=== PATIENT | male | born 1965 | race Caucasian/White ===

== ENCOUNTER 2025-03-02 17:37 | Emergency (ER) | payer OTHER, SELFPAY ==
--- OUTSIDE RECORDS SUMMARY | 2016-07-09 19:00 | XMS_ITS | Continuity of Care Document ---
Author Organization [facility] Address [address] [facility] [address] [place] [address] Phone Care Team Providers Care Sas Clinical Programmer Name Role Phone Bruce WILDER, Ross Unavailable Unavailab le Procedures Procedure Date TTE W/DOPPLER, COMPLETE Advance Directives Directive Yes / No Effective Date File Name No Information Encounters Encounter Description Practice Location Reason(s) For Visit Diagnoses Date Provider Providers Copied on Encounter [facility], [address] [facility] [address], [place], [place], [id number], tel:[phone] [facility] OUTPT [facility] No Information 7 Bruce Hawkins. [address] [facility], [facility] [address], [place], [place], [id number], . tel:[phone] Referring Provider: Ross Barrera, [address] [facility] [address], [place], [address]. tel:[phone] Family History Family Member Type Diagnosis Age At Onset No Information Payers Payer name Insurance type Covered alliance party ID Authoriza tieliseo(s) [employer] PPO CI [id number] Social History Type Description Quantity Date Captured Comments Sex Male Smoking Status No Information Chief Complaint And Reason For Visit No Information Reason For Referral Reason For Referral No Information History Of Present Illness Encounter Date Complaint History Of Prese nt Illness No Information Functional Status Date Functional Assessmen t No Information Instructions Date Instruction Additional Infor mation No Information Assessments Type Assessment Date No Information Patient Care Teams Name Effective Dates (start - stop) Status Members No Information
--- OUTSIDE RECORDS SUMMARY | 2016-07-09 19:00 | XMS_ITS | Continuity of Care Document ---
Author Organization [facility] Address [address] [facility] [address] [place] [address] Phone Care Team Providers Care Scorer Helper Name Role Phone Bruce WILDER, Ross Unavailable Unavailab le Procedures Procedure Date TTE W/DOPPLER, COMPLETE Advance Directives Directive Yes / No Effective Date File Name No Information Encounters Encounter Description Practice Location Reason(s) For Visit Diagnoses Date Provider Providers Copied on Encounter [facility], [address] [facility] [address], [place], [place], [id number], tel:[phone] [facility] OUTPT [facility] No Information [address] [facility], [facility] [address], [place], [place], [id number], . tel:[phone] Referring Provider: Ross Barrera, [address] [facility] [address], [place], [address]. tel:[phone] Family History Family Member Type Diagnosis Age At Onset No Information Payers Payer name Insurance type Covered green party ID Authoriza tieliseo(s) [employer] PPO CI [id number] Social History Type Description Quantity Date Captured [...]
--- OUTSIDE RECORDS SUMMARY | 2025-01-26 12:20 | XMS_ITS | Encounter Summary ---
Author Organization [facility] Address [address] [place] [address] Care Team Providers Care Software Tester Name Role Phone Unavailable Primary Care Provider Unavailabl e Encounter Details Date Type Department Care Team (Latest Contact Info) Description 01/26/2025 12:20 PM CDT Ancillary Procedure Department of Radiology in [place], [place] [address] [place] [address] Harshad Perez M.D. [address] [place] [address] Multiple Myeloma Not Having Achieved Remission (HCC) Social History Tobacco Use Types Packs/Day Years Used Date Smoking Tobacco: Never Assessed Hunger Vital Sign Answer Date Recorded Within the past 12 months, y ou worried that your food would run out before you got the money to buy more. Never true 01/28/20 25 Within the past 12 months, t he food you bought just didn't last and you didn't have money to get more. Never true 01/27/2025 PRAPARE - Transportation Answer Date Re corded In the past 12 months, has l ack of transportation kept you from medical appointments or from getting medications? No 01/05 In the past 12 months, has l ack of transportation kept you from meetings, work, or from getting things needed for daily living? No 01/27/2025 [facility] Utilities Answer Date Recorded In the past 12 months has th e electric, gas, oil, or water company threatened to shut off services in your home? No 01/27/2025 Housing Stability Answer Date Recorded What is your living situation today? I have a [facility] place to live 01/27/2025 Sex and Gender Information Value Date Recorded Sex Assigned at Male 01/27/2025 2:34 PM CDT Legal Sex Male 6:33 AM INFORMATION AND REFERRAL DIRECTOR Gender Identity Male 01/27/2025 2:34 PM CDT Sexual Orientation Straight 01/27/2025 2: 34 PM CDT documented as of this encounter Plan of Treatment Upcoming Encounters Date Type Department Care Team (Latest Contact Info) Description 03/08/2025 8:00 AM CDT Appointment Department of Laboratory Medicine and Pathology, [facility] in [place], [place] [address] [place] [phone] Constantin López M.D. [address] [place] [phone] 03/08/2025 8:45 AM CDT Infusion Department of Oncology in [place], [place] [address] [place] [phone] Constantin López M.D. [address] [place] [phone] 03/08/2025 10:30 AM CDT Comprehensive Visit Department of Vascular Medicine in [place], [place] [address] [place] [phone] Vic Flores M.D. [address] [place] [phone] 03/11/2025 12:30 PM CDT Diagnostic Division of Pulmonary Medicine in [place], [place] [address] [place] [phone] Constantin López M.D. [address] [place] [phone] 03/11/2025 2:00 PM CDT Appointment Department of Vascular Medicine in [place], [place] [address] [place] [phone] Constantin López M.D. [address] [place] [phone] Discharge Disposition: Home or Self Care 03/15/2025 9:00 AM CDT Comprehensive Visit Department of Spine in [place], [place] [address] [place] [phone] Hebert Francis APRN, C.N.P., M.S.N. [address] [place] [phone] 03/15/2025 12:30 PM CDT Appointment Department of Laboratory Medicine and Pathology, [facility] [place], [place] [address] [place] [phone] Harshad Perez M.D. [address] [place] [phone] 03/15/2025 2:30 PM CDT Office Visit Division of Hematology in [place], [place] [address] [place] [phone] Mely Hayden APRN, C.N.P., D.N.P., M.S. [address] [place] [phone] 03/15/2025 4:00 PM CDT Infusion Department of Oncology in [place], [place] [address] [place] [phone] Harshad Perez M.D. [address] [place] [phone] 03/16/2025 1:30 PM CDT Comprehensive Visit Division of Pulmonary Medicine in [place], [place] [address] [place] [phone] Morgan Peck M.D. [address] [place] [phone] 03/22/2025 11:10 AM CDT Appointment Department of Laboratory Medicine and Pathology, [facility] in [place], [place] [address] [place] [address] Harshad Perez M.D. [address] [place] [phone] 03/22/2025 1:00 PM CDT Infusion Department of Oncology in [place], [place] [address] [place] [address] Harshad Perez M.D. [address] [place] [phone] 03/29/2025 9:15 AM CDT Appointment Division of Pulmonary Medicine in [place], [place] [address] [place] [phone] Harshad Perez M.D. [address] [place] [phone] Discharge Disposition: Home or Self Care 03/29/2025 10:30 AM CDT Appointment Department of Laboratory Medicine and Pathology, [facility] in [place], [place] [address] [place] [address] Harshad Perez M.D. [address] [place] [phone] 03/29/2025 11:15 AM CDT Nurse Only Division of Hematology in [place], [place] [address] [place] [phone] Harshad Perez M.D. [address] [place] [phone] 03/29/2025 1:30 PM CDT Infusion Department of Oncology in [place], [place] [address] [place] [phone] Harshad Perez M.D. [address] [place] [phone] 04/05/2025 10:10 AM CDT Appointment Department of Laboratory Medicine and Pathology, [facility] [place], [place] [address] [place] [phone] Harshad Perez M.D. [address] [place] [phone] 04/05/2025 12:00 PM CDT Infusion Department of Oncology in [place], [place] [address] [place] [phone] Harshad Perez M.D. [address] [place] [phone] 04/12/2025 11:40 AM CDT Appointment Department of Laboratory Medicine and Pathology, [facility] [place], [place] [address] [place] [phone] Harshad Perez M.D. [address] [place] [phone] 04/12/2025 1:30 PM CDT Office Visit Division of Hematology in [address] [phone] Tr Hernandez M.D. [address] [place] [phone] 04/12/2025 3:30 PM CDT Infusion Department of Oncology in [place], [place] [address] [place] [phone] Harshad Perez M.D. [address] [place] [phone] 04/19/2025 10:15 AM CDT Infusion Department of Oncology in [place], [place] [address] [place] [phone] Harshad Perez M.D. [address] [place] [phone] 04/26/2025 10:10 AM CDT Appointment Department of Laboratory Medicine and Pathology, [facility] [place], [place] [address] [place] [phone] Harshad Perez M.D. [address] [place] [phone] 04/26/2025 11:00 AM CDT Nurse Only Division of Hematology in [place], [place] [address] [place] [phone] Harshad Perez M.D. [address] [place] [phone] 04/26/2025 12:00 PM CDT Infusion Department of Oncology in [place], [place] [address] [place] [phone] Harshad Perez M.D. [address] [place] [phone] 04/26/2025 1:30 PM CDT Appointment Division of Pulmonary Medicine in [place], [place] [address] [place] [phone] Harshad Perez M.D. [address] [place] [phone] Discharge Disposition: Home or Self Care 05/03/2025 10:15 AM CDT Infusion Department of Oncology in [place], [place] [address] [place] [phone] Harshad Perez M.D. [address] [place] [phone] 05/10/2025 9:40 AM INFORMATION AND REFERRAL DIRECTOR Appointment Department of Laboratory Medicine and Pathology, [facility] in [place], [place] [address] [place] [phone] Constantin López M.D. [address] [place] [phone] 05/10/2025 11:30 AM INFORMATION AND REFERRAL DIRECTOR Office Visit Division of Hematology in [place], [place] [address] [place] [phone] Mely Hayden, ANY, C.N.P., D.N.P., M.S. [address] [place] [phone] 05/10/2025 1:00 PM INFORMATION AND REFERRAL DIRECTOR Infusion Department of Oncology in [place], [place] [address] [place] [address] Constantin López M.D. [address] [place] [phone] 05/17/2025 10:15 AM INFORMATION AND REFERRAL DIRECTOR Infusion Department of Oncology in [place], [place] [address] [place] [address] Constantin López M.D. [address] [place] [phone] 05/24/2025 10:00 AM INFORMATION AND REFERRAL DIRECTOR Appointment Department of Laboratory Medicine and Pathology, [facility], in [place], [place] [address] [place] [phone] Constantin López M.D. [address] [place] [phone] 05/24/2025 10:45 AM INFORMATION AND REFERRAL DIRECTOR Appointment Division of Pulmonary Medicine in [place], [place] [address] [place] [phone] Harshad Perez M.D. [address] [place] [phone] Discharge Disposition: Home or Self Care 05/24/2025 12:00 PM INFORMATION AND REFERRAL DIRECTOR Infusion Department of Oncology in [place], [place] [address] [place] [address] Constantin López M.D. [address] [place] [address] 05/31/2025 10:00 AM INFORMATION AND REFERRAL DIRECTOR Infusion Department of Oncology in [place], [place] [address] [place] [address] Constantin López M.D. [address] [place] [address] documented as of this encounter Procedures Procedure Name Priority Date/Time Associated Diagnosis Comments INTERPRETATION OF OUTSIDE NM PET SCAN RAD - Routine (most inpatients and all outpatients) 01/26/2025 12:21 PM CDT Multiple Myeloma Not Having Achieved Remission (HCC) documented in this encounter Results * Interpretation of Outside NM PET Scan (01/26/2025 12:21 PM CDT) Anatomical Region Laterality Modality Nuclear Medicine PET RST LOS , Nuclear Medicine ARZ LOS, Nuclear Medicine FLA LOS, Nuclear Medicine, Other, Neuroradiology ARZ LOS, Neuroradiology FLA LOS, Neuroradiology RST LOS, Body N/A Nuclear Medicine Impressions 01/27/2025 8:37 PM CDT 1. Intense FDG bone marrow uptake throughout the skeleton with associated numerous lytic changes, consistent with active myelomatous disease. 2. Mildly increased FDG uptake within the nonenlarged spleen, nonspecific and could be seen in the setting of systemic immune reaction. Splenic involvement in multiple myeloma is rare, but cannot be entirely excluded. 3. Mildly FDG avid portocaval and aortocaval lymph nodes may be reactive. * Deauville score: 5 Narrative 01/27/2025 8:37 PM CDT REVISED REPORT: EXAM: INTERPRETATION OF OUTSIDE NM PET SCAN dated 01/20/2025. TECHNIQUE: FDG PET/CT. Please refer to the marginal Outside PET report for details regarding the study protocol in the image acquisition. No multiple reconstructions and fusion of the images from orbits through the mid thigh were available for interpretation. COMPARISON: Outside CT chest abdomen pelvis from 01/17/2025 INDICATION: Newly diagnosed multiple myeloma, staging. Initial treatment strategy. FINDINGS: Intense and diffuse FDG uptake, markedly higher than hepatic background, throughout the visualized skeleton bone marrow with associated numerous lytic changes, consistent with active myelomatous disease. Bilateral subcentimeter upper cervical lymph nodes demonstrating mild FDG uptake, equal to or slightly above blood pool activity (SULLY 10). A few mildly FDG-avid lymph nodes noted in the precaval (SULLY 140) and aortocaval (SULLY 134) regions, at the level of blood pool activity, indeterminate for myelomatous involvement. No other suspicious FDG avid lymph nodes above and below the diaphragm. Diffuse physiologic FDG uptake within the liver. Diffuse increased FDG uptake within the nonenlarged spleen (SUV max: 3.9), which is slightly higher than the hepatic background activity (SUV max: 3.2), nonspecific and could be seen in the setting of systemic immune reaction. Focus of FDG uptake within the gastroesophageal junction, likely inflammatory. Significant incidental findings on the low-dose noncontrast CT: Bilateral subsegmental atelectasis. Splenule. Hepatic cysts. Tiny fat-containing umbilical hernia. Procedure Note Jazmín Deal M.D., Ph.D. - 01/28/2025 REVISED REPORT: EXAM: INTERPRETATION OF OUTSIDE NM PET SCAN dated 01/20/2025. TECHNIQUE: FDG PET/CT. Please refer to the marginal Outside PET reportfor details regarding the study protocol in the image acquisition. Nomultiple reconstructions and fusion of the images from orbits through themid thigh were available for interpretation. COMPARISON: Outside CT chest abdomen pelvis from 01/17/2025 INDICATION: Newly diagnosed multiple myeloma, staging. Initial treatmentstrategy. FINDINGS: Intense and diffuse FDG uptake, markedly higher than hepatic background,throughout the visualized skeleton bone marrow with associated numerouslytic changes, consistent with active myelomatous disease. Bilateral subcentimeter upper cervical lymph nodes demonstrating mild FDGuptake, equal to or slightly above blood pool activity (SULLY 10). A fewmildly FDG-avid lymph nodes noted in the precaval (SULLY 140) and aortocaval(SULLY 134) regions, at the level of blood pool activity, indeterminate for myelomatous involvement. No othersuspicious FDG avid lymph nodes above and below the diaphragm. Diffuse physiologic FDG uptake within the liver. Diffuse increased FDG uptake within the nonenlarged spleen (SUV max: 3.9),which is slightly higher than the hepatic background activity (SUV max:3.2), nonspecific and could be seen in the setting of systemic immunereaction. Focus of FDG uptake within the gastroesophageal junction, likelyinflammatory. Significant incidental findings on the low-dose noncontrast CT: Bilateralsubsegmental atelectasis. Splenule. Hepatic cysts. Tiny fat-containingumbilical hernia. IMPRESSION: 1. Intense FDG bone marrow uptake throughout the skeleton with associatednumerous lytic changes, consistent with active myelomatous disease. 2. Mildly increased FDG uptake within the nonenlarged spleen, nonspecificand could be seen in the setting of systemic immune reaction. Splenicinvolvement in multiple myeloma is rare, but cannot be entirelyexcluded. 3. Mildly FDG avid portocaval and aortocaval lymph nodes may bereactive. * Deauville score: 5 us Harshad Perez M.D. [facility] PROCEDURES Edite d Result - Final documented in this encounter Visit Diagnoses Diagnosis Multiple Myeloma Not Having Achieved Remission (HCC) documented in this encounter
--- OUTSIDE RECORDS SUMMARY | 2025-01-27 10:44 | XMS_ITS | Encounter Summary ---
Author Organization [facility] Address [address] [place] [id number] Care Team Providers Care Third Hand Name Role Phone Unavailable Primary Care Provider Unavailabl e Encounter Details Date Type Department Care Team (Latest Contact Info) Description 01/27/2025 10:44 AM CDT - 01/27/2025 11:59 PM CDT Hospital Encounter Department of Laboratory Medicine and Pathology, [facility], in [place], [place] [address] [place] [address] Harshad Perez M.D. [address] [place] [address] Multiple Myeloma Not Having Achieved Remission (HCC) Discharge Disposition: Home or Self Care Social History Tobacco Use Types Packs/Day Years Used Date Smoking Tobacco: Former Cigarettes 0.8 36.2 0 12/10/1974 - 03/06/2011 Smokeless Tobacco: Never Comments:I started smoking b efore entering high school, but probably didn't start to inhale until my freshman year. Between the time I started and the time I finally stopped I had quit several times, once for as long as three years. Alcohol Use Standard Drinks/Week Comments Yes 0 (1 standard drink = 0.6 oz pure alcohol) I seldom drink alcohol now, just a beer or glass of wine at family holidays. In my late teens through my twenties I drank on weekends. Hunger Vital Sign Answer Date Recorded Within [...] things needed for daily living? No 01/27/2025 [facility] Utilities Answer Date Recorded In the past 12 months has [employer] gas, oil, or water [employer] threatened to shut off services in your home? No 01/27/2025 Housing Stability Answer Date Recorded What is your living situation today? 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 100 tablet 3 01/27/2025 ondansetron (Zofran) 8 mg tabletIndication s:Multiple Myeloma Not Having Achieved Remission (HCC) Take 1 tablet (8 mg total) by mouth every 8 (eight) hours as needed for nausea or vomiting (unrelieved by prochlorperazine). 30 tablet 3 01/28/2025 12:05 PM CDT 01/27/2025 6 prochlorperazine (Compazine) 10 mg tabletIndication s:Multiple Myeloma Not Having Achieved Remission (HCC) Take 1 tablet (10 mg total) by mouth every 6 (six) hours as needed for nausea or vomiting. 30 tablet 3 01/28/2025 12:05 PM CDT 01/27/2025 6 dexAMETHasone (Decadron) 4 mg tabletIndication s:Multiple Myeloma Not Having Achieved Remission (HCC) Take 10 tablets (40 mg total) by mouth once a week for 4 doses. Take on days 1, 8, 15, and 22. If it is a day you are receiving daratumumab, take dexAMETHasone prior to infusion appointment. 40 tablet 01/28/2025 12:05 PM CDT 01/28/2025 5 acyclovir (Zovirax) 400 mg tabletIndication s:Multiple Myeloma Not Having Achieved Remission (HCC) Take 1 tablet (400 mg total) by mouth 2 (two) times a day. 60 tablet 6 01/28/2025 12:05 PM CDT 01/27/2025 5 levoFLOXacin (Levaquin) 250 mg tabletIndication s:Multiple Myeloma Not Having Achieved Remission (HCC) Take 1 tablet (250 mg total) by mouth daily. 30 tablet 2 01/28/2025 12:05 PM CDT 01/27/2025 5 documented as of this encounter Plan of Treatment Upcoming Encounters Date Type Department Care Team (Latest Contact Info) Description 03/08/2025 8:00 AM CDT Appointment Department of Laboratory Medicine and Pathology, [facility] in [place], [place] [address] [place] [address] Constantin López M.D. [address] [place] [phone] 03/08/2025 8:45 AM CDT Infusion Department of Oncology in [place], [place] [address] [place] [phone] Constantin López M.D. [address] [place] [phone] 03/08/2025 10:30 AM CDT Comprehensive Visit Department of Vascular Medicine in [place], [place] [address] [place] [phone] Vic Flores M.D. [address] [place] [phone] 03/11/2025 12:30 PM CDT Diagnostic Division of Pulmonary Medicine in [place], [place] [address] [place] [phone] Constantin López M.D. [address] [place] [phone] 03/11/2025 2:00 PM CDT Appointment Department of Vascular Medicine in [place], [place] [address] [place] [address] Constantin López M.D. [address] [place] [phone] Discharge Disposition: Home or Self Care 03/15/2025 9:00 AM CDT Comprehensive Visit Department of Spine in [place], [place] [address] [place] [phone] Hebert Francis APRN, C.N.P., M.S.N. [address] [place] [phone] 03/15/2025 12:30 PM CDT Appointment Department of Laboratory Medicine and Pathology, [facility] in [place], [place] [address] [place] [phone] Harshad Perez M.D. [address] [place] [phone] 03/15/2025 2:30 PM CDT Office Visit Division of Hematology in [place], [place] [address] [place] [phone] Mely Hayden APRN, C.N.P., D.N.P., M.S. [address] [place] [phone] 03/15/2025 4:00 PM CDT Infusion Department of Oncology in [place], [place] [address] [place] [phone] Harshad Perez M.D. [address] [place] [phone] 03/16/2025 1:30 PM CDT Comprehensive Visit Division of Pulmonary Medicine in [place], [place] [address] [place] [phone] Morgan Peck M.D. [address] [place] [phone] 03/22/2025 11:10 AM CDT Appointment Department of Laboratory Medicine and Pathology, [facility] in [place], [place] [address] [place] [phone] Harshad Perez M.D. [address] [place] [phone] 03/22/2025 1:00 PM CDT Infusion Department of Oncology in [place], [place] [address] [place] [phone] Harshad Perez M.D. [address] [place] [phone] 03/29/2025 9:15 AM CDT Appointment Division of Pulmonary Medicine in [place], [place] [address] [place] [address] Harshad Perez M.D. [address] [place] [phone] Discharge Disposition: Home or Self Care 03/29/2025 10:30 AM CDT Appointment Department of Laboratory Medicine and Pathology, [facility], in [place], [place] [address] [place] [address] Harshad Perez M.D. [address] [place] [phone] 03/29/2025 11:15 AM CDT Nurse Only Division of Hematology in [place], [place] [address] [place] [address] Harshad Perez M.D. [address] [place] [phone] 03/29/2025 1:30 PM CDT Infusion Department of Oncology in [place], [place] [address] [place] [phone] Harshad Perez M.D. [address] [place] [phone] 04/05/2025 10:10 AM CDT Appointment Department of Laboratory Medicine and Pathology, [facility] in [place], [place] [address] [place] [phone] Harshad Perez M.D. [address] [place] [phone] 04/05/2025 12:00 PM CDT Infusion Department of Oncology in [place], [place] [address] [place] [phone] Harshad Perez M.D. [address] [place] [phone] 04/12/2025 11:40 AM CDT Appointment Department of Laboratory Medicine and Pathology, [facility] in [place], [place] [address] [place] [phone] Harshad Perez M.D. [address] [place] [phone] 04/12/2025 1:30 PM CDT Office Visit Division of Hematology in [place], [place] [address] [place] [phone] Tr Hernandez M.D. [address] [place] [phone] 04/12/2025 3:30 PM CDT Infusion Department of Oncology in [place], [place] [address] [place] [address] Harshad Perez M.D. [address] [place] [phone] 04/19/2025 10:15 AM CDT Infusion Department of Oncology in [place], [place] [address] [place] [address] Harshad Perez M.D. [address] [place] [phone] 04/26/2025 10:10 AM CDT Appointment Department of Laboratory Medicine and Pathology, [facility] in [place], [place] [address] [place] [address] Harshad Perez M.D. [address] [place] [phone] 04/26/2025 11:00 AM CDT Nurse Only Division of Hematology in [place], [place] [address] [place] [address] Harshad Perez M.D. [address] [place] [phone] 04/26/2025 12:00 PM CDT Infusion Department of Oncology in [place], [place] [address] [place] [address] Harshad Perez M.D. [address] [place] [phone] 04/26/2025 1:30 PM CDT Appointment Division of Pulmonary Medicine in [place], [place] [address] [place] [phone] Harshad Perez M.D. [address] [place] [phone] Discharge Disposition: Home or Self Care 05/03/2025 10:15 AM CDT Infusion Department of Oncology in [place], [place] [address] [place] [phone] Harshad Perez M.D. [address] [place] [phone] 05/10/2025 9:40 AM STOPPING BUILDER Appointment Department of Laboratory Medicine and Pathology, [place], [place] [address] [place] [phone] Constantin López M.D. [address] [place] [phone] 05/10/2025 11:30 AM STOPPING BUILDER Office Visit Division of Hematology in [place], [place] [address] [place] [phone] Mely Hayden APRN, C.N.P., D.N.P., M.S. [address] [place] [phone] 05/10/2025 1:00 PM STOPPING BUILDER Infusion Department of Oncology in [place], [place] [address] [place] [phone] Constantin López M.D. [address] [place] [phone] 05/17/2025 10:15 AM STOPPING BUILDER Infusion Department of Oncology in [place], [place] [address] [place] [phone] Constantin López M.D. [address] [place] [phone] 05/24/2025 10:00 AM STOPPING BUILDER Appointment Department of Laboratory Medicine and Pathology, [facility] in [place], [place] [address] [place] [phone] Constantin López M.D. [address] [place] [phone] 05/24/2025 10:45 AM STOPPING BUILDER Appointment Division of Pulmonary Medicine in [place], [place] [address] [place] [phone] Harshad Perez M.D. [address] [place] [phone] Discharge Disposition: Home or Self Care 05/24/2025 12:00 PM STOPPING BUILDER Infusion Department of Oncology in [place], [place] [address] [place] [phone] Constantin López M.D. [address] [place] [phone] 05/31/2025 10:00 AM STOPPING BUILDER Infusion Department of Oncology in [place], [place] [address] [place] [address] Constantin López M.D. [address] [place] [phone] documented as of this encounter Procedures Procedure Name Priority Date/Time Associated Diagnosis Comments QUANTITATIVE M-PROTEIN STUDY, S Routine 01/27/2025 11:20 AM CDT Multiple Myeloma Not Having Achieved Remission (HCC) HIV-1/-2 AG AND AB SCREEN, PLASMA Routine 01/27/2025 11:20 AM CDT Multiple Myeloma Not Having Achieved Remission (HCC) PLASMA CELL ASSESSMENT, B Routine 01/27/2025 11:20 AM CDT Multiple Myeloma Not Having Achieved Remission (HCC) NT-PRO B-TYPE NATRIURETIC PEPTIDE (BNP), S Routine 01/27/2025 11:20 AM CDT Multiple Myeloma Not Having Achieved Remission (HCC) IMMUNOGLOBULIN FREE LIGHT CHAINS, S Routine 01/27/2025 11:20 AM CDT Multiple Myeloma Not Having Achieved Remission (HCC) HBC TOTAL AB, SERUM Routine 01/27/2025 1 1:20 AM CDT Multiple Myeloma Not Having Achieved Remission (HCC) HBS ANTIBODY, SERUM Routine 01/27/2025 1 1:20 AM CDT Multiple Myeloma Not Having Achieved Remission (HCC) HEPATITIS B SURFACE ANTIGEN Routine 01/27/2025 11:20 AM CDT Multiple Myeloma Not Having Achieved Remission (HCC) CBC WITH DIFFERENTIAL, B Routine 025 11:20 AM CDT Multiple Myeloma Not Having Achieved Remission (HCC) URIC ACID, S/P Routine 01/27/2025 11:20 AM CDT Multiple Myeloma Not Having Achieved Remission (HCC) TROPONIN T, 5TH GEN, P Routine 11:20 AM CDT Multiple Myeloma Not Having Achieved Remission (HCC) ALANINE AMINOTRANSFERASE (ALT), S/P Routine 01/27/2025 11:20 AM CDT Multiple Myeloma Not Having Achieved Remission (HCC) ASPARTATE AMINOTRANSFERASE (AST), S/P Routine 01/27/2025 11:20 AM CDT Multiple Myeloma Not Having Achieved Remission (HCC) POTASSIUM, S/P Routine 01/27/2025 11:20 AM CDT Multiple Myeloma Not Having Achieved Remission (HCC) ALKALINE PHOSPHATASE, S/P Routine 01/27/2025 11:20 AM CDT Multiple Myeloma Not Having Achieved Remission (HCC) CREATININE WITH EGFR, S/P Routine 01/27/2025 11:20 AM CDT Multiple Myeloma Not Having Achieved Remission (HCC) CALCIUM, TOT, S/P Routine 01/27/2025 11: 20 AM CDT Multiple Myeloma Not Having Achieved Remission (HCC) BILIRUBIN, TOT, S/P Routine 01/27/2025 1 1:20 AM CDT Multiple Myeloma Not Having Achieved Remission (HCC) ALBUMIN, S/P Routine 01/27/2025 11:20 AM CDT Multiple Myeloma Not Having Achieved Remission (HCC) documented in this encounter Results * (ABNORMAL) Uric Acid (01/27/2025 11:20 AM CDT) [facility] Uric Acid, S 9.1(H) 3.7 - 8.0 mg/dL 01/27/2025 12:34 PM CDT DT Blood (Blood, Venous) 01/27/2025 11:20 AM CDT 01/27/2025 11:42 AM CDT us Harshad Perez M.D. LAB BLOOD ADD-ON Final Result [facility] [address] [place] [address], [facility] [address] [place] [address] * HBc Total Ab, Serum (01/27/2025 11:20 AM CDT) [facility] HBc Total Ab, S Negative Negative 01/27/2025 4:02 PM CDT [facility] Blood (Blood, Venous) 01/27/2025 11:20 AM CDT 01/27/2025 3:02 PM CDT Harshad Perez M.D. LAB MICROBIOLOGY - BLOO D ORDERABLES Final Result [facility] [address] [place] [address] [facility] [address] [place] [address] * HBs Antibody, Serum (01/27/2025 11:20 AM CDT) [facility] HBs Antibody, S Positive 4:02 PM CDT [facility] Comment: Patient is considered to have been exposed to HBV or immune from HBV vaccination. ----REFERENCE VALUE---- Unvaccinated: Negative Vaccinated: Positive HBs Antibody, Quantitative, S 201 mIU/mL 01/27/2025 4:02 PM CDT [facility] Comment: ----REFERENCE VALUE---- Unvaccinated: <8.5 mIU/mL Vaccinated: >=11.5 mIU/mL Blood (Blood, Venous) 01/27/2025 11:20 AM CDT 01/27/2025 3:02 PM CDT us Harshad Perez M.D. LAB MICROBIOLOGY - BLOO D ORDERABLES Final Result Performing Organization Address City/[facility]/ZIP Co de Phone Number [facility] [address] [place] [address] [facility] [address] [place] [place] [address] * Hepatitis B Surface Antigen (01/27/2025 11:20 AM CDT) [facility] HBs Antigen, S Negative Negative 01/27/2025 4:02 PM CDT [facility] Blood (Blood, Venous) 01/27/2025 11:20 AM CDT 01/27/2025 3:02 PM CDT us Harshad Peerz M.D. LAB MICROBIOLOGY - BLOO D ORDERABLES Final Result [facility] [address] [place] [address] [facility] [address] [place] [address] * HIV-1/-2 Ag and Ab Screen, Plasma (01/27/2025 11:20 AM CDT) [facility] HIV-1/-2 Ag and Ab Screen, P Negative Negative 01/27/2025 3:18 PM CDT [facility] Comment: Negative result does not rule out HIV infection. If exposure to HIV infection occurred <14 days ago, contact the laboratory to request addition of HIV-1/HIV-2 RNA detection, Plasma (HIP12). Blood (Blood, Venous) 01/27/2025 11:20 AM CDT 01/27/2025 2:05 PM CDT us Harshad Perez M.D. LAB MICROBIOLOGY - BLOO D ORDERABLES Final Result [facility] [address] [place] [address] [facility] [address] [place] [address] * Calcium, Total (01/27/2025 11:20 AM CDT) Pathologist [facility] Calcium, Total, S 8.8 8.8 - 10.2 mg/dL 01/27/2025 12:34 PM CDT DT Blood (Blood, Venous) 01/27/2025 11:20 AM CDT 01/27/2025 11:42 AM CDT us Harshad Perez M.D. LAB BLOOD ADD-ON Final Result Performing Organization Address City/[facility] Co de Phone Number [facility] [address] [place] [address], [facility] [address] [place] [address] * (ABNORMAL) Immunoglobulin Free Light Chains (01/27/2025 11:20 AM CDT) [place] Free Light Chain, S 452(H) 0.3300 - 1.94 mg/dL 01/27/2025 3:45 PM CDT [facility] Lambda Free Light Chain, S 0.2800(L) 0.5700 - 2.63 mg/dL 01/27/2025 3:29 PM CDT [facility] [place]/Lambda FLC Ratio >1000(H) 0.2600 - 1.65 01/27/2025 3:45 PM CDT [facility] Blood (Blood, Venous) 01/27/2025 11:20 AM CDT 01/27/2025 2:34 PM CDT Harshad Perez M.D. LAB BLOOD ADD-ON Final Result [facility] [address] [place] [address] [address] [place] [address] * Albumin (01/27/2025 11:20 AM CDT) Pathologist [facility] Albumin, S 3.5 3.5 - 5.0 g/dL 01/27/2025 12:34 PM CDT [facility] Blood (Blood, Venous) 01/27/2025 11:20 AM CDT 01/27/2025 11:42 AM CDT Harshad Perez M.D. LAB BLOOD ADD-ON Final Result [facility] [address] [place] [address], [facility] [address] [place] [address] * (ABNORMAL) Quantitative M-protein Study (01/27/2025 11:20 AM CDT) Immunoglobulin A (IgA), S 27(L) 61 - 356 mg/dL 01/27/2025 4:48 PM CDT [facility] Immunoglobulin M (IgM), S <5(L) 37 - 286 mg/dL 01/27/2025 5:41 PM CDT [facility] Immunoglobulin G (IgG), S 3810(H) 767 - 1590 mg/dL 01/27/2025 4:48 PM CDT [facility] Therapeutic Antibody Administered? Unspecified 01/27/2025 3:58 PM CDT [facility] M-protein GK 3.423(H) g/dL 01/28/2025 12:42 PM CDT [facility] Glycosylation Yes(A) 01/28/2025 12:42 PM CDT [facility] Flag, M-protein Isotype Positive(A) Negative 01/28/2025 12:42 PM CDT [facility] QMPTS Interpretation IgG kappa 3.423 g/dL Glycosylated. Patients with glycosylated light chains are at higher risk for AL amyloidosis. C/W myeloma, smoldering myeloma. Suggest Monoclonal Protein Studies, 24 Hour, Urine. 01/28/2025 12:42 PM CDT [facility] Comment: ----ADDITIONAL INFORMATION---- The submitted sample was assayed by five separate immunopurifications for IgG, IgA, IgM, kappa and lambda. The result reflects the findings of either no monoclonal protein detected or those monoclonal immunoglobulins that were detected. This test was developed and its performance characteristics determined by [facility] in a manner consistent with CLIA requirements. This test has not been cleared or approved by the U.S. Food and Drug Administration. Blood (Blood, Venous) 01/27/2025 11:20 AM CDT 01/27/2025 3:08 PM CDT Narrative [facility] - 01/28/2025 12:42 PM CDT Specimen Information: Specimen ID: [id number] Specimen Type: Blood Specimen Collection Start Date: 01/27/2025 11:20 AM Specimen Received Date: 01/27/2025 3:08 PM Specimen ID: [id number] Specimen Type: Blood Specimen Collection Start Date: 01/27/2025 11:20 AM Specimen Received Date: 01/27/2025 3:58 PM us Harshad Perez M.D. LAB BLOOD ADD-ON Final Result [facility] [address] [place] [address] [facility] [address] [place] [address] [facility] [address] [place] [address] [place] [address] * ALT (Alanine Aminotransferase) (01/27/2025 11:20 AM CDT) Alanine Aminotransferase (ALT), S 30 7 - 55 U/L 01/27/2025 12:34 PM CDT [facility] Blood (Blood, Venous) 01/27/2025 11:20 AM CDT 01/27/2025 11:42 AM CDT us Harshad Perez M.D. LAB BLOOD ADD-ON Final Result Performing Organization Address City/[facility]/ZIP Co de Phone Number [facility] [address] [place], [place] [id number] [place] [address] 200 [place] [address] * AST (Aspartate Aminotransferase) (01/27/2025 11:20 AM CDT) Aspartate Aminotransferase (AST), S 34 8 - 48 U/L 01/27/2025 12:34 PM CDT [facility] Blood (Blood, Venous) 01/27/2025 11:20 AM CDT 01/27/2025 11:42 AM CDT us Harshad Perez M.D. LAB BLOOD ADD-ON Final Result Performing Organization Address City/[facility]/ZIP Co de Phone Number [facility] [address] [place] [address], [facility] [address] [place] [address] * Alkaline Phosphatase (01/27/2025 11:20 AM CDT) Alkaline Phosphatase, S 73 40 - 129 U/L 01/27/2025 12:34 PM CDT [facility] Blood (Blood, Venous) 01/27/2025 11:20 AM CDT 01/27/2025 11:42 AM CDT us Harshad Perez M.D. LAB BLOOD ADD-ON Final Result Performing Organization Address City/[facility]/ZIP Co de Phone Number [facility] [address] [place] [address], [facility] [address] [place] [address] * Plasma Cell Assessment (01/27/2025 11:20 AM CDT) Blood Plasma Cell Light Chain Monotypic kappa plasma cells 01/28/2025 10:38 AM CDT [facility] # Monotypic PCs per 150,000 events 257 events 01/28/2025 10:38 AM CDT [facility] PC Event Interpretation High number of circulating monotypic plasma cells. Reviewed by: Craig Barrow D.O., M.S. 01/28/2025 10:38 AM CDT [facility] Comment: ----ADDITIONAL INFORMATION---- Plasma cell analysis was performed with antibodies to the following antigens: CD19, CD38, CD45, CD138 and kappa and lambda cytoplasmic immunoglobulin light chains. This test was developed using an analyte specific reagent. Its performance characteristics were determined by [facility] in a manner consistent with CLIA requirements. This test has not been cleared or approved by the U.S. Food and Drug Administration. Blood (Blood, Venous) 01/27/2025 11:20 AM CDT 01/27/2025 11:46 AM CDT Harshad Perez M.D. LAB BLOOD NON ADD-ON Fi nal Result Performing Organization Address City/[facility]/ZIP Co de Phone Number [facility] [address] [place] [address] * Bilirubin, Total (01/27/2025 11:20 AM CDT) Pathologist [facility] Bilirubin, Total, S 0.7 0.0 - 1.2 mg/dL 01/27/2025 12:34 PM CDT [facility] Blood (Blood, Venous) 01/27/2025 11:20 AM CDT 01/27/2025 11:42 AM CDT Harshad Perez M.D. LAB BLOOD ADD-ON Final Result [facility] [address] [place] [address], [place] [address] [place] [address] * Potassium (01/27/2025 11:20 AM CDT) Potassium, S 4.5 3.6 - 5.2 mmol/L 01/27/2025 12:34 PM CDT [facility] Blood (Blood, Venous) 01/27/2025 11:20 AM CDT 01/27/2025 11:42 AM CDT Harshad Perez M.D. LAB BLOOD ADD-ON Final Result [facility] [address] [place] [address], [facility] [address] [place] [address] * (ABNORMAL) Creatinine with Estimated GFR (01/27/2025 11:20 AM CDT) Creatinine 1.44(H) 0.74 - 1.35 mg/dL 01/27/2025 12:34 PM CDT [facility] Estimated GFR (eGFR) 55(L) >=60 mL/min/BSA 01/27/2025 12:34 PM CDT [facility] Comment: Estimated GFR calculated using the 2020 CKD_EPI creatinine equation. Blood (Blood, Venous) 01/27/2025 11:20 AM CDT 01/27/2025 11:42 AM CDT Harshad Perez M.D. LAB BLOOD ADD-ON Final Result [facility] [address] [place] [address], [facility] [address] [place], [place] [address] * (ABNORMAL) CBC with Differential, Blood (01/27/2025 11:20 AM CDT) Hemoglobin 10.4(L) 13.2 - 16.6 g/dL 01/27/2025 11:57 AM CDT DTL Hematocrit 33.1(L) 38.3 - 48.6 % 01/27/2025 11:57 AM CDT DTL Erythrocytes 3.48(L) 4.35 - 5.65 x10(12)/L 01/27/2025 11:57 AM CDT DTL MCV 95.1 78.2 - 97.9 fL 01/27/2025 11:57 AM CDT DTL RBC Distrib Width 15.9(H) 11.8 - 14.5 % 01/27/2025 11:57 AM CDT DTL Platelet Count 1496(CH) 135 - 317 x10(9)/L 01/27/2025 1:06 PM CDT DTL Comment:Results confirmed by smear, no clumping or interference seen. Leukocytes 4.6 3.4 - 9.6 x10(9)/L 01/27/2025 1:06 PM CDT DTL Neutrophils 2.57 1.56 - 6.45 x10(9)/L 01/27/2025 11:57 AM CDT DHPM Lymphocytes 1.68 0.95 - 3.07 x10(9)/L 01/27/2025 11:57 AM CDT DTL Monocytes 0.27 0.26 - 0.81 x10(9)/L 01/27/2025 11:57 AM CDT DTL Eosinophils 0.03 0.03 - 0.48 x10(9)/L 01/27/2025 11:57 AM CDT DTL Basophils <0.03 0.01 - 0.08 x10(9)/L 01/27/2025 11:57 AM CDT DTL Blood (Blood, Venous) 01/27/2025 11:20 AM CDT 01/27/2025 11:45 AM CDT us Harshad Perez M.D. LAB BLOOD ADD-ON Final Result [facility] [address] [place] [address], [facility] DTL [facility] [address] [place] [address] DHPM [facility] [address] [place] [address] * (ABNORMAL) NT-Pro B-Type Natriuretic Peptide (BNP) (01/27/2025 11:20 AM CDT) NT-Pro BNP 685(H) <=88 pg/mL 01/27/2025 12:34 PM CDT DTL Comment: NT-proBNP values less than 300 pg/mL have a 99% negative predictive value for excluding acute congestive heart failure. A cutoff of 1200 pg/mL for patients with an eGFR<60 yields a diagnostic sensitivity and specificity of 89% and 72% for acute congestive heart failure. A diagnostic NT-proBNP cutoff of 900 pg/mL has been suggested in adults 50-75 years of age in the absence of renal failure. Blood (Blood, Venous) 01/27/2025 11:20 AM CDT 01/27/2025 11:42 AM CDT Harshad Perez M.D. LAB BLOOD ADD-ON Final Result [facility] [address] [place] [address], [facility] [address] [place] [address] * (ABNORMAL) Troponin T, 5th Generation (01/27/2025 11:20 AM CDT) Troponin T, 5th gen 17(H) <=15 ng/L 01/27/2025 12:52 PM CDT DTL Blood (Blood, Venous) 01/27/2025 11:20 AM CDT 01/27/2025 11:42 AM CDT Harshad Perez M.D. LAB BLOOD ADD-ON Final Result [facility] [address] [place] [address], [facility] [address] [place] [address] documented in this encounter Visit Diagnoses Diagnosis Multiple Myeloma Not Having Achieved Remission (HCC) documented in this encounter Additional Health Concerns Infection Onset Date Last Indicated Resolved Time Protective Environment 01/27/2025 01/27/2025 documented as of this encounter
--- OUTSIDE RECORDS SUMMARY | 2025-01-27 10:44 | XMS_ITS | Encounter Summary ---
Author Organization [facility] Address [address] [place] [address] Care Team Providers Care Biometrician Name Role Phone Unavailable Primary Care Provider Unavailabl e Encounter Details Date Type Department Care Team (Latest Contact Info) Description 01/27/2025 10:44 AM CDT - 01/27/2025 11:59 PM CDT Hospital Encounter Department of Laboratory Medicine and Pathology, [facility], in [place], [place] [address] [place] [address] Harshad Perez M.D. [address] [place] [address] Multiple Myeloma Not Having Achieved Remission (HCC) [...] things needed for daily living? No 01/27/2025 [facility] Utilities Answer Date Recorded In the past 12 months has [employer], gas, oil, or water [employer] threatened to shut off services in your home? No 01/27/2025 Housing Stability Answer Date Recorded What is your living situation today? 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 [address] [place] [phone] 03/08/2025 8:45 AM CDT Infusion Department of Oncology in [place], [place] [address] [place] [phone] Constantin López M.D. [address] [place] [phone] 03/08/2025 10:30 AM CDT Comprehensive Visit Department of Vascular Medicine in [place], [place] [address] [place] [phone] Vic Flores M.D. [address] [place] [phone] 03/11/2025 12:30 PM CDT Diagnostic Division of Pulmonary Medicine in [place], [place] [address] [place] [phone] Constantin López M.D. [address] [place] [phone] 03/11/2025 2:00 PM CDT Appointment Department of Vascular Medicine in [place], [place] [address] [place] [address] Constantin López M.D. [address] [place] [phone] Discharge Disposition: Home or Self Care 03/15/2025 9:00 AM CDT Comprehensive Visit Department of Spine in [place], [place] [address] [place] [phone] Hebert Francis APRN, C.N.P., M.S.N. [address] [place] [phone] 03/15/2025 12:30 PM CDT Appointment Department of Laboratory Medicine and Pathology, [facility] in [place], [place] [address] [place] [phone] Harshad Perez M.D. [address] [place] [phone] 03/15/2025 2:30 PM CDT Office Visit Division of Hematology in [place], [place] [address] [place] [phone] Mely Hayden APRN, C.N.P., D.N.P., M.S. [address] [place] [phone] 03/15/2025 4:00 PM CDT Infusion Department of Oncology in [place], [place] [address] [place] [phone] Harshad Perez M.D. [address] [place] [phone] 03/16/2025 1:30 PM CDT Comprehensive Visit Division of Pulmonary Medicine in [place], [place] [address] [place] [phone] Morgan Peck M.D. [address] [place] [phone] 03/22/2025 11:10 AM CDT Appointment Department of Laboratory Medicine and Pathology, [facility] in [place], [place] [address] [place] [phone] Harshad Perez M.D. [address] [place] [phone] 03/22/2025 1:00 PM CDT Infusion Department of Oncology in [place], [place] [address] [place] [phone] Harshad Perez M.D. [address] [place] [phone] 03/29/2025 9:15 AM CDT Appointment Division of Pulmonary Medicine in [place], [place] [address] [place] [address] Harshad Perez M.D. [address] [place] [phone] Discharge Disposition: Home or Self Care 03/29/2025 10:30 AM CDT Appointment Department of Laboratory Medicine and Pathology, [facility], in [place], [place] [address] [place] [address] Harshad Perez M.D. [address] [place] [phone] 03/29/2025 11:15 AM CDT Nurse Only Division of Hematology in [place], [place] [address] [place] [address] Harshad Perez M.D. [address] [place] [phone] 03/29/2025 1:30 PM CDT Infusion Department of Oncology in [place], [place] [address] [place] [phone] Harshad Perez M.D. [address] [place] [phone] 04/05/2025 10:10 AM CDT Appointment Department of Laboratory Medicine and Pathology, [facility] in [place], [place] [address] [place] [phone] Harshad Perez M.D. [address] [place] [phone] 04/05/2025 12:00 PM CDT Infusion Department of Oncology in [place], [place] [address] [place] [phone] Harshad Perez M.D. [address] [place] [phone] 04/12/2025 11:40 AM CDT Appointment Department of Laboratory Medicine and Pathology, [facility] in [place], [place] [address] [place] [phone] Harshad Perez M.D. [address] [place] [phone] 04/12/2025 1:30 PM CDT Office Visit Division of Hematology in [place], [place] [address] [place] [phone] Tr Hernandez M.D. [address] [place] [phone] 04/12/2025 3:30 PM CDT Infusion Department of Oncology in [place], [place] [address] [place] [address] Harshad Perez M.D. [address] [place] [phone] 04/19/2025 10:15 AM CDT Infusion Department of Oncology in [place], [place] [address] [place] [address] Harshad Perez M.D. [address] [place] [phone] 04/26/2025 10:10 AM CDT Appointment Department of Laboratory Medicine and Pathology, [facility] in [place], [place] [address] [place] [address] Harshad Perez M.D. [address] [place] [phone] 04/26/2025 11:00 AM CDT Nurse Only Division of Hematology in [place], [place] [address] [place] [address] Harshad Perez M.D. [address] [place] [phone] 04/26/2025 12:00 PM CDT Infusion Department of Oncology in [place], [place] [address] [place] [address] Harsahd Perez M.D. [address] [place] [phone] 04/26/2025 1:30 PM CDT Appointment Division of Pulmonary Medicine in [place], [place] [address] [place] [address] Harshad Perez M.D. [address] [place] [phone] Discharge Disposition: Home or Self Care 05/03/2025 10:15 AM CDT Infusion Department of Oncology in [place], [place] [address] [place] [phone] Harshad Perez M.D. [address] [place] [phone] 05/10/2025 9:40 AM AUTOMOTIVE REPAIR TECHNICIAN Appointment Department of Laboratory Medicine and Pathology, [place], [place] [address] [place] [phone] Constantin López M.D. [address] [place] [phone] 05/10/2025 11:30 AM AUTOMOTIVE REPAIR TECHNICIAN Office Visit Division of Hematology in [place], [place] [address] [place] [phone] Mely Hayden APRN, C.N.P., D.N.P., M.S. [address] [place] [phone] 05/10/2025 1:00 PM AUTOMOTIVE REPAIR TECHNICIAN Infusion Department of Oncology in [place], [place] [address] [place] [phone] Constantin López M.D. [address] [place] [phone] 05/17/2025 10:15 AM AUTOMOTIVE REPAIR TECHNICIAN Infusion Department of Oncology in [place], [place] [address] [place] [phone] Constantin López M.D. [address] [place] [phone] 05/24/2025 10:00 AM AUTOMOTIVE REPAIR TECHNICIAN Appointment Department of Laboratory Medicine and Pathology, [facility] in [place], [place] [address] [place] [phone] Constantin López M.D. [address] [place] [phone] 05/24/2025 10:45 AM AUTOMOTIVE REPAIR TECHNICIAN Appointment Division of Pulmonary Medicine in [place], [place] [address] [place] [phone] Harshad Perez M.D. [address] [place] [phone] Discharge Disposition: Home or Self Care 05/24/2025 12:00 PM AUTOMOTIVE REPAIR TECHNICIAN Infusion Department of Oncology in [place], [place] [address] [place] [phone] Constantin López M.D. [address] [place] [phone] 05/31/2025 10:00 AM AUTOMOTIVE REPAIR TECHNICIAN Infusion Department of Oncology in [place], [place] [address] [place] [address] Constantin López M.D. [address] [place] [phone] documented as of this encounter Procedures Procedure Name Priority Date/Time Associated Diagnosis Comments MONOCLONAL PROTEIN STUDY, 24 HR, U Routine 01/28/2025 11:42 AM CDT Multiple Myeloma Not Having Achieved Remission (HCC) documented in this encounter Results * (ABNORMAL) Monoclonal Protein Study, 24 hour, Urine (01/28/2025 11:42 AM CDT) Total Protein, 24 HR, U 169 <229 mg/24 h 01/28/2025 1:13 PM CDT DTL Collection Duration 24 h 01/28 12:10 PM CDT DTL Urine Volume 2821 mL 01/28/2025 12:10 PM CDT DTL Flag M-protein Isotype MS, 24 HR, U Positive(A) Negative 01/31/2025 3:55 PM CDT [facility]SC M-protein Isotype MS, 24 HR, U Frisbee, monoclonal. ~The M-protein light chain is glycosylated. Patients with glycosylated light chains are at higher risk for AL amyloidosis. 01/31/2025 3:55 PM CDT [facility] Comment: ----ADDITIONAL INFORMATION---- The submitted sample was assayed by five separate immunopurifications for IgG, IgA, IgM, kappa and lambda. The result reflects the findings of either no monoclonal protein detected or those monoclonal immunoglobulins that were detected. This test was developed and its performance characteristics determined by [facility] in a manner consistent with CLIA requirements. This test has not been cleared or approved by the U.S. Food and Drug Administration. Albumin, mg/24 h 25.4 mg/24 h 02/02/20 11:40 AM CDT [facility] Alpha-1 globulin, mg/24 h 6.8 mg/24 h 02/01/2025 11:40 AM CDT [facility] Alpha-2 globulin, mg/24 h 32.1 mg/24 h 02/01/2025 11:40 AM CDT [facility] Beta globulin, mg/24 h 23.7 mg/24 h 02/01/2025 11:40 AM CDT [facility] Gamma globulin, mg/24 h 81.1 mg/24 h 02/01/2025 11:40 AM CDT [facility] A/G Ratio 0.18 02/01/2025 11:40 AM CDT [facility] Impression Small abnormality in gamma fraction. See Isotype. 02/01/2025 11:40 AM CDT [facility] Urine (Urine, 24 Hours) 01/28/2025 11:42 AM CDT 01/28/2025 2:53 PM CDT us Harshad Perez M.D. LAB URINE ORDERABLES Fi nal Result [facility] [address] [place] [address] [facility] [address] [place] [address] [facility] [address] [place] [address] [place] [address] documented in this encounter Visit Diagnoses Diagnosis Multiple Myeloma Not Having Achieved Remission (HCC) documented in this encounter Additional Health Concerns Infection Onset Date Last Indicated Resolved Time Protective Environment 01/27/2025 01/27/2025 documented as of this encounter
--- OUTSIDE RECORDS SUMMARY | 2025-01-27 11:20 | XMS_ITS | Encounter Summary ---
Author Organization [facility] Address [address] [place] [id number] Care Team Providers Care Color Card Maker Name Role Phone Unavailable Primary Care Provider Unavailabl e Reason for Visit * Outpatient (Routine) - Closed Specialty Diagnoses / Procedures Referred By Teresa carvalho Referred To Contact Diagnoses Multiple Myeloma Not Having Achieved Remission (HCC) Procedures ECG 12 Lead NV EKG 12 LEAD W I&R Harshad Perez M.D. 200 [place] [address] Phone: tel: fax: [email or web address] Referral ID Status Reason Start Date Expiration Date Visits Re quested Visits Authorized [id number] Closed 01/26/2025 04/28/2026 1 1 Encounter Details Date Type Department Care Team (Latest Contact Info) Description 01/27/2025 11:20 AM CDT Ancillary Procedure Department of Cardiovascular Medicine in [place], [place] [address] [place] [address] Harshad Perez M.D. [address] [place] [address] Multiple Myeloma Not Having Achieved Remission (HCC) [...] things needed for daily living? No 01/27/2025 [facility] Utilities Answer Date Recorded In the past 12 months has e electric, gas, oil, or water company threatened to shut off services in your home? No 01/27/2025 Housing Stability Answer Date Recorded What is your living situation today? 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 200 [place] [phone] 03/08/2025 8:45 AM CDT Infusion Department of Oncology in [place], [place] [address] [place] [phone] Constantin López M.D. [address] [place] [phone] 03/08/2025 10:30 AM CDT Comprehensive Visit Department of Vascular Medicine in [place], [place] [address] [place] [phone] Vic Flores M.D. [address] [place] [phone] 03/11/2025 12:30 PM CDT Diagnostic Division of Pulmonary Medicine in [place], [place] [address] [place] [phone] Constantin López M.D. [address] [place] [phone] 03/11/2025 2:00 PM CDT Appointment Department of Vascular Medicine in [place], [place] [address] [place] [phone] Constantin López M.D. [address] [place] [phone] Discharge Disposition: Home or Self Care 03/15/2025 9:00 AM CDT Comprehensive Visit Department of Spine in [place], [place] [address] [place] [phone] Hebert Francis APRN, C.N.P., M.S.N. [address] [place] [phone] 03/15/2025 12:30 PM CDT Appointment Department of Laboratory Medicine and Pathology, [facility], in [place], [place] [address] [place] [phone] Harshad Perez M.D. [address] [place] [phone] 03/15/2025 2:30 PM CDT Office Visit Division of Hematology in [place], [place] [address] [place] [phone] Mely Hayden APRN, C.N.P., D.N.P., M.S. [address] [place] [phone] 03/15/2025 4:00 PM CDT Infusion Department of Oncology in [place], [place] [address] [place] [phone] Harshad Perez M.D. [address] [place] [phone] 03/16/2025 1:30 PM CDT Comprehensive Visit Division of Pulmonary Medicine in [place], [place] [address] [place] [phone] Morgan Peck M.D. [address] [place] [phone] 03/22/2025 11:10 AM CDT Appointment Department of Laboratory Medicine and Pathology, [facility], in [place], [place] [address] [place] [phone] Harshad Perez M.D. [address] [place] [phone] 03/22/2025 1:00 PM CDT Infusion Department of Oncology in [place], [place] [address] [place] [phone] Harshad Perez M.D. [address] [place] [phone] 03/29/2025 9:15 AM CDT Appointment Division of Pulmonary Medicine in [place], [place] [address] [place] [phone] Harshad Perez M.D. [address] [place] [phone] Discharge Disposition: Home or Self Care 03/29/2025 10:30 AM CDT Appointment Department of Laboratory Medicine and Pathology, [facility] in [place], [place] [address] [place] [phone] Harshad Perez M.D. [address] [place] [phone] 03/29/2025 11:15 AM CDT Nurse Only Division of Hematology in [place], [place] [address] [place] [phone] Harshad Perez M.D. [address] [place] [phone] 03/29/2025 1:30 PM CDT Infusion Department of Oncology in [place], [place] [address] [place] [phone] Harshad Perez M.D. [address] [place] [phone] 04/05/2025 10:10 AM CDT Appointment Department of Laboratory Medicine and Pathology, [facility] in [place], [place] [address] [place] [address] Harshad Perez M.D. [address] [place] [phone] 04/05/2025 12:00 PM CDT Infusion Department of Oncology in [place], [place] [address] [place] [address] Harshad Perez M.D. [address] [place] [phone] 04/12/2025 11:40 AM CDT Appointment Department of Laboratory Medicine and Pathology, [facility], in [place], [place] [address] [place] [phone] Harshad Perez M.D. [address] [place] [phone] 04/12/2025 1:30 PM CDT Office Visit Division of Hematology in [place], [place] [address] [place] [address] Tr Hernandez M.D. [address] [place] [phone] 04/12/2025 3:30 PM CDT Infusion Department of Oncology in [place], [place] [address] [place] [address] Harshad Perez M.D. [address] [place] [phone] 04/19/2025 10:15 AM CDT Infusion Department of Oncology in [place], [place] [address] [place] [address] Harshad Perez M.D. [address] [place] [phone] 04/26/2025 10:10 AM CDT Appointment Department of Laboratory Medicine and Pathology, [facility], in [place], [place] [address] [place] [address] Harshad Perez M.D. [address] [place] [phone] 04/26/2025 11:00 AM CDT Nurse Only Division of Hematology in [place], [place] [address] [place] [address] Harshad Perez M.D. [address] [place] [phone] 04/26/2025 12:00 PM CDT Infusion Department of Oncology in [place], [place] [address] [place] [phone] Harshad Perez M.D. [address] [place] [phone] 04/26/2025 1:30 PM CDT Appointment Division of Pulmonary Medicine in [place], [place] [address] [place] [phone] Harshad Perez M.D. [address] [place] [phone] Discharge Disposition: Home or Self Care 05/03/2025 10:15 AM CDT Infusion Department of Oncology in [place], [place] [address] [place] [phone] Harshad Perez M.D. [address] [place] [phone] 05/10/2025 9:40 AM USER EXPERIENCE MANAGER Appointment Department of Laboratory Medicine and Pathology, [facility], in [place], [place] [address] [place] [phone] Constantin López M.D. [address] [place] [phone] 05/10/2025 11:30 AM USER EXPERIENCE MANAGER Office Visit Division of Hematology in [address] [phone] Mely Hayden APRN, C.N.P., D.N.P., M.S. [address] [place] [phone] 05/10/2025 1:00 PM USER EXPERIENCE MANAGER Infusion Department of Oncology in [place], [place] [address] [place] [phone] Constantin López M.D. [address] [place] [phone] 05/17/2025 10:15 AM USER EXPERIENCE MANAGER Infusion Department of Oncology in [place], [place] [address] [place] [phone] Constantin López M.D. [address] [place] [phone] 05/24/2025 10:00 AM USER EXPERIENCE MANAGER Appointment Department of Laboratory Medicine and Pathology, [facility] in [place], [place] [address] [place] [phone] Constantin López M.D. [address] [place] [phone] 05/24/2025 10:45 AM USER EXPERIENCE MANAGER Appointment Division of Pulmonary Medicine in [place], [place] [address] [place] [phone] Harshad Perez M.D. [address] [place] [phone] Discharge Disposition: Home or Self Care 05/24/2025 12:00 PM USER EXPERIENCE MANAGER Infusion Department of Oncology in [address] [phone] Constantin López M.D. [address] [place] [phone] 05/31/2025 10:00 AM USER EXPERIENCE MANAGER Infusion Department of Oncology in [place], [place] [address] [place] [phone] Constantin López M.D. [address] [place] [phone] documented as of this encounter Procedures Procedure Name Priority Date/Time Associated Diagnosis Comments ECG Routine 01/27/2025 12:01 PM CDT Multiple Myeloma Not Having Achieved Remission (HCC) documented in this encounter Results * ECG 12 Lead (01/27/2025 12:01 PM CDT) Ventricular Rate ECG/Min 84 BPM MUSE NV Interval 148 ms MUSE QRSD Interval 74 ms MUSE QT Interval 374 ms MUSE QTC Interval 441 ms MUSE P Hamel 28 degrees MUSE R Hamel -13 degrees MUSE T Wave Hamel 30 degrees MUSE 01/27/2025 12:0 1 PM CDT 01/27/2025 12:15 PM CDT Impressions MUSE - 01/27/2025 12:15 PM CDT Normal sinus rhythm Normal ECG No previous ECGs available Reviewed by ROBYN Esquivel Narrative Procedure Note Harpal London Jr., M.D. - 01/27/2025 IMPRESSION: Normal sinus rhythm Normal ECG No previous ECGs available Reviewed by ROBYN Esquivel us Harshad Perez M.D. ECG ORDERABLES Final R esult MUSE NA documented in this encounter Visit Diagnoses Diagnosis Multiple Myeloma Not Having Achieved Remission (HCC) documented in this encounter
--- OUTSIDE RECORDS SUMMARY | 2025-01-28 08:45 | XMS_ITS | Encounter Summary ---
Author Organization [facility] Address [address] [place] [address] Care Team Providers Care Environmental Services Assistant Name Role Phone Unavailable Primary Care Provider Unavailabl e Reason for Referral * Specialty Diagnoses / Procedures Referred By Contac t Referred To Contact Diagnoses Multiple Myeloma Not Having Achieved Remission (HCC) Harshad Conti M.D. [address] [place] [address] Phone: tel:[phone] fax: [facility] Referral ID Status Reason Start Date Expiration Date Visits Re quested Visits Authorized * Outpatient (Routine) - Closed Specialty Diagnoses / Procedures Referred By Teresa t Referred To Contact Hematology Oncology Harshad Conti M.D. [address] [place] [address] Phone: tel:[phone] fax: [facility] Referral ID Status Reason Start Date Expiration Date Visits Re quested Visits Authorized [id number] Closed 01/28/2025 07/30/2026 1 1 Scheduling Instructions 10:15am Reason for Visit * Appointment Request (Routine) - Authorized Specialty Diagnoses / Procedures Referred By Contmunir t Referred To Contact Hematology Diagnoses Multiple Myeloma NOS Pain Foot Chronic Cough Referral ID Status Reason Start Date Expiration Date V isits Requested Visits Authorized [id number] Authorized 01/24/2025 04/26/2026 2 2 Encounter Details Date Type Department Care Team (Late st Contact Info) Description 01/28/2025 8:45 AM CDT Virtual Visit Division of Hematology in [place], [place] [address] [place] [address] Harshad Conti M.D. [address] [place] [address] Multiple Myeloma Not Having Achieved Remission (HCC) (Primary Dx) Social History Tobacco Use Types Packs/Day Years [...] things needed for daily living? No 01/27/2025 [facility] Utilities Answer Date Recorded In the past 12 months has e electric, gas, oil, or water company threatened to shut off services in your home? No 01/27/2025 Housing Stability Answer Date Recorded What is your living situation today? 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 - 01/28/2025 8:45 AM CDT CC: JEREMY MM, Referral source: Self: PET CT Skull to mid thigh, innumerable tiny and some large lytic and osseous lesions. I have other symptoms of multiple myeloma. Most troublesome is a sensitive and very sore left foot. My right foot has been ok but is now showing signs similar to left foot. TUSCARORA: Date of Diagnosis: pending MD evaluation and additional testing Presenting symptoms: Symptoms started near July 2024 of epistaxis, weight loss, foamy urine, hip/leg pain, LE swelling with redness and hypersensitivity. Labs: Date: January 2025 Hgb: 11.8 g/dL Plts: 364K Creatinine: 1.46 mg/dL Calcium: 8.8 mg/dL Total Protein: 9.4 Albumin: 3.3 g/dL CRP 53.5 LDH: B2M: SPEP: M-spike: 1.95 g/dL Immunofixation: IgG [place] Immunoglobulins: Ig.86 mg/dL; IgA: 33.8 mg/dL; IgM: 10.21 mg/dL Free light chains (mg/dL): kappa: ; lambda: ; [place]:Lambda Ratio: UPEP: Urine Random: total protein: 12 mg/dL; urine M-spike: 1.11 mg, Immunofixation: Monoclonal protein detected in beta-gamma region, confirmed by immunofixation. IgG kappa with probable free kappa light chains. Pathology: Bone Marrow: FISH: Imagin01/20/2025 PET/CT, Impression: 1. Diffuse intense FDG uptake in the axial and appendicular skeleton, with innumerable tiny lytic osseous lesions and several larger lytic osseous lesions including a L3 vertebral body lesion with pathologic fracture, raises concern for a metabolically active intramedullary neoplasm, likely a lymphoproliferative process such as multiple myeloma. Correlate with bone marrow tissue sampling. 2. Diffusely increased splenic FDG uptake likely represents activation of the reticuloendothelial system, with nonspecific etiology that includes an additional site of lymphoproliferative neoplasm, versus a response to systemic inflammatory process INTERVAL HISTORY Unfortunately patient was confused about his appointment this morning and thought it was later so we ended up doing a phone visit given urgency to get things going and lack of other appts today. Plan #Myeloma newly diagnosed He needs therapy tate. Trying to get it today. If we can't I have asked him to remain well hydratedover the weekend, start supportive care meds and then come for therapy next week early. We discussed about the DVRD regimen which is considered standard of care in the [place]. D-VRD stands for (generic names in parentheses) Darzalex (daratumumab)-Velcade (bortezomib)-Revlimid(lenalidomide) and Dexamethasone. We discussed common side effects (I mentioned many other are listed in the label but these are the most common). -Darzalex is given as a shot weekly for 2 months, every other week for 4 months and then monthly thereafter. Common side effects include increased risk for upper respiratory infections and possibly injection reactions (fevers, chills etc). The latter, if it occurs, it occurs the first 1-3 times thedrug is given and then does not recur, so it is not an allergic reaction. For this reason patients are usually monitored for a few hours after the first two injections. -Velcade is given weekly. Risks include infections, neuropathy (numbness/tingling/pain of fingers and toes) and less commonly diarrhea. -Revlimid is given as a pill daily, 3 weeks on followed by 1 week of a break. It can thicken onesblood and cause blood clots so aspirin or blood thinners are needed. It can cause a skin rash and diarrhea. In elderly patients especially it can increase slightly the risk of unrelated cancers but that risk is minimal and far outweighed by the myeloma benefit, since patients taking Revlimid live lo er. -Dexamethasone are pills given weekly. They cause insomnia and mood swings. I tend to decrease the dose early to 20 mg and then stop them altogether after the first 6 months of therapy or so based onstudies suggesting no additional benefit beyond this point. Supportive care needed is -full dose aspirin or blood thinner due to Revlimid -acyclovir to prevent shingles due to Darzalex and Velcade -bactrim to prevent PJP pneumonia due to Darzalex/Velcade and steroids. I have advised starting bactrim after cycle 1 in case he gets a rash so we will know if it is Revlimid or bactrim related -bone strengtheners: Zometa or Xgeva. I prefer Zometa because after induction it can be spaced out to every three months and after stopping it has no rebound bone loss effect, whereas Xgeva has. - Prilosec for acid supression Alternative options would be the IDEAL study which is iberdromide instead of revlimid. treatment can be given locally as long as monthly follow ups here. I will also set up a face to face visit next to meet him formally and discuss. #Thrombocytosis These were normal a few days ago so I suspect this is spurious result due to paraprotein interference. Will confim today and if truly high it could be due to splenic involvement. documented in this encounter Miscellaneous Notes * Addendum Note - Harshad Conti M.D. - 01/28/2025 8:45 AM CDTAddended by: HARSHAD CONTI on: 01/27/2025 02:03 PM Modules accepted: Orders * Addendum Note - Harshad Conti M.D. - 01/28/2025 8:45 AM CDTAddended by: HARSHAD CONTI on: 01/28/2025 09:21 AM Modules accepted: Orders documented in this encounter Plan of Treatment Upcoming Encounters Date Type Department Care Team (Latest Contact Info) Description 03/08/2025 8:00 AM CDT Appointment Department of Laboratory Medicine and Pathology, [facility], in [place], [place] [address] [place] [phone] Constantin López M.D. [address] [place] [phone] 03/08/2025 8:45 AM CDT Infusion Department of Oncology in [place], [place] [address] [place] [phone] Constantin López M.D. [address] [place] [phone] 03/08/2025 10:30 AM CDT Comprehensive Visit Department of Vascular Medicine in [place], [place] [address] [place] [phone] Vic Flores M.D. [address] [place] [phone] 03/11/2025 12:30 PM CDT Diagnostic Division of Pulmonary Medicine in [place], [place] [address] [place] [phone] Constantin López M.D. [address] [place] [phone] 03/11/2025 2:00 PM CDT Appointment Department of Vascular Medicine in [place], [place] [address] [place] [phone] Constantin López M.D. [address] [place] [phone] Discharge Disposition: Home or Self Care 03/15/2025 9:00 AM CDT Comprehensive Visit Department of Spine in [place], [place] [address] [place] [phone] Hebert Francis APRN, C.N.P., M.S.N. [address] [place] [phone] 03/15/2025 12:30 PM CDT Appointment Department of Laboratory Medicine and Pathology, [facility], in [place], [place] [address] [place] [phone] Harshad Conti M.D. [address] [place] [phone] 03/15/2025 2:30 PM CDT Office Visit Division of Hematology in [place], [place] [address] [place] [phone] Mely Hayden, TERRAZZO WORKER, C.N.P., D.N.P., M.S. [address] [place] [phone] 03/15/2025 4:00 PM CDT Infusion Department of Oncology in [place], [place] [address] [place] [phone] Harshad Conti M.D. [address] [place] [phone] 03/16/2025 1:30 PM CDT Comprehensive Visit Division of Pulmonary Medicine in [place], [place] [address] [place] [phone] Morgan Peck M.D. [address] [place] [phone] 03/22/2025 11:10 AM CDT Appointment Department of Laboratory Medicine and Pathology, [facility], in [place], [place] [address] [place] [phone] Harshad Conti M.D. [address] [place] [phone] 03/22/2025 1:00 PM CDT Infusion Department of Oncology in [place], [place] [address] [place] [phone] Harshad Conti M.D. [address] [place] [phone] 03/29/2025 9:15 AM CDT Appointment Division of Pulmonary Medicine in [place], [place] [address] [place] [phone] Harshad Conti M.D. [address] [place] [phone] Discharge Disposition: Home or Self Care 03/29/2025 10:30 AM CDT Appointment Department of Laboratory Medicine and Pathology, [facility] in [place], [place] [address] [place] [address] Harshad Conti M.D. [address] [place] [phone] 03/29/2025 11:15 AM CDT Nurse Only Division of Hematology in [place], [place] [address] [place] [address] Harshad Conti M.D. [address] [place] [phone] 03/29/2025 1:30 PM CDT Infusion Department of Oncology in [place], [place] [address] [place] [address] Harshad Conti M.D. [address] [place] [phone] 04/05/2025 10:10 AM CDT Appointment Department of Laboratory Medicine and Pathology, [facility] in [place], [place] [address] [place] [address] Harshad Conti M.D. [address] [place] [phone] 04/05/2025 12:00 PM CDT Infusion Department of Oncology in [place], [place] [address] [place] [phone] Harshad Conti M.D. [address] [place] [phone] 04/12/2025 11:40 AM CDT Appointment Department of Laboratory Medicine and Pathology, [facility] in [place], [place] [address] [place] [phone] Harshad Conti M.D. [address] [place] [phone] 04/12/2025 1:30 PM CDT Office Visit Division of Hematology in [place], [place] [address] [place] [phone] Tr Hernandez M.D. [address] [place] [phone] 04/12/2025 3:30 PM CDT Infusion Department of Oncology in [place], [place] [address] [place] [phone] Harshad Conti M.D. [address] [place] [phone] 04/19/2025 10:15 AM CDT Infusion Department of Oncology in [place], [place] [address] [place] [address] Harshad Conti M.D. [address] [place] [phone] 04/26/2025 10:10 AM CDT Appointment Department of Laboratory Medicine and Pathology, [facility], in [place], [place] [address] [place] [address] Harshad Conti M.D. [address] [place] [phone] 04/26/2025 11:00 AM CDT Nurse Only Division of Hematology in [place], [place] [address] [place] [phone] Harshad Conti M.D. [address] [place] [phone] 04/26/2025 12:00 PM CDT Infusion Department of Oncology in [place], [place] [address] [place] [phone] Harshad Conti M.D. [address] [place] [phone] 04/26/2025 1:30 PM CDT Appointment Division of Pulmonary Medicine in [place], [place] [address] [place] [phone] Harshad Conti M.D. [address] [place] [phone] Discharge Disposition: Home or Self Care 05/03/2025 10:15 AM CDT Infusion Department of Oncology in [address] [phone] Harshad Conti M.D. 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 [address] [place] [phone] 05/10/2025 11:30 AM SIGN PAINTER APPRENTICE Office Visit Division of Hematology in [address] [phone] Mely Hayden APRN, C.N.P., D.N.P., M.S. [address] [place] [phone] 05/10/2025 1:00 PM SIGN PAINTER APPRENTICE Infusion Department of Oncology in [address] [address] Constantin López M.D. [address] [place] [phone] 05/17/2025 10:15 AM SIGN PAINTER APPRENTICE Infusion Department of Oncology in [place], [place] [address] [place] [phone] Constantin López M.D. [address] [place] [phone] 05/24/2025 10:00 AM SIGN PAINTER APPRENTICE Appointment Department of Laboratory Medicine and Pathology, [facility] in [place], [place] [address] [place] [phone] Constantin López M.D. [address] [place] [phone] 05/24/2025 10:45 AM SIGN PAINTER APPRENTICE Appointment Division of Pulmonary Medicine in [place], [place] [address] [place] [phone] Harshad Conti M.D. [address] [place] [phone] Discharge Disposition: Home or Self Care 05/24/2025 12:00 PM SIGN PAINTER APPRENTICE Infusion Department of Oncology in [address] [phone] Constantin López M.D. [address] [place] [phone] 05/31/2025 10:00 AM SIGN PAINTER APPRENTICE Infusion Department of Oncology in [place], [place] [address] [place] [phone] Constantin López M.D. [address] [place] [phone] Scheduled Referrals Name Type Priority Associated Diagnoses Order Schedule Hematology office visit (clinic) [place]; Myeloma; General Outpatient Referral Routine Expected: 02/03/2025, Expires: 04/30/2026 Hematology - Chemo education visit (clinic) Outpatient Referral Routine Multiple Myeloma Not Having Achieved Remission (HCC) Expected: 01/28/2025, Expires: 04/30/2026 documented as of this encounter Results * (ABNORMAL) Gtkc-6-Vscznipyaeihk (Beta-2-M) (01/28/2025 11:56 AM CDT) Pathologist [facility] Gjax-4-Ohwjssz obulin, S 8.55(H) 1.21 - 2.70 mcg/mL 01/28/2025 5:49 PM CDT [facility] Blood (Blood, Venous) 01/28/2025 11:56 AM CDT 01/28/2025 4:19 PM CDT Harshad Conti M.D. LAB BLOOD ADD-ON Final Result Performing Organization Address [facility]/ZIP Co de Phone Number [facility] [address] [place], [place] [address] [place] [address] [place] [address] * LD (Lactate Dehydrogenase) (01/28/2025 11:56 AM CDT) [facility] Lactate Dehydrogenase (LD), S 179 122 - 222 U/L 01/28/2025 1:02 PM CDT [facility] Blood (Blood, Venous) 01/28/2025 11:56 AM CDT 01/28/2025 12:17 PM CDT Harshad Conti M.D. LAB BLOOD NON ADD-ON Fi nal Result Performing Organization Address [facility]/ZIP Co de Phone Number [facility] [address] [place] [address], [facility] [address] [place] [address] * (ABNORMAL) CBC with Differential and Citrated Platelet Count, Blood (01/28/2025 11:55 AM CDT) [facility] Hemoglobin 10.5(L) 13.2 - 16.6 g/dL 01/28/2025 3:08 PM CDT [facility] Hematocrit 32.4(L) 38.3 - 48.6 % 01/28/2025 3:08 PM CDT [facility] Erythrocytes 3.44(L) 4.35 - 5.65 x10(12)/L 01/28/2025 3:08 PM CDT [facility] MCV 94.2 78.2 - 97.9 fL 01/28/2025 3:08 PM CDT [facility] RBC Distrib Width 15.8(H) 11.8 - 14.5 % 01/28/2025 3:08 PM CDT [facility] Platelet Count 332(H) 135 - 317 x10(9)/L 01/28/2025 3:08 PM CDT [facility] Comment: No change in platelet count seen with citrate, no clumping observed on EDTA or Citrate. Leukocytes 5.9 3.4 - 9.6 x10(9)/L 01/28/2025 3:08 PM CDT [facility] Neutrophils 2.48 1.56 - 6.45 x10(9)/L 01/28/2025 3:08 PM CDT [facility] Lymphocytes 2.92 0.95 - 3.07 x10(9)/L 01/28/2025 3:08 PM CDT [facility] Monocytes 0.43 0.26 - 0.81 x10(9)/L 01/28/2025 3:08 PM CDT [facility] Eosinophils 0.03 0.03 - 0.48 x10(9)/L 01/28/2025 3:08 PM CDT [facility] Basophils 0.03 0.01 - 0.08 x10(9)/L 01/28/2025 3:08 PM CDT [facility] Blood (Blood, Venous) 01/28/2025 11:55 AM CDT 01/28/2025 12:15 PM CDT [facility] - 01/28/2025 3:08 PM CDT Specimen Information: Specimen ID: [id number] Specimen Type: Blood Specimen Collection Start Date: 01/28/2025 11:55 AM Specimen Received Date: 01/28/2025 12:15 PM Specimen ID: [id number] Specimen Type: Blood Specimen Collection Start Date: 01/28/2025 11:55 AM Specimen Received Date: 01/28/2025 12:15 PM Harshad Conti M.D. LAB BLOOD NON ADD-ON Fi nal Result [facility] [address] [place] [address], [facility] [address] [place] [address] documented in this encounter Visit Diagnoses Diagnosis Multiple Myeloma Not Having Achieved Remission (HCC)- Primary Multiple Myeloma Not Having Achieved Remission (HCC)- Primary Clinical Research Exam documented in this encounter Additional Health Concerns Infection Onset Date Last Indicated Resolved Time Protective Environment 01/27/2025 01/27/2025 documented as of this encounter
--- OUTSIDE RECORDS SUMMARY | 2025-01-28 10:00 | XMS_ITS | Encounter Summary ---
Author Organization [facility] Address [address] [place] [id number] Care Team Providers Care Powder Worker Tnt Name Role Phone Unavailable Primary Care Provider Unavailabl e Reason for Referral * Outpatient (Routine) - Closed Specialty Diagnoses / Procedures Referred By Teresa carvalho Referred To Contact Diagnoses Clinical Research Exam Procedures Bone Marrow Research Aspirate Add On Collection Natalie Ann M.D. [address] [place] [address] Phone: tel: fax: Referral ID Status Reason Start Date Expiration Date Visits Re quested Visits Authorized [id number] Closed 01/28/2025 04/30/2026 1 1 Encounter Details Date Type Department Care Team (Latest Contact Info) Description 01/28/2025 10:00 AM CDT Clinical Support - [facility] Division of Hematology in [place], [place] [address] [place] [phone] Katie Laureano [address] [place] [address] Clinical Research Exam (Primary Dx) Social History Tobacco Use Types [...] things needed for daily living? No 01/27/2025 [facility] Utilities Answer Date Recorded In the past 12 months has [employer] electric, gas, oil, or water company threatened to shut off services in your home? No 01/27/2025 Housing Stability Answer Date Recorded What is your living situation today? I have a [facility] place to live 01/27/2025 Sex and Gender Information Value Date Recorded Sex Assigned at Male 01/27/2025 2:34 PM CDT Legal Sex Male 6:33 AM AUDIO VISUAL DIRECTOR Gender Identity Male 01/27/2025 2:34 PM CDT Sexual Orientation Straight 01/27/2025 2: 34 PM CDT documented as of this encounter Plan of Treatment Upcoming Encounters Date Type Department Care Team (Latest Contact Info) Description 03/08/2025 8:00 AM CDT Appointment Department of Laboratory Medicine and Pathology, [facility] in [place], [place] [address] [place] [address] Constantin López M.D. [address] [place] [phone] 03/08/2025 8:45 AM CDT Infusion Department of Oncology in [place], [place] [address] [place] [address] Constantin López M.D. [address] [place] [phone] 03/08/2025 10:30 AM CDT Comprehensive Visit Department of Vascular Medicine in [place], [place] [address] [place] [phone] Vic Flores M.D. [address] [place] [phone] 03/11/2025 12:30 PM CDT Diagnostic Division of Pulmonary Medicine in [place], [place] [address] [place] [phone] Constantin López M.D. [address] [place] [phone] 03/11/2025 2:00 PM CDT Appointment Department of Vascular Medicine in [place], [place] [address] [place] [phone] Constantin López M.D. [address] [place] [phone] Discharge Disposition: Home or Self Care 03/15/2025 9:00 AM CDT Comprehensive Visit Department of Spine in [place], [place] [address] [place] [phone] Hebert Francis APRN, C.N.P., M.S.N. [address] [place] [phone] 03/15/2025 12:30 PM CDT Appointment Department of Laboratory Medicine and Pathology, [facility], in [place], [place] [address] [place] [phone] Harshad Perez M.D. [address] [place] [phone] 03/15/2025 2:30 PM CDT Office Visit Division of Hematology in [place], [place] [address] [place] [phone] Mely Hayden APRN, C.N.P., D.N.P., M.S. [address] [place] [phone] 03/15/2025 4:00 PM CDT Infusion Department of Oncology in [place], [place] [address] [place] [phone] Harshad Perez M.D. [address] [place] [phone] 03/16/2025 1:30 PM CDT Comprehensive Visit Division of Pulmonary Medicine in [place], [place] [address] [place] [phone] Morgan Peck M.D. [address] [place] [phone] 03/22/2025 11:10 AM CDT Appointment Department of Laboratory Medicine and Pathology, [facility] in [place], [place] [address] [place] [phone] Harshad Perez M.D. [address] [place] [phone] 03/22/2025 1:00 PM CDT Infusion Department of Oncology in [place], [place] [address] [place] [phone] Harshad Perez M.D. [address] [place] [phone] 03/29/2025 9:15 AM CDT Appointment Division of Pulmonary Medicine in [place], [place] [address] [place] [phone] Harshad Perez M.D. [address] [place] [phone] Discharge Disposition: Home or Self Care 03/29/2025 10:30 AM CDT Appointment Department of Laboratory Medicine and Pathology, [facility] in [place], [place] [address] [place] [phone] Harshad Perez M.D. [address] [place] [phone] 03/29/2025 11:15 AM CDT Nurse Only Division of Hematology in [place], [place] [address] [place] [phone] Harshad Perez M.D. [address] [place] [phone] 03/29/2025 1:30 PM CDT Infusion Department of Oncology in [place], [place] [address] [place] [phone] Harshad Perez M.D. [address] [place] [phone] 04/05/2025 10:10 AM CDT Appointment Department of Laboratory Medicine and Pathology, [facility] in [place], [place] [address] [place] [phone] Harshad Perez M.D. [address] [place] [phone] 04/05/2025 12:00 PM CDT Infusion Department of Oncology in [place], [place] [address] [place] [phone] Harshad Perez M.D. [address] [place] [phone] 04/12/2025 11:40 AM CDT Appointment Department of Laboratory Medicine and Pathology, [facility], in [place], [place] [address] [place] [phone] Harsahd Perez M.D. [address] [place] [phone] 04/12/2025 1:30 PM CDT Office Visit Division of Hematology in [place], [place] [address] [place] [phone] Tr Hernandez M.D. [address] [place] [phone] 04/12/2025 3:30 PM CDT Infusion Department of Oncology in [place], [place] [address] [place] [phone] Harshad Perez M.D. [address] [place] [phone] 04/19/2025 10:15 AM CDT Infusion Department of Oncology in [place], [place] [address] [place] [phone] Harshad Perez M.D. [address] [place] [phone] 04/26/2025 10:10 AM CDT Appointment Department of Laboratory Medicine and Pathology, [facility], in [place], [place] [address] [place] [phone] Harshad Perez M.D. [address] [place] [phone] 04/26/2025 11:00 AM CDT Nurse Only Division of Hematology in [place], [place] [address] [place] [phone] Harshad Perez M.D. [address] [place] [phone] 04/26/2025 12:00 PM CDT Infusion Department of Oncology in [place], [place] [address] [place] [phone] Harshad Perez M.D. [address] [place] [phone] 04/26/2025 1:30 PM CDT Appointment Division of Pulmonary Medicine in [place], [place] [address] [place] [phone] Harshad Perez M.D. [address] [place] [phone] Discharge Disposition: Home or Self Care 05/03/2025 10:15 AM CDT Infusion Department of Oncology in [place], [place] [address] [place] [phone] Harshad Perez M.D. [address] [place] [phone] 05/10/2025 9:40 AM AUDIO VISUAL DIRECTOR Appointment Department of Laboratory Medicine and Pathology, [facility] in [place], [place] [address] [place] [phone] Constantin López M.D. [address] [place] [phone] 05/10/2025 11:30 AM AUDIO VISUAL DIRECTOR Office Visit Division of Hematology in [address] [phone] Mely Hayden APRN, C.N.P., D.N.P., M.S. [address] [place] [phone] 05/10/2025 1:00 PM AUDIO VISUAL DIRECTOR Infusion Department of Oncology in [place], [place] [address] [place] [phone] Constantin López M.D. [address] [place] [phone] 05/17/2025 10:15 AM AUDIO VISUAL DIRECTOR Infusion Department of Oncology in [place], [place] [address] [place] [phone] Constantin López M.D. [address] [place] [phone] 05/24/2025 10:00 AM AUDIO VISUAL DIRECTOR Appointment Department of Laboratory Medicine and Pathology, [facility] in [place], [place] [address] [place] [phone] Constantin López M.D. [address] [place] [phone] 05/24/2025 10:45 AM AUDIO VISUAL DIRECTOR Appointment Division of Pulmonary Medicine in [place], [place] [address] [place] [phone] Harshad Perez M.D. [address] [place] [phone] Discharge Disposition: Home or Self Care 05/24/2025 12:00 PM AUDIO VISUAL DIRECTOR Infusion Department of Oncology in [place], [place] [address] [place] [phone] Constantin López M.D. [address] [place] [phone] 05/31/2025 10:00 AM AUDIO VISUAL DIRECTOR Infusion Department of Oncology in [address] [phone] Constantin López M.D. [address] [place] [phone] documented as of this encounter Results * GA NO CHARGE VISIT (01/28/2025 1:00 PM CDT) Bone Marrow Narrative Jd Hester R.N. - 01/28/2025 1:00 PM CDT Jd Hester R.N. 01/28/2025 1:27 PM Bone Marrow Research Aspirate Add On Collection Performed by: Jd Hester R.N. Authorized by: Natalie Ann M.D. POST-PROCEDURE DETAILS Procedure completed successfully: yes Complications: no apparent complications Natalie Ann M.D. PROCEDURE/MINOR SURGICAL ORDERABLES Final Result * [facility] Research, Blood (01/28/2025 11:56 AM CDT) Pathologist [facility] Number of Specimens 1 01/28/2025 11:56 AM CDT HSS Blood (Blood, Venous) 01/28/2025 11:56 AM CDT 01/28/2025 11:56 AM CDT Natalie Ann M.D. LAB RESEARCH NO RESULT R OUTING Final Result [facility] [address] [place] [address], [facility] [address] [place] [address] * [facility] [phone] Myeloma (01/28/2025 11:56 AM CDT) Research 3x6 mL ACD Collected DEFAULT 01/28/2025 11:56 AM CDT HSS Research 1x10 mL Red Collected DEFAULT 01/28/2025 11:56 AM CDT HSS Blood (Blood, Venous) 01/28/2025 11:56 AM CDT 01/28/2025 11:56 AM CDT Narrative [facility] - 01/28/2025 11:56 AM CDT Specimen Information: Specimen ID: [id number] Specimen Type: Blood Specimen Collection Start Date: 01/28/2025 11:56 AM Specimen Received Date: 01/28/2025 11:56 AM Specimen ID: [id number] Specimen Type: Blood Specimen Collection Start Date: 01/28/2025 11:56 AM Specimen Received Date: 01/28/2025 11:56 AM Specimen ID: [id number] Specimen Type: Blood Specimen Collection Start Date: 01/28/2025 11:56 AM Specimen Received Date: 01/28/2025 11:56 AM Specimen ID: [id number] Specimen Type: Blood Specimen Collection Start Date: 01/28/2025 11:56 AM Specimen Received Date: 01/28/2025 11:56 AM Specimen ID: [id number] Specimen Collection Start Date: 01/28/2025 11:43 AM Specimen Received Date: 01/28/2025 11:43 AM Specimen ID: [id number] Specimen Collection Start Date: 01/28/2025 11:43 AM Specimen Received Date: 01/28/2025 11:43 AM us Natalie Ann M.D. LAB BLOOD ADD-ON Final R esult [facility] [address] [place] [address], [facility] [address] [place] [address] documented in this encounter Visit Diagnoses Diagnosis Clinical Research Exam- Primary Multiple Myeloma Not Having Achieved Remission (HCC) Clinical Research Exam Multiple Myeloma Not Having Achieved Remission (HCC)- Primary Clinical Research Exam documented in this encounter Additional Health Concerns Infection Onset Date Last Indicated Resolved Time Protective Environment 01/27/2025 01/27/2025 documented as of this encounter
--- OUTSIDE RECORDS SUMMARY | 2025-01-28 10:45 | XMS_ITS | Encounter Summary ---
Author Organization [facility] Address [address] [place] [id number] Care Team Providers Care Microfilmer Name Role Phone Unavailable Primary Care Provider Unavailabl e Encounter Details Date Type Department Care Team (Late Contact Info) Description 01/28/2025 10:45 AM CDT Education Division of Hematology in [place], [place] [address] [place] [phone] Harshad Perez M.D. [address] [place] [phone] Venita Thomas, RLevyNLevy [address] [place] [phone] Multiple Myeloma Not Having Achieved Remission (HCC) [...] things needed for daily living? No 01/27/2025 [facility] Utilities Answer Date Recorded In the past 12 months has th e [employer], gas, oil, or water [employer] threatened to shut off services in your home? No 01/27/2025 Housing Stability Answer Date Recorded What is your living situation today? I have a [facility] place to live 01/27/2025 Sex and Gender Information Value Date Recorded Sex Assigned at Male 01/27/2025 2:34 PM CDT Legal Sex Male 6:33 AM CHILDREN'S SERVICE SUPERVISOR Gender Identity Male 01/27/2025 2:34 PM CDT Sexual Orientation Straight 01/27/2025 2: 34 PM CDT documented as of this encounter Last Filed Vital Signs Vital Sign Reading Time Taken Comments Blood Pressure 100/64 01/28/2025 10:22 AM CDT Pulse 88 01/28/2025 10:22 AM CDT Temperature 36.9 C (98.4 F) 01/28/2025 10:22 AM CDT Respiratory Rate - - Oxygen Saturation - - Inhaled Oxygen Concentration - - Weight 74.7 kg (164 lb 10.9 oz) 025 10:22 AM CDT Height 173.2 cm (5' 8.19) 01/28/2025 1 0:22 AM CDT Body Mass Index 24.9 01/28/2025 10:22 AM CDT documented in this encounter Progress Notes * Venita Thomas, RLevyN. - 01/28/2025 10:45 AM CDT Provider Name Dr. Perez has ordered a nurse visit for a pre-treatment assessment and education as part of the treatment protocol. Joey Laird presents today for a pre-chemotherapy assessment and education. Diagnosis:Multiple Myeloma C90.00 Therapy plan: Treatment medications: Daratumumab, Velcade, Revlimid, Dex Start date: .d HISTORY: Joey Laird reports the following symptoms at baseline: Left foot pain with numbnessand tingling LEARNING NEEDS ASSESSMENT: Ready to learn, no apparent learning barriers were identified; learning preferences include listening. Explained diagnosis and treatment plan; patient/child/caregiver expressed understanding of the content. NURSING INTERVENTIONS: INSTRUCTED ON THE FOLLOWING EDUCATION TOPIC(s): Treatment schedule, potential side effects the patient may experience, but is not limited to the following: fatigue, weakness, anorexia, nausea, vomiting, diarrhea, constipation, neutropenia, increased risk for infection, increased risk for bleeding, d iscussed supportive medication, reviewed signs/symptoms to report urgently, review safe handling ofbody fluids post infusion, dietary precautions, and infection prevention. ASSESSMENT: The patient expressed understanding of the content. EDUCATION MATERIAL(s) PROVIDED: Micromedex and supplemental drug sheets specific to treatment plan,Chemotherapy and You Support for People With Cancer ([facility] [place]) [id number], Your Blood Counts During Cancer Treatment ([facility]) [id number], Temporary Change in Blood Counts [id number] and Neutropenic Precautions [id number], Hematology Contact I nformation ([facility]) LA4883-46, Multiple Myeloma ([facility]) [id number] verbalized understanding and had no futhur questions. PLAN: Proceed with chemotherapy as scheduled. Reinforce education at next visit. Encourage patient to call with any questions or side effects. TIME WITH PATIENT: 60 #1 Nurse education visit. #2 Pre-treatment Assessment Daratumumab and Hyaluronidase (Darzalex Faspro): Side Effects - Hypersensitivity reaction (preventative measures - pre- medications acetaminophen, dexamethasone, diphenhydramine; Lower risk than IV formulation), fatigue, increased risk for herpes zoster reactivation, injection site reactions and skin irritation Reviewed symptoms of an infusion reaction including shortness of breath, fever, chills, hypotension, flushing, and itching The patient will be taking acyclovir and for at least 3 months after you finish daratumumab to prevent herpes zoster reactivation Administration - Subcutaneous injection given over 3-5 minutes into the abdomen. Bortezomib (Velcade) Side Effects - diarrhea or constipation, peripheral neuropathy, thrombocytopenia, increased risk for herpes zoster reactivation, and cardiomyopathy (extremely rare). Immediately notify your healthcare team if you notice any changes in your hands or feet The patient will be taking acyclovir every day and for at least 3 months after you finish bortezomib to prevent herpes zoster reactivation. Administration - Administered as a subcutaneous injection under the skin Drug interactions - Vitamin C and green tea may decrease the efficacy of bortezomib; do not take vitamin C, multivitamins, or consume food containing vitamin C or green tea on day of treatment Lenalidomide (Revlimid) Side Effects Myelosuppression (fatigue, infection risk, bleeding risk), venous thromboembolism, diarrhea, and rash. Reviewed the sign/symptoms of a blood clot such as unilateral swelling/redness of extremity, suddenshortness of breath, problems with speech and weakness on one side of the body. The patient will be taking aspirin 325 as VTE prophylaxis. Administration/Handling Take at bedtime with or without food; do not open or chew capsules. Patient was provided with information regarding safe handling: okay to handle whole capsule and wash hands after handling; caregivers and women of childbearing potential should avoid handling. Access Can only be filled at specific specialty pharmacies that will be determined by the patients insurance. The specialty pharmacy will deliver the medication directly to their home. REMS Patient will be enrolled in the REVLIMID REMS program and will receive a survey phone calls required to receive the medication. Do not donate blood or other body fluids while on therapy and store capsules in a secure location. Patient is aware of the potential for defects and prevention of while required on therapy Dexamethasone (Decadron): Side Effects - hyperglycemia, hypertension, mood changes, insomnia, stomach upset Patients with diabetes should monitor their blood sugars more frequently the day of and day after taking steroids. Take with food to reduce risk of stomach upset . REMS Enrollment done during chemo education today Medication enrolled: Revlimid INSTRUCTION WAS PROVIDED ON THE FOLLOWING: RN provided education on [employer] REMS enrollment process. RN reviewed patient/provider agreement form with the patient Discussed risk category Adult Male (AM) Revlimid requires prior authorization, which [facility] will help obtain, and once approved, the prescription will be coordinated through an appropriate specialty pharmacy for home delivery. documented in this encounter Plan of Treatment Upcoming Encounters Date Type Department Care Team (Latest Contact Info) Description 03/08/2025 8:00 AM CDT Appointment Department of Laboratory Medicine and Pathology, [facility], in [place], [place] [address] [place] [phone] Constantin López M.D. [address] [place] [phone] 03/08/2025 8:45 AM CDT Infusion Department of Oncology in [place], [place] [address] [place] [phone] Constantin López M.D. [address] [place] [phone] 03/08/2025 10:30 AM CDT Comprehensive Visit Department of Vascular Medicine in [place], [place] [address] [place] [phone] Vic Flores M.D. [address] [place] [phone] 03/11/2025 12:30 PM CDT Diagnostic Division of Pulmonary Medicine in [place], [place] [address] [place] [phone] Constantin López M.D. [address] [place] [phone] 03/11/2025 2:00 PM CDT Appointment Department of Vascular Medicine in [place], [place] [address] [place] [phone] Constantin López M.D. [address] [place] [phone] Discharge Disposition: Home or Self Care 03/15/2025 9:00 AM CDT Comprehensive Visit Department of Spine in [place], [place] [address] [place] [phone] Hebert Francis, ANY, C.N.P., M.S.N. [address] [place] [phone] 03/15/2025 12:30 PM CDT Appointment Department of Laboratory Medicine and Pathology, [facility] in [place], [place] [address] [place] [phone] Harshad Perez M.D. [address] [place] [phone] 03/15/2025 2:30 PM CDT Office Visit Division of Hematology in [place], [place] [address] [place] [phone] Mely Hayden APRN, C.N.P., D.N.P., M.S. [address] [place] [phone] 03/15/2025 4:00 PM CDT Infusion Department of Oncology in [place], [place] [address] [place] [phone] Harshad Perez M.D. [address] [place] [phone] 03/16/2025 1:30 PM CDT Comprehensive Visit Division of Pulmonary Medicine in [place], [place] [address] [place] [phone] Morgan Peck M.D. [address] [place] [phone] 03/22/2025 11:10 AM CDT Appointment Department of Laboratory Medicine and Pathology, [facility], in [place], [place] [address] [place] [phone] Harshad Perez M.D. [address] [place] [phone] 03/22/2025 1:00 PM CDT Infusion Department of Oncology in [place], [place] [address] [place] [address] Harshad Perez M.D. [address] [place] [phone] 03/29/2025 9:15 AM CDT Appointment Division of Pulmonary Medicine in [place], [place] [address] [place] [phone] Harshad Perez M.D. [address] [place] [phone] Discharge Disposition: Home or Self Care 03/29/2025 10:30 AM CDT Appointment Department of Laboratory Medicine and Pathology, [facility] in [place], [place] [address] [place] [address] Harshad Perez M.D. [address] [place] [phone] 03/29/2025 11:15 AM CDT Nurse Only Division of Hematology in [place], [place] [address] [place] [phone] Harshad Perez M.D. [address] [place] [phone] 03/29/2025 1:30 PM CDT Infusion Department of Oncology in [place], [place] [address] [place] [phone] Harshad Perez M.D. [address] [place] [phone] 04/05/2025 10:10 AM CDT Appointment Department of Laboratory Medicine and Pathology, [facility] in [place], [place] [address] [place] [phone] Harshad Perez M.D. [address] [place] [phone] 04/05/2025 12:00 PM CDT Infusion Department of Oncology in [place], [place] [address] [place] [phone] Harshad Perez M.D. [address] [place] [phone] 04/12/2025 11:40 AM CDT Appointment Department of Laboratory Medicine and Pathology, [facility] in [place], [place] [address] [place] [phone] Harshad Perez M.D. [address] [place] [phone] 04/12/2025 1:30 PM CDT Office Visit Division of Hematology in [place], [place] [address] [place] [phone] Tr Hernandez M.D. [address] [place] [phone] 04/12/2025 3:30 PM CDT Infusion Department of Oncology in [place], [place] [address] [place] [phone] Harshad Perez M.D. [address] [place] [phone] 04/19/2025 10:15 AM CDT Infusion Department of Oncology in [place], [place] [address] [place] [phone] Harshad Perez M.D. [address] [place] [phone] 04/26/2025 10:10 AM CDT Appointment Department of Laboratory Medicine and Pathology, [facility] in [place], [place] [address] [place] [phone] Harshad Perez M.D. [address] [place] [phone] 04/26/2025 11:00 AM CDT Nurse Only Division of Hematology in [place], [place] [address] [place] [phone] Harshad Perez M.D. [address] [place] [phone] 04/26/2025 12:00 PM CDT Infusion Department of Oncology in [place], [place] [address] [place] [phone] Harshad Perez M.D. [address] [place] [phone] 04/26/2025 1:30 PM CDT Appointment Division of Pulmonary Medicine in [place], [place] [address] [place] [phone] Harshad Perez M.D. [address] [place] [phone] Discharge Disposition: Home or Self Care 05/03/2025 10:15 AM CDT Infusion Department of Oncology in [place], [place] [address] [place] [phone] Harshad Perez M.D. [address] [place] [phone] 05/10/2025 9:40 AM CHILDREN'S SERVICE SUPERVISOR Appointment Department of Laboratory Medicine and Pathology, [facility], in [place], [place] [address] [place] [phone] Constantin López M.D. [address] [place] [phone] 05/10/2025 11:30 AM CHILDREN'S SERVICE SUPERVISOR Office Visit Division of Hematology in [place], [place] [address] [place] [phone] Mely Hayden, ANY, C.N.P., D.N.P., M.S. [address] [place] [phone] 05/10/2025 1:00 PM CHILDREN'S SERVICE SUPERVISOR Infusion Department of Oncology in [place], [place] [address] [place] [phone] Constantin López M.D. [address] [place] [phone] 05/17/2025 10:15 AM CHILDREN'S SERVICE SUPERVISOR Infusion Department of Oncology in [place], [place] [address] [place] [phone] Constantin López M.D. [address] [place] [phone] 05/24/2025 10:00 AM CHILDREN'S SERVICE SUPERVISOR Appointment Department of Laboratory Medicine and Pathology, [facility] in [place], [place] [address] [place] [phone] Constantin López M.D. [address] [place] [phone] 05/24/2025 10:45 AM CHILDREN'S SERVICE SUPERVISOR Appointment Division of Pulmonary Medicine in [address] [phone] Harshad Perez M.D. [address] [place] [phone] Discharge Disposition: Home or Self Care 05/24/2025 12:00 PM CHILDREN'S SERVICE SUPERVISOR Infusion Department of Oncology in [place], [place] [address] [place] [phone] Constantin López M.D. [address] [place] [phone] 05/31/2025 10:00 AM CHILDREN'S SERVICE SUPERVISOR Infusion Department of Oncology in [place], [place] [address] [place] [phone] Constantin López M.D. [address] [place] [phone] documented as of this encounter Visit Diagnoses Diagnosis Multiple Myeloma Not Having Achieved Remission (HCC)- Primary documented in this encounter Additional Health Concerns Infection Onset Date Last Indicated Resolved Time Protective Environment 01/27/2025 01/27/2025 documented as of this encounter
--- OUTSIDE RECORDS SUMMARY | 2025-01-28 11:42 | XMS_ITS | Encounter Summary ---
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 [address] [place] [address] Phone: tel:[phone] fax: Division of Hematology in [place], [place] [address] [place] [address] Phone: tel: Referral ID Status Reason Start Date Expiration Date V isits Requested Visits Authorized [id number] Authorized 01/28/2025 04/30/2026 99 99 Encounter Details Date Type Department Care Team (Latest Contact Info) Description 01/28/2025 11:42 AM CDT - 01/28/2025 11:59 PM CDT Hospital Encounter Department of Laboratory Medicine and Pathology, [facility], in [place], [place] [address] [place] [phone] Harshad Perez M.D. [address] [place] [phone] Multiple Myeloma Not Having Achieved Remission (HCC) (Primary Dx); Clinical Research Exam Discharge Disposition: Home or Self Care Social [...] things needed for daily living? No 01/27/2025 [facility] Utilities Answer Date Recorded In the past 12 months has e electric, gas, oil, or water company threatened to shut off services in your home? No 01/27/2025 Housing Stability Answer Date Recorded What is your living situation today? [facility] 01/27/2025 Sex and Gender Information Value Date Recorded Sex Assigned at Male 01/27/2025 2:34 PM CDT Legal Sex Male 6:33 AM MEDIA COORDINATOR Gender Identity Male 01/27/2025 2:34 PM CDT Sexual Orientation Straight 01/27/2025 2: 34 PM CDT documented as of this encounter Medications at Time of Discharge aspirin [address] tabletIndication s:Multiple Myeloma Not Having Achieved Remission (HCC) Take 1 tablet (325 mg total) by mouth daily. 100 tablet 3 01/27/2025 lenalidomide (Revlimid) 10 mg capsuleIndicatio ns:Multiple Myeloma Not Having Achieved Remission (HCC) Take 1 capsule (10 mg total) by mouth daily. Take on days 1 through 21 of cycle 21 capsule 01/28/2025 ondansetron (Zofran) 8 mg tabletIndication s:Multiple Myeloma [...] 6 01/28/2025 12:05 PM CDT 01/27/2025 5 gabapentin (Neurontin) 300 mg capsule Take 1 capsule (300 mg total) by mouth at bedtime. 30 capsule 02/01/2025 8:57 AM CDT 01/28/2025 5 levoFLOXacin (Levaquin) 250 mg tabletIndication s:Multiple Myeloma Not Having Achieved Remission (HCC) Take 1 tablet (250 mg total) by mouth daily. 30 tablet 2 01/28/2025 12:05 PM CDT 01/27/2025 5 omeprazole (PriLOSEC) [address] capsule Take 1 capsule (20 mg total) by mouth daily. 90 capsule 3 01/28/2025 12:05 PM CDT 01/28/2025 5 documented as of this encounter Plan of Treatment Upcoming Encounters Date Type Department Care Team (Latest Contact Info) Description 03/08/2025 8:00 AM CDT Appointment Department of Laboratory Medicine and Pathology, [facility], in [place], [place] [address] [place] [phone] Constantin López M.D. [address] [place] [phone] 03/08/2025 8:45 AM CDT Infusion Department of Oncology in [place], [place] [address] [place] [phone] Constantin López M.D. [address] [place] [phone] 03/08/2025 10:30 AM CDT Comprehensive Visit Department of Vascular Medicine in [place], [place] [address] [place] [phone] Vic Flores M.D. [address] [place] [phone] 03/11/2025 12:30 PM CDT Diagnostic Division of Pulmonary Medicine in [place], [place] [address] [place] [phone] Constantin López M.D. [address] [place] [phone] 03/11/2025 2:00 PM CDT Appointment Department of Vascular Medicine in [place], [place] [address] [place] [phone] Constantin López M.D. [address] [place] [phone] Discharge Disposition: Home or Self Care 03/15/2025 9:00 AM CDT Comprehensive Visit Department of Spine in [place], [place] [address] [place] [address] Hebert Francis APRN, C.N.P., M.S.N. [address] [place] [phone] 03/15/2025 12:30 PM CDT Appointment Department of Laboratory Medicine and Pathology, [facility] in [place], [place] [address] [place] [address] Harshad Perez M.D. [address] [place] [phone] 03/15/2025 2:30 PM CDT Office Visit Division of Hematology in [place], [place] [address] [place] [phone] Mely Hayden APRN, Mavis.N.Killian., D.N.P., M.S. [address] [place] [phone] 03/15/2025 4:00 PM CDT Infusion Department of Oncology in [place], [place] [address] [place] [phone] Harshad Perez M.D. [address] [place] [phone] 03/16/2025 1:30 PM CDT Comprehensive Visit Division of Pulmonary Medicine in [place], [place] [address] [place] [phone] Morgan Peck M.D. [address] [place] [phone] 03/22/2025 11:10 AM CDT Appointment Department of Laboratory Medicine and Pathology, [facility], in [place], [place] [address] [place] [phone] Harshad Perez M.D. [address] [place] [phone] 03/22/2025 1:00 PM CDT Infusion Department of Oncology in [place], [place] [address] [place] [address] Harshad Perez M.D. [address] [place] [phone] 03/29/2025 9:15 AM CDT Appointment Division of Pulmonary Medicine in [place], [place] [address] [place] [address] Harshad Perez M.D. [address] [place] [phone] Discharge Disposition: Home or Self Care 03/29/2025 10:30 AM CDT Appointment Department of Laboratory Medicine and Pathology, [facility] in [place], [place] [address] [place] [address] Harshad Perez M.D. [address] [place] [phone] 03/29/2025 11:15 AM CDT Nurse Only Division of Hematology in [place], [place] [address] [place] [address] Harshad Perez M.D. [address] [place] [phone] 03/29/2025 1:30 PM CDT Infusion Department of Oncology in [place], [place] [address] [place] [address] Harshad Perez M.D. [address] [place] [phone] 04/05/2025 10:10 AM CDT Appointment Department of Laboratory Medicine and Pathology, [facility] in [place], [place] [address] [place] [address] Harshad Perez M.D. [address] [place] [phone] 04/05/2025 12:00 PM CDT Infusion Department of Oncology in [place], [place] [address] [place] [phone] Harshad Perez M.D. [address] [place] [phone] 04/12/2025 11:40 AM CDT Appointment Department of Laboratory Medicine and Pathology, [facility] in [place], [place] [address] [place] [phone] Harshad Perez M.D. [address] [place] [phone] 04/12/2025 1:30 PM CDT Office Visit Division of Hematology in [place], [place] [address] [place] [phone] Tr Hernandez M.D. [address] [place] [phone] 04/12/2025 3:30 PM CDT Infusion Department of Oncology in [place], [place] [address] [place] [address] Harshad Perez M.D. [address] [place] [phone] 04/19/2025 10:15 AM CDT Infusion Department of Oncology in [place], [place] [address] [place] [phone] Harshad Perez M.D. [address] [place] [phone] 04/26/2025 10:10 AM CDT Appointment Department of Laboratory Medicine and Pathology, [facility] in [place], [place] [address] [place] [phone] Harshad Perez M.D. [address] [place] [phone] 04/26/2025 11:00 AM CDT Nurse Only Division of Hematology in [place], [place] [address] [place] [phone] Harshad Perez M.D. [address] [place] [phone] 04/26/2025 12:00 PM CDT Infusion Department of Oncology in [place], [place] [address] [place] [address] Harshad Perez M.D. [address] [place] [phone] 04/26/2025 1:30 PM CDT Appointment Division of Pulmonary Medicine in [place], [place] [address] [place] [phone] Harshad Perez M.D. [address] [place] [phone] Discharge Disposition: Home or Self Care 05/03/2025 10:15 AM CDT Infusion Department of Oncology in [place], [place] [address] [place] [phone] Harshad Perez M.D. [address] [place] [phone] 05/10/2025 9:40 AM MEDIA COORDINATOR Appointment Department of Laboratory Medicine and Pathology, [facility], in [place], [place] [address] [place] [phone] Constantin López M.D. [address] [place] [phone] 05/10/2025 11:30 AM MEDIA COORDINATOR Office Visit Division of Hematology in [place], [place] [address] [place] [phone] Mely Hayden APRN, C.N.P., D.N.P., M.S. [address] [place] [phone] 05/10/2025 1:00 PM MEDIA COORDINATOR Infusion Department of Oncology in [place], [place] [address] [place] [phone] Constantin López M.D. [address] [place] [phone] 05/17/2025 10:15 AM MEDIA COORDINATOR Infusion Department of Oncology in [place], [place] [address] [place] [address] Constantin López M.D. [address] [place] [phone] 05/24/2025 10:00 AM MEDIA COORDINATOR Appointment Department of Laboratory Medicine and Pathology, [facility] in [place], [place] [address] [place] [phone] Constantin López M.D. [address] [place] [phone] 05/24/2025 10:45 AM MEDIA COORDINATOR Appointment Division of Pulmonary Medicine in [place], [place] [address] [place] [phone] Harshad Perez M.D. [address] [place] [phone] Discharge Disposition: Home or Self Care 05/24/2025 12:00 PM MEDIA COORDINATOR Infusion Department of Oncology in [place], [place] [address] [place] [address] Constantin López M.D. [address] [place] [address] 05/31/2025 10:00 AM MEDIA COORDINATOR Infusion Department of Oncology in [place], [place] [address] [place] [address] Constantin López M.D. [address] [place] [phone] documented as of this encounter Procedures Procedure Name Priority Date/Time Associated Diagnosis Comments KATIE GARCIA MYELOMA STUDY Routine 01/28/2025 11:56 AM CDT Clinical Research Exam MISC RESEARCH ORDER, B Routine 11:56 AM CDT Clinical Research Exam SPECIAL RED CELL AG TYPING, B Routine 01/28/2025 11:56 AM CDT TYPE AND SCREEN Routine 01/28/2025 11:56 AM CDT Multiple Myeloma Not Having Achieved Remission (HCC) LACTATE DEHYDROGENASE (LD), S Routine 01/28/2025 11:56 AM CDT Multiple Myeloma Not Having Achieved Remission (HCC) CREATININE WITH EGFR, S/P Routine 01/28/2025 11:56 AM CDT Multiple Myeloma Not Having Achieved Remission (HCC) CALCIUM, TOT, S/P Routine 01/28/2025 11: 56 AM CDT Multiple Myeloma Not Having Achieved Remission (HCC) [id number] (BETA-2-M), S Routine 01/28/2025 11:56 AM CDT Multiple Myeloma Not Having Achieved Remission (HCC) CBC W DIFF AND CITRATED PLTC, B Routine 01/28/2025 11:55 AM CDT Multiple Myeloma Not Having Achieved Remission (HCC) documented in this encounter Results * Special Red Cell Antigen Typing (01/28/2025 11:56 AM CDT) Special Red Cell Antigen * 01/28/2025 12:43 PM CDT DTL Comment:K- Blood 01/28/2025 11:5 6 AM CDT 01/28/2025 12:24 PM CDT Hasrhad Perez M.D. LAB BLOOD BANK TEST ORD ERABLES Final Result [facility] 200 [place] [address], [facility] 200 [place] [address] * [facility] [place], Blood (01/28/2025 11:56 AM CDT) Pathologist [facility] Number of Specimens 1 01/28/2025 11:56 AM CDT HSS Blood (Blood, Venous) 01/28/2025 11:56 AM CDT 01/28/2025 11:56 AM CDT us Natalie Ann M.D. LAB RESEARCH NO RESULT R OUTING Final Result Performing Organization Address City/[facility]/ZIP Co de Phone Number [facility] 200 [place] [address], [facility] HSS [facility] 200 [place] [address] * [facility] [phone] Ahmann Myeloma (01/28/2025 11:56 AM CDT) Research 3x6 mL ACD Collected DEFAULT 01/28/2025 11:56 AM CDT HSS Research 1x10 mL Red Collected DEFAULT 01/28/2025 11:56 AM CDT HSS Blood (Blood, Venous) 01/28/2025 11:56 AM CDT 01/28/2025 11:56 AM CDT Narrative [facility] - 01/28/2025 11:56 AM CDT Specimen Information: Specimen ID: [id number] Specimen Type: Blood Specimen Collection Start Date: 01/28/2025 11:56 AM Specimen Received Date: 01/28/2025 11:56 AM Specimen ID: [id number] Specimen Type: Blood Specimen Collection Start Date: 01/28/2025 11:56 AM Specimen Received Date: 01/28/2025 11:56 AM Specimen ID: [id number] Specimen Type: Blood Specimen Collection Start Date: 01/28/2025 11:56 AM Specimen Received Date: 01/28/2025 11:56 AM Specimen ID: [id number] Specimen Type: Blood Specimen Collection Start Date: 01/28/2025 11:56 AM Specimen Received Date: 01/28/2025 11:56 AM Specimen ID: [id number] Specimen Collection Start Date: 01/28/2025 11:43 AM Specimen Received Date: 01/28/2025 11:43 AM Specimen ID: [id number] Specimen Collection Start Date: 01/28/2025 11:43 AM Specimen Received Date: 01/28/2025 11:43 AM us Natalie Ann M.D. LAB BLOOD ADD-ON Final R esult Performing Organization Address City/[facility]/ZIP Co de Phone Number [facility] [address] [place] [address] * Calcium, Total (01/28/2025 11:56 AM CDT) Calcium, Total, S 9.0 8.8 - 10.2 mg/dL 01/28/2025 1:02 PM CDT DTL Blood (Blood, Venous) 01/28/2025 11:56 AM CDT 01/28/2025 12:17 PM CDT Harshad Perez M.D. LAB BLOOD ADD-ON Final Result Performing Organization Address City/[facility]/ZIP Co de Phone Number [facility] [address] D[place] [address] [place] [address] * (ABNORMAL) Creatinine with Estimated GFR (01/28/2025 11:56 AM CDT) Creatinine 1.39(H) 0.74 - 1.35 mg/dL 01/28/2025 1:02 PM CDT DTL Estimated GFR (eGFR) 57(L) >=60 mL/min/BSA 01/28/2025 1:02 PM CDT DTL Comment: Estimated GFR calculated using the 2020 CKD_EPI creatinine equation. Blood (Blood, Venous) 01/28/2025 11:56 AM CDT 01/28/2025 12:17 PM CDT us Harshad Perez M.D. LAB BLOOD ADD-ON Final Result Performing Organization Address City/[facility]/ZIP Co de Phone Number [facility] 200 [place], [place] [id number] [place] [address] DTL [facility] 200 [place] [address] * Type and Screen (with Reflex Antibody ID) (01/28/2025 11:56 AM CDT) ABORh O Pos Not applicable 01/28/2025 12:58 PM CDT ETRM Antibody Screen Negative Negative 01/28/2025 1:09 PM CDT ETRM Type & Screen Expiration 01/31/2025 23:59 01/28/2025 12:58 PM CDT ETRM Testing Location [place] DEFAULT 01/28/2025 12:28 PM CDT ETR[facility] Blood (Blood, Venous) 01/28/2025 11:56 AM CDT 01/28/2025 12:28 PM CDT us Harshad Perez M.D. LAB BLOOD BANK TEST ORD ERABLES Final Result Performing Organization Address City/[facility]/ZIP Co de Phone Number [facility] [address] [place] [address], [facility] [place] [address] * (ABNORMAL) Lhhs-5-Hvjqkpnnkzgsf (Beta-2-M) (01/28/2025 11:56 AM CDT) [facility] Lqyv-4-Rmfckiy obulin, S 8.55(H) 1.21 - 2.70 mcg/mL 01/28/2025 5:49 PM CDT [facility] Blood (Blood, Venous) 01/28/2025 11:56 AM CDT 01/28/2025 4:19 PM CDT Harshad Perez M.D. LAB BLOOD ADD-ON Final Result [facility] [address] [place] [address] [facility] [address] [place] [address] * LD (Lactate Dehydrogenase) (01/28/2025 11:56 AM CDT) [facility] Lactate Dehydrogenase (LD), S 179 122 - 222 U/L 01/28/2025 1:02 PM CDT DT Blood (Blood, Venous) 01/28/2025 11:56 AM CDT 01/28/2025 12:17 PM CDT us Harshad Perez M.D. LAB BLOOD NON ADD-ON Fi nal Result [facility] [address] [place] [address], [facility] [address] [place] [address] * (ABNORMAL) CBC with Differential and Citrated Platelet Count, Blood (01/28/2025 11:55 AM CDT) [facility] Hemoglobin 10.5(L) 13.2 - 16.6 g/dL 01/28/2025 [...] 11:55 AM CDT 01/28/2025 12:15 PM CDT Narrative [facility] - 01/28/2025 3:08 PM CDT Specimen Information: Specimen ID: [id number] Specimen Type: Blood Specimen Collection Start Date: 01/28/2025 11:55 AM Specimen Received Date: 01/28/2025 12:15 PM Specimen ID: [id number] Specimen Type: Blood Specimen Collection Start Date: 01/28/2025 11:55 AM Specimen Received Date: 01/28/2025 12:15 PM Harshad Perez M.D. LAB BLOOD NON ADD-ON Fi nal Result [facility] [address] [place] [address], [facility] [address] [place] [address] documented in this encounter Visit Diagnoses Diagnosis Multiple Myeloma Not Having Achieved Remission (HCC)- Primary Clinical Research Exam documented in this encounter Additional Health Concerns Infection Onset Date Last Indicated Resolved Time Protective Environment 01/27/2025 01/27/2025 documented as of this encounter
--- OUTSIDE RECORDS SUMMARY | 2025-01-28 13:00 | XMS_ITS | Encounter Summary ---
Author Organization [facility] Address [address] [place] [address] Care Team Providers Care Liquid Sugar Fortifier Name Role Phone Unavailable Primary Care Provider Unavailabl e Reason for Visit * Outpatient (Routine) - Closed Specialty Diagnoses / Procedures Referred By Teresa carvalho Referred To Contact Diagnoses Multiple Myeloma Not Having Achieved Remission (HCC) Procedures Biopsy Bone Marrow, Unsedated [place] DX BONE MARROW BX & ASPIR Harshad Perez M.D. 200 [place] [address] Phone: tel: fax: [facility] Referral ID Status Reason Start Date Expiration Date Visits Re quested Visits Authorized [id number] Closed 01/27/2025 04/29/2026 1 1 Encounter Details Date Type Department Care Team (Latest Contact Info) Description 01/28/2025 1:00 PM CDT Procedure visit Department of Infusion Therapy in [place], [place] 200 [place] [phone] Harshad Perez M.D. 200 [place] [address] Jd Hester R.N. [address] [place] [phone] Multiple Myeloma Not Having Achieved Remission (HCC); Clinical Research Exam Social History Tobacco Use Types Packs/Day Years [...] money to buy more. Never true 01/28/20 Within the past 12 months, t he [...] things needed for daily living? No 01/27/2025 [facility] Utilities Answer Date Recorded In the past 12 months has [employer] electric, gas, oil, or water [email or web address] threatened to shut off services in your home? No 01/27/2025 Housing Stability Answer Date Recorded What is your living situation today? [facility] 01/27/2025 Sex and Gender Information Value Date Recorded Sex Assigned at Male 01/27/2025 2:34 PM CDT Legal Sex Male 6:33 AM WIC SITE COORDINATOR Gender Identity Male 01/27/2025 2:34 PM CDT Sexual Orientation Straight 01/27/2025 2: 34 PM CDT documented as of this encounter Procedure Notes * Jd Hester R.N. - 01/28/2025 1:00 PM CDTAssociated Order(s): Biopsy Bone Marrow, Unsedated; Bone Marrow Research Aspirate Add On Collection Pre-Procedure Diagnose(s): Multiple Myeloma Not Having Achieved Remission (HCC); Clinical Research Exam Post-Procedure Diagnose(s): Multiple Myeloma Not Having Achieved Remission (HCC); Clinical ResearchExam Biopsy Bone Marrow, Unsedated Performed by: Jd Hester R.N. Authorized by: Harshad Perez M.D. Care team members present 1. Jd Hester R.N. 2. Jose Alberto Trupti L PROCEDURE DETAILS Procedure: Bone Marrow biopsy and Bone Marrow aspiration Bone marrow biopsy Laterality: Left Location of biopsy: Posterior iliac crest Patient position: Side lying Type of Needle: Manual bone marrow biopsy needle Findings: Slides obtained, aspirate obtained with spicules noted, redirect for research and redirected for core biopsy Bone marrow aspiration Aspirate volume (mL): 28 CONSENT Consent obtained: written (Risks, benefits and alternatives were discussed and a written Informed Consent was obtained. Please see Informed Consent form for further details.) [employer] All relevant documentation and testing were reviewed and available. All required blood products, implants, devices and or special equipment were made available as applicable. Pre-procedure verification was conducted and the correct site was marked if required. A fire risk and smoke assessment were done as applicable. The procedural time-out to verify correct patient, correct side/site, and procedure was conducted prior to performing the procedure and confirmed in a procedural pause. PRE-PROCEDURE DETAILS Appropriate hand hygiene, gown, cap, mask, protective eyewear, sterile gloves, skin preparation, sterile drape, and strict aseptic technique were utilized as applicable for the procedure.: yes Site preparation: chlorhexidine SEDATION / ANESTHESIA Anesthesia method: local infiltration Local infiltrate type: lidocaine POST-PROCEDURE DETAILS Procedure completed successfully: yes Complications: no apparent complications Post-procedure instructions: Post-procedure activity instructions provided COMMENTS Lidocaine 1% 200 mg. Two attempts/biopsy. Bone Marrow Research Aspirate Add On Collection Performed by: Jd Hester R.N. Authorized by: Natalie Ann M.D. POST-PROCEDURE DETAILS Procedure completed successfully: yes Complications: no apparent complications documented in this encounter Plan of Treatment Upcoming Encounters Date Type Department Care Team (Latest Contact Info) Description 03/08/2025 8:00 AM CDT Appointment Department of Laboratory Medicine and Pathology, [facility] in [place], [place] [address] [place] [phone] Constantin López M.D. [address] [place] [address] 03/08/2025 8:45 AM CDT Infusion Department of Oncology in [place], [place] [address] [place] [address] Constantin López M.D. [address] [place] [phone] 03/08/2025 10:30 AM CDT Comprehensive Visit Department of Vascular Medicine in [place], [place] [address] [place] [phone] Vic Flores M.D. [address] [place] [phone] 03/11/2025 12:30 PM CDT Diagnostic Division of Pulmonary Medicine in [place], [place] [address] [place] [phone] Constantin López M.D. [address] [place] [phone] 03/11/2025 2:00 PM CDT Appointment Department of Vascular Medicine in [place], [place] [address] [place] [phone] Constantin López M.D. [address] [place] [phone] Discharge Disposition: Home or Self Care 03/15/2025 9:00 AM CDT Comprehensive Visit Department of Spine in [place], [place] [address] [place] [phone] Hebert Francis APRN, C.N.P., M.S.N. [address] [place] [phone] 03/15/2025 12:30 PM CDT Appointment Department of Laboratory Medicine and Pathology, [facility] in [place], [place] [address] [place] [phone] Harshad Perez M.D. [address] [place] [phone] 03/15/2025 2:30 PM CDT Office Visit Division of Hematology in [place], [place] [address] [place] [phone] Mely Hayden, ANY, C.N.P., D.N.P., M.S. [address] [place] [phone] 03/15/2025 4:00 PM CDT Infusion Department of Oncology in [place], [place] [address] [place] [phone] Harshad Perez M.D. [address] [place] [phone] 03/16/2025 1:30 PM CDT Comprehensive Visit Division of Pulmonary Medicine in [place], [place] [address] [place] [phone] Morgan Peck M.D. [address] [place] [phone] 03/22/2025 11:10 AM CDT Appointment Department of Laboratory Medicine and Pathology, [facility] in [place], [place] [address] [place] [phone] Harshad Perez M.D. [address] [place] [phone] 03/22/2025 1:00 PM CDT Infusion Department of Oncology in [place], [place] [address] [place] [phone] Harshad Perez M.D. [address] [place] [phone] 03/29/2025 9:15 AM CDT Appointment Division of Pulmonary Medicine in [place], [place] [address] [place] [address] Harshad Perez M.D. [address] [place] [phone] Discharge Disposition: Home or Self Care 03/29/2025 10:30 AM CDT Appointment Department of Laboratory Medicine and Pathology, [facility] in [place], [place] [address] [place] [address] Harshad Perez M.D. [address] [place] [phone] 03/29/2025 11:15 AM CDT Nurse Only Division of Hematology in [place], [place] [address] [place] [address] Harshad Perez M.D. [address] [place] [phone] 03/29/2025 1:30 PM CDT Infusion Department of Oncology in [place], [place] [address] [place] [address] Harshad Perez M.D. [address] [place] [phone] 04/05/2025 10:10 AM CDT Appointment Department of Laboratory Medicine and Pathology, [facility], in [place], [place] [address] [place] [address] Harshad Perez M.D. [address] [place] [phone] 04/05/2025 12:00 PM CDT Infusion Department of Oncology in [place], [place] [address] [place] [address] Harshad Perez M.D. [address] [place] [address] 04/12/2025 11:40 AM CDT Appointment Department of Laboratory Medicine and Pathology, [facility] in [place], [place] [address] [place] [address] Harshad Perez M.D. [address] [place] [phone] 04/12/2025 1:30 PM CDT Office Visit Division of Hematology in [place], [place] [address] [place] [address] Tr Hernandez M.D. [address] [place] [phone] 04/12/2025 3:30 PM CDT Infusion Department of Oncology in [place], [place] [address] [place] [address] Harshad Perez M.D. [address] [place] [phone] 04/19/2025 10:15 AM CDT Infusion Department of Oncology in [place], [place] [address] [place] [address] Harshad Perez M.D. [address] [place] [phone] 04/26/2025 10:10 AM CDT Appointment Department of Laboratory Medicine and Pathology, [facility], in [place], [place] [address] [place] [address] Harshad Perez M.D. [address] [place] [phone] 04/26/2025 11:00 AM CDT Nurse Only Division of Hematology in [place], [place] [address] [place] [phone] Harshad Perez M.D. [address] [place] [phone] 04/26/2025 12:00 PM CDT Infusion Department of Oncology in [place], [place] [address] [place] [phone] Harshad Perez M.D. [address] [place] [phone] 04/26/2025 1:30 PM CDT Appointment Division of Pulmonary Medicine in [place], [place] [address] [place] [phone] Harshad Perez M.D. [address] [place] [phone] Discharge Disposition: Home or Self Care 05/03/2025 10:15 AM CDT Infusion Department of Oncology in [place], [place] [address] [place] [phone] Harshad Perez M.D. [address] [place] [phone] 05/10/2025 9:40 AM WIC SITE COORDINATOR Appointment Department of Laboratory Medicine and Pathology, [facility] in [place], [place] [address] [place] [phone] Constantin López M.D. [address] [place] [phone] 05/10/2025 11:30 AM WIC SITE COORDINATOR Office Visit Division of Hematology in [address] [phone] Mely Hayden, ANY, C.N.P., D.N.P., M.S. [address] [place] [phone] 05/10/2025 1:00 PM WIC SITE COORDINATOR Infusion Department of Oncology in [place], [place] [address] [place] [phone] Constantin López M.D. [address] [place] [phone] 05/17/2025 10:15 AM WIC SITE COORDINATOR Infusion Department of Oncology in [place], [place] [address] [place] [phone] Constantin López M.D. [address] [place] [phone] 05/24/2025 10:00 AM WIC SITE COORDINATOR Appointment Department of Laboratory Medicine and Pathology, [facility] in [place], [place] [address] [place] [phone] Constantin López M.D. [address] [place] [phone] 05/24/2025 10:45 AM WIC SITE COORDINATOR Appointment Division of Pulmonary Medicine in [address] [phone] Harshad Perez M.D. [address] [place] [phone] Discharge Disposition: Home or Self Care 05/24/2025 12:00 PM WIC SITE COORDINATOR Infusion Department of Oncology in [place], [place] [address] [place] [phone] Constantin López M.D. [address] [place] [phone] 05/31/2025 10:00 AM WIC SITE COORDINATOR Infusion Department of Oncology in [address] [phone] Constantin López M.D. [address] [place] [phone] documented as of this encounter Procedures Procedure Name Priority Date/Time Associated Diagnosis Comments MYELOMA STRATIFICATION AND RISK-ADAPTED THERAPY WITH REFLEX TO MINIMAL RESIDUAL DISEASE, BONE MARROW Routine 01/28/2025 1:25 PM CDT MPCDS PRE-ANALYSIS CELL SORTING, BM Routine 01/28/2025 1:25 PM CDT MSMART EVAL, PCPD, FISH Routine 01/29/20 1:25 PM CDT DNA/RNA EXTRACT AND HOLD, B Routine 01/28/2025 1:04 PM CDT BONE MARROW RESEARCH ASPIRATE ADD ON COLLECTION Routine 01/28/2025 1:00 PM CDT Clinical Research Exam [place] DX BONE MARROW BX & ASPIR Routine 01/28/2025 1:00 PM CDT Multiple Myeloma Not Having Achieved Remission (HCC) HEMATOPATHOLOGY Routine 01/28/2025 12:00 AM CDT documented in this encounter Results * mSMART, Plasma Cell Proliferative Disorder, FISH (01/28/2025 1:25 PM CDT) mSMART Result Summary Standard-Risk 02/07/2025 3:18 PM CDT DTL mSMART Evaluation Based on the mSMART algorithm, this patient is in the STANDARD RISK category. 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 The [facility] Stratification for Myeloma and Risk Adapted Therapy (mSMART 3.0) algorithm classifies patients into standard or high risk categories based on the results of 2 assays. The high risk group includes patients with any of the following defined by FISH: t(14;20), t(14;16), t(4;14),1q duplication/amplif ication or 17p deletion (TP53 deletion) or patients with a Monotypic Plasma Cells S-phase (MSMRT) result of > or = 2.0%. The standard risk group includes patients with all remaining results, including: Monotypic Plasma Cells S-phase (MSMRT) <2.0%, Monotypic Plasma Cells DNA Ploidy (MSMRT) result was Hyperdiploid and FISH abnormalities including hyperdiploidy (multiple trisomies), t(11;14), or t(6;14). This classification is best used for newly diagnosed multiple myeloma. The interpretation may not be appropriate in monoclonal gammopathy of undetermined significance (MGUS), amyloidosis, or smoldering myeloma (mSMART 3.0, https://www.msmart .org/mm-treatment- guidelines.html). Note: Due to the application of a new classification criteria (mSMART 3.0, www.msmart.org/mm- treatment-guidelin es.html), any follow up testing on samples previously positive for either a t(4;14), 1q duplication/amplif ication or monotypic plasma cell S-phase > or = 2% evaluated using the mSMART 2.0 algorithm will now be classified as HIGH RISK using the updated mSMART 3.0 algorithm. This adjustment in risk is due to a new classification criteria and does not imply disease progression. 02/07/2025 3:18 PM CDT DTL Disclaimer Applicable to Analyte Specific Reagent (ASR) and Laboratory Developed Tests (LDT). This test was developed and its performance characteristics determined by [facility] in a manner consistent with CLIA requirements. It has not been cleared or approved by the U.S. Food and Drug Administration. This FISH test does not rule out other chromosome abnormalities. 02/07/2025 3:18 PM CDT DTL Released By Katina Bullock D.O. 02/07/2025 3:18 PM CDT DTL Result Table ----- Abnormality Name Result # Abn Total Cells 8q24.1(MYC sep) Abnormal 45 50 -17p13.1(TP53x1,D 17Z1x2) Normal 1 50 -17(TP53,D17Z1)x1 Normal 0 50 +1q22(TP73x2,1q22 x3) Normal 0 50 14q32(IGH sep) Normal 0 50 ----- 02/07/2025 3:18 PM CDT DTL Result nuc jonathan(MYCx2)(5'MYC sep 3'MYCx1) 02/07/2025 3:18 PM CDT DTL Reason for Referral Plasma cell proliferative disorder (PCPD) 02/07/2025 3:18 PM CDT DTL Specimen Bone Marrow 02/07/2025 3:18 PM CDT DTL Method Locus and probes [Strategy;#Nuclei; Vendor] ----- 1p36.3(TP73),1q22( 1q22) [COPY#;50;LDT] 8q24(5'MYC,3'MYC) [BAP;50;AM] 14q32(3'IGH,5'IGH) [BAP;50;LDT] 17p13(TP53),17CEN( D17Z1) [COPY#;50;AM] Probe strategies include: BAP=break-apart probe; COPY#=region gain and loss. Scoring Method: Manual Probe vendors include: LDT = [facility] Developed AM = [employer] ([place], [place]) 02/07/2025 3:18 PM CDT DTL Interpretation The result is abnormal and indicates a hyperdiploid plasma cell clone based on DNA ploidy results (reported separately). 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 In plasma cell myeloma, hyperdiploidy represents a standard risk cytogenetic abnormality (Chandrakant S., et al., Nature Reviews Clinical Oncology 15:409-421, 2018). In smoldering myeloma and monoclonal gammopathy of undetermined significance (MGUS), hyperdiploidy represents an intermediate risk cytogenetic abnormality (Lennox, et al., Blood 125:1238-0322, 2015; Joe, et al., Leukemia 32:7108-1971, 2018). In amyloidosis, the prognostic significance is less well defined. In plasma cell myeloma and smoldering myeloma, a MYC rearrangement has been associated with a significant risk of disease progression (Misund, et al. ,Leukemia 34:322-326, 2019 and Neha, et al., Clin Cancer Res 15:2201-8099, 2020). The overall risk assessment should be done in the context of other risk factors. This test was ordered in the context of a [facility] pathology consultation/case (#[id number]), and this result should be interpreted within the context of the pathology consultation/repor t. 02/07/2025 3:18 PM CDT DTL Bone Marrow 01/28/2025 1:25 PM CDT 01/28/2025 9:36 PM CDT Harshad Perez M.D. LAB GENETIC TESTING Fin al Result [facility] [address] [place] [address], [facility] DTL 200 [facility] [address] [place] [address] * mSMART Plasma Cell Proliferative Disorder Pre-Analysis Cell Sorting (01/28/2025 1:25 PM CDT) Pathologist [facility] Pre-Analysis Cell Sort Performed 01/29/2025 6:24 PM CDT DTL Comment: ----ADDITIONAL INFORMATION---- Flow cytometric cell selection was performed with antibodies to the following antigens: CD19, CD38, CD45, CD56, CD138, and CD319. Specimen enrichment for certain cell types is necessary, in order to enhance the sensitivity of genetic/molecular abnormalities detection in the cell population of interest, and to avoid unwanted contamination from other cell types. Flow cytometric cell sorting is the most direct and robust method of obtaining a pure population for subsequent genetic/molecular analysis, through assessment of a characteristic combination of cell surface antigens. This test was developed and its performance characteristics determined by [facility] in a manner consistent with CLIA requirements. This test has not been cleared or approved by the U.S. Food and Drug Administration. Bone Marrow 01/28/2025 1:25 PM CDT 01/28/2025 9:36 PM CDT us Harshad Perez M.D. LAB GENETIC TESTING Fin al Result [facility] [address] [place] [address], [facility] DTL [address] [place] [address] * Myeloma Stratification and Risk-Adapted Therapy with Reflex to Minimal Residual Disease, Bone Marrow (01/28/2025 1:25 PM CDT) Monotypic Plasma Cells: Monotypic kappa plasma cells present. None detected. 01/31/2025 6:00 PM CDT DTL Monotypic PC per Total Events 61.81 % 01/31/2025 6:00 PM CDT DTL Monotypic Plasma Cells S-phase 0.8 % 01/31/2025 6:00 PM CDT DTL Monotypic Plasma Cells DNA Index 1.26 0.95 - 1.05 01/31/2025 6:00 PM CDT DTL Monotypic Plasma Cells DNA Ploidy Hyperdiploid Diploid 01/31/2025 6:00 PM CDT DTL Polytypic PC per Total Events <0.1 % 01/31/2025 6:00 PM CDT DTL Polytypic PC per All Plasma Cells <5.0 % 01/31/2025 6:00 PM CDT DTL Final Diagnosis Bone marrow, flow cytometric immunophenotypin . Plasma cells express: monotypic kappa cytoplasmic immunoglobulin light chains, CD19 (partial), CD38 and CD138. They do not express: CD45. Comment: If the S-phase is >=2%, it implies a less favorable prognosis in patients with multiple myeloma. It implies high-risk by mSMART stratification, in the absence of cytogenetic abnormalities. Correlation with plasma cell FISH results is recommended. For further details please see msmart.org. Plasma cells, (monoclonal/mono typic and polyclonal/polyt ypic) are detected by immunoglobulin light chain restriction, surface immunophenotype, and DNA content. If present, the light chain expressed by the monotypic plasma cells is indicated. The percentage of clonal plasma cells estimated by flow cytometry is affected by specimen processing and antigen loss with specimen aging. Manual differential counting remains the accepted standard for determining the bone marrow plasma cell percentage. The percentage of monotypic plasma cells in S-phase of the cell cycle is determined by quantitative DNA analysis. The DNA index is a calculated value. The presence of more than one value indicates the presence of cell populations with differing DNA contents within the monotypic plasma cells. Method: Plasma cell analysis was performed with antibodies to the following antigens: CD19, CD38, CD45, CD138, kappa and lambda cytoplasmic immunoglobulin light chains and DAPI. FISH ANALYSIS FOR PCPDS, BONE MARROW: Based on flow cytometric analysis (>=0.1% monotypic plasma cells), additional plasma cell FISH testing is being performed. See separate report for results. Reviewed by: Tammy Funk M.D., Ph.D. 01/31/2025 6:00 PM CDT DTL Comment: ----ADDITIONAL INFORMATION---- This test was developed and its performance characteristics determined by [facility] in a manner consistent with CLIA requirements. This test has not been cleared or approved by the U.S. Food and Drug Administration. Bone Marrow 01/28/2025 1:25 PM CDT 01/28/2025 2:49 PM CDT us Harshad Perez M.D. LAB PATHOLOGY/CYTOLOGY ORDERABLES Final Result [facility] [address] [place] [address], [facility] DTL [address] [place] [address] * Hematologic Disorders, DNA and RNA Extract and Hold (01/28/2025 1:04 PM CDT) Specimen Type Bone marrow 02/02/2025 6:24 PM CDT DTL DNA/RNA Extract and Hold Result see method 02/02/2025 6:24 PM CDT DTL DNA/RNA Extraction Performed 2024 6:24 PM CDT DTL Comment: ----ADDITIONAL INFORMATION---- DNA and total RNA were extracted from the sample and will be stored cryopreserved for 1 year from the extraction date. To request specific molecular test(s) from the [facility]'s test catalog, please contact [facility] at [phone]. Method summary: DNA and RNA were extracted from the received specimen and stored at -80 C. This test was developed and its performance characteristics determined by [facility] in a manner consistent with CLIA requirements. This test has not been cleared or approved by the U.S. Food and Drug Administration. 01/28/2025 1:04 PM CDT 01/31/2025 7:46 AM CDT Harshad Perez M.D. LAB GENETIC TESTING Fin al Result [facility] [address] [place] [address], [facility] DT [address] [place] [address] * [place] NO CHARGE VISIT (01/28/2025 1:00 PM CDT) Bone Marrow Narrative Jd Hester R.N. - 01/28/2025 1:00 PM CDT Jd Hester R.N. 01/28/2025 1:27 PM Bone Marrow Research Aspirate Add On Collection Performed by: Jd Hester R.N. Authorized by: Natalie Ann M.D. POST-PROCEDURE DETAILS Procedure completed successfully: yes Complications: no apparent complications us Natalie Ann M.D. PROCEDURE/MINOR SURGICAL ORDERABLES Final Result * [place] DX BONE MARROW BX & ASPIR (01/28/2025 1:00 PM CDT) Bone Marrow Narrative MMODAL - 01/28/2025 1:00 PM CDT Jd Hester R.N. 01/28/2025 1:27 PM Biopsy Bone Marrow, Unsedated Performed by: Jd Hester R.N. Authorized by: Harshad Perez M.D. Care team members present 1. Jd Hester R.N. 2. Jose Alberto Trupti Nate PROCEDURE DETAILS Procedure: Bone Marrow biopsy and Bone Marrow aspiration Bone marrow biopsy Laterality: Left Location of biopsy: Posterior iliac crest Patient position: Side lying Type of Needle: Manual bone marrow biopsy needle Findings: Slides obtained, aspirate obtained with spicules noted, redirect for research and redirected for core biopsy Bone marrow aspiration Aspirate volume (mL): 28 CONSENT Consent obtained: written (Risks, benefits and alternatives were discussed and a written Informed Consent was obtained. Please see Informed Consent form for further details.) UNIVERSAL [employer]OTOCOL All relevant documentation and testing were reviewed and available. All required blood products, implants, devices and or special equipment were made available as applicable. Pre-procedure verification was conducted and the correct site was marked if required. A fire risk and smoke assessment were done as applicable. The procedural time-out to verify correct patient, correct side/site, and procedure was conducted prior to performing the procedure and confirmed in a procedural pause. PRE-PROCEDURE DETAILS Appropriate hand hygiene, gown, cap, mask, protective eyewear, sterile gloves, skin preparation, sterile drape, and strict aseptic technique were utilized as applicable for the procedure.: yes Site preparation: chlorhexidine SEDATION / ANESTHESIA Anesthesia method: local infiltration Local infiltrate type: lidocaine POST-PROCEDURE DETAILS Procedure completed successfully: yes Complications: no apparent complications Post-procedure instructions: Post-procedure activity instructions provided COMMENTS Lidocaine 1% 200 mg. Two attempts/biopsy. Harshad Perez M.D. PROCEDURE/MINOR SURGICA L ORDERABLES Final Result MMODAL NA * Hematopathology (01/28/2025 12:00 AM CDT) 01/31/2025 6:06 PM CDT [facility] Report electronically signed by Tammy Funk M.D., Ph.D. I verify that I have examined all relevant slides/materials for the specimen(s) and rendered or confirmed the diagnosis. 01/31/2025 6:06 PM [facility] Gross Description B: Core biopsy specimens were received in B5 and were subsequently placed in formalin. Received in formalin labeled with the patient's name, medical record number, and bone marrow biopsy are two neddi-umeg-hvj bone marrow cores and two fragments, 0.3 cm in average diameter and 3.5 cm in aggregate length. The longest core is bisected and submitted entirely in cassette B1 with the remaining material. The specimen was decalcified prior to processing. Grossed by QUINN. C: Received in formalin labeled with the patient's name, medical record number, and bone marrow clot is a 2.5 x 1.0 x 0.5 cm aggregateof dark red bone marrow clot material. The specimen is submitted en toto in cassette C1. Grossed by QUINN. 01/31/2025 6:06 PM [facility] Interpretation FINAL DIAGNOSIS Peripheral blood, bone marrow aspirate and biopsy, iliac crest: 1. Plasma cell myeloma, with >90% kappa light chain-restricted plasma cells. 2. Negative for amyloid. 3. Hypercellular bone marrow with panhypoplasia. Anemia. 4. No diagnostic morphologic features of a myelodysplastic syndrome, a myeloproliferative neoplasm, or other primary malignant myeloid neoplasm. MICROSCOPIC DESCRIPTION Peripheral Blood:By report CBC (dated 01/28/2025): Hgb 10.5 g/dl; RBC 3.44 x10(12)/L; MCV 94.5 fL; RDW 15.8%; WBC 5.9 x10(9)/L; PLT 332 x 10(9)/L. Cell % of Total Cells NEUTROPHILS 46 LYMPHOCYTES 51 MONOCYTES 2 EOSINOPHILS 1 BASOPHILS 0 METAMYELOCYTES 0 MYELOCYTES 0 PROMYELOCYTES 0 BLASTS 0 OTHER CELLS 0 NRBC 0 Total Cells: 100 Peripheral Smear: Mild normocytic anemia with rouleaux formation. Bone Marrow Aspirate/Touch Imprint/Biopsy: Cell % of Total Cells NEUTROPHILS 6 METAMYELOCYTES 0 MYELOCYTES 2 PROMYELOCYTES 0 EOSINOPHILS 0 BASOPHILS 0 BLASTS 0 NORMOBLASTS 2 MONOCYTES 0 PROMONOCYTES 0 LYMPHOCYTES 1 PLASMA CELLS 89 Technical Comment : Count done on unit prep Total Cells: 500 Aspirate quality: Cellular. Biopsy quality: Adequate. M:E ratio: Normal. Cellularity: Hypercellular, 80%. Erythroid precursors: Decreased quantity. Normal morphology. Myeloid precursors: Decreased quantity. Normal morphology. Blasts not increased. Megakaryocytes: Decreased quantity. Normal morphology and distribution. Lymphocytes: No abnormal lymphoid aggregates. Plasma cells: Increased (>90% of marrow cellularity). Cytology: Atypical. Distribution: Interstitial and large sheets. ANCILLARY STUDIES Iron stain, bone marrow aspirate: Decreased storage iron; sideroblasts absent; ring sideroblasts absent. Reticulin stain, bone marrow biopsy: No increase in reticulin fibrosis. Congo red stain, bone marrow biopsy: Amyloid is absent. MSMRD flow cytometric immunophenotyping, bone marrow: 1. Plasma cells express: monotypic kappa cytoplasmic immunoglobulin light chains, CD19 (partial), CD38 and CD138. They do not express: CD45. Method: Plasma cell analysis was performed with antibodies to the following antigens: CD19, CD38, CD45, CD138, kappa and lambda cytoplasmic immunoglobulin light chains and DAPI. FISH ANALYSIS FOR PCPDS, BONE MARROW: Based on flow cytometric analysis (>=0.1% monotypic plasma cells), additional plasma cell FISH testing is being performed. See separate report for results. Flow cytometric immunophenotyping, bone marrow: Test not indicated per Hematopathology review. Cytogenetic analysis, bone marrow aspirate: Test not indicated per Hematopathology review. Sample saved. FISH analysis for MDS, bone marrow aspirate: Test not indicated per Hematopathology review. Sample will be saved for 1 week. Molecular analysis for MPNR reflex (JAK2 V617F, CALR, MPL), bone marrow aspirate: Test not indicated per Hematopathology review. Sample will be saved for 1 week. DNA/RNA extraction, bone marrow aspirate: Requested. Extracted sample(s) will be stored for 1 year from date of extraction. 01/31/2025 6:06 PM CDT PM 01/28/2025 01/28/2025 2:0 9 PM CDT Harshad Perez M.D. LAB SURG PATH ORDERABLE S Final Result [facility] [address] [place] [address], [facility] [address] [place] [address] documented in this encounter Visit Diagnoses Diagnosis Multiple Myeloma Not Having Achieved Remission (HCC) Clinical Research Exam documented in this encounter Additional Health Concerns Infection Onset Date Last Indicated Resolved Time Protective Environment 01/27/2025 01/27/2025 documented as of this encounter
--- OUTSIDE RECORDS SUMMARY | 2025-01-28 13:30 | XMS_ITS | Encounter Summary ---
Author Organization [facility] Address [address] [place] [id number] Care Team Providers Care Guest Relations Officer Name Role Phone Unavailable Primary Care Provider Unavailabl e Reason for Visit * Episode Based Medications (Priority-Phone Follow-up) - Closed Specialty Diagnoses / Procedures Referred By Teresa t Referred To Contact Diagnoses Multiple Myeloma Not Having Achieved Remission (HCC) Procedures IA DARATUMUMAB, HYALURONIDASE IA BORTEZOMIB INJECTION Harshad Perez M.D. [address] [place] [address] Phone: tel: fax: Division of Hematology in [place], [place] [address] [place] [address] Phone: tel: Referral ID Status Reason Start Date Expiration Date Visits Re quested Visits Authorized [id number] Closed 01/27/2025 04/29/2026 99 99 Encounter Details Date Type Department Care Team (Late st Contact Info) Description 01/28/2025 1:30 PM CDT Infusion Department of Oncology in [place], [place] [address] [place] [phone] Harshad Perez M.D. [address] [place] [phone] Multiple Myeloma Not Having Achieved Remission (HCC) [...] things needed for daily living? No 01/27/2025 [facility] Utilities Answer Date Recorded In the past 12 months has [employer] electric, gas, oil, or water company threatened to shut off services in your home? No 01/27/2025 Housing Stability Answer Date Recorded What is your living situation today? I have a [facility] place to live 01/27/2025 Sex and Gender Information Value Date Recorded Sex Assigned at Male 01/27/2025 2:34 PM CDT Legal Sex Male 6:33 AM SOFTWARE ENGINEERING SPECIALIST Gender Identity Male 01/27/2025 2:34 PM CDT Sexual Orientation Straight 01/27/2025 2: 34 PM CDT documented as of this encounter Last Filed Vital Signs Vital Sign Reading Time Taken Comments Blood Pressure 126/75 01/28/2025 1:57 PM CDT Pulse 92 01/28/2025 1:57 PM CDT Temperature 36.2 C (97.2 F) 01/28/2025 1:57 PM CDT Respiratory Rate - - Oxygen Saturation - - Inhaled Oxygen Concentration - - Weight - - Height - - Body Mass Index - - documented in this encounter Plan of Treatment Upcoming Encounters Date Type Department Care Team (Latest Contact Info) Description 03/08/2025 8:00 AM CDT Appointment Department of Laboratory Medicine and Pathology, [facility], in [place], [place] [address] [place] [phone] Constantin López M.D. [address] [place] [phone] 03/08/2025 8:45 AM CDT Infusion Department of Oncology in [place], [place] [address] [place] [phone] Constantin López M.D. [address] [place] [phone] 03/08/2025 10:30 AM CDT Comprehensive Visit Department of Vascular Medicine in [place], [place] [address] [place] [phone] Vic Flores M.D. [address] [place] [phone] 03/11/2025 12:30 PM CDT Diagnostic Division of Pulmonary Medicine in [place], [place] [address] [place] [phone] Constantin López M.D. [address] [place] [phone] 03/11/2025 2:00 PM CDT Appointment Department of Vascular Medicine in [place], [place] [address] [place] [phone] Constantin López M.D. [address] [place] [phone] Discharge Disposition: Home or Self Care 03/15/2025 9:00 AM CDT Comprehensive Visit Department of Spine in [place], [place] [address] [place] [phone] Hebert Francis APRN, C.N.P., M.S.N. [address] [place] [phone] 03/15/2025 12:30 PM CDT Appointment Department of Laboratory Medicine and Pathology, [facility], in [place], [place] [address] [place] [phone] Harshad Perez M.D. [address] [place] [phone] 03/15/2025 2:30 PM CDT Office Visit Division of Hematology in [place], [place] [address] [place] [phone] Mely Hayden, STITCH BONDING MACHINE TENDER, C.N.P., D.N.P., M.S. [address] [place] [phone] 03/15/2025 4:00 PM CDT Infusion Department of Oncology in [place], [place] [address] [place] [phone] Harshad Perez M.D. [address] [place] [phone] 03/16/2025 1:30 PM CDT Comprehensive Visit Division of Pulmonary Medicine in [place], [place] [address] [place] [phone] Morgan Peck M.D. [address] [place] [phone] 03/22/2025 11:10 AM CDT Appointment Department of Laboratory Medicine and Pathology, [facility], in [place], [place] [address] [place] [phone] Harshad Perez M.D. [address] [place] [phone] 03/22/2025 1:00 PM CDT Infusion Department of Oncology in [place], [place] [address] [place] [phone] Harshad Perez M.D. [address] [place] [phone] 03/29/2025 9:15 AM CDT Appointment Division of Pulmonary Medicine in [place], [place] [address] [place] [address] Harshad Perez M.D. [address] [place] [phone] Discharge Disposition: Home or Self Care 03/29/2025 10:30 AM CDT Appointment Department of Laboratory Medicine and Pathology, [facility] in [place], [place] [address] [place] [phone] Harshad Perez M.D. [address] [place] [phone] 03/29/2025 11:15 AM CDT Nurse Only Division of Hematology in [place], [place] [address] [place] [address] Harshad Perez M.D. [address] [place] [phone] 03/29/2025 1:30 PM CDT Infusion Department of Oncology in [place], [place] [address] [place] [address] Harshad Perez M.D. [address] [place] [phone] 04/05/2025 10:10 AM CDT Appointment Department of Laboratory Medicine and Pathology, [facility], in [place], [place] [address] [place] [address] Harshad Perez M.D. [address] [place] [phone] 04/05/2025 12:00 PM CDT Infusion Department of Oncology in [place], [place] [address] [place] [address] Harshad Perez M.D. [address] [place] [phone] 04/12/2025 11:40 AM CDT Appointment Department of Laboratory Medicine and Pathology, [facility] in [place], [place] [address] [place] [address] Harshad Perez M.D. [address] [place] [phone] 04/12/2025 1:30 PM CDT Office Visit Division of Hematology in [place], [place] [address] [place] [address] Tr Hernandez M.D. [address] [place] [phone] 04/12/2025 3:30 PM CDT Infusion Department of Oncology in [place], [place] [address] [place] [phone] Harshad Perez M.D. [address] [place] [phone] 04/19/2025 10:15 AM CDT Infusion Department of Oncology in [place], [place] [address] [place] [phone] Harshad Perez M.D. [address] [place] [phone] 04/26/2025 10:10 AM CDT Appointment Department of Laboratory Medicine and Pathology, [facility] in [place], [place] [address] [place] [address] Harshad Perez M.D. [address] [place] [phone] 04/26/2025 11:00 AM CDT Nurse Only Division of Hematology in [place], [place] [address] [place] [phone] Harshad Perez M.D. [address] [place] [phone] 04/26/2025 12:00 PM CDT Infusion Department of Oncology in [place], [place] [address] [place] [phone] Harshad Perez M.D. [address] [place] [phone] 04/26/2025 1:30 PM CDT Appointment Division of Pulmonary Medicine in [place], [place] [address] [place] [phone] Harshad Perez M.D. [address] [place] [phone] Discharge Disposition: Home or Self Care 05/03/2025 10:15 AM CDT Infusion Department of Oncology in [place], [place] [address] [place] [phone] Harshad Perez M.D. [address] [place] [phone] 05/10/2025 9:40 AM SOFTWARE ENGINEERING SPECIALIST Appointment Department of Laboratory Medicine and Pathology, [facility], in [place], [place] [address] [place] [phone] Constantin López M.D. [address] [place] [phone] 05/10/2025 11:30 AM SOFTWARE ENGINEERING SPECIALIST Office Visit Division of Hematology in [place], [place] [address] [place] [phone] Mely Hayden, ANY, C.N.P., D.N.P., M.S. [address] [place] [phone] 05/10/2025 1:00 PM SOFTWARE ENGINEERING SPECIALIST Infusion Department of Oncology in [place], [place] [address] [place] [phone] Constantin López M.D. [address] [place] [phone] 05/17/2025 10:15 AM SOFTWARE ENGINEERING SPECIALIST Infusion Department of Oncology in [place], [place] [address] [place] [phone] Constantin López M.D. [address] [place] [phone] 05/24/2025 10:00 AM SOFTWARE ENGINEERING SPECIALIST Appointment Department of Laboratory Medicine and Pathology, [facility] in [place], [place] [address] [place] [phone] Constantin López M.D. [address] [place] [phone] 05/24/2025 10:45 AM SOFTWARE ENGINEERING SPECIALIST Appointment Division of Pulmonary Medicine in [address] [phone] Harshad Perez M.D. [address] [place] [phone] Discharge Disposition: Home or Self Care 05/24/2025 12:00 PM SOFTWARE ENGINEERING SPECIALIST Infusion Department of Oncology in [place], [place] [address] [place] [phone] Constantin López M.D. [address] [place] [phone] 05/31/2025 10:00 AM SOFTWARE ENGINEERING SPECIALIST Infusion Department of Oncology in [place], [place] [address] [place] [phone] Constantin López M.D. [address] [place] [phone] documented as of this encounter Visit Diagnoses Diagnosis Multiple Myeloma Not Having Achieved Remission (HCC)- Primary documented in this encounter Administered Medications Inactive Administered Medications - up to 3 most recent administrations Medication Order MAR Action Action Date Dose Rate Site acetaminophen tablet 650 mg (TylenoL) 650 mg, oral, Once, On Fri01/28/25 at 1415, For 1 dose, Administer 30 minutes prior to monoclonal antibody.Indications:Mu ltiple Myeloma Not Having Achieved Remission (HCC) Given 01/28/2025 2:26 PM CDT 650 mg bortezomib injection 2.5 mg (Velcade) 2.5 mg (rounded from 2.626 mg = 1.3 mg/m2 2.02 m2 Order-specific BSA), subcutaneous, Once, On Fri01/28/25 at 1445, For 1 dose, Rotate injection site.Indications:Multip le Myeloma Not Having Achieved Remission (HCC) Given 01/28/2025 3:09 PM CDT 2.5 mg Right Lower Abdomen cetirizine tablet 10 mg (ZyrTEC) 10 mg, oral, Once, On Fri01/28/25 at 1500, For 1 dose, Drug Monitoring Program: Pharmacist to adjust medication dosing based on indication and drug clearance factors.Indications:Mul tiple Myeloma Not Having Achieved Remission (HCC) Given 01/28/2025 2:37 PM CDT 10 mg daratumumab-hyaluronida se-fij injection 1,800 mg (Darzalex Faspro) 1,800 mg, subcutaneous, Administer over 5 Minutes, Once, On Fri01/28/25 at 1445, For 1 doseIndications:Multipl e Myeloma Not Having Achieved Remission (HCC) Given 01/28/2025 3:10 PM CDT 1,800 mg Left Lower Abdomen diphenhydrAMINE capsule 25 mg (BenadryL) 25 mg, oral, Once, On Fri01/28/25 at 1430, For 1 dose, Administer 30 minutes prior to monoclonal antibodyIndications:Mul tiple Myeloma Not Having Achieved Remission (HCC) Given 01/28/2025 2:26 PM CDT 25 mg montelukast tablet 10 mg (Singulair) 10 mg, oral, Once, On Fri01/28/25 at 1415, For 1 dose, Administer 30 minutes prior to monoclonal antibody.Indications:Mu ltiple Myeloma Not Having Achieved Remission (HCC) Given 01/28/2025 2:37 PM CDT 10 mg documented in this encounter Additional Health Concerns Infection Onset Date Last Indicated Resolved Time Protective Environment 01/27/2025 01/27/2025 documented as of this encounter
--- OUTSIDE RECORDS SUMMARY | 2025-01-31 09:20 | XMS_ITS | Encounter Summary ---
Author Organization [facility] Address [address] [place] [address] Care Team Providers Care Bottle Packer Name Role Phone Unavailable Primary Care Provider Unavailabl e Encounter Details Date Type Department Care Team (Late Contact Info) Description 01/31/2025 9:20 AM CDT Admin Visit Department of Oncology in [place], [place] [address] [place] [address] Social History Tobacco Use Types Packs/Day Years [...] things needed for daily living? No 01/27/2025 [facility] Utilities Answer Date Recorded In the past 12 months has [employer], gas, oil, or water company threatened to shut off services in your home? No 01/27/2025 Housing Stability Answer Date Recorded What is your living situation today? I have a [facility] place to live 01/27/2025 Sex and Gender Information Value Date Recorded Sex Assigned at Male 01/27/2025 2:34 PM CDT Legal Sex Male 6:33 AM FINANCIAL ASSISTANCE SPECIALIST Gender Identity Male 01/27/2025 2:34 PM CDT Sexual Orientation Straight 01/27/2025 2: 34 PM CDT documented as of this encounter Plan of Treatment Upcoming Encounters Date Type Department Care Team (Latest Contact Info) Description 03/08/2025 8:00 AM CDT Appointment Department of Laboratory Medicine and Pathology, [facility] in [place], [place] [address] [place] [address] Constantin López M.D. [address] [place] [phone] 03/08/2025 8:45 AM CDT Infusion Department of Oncology in [place], [place] [address] [place] [phone] Constantin López M.D. [address] [place] [phone] 03/08/2025 10:30 AM CDT Comprehensive Visit Department of Vascular Medicine in [place], [place] [address] [place] [phone] Vic Flores M.D. [address] [place] [phone] 03/11/2025 12:30 PM CDT Diagnostic Division of Pulmonary Medicine in [place], [place] [address] [place] [phone] Constantin López M.D. [address] [place] [phone] 03/11/2025 2:00 PM CDT Appointment Department of Vascular Medicine in [place], [place] [address] [place] [phone] Constantin López M.D. [address] [place] [phone] Discharge Disposition: Home or Self Care 03/15/2025 9:00 AM CDT Comprehensive Visit Department of Spine in [place], [place] [address] [place] [phone] Hebert Francis APRN, C.N.P., M.S.N. [address] [place] [phone] 03/15/2025 12:30 PM CDT Appointment Department of Laboratory Medicine and Pathology, [facility] in [place], [place] [address] [place] [phone] Harshad Perez M.D. [address] [place] [phone] 03/15/2025 2:30 PM CDT Office Visit Division of Hematology in [address] [phone] Mely Hayden APRN, C.N.P., D.N.P., M.S. [address] [place] [phone] 03/15/2025 4:00 PM CDT Infusion Department of Oncology in [place], [place] [address] [place] [phone] Harshad Perez M.D. [address] [place] [phone] 03/16/2025 1:30 PM CDT Comprehensive Visit Division of Pulmonary Medicine in [place], [place] [address] [place] [address] Morgan Peck M.D. [address] [place] [phone] 03/22/2025 11:10 AM CDT Appointment Department of Laboratory Medicine and Pathology, [facility] in [place], [place] [address] [place] [address] Harshad Perez M.D. [address] [place] [phone] 03/22/2025 1:00 PM CDT Infusion Department of Oncology in [place], [place] [address] [place] [address] Harshad Perez M.D. [address] [place] [phone] 03/29/2025 9:15 AM CDT Appointment Division of Pulmonary Medicine in [place], [place] [address] [place] [phone] Harshad Perez M.D. [address] [place] [phone] Discharge Disposition: Home or Self Care 03/29/2025 10:30 AM CDT Appointment Department of Laboratory Medicine and Pathology, [facility], in [place], [place] [address] [place] [address] Harshad Perez M.D. [address] [place] [phone] 03/29/2025 11:15 AM CDT Nurse Only Division of Hematology in [place], [place] [address] [place] [phone] Harshad Perez M.D. [address] [place] [phone] 03/29/2025 1:30 PM CDT Infusion Department of Oncology in [place], [place] [address] [place] [phone] Harshad Perez M.D. [address] [place] [phone] 04/05/2025 10:10 AM CDT Appointment Department of Laboratory Medicine and Pathology, [facility] in [place], [place] [address] [place] [phone] Harshad Perez M.D. [address] [place] [phone] 04/05/2025 12:00 PM CDT Infusion Department of Oncology in [place], [place] [address] [place] [phone] Harshad Perez M.D. [address] [place] [phone] 04/12/2025 11:40 AM CDT Appointment Department of Laboratory Medicine and Pathology, [facility] in [place], [place] [address] [place] [address] Harshad Perez M.D. [address] [place] [phone] 04/12/2025 1:30 PM CDT Office Visit Division of Hematology in [place], [place] [address] [place] [phone] Tr Hernandez M.D. [address] [place] [phone] 04/12/2025 3:30 PM CDT Infusion Department of Oncology in [place], [place] [address] [place] [phone] Harshad Perez M.D. [address] [place] [phone] 04/19/2025 10:15 AM CDT Infusion Department of Oncology in [place], [place] [address] [place] [phone] Harshad Perez M.D. [address] [place] [phone] 04/26/2025 10:10 AM CDT Appointment Department of Laboratory Medicine and Pathology, [facility] in [place], [place] [address] [place] [address] Harshad Perez M.D. [address] [place] [phone] 04/26/2025 11:00 AM CDT Nurse Only Division of Hematology in [place], [place] [address] [place] [phone] Harshad Perez M.D. [address] [place] [phone] 04/26/2025 12:00 PM CDT Infusion Department of Oncology in [place], [place] [address] [place] [address] Harshad Perez M.D. [address] [place] [phone] 04/26/2025 1:30 PM CDT Appointment Division of Pulmonary Medicine in [place], [place] [address] [place] [phone] Harshad Perez M.D. [address] [place] [phone] Discharge Disposition: Home or Self Care 05/03/2025 10:15 AM CDT Infusion Department of Oncology in [place], [place] [address] [place] [address] Harshad Perez M.D. [address] [place] [phone] 05/10/2025 9:40 AM FINANCIAL ASSISTANCE SPECIALIST Appointment Department of Laboratory Medicine and Pathology, [facility] in [place], [place] [address] [place] [address] Constantin López M.D. [address] [place] [phone] 05/10/2025 11:30 AM FINANCIAL ASSISTANCE SPECIALIST Office Visit Division of Hematology in [place], [place] [address] [place] [phone] Mely Hayden, ANY, C.N.P., D.N.P., M.S. [address] [place] [phone] 05/10/2025 1:00 PM FINANCIAL ASSISTANCE SPECIALIST Infusion Department of Oncology in [place], [place] [address] [place] [phone] Constantin López M.D. [address] [place] [phone] 05/17/2025 10:15 AM FINANCIAL ASSISTANCE SPECIALIST Infusion Department of Oncology in [place], [place] [address] [place] [phone] Constantin López M.D. [address] [place] [phone] 05/24/2025 10:00 AM FINANCIAL ASSISTANCE SPECIALIST Appointment Department of Laboratory Medicine and Pathology, [facility], in [place], [place] [address] [place] [address] Constantin López M.D. [address] [place] [phone] 05/24/2025 10:45 AM FINANCIAL ASSISTANCE SPECIALIST Appointment Division of Pulmonary Medicine in [place], [place] [address] [place] [phone] Harshad Perez M.D. [address] [place] [phone] Discharge Disposition: Home or Self Care 05/24/2025 12:00 PM FINANCIAL ASSISTANCE SPECIALIST Infusion Department of Oncology in [place], [place] [address] [place] [address] Constantin López M.D. [address] [place] [phone] 05/31/2025 10:00 AM FINANCIAL ASSISTANCE SPECIALIST Infusion Department of Oncology in [place], [place] [address] [place] [phone] Constantin López M.D. [address] [place] [phone] documented as of this encounter Visit Diagnoses Not on filedocumented in this encounter Additional Health Concerns Infection Onset Date Last Indicated Resolved Time Protective Environment 01/27/2025 01/27/2025 documented as of this encounter
--- OUTSIDE RECORDS SUMMARY | 2025-02-03 08:56 | XMS_ITS | Encounter Summary ---
Author Organization [facility] Address [address] [place] [id number] Care Team Providers Care Insurance Risk Manager Name Role Phone Unavailable Primary Care Provider Unavailabl e Encounter Details Date Type Department Care Team (Latest Contact Info) Description 02/03/2025 8:56 AM CDT - 02/03/2025 10:32 AM CDT Hospital Encounter Department of Laboratory Medicine and Pathology, [facility] in [place], [place] [address] [place] [address] Harshad Perez M.D. [address] [place] [address] Multiple Myeloma Not Having Achieved Remission (HCC) [...] things needed for daily living? No 01/27/2025 [facility] Utilities Answer Date Recorded In the past 12 months has e [employer], gas, oil, or water [employer] threatened to shut off services in your home? No 01/27/2025 Housing Stability Answer Date Recorded What is your living situation today? I have a [facility] place to live 01/27/2025 Sex and Gender Information Value Date Recorded Sex Assigned at Male 01/27/2025 2:34 PM CDT Legal Sex Male 6:33 AM ADVANCED ANALYTICS ASSOCIATE Gender Identity Male 01/27/2025 2:34 PM CDT [...] through 21 of cycle 21 capsule 01/28/2025 lenalidomide (Revlimid) 10 mg capsuleIndicatio ns:Multiple Myeloma Not Having Achieved Remission (HCC) Take 1 capsule (10 mg total) by mouth daily. Take on days 1 through 21 of cycle 21 capsule 01/31/2025 ondansetron (Zofran) 8 mg tabletIndication s:Multiple Myeloma Not Having Achieved Remission (HCC) Take 1 tablet (8 mg total) by mouth every 8 (eight) hours as needed for nausea or vomiting (unrelieved by prochlorperazine). 30 tablet 3 01/28/2025 12:05 PM CDT 01/27/2025 prochlorperazine (Compazine) 10 mg tabletIndication s:Multiple Myeloma [...] 1 capsule (300 mg total) by mouth 2 (two) times a day. 30 capsule 02/08/2025 4:52 PM CDT 02/03/2025 5 levoFLOXacin (Levaquin) 250 mg tabletIndication s:Multiple [...] Appointment Department of Laboratory Medicine and Pathology, [facility] in [place], [place] [address] [place] [phone] Constantin López M.D. 200 [place] [phone] 03/08/2025 8:45 AM CDT Infusion Department of Oncology in [place], [place] [address] [place] [place] [phone] Constantin López M.D. [address] [place] [phone] 03/08/2025 10:30 AM CDT Comprehensive Visit Department of Vascular Medicine in [place], [place] [address] [place] [phone] Vic Flores M.D. [address] [place] [phone] 03/11/2025 12:30 PM CDT Diagnostic Division of Pulmonary Medicine in [place], [place] [address] [place] [place] [phone] Constantin López M.D. [address] [place] [phone] 03/11/2025 2:00 PM CDT Appointment Department of Vascular Medicine in [place], [place] [address] [place] [phone] Constantin López M.D. [address] [place] [phone] Discharge Disposition: Home or Self Care 03/15/2025 9:00 AM CDT Comprehensive Visit Department of Spine in [place], [place] [address] [place] [phone] Hebert Francis APRN, C.N.P., M.S.N. [address] [place] [phone] 03/15/2025 12:30 PM CDT Appointment Department of Laboratory Medicine and Pathology, [facility], in [place], [place] [address] [place] [address] Harshad Perez M.D. [address] [place] [phone] 03/15/2025 2:30 PM CDT Office Visit Division of Hematology in [place], [place] [address] [place] [phone] Mely Hayden APRN, C.N.P., D.N.P., M.S. [address] [place] [phone] 03/15/2025 4:00 PM CDT Infusion Department of Oncology in [place], [place] [address] [place] [phone] Harshad Perez M.D. [address] [place] [phone] 03/16/2025 1:30 PM CDT Comprehensive Visit Division of Pulmonary Medicine in [place], [place] [address] [place] [phone] Morgan Peck M.D. [address] [place] [phone] 03/22/2025 11:10 AM CDT Appointment Department of Laboratory Medicine and Pathology, [facility], in [place], [place] [address] [place] [phone] Harshad Perez M.D. [address] [place] [phone] 03/22/2025 1:00 PM CDT Infusion Department of Oncology in [place], [place] [address] [place] [phone] Harshad Perez M.D. [address] [place] [phone] 03/29/2025 9:15 AM CDT Appointment Division of Pulmonary Medicine in [address] [place] [address] Harshad Perez M.D. [address] [place] [phone] Discharge Disposition: Home or Self Care 03/29/2025 10:30 AM CDT Appointment Department of Laboratory Medicine and Pathology, [facility] in [place], [place] [address] [place] [phone] Harshad Perez M.D. [address] [place] [phone] 03/29/2025 11:15 AM CDT Nurse Only Division of Hematology in [place], [place] [address] [place] [phone] Harshad Perez M.D. [address] [place] [phone] 03/29/2025 1:30 PM CDT Infusion Department of Oncology in [place], [place] [address] [place] [address] Harshad Perez M.D. [address] [place] [phone] 04/05/2025 10:10 AM CDT Appointment Department of Laboratory Medicine and Pathology, [facility], in [place], [place] [address] [place] [phone] Harshad Perez M.D. [address] [place] [phone] 04/05/2025 12:00 PM CDT Infusion Department of Oncology in [place], [place] [address] [place] [address] Harshad Perez M.D. [address] [place] [phone] 04/12/2025 11:40 AM CDT Appointment Department of Laboratory Medicine and Pathology, [facility], in [place], [place] [address] [place] [address] Harshad Perez M.D. [address] [place] [phone] 04/12/2025 1:30 PM CDT Office Visit Division of Hematology in [place], [place] [address] [place] [address] Tr Hernandez M.D. [address] [place] [phone] 04/12/2025 3:30 PM CDT Infusion Department of Oncology in [place], [place] [address] [place] [address] Harshad Perez M.D. [address] [place] [phone] 04/19/2025 10:15 AM CDT Infusion Department of Oncology in [place], [place] [address] [place] [address] Harshad Perez M.D. [address] [place] [phone] 04/26/2025 10:10 AM CDT Appointment Department of Laboratory Medicine and Pathology, [facility], in [place], [place] [address] [place] [address] Harshad Perez M.D. [address] [place] [phone] 04/26/2025 11:00 AM CDT Nurse Only Division of Hematology in [place], [place] [address] [place] [address] Harshad Perez M.D. [address] [place] [phone] 04/26/2025 12:00 PM CDT Infusion Department of Oncology in [place], [place] [address] [place] [phone] Harshad Perez M.D. [address] [place] [phone] 04/26/2025 1:30 PM CDT Appointment Division of Pulmonary Medicine in [place], [place] [address] [place] [phone] Harshad Perez M.D. [address] [place] [phone] Discharge Disposition: Home or Self Care 05/03/2025 10:15 AM CDT Infusion Department of Oncology in [address] [phone] Harshad Perez M.D. [address] [place] [phone] 05/10/2025 9:40 AM ADVANCED ANALYTICS ASSOCIATE Appointment Department of Laboratory Medicine and Pathology, [facility], in [place], [place] [address] [place] [phone] Constantin López M.D. [address] [place] [phone] 05/10/2025 11:30 AM ADVANCED ANALYTICS ASSOCIATE Office Visit Division of Hematology in [address] [phone] Mely Hayden, ANY, C.N.P., D.N.P., M.S. [address] [place] [phone] 05/10/2025 1:00 PM ADVANCED ANALYTICS ASSOCIATE Infusion Department of Oncology in [place], [place] [address] [place] [phone] Constantin López M.D. [address] [place] [phone] 05/17/2025 10:15 AM ADVANCED ANALYTICS ASSOCIATE Infusion Department of Oncology in [place], [place] [address] [place] [phone] Constantin López M.D. [address] [place] [phone] 05/24/2025 10:00 AM ADVANCED ANALYTICS ASSOCIATE Appointment Department of Laboratory Medicine and Pathology, [facility] in [place], [place] [address] [place] [phone] Constantin López M.D. [address] [place] [phone] 05/24/2025 10:45 AM ADVANCED ANALYTICS ASSOCIATE Appointment Division of Pulmonary Medicine in [address] [phone] Harshad Perez M.D. [address] [place] [phone] Discharge Disposition: Home or Self Care 05/24/2025 12:00 PM ADVANCED ANALYTICS ASSOCIATE Infusion Department of Oncology in [place], [place] [address] [place] [phone] Constantin López M.D. [address] [place] [phone] 05/31/2025 10:00 AM ADVANCED ANALYTICS ASSOCIATE Infusion Department of Oncology in [place], [place] [address] [place] [phone] Constantin López M.D. [address] [place] [phone] documented as of this encounter Procedures Procedure Name Priority Date/Time Associated Diagnosis Comments IMMUNOGLOBULIN FREE LIGHT CHAINS, S Routine 02/03/2025 9:13 AM CDT Multiple Myeloma Not Having Achieved Remission (HCC) LACTATE DEHYDROGENASE (LD), S Routine 02/03/2025 9:13 AM CDT Multiple Myeloma Not Having Achieved Remission (HCC) BASIC METABOLIC PANEL, S/P Routine 02/03/2025 9:13 AM CDT Multiple Myeloma Not Having Achieved Remission (HCC) documented in this encounter Results * (ABNORMAL) Immunoglobulin Free Light Chains (02/03/2025 9:13 AM CDT) [place] Free Light Chain, S 282(H) 0.3300 - 1.94 mg/dL 02/03/2025 1:08 PM CDT [facility] Lambda Free Light Chain, S 0.1800(L) 0.5700 - 2.63 mg/dL 02/03/2025 12:54 PM CDT [facility] [place]/Lambda FLC Ratio >1000(H) 0.2600 - 1.65 02/03/2025 1:08 PM CDT [facility] Blood (Blood, Venous) 02/03/2025 9:13 AM CDT 02/03/2025 12:00 PM CDT us Harshad Perez M.D. LAB BLOOD ADD-ON Final Result [facility] [address] [place] [address] [facility] [address] [place] [address] * (ABNORMAL) Basic Metabolic Panel (02/03/2025 9:13 AM CDT) Pathologist [facility] Potassium, S 4.1 3.6 - 5.2 mmol/L 02/03/2025 10:17 AM CDT DTL Sodium, S 133(L) 135 - 145 mmol/L 02/03/2025 10:17 AM CDT DTL Chloride, S 102 98 - 107 mmol/L 02/03/2025 10:17 AM CDT DTL Bicarbonate, S 24 22 - 29 mmol/L 02/03/2025 10:17 AM CDT DTL Anion Gap 7 7 - 15 02/03/2025 10:17 AM CDT DTL BUN (Blood Urea Nitrogen), S 20 8 - 24 mg/dL 02/03/2025 10:17 AM CDT DTL Creatinine 1.31 0.74 - 1.35 mg/dL 02/03/2025 10:17 AM CDT DTL Estimated GFR (eGFR) 62 >=60 mL/min/BSA 02/03/2025 10:17 AM CDT DTL Comment: Estimated GFR calculated using the 2020 CKD_EPI creatinine equation. Calcium, Total, S 8.6(L) 8.8 - 10.2 mg/dL 02/03/2025 10:17 AM CDT DTL Glucose, S 105 70 - 140 mg/dL 02/03/2025 10:17 AM CDT DTL Blood (Blood, Venous) 02/03/2025 9:13 AM CDT 02/03/2025 9:34 AM CDT us Harshad Perez M.D. LAB BLOOD ADD-ON Final Result [facility] [address] [place] [address], [facility] [place] 2[facility] [address] [place] [address] * LD (Lactate Dehydrogenase) (02/03/2025 9:13 AM CDT) Lactate Dehydrogenase (LD), S 141 122 - 222 U/L 02/03/2025 10:17 AM CDT DTL Blood (Blood, Venous) 02/03/2025 9:13 AM CDT 02/03/2025 9:34 AM CDT us Harshad Perez M.D. LAB BLOOD NON ADD-ON Fi nal Result [facility] [address] [place] [address], [place] DTL [facility] [address] [place] [address] documented in this encounter Visit Diagnoses Diagnosis Multiple Myeloma Not Having Achieved Remission (HCC) documented in this encounter Additional Health Concerns Infection Onset Date Last Indicated Resolved Time Protective Environment 01/27/2025 01/27/2025 documented as of this encounter
--- OUTSIDE RECORDS SUMMARY | 2025-02-03 09:45 | XMS_ITS | Encounter Summary ---
Author Organization [facility] Address [address] [place] [address] Care Team Providers Care Steam Blocker Name Role Phone Unavailable Primary Care Provider Unavailabl e Reason for Referral * MRI/CAT/PET Scan (Routine) - Closed Specialty Diagnoses / Procedures Referred By Contac t Referred To Contact Radiology Diagnoses Pain Low Back Unspecified Procedures MR Lumbar Spine without IV Contrast Harshad Conti M.D. [address] [place] [address] Phone: tel:[phone] fax: [facility] Referral ID Status Reason Start Date Expiration Date Visits Re quested Visits Authorized [id number] Closed 02/03/2025 05/06/2026 1 1 * Outpatient (Routine) - Closed Specialty Diagnoses / Procedures Referred By Contac t Referred To Contact Diagnoses Multiple Myeloma Not Having Achieved Remission (HCC) Pain Low Back Unspecified Procedures DX Lumbar Spine 2-3 Views Harshad Conti M.D. [address] [place] [address] Phone: tel:[phone] fax: [facility] Referral ID Status Reason Start Date Expiration Date Visits Re quested Visits Authorized [id number] Closed 02/03/2025 05/06/2026 1 1 * Outpatient (Routine) - Authorized Specialty Diagnoses / Procedures Referred By Contac t Referred To Contact Spine Diagnoses Multiple Myeloma Not Having Achieved Remission (HCC) Pain Low Back Unspecified Harshad Conti M.D. [address] [place] [address] Phone: tel:[phone] fax: [facility] Referral ID Status Reason Start Date Expiration Date V isits Requested Visits Authorized [id number] Authorized 02/03/2025 08/05/2026 1 1 * Outpatient (Routine) - Closed Specialty Diagnoses / Procedures Referred By Contac t Referred To Contact Diagnoses Multiple Myeloma Not Having Achieved Remission (HCC) Pain Low Back Unspecified Procedures EMG VT EMG NDL NON-EXT W NRV CONDCT Harshad Conti M.D. [address] [place] [address] Phone: tel:[phone] fax: [facility] Referral ID Status Reason Start Date Expiration Date Visits Re quested Visits Authorized [id number] Closed 02/03/2025 05/06/2026 1 1 * Outpatient (Routine) - Authorized Specialty Diagnoses / Procedures Referred By Contmunir t Referred To Contact Palliative Medicine Diagnoses Multiple Myeloma Not Having Achieved Remission (HCC) Pain Low Back Unspecified Harshad Conti M.D. [address] [place] [address] Phone: tel:[phone] fax: [facility] Referral ID Status Reason Start Date Expiration Date V isits Requested Visits Authorized [id number] Authorized 02/03/2025 08/05/2026 1 1 Reason for Visit * Outpatient (Routine) - Closed Specialty Diagnoses / Procedures Referred By Contmunir t Referred To Contact Hematology Oncology Harshad Conti M.D. [address] [place] [address] Phone: tel: fax: [facility] Referral ID Status Reason Start Date Expiration Date Visits Re quested Visits Authorized [id number] Closed 01/28/2025 07/30/2026 1 1 Encounter Details Date Type Department Care Team ([facility] Contact Info) Description 02/03/2025 9:45 AM CDT Office Visit Division of Hematology in [place], [place] [address] [place] [address] Harshad Conti M.D. [address] [place] [address] Multiple Myeloma Not Having Achieved Remission (HCC) (Primary Dx); Pain Low Back Unspecified Social History Tobacco Use Types Packs/Day Years Used Date Smoking Tobacco: Former Cigarettes 0.8 36.2 0 12/10/1974 - 03/06/2011 Smokeless Tobacco: Never Tobacco Cessation:Counseling Given: Not Answered Comments:I started smoking before entering high school, but probably didn't start [...] things needed for daily living? No 01/27/2025 [facility] Utilities Answer Date Recorded In the past 12 months has [employer] electric, gas, oil, or water [employer] threatened to shut off services in your home? No 01/27/2025 Housing Stability Answer Date Recorded What is your living situation today? 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 Gender Identity Male 01/27/2025 2:34 PM CDT Sexual Orientation Straight 01/27/2025 2: 34 PM CDT documented as of this encounter Last Filed Vital Signs Vital Sign Reading Time Taken Comments Blood Pressure 119/72 02/03/2025 9:32 AM CDT Pulse 83 02/03/2025 9:32 AM CDT Temperature 36.4 C (97.6 F) 02/03/2025 9:32 AM CDT Respiratory Rate - - Oxygen Saturation - - Inhaled Oxygen Concentration - - Weight 75 kg (165 lb 7.3 oz) 02/03/2025 9:32 AM CDT Height 172.7 cm (5' 7.99) 02/03/2025 9:32 AM CD T Body Mass Index 25.16 02/03/2025 9:32 AM CDT documented in this encounter Progress Notes * Harshad Conti M.D. - 02/03/2025 9:45 AM CDT CC: JEREMY MM, Referral source: Self: PET CT Skull to mid thigh, innumerable tiny and some large lytic and osseous lesions. I have other symptoms of multiple myeloma. Most troublesome is a sensitive and very sore left foot. My right foot has been ok but is now showing signs similar to left foot. KAW: Date of Diagnosis: pending MD evaluation and additional testing Presenting symptoms: Symptoms started near July 2024 of epistaxis, weight loss, foamy urine, hip/leg pain, LE swelling with redness and hypersensitivity. Labs: Date: January 2025 Hgb: 11.8 g/dL Plts: 364K Creatinine: 1.46 mg/dL Calcium: 8.8 mg/dL Total Protein: 9.4 Albumin: 3.3 g/dL CRP 53.5 LDH: 179 B2M: 8.55 SPEP: M-spike: 1.95 g/dL Immunofixation: IgG [place] Immunoglobulins: Ig.86 mg/dL; IgA: 33.8 mg/dL; IgM: 10.21 mg/dL Free light chains (mg/dL): kappa: ; lambda: ; [place]:Lambda Ratio: UPEP: Urine Random: total protein: 12 mg/dL; urine M-spike: 1.11 mg, Immunofixation: Monoclonal protein detected in beta-gamma region, confirmed by immunofixation. IgG kappa with probable free kappa light chains. Pathology: Bone Marrow: 90% FISH: Pending Imagin01/20/2025 PET/CT, Impression: 1. Diffuse intense FDG [...] response to systemic inflammatory process INTERVAL HISTORY Started DVRD January 2025. Plan #Myeloma newly diagnosed Will continue DVRD for now. Discussed the IDEAL study in detail. Supportive care needed is -full dose aspirin or blood thinner due to Revlimid -acyclovir to prevent shingles due to Darzalex and Velcade -bactrim to prevent PJP pneumonia due to Darzalex/Velcade and steroids. I have advised starting bactrim after cycle 1 in case he gets a rash so we will know if it is Revlimid or bactrim related -bone strengtheners: Zometa monthly until July 2025 and then q 3 months. - Prilosec for acid supression #Foot pain Sounds like sciatica but would like to clarify. Will get EMG and imaging, refer to spine center for ?steroid injections or other suggestions as well as palliative in case supportive care does not work. For now I have asked him to increase the gabapentin to BID for the next week and TID after a that. It hurts him just to touch it so feels hesitant of trying capsaicin cream which would be a good idea given how localized this is to his left foot. documented in this encounter Plan of Treatment Upcoming Encounters Date Type Department Care Team (Latest Contact Info) Description 03/08/2025 8:00 AM CDT Appointment Department of Laboratory Medicine and Pathology, [facility], in [place], [place] [address] [place] [phone] Constantin López M.D. [address] [place] [phone] 03/08/2025 8:45 AM CDT Infusion Department of Oncology in [place], [place] [address] [place] [phone] Constantin López M.D. [address] [place] [phone] 03/08/2025 10:30 AM CDT Comprehensive Visit Department of Vascular Medicine in [place], [place] [address] [place] [phone] Vic Flores M.D. [address] [place] [phone] 03/11/2025 12:30 PM CDT Diagnostic Division of Pulmonary Medicine in [place], [place] [address] [place] [phone] Constantin López M.D. [address] [place] [phone] 03/11/2025 2:00 PM CDT Appointment Department of Vascular Medicine in [place], [place] [address] [place] [phone] Constantin López M.D. [address] [place] [phone] Discharge Disposition: Home or Self Care 03/15/2025 9:00 AM CDT Comprehensive Visit Department of Spine in [place], [place] [address] [place] [address] Hebert Francis APRN, C.N.P., M.S.N. [address] [place] [phone] 03/15/2025 12:30 PM CDT Appointment Department of Laboratory Medicine and Pathology, [facility] in [place], [place] [address] [place] [address] Harshad Conti M.D. [address] [place] [phone] 03/15/2025 2:30 PM CDT Office Visit Division of Hematology in [place], [place] [address] [place] [phone] Mely Hayden APRN, C.N.P., D.N.P., M.S. [address] [place] [phone] 03/15/2025 4:00 PM CDT Infusion Department of Oncology in [place], [place] [address] [place] [address] Harshad Conti M.D. [address] [place] [phone] 03/16/2025 1:30 PM CDT Comprehensive Visit Division of Pulmonary Medicine in [place], [place] [address] [place] [phone] Morgan Peck M.D. [address] [place] [phone] 03/22/2025 11:10 AM CDT Appointment Department of Laboratory Medicine and Pathology, [facility] in [place], [place] [address] [place] [address] Harshad Conti M.D. [address] [place] [phone] 03/22/2025 1:00 PM CDT Infusion Department of Oncology in [place], [place] [address] [place] [address] Harshad Conti M.D. [address] [place] [phone] 03/29/2025 9:15 AM CDT Appointment Division of Pulmonary Medicine in [place], [place] [address] [place] [phone] Harshad Conti M.D. [address] [place] [phone] Discharge Disposition: Home or Self Care 03/29/2025 10:30 AM CDT Appointment Department of Laboratory Medicine and Pathology, [facility], in [place], [place] [address] [place] [address] Harshad Conti M.D. [address] [place] [phone] 03/29/2025 11:15 AM CDT Nurse Only Division of Hematology in [place], [place] [address] [place] [phone] Harshad Conti M.D. [address] [place] [phone] 03/29/2025 1:30 PM CDT Infusion Department of Oncology in [place], [place] [address] [place] [phone] Harshad Conti M.D. [address] [place] [phone] 04/05/2025 10:10 AM CDT Appointment Department of Laboratory Medicine and Pathology, [facility] in [place], [place] [address] [place] [phone] Harshad Conti M.D. [address] [place] [phone] 04/05/2025 12:00 PM CDT Infusion Department of Oncology in [place], [place] [address] [place] [phone] Harshad Conti M.D. [address] [place] [phone] 04/12/2025 11:40 AM CDT Appointment Department of Laboratory Medicine and Pathology, [facility] in [place], [place] [address] [place] [phone] Harshad Conti M.D. [address] [place] [phone] 04/12/2025 1:30 PM CDT Office Visit Division of Hematology in [place], [place] [address] [place] [phone] Tr Hernandez M.D. [address] [place] [phone] 04/12/2025 3:30 PM CDT Infusion Department of Oncology in [place], [place] [address] [place] [phone] Harshad Conti M.D. [address] [place] [phone] 04/19/2025 10:15 AM CDT Infusion Department of Oncology in [place], [place] [address] [place] [phone] Harshad Conti M.D. [address] [place] [phone] 04/26/2025 10:10 AM CDT Appointment Department of Laboratory Medicine and Pathology, [facility] in [place], [place] [address] [place] [address] Harshad Conti M.D. [address] [place] [phone] 04/26/2025 11:00 AM CDT Nurse Only Division of Hematology in [place], [place] [address] [place] [address] Harshad Conti M.D. [address] [place] [phone] 04/26/2025 12:00 PM CDT Infusion Department of Oncology in [place], [place] [address] [place] [address] Harshad Conti M.D. [address] [place] [phone] 04/26/2025 1:30 PM CDT Appointment Division of Pulmonary Medicine in [place], [place] [address] [place] [address] Harshad Conti M.D. [address] [place] [phone] Discharge Disposition: Home or Self Care 05/03/2025 10:15 AM CDT Infusion Department of Oncology in [place], [place] [address] [place] [address] Harshad Conti M.D. [address] [place] [phone] 05/10/2025 9:40 AM ROUTER OPERATOR PIN Appointment Department of Laboratory Medicine and Pathology, [facility], in [place], [place] [address] [place] [address] Constantin López M.D. [address] [place] [phone] 05/10/2025 11:30 AM ROUTER OPERATOR PIN Office Visit Division of Hematology in [place], [place] [address] [place] [address] Mely Hayden APRN, C.N.P., D.N.P., M.S. [address] [place] [phone] 05/10/2025 1:00 PM ROUTER OPERATOR PIN Infusion Department of Oncology in [place], [place] [address] [place] [phone] Constantin López M.D. [address] [place] [phone] 05/17/2025 10:15 AM ROUTER OPERATOR PIN Infusion Department of Oncology in [place], [place] [address] [place] [address] Constantin López M.D. [address] [place] [phone] 05/24/2025 10:00 AM ROUTER OPERATOR PIN Appointment Department of Laboratory Medicine and Pathology, [facility], in [place], [place] [address] [place] [phone] Constantin López M.D. [address] [place] [phone] 05/24/2025 10:45 AM ROUTER OPERATOR PIN Appointment Division of Pulmonary Medicine in [place], [place] [address] [place] [phone] Harshad Conti M.D. [address] [place] [phone] Discharge Disposition: Home or Self Care 05/24/2025 12:00 PM ROUTER OPERATOR PIN Infusion Department of Oncology in [place], [place] [address] [place] [address] Constantin López M.D. [address] [place] [address] 05/31/2025 10:00 AM ROUTER OPERATOR PIN Infusion Department of Oncology in [place], [place] [address] [place] [address] Constantin López M.D. [address] [place] [address] Scheduled Referrals Name Type Priority Associated Diagnoses Orde r Schedule Palliative Medicine - General consult (clinic) Outpatient Referral Routine Multiple Myeloma Not Having Achieved Remission (HCC) Pain Low Back Unspecified Expected: 02/03/2025, Expires: 05/06/2026 Spine Center - General consult (clinic) Outpatient Referral Routine Multiple Myeloma Not Having Achieved Remission (HCC) Pain Low Back Unspecified Expected: 02/03/2025, Expires: 05/06/2026 documented as of this encounter Results * MR Lumbar Spine without IV Contrast (02/22/2025 2:33 PM CDT) Anatomical Region Laterality Modality Lumbar Spine, Neuroradiology RST [facility], Neuroradiology ARZ [facility], Neuroradiology FLA [facility] N/A Magnetic Resonance Impressions 02/23/2025 10:07 AM CDT 1. Myelomatous changes involving the visualized axial skeleton without epidural or paraspinal soft tissue extension. 2. 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 3. Lumbar spondylosis without focal disc protrusion or spinal stenosis. Narrative 02/23/2025 10:07 AM CDT EXAM: MR LUMBAR SPINE WITHOUT IV CONTRAST COMPARISON: Plain film lumbar spine 02/03/2025. PET/CT 01/20/2025. FINDINGS: Diffuse low T1 and increased T2 signal within the body of L3 with striated appearance on CT 01/17/2025. 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 Schmorl's node involving the superior endplate of L3. In addition, there are punctate foci of low T1 and elevated T2 signal within the visualized lower thoracic and lumbar vertebral body marrow and spinous process of S1 consistent with known multiple myeloma. Mild diffuse lumbar spondylosis without focal disc protrusion or spinal stenosis. Examination is otherwise negative from the mid body of T11-S3. The visualized lower thoracic spinal cord and conus are normal in morphology and signal intensity. Procedure Note Albert Myers M.D. - 02/23/2025 EXAM: MR LUMBAR SPINE WITHOUT IV CONTRAST COMPARISON: Plain film lumbar spine 02/03/2025. PET/CT 01/20/2025. FINDINGS: Diffuse low T1 and increased T2 signal within the body of L3with striated appearance on CT 01/17/2025. Findings are consistent withatypical cavernous malformation. Schmorl's node involving the superiorendplate of L3. In addition, there are punctate foci of low T1 and elevated T2 signalwithin the visualized lower thoracic and lumbar vertebral body marrow andspinous process of S1 consistent with known multiple myeloma. Mild diffuse lumbar spondylosis without focal disc protrusion or spinalstenosis. Examination is otherwise negative from the mid body of T11-S3.The visualized lower thoracic spinal cord and conus are normal inmorphology and signal intensity. IMPRESSION: 1. Myelomatous changes involving the visualized axial skeleton withoutepidural or paraspinal soft tissue extension. 2. 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 3. Lumbar spondylosis without focal disc protrusion or spinal stenosis. us Harshad JUAREZ MRI PROCEDURES Nadia yvonne Result * EMG (02/08/2025 11:42 AM CDT) 02/08/2025 12:3 0 PM CDT Narrative [facility] EMG - 02/08/2025 2:41 PM CDT Table formatting from the original result was not included. 08-Feb-2025 Electromyography Final Report Study Number: 1 EMG Sales Executive: Duran Allan 127 or [phone] Referred by: HARSHAD CONTI (127 or [phone]) Referred for: Back pain, Sciatica Referral Code: 200 RX: 001 SUMMARY: Prior to starting the procedure, the patient's identity was verified, pertinent available records were reviewed, the nature of the procedure was explained, the appropriate sites of the exam were confirmed directly with the patient, and a pre-procedure pause was performed for final verification of all of the above. Nerve conduction studies of the left lower limb revealed low-amplitude fibular motor response. Otherwise, tibial motor and sural sensory responses were within normal limits. Right fibular motor response was normal. Needle EMG of the left lower limb was also normal. CLINICAL INTERPRETATION: This is an essentially normal study. There is no convincing evidence of a left lumbosacral radiculopathy or lower limb mononeuropathy. The low amplitude fibular motor response could be explained by local trauma to the branch that supplies the EDB. I have reviewed the findings of the examining physician and agree with the interpretation. Hanane Lewis/Hanane Allan (127 or [phone])/SMB NERVE CONDUCTIONS Record Rep Normal Normal Distal Normal F-Wave F-Wave Temp Nerve Type Site Stim Side Amp Amp CV CV Lat Lat Lat Est ( C) Fibular Motor EDB L 1.1 (> 2.0) 44 (> 41) 4.0 (< 6.6) 32.5 Fibular Motor EDB R 2.1 (> 2.0) 42 (> 41) 4.2 (< 6.6) 32.0 Tibial Motor AH L 4.6 (> 4.0) 44 (> 40) 3.4 (< 6.1) 32.6 Sural Sensory Ankle L 3 (> 0.0) 43 (> 40) 3.8 (< 4.5) 33.4 NEEDLE EMG Ins Spont MUP Recruitment Duration Amplitude Phases Muscle Side Act Fib Fasc Normal Activ Reduced Rapid Long Short High Low % Turns Gluteus chaitanya L NL 0 0 NL Tensor fasciae latae L NL 0 0 NL Vastus medialis L NL 0 0 NL Gastrocnemius (medial head) L INC +/- 0 NL Tibialis anterior L NL 0 0 NL Peroneus tertius L NL 0 0 NL This interpretation has been electronically signed: Duran Allan M.D. at 02/08/2025 2:41:08 PM CDT Procedure Note Oscar Allan Jr., M.D. - 02/08/2025 08-Feb-2025 Electromyography Final Report Study Number: 1 EMG Sales Executive: Duran Allan 127 or [phone] Referred by: HARSHAD CONTI (127 or [phone]) Referred for: Back pain, Sciatica Referral Code: 200 RX: 001 SUMMARY: Prior to starting the procedure, the patient's identity wasverified, pertinent available records were reviewed, the nature of theprocedure was explained, the appropriate sites of the exam were confirmeddirectly with the patient, and a pre-procedure pause was performed forfinal verification of all of the above. Nerve conduction studies of the left lower limb revealed low-amplitudefibular motor response. Otherwise, tibial motor and sural sensoryresponses were within normal limits. Right fibular motor response wasnormal. Needle EMG of the left lower limb was also normal. CLINICAL INTERPRETATION: This is an essentially normal study. There is noconvincing evidence of a left lumbosacral radiculopathy or lower limbmononeuropathy. The low amplitude fibular motor response could beexplained by local trauma to the branch that supplies the EDB. I have reviewed the findings of the examining physician and agree with theinterpretation. Hanane Lewis/Hanane Allan (127 or [phone])/SMB NERVE CONDUCTIONS Record Rep Normal Normal Distal Normal F-Wave F-Wave Temp Nerve Type Site Stim Side Amp Amp CV CV Lat Lat Lat Est ( C) Fibular Motor EDB L 1.1 (> 2.0) 44 (> 41) 4.0 (< 6.6) 32.5 Fibular Motor EDB R 2.1 (> 2.0) 42 (> 41) 4.2 (< 6.6) 32.0 Tibial Motor AH L 4.6 (> 4.0) 44 (> 40) 3.4 (< 6.1) 32.6 Sural Sensory Ankle L 3 (> 0.0) 43 (> 40) 3.8 (< 4.5) 33.4 NEEDLE EMG Ins Spont MUP Recruitment Duration Amplitude Phases Muscle Side Act Fib Fasc Normal Activ Reduced Rapid Long Short High Low %Turns Gluteus chaitanya L NL 0 0 NL Tensor fasciae latae L NL 0 0 NL Vastus medialis L NL 0 0 NL Gastrocnemius (medial head) L INC +/- 0 NL Tibialis anterior L NL 0 0 NL Peroneus tertius L NL 0 0 NL This interpretation has been electronically signed: Duran Allan M.D. at 02/08/2025 2:41:08 PM CDT Harshad Conti M.D. NEUROLOGY ORDERABLES Ed ited Result - Final EMG * DX Lumbar Spine 2-3 Views (02/03/2025 10:45 AM CDT) Anatomical Region Laterality Modality Lumbar Spine, Musculoskeleta l RST LOS, Neuroradiology ARZ LOS, Muskuloskeletal FLA LOS N/A Digital Radiography Impressions 02/03/2025 10:59 AM CDT Scattered vague lytic lesions throughout the visualized bones in keeping with known multiple myeloma. No significant pathologic compression. Convex left thoracolumbar curve. Degenerative arthritis lower lumbar facet joints. Degenerative changes both sacroiliac and hip joints. Narrative 02/03/2025 10:59 AM CDT EXAM: DX LUMBAR SPINE 2-3 VIEWS Procedure Note Osmany Lake M.D. - 02/03/2025 EXAM: DX LUMBAR SPINE 2-3 VIEWS IMPRESSION: Scattered vague lytic lesions throughout the visualized bones in keepingwith known multiple myeloma. No significant pathologic compression. Convexleft thoracolumbar curve. Degenerative arthritis lower lumbar facetjoints. Degenerative changes both sacroiliac and hip joints. us Harshad Conti M.D. IMG DIAGNOSTIC IMAGING PROCEDURES Final Result * (ABNORMAL) Immunoglobulin Free Light Chains (02/03/2025 9:13 AM CDT) [place] Free Light Chain, S 282(H) 0.3300 - 1.94 mg/dL 02/03/2025 1:08 PM CDT SDS Lambda Free Light Chain, S 0.1800(L) 0.5700 - 2.63 mg/dL 02/03/2025 12:[address] [facility] [place]/Lambda FLC Ratio >1000(H) 0.2600 - 1.65 02/03/2025 1:[address] [facility] Blood (Blood, Venous) 02/03/2025 9:13 AM CDT 02/03/2025 12:00 PM CDT Harshad Conti M.D. LAB BLOOD ADD-ON Final Result [facility] [address] [place] [address] [facility] [address] [place] [address] * (ABNORMAL) Basic Metabolic Panel (02/03/2025 9:13 AM CDT) Pathologist [facility] Potassium, S 4.1 3.6 - 5.2 mmol/L [...] CDT 02/03/2025 9:34 AM CDT us Harshad Conti M.D. LAB BLOOD ADD-ON Final Result Performing Organization Address City/[facility]/ZIP Co de Phone Number [facility] [address] [place] [address], [facility] [address] [place] [address] * LD (Lactate Dehydrogenase) (02/03/2025 9:13 AM CDT) Lactate Dehydrogenase (LD), S 141 122 - 222 U/L 02/03/2025 10:17 AM CDT DTL Blood (Blood, Venous) 02/03/2025 9:13 AM CDT 02/03/2025 9:34 AM CDT us Harshad Conti M.D. LAB BLOOD NON ADD-ON Fi nal Result Performing Organization Address [facility]/ZIP Co de Phone Number [facility] [address] [place] [address], [facility] [address] [place] [address] documented in this encounter Visit Diagnoses Diagnosis Multiple Myeloma Not Having Achieved Remission (HCC)- Primary Pain Low Back Unspecified Multiple Myeloma Not Having Achieved Remission (HCC) Pain Low Back Unspecified Multiple Myeloma Not Having Achieved Remission (HCC) Pain Low Back Unspecified Pain Low Back Unspecified documented in this encounter Additional Health Concerns Infection Onset Date Last Indicated Resolved Time Protective Environment 01/27/2025 01/27/2025 documented as of this encounter
--- OUTSIDE RECORDS SUMMARY | 2025-02-03 10:33 | XMS_ITS | Encounter Summary ---
Author Organization [facility] Address [address] [place] [address] Care Team Providers Care Encoding Clerk Name Role Phone Unavailable Primary Care Provider Unavailabl e Reason for Referral * Outpatient (Routine) - Closed Specialty Diagnoses / Procedures Referred By Teresa carvalho Referred To Contact Diagnoses Multiple Myeloma Not Having Achieved Remission (HCC) Pain Low Back Unspecified Procedures DX Lumbar Spine 2-3 Views Harshad Perez M.D. [address] [place] [address] Phone: tel: fax: [facility] Referral ID Status Reason Start Date Expiration Date Visits Re quested Visits Authorized [id number] Closed 02/03/2025 05/06/2026 1 1 Reason for Visit * Outpatient (Routine) - Closed Specialty Diagnoses / Procedures Referred By Teresa carvalho Referred To Contact Diagnoses Multiple Myeloma Not Having Achieved Remission (HCC) Pain Low Back Unspecified Procedures DX Lumbar Spine 2-3 Views Harshad Perez M.D. [address] [place] [address] Phone: tel:[phone] fax: [facility] Referral ID Status Reason Start Date Expiration Date Visits Re quested Visits Authorized [id number] Closed 02/03/2025 05/06/2026 1 1 Encounter Details Date Type Department Care Team (Latest Contact Info) Description 02/03/2025 10:33 AM CDT - 02/03/2025 12:23 PM CDT Hospital Encounter Department of Radiology, [facility], in [place], [place] [address] [place] [address] Harshad Perez M.D. [address] [place] [address] Multiple Myeloma Not Having Achieved Remission (HCC); Pain Low Back Unspecified Discharge Disposition: Home or Self Care Social [...] things needed for daily living? No 01/27/2025 [facility] Utilities Answer Date Recorded In the past 12 months has e electric, gas, oil, or water company threatened to shut off services in your home? No 01/27/2025 Housing Stability Answer Date Recorded What is your living situation today? I have a [facility] place to live 01/27/2025 Sex and Gender Information Value Date Recorded Sex Assigned at Male 01/27/2025 2:34 PM CDT Legal Sex Male 6:33 AM CAN TECHNICIAN Gender Identity Male 01/27/2025 2:34 PM [...] Appointment Department of Laboratory Medicine and Pathology, [facility] in [place], [place] [address] [place] [phone] Constantin López M.D. [address] [place] [phone] 03/08/2025 8:45 AM CDT Infusion Department of Oncology in [place], [place] [address] [place] [address] Constantin López M.D. [address] [place] [phone] 03/08/2025 10:30 AM CDT Comprehensive Visit Department of Vascular Medicine in [place], [place] [address] [place] [phone] Vic Flores M.D. [address] [place] [phone] 03/11/2025 12:30 PM CDT Diagnostic Division of Pulmonary Medicine in [place], [place] [address] [place] [phone] Constantin López M.D. [address] [place] [phone] 03/11/2025 2:00 PM CDT Appointment Department of Vascular Medicine in [place], [place] [address] [place] [address] Constantin López M.D. [address] [place] [phone] Discharge Disposition: Home or Self Care 03/15/2025 9:00 AM CDT Comprehensive Visit Department of Spine in [place], [place] [address] [place] [address] Hebert Francis APRN, C.N.P., M.S.N. [address] [place] [phone] 03/15/2025 12:30 PM CDT Appointment Department of Laboratory Medicine and Pathology, [facility], in [place], [place] [address] [place] [address] Harshad Perez M.D. [address] [place] [phone] 03/15/2025 2:30 PM CDT Office Visit Division of Hematology in [place], [place] [address] [place] [phone] Mely Hayden APRN, C.N.P., D.N.P., M.S. [address] [place] [phone] 03/15/2025 4:00 PM CDT Infusion Department of Oncology in [place], [place] [address] [place] [phone] Harshad Perez M.D. [address] [place] [phone] 03/16/2025 1:30 PM CDT Comprehensive Visit Division of Pulmonary Medicine in [place], [place] [address] [place] [phone] Morgan Peck M.D. [address] [place] [phone] 03/22/2025 11:10 AM CDT Appointment Department of Laboratory Medicine and Pathology, [facility] in [place], [place] [address] [place] [address] Harshad Perez M.D. [address] [place] [phone] 03/22/2025 1:00 PM CDT Infusion Department of Oncology in [place], [place] [address] [place] [address] Harshad Perez M.D. [address] [place] [phone] 03/29/2025 9:15 AM CDT Appointment Division of Pulmonary Medicine in [place], [place] [address] [place] [phone] Harshad Perez M.D. [address] [place] [phone] Discharge Disposition: Home or Self Care 03/29/2025 10:30 AM CDT Appointment Department of Laboratory Medicine and Pathology, [facility], in [place], [place] [address] [place] [address] Harshad Perez M.D. [address] [place] [phone] 03/29/2025 11:15 AM CDT Nurse Only Division of Hematology in [place], [place] [address] [place] [address] Harshad Perez M.D. [address] [place] [phone] 03/29/2025 1:30 PM CDT Infusion Department of Oncology in [place], [place] [address] [place] [address] Harshad Perez M.D. [address] [place] [phone] 04/05/2025 10:10 AM CDT Appointment Department of Laboratory Medicine and Pathology, [facility] in [place], [place] [address] [place] [phone] Harshad Perez M.D. [address] [place] [phone] 04/05/2025 12:00 PM CDT Infusion Department of Oncology in [place], [place] [address] [place] [phone] Harshad Perez M.D. [address] [place] [phone] 04/12/2025 11:40 AM CDT Appointment Department of Laboratory Medicine and Pathology, [facility] in [place], [place] [address] [place] [address] Harshad Perez M.D. [address] [place] [phone] 04/12/2025 1:30 PM CDT Office Visit Division of Hematology in [place], [place] [address] [place] [phone] Tr Hernandez M.D. [address] [place] [phone] 04/12/2025 3:30 PM CDT Infusion Department of Oncology in [place], [place] [address] [place] [address] Harshad Perez M.D. [address] [place] [phone] 04/19/2025 10:15 AM CDT Infusion Department of Oncology in [place], [place] [address] [place] [address] Harshad Perez M.D. [address] [place] [phone] 04/26/2025 10:10 AM CDT Appointment Department of Laboratory Medicine and Pathology, [facility] in [place], [place] [address] [place] [address] Harshad Perez M.D. [address] [place] [phone] 04/26/2025 11:00 AM CDT Nurse Only Division of Hematology in [place], [place] [address] [place] [phone] Harshad Perez M.D. [address] [place] [phone] 04/26/2025 12:00 PM CDT Infusion Department of Oncology in [place], [place] [address] [place] [address] Harshad Perez M.D. [address] [place] [phone] 04/26/2025 1:30 PM CDT Appointment Division of Pulmonary Medicine in [place], [place] [address] [place] [address] Harshad Perez M.D. [address] [place] [phone] Discharge Disposition: Home or Self Care 05/03/2025 10:15 AM CDT Infusion Department of Oncology in [place], [place] [address] [place] [phone] Harshad Perez M.D. [address] [place] [phone] 05/10/2025 9:40 AM CAN TECHNICIAN Appointment Department of Laboratory Medicine and Pathology, [place], [place] [address] [place] [phone] Constantin López M.D. [address] [place] [phone] 05/10/2025 11:30 AM CAN TECHNICIAN Office Visit Division of Hematology in [place], [place] [address] [place] [phone] Mely Hayden, ANY, C.N.P., D.N.P., M.S. [address] [place] [phone] 05/10/2025 1:00 PM CAN TECHNICIAN Infusion Department of Oncology in [place], [place] [address] [place] [phone] Constantin López M.D. [address] [place] [phone] 05/17/2025 10:15 AM CAN TECHNICIAN Infusion Department of Oncology in [place], [place] [address] [place] [phone] Constantin López M.D. [address] [place] [phone] 05/24/2025 10:00 AM CAN TECHNICIAN Appointment Department of Laboratory Medicine and Pathology, [facility] in [place], [place] [address] [place] [phone] Constantin López M.D. [address] [place] [phone] 05/24/2025 10:45 AM CAN TECHNICIAN Appointment Division of Pulmonary Medicine in [place], [place] [address] [place] [phone] Harshad Perez M.D. [address] [place] [phone] Discharge Disposition: Home or Self Care 05/24/2025 12:00 PM CAN TECHNICIAN Infusion Department of Oncology in [place], [place] [address] [place] [phone] Constantin López M.D. [address] [place] [phone] 05/31/2025 10:00 AM CAN TECHNICIAN Infusion Department of Oncology in [place], [place] [address] [place] [phone] Constantin López M.D. [address] [place] [phone] documented as of this encounter Procedures Procedure Name Priority Date/Time Associated Diagnosis Comments DX LUMBAR SPINE 2-3 VIEWS RAD - Routine (most inpatients and all outpatients) 02/03/2025 10:45 AM CDT Multiple Myeloma Not Having Achieved Remission (HCC) Pain Low Back Unspecified documented in this encounter Results * DX Lumbar Spine 2-3 Views (02/03/2025 [...] Degenerative changes both sacroiliac and hip joints. Harshad Perez M.D. [facility] Final Result documented in this encounter Visit Diagnoses Diagnosis Multiple Myeloma Not Having Achieved Remission (HCC) Pain Low Back Unspecified documented in this encounter Additional Health Concerns Infection Onset Date Last Indicated Resolved Time Protective Environment 01/27/2025 01/27/2025 documented as of this encounter
--- OUTSIDE RECORDS SUMMARY | 2025-02-03 12:24 | XMS_ITS | Encounter Summary ---
Author Organization [facility] Address [address] [place] [address] Care Team Providers Care Job Setter Honing Name Role Phone Unavailable Primary Care Provider Unavailabl e Encounter Details Date Type Department Care Team (Latest Contact Info) Description 02/03/2025 12:24 PM CDT - 02/03/2025 11:59 PM CDT Hospital Encounter Division of Pulmonary Medicine in [place], [place] [address] [place] [address] Harshad Perez M.D. [address] [place] [address] Multiple Myeloma Not Having Achieved Remission (HCC) (Primary Dx) Discharge Disposition: Home or Self Care Social [...] things needed for daily living? No 01/27/2025 [facility] Utilities Answer Date Recorded In the past 12 months has [facility] [email or web address], gas, oil, or water [employer] threatened to shut off services in your home? No 01/27/2025 Housing Stability Answer Date Recorded What is your living situation today? I have a [facility] place to live 01/27/2025 Sex and Gender Information Value Date Recorded Sex Assigned at Male 01/27/2025 2:34 PM CDT Legal Sex Male 6:33 AM DROP HAMMER SET UP OPERATOR Gender Identity Male 01/27/2025 2:34 PM CDT Sexual Orientation Straight 01/27/2025 2: 34 PM CDT documented as of this encounter Last Filed Vital Signs Vital Sign Reading Time Taken Comments Blood Pressure - - Pulse 97 02/03/2025 12:44 PM CDT Temperature - - Respiratory Rate - - Oxygen Saturation 97% 02/03/2025 12:44 PM CDT Inhaled Oxygen Concentration - - Weight - - Height - - Body Mass Index - - documented in this encounter Medications at Time of Discharge [...] 01/28/2025 5 documented as of this encounter Progress Notes * Ciaran Chance, R.R.T., L.R.T. - 02/03/2025 12:45 PM CDT Mr. Joey Laird arrived in [facility] for out-patient Pentamidine treatment. Pre-treated with albuterol nebulizer, patient tolerated well. Aerosol generating procedure done wearing N95 mask. Electronically signed by: Ciaran Chance R.R.T., [place] 02/03/25 12:45 PM CDT documented in this encounter Plan of Treatment Upcoming Encounters Date Type Department Care Team (Latest Contact Info) Description 03/08/2025 8:00 AM CDT Appointment Department of Laboratory Medicine and Pathology, [facility] in [place], [place] [address] [place] [phone] Constantin López M.D. [address] [place] [phone] 03/08/2025 8:45 AM CDT Infusion Department of Oncology in [place], [place] [address] [place] [phone] Constantin López M.D. [address] [place] [phone] 03/08/2025 10:30 AM CDT Comprehensive Visit Department of Vascular Medicine in [place], [place] [address] [place] [phone] Vic Flores M.D. [address] [place] [phone] 03/11/2025 12:30 PM CDT Diagnostic Division of Pulmonary Medicine in [place], [place] [address] [place] [phone] Constantin López M.D. [address] [place] [phone] 03/11/2025 2:00 PM CDT Appointment Department of Vascular Medicine in [place], [place] [address] [place] [phone] Constantin López M.D. [address] [place] [phone] Discharge Disposition: Home or Self Care 03/15/2025 9:00 AM CDT Comprehensive Visit Department of Spine in [place], [place] [address] [place] [phone] Hebert Francis APRN, C.N.P., M.S.N. [address] [place] [phone] 03/15/2025 12:30 PM CDT Appointment Department of Laboratory Medicine and Pathology, [facility] in [place], [place] [address] [place] [phone] Harshad Perez M.D. [address] [place] [phone] 03/15/2025 2:30 PM CDT Office Visit Division of Hematology in [place], [place] [address] [place] [phone] Mely Hayden, ANY, C.N.P., D.N.P., M.S. [address] [place] [phone] 03/15/2025 4:00 PM CDT Infusion Department of Oncology in [place], [place] [address] [place] [phone] Harshad Perez M.D. [address] [place] [phone] 03/16/2025 1:30 PM CDT Comprehensive Visit Division of Pulmonary Medicine in [place], [place] [address] [place] [phone] Morgan Peck M.D. [address] [place] [phone] 03/22/2025 11:10 AM CDT Appointment Department of Laboratory Medicine and Pathology, [facility], in [place], [place] [address] [place] [phone] Harshad Perez M.D. [address] [place] [phone] 03/22/2025 1:00 PM CDT Infusion Department of Oncology in [place], [place] [address] [place] [phone] Harshad Perez M.D. [address] [place] [phone] 03/29/2025 9:15 AM CDT Appointment Division of Pulmonary Medicine in [place], [place] [address] [place] [phone] Harshad Perez M.D. [address] [place] [phone] Discharge Disposition: Home or Self Care 03/29/2025 10:30 AM CDT Appointment Department of Laboratory Medicine and Pathology, [facility], in [place], [place] [address] [place] [phone] Harshad Perez M.D. [address] [place] [phone] 03/29/2025 11:15 AM CDT Nurse Only Division of Hematology in [place], [place] [address] [place] [phone] Harshad Perez M.D. [address] [place] [phone] 03/29/2025 1:30 PM CDT Infusion Department of Oncology in [place], [place] [address] [place] [phone] Harshad Perez M.D. [address] [place] [phone] 04/05/2025 10:10 AM CDT Appointment Department of Laboratory Medicine and Pathology, [facility] in [place], [place] [address] [place] [phone] Harshad Perez M.D. [address] [place] [phone] 04/05/2025 12:00 PM CDT Infusion Department of Oncology in [place], [place] [address] [place] [phone] Harshad Perez M.D. [address] [place] [phone] 04/12/2025 11:40 AM CDT Appointment Department of Laboratory Medicine and Pathology, [facility] in [place], [place] [address] [place] [phone] Harshad Perez M.D. [address] [place] [phone] 04/12/2025 1:30 PM CDT Office Visit Division of Hematology in [address] [phone] Tr Hernandez M.D. [address] [place] [phone] 04/12/2025 3:30 PM CDT Infusion Department of Oncology in [place], [place] [address] [place] [phone] Harshad Perez M.D. [address] [place] [phone] 04/19/2025 10:15 AM CDT Infusion Department of Oncology in [place], [place] [address] [place] [phone] Harshad Perez M.D. [address] [place] [phone] 04/26/2025 10:10 AM CDT Appointment Department of Laboratory Medicine and Pathology, [facility] in [place], [place] [address] [place] [address] Harshad Perez M.D. [address] [place] [phone] 04/26/2025 11:00 AM CDT Nurse Only Division of Hematology in [place], [place] [address] [place] [phone] Harshad Perez M.D. [address] [place] [phone] 04/26/2025 12:00 PM CDT Infusion Department of Oncology in [place], [place] [address] [place] [address] Harshad Perez M.D. [address] [place] [phone] 04/26/2025 1:30 PM CDT Appointment Division of Pulmonary Medicine in [place], [place] [address] [place] [phone] Harshad Perez M.D. [address] [place] [phone] Discharge Disposition: Home or Self Care 05/03/2025 10:15 AM CDT Infusion Department of Oncology in [place], [place] [address] [place] [address] KoHarshad high M.D. [address] [place] [phone] 05/10/2025 9:40 AM DROP HAMMER SET UP OPERATOR Appointment Department of Laboratory Medicine and Pathology, [facility] in [place], [place] [address] [place] [phone] Constantin López M.D. [address] [place] [phone] 05/10/2025 11:30 AM DROP HAMMER SET UP OPERATOR Office Visit Division of Hematology in [place], [place] [address] [place] [phone] Mely Hayden APRN, C.N.P., D.N.P., M.S. [address] [place] [phone] 05/10/2025 1:00 PM DROP HAMMER SET UP OPERATOR Infusion Department of Oncology in [place], [place] [address] [place] [phone] Constantin López M.D. [address] [place] [phone] 05/17/2025 10:15 AM DROP HAMMER SET UP OPERATOR Infusion Department of Oncology in [place], [place] [address] [place] [phone] Constantin López M.D. [address] [place] [phone] 05/24/2025 10:00 AM DROP HAMMER SET UP OPERATOR Appointment Department of Laboratory Medicine and Pathology, [facility], in [place], [place] [address] [place] [phone] Constantin López M.D. [address] [place] [phone] 05/24/2025 10:45 AM DROP HAMMER SET UP OPERATOR Appointment Division of Pulmonary Medicine in [place], [place] [address] [place] [address] Harshad Perez M.D. [address] [place] [phone] Discharge Disposition: Home or Self Care 05/24/2025 12:00 PM DROP HAMMER SET UP OPERATOR Infusion Department of Oncology in [place], [place] [address] [place] [address] Constantin López M.D. [address] [place] [phone] 05/31/2025 10:00 AM DROP HAMMER SET UP OPERATOR Infusion Department of Oncology in [place], [place] [address] [place] [address] Constantin López M.D. [address] [place] [phone] Scheduled Orders Name Type Priority Associated Diagnoses Orde r Schedule Nebulized Pentamidine PFT Routine Multiple Myeloma Not Having Achieved Remission (HCC) Once for 1 Occurrences starting 02/03/2025 until 02/03/2025 documented as of this encounter Visit Diagnoses Diagnosis Multiple Myeloma Not Having Achieved Remission (HCC)- Primary documented in this encounter Administered Medications Inactive Administered Medications - up to 3 most recent administrations Medication Order MAR Action Action Date Dose Rate Site albuterol nebulizer solution 2.5 mg 2.5 mg, nebulization, Once, On Fri02/03/25 at 1300, For 1 doseIndications:Multiple Myeloma Not Having Achieved Remission (HCC) Given 02/03/2025 12:30 PM CDT 2.5 mg pentamidine nebulizer solution (Nebupent) 300 mg (Nebupent) 300 mg, inhalation, Once, On Fri02/03/25 at 1300, For 1 dose, Requires Respirgard II nebulizer If dispensed as powder vial, reconstitute each 300 mg vial with 6 mL SWFI to a final concentration of 50 mg/mL, using an 18 gauge needle. For INHALATION only. Protect from light, Indications: Prophylaxis, medicalIndications:Prophylaxis, medical Given 02/03/2025 12:30 PM CDT 300 mg documented in this encounter Additional Health Concerns Infection Onset Date Last Indicated Resolved Time Protective Environment 01/27/2025 01/27/2025 documented as of this encounter
--- OUTSIDE RECORDS SUMMARY | 2025-02-08 11:42 | XMS_ITS | Encounter Summary ---
Author Organization [facility] Address [address] [place] [address] Care Team Providers Care Grinding Supervisor Name Role Phone Unavailable Primary Care Provider Unavailabl e Reason for Referral * Outpatient (Routine) - Closed Specialty Diagnoses / Procedures Referred By Teresa carvalho Referred To Contact Diagnoses Multiple Myeloma Not Having Achieved Remission (HCC) Pain Low Back Unspecified Procedures EMG RI EMG NDL NON-EXT W NRV Harshad Stevens M.D. [address] [place] [address] Phone: tel:[phone] fax: [facility] Referral ID Status Reason Start Date Expiration Date Visits Re quested Visits Authorized [id number] Closed 02/03/2025 05/06/2026 1 1 Reason for Visit * Outpatient (Routine) - Closed Specialty Diagnoses / Procedures Referred By Teresa carvalho Referred To Contact Diagnoses Multiple Myeloma Not Having Achieved Remission (HCC) Pain Low Back Unspecified Procedures EMG RI EMG NDL NON-EXT W NRV Harshad Stevens M.D. [address] [place] [address] Phone: tel:[phone] fax: [facility] Referral ID Status Reason Start Date Expiration Date Visits Re quested Visits Authorized [id number] Closed 02/03/2025 05/06/2026 1 1 Encounter Details Date Type Department Care Team (Latest Contact Info) Description 02/08/2025 11:42 AM CDT - 02/08/2025 11:59 PM CDT Hospital Encounter Department of Neurology in [place], [place] [address] [place] [address] Harshad Conti M.D. [address] [place] [address] Multiple Myeloma Not Having Achieved Remission (HCC); [...] things needed for daily living? No 01/27/2025 [facility] Utilities Answer Date Recorded In the past 12 months has e electric, gas, oil, or water company threatened to shut off services in your home? No 01/27/2025 Housing Stability Answer Date Recorded What is your living situation today? I have a [facility] place to live 01/27/2025 Sex and Gender Information Value Date Recorded Sex Assigned at Male 01/27/2025 2:34 PM CDT Legal Sex Male 6:33 AM COMPUTER SUPPORT TECHNICIAN Gender Identity Male 01/27/2025 2:34 PM [...] Medicine and Pathology, [facility] in [place], [place] [address] [place] [phone] Constantin López M.D. [address] [place] [phone] 03/08/2025 8:45 AM CDT Infusion Department of Oncology in [place], [place] [address] [place] [phone] Constantin López M.D. [address] [place] [phone] 03/08/2025 10:30 AM CDT Comprehensive Visit Department of Vascular Medicine in [place], [place] [address] [place] [phone] Vic Flores M.D. [address] [place] [phone] 03/11/2025 12:30 PM CDT Diagnostic Division of Pulmonary Medicine in [place], [place] [address] [place] [address] [place] [address] Constantin López M.D. [address] [place] [phone] 03/11/2025 2:00 PM CDT Appointment Department of Vascular Medicine in [place], [place] [address] [place] [phone] Constantin López M.D. [address] [place] [phone] Discharge Disposition: Home or Self Care 03/15/2025 9:00 AM CDT Comprehensive Visit Department of Spine in [place], [place] [address] [place] [address] Hebert Francis APRN, C.N.P., M.S.N. [address] [place] [phone] 03/15/2025 12:30 PM CDT Appointment Department of Laboratory Medicine and Pathology, [facility] in [place], [place] [address] [place] [phone] Harshad Conti M.D. [address] [place] [phone] 03/15/2025 2:30 PM CDT Office Visit Division of Hematology in [place], [place] [address] [place] [phone] Mely Hyaden APRN, C.N.P., D.N.P., M.S. [address] [place] [phone] 03/15/2025 4:00 PM CDT Infusion Department of Oncology in [place], [place] [address] [place] [address] Harshad Conti M.D. [address] [place] [phone] 03/16/2025 1:30 PM CDT Comprehensive Visit Division of Pulmonary Medicine in [place], [place] [address] [place] [phone] Morgan Peck M.D. [address] [place] [phone] 03/22/2025 11:10 AM CDT Appointment Department of Laboratory Medicine and Pathology, [facility] in [place], [place] [address] [place] [address] Harshad Conti M.D. [address] [place] [phone] 03/22/2025 1:00 PM CDT Infusion Department of Oncology in [place], [place] [address] [place] [address] Harshad Conti M.D. [address] [place] [phone] 03/29/2025 9:15 AM CDT Appointment Division of Pulmonary Medicine in [place], [place] [address] [place] [phone] Harshad Conti M.D. [address] [place] [phone] Discharge Disposition: Home or Self Care 03/29/2025 10:30 AM CDT Appointment Department of Laboratory Medicine and Pathology, [facility], in [place], [place] [address] [place] [phone] Harshad Conti M.D. [address] [place] [phone] 03/29/2025 11:15 AM CDT Nurse Only Division of Hematology in [place], [place] [address] [place] [phone] Harshad Conti M.D. [address] [place] [phone] 03/29/2025 1:30 PM CDT Infusion Department of Oncology in [place], [place] [address] [place] [address] Harshad Conti M.D. [address] [place] [phone] 04/05/2025 10:10 AM CDT Appointment Department of Laboratory Medicine and Pathology, [facility] in [place], [place] [address] [place] [address] Harshad Conti M.D. [address] [place] [phone] 04/05/2025 12:00 PM CDT Infusion Department of Oncology in [place], [place] [address] [place] [address] Harshad Conti M.D. [address] [place] [phone] 04/12/2025 11:40 AM CDT Appointment Department of Laboratory Medicine and Pathology, [facility] in [place], [place] [address] [place] [address] Harshad Conti M.D. [address] [place] [phone] 04/12/2025 1:30 PM CDT Office Visit Division of Hematology in [place], [place] [address] [place] [phone] Tr Hernandez M.D. [address] [place] [phone] 04/12/2025 3:30 PM CDT Infusion Department of Oncology in [place], [place] [address] [place] [address] Harshad Conti M.D. [address] [place] [phone] 04/19/2025 10:15 AM CDT Infusion Department of Oncology in [place], [place] [address] [place] [address] Harshad Conti M.D. [address] [place] [phone] 04/26/2025 10:10 AM CDT Appointment Department of Laboratory Medicine and Pathology, [facility] in [place], [place] [address] [place] [address] Harshad Conti M.D. [address] [place] [phone] 04/26/2025 11:00 AM CDT Nurse Only Division of Hematology in [place], [place] [address] [place] [phone] Harshad Conti M.D. [address] [place] [phone] 04/26/2025 12:00 PM CDT Infusion Department of Oncology in [place], [place] [address] [place] [address] Harshad Conti M.D. [address] [place] [phone] 04/26/2025 1:30 PM CDT Appointment Division of Pulmonary Medicine in [place], [place] [address] [place] [phone] Harshad Conti M.D. [address] [place] [phone] Discharge Disposition: Home or Self Care 05/03/2025 10:15 AM CDT Infusion Department of Oncology in [place], [place] [address] [place] [phone] Harshad Conti M.D. [address] [place] [phone] 05/10/2025 9:40 AM COMPUTER SUPPORT TECHNICIAN Appointment Department of Laboratory Medicine and Pathology, [place], [place] [address] [place] [phone] Constantin López M.D. [address] [place] [phone] 05/10/2025 11:30 AM COMPUTER SUPPORT TECHNICIAN Office Visit Division of Hematology in [place], [place] [address] [place] [phone] Mely Hayden APRN, C.N.P., D.N.P., M.S. [address] [place] [phone] 05/10/2025 1:00 PM COMPUTER SUPPORT TECHNICIAN Infusion Department of Oncology in [address] [phone] Constantin López M.D. [address] [place] [phone] 05/17/2025 10:15 AM COMPUTER SUPPORT TECHNICIAN Infusion Department of Oncology in [place], [place] [address] [place] [phone] Constantin López M.D. [address] [place] [phone] 05/24/2025 10:00 AM COMPUTER SUPPORT TECHNICIAN Appointment Department of Laboratory Medicine and Pathology, [facility] in [place], [place] [address] [place] [phone] Constantin López M.D. [address] [place] [phone] 05/24/2025 10:45 AM COMPUTER SUPPORT TECHNICIAN Appointment Division of Pulmonary Medicine in [place], [place] [address] [place] [phone] Harshad Conti M.D. [address] [place] [phone] Discharge Disposition: Home or Self Care 05/24/2025 12:00 PM COMPUTER SUPPORT TECHNICIAN Infusion Department of Oncology in [place], [place] [address] [place] [phone] Constantin López M.D. [address] [place] [phone] 05/31/2025 10:00 AM COMPUTER SUPPORT TECHNICIAN Infusion Department of Oncology in [place], [place] [address] [place] [address] Constantin López M.D. [address] [place] [phone] documented as of this encounter Procedures Procedure Name Priority Date/Time Associated Diagnosis Comments EMG Routine 02/08/2025 11:42 AM CDT Multiple Myeloma Not Having Achieved Remission (HCC) Pain Low Back Unspecified documented in this encounter Results * EMG (02/08/2025 11:42 AM CDT) 02/08/2025 12:3 0 PM CDT Narrative EMG - 02/08/2025 2:41 PM CDT Table formatting from the original result was not included. 08-Feb-2025 Electromyography Final Report Study Number: 1 EMG Greens Picker: Duran Allan 127 or [phone] Referred by: HARSHAD CONTI (127 or [phone]) Referred for: Back pain, Sciatica Referral Code: [...] the interpretation. Hanane Lewis/Hanane Allan (127 or [phone])/SMB NERVE CONDUCTIONS Record Rep Normal Normal Distal [...] Electromyography Final Report Study Number: 1 EMG Greens Picker: Duran Allan 127 or [phone] Referred by: HARSHAD CONTI (127 or [phone]) Referred for: Back pain, Sciatica Referral Code: [...] with theinterpretation. Hanane Lewis/Hanane Allan (127 or [phone])/SMB NERVE CONDUCTIONS Record Rep Normal Normal Distal [...] ORDERABLES Ed ited Result - Final EMG documented in this encounter Visit Diagnoses Diagnosis Multiple Myeloma Not Having Achieved Remission (HCC) Pain Low Back Unspecified documented in this encounter Additional Health Concerns Infection Onset Date Last Indicated Resolved Time Protective Environment 01/27/2025 01/27/2025 documented as of this encounter
--- OUTSIDE RECORDS SUMMARY | 2025-02-08 15:30 | XMS_ITS | Encounter Summary ---
Author Organization [facility] Address [address] [place] [id number] Care Team Providers Care Switch Adjuster Name Role Phone Unavailable Primary Care Provider Unavailabl e Reason for Visit * Episode Based Medications (Priority-Phone Follow-up) - Closed Specialty Diagnoses / Procedures Referred By Teresa t Referred To Contact Diagnoses Multiple Myeloma Not Having Achieved Remission (HCC) Procedures TN DARATUMUMAB, HYALURONIDASE TN BORTEZOMIB INJECTION Harshad Perez M.D. [address] [place] [address] Phone: tel: fax: Division of Hematology in [place], [place] [address] [place] [address] Phone: tel: Referral ID Status Reason Start Date Expiration Date Visits Re quested Visits Authorized [id number] Closed 01/27/2025 04/29/2026 99 99 Encounter Details Date Type Department Care Team (Late st Contact Info) Description 02/08/2025 3:30 PM CDT Infusion Department of Oncology in [place], [place] [address] [place] [phone] Harshad Perez M.D. [address] [place] [phone] Multiple Myeloma Not Having Achieved Remission (HCC) [...] things needed for daily living? No 01/27/2025 [facility] Utilities Answer Date Recorded In the past 12 months has [employer] electric, gas, oil, or water company threatened to shut off services in your home? No 01/27/2025 Housing Stability Answer Date Recorded What is your living situation today? I have a [facility] place to live 01/27/2025 Sex and Gender Information Value Date Recorded Sex Assigned at Male 01/27/2025 2:34 PM CDT Legal Sex Male 6:33 AM [employer] Gender Identity Male 01/27/2025 2:34 PM CDT Sexual Orientation Straight 01/27/2025 2: 34 PM CDT documented as of this encounter Last Filed Vital Signs Vital Sign Reading Time Taken Comments Blood Pressure 111/76 02/08/2025 3:28 PM CDT Pulse 77 02/08/2025 3:28 PM CDT Temperature 36.5 C (97.7 F) 02/08/2025 3:28 PM CDT Respiratory Rate - - Oxygen Saturation - - Inhaled Oxygen Concentration - - Weight 74.8 kg (164 lb 14.5 oz) 02/08/2025 3:28 PM CDT Height - - Body Mass Index 25.08 02/03/2025 9:32 AM CDT documented in this encounter Plan of Treatment Upcoming Encounters Date Type Department Care Team (Latest Contact Info) Description 03/08/2025 8:00 AM CDT Appointment Department of Laboratory Medicine and Pathology, [facility] in [place], [place] [address] [place] [phone] Constantin López M.D. [address] [place] [phone] 03/08/2025 8:45 AM CDT Infusion Department of Oncology in [place], [place] [address] [place] [phone] Constantin López M.D. [address] [place] [phone] 03/08/2025 10:30 AM CDT Comprehensive Visit Department of Vascular Medicine in [place], [place] [address] [place] [phone] Vic Flores M.D. [address] [place] [phone] 03/11/2025 12:30 PM CDT Diagnostic Division of Pulmonary Medicine in [place], [place] [address] [place] [phone] Constantin López M.D. [address] [place] [phone] 03/11/2025 2:00 PM CDT Appointment Department of Vascular Medicine in [place], [place] [address] [place] [phone] Constantin López M.D. [address] [place] [phone] Discharge Disposition: Home or Self Care 03/15/2025 9:00 AM CDT Comprehensive Visit Department of Spine in [place], [place] [address] [place] [phone] Hebert Francis APRN, Mavis.N.P., M.S.N. [address] [place] [phone] 03/15/2025 12:30 PM CDT Appointment Department of Laboratory Medicine and Pathology, [facility] in [place], [place] [address] [place] [address] Harshad Perez M.D. [address] [place] [phone] 03/15/2025 2:30 PM CDT Office Visit Division of Hematology in [place], [place] [address] [place] [phone] Mely Hayden APRN, Mavis.N.Killian., D.N.P., M.S. [address] [place] [phone] 03/15/2025 4:00 PM CDT Infusion Department of Oncology in [place], [place] [address] [place] [phone] Harshad Perez M.D. [address] [place] [phone] 03/16/2025 1:30 PM CDT Comprehensive Visit Division of Pulmonary Medicine in [place], [place] [address] [place] [phone] Morgan Peck M.D. [address] [place] [phone] 03/22/2025 11:10 AM CDT Appointment Department of Laboratory Medicine and Pathology, [facility], in [place], [place] [address] [place] [phone] Harshad Perez M.D. [address] [place] [phone] 03/22/2025 1:00 PM CDT Infusion Department of Oncology in [place], [place] [address] [place] [address] Harshad Perez M.D. [address] [place] [phone] 03/29/2025 9:15 AM CDT Appointment Division of Pulmonary Medicine in [place], [place] [address] [place] [phone] Harshad Perez M.D. [address] [place] [phone] Discharge Disposition: Home or Self Care 03/29/2025 10:30 AM CDT Appointment Department of Laboratory Medicine and Pathology, [facility] in [place], [place] [address] [place] [address] Harshad Perez M.D. [address] [place] [phone] 03/29/2025 11:15 AM CDT Nurse Only Division of Hematology in [place], [place] [address] [place] [phone] Harshad Perez M.D. [address] [place] [phone] 03/29/2025 1:30 PM CDT Infusion Department of Oncology in [place], [place] [address] [place] [address] Harshad Perez M.D. [address] [place] [phone] 04/05/2025 10:10 AM CDT Appointment Department of Laboratory Medicine and Pathology, [facility] in [place], [place] [address] [place] [address] Harshad Perez M.D. [address] [place] [phone] 04/05/2025 12:00 PM CDT Infusion Department of Oncology in [place], [place] [address] [place] [phone] Harshad Perez M.D. [address] [place] [phone] 04/12/2025 11:40 AM CDT Appointment Department of Laboratory Medicine and Pathology, [facility] in [place], [place] [address] [place] [phone] Harshad Perez M.D. [address] [place] [phone] 04/12/2025 1:30 PM CDT Office Visit Division of Hematology in [address] [phone] Tr Hernandez M.D. [address] [place] [phone] 04/12/2025 3:30 PM CDT Infusion Department of Oncology in [place], [place] [address] [place] [phone] Harshad Perez M.D. [address] [place] [phone] 04/19/2025 10:15 AM CDT Infusion Department of Oncology in [place], [place] [address] [place] [phone] Harshad Perez M.D. [address] [place] [phone] 04/26/2025 10:10 AM CDT Appointment Department of Laboratory Medicine and Pathology, [facility] in [place], [place] [address] [place] [address] Harshad Perez M.D. [address] [place] [phone] 04/26/2025 11:00 AM CDT Nurse Only Division of Hematology in [place], [place] [address] [place] [address] Harshad Perez M.D. [address] [place] [phone] 04/26/2025 12:00 PM CDT Infusion Department of Oncology in [place], [place] [address] [place] [address] Harshad Perez M.D. [address] [place] [phone] 04/26/2025 1:30 PM CDT Appointment Division of Pulmonary Medicine in [place], [place] [address] [place] [address] Harshad Perez M.D. [address] [place] [phone] Discharge Disposition: Home or Self Care 05/03/2025 10:15 AM CDT Infusion Department of Oncology in [place], [place] [address] [place] [address] Harshad Perez M.D. [address] [place] [phone] 05/10/2025 9:40 AM [employer] Appointment Department of Laboratory Medicine and Pathology, [facility], in [place], [place] [address] [place] [address] Constantin López M.D. [address] [place] [phone] 05/10/2025 11:30 AM [employer] Office Visit Division of Hematology in [place], [place] [address] [place] [phone] Mely Hayden, ANY, C.N.P., D.N.P., M.S. [address] [place] [phone] 05/10/2025 1:00 PM [employer] Infusion Department of Oncology in [place], [place] [address] [place] [phone] Constantin López M.D. [address] [place] [phone] 05/17/2025 10:15 AM [employer] Infusion Department of Oncology in [place], [place] [address] [place] [phone] Constantin López M.D. [address] [place] [phone] 05/24/2025 10:00 AM [employer] Appointment Department of Laboratory Medicine and Pathology, [facility] in [place], [place] [address] [place] [phone] Constantin López M.D. [address] [place] [phone] 05/24/2025 10:45 AM [employer] Appointment Division of Pulmonary Medicine in [place], [place] [address] [place] [phone] Harshad Perez M.D. [address] [place] [phone] Discharge Disposition: Home or Self Care 05/24/2025 12:00 PM [employer] Infusion Department of Oncology in [place], [place] [address] [place] [phone] Constantin López M.D. [address] [place] [address] 05/31/2025 10:00 AM [employer] Infusion Department of Oncology in [place], [place] [address] [place] [address] Constantin López M.D. [address] [place] [phone] documented as of this encounter Visit Diagnoses Diagnosis Multiple Myeloma Not Having Achieved Remission (HCC)- Primary documented in this encounter Administered Medications Inactive Administered Medications - up to 3 most recent administrations Medication Order MAR Action Action Date Dose Rate Site acetaminophen tablet 650 mg (TylenoL) 650 mg, oral, Once, On Fri02/08/25 at 1545, For 1 dose, Administer 30 minutes prior to monoclonal antibody.Indications:Mu ltiple Myeloma Not Having Achieved Remission (HCC) Given 02/08/2025 3:37 PM CDT 650 mg bortezomib injection 2.5 mg (Velcade) 2.5 mg (rounded from 2.626 mg = 1.3 mg/m2 2.02 m2 Order-specific BSA), subcutaneous, Once, On Fri02/08/25 at 1545, For 1 dose, Rotate injection site.Indications:Multip le Myeloma Not Having Achieved Remission (HCC) Given 02/08/2025 4:06 PM CDT 2.5 mg Left Upper Abdomen cetirizine tablet 10 mg (ZyrTEC) 10 mg, oral, Once, On Fri02/08/25 at 1600, For 1 doseIndications:Multipl e Myeloma Not Having Achieved Remission (HCC) Given 02/08/2025 3:37 PM CDT 10 mg daratumumab-hyaluronida se-fihj injection 1,800 mg (Darzalex Faspro) 1,800 mg, subcutaneous, Administer over 5 Minutes, Once, On Fri02/08/25 at 1545, For 1 doseIndications:Multipl e Myeloma Not Having Achieved Remission (HCC) Given 02/08/2025 4:05 PM CDT 1,800 mg Right Upper Abdomen diphenhydrAMINE capsule 50 mg (BenadryL) 50 mg, oral, Once, On Fri02/08/25 at 1545, For 1 dose, Administer 30 minutes prior to monoclonal antibodyIndications:Mul tiple Myeloma Not Having Achieved Remission (HCC) Given 02/08/2025 3:37 PM CDT 50 mg documented in this encounter Additional Health Concerns Infection Onset Date Last Indicated Resolved Time Protective Environment 01/27/2025 01/27/2025 documented as of this encounter
--- OUTSIDE RECORDS SUMMARY | 2025-02-10 09:30 | XMS_ITS | Encounter Summary ---
Author Organization [facility] Address [address] [place] [id number] Care Team Providers Care Grinder Set Up Operator Internal Name Role Phone Unavailable Primary Care Provider Unavailabl e Reason for Referral * Outpatient (Routine) - Authorized Specialty Diagnoses / Procedures Referred By Teresa carvalho Referred To Contact Pulmonary Medicine Diagnoses Chronic Cough Constantin López M.D. [address] [place] [phone] Phone: tel: fax: [facility] Referral ID Status Reason Start Date Expiration Date V isits Requested Visits Authorized [id number] Authorized 02/10/2025 08/12/2026 1 1 Reason for Visit * Outpatient (Routine) - Closed Specialty Diagnoses / Procedures Referred By Teresa carvalho Referred To Contact Hematology Oncology Constantin López M.D. [address] [place] [address] Phone: tel: fax: [facility] Referral ID Status Reason Start Date Expiration Date Visits Re quested Visits Authorized [id number] Closed 02/09/2025 08/11/2026 1 1 Encounter Details Date Type Department Care Team (Late st Contact Info) Description 02/10/2025 9:30 AM CDT Telemedicine Division of Hematology in [place], [place] [address] [place] [phone] Constantin López M.D. [address] [place] [phone] Chronic Cough (Primary Dx); Multiple Myeloma Not Having Achieved Remission (HCC) [...] things needed for daily living? No 01/27/2025 [facility] Utilities Answer Date Recorded In the past 12 months has [employer], gas, oil, or water company threatened to shut off services in your home? No 01/27/2025 Housing Stability Answer Date Recorded What is your living situation today? I have a [facility] place to live 01/27/2025 Sex and Gender Information Value Date Recorded Sex Assigned at Male 01/27/2025 2:34 PM CDT Legal Sex Male 6:33 AM TENT FINISHER Gender Identity Male 01/27/2025 2:34 PM CDT Sexual Orientation Straight 01/27/2025 2: 34 PM CDT documented as of this encounter Progress Notes * Constantin López M.D. - 02/10/2025 9:30 AM CDT SUBJECTIVE CHIEF COMPLAINT / REASON FOR VISIT Consent for multiple myeloma. IDEAL study HISTORY OF PRESENT ILLNESS Joey Laird is a 60 y.o. male who presents to sign consent for IDEAL study of multiple myeloma. Outlined below is his hematologic history: Oncology History Multiple Myeloma Not Having Achieved Remission (HCC) 01/28/2025 Initial Diagnosis IgG [place] Multiple Myeloma, Stage (Pending FISH results) Date of Diagnosis: January 28, 2025 Presenting symptoms: Symptoms started near July 2024 of epistaxis, weight loss, foamy urine, hip/leg pain, LE swelling with redness and hypersensitivity. Labs: Date: January 2025 Hgb: 10.5 g/dL Plts: 332K Creatinine: 1.39 mg/dL Calcium: 9.0 mg/dL Total Protein: 9.4 Albumin: 3.3 g/dL CRP 53.5 LDH: 179 B2M: 8.55 HBV: negative SPEP: M-spike: 3.423 g/dL Immunofixation: IgG [place] Immunoglobulins: Ig mg/dL; IgA: 27 mg/dL; IgM: <5 mg/dL Free light chains (mg/dL): kappa: 452; lambda: 0.28; [place]:Lambda Ratio: >1000 UPEP: Urine Random: total protein: 12 mg/dL; urine M-spike: 1.11 mg, Immunofixation: Monoclonal protein detected in beta-gamma region, confirmed by immunofixation. IgG kappa with probable free kappa light chains. Pathology: [place] Bone Marrow: 1. Plasma cell myeloma, with >90% kappa light chain-restricted plasma cells. 2. Negative for amyloid. 3. Hypercellular bone marrow with panhypoplasia. Anemia. 4. No diagnostic morphologic features of a myelodysplastic syndrome, a myeloproliferative neoplasm,or other primary malignant myeloid neoplasm. S-Phase 0.8% FISH: pending Imagin01/04/2025 US, LE, Impression: No deep venous thrombosis detected in the left lower extremity. 01/17/2025 CT Chest/abd/pelvis, Impression: Diffusely abnormal osseous structures with innumerable lytic lesions present, new from CT 2012. Pathologic fracture and centrally involving the superior endplate of L3. No adenopathy in the chest, abdomen or pelvis. Intrahepatic cysts are present measuring up to 1.4 cm. 01/20/2025 PET/CT, Graham review, IMPRESSION: 1. Intense FDG bone marrow uptake [...] may be reactive. * Deauville score: 5 02/08/2025 - Chemotherapy Daratumumab (Subcutaneous) RVD (Lenalidomide / Bortezomib / dexAMETHasone) (28 day cycles) Start Date: Planned 02/08/2025 03/01/2025 - Research Study Participant Research Study: Iberdomide, Daratumumab, Bortezomib, and Dexamethasone for Treatment of Newly Diagnosed Multiple Myeloma, IDEAL Study ([id number]) Treatment Protocol: [facility] [id number] Induction ( Daratumumab (Subcutaneous) / Bortezomib / Iberdomide /dexAMETHasone ) INTERVAL HISTORY Joey Laird returns 02/10/25 for signing of the consent in to discuss about the IDEAL study. So far he is tolerating Nettie RVD therapy well he has not yet received Revlimid. I have reviewed the medical, surgical, and social history. Medical History[1] Surgical History[2] Social History Socioeconomic History Marital status: Single Spouse name: Not on file Number of children: Not on file Years of education: Not on file Highest education level: Not on file Occupational History Not on file Tobacco Use Smoking status: Former Current packs/day: 0.00 Average packs/day: 0.8 packs/day for 36.2 years (27.2 ttl pk-yrs) Types: Cigarettes Start date: 12/10/1974 Quit date: 03/06/2011 Years since quittin.9 Smokeless tobacco: Never Tobacco comments: I started smoking before entering high school, but probably didn't start to inhale until my freshman year. Between the time I started and the time I finally stopped I had quit several times, once foras long as three years. Substance and Sexual Activity Alcohol use: Yes Comment: I seldom drink alcohol now, just a beer or glass of wine at family holidays. In my late teens through my twenties I drank on weekends. Drug use: Not Currently Frequency: 25.0 times per week Types: Marijuana Comment: I started smoking marijuana in my mid teens and quit at about 23 years old. I was a very heavy smoker in my teens. Sexual activity: Not Currently Partners: Female Comment: When I was in my late teens to late twenties I was sexually active. Other Topics Concern Not on file Social History Narrative Not on file Social Drivers of Health Food Insecurity: No Food Insecurity (01/27/2025) Hunger Vital Sign Worried About Running Out of Food in the Last Year: Never true Ran Out of Food in the Last Year: Never true Transportation Needs: No Transportation Needs (01/27/2025) PRAPARE - Transportation Lack of Transportation (Medical): No Lack of Transportation (Non-Medical): No Intimate Partner Violence: Not on file Housing Stability: Low Risk (01/27/2025) Housing Stability Housing: Living Situation: I have a steady place to live HOME MEDICATIONS Medications Ordered Prior to Encounter[3] OBJECTIVE PHYSICAL EXAMINATION General: Patient is comfortably seated, in no acute distress. Alert and oriented to person, place, and time. There were no vitals filed for this visit. DIAGNOSTICS I have reviewed the recent relevant diagnostics. DX Lumbar Spine 2-3 Views Result Date: 02/03/2025 Impression: Scattered vague lytic lesions throughout the visualized bones in keeping with known multiple myeloma. No significant pathologic compression. Convex left thoracolumbar curve. Degenerative arthritis lower lumbar facet joints. Degenerative changes both sacroiliac and hip joints. Recent Results (from the past 72 hours) CBC, Chemotherapy, No Alerts Collection Time: 02/08/25 3:02 PM Result Value Hemoglobin 10.3 (L) Platelet Count 255 Leukocytes 5.6 Neutrophils 2.68 Discussed and answered all questions. ASSESSMENT / PLAN #1 Multiple Myeloma Not Having Achieved Remission (HCC) Consent - Remote Electronic Consent Conversation: Video Conference Conversation How was the patient identify confirmed: Name Mr. Joey Laird, 89, , 1965 List Additional family members or LAR, if present: N/A . Mr. Laird signed consent for study: Study Title [id number]: Phase 2 trial of Iberdomide in combination with Daratumumab, bortEzomib and dexamethAsone in patients with newly diagnosed multiple myeLoma(IDEAL) [id number]: Phase 2 trial of Iberdomide in combination with Daratumumab, bortEzomib and dexamethAsonein patients with newly diagnosed multiple myeLoma (IDEAL) DOREEN Godfrey Mechanism of action Oral potent cereblon E3 ligase modulator (CELMoD). Prior Therapy Newly Diagnosed -No more than one cycle of any treatment regimen Measurable disease Serum M-protein > 0.5g/dL, Urine > 200 mg/24, sFLC > 10 mg/dL, Bone marrow plasma cells > 30%, measurable plasmacytoma at least one lesion single diameter > 2cm on PET-CT scan, and IgA Myeloma. Lab requirements ANC >1000/mm3; Hb > 8g/dL. Platelets >75,000mm3, calculated creatinine clearance 50 mL/min PK and PD testing PK: C1D8, C2D8, C3D15 - sample taken 5-30 minutes before taking iberdomide PD: C1D1 and C1D8 - sample taken 5-20 minutes before taking iberdomide and 3 hours post dose Exclusion Criteria Major surgery, plasmapheresis, radiotherapy< 14 days prior to registration, known moderate or severe persistent asthma, smoldering multiple myeloma or AL amyloidosis Dosing Induction (Cycles 1-12) Iberdomide (PO) Days 1-21 Daratumumab (SQ) Cycle 1-2: Days 1, 8, 15, 22 Patient will be observed for at least 6 hours after SC injection C1D1, and if deemed necessary by crime investigator special agent, after subsequent injections. Cycles 3-6: Days 1, 15 Cycle 7-12: Day 1 Bortezomib (SQ) Days 1,8,15,22 Dexamethasone (PO) or IV Days 1, 8, 15, 22 On days in which patient is getting Daratumumab, Dexamethasone is used as a pre- treatment drug, additional Dexamethasone will not be self-administered. May be permanently discontinued after 12 cycles or sooner at the treating physician's discretion Cycles 13-36 Iberdomide (PO) Days 1-21 Visit schedule After the first 3 cycles, the patients will be permitted to receive parental drugs under supervision of local science writer/oncologist office following weekly phone assessments with [facility] Nurse and must come back to [place] once every 28 days. Risks, benefits, and alternatives in pursuing this research study were discussed in detail with thepatient by me. Study related obligations were reviewed with patient. The patient was afforded the opportunity to review the consent form and all questions were answered.We evaluated the potential participant???s responses, in combination with any clarifying questions asked by the potential participant, to determine whether they demonstrated sufficient recall and comprehension. Follow-up questionswere conducted to ensure any misunderstandings were resolved. All other notable factors, such as a family member expressing concerns, were addressed. Mr. Laird agreed to participate in this ongoing research study and the consent form was provided electronically to the patient on February 10, 2025. The consent form has been electronically signed and dated by the patient per the FDA, 21 CFR Part 11 on February 10, 2025. The informed consent was signed and dated by the patient and myself . A copy of the signed informed consent will be available in the patient's portal. An original copy will be retained within patient's study subject file. Patient signed consent prior to any study procedures being performed. FOLLOW-UP: Return to clinic in am for the lab tests. EDUCATION: We discussed the diagnosis and treatment plan in detail. The patient expressed understanding of thecontent. No apparent learning barriers were identified. Signed by: Constantin López M.D. 02/10/2025 10:32 AM CDT [1] Past Medical History: Diagnosis Date Chronic Obstructive Pulmonary Disease NOS 01/26/25 [2] Past Surgical History: Procedure Laterality Date APPENDECTOMY 03/26/83 [3] Current Outpatient Medications on File Prior to Visit Medication Sig Dispense Refill acyclovir (Zovirax) 400 mg tablet Take 1 tablet (400 mg total) by mouth 2 (two) times a day. 60 tablet [address] tablet Take 1 tablet (325 mg total) by mouth daily. (Patient not taking: Reportedon 02/03/2025) 100 tablet 3 dexAMETHasone (Decadron) 4 mg tablet Take 10 tablets (40 mg total) by mouth once a week for 4 doses. Take on days 1, 8, 15, and 22. If it is a day you are receiving daratumumab, take dexAMETHasone prior to infusion appointment. 40 tablet 0 gabapentin (Neurontin) 300 mg capsule Take 1 capsule (300 mg total) by mouth 2 (two) times a day. 30 capsule 0 lenalidomide (Revlimid) 10 mg capsule Take 1 capsule (10 mg total) by mouth daily. Take on days 1 through 21 of cycle (Patient not taking: Reported on 02/03/2025) 21 capsule 0 lenalidomide (Revlimid) 10 mg capsule Take 1 capsule (10 mg total) by mouth daily. Take on days 1 through 21 of cycle (Patient not taking: Reported on 02/03/2025) 21 capsule 0 levoFLOXacin (Levaquin) 250 mg tablet Take 1 tablet (250 mg total) by mouth daily. 30 tablet 2 omeprazole (PriLOSEC) [address] capsule Take 1 capsule (20 mg total) by mouth daily. 90 capsule 3 ondansetron (Zofran) 8 mg tablet Take 1 tablet (8 mg total) by mouth every 8 (eight) hours as needed for nausea or vomiting (unrelieved by prochlorperazine). 30 tablet 3 prochlorperazine (Compazine) 10 mg tablet Take 1 tablet (10 mg total) by mouth every 6 (six) hours as needed for nausea or vomiting. 30 tablet 3 No current facility-administered medications on file prior to visit. documented in this encounter Plan of Treatment Upcoming Encounters Date Type Department Care Team (Latest Contact Info) Description 03/08/2025 8:00 AM CDT Appointment Department of Laboratory Medicine and Pathology, [facility], in [place], [place] [address] [place] [phone] Constantin López M.D. [address] [place] [phone] 03/08/2025 8:45 AM CDT Infusion Department of Oncology in [place], [place] [address] [place] [phone] Constantin López M.D. [address] [place] [phone] 03/08/2025 10:30 AM CDT Comprehensive Visit Department of Vascular Medicine in [place], [place] [address] [place] [phone] Vic Flores M.D. [address] [place] [phone] 03/11/2025 12:30 PM CDT Diagnostic Division of Pulmonary Medicine in [place], [place] [address] [place] [phone] oCnstantin López M.D. [address] [place] [phone] 03/11/2025 2:00 PM CDT Appointment Department of Vascular Medicine in [place], [place] [address] [place] [phone] Constantin López M.D. [address] [place] [phone] Discharge Disposition: Home or Self Care 03/15/2025 9:00 AM CDT Comprehensive Visit Department of Spine in [place], [place] [address] [place] [phone] Hebert Francis APRN, C.N.P., M.S.N. [address] [place] [phone] 03/15/2025 12:30 PM CDT Appointment Department of Laboratory Medicine and Pathology, [facility] in [place], [place] [address] [place] [phone] Harshad Perez M.D. [address] [place] [phone] 03/15/2025 2:30 PM CDT Office Visit Division of Hematology in [place], [place] [address] [place] [phone] Mely Hayden APRN, C.N.P., D.N.P., M.S. [address] [place] [phone] 03/15/2025 4:00 PM CDT Infusion Department of Oncology in [place], [place] [address] [place] [phone] Harshad Perez M.D. [address] [place] [phone] 03/16/2025 1:30 PM CDT Comprehensive Visit Division of Pulmonary Medicine in [place], [place] [address] [place] [phone] Morgan Peck M.D. [address] [place] [phone] 03/22/2025 11:10 AM CDT Appointment Department of Laboratory Medicine and Pathology, [facility] in [place], [place] [address] [place] [phone] Harshad Perez M.D. [address] [place] [phone] 03/22/2025 1:00 PM CDT Infusion Department of Oncology in [place], [place] [address] [place] [address] Harshad Perez M.D. [address] [place] [phone] 03/29/2025 9:15 AM CDT Appointment Division of Pulmonary Medicine in [place], [place] [address] [place] [phone] Harshad Perez M.D. [address] [place] [phone] Discharge Disposition: Home or Self Care 03/29/2025 10:30 AM CDT Appointment Department of Laboratory Medicine and Pathology, [facility] in [place], [place] [address] [place] [phone] Harshad Perez M.D. [address] [place] [phone] 03/29/2025 11:15 AM CDT Nurse Only Division of Hematology in [place], [place] [address] [place] [phone] Harshad Perez M.D. [address] [place] [phone] 03/29/2025 1:30 PM CDT Infusion Department of Oncology in [place], [place] [address] [place] [address] Harshad Perez M.D. [address] [place] [phone] 04/05/2025 10:10 AM CDT Appointment Department of Laboratory Medicine and Pathology, [facility] in [place], [place] [address] [place] [address] Harshad Perez M.D. [address] [place] [phone] 04/05/2025 12:00 PM CDT Infusion Department of Oncology in [place], [place] [address] [place] [phone] Harshad Perez M.D. [address] [place] [phone] 04/12/2025 11:40 AM CDT Appointment Department of Laboratory Medicine and Pathology, [facility] in [place], [place] [address] [place] [address] Harshad Perez M.D. [address] [place] [phone] 04/12/2025 1:30 PM CDT Office Visit Division of Hematology in [place], [place] [address] [place] [address] Tr Hernandez M.D. [address] [place] [phone] 04/12/2025 3:30 PM CDT Infusion Department of Oncology in [place], [place] [address] [place] [phone] Harshad Perez M.D. [address] [place] [phone] 04/19/2025 10:15 AM CDT Infusion Department of Oncology in [place], [place] [address] [place] [phone] Harshad Perez M.D. [address] [place] [phone] 04/26/2025 10:10 AM CDT Appointment Department of Laboratory Medicine and Pathology, [facility] in [place], [place] [address] [place] [phone] Harshad Perez M.D. [address] [place] [phone] 04/26/2025 11:00 AM CDT Nurse Only Division of Hematology in [address] [phone] Harshad Perez M.D. [address] [place] [phone] 04/26/2025 12:00 PM CDT Infusion Department of Oncology in [place], [place] [address] [place] [phone] Harshad Perez M.D. [address] [place] [phone] 04/26/2025 1:30 PM CDT Appointment Division of Pulmonary Medicine in [place], [place] [address] [place] [phone] Harshad Perez M.D. [address] [place] [phone] Discharge Disposition: Home or Self Care 05/03/2025 10:15 AM CDT Infusion Department of Oncology in [place], [place] [address] [place] [phone] Harshad Perez M.D. [address] [place] [phone] 05/10/2025 9:40 AM TENT FINISHER Appointment Department of Laboratory Medicine and Pathology, [facility] in [place], [place] [address] [place] [phone] Constantin López M.D. [address] [place] [phone] 05/10/2025 11:30 AM TENT FINISHER Office Visit Division of Hematology in [place], [place] [address] [place] [phone] Mely Hayden, ANY, C.N.P., D.N.P., M.S. [address] [place] [phone] 05/10/2025 1:00 PM TENT FINISHER Infusion Department of Oncology in [place], [place] [address] [place] [phone] Constantin López M.D. [address] [place] [phone] 05/17/2025 10:15 AM TENT FINISHER Infusion Department of Oncology in [place], [place] [address] [place] [phone] Constantin López M.D. [address] [place] [phone] 05/24/2025 10:00 AM TENT FINISHER Appointment Department of Laboratory Medicine and Pathology, [facility], in [place], [place] [address] [place] [phone] Constantin López M.D. [address] [place] [phone] 05/24/2025 10:45 AM TENT FINISHER Appointment Division of Pulmonary Medicine in [place], [place] [address] [place] [phone] Harshad Perez M.D. [address] [place] [phone] Discharge Disposition: Home or Self Care 05/24/2025 12:00 PM TENT FINISHER Infusion Department of Oncology in [place], [place] [address] [place] [phone] Constantin López M.D. [address] [place] [phone] 05/31/2025 10:00 AM TENT FINISHER Infusion Department of Oncology in [place], [place] [address] [place] [phone] Constantin López M.D. [address] [place] [phone] Scheduled Orders Name Type Priority Associated Diagnoses Orde r Schedule Pulmonary Function Tests PFT Routine Chronic Cough Expected: 02/10/2025, Expires: 05/13/2026 Scheduled Referrals Name Type Priority Associated Diagnoses Order Schedule Pulmonary Medicine - Chronic obstructive pulmonary disease (COPD) consult (clinic) Outpatient Referral Routine Chronic Cough Expected: 02/10/2025 (Approximate), Expires: 05/13/2026 documented as of this encounter Visit Diagnoses Diagnosis Chronic Cough- Primary Multiple Myeloma Not Having Achieved Remission (HCC) documented in this encounter Additional Health Concerns Infection Onset Date Last Indicated Resolved Time Protective Environment 01/27/2025 01/27/2025 documented as of this encounter
--- OUTSIDE RECORDS SUMMARY | 2025-02-10 10:00 | XMS_ITS | Encounter Summary ---
Author Organization [facility] Address [address] [place] [address] Care Team Providers Care Fruit Or Nut Picker Name Role Phone Unavailable Primary Care Provider Unavailabl e Encounter Details Date Type Department Care Team (Latest Contact Info) Description 02/10/2025 10:00 AM CDT - 02/10/2025 11:59 PM CDT Hospital Encounter Department of Laboratory Medicine and Pathology, [facility] in [place], [place] [address] [place] [address] Constantin López M.D. [address] [place] [address] Multiple Myeloma Not Having Achieved Remission (HCC) [...] things needed for daily living? No 01/27/2025 [facility] Utilities Answer Date Recorded In the past 12 months has [facility] [employer], gas, oil, or water [employer] threatened to shut off services in your home? No 01/27/2025 Housing Stability Answer Date Recorded What is your living situation today? I have a [facility] place to live 01/27/2025 Sex and Gender Information Value Date Recorded Sex Assigned at Male 01/27/2025 2:34 PM CDT Legal Sex Male 6:33 AM SEAT COVER INSTALLER Gender Identity Male 01/27/2025 2:34 PM CDT [...] Appointment Department of Laboratory Medicine and Pathology, [facility] in [place], [place] 200 [place] [phone] Constantin López M.D. 200 [place] [phone] 03/08/2025 8:45 AM CDT Infusion Department of Oncology in [place], [place] [address] [place] [phone] Constantin López M.D. [address] [place] [phone] 03/08/2025 10:30 AM CDT Comprehensive Visit Department of Vascular Medicine in [place], [place] [address] [place] [phone] Vic Flores M.D. [address] [place] [phone] 03/11/2025 12:30 PM CDT Diagnostic Division of Pulmonary Medicine in [place], [place] [address] [place] [phone] Constantin López M.D. [address] [place] [phone] 03/11/2025 2:00 PM CDT Appointment Department of Vascular Medicine in [place], [place] [address] [place] [phone] Constantin López M.D. [address] [place] [phone] Discharge Disposition: Home or Self Care 03/15/2025 9:00 AM CDT Comprehensive Visit Department of Spine in [place], [place] [address] [place] [phone] Hebert Francis APRN, C.N.P., M.S.N. [address] [place] [phone] 03/15/2025 12:30 PM CDT Appointment Department of Laboratory Medicine and Pathology, [facility], in [place], [place] [address] [place] [address] Harshad Perez M.D. [address] [place] [phone] 03/15/2025 2:30 PM CDT Office Visit Division of Hematology in [place], [place] [address] [place] [phone] Mely Hayden, ANY, C.N.P., D.N.P., M.S. [address] [place] [phone] 03/15/2025 4:00 PM CDT Infusion Department of Oncology in [place], [place] [address] [place] [phone] Harshad Perez M.D. [address] [place] [phone] 03/16/2025 1:30 PM CDT Comprehensive Visit Division of Pulmonary Medicine in [place], [place] [address] [place] [phone] Morgan Peck M.D. [address] [place] [phone] 03/22/2025 11:10 AM CDT Appointment Department of Laboratory Medicine and Pathology, [facility], in [place], [place] [address] [place] [phone] Harshad Perez M.D. [address] [place] [phone] 03/22/2025 1:00 PM CDT Infusion Department of Oncology in [place], [place] [address] [place] [phone] Harshad Perez M.D. [address] [place] [phone] 03/29/2025 9:15 AM CDT Appointment Division of Pulmonary Medicine in [place], [place] [address] [place] [phone] Harshad Perez M.D. [address] [place] [phone] Discharge Disposition: Home or Self Care 03/29/2025 10:30 AM CDT Appointment Department of Laboratory Medicine and Pathology, [facility] in [place], [place] [address] [place] [phone] Harshad Perez M.D. [address] [place] [phone] 03/29/2025 11:15 AM CDT Nurse Only Division of Hematology in [place], [place] [address] [place] [phone] Harshad Perez M.D. [address] [place] [phone] 03/29/2025 1:30 PM CDT Infusion Department of Oncology in [place], [place] [address] [place] [phone] Harshad Perez M.D. [address] [place] [phone] 04/05/2025 10:10 AM CDT Appointment Department of Laboratory Medicine and Pathology, [facility] in [place], [place] [address] [place] [phone] Harshad Perez M.D. [address] [place] [phone] 04/05/2025 12:00 PM CDT Infusion Department of Oncology in [place], [place] [address] [place] [phone] Harshad Perez M.D. [address] [place] [phone] 04/12/2025 11:40 AM CDT Appointment Department of Laboratory Medicine and Pathology, [facility], in [place], [place] [address] [place] [address] Harshad Perez M.D. [address] [place] [phone] 04/12/2025 1:30 PM CDT Office Visit Division of Hematology in [place], [place] [address] [place] [phone] Tr Hernandez M.D. [address] [place] [phone] 04/12/2025 3:30 PM CDT Infusion Department of Oncology in [place], [place] [address] [place] [address] Harshad Perez M.D. [address] [place] [phone] 04/19/2025 10:15 AM CDT Infusion Department of Oncology in [place], [place] [address] [place] [address] Harshad Perez M.D. [address] [place] [phone] 04/26/2025 10:10 AM CDT Appointment Department of Laboratory Medicine and Pathology, [facility], in [place], [place] [address] [place] [address] Harshad Perez M.D. [address] [place] [phone] 04/26/2025 11:00 AM CDT Nurse Only Division of Hematology in [place], [place] [address] [place] [address] KoHarshad high M.D. [address] [place] [phone] 04/26/2025 12:00 PM CDT Infusion Department of Oncology in [place], [place] [address] [place] [phone] Harshad Perez M.D. [address] [place] [phone] 04/26/2025 1:30 PM CDT Appointment Division of Pulmonary Medicine in [place], [place] [address] [place] [phone] Harshad Perez M.D. [address] [place] [phone] Discharge Disposition: Home or Self Care 05/03/2025 10:15 AM CDT Infusion Department of Oncology in [place], [place] [address] [place] [phone] Harshad Perez M.D. [address] [place] [phone] 05/10/2025 9:40 AM SEAT COVER INSTALLER Appointment Department of Laboratory Medicine and Pathology, [facility], in [place], [place] [address] [place] [phone] Constantin López M.D. [address] [place] [phone] 05/10/2025 11:30 AM SEAT COVER INSTALLER Office Visit Division of Hematology in [place], [place] [address] [place] [phone] Mely Hayden, ANY, C.N.P., D.N.P., M.S. [address] [place] [phone] 05/10/2025 1:00 PM SEAT COVER INSTALLER Infusion Department of Oncology in [place], [place] [address] [place] [phone] Constantin López M.D. [address] [place] [phone] 05/17/2025 10:15 AM SEAT COVER INSTALLER Infusion Department of Oncology in [place], [place] [address] [place] [phone] Constantin López M.D. [address] [place] [phone] 05/24/2025 10:00 AM SEAT COVER INSTALLER Appointment Department of Laboratory Medicine and Pathology, [facility] in [place], [place] [address] [place] [phone] Constantin López M.D. [address] [place] [phone] 05/24/2025 10:45 AM SEAT COVER INSTALLER Appointment Division of Pulmonary Medicine in [address] [phone] Harshad Perez M.D. [address] [place] [phone] Discharge Disposition: Home or Self Care 05/24/2025 12:00 PM SEAT COVER INSTALLER Infusion Department of Oncology in [place], [place] [address] [place] [phone] Constantin López M.D. [address] [place] [phone] 05/31/2025 10:00 AM SEAT COVER INSTALLER Infusion Department of Oncology in [place], [place] [address] [place] [phone] Constantin López M.D. [address] [place] [phone] documented as of this encounter Procedures Procedure Name Priority Date/Time Associated Diagnosis Comments MONOCLONAL PROTEIN STUDY, RANDOM, U Routine 02/12/2025 11:20 AM CDT documented in this encounter Results * (ABNORMAL) Monoclonal Protein Study, Random, Urine (02/12/2025 11:20 AM CDT) Protein, Total, Random, U <4 mg/dL 02/17/2025 1:49 PM CDT DTL Comment:Unable to obtain vol ume, therefore test changed to random collection. Creatinine, Random, U 36 16 - 326 mg/dL 02/17/2025 1:49 PM CDT DTL Protein/Creatinine Ratio <0.11 <0.18 mg/mg 02/17/2025 1:49 PM CDT DTL Comment: This ratio may not correspond with the reference range because one or both of the values used to calculate the ratio was above or below the quantification limits. Flag M-protein Isotype MS, Random, U Positive(A) Negative 02/21/2025 12:19 PM CDT SDSC M-protein Isotype MS, Random, U Baring, monoclonal. ~The M-protein light chain is glycosylated. Patients with glycosylated light chains are at higher risk for AL amyloidosis. 02/21/2025 12:19 PM CDT SDSC Comment: ----ADDITIONAL INFORMATION---- The submitted sample was assayed by five separate immunopurifications for IgG, IgA, IgM, kappa and lambda. The result reflects the findings of either no monoclonal protein detected or those monoclonal immunoglobulins that were detected. This test was developed and its performance characteristics determined by [facility] in a manner consistent with CLIA requirements. This test has not been cleared or approved by the U.S. Food and Drug Administration. Albumin, mg/dL unable to calculate mg/dL 02/21/2025 1:56 PM CDT SDSC Comment:Albumin fraction is 100% of the total protein. Impression Albumin is the only protein detected. See Isotype. 02/21/2025 1:56 PM CDT SDSC Urine 02/12/2025 11:2 0 AM CDT 02/17/2025 4:21 PM CDT us Constantin López M.D. LAB URINE ORDERABLES Final Result [facility] [address] [place] [address] DTL [facility] [address] [place] [address] [facility] [address] [place] [address] [place] [place] [address] documented in this encounter Visit Diagnoses Diagnosis Multiple Myeloma Not Having Achieved Remission (HCC) documented in this encounter Additional Health Concerns Infection Onset Date Last Indicated Resolved Time Protective Environment 01/27/2025 01/27/2025 documented as of this encounter
--- OUTSIDE RECORDS SUMMARY | 2025-02-10 10:20 | XMS_ITS | Encounter Summary ---
Author Organization [facility] Address [address] [place] [address] Care Team Providers Care Scales Inspector Name Role Phone Unavailable Primary Care Provider Unavailabl e Encounter Details Date Type Department Care Team (Latest Contact Info) Description 02/10/2025 10:20 AM CDT Ancillary Procedure Department of Radiology in [place], [place] [address] [place] [address] Constantin López M.D. [address] [place] [phone] Multiple Myeloma Not Having Achieved Remission (HCC) [...] your living situation today? I have a [facility] place to live 01/27/2025 Sex and Gender Information Value Date Recorded Sex Assigned at Male 01/27/2025 2:34 PM CDT Legal Sex Male 6:33 AM FIRER BOILER Gender Identity Male 01/27/2025 2:34 PM CDT Sexual Orientation Straight 01/27/2025 2: 34 PM CDT documented as of this encounter Plan of Treatment Upcoming Encounters Date Type Department Care Team (Latest Contact Info) Description 03/08/2025 8:00 AM CDT Appointment Department of Laboratory Medicine and Pathology, [facility] in [place], [place] [address] [place] [address] Constantin López M.D. [address] [place] [phone] 03/08/2025 8:45 AM CDT Infusion Department of Oncology in [place], [place] [address] [place] [phone] Constantin López M.D. [address] [place] [phone] 03/08/2025 10:30 AM CDT Comprehensive Visit Department of Vascular Medicine in [place], [place] [address] [place] [phone] Vic Flores M.D. [address] [place] [phone] 03/11/2025 12:30 PM CDT Diagnostic Division of Pulmonary Medicine in [place], [place] [address] [place] [address] Constantin López M.D. [address] [place] [phone] 03/11/2025 2:00 PM CDT Appointment Department of Vascular Medicine in [place], [place] [address] [place] [address] Constantin López M.D. [address] [place] [phone] Discharge Disposition: Home or Self Care 03/15/2025 9:00 AM CDT Comprehensive Visit Department of Spine in [place], [place] [address] [place] [phone] Hebert Francis APRN, C.N.P., M.S.N. [address] [place] [phone] 03/15/2025 12:30 PM CDT Appointment Department of Laboratory Medicine and Pathology, [facility], in [place], [place] [address] [place] [address] Harshad Perez M.D. [address] [place] [phone] 03/15/2025 2:30 PM CDT Office Visit Division of Hematology in [place], [place] [address] [place] [phone] Mely Hayden APRN, C.N.P., D.N.P., M.S. [address] [place] [phone] 03/15/2025 4:00 PM CDT Infusion Department of Oncology in [place], [place] [address] [place] [address] Harshad Perez M.D. [address] [place] [phone] 03/16/2025 1:30 PM CDT Comprehensive Visit Division of Pulmonary Medicine in [place], [place] [address] [place] [phone] Morgan Peck M.D. [address] [place] [phone] 03/22/2025 11:10 AM CDT Appointment Department of Laboratory Medicine and Pathology, [facility] in [place], [place] [address] [place] [phone] Harshad Perez M.D. [address] [place] [phone] 03/22/2025 1:00 PM CDT Infusion Department of Oncology in [place], [place] [address] [place] [phone] Harshad Perez M.D. [address] [place] [phone] 03/29/2025 9:15 AM CDT Appointment Division of Pulmonary Medicine in [place], [place] [address] [place] [phone] Harshad Perez M.D. [address] [place] [phone] Discharge Disposition: Home or Self Care 03/29/2025 10:30 AM CDT Appointment Department of Laboratory Medicine and Pathology, [facility], in [place], [place] [address] [place] [phone] Harshad Perez M.D. [address] [place] [phone] 03/29/2025 11:15 AM CDT Nurse Only Division of Hematology in [place], [place] [address] [place] [phone] Harshad Perez M.D. [address] [place] [phone] 03/29/2025 1:30 PM CDT Infusion Department of Oncology in [place], [place] [address] [place] [address] Harshad Perez M.D. [address] [place] [phone] 04/05/2025 10:10 AM CDT Appointment Department of Laboratory Medicine and Pathology, [facility] in [place], [place] [address] [place] [address] Harshad Perez M.D. [address] [place] [phone] 04/05/2025 12:00 PM CDT Infusion Department of Oncology in [place], [place] [address] [place] [address] Harshad Perez M.D. [address] [place] [phone] 04/12/2025 11:40 AM CDT Appointment Department of Laboratory Medicine and Pathology, [facility] in [place], [place] [address] [place] [address] Harshad Perez M.D. [address] [place] [phone] 04/12/2025 1:30 PM CDT Office Visit Division of Hematology in [place], [place] [address] [place] [phone] Tr Hernandez M.D. [address] [place] [phone] 04/12/2025 3:30 PM CDT Infusion Department of Oncology in [place], [place] [address] [place] [address] Harshad Perez M.D. [address] [place] [phone] 04/19/2025 10:15 AM CDT Infusion Department of Oncology in [place], [place] [address] [place] [address] Harshad Perez M.D. [address] [place] [phone] 04/26/2025 10:10 AM CDT Appointment Department of Laboratory Medicine and Pathology, [facility] in [place], [place] [address] [place] [address] Harshad Perez M.D. [address] [place] [phone] 04/26/2025 11:00 AM CDT Nurse Only Division of Hematology in [place], [place] [address] [place] [phone] Harshad Perez M.D. [address] [place] [phone] 04/26/2025 12:00 PM CDT Infusion Department of Oncology in [place], [place] [address] [place] [address] Harshad Perez M.D. [address] [place] [phone] 04/26/2025 1:30 PM CDT Appointment Division of Pulmonary Medicine in [place], [place] [address] [place] [address] Harshad Perez M.D. [address] [place] [phone] Discharge Disposition: Home or Self Care 05/03/2025 10:15 AM CDT Infusion Department of Oncology in [place], [place] [address] [place] [phone] Harshad Perez M.D. [address] [place] [phone] 05/10/2025 9:40 AM FIRER BOILER Appointment Department of Laboratory Medicine and Pathology, [place], [place] [address] [place] [phone] Constantin López M.D. [address] [place] [phone] 05/10/2025 11:30 AM FIRER BOILER Office Visit Division of Hematology in [place], [place] [address] [place] [phone] Mely Hayden APRN, C.N.P., D.N.P., M.S. [address] [place] [phone] 05/10/2025 1:00 PM FIRER BOILER Infusion Department of Oncology in [address] [address] Constantin López M.D. [address] [place] [phone] 05/17/2025 10:15 AM FIRER BOILER Infusion Department of Oncology in [place], [place] [address] [place] [phone] Constantin López M.D. [address] [place] [phone] 05/24/2025 10:00 AM FIRER BOILER Appointment Department of Laboratory Medicine and Pathology, [facility] in [place], [place] [address] [place] [phone] Constantin López M.D. [address] [place] [phone] 05/24/2025 10:45 AM FIRER BOILER Appointment Division of Pulmonary Medicine in [place], [place] [address] [place] [phone] Harshad Perez M.D. [address] [place] [phone] Discharge Disposition: Home or Self Care 05/24/2025 12:00 PM FIRER BOILER Infusion Department of Oncology in [place], [place] [address] [place] [phone] Constantin López M.D. [address] [place] [phone] 05/31/2025 10:00 AM FIRER BOILER Infusion Department of Oncology in [place], [place] [address] [place] [phone] Constantin López M.D. [address] [place] [phone] documented as of this encounter Visit Diagnoses Diagnosis Multiple Myeloma Not Having Achieved Remission (HCC) documented in this encounter Additional Health Concerns Infection Onset Date Last Indicated Resolved Time Protective Environment 01/27/2025 01/27/2025 documented as of this encounter
--- OUTSIDE RECORDS SUMMARY | 2025-02-11 08:26 | XMS_ITS | Encounter Summary ---
Author Organization [facility] Address [address] [place] [id number] Care Team Providers Care Internal Audit Senior Manager Name Role Phone Unavailable Primary Care Provider Unavailabl e Encounter Details Date Type Department Care Team (Latest Contact Info) Description 02/11/2025 8:26 AM CDT - 02/11/2025 10:22 AM CDT Hospital Encounter Department of Laboratory Medicine and Pathology, [facility] in [place], [place] [address] [place] [address] Constantin López M.D. [address] [place] [address] Multiple Myeloma Not Having Achieved Remission (HCC) [...] things needed for daily living? No 01/27/2025 [facility] Utilities Answer Date Recorded In the past 12 months has [employer], oil, or water bright [employer] threatened to shut off services in your home? No 01/27/2025 Housing Stability Answer Date Recorded What is your living situation today? 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 Apply to both feet 30 g 1 03/01/2025 9:06 AM CDT 02/11/[address] tabletIndication s:Multiple Myeloma [...] Appointment Department of Laboratory Medicine and Pathology, [facility], in [place], [place] [address] [place] [address] Constantin López M.D. [address] [place] [phone] 03/08/2025 8:45 AM CDT Infusion Department of Oncology in [place], [place] [address] [place] [phone] Constantin López M.D. [address] [place] [phone] 03/08/2025 10:30 AM CDT Comprehensive Visit Department of Vascular Medicine in [place], [place] [address] [place] [phone] Vic Flores M.D. [address] [place] [phone] 03/11/2025 12:30 PM CDT Diagnostic Division of Pulmonary Medicine in [place], [place] [address] [place] [phone] Constantin López M.D. [address] [place] [phone] 03/11/2025 2:00 PM CDT Appointment Department of Vascular Medicine in [place], [place] [address] [place] [phone] Constantin López M.D. [address] [place] [phone] Discharge Disposition: Home or Self Care 03/15/2025 9:00 AM CDT Comprehensive Visit Department of Spine in [place], [place] [address] [place] [phone] Hebert Francis APRN, C.N.P., M.S.N. [address] [place] [phone] 03/15/2025 12:30 PM CDT Appointment Department of Laboratory Medicine and Pathology, [facility], in [place], [place] [address] [place] [address] Harshad Perez M.D. [address] [place] [phone] 03/15/2025 2:30 PM CDT Office Visit Division of Hematology in [place], [place] [address] [place] [phone] Mely Hayden APRN, C.N.P., D.N.P., M.S. [address] [place] [phone] 03/15/2025 4:00 PM CDT Infusion Department of Oncology in [place], [place] [address] [place] [address] Harshad Perez M.D. [address] [place] [phone] 03/16/2025 1:30 PM CDT Comprehensive Visit Division of Pulmonary Medicine in [place], [place] [address] [place] [phone] Morgan Peck M.D. [address] [place] [phone] 03/22/2025 11:10 AM CDT Appointment Department of Laboratory Medicine and Pathology, [facility], in [place], [place] [address] [place] [phone] Harshad Perez M.D. [address] [place] [phone] 03/22/2025 1:00 PM CDT Infusion Department of Oncology in [place], [place] [address] [place] [address] Harshad Perez M.D. [address] [place] [phone] 03/29/2025 9:15 AM CDT Appointment Division of Pulmonary Medicine in [place], [place] [address] [place] [phone] Harshad Perez M.D. [address] [place] [phone] Discharge Disposition: Home or Self Care 03/29/2025 10:30 AM CDT Appointment Department of Laboratory Medicine and Pathology, [facility] in [place], [place] [address] [place] [phone] Harshad Perez M.D. [address] [place] [phone] 03/29/2025 11:15 AM CDT Nurse Only Division of Hematology in [place], [place] [address] [place] [phone] Harshad Perez M.D. [address] [place] [phone] 03/29/2025 1:30 PM CDT Infusion Department of Oncology in [place], [place] [address] [place] [phone] Harshad Perez M.D. [address] [place] [phone] 04/05/2025 10:10 AM CDT Appointment Department of Laboratory Medicine and Pathology, [facility], in [place], [place] [address] [place] [phone] Harshad Perez M.D. [address] [place] [phone] 04/05/2025 12:00 PM CDT Infusion Department of Oncology in [place], [place] [address] [place] [phone] Harshad Perez M.D. [address] [place] [phone] 04/12/2025 11:40 AM CDT Appointment Department of Laboratory Medicine and Pathology, [facility] in [place], [place] [address] [place] [phone] Harshad Perez M.D. [address] [place] [phone] 04/12/2025 1:30 PM CDT Office Visit Division of Hematology in [address] [phone] Tr Hernandez M.D. [address] [place] [phone] 04/12/2025 3:30 PM CDT Infusion Department of Oncology in [place], [place] [address] [place] [phone] Harshad Perez M.D. [address] [place] [phone] 04/19/2025 10:15 AM CDT Infusion Department of Oncology in [place], [place] [address] [place] [phone] Harshad Perez M.D. [address] [place] [phone] 04/26/2025 10:10 AM CDT Appointment Department of Laboratory Medicine and Pathology, [facility], in [place], [place] [address] [place] [phone] Harshad Perez M.D. [address] [place] [phone] 04/26/2025 11:00 AM CDT Nurse Only Division of Hematology in [place], [place] [address] [place] [phone] Harshad Perez M.D. [address] [place] [phone] 04/26/2025 12:00 PM CDT Infusion Department of Oncology in [place], [place] [address] [place] [phone] Harshad Perez M.D. [address] [place] [phone] 04/26/2025 1:30 PM CDT Appointment Division of Pulmonary Medicine in [place], [place] [address] [place] [phone] Harshad Perez M.D. [address] [place] [phone] Discharge Disposition: Home or Self Care 05/03/2025 10:15 AM CDT Infusion Department of Oncology in [place], [place] [address] [place] [phone] Harshad Perez M.D. [address] [place] [phone] 05/10/2025 9:40 AM FLOOR ASSEMBLER Appointment Department of Laboratory Medicine and Pathology, [facility] in [place], [place] [address] [place] [phone] Constantin López M.D. [address] [place] [phone] 05/10/2025 11:30 AM FLOOR ASSEMBLER Office Visit Division of Hematology in [place], [place] [address] [place] [phone] Mely Hayden APRN, C.N.P., D.N.P., M.S. [address] [place] [phone] 05/10/2025 1:00 PM FLOOR ASSEMBLER Infusion Department of Oncology in [place], [place] [address] [place] [phone] Constantin López M.D. [address] [place] [phone] 05/17/2025 10:15 AM FLOOR ASSEMBLER Infusion Department of Oncology in [place], [place] [address] [place] [phone] Constantin López M.D. [address] [place] [phone] 05/24/2025 10:00 AM FLOOR ASSEMBLER Appointment Department of Laboratory Medicine and Pathology, [facility] in [place], [place] [address] [place] [phone] Constantin López M.D. [address] [place] [phone] 05/24/2025 10:45 AM FLOOR ASSEMBLER Appointment Division of Pulmonary Medicine in [address] [phone] Harshad Perez M.D. [address] [place] [phone] Discharge Disposition: Home or Self Care 05/24/2025 12:00 PM FLOOR ASSEMBLER Infusion Department of Oncology in [address] [phone] Constantin López M.D. [address] [place] [phone] 05/31/2025 10:00 AM FLOOR ASSEMBLER Infusion Department of Oncology in [place], [place] [address] [place] [phone] Constantin López M.D. [address] [place] [phone] documented as of this encounter Procedures Procedure Name Priority Date/Time Associated Diagnosis Comments THYROID FUNCTION CASCADE, S Routine 02/11/2025 8:46 AM CDT Multiple Myeloma Not Having Achieved Remission (HCC) HBV DNA DETECT/QUANT, PCR, S Routine 02/11/2025 8:46 AM CDT Multiple Myeloma Not Having Achieved Remission (HCC) ACTIVATED PARTIAL THROMBOPLASTIN TIME (APTT), P Routine 02/11/2025 8:46 AM CDT Multiple Myeloma Not Having Achieved Remission (HCC) PROTHROMBIN TIME (PT), P Routine 025 8:46 AM CDT Multiple Myeloma Not Having Achieved Remission (HCC) CBC WITH DIFFERENTIAL, B Routine 025 8:46 AM CDT Multiple Myeloma Not Having Achieved Remission (HCC) C-REACTIVE PROTEIN (CRP), S/P Routine 02/11/2025 8:46 AM CDT Multiple Myeloma Not Having Achieved Remission (HCC) ALANINE AMINOTRANSFERASE (ALT), S/P Routine 02/11/2025 8:46 AM CDT Multiple Myeloma Not Having Achieved Remission (HCC) ASPARTATE AMINOTRANSFERASE (AST), S/P Routine 02/11/2025 8:46 AM CDT Multiple Myeloma Not Having Achieved Remission (HCC) SODIUM, S/P Routine 02/11/2025 8:46 AM CDT Multiple Myeloma Not Having Achieved Remission (HCC) POTASSIUM, S/P Routine 02/11/2025 8:46 AM CDT Multiple Myeloma Not Having Achieved Remission (HCC) ALKALINE PHOSPHATASE, S/P Routine 02/11/2025 8:46 AM CDT Multiple Myeloma Not Having Achieved Remission (HCC) GLUCOSE, FASTING, S/P Routine 02/11/2025 8:46 AM CDT Multiple Myeloma Not Having Achieved Remission (HCC) CREATININE WITH EGFR, S/P Routine 02/11/2025 8:46 AM CDT Multiple Myeloma Not Having Achieved Remission (HCC) CALCIUM, TOT, S/P Routine 02/11/2025 8:4 6 AM CDT Multiple Myeloma Not Having Achieved Remission (HCC) BILIRUBIN DIRECT, S/P Routine 02/11/2025 8:46 AM CDT Multiple Myeloma Not Having Achieved Remission (HCC) BILIRUBIN, TOT, S/P Routine 02/11/2025 8 :46 AM CDT Multiple Myeloma Not Having Achieved Remission (HCC) ALBUMIN, S/P Routine 02/11/2025 8:46 AM CDT Multiple Myeloma Not Having Achieved Remission (HCC) documented in this encounter Results * (ABNORMAL) Albumin (02/11/2025 8:46 AM CDT) Pathologist [facility] Albumin, S 3.3(L) 3.5 - 5.0 g/dL 02/11/2025 9:55 AM CDT DTL Blood (Blood, Venous) 02/11/2025 8:46 AM CDT 02/11/2025 9:06 AM CDT us Constantin López M.D. LAB BLOOD ADD-ON Final Resu lt [facility] [address] [place] [address], [facility] [place] [address] [place] [address] * (ABNORMAL) Calcium, Total (02/11/2025 8:46 AM CDT) Pathologist [facility] Calcium, Total, S 8.4(L) 8.8 - 10.2 mg/dL 02/11/2025 9:55 AM CDT DTL Blood (Blood, Venous) 02/11/2025 8:46 AM CDT 02/11/2025 9:06 AM CDT Constantin López M.D. LAB BLOOD ADD-ON Final Resu lt Performing Organization Address City/[facility]/ZIP Co de Phone Number [facility] 200 [place] [address], [facility] [place] 200 [place] [address] * Creatinine with Estimated GFR (02/11/2025 8:46 AM CDT) Creatinine 1.21 0.74 - 1.35 mg/dL 02/11/2025 9:55 AM CDT DT Estimated GFR (eGFR) 68 >=60 mL/min/BSA 02/11/2025 9:55 AM CDT DT Comment: Estimated GFR calculated using the 2020 CKD_EPI creatinine equation. Blood (Blood, Venous) 02/11/2025 8:46 AM CDT 02/11/2025 9:06 AM CDT us Constantin López M.D. LAB BLOOD ADD-ON Final Resu lt Performing Organization Address City/[facility]/ZIP Co de Phone Number [facility] 200 [place] [address], [facility] [place] 200 [place] [address] * ALT (Alanine Aminotransferase) (02/11/2025 8:46 AM CDT) Alanine Aminotransferase (ALT), S 15 7 - 55 U/L 02/11/2025 9:55 AM CDT DT Blood (Blood, Venous) 02/11/2025 8:46 AM CDT 02/11/2025 9:06 AM CDT Constantin López M.D. LAB [place]LOOD [place] [id number] * AST (Aspartate Aminotransferase) (02/11/2025 8:46 AM CDT) Aspartate Aminotransferase (AST), S 18 8 - 48 U/L 02/11/2025 9:55 AM CDT DTL Blood (Blood, Venous) 02/11/2025 8:46 AM CDT 02/11/2025 9:06 AM CDT Constantin López M.D. LAB BLOOD ADD-ON Final Resu lt [facility] 200 [place] [address] * Bilirubin, Direct (02/11/2025 8:46 AM CDT) Bilirubin, Direct, S <0.1 0.0 - 0.3 mg/dL 02/11/2025 9:55 AM CDT DTL Blood (Blood, Venous) 02/11/2025 8:46 AM CDT 02/11/2025 9:06 AM CDT Constantin López M.D. LAB BLOOD ADD-ON Final Resu lt [facility] [address] [place] [address] * Bilirubin, Total (02/11/2025 8:46 AM CDT) Bilirubin, Total, S 0.4 0.0 - 1.2 mg/dL 02/11/2025 9:55 AM CDT DTL Blood (Blood, Venous) 02/11/2025 8:46 AM CDT 02/11/2025 9:06 AM CDT Constantin López M.D. LAB BLOOD ADD-ON Final Resu lt Performing Organization Address City/[facility]/ZIP Co de Phone Number [facility] [address] [place] [address] * Alkaline Phosphatase (02/11/2025 8:46 AM CDT) Alkaline Phosphatase, S 68 40 - 129 U/L 02/11/2025 9:55 AM CDT DTL Blood (Blood, Venous) 02/11/2025 8:46 AM CDT 02/11/2025 9:06 AM CDT Constantin López M.D. LAB BLOOD ADD-ON Final Resu lt Performing Organization Address City/[facility]/ZIP Co de Phone Number [facility] [address] [place] [address] * Glucose, Fasting (02/11/2025 8:46 AM CDT) Glucose, P 87 70 - 100 mg/dL 02/11/2025 9:36 AM CDT DTL Last Intake 16 hr 02/11/2025 9:06 AM CDT DTL Blood (Blood, Venous) 02/11/2025 8:46 AM CDT 02/11/2025 9:06 AM CDT Constantin López M.D. LAB BLOOD NON ADD-ON Final Result Performing Organization Address City/[facility]/ZIP Co de Phone Number [facility] [address] [place] [address] * Potassium (02/11/2025 8:46 AM CDT) Potassium, S 4.3 3.6 - 5.2 mmol/L 02/11/2025 9:55 AM CDT DTL Blood (Blood, Venous) 02/11/2025 8:46 AM CDT 02/11/2025 9:06 AM CDT Constantin López M.D. LAB BLOOD ADD-ON Final Resu lt [facility] [address] [place] [address] * Sodium (02/11/2025 8:46 AM CDT) Sodium, S 135 135 - 145 mmol/L 02/11/2025 9:55 AM CDT DTL Blood (Blood, Venous) 02/11/2025 8:46 AM CDT 02/11/2025 9:06 AM CDT Constantin López M.D. LAB BLOOD ADD-ON Final Resu lt [facility] [address] [place] [address] * (ABNORMAL) CBC with Differential, Blood (02/11/2025 8:46 AM CDT) Hemoglobin 10.6(L) 13.2 - 16.6 g/dL 02/11/2025 9:56 AM CDT DTL Hematocrit 33.6(L) 38.3 - 48.6 % 02/11/2025 9:56 AM CDT DTL Erythrocytes 3.59(L) 4.35 - 5.65 x10(12)/L 02/11/2025 9:56 AM CDT DTL MCV 93.6 78.2 - 97.9 fL 02/11/2025 9:56 AM CDT DTL RBC Distrib Width 15.6(H) 11.8 - 14.5 % 02/11/2025 9:56 AM CDT DTL Platelet Count 602(H) 135 - 317 x10(9)/L 02/11/2025 9:56 AM CDT DTL Leukocytes 4.4 3.4 - 9.6 x10(9)/L 02/11/2025 9:56 AM CDT DTL Neutrophils 2.09 1.56 - 6.45 x10(9)/L 02/11/2025 9:56 AM CDT DHPM Lymphocytes 1.94 0.95 - 3.07 x10(9)/L 02/11/2025 9:56 AM CDT DTL Monocytes 0.34 0.26 - 0.81 x10(9)/L 02/11/2025 9:56 AM CDT DTL Eosinophils <0.03 0.03 - 0.48 x10(9)/L 02/11/2025 9:56 AM CDT DTL Basophils 0.03 0.01 - 0.08 x10(9)/L 02/11/2025 9:56 AM CDT DTL Blood (Blood, Venous) 02/11/2025 8:46 AM CDT 02/11/2025 9:18 AM CDT us Constantin López M.D. LAB BLOOD ADD-ON Final Resu lt [facility] [address] [place] [address], [facility] DTL [facility] [address] [place] [address] DHPM [facility] [address] [place] [address] * Thyroid Function Abie (02/11/2025 8:46 AM CDT) [facility] TSH, Sensitive 3.2 0.3 - 4.2 mIU/L 02/11/2025 9:55 AM CDT DTL Blood (Blood, Venous) 02/11/2025 8:46 AM CDT 02/11/2025 9:06 AM CDT Constantin López M.D. LAB BLOOD ADD-ON Final Resu lt [facility] [address] [place] [address] * (ABNORMAL) CRP (C-Reactive Protein) (02/11/2025 8:46 AM CDT) C-Reactive Protein (CRP), S 10.7(H) <5.0 mg/L 02/11/2025 9:55 AM CDT DTL Blood (Blood, Venous) 02/11/2025 8:46 AM CDT 02/11/2025 9:06 AM CDT Constantin López M.D. LAB BLOOD ADD-ON Final Resu lt Performing Organization Address City/[facility]/ZIP Co de Phone Number [facility] [address] [place] [address] * APTT (Activated Partial Thromboplastin Time) (02/11/2025 8:46 AM CDT) Activated Partial Thrombopl Time, P 25 25 - 37 sec 02/11/2025 9:38 AM CDT DTL Blood (Blood, Venous) 02/11/2025 8:46 AM CDT 02/11/2025 9:18 AM CDT Constantin López M.D. LAB BLOOD ADD-ON Final Resu lt [facility] [address] [place] [address] * Prothrombin Time (PT) (02/11/2025 8:46 AM CDT) Prothrombin Time, P 11.9 9.4 - 12.5 sec 02/11/2025 9:38 AM CDT DT INR 1.1 0.9 - 1.1 02/11/2025 9:38 AM CDT DT Comment: ----ADDITIONAL INFORMATION---- Standard intensity warfarin therapeutic range: 2.0 to 3.0 High intensity warfarin therapeutic range: 2.5 to 3.5 Blood (Blood, Venous) 02/11/2025 8:46 AM CDT 02/11/2025 9:18 AM CDT Constantin López M.D. LAB BLOOD ADD-ON Final Resu lt Performing Organization Address [facility]/ZIP Co de Phone Number [facility] [address] [place] [address], [facility] [address] [place] [address] * HBV DNA Detect/Quant, Serum (02/11/2025 8:46 AM CDT) Pathologist [facility] HBV DNA Detect/Quant, S Undetected Undetected IU/mL 02/12/2025 6:37 PM CDT [facility] Comment: Result in log IU/mL is Undetected. ----ADDITIONAL INFORMATION---- The quantification range of this assay is 10 to 1,000,000,000 IU/mL (1.00 log to 9.00 log IU/mL). Testing was performed using the riaz HBV test ([employer] Blood (Blood, Venous) 02/11/2025 8:46 AM CDT 02/11/2025 11:31 AM CDT Constantin López M.D. LAB MICROBIOLOGY - BLOOD OR DERABLES Final Result Performing Organization Address [facility]/State/ZIP Co de Phone Number [facility] [address] [place] [address] [facility] [address] [place] [address] [place] [address] documented in this encounter Visit Diagnoses Diagnosis Multiple Myeloma Not Having Achieved Remission (HCC) documented in this encounter Additional Health Concerns Infection Onset Date Last Indicated Resolved Time Protective Environment 01/27/2025 01/27/2025 documented as of this encounter
--- OUTSIDE RECORDS SUMMARY | 2025-02-11 10:00 | XMS_ITS | Encounter Summary ---
Author Organization [facility] Address [address] [place] [id number] Care Team Providers Care Retail Account Specialist Name Role Phone Unavailable Primary Care Provider Unavailabl e Reason for Referral * Outpatient (Routine) Specialty Diagnoses / Procedures Referred By Teresa carvalho Referred To Contact Hematology Oncology Diagnoses Multiple Myeloma Not Having Achieved Remission (HCC) Constantin López M.D. 200 [place] [address] Phone: tel: fax: [facility] Referral ID Status Reason Start Date Expiration Date Visits Re quested Visits Authorized * Outpatient (Routine) Specialty Diagnoses / Procedures Referred By Teresa carvalho Referred To Contact Hematology Oncology Diagnoses Multiple Myeloma Not Having Achieved Remission (HCC) Constantin López M.D. 200 [place] [address] Phone: tel: fax: [facility] Referral ID Status Reason Start Date Expiration Date Visits Re quested Visits Authorized * Outpatient (Routine) Specialty Diagnoses / Procedures Referred By Teresa carvalho Referred To Contact Hematology Oncology Diagnoses Multiple Myeloma Not Having Achieved Remission (HCC) Constantin López M.D. 200 [place] [address] Phone: tel: fax: [facility] Referral ID Status Reason Start Date Expiration Date Visits Re quested Visits Authorized Scheduling Instructions Mandy Godfrey [phone] David 1:30pm * Outpatient (Routine) Specialty Diagnoses / Procedures Referred By Teresa carvalho Referred To Contact Hematology Oncology Diagnoses Multiple Myeloma Not Having Achieved Remission (HCC) Constantin López M.D. [address] [place] [phone] Phone: tel: fax: [facility] Referral ID Status Reason Start Date Expiration Date Visits Re quested Visits Authorized Scheduling Instructions Mandy Godfrey [phone] Mely 2:30pm * Outpatient (Routine) Specialty Diagnoses / Procedures Referred By Teresa carvalho Referred To Contact Hematology Oncology Diagnoses Multiple Myeloma Not Having Achieved Remission (HCC) Constantin López M.D. 200 [place] [address] Phone: tel: fax: [facility] Referral ID Status Reason Start Date Expiration Date Visits Re quested Visits Authorized * Outpatient (Routine) Specialty Diagnoses / Procedures Referred By Teresa carvalho Referred To Contact Hematology Oncology Diagnoses Multiple Myeloma Not Having Achieved Remission (HCC) Constantin López M.D. 200 [place] [address] Phone: tel: fax: [facility] Referral ID Status Reason Start Date Expiration Date Visits Re quested Visits Authorized Scheduling Instructions Mandy Godfrey [phone] David 2pm * Outpatient (Routine) - Closed Specialty Diagnoses / Procedures Referred By Teresa t Referred To Contact Diagnoses Pain Joint Foot Bilateral Procedures DX Foot Bilateral 3+ Views Constantin López M.D. [address] [place] [phone] Phone: tel: fax: [facility] Referral ID Status Reason Start Date Expiration Date Visits Re quested Visits Authorized [id number] Closed 02/11/2025 05/14/2026 1 1 * Cardiovascular-Diagnostic (Routine) - Authorized Specialty Diagnoses / Procedures Referred By Teresa carvalho Referred To Contact Diagnoses Pain Joint Foot Bilateral Procedures Lower Extremity Arterial (JOSE) - Exercise (Claudication) Constantin López M.D. [address] [place] [phone] Phone: tel: fax: [facility] Referral ID Status Reason Start Date Expiration Date V isits Requested Visits Authorized [id number] Authorized 02/11/2025 05/14/2026 1 1 * Outpatient (Routine) - Authorized Specialty Diagnoses / Procedures Referred By Teresa carvalho Referred To Contact Vascular Medicine Diagnoses Pain Joint Foot Bilateral Constantin López M.D. [address] [place] [phone] Phone: tel: fax: [facility] Referral ID Status Reason Start Date Expiration Date V isits Requested Visits Authorized [id number] Authorized 02/11/2025 08/13/2026 1 1 Reason for Visit * Outpatient (Routine) - Closed Specialty Diagnoses / Procedures Referred By Teresa carvalho Referred To Contact Hematology Oncology Diagnoses Multiple Myeloma Not Having Achieved Remission (HCC) Constantin López M.D. [address] [place] [phone] Phone: tel: fax: [facility] Referral ID Status Reason Start Date Expiration Date Visits Re quested Visits Authorized [id number] Closed 02/10/2025 08/12/2026 1 1 Encounter Details Date Type Department Care Team (Late st Contact Info) Description 02/11/2025 10:00 AM CDT Office Visit Division of Hematology in [place], [place] [address] [place] [address] Constantin López M.D. [address] [place] [address] Pain Joint Foot Bilateral (Primary Dx); Multiple Myeloma Not Having Achieved [...] things needed for daily living? No 01/27/2025 [facility] Utilities Answer Date Recorded In the past 12 months has e electric, gas, oil, or water company threatened to shut off services in your home? No 01/27/2025 Housing Stability Answer Date Recorded What is your living situation today? I [facility] to live 01/27/2025 Sex and Gender Information Value Date Recorded Sex Assigned at Male 01/27/2025 2:34 PM CDT Legal Sex Male 6:33 AM COST SPECIALIST Gender Identity Male 01/27/2025 2:34 PM CDT Sexual Orientation Straight 01/27/2025 2: 34 PM CDT documented as of this encounter Last Filed Vital Signs Vital Sign Reading Time Taken Comments Blood Pressure - - Pulse - - Temperature 36.4 C (97.5 F) 02/11/2025 9:34 AM CDT Respiratory Rate - - Oxygen Saturation - - Inhaled Oxygen Concentration - - Weight 75.5 kg (166 lb 8.9 oz) 02/11/2025 9:34 A M CDT Height 172.6 cm (5' 7.95) 02/11/2025 9:34 AM CD T Body Mass Index 25.36 02/11/2025 9:34 AM CDT documented in this encounter Consult Notes * Constantin López M.D. - 02/11/2025 10:00 AM CDT SUBJECTIVE CHIEF COMPLAINT / REASON FOR VISIT Joey Laird is a 60 y.o. male presenting in referral from Constantin López M.D. for evaluation of No chief complaint on file.. HISTORY OF PRESENT ILLNESS Mr. 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 Bone marrow biopsy Diffuse intense FDG uptake in the axial and appendicular skeleton, for example with SUVMax 15.2 in the right posterior iliac bone (image 211), with innumerable tiny lytic osseous lesions and several larger lytic lesions. As another example, a 2.0 x 1.6 cm lytic lesion in the left superior pubic ramus demonstrates SUVMax 15.4 (image 236). An additional example, FDG uptake at lytic lesion in the L3 vertebral body with pathologic compression fracture in L3 demonstrates SUV max 15.4. Interestingly there was evidence of diffusely increased splenic uptake per outside interpretation although no evidence of hypersplenism. Plasma cell myeloma, with >90% kappa light chain-restricted plasma cells. 2. Negative for amyloid. 3. Hypercellular bone marrow with panhypoplasia. Anemia. 4. No diagnostic morphologic features ofa myelodysplastic syndrome, a myeloproliferative neoplasm, or other primary malignant myeloid neoplasm. MYC rearrangement, the Monotypic Plasma Cells S-phase (MSMRT) result was <2.0% S-phasee 0.8 Per outside records C-reactive protein 53.5 mg per L, elevated uric acid, normal ferritin at 212, hypertriglyceridemia noted in April 2024 with low HDL and elevated LDL at 114 He has a history of longstanding bilateral feet pain, hyperalgesia and allodynia left greater than right along with slight swelling of the left leg but a previous ultrasound venous duplex of the leftlower extremity performed on 01/04/2025 did not reveal any evidence of blood clot. He has previously been given methylprednisolone and tizanidine for foot pain Prediabetes with a glycohemoglobin of 5.7 on 01/11/2025. Dyslipidemia Intrahepatic cysts Former smoker ? Evidence of emphysematous changes Tendinitis Right knee and h/o left knee pain with history of medial meniscal tear Abdominal aortic aneurysm Prostatomegaly Denies any bone pain but does have chronic bilateral foot pain with claudication as outlined above.Denies shortness of breath or chest pain, macroglossia or hand pain. Does have history of bilateralfoot pain as outlined above. OBJECTIVE PHYSICAL EXAM General: He cough performance status 1 Overall looks well and in no acute distress. Alert and oriented. Skin: Mild chronic skin changes noted in both shins and dorsum of both feet. No overt evidence of gangrene. Erythema around the bortezomib injection site anterior abdominal wall Eyes: No scleral icterus. ENT: No macroglossia Heart: Examined and normal. Lungs: Clear. Abdomen: Soft and nontender. BS normal. Erythema around the bortezomib injection site anterior abdominal wall I could not appreciate hepatosplenomegaly Extremities: No edema. Chronic skin changes noted in both shins and dorsum of both feet. No overt evidence of gangrene. Hyperalgesia. ASSESSMENT / PLAN Newly diagnosed IgG kappa multiple myeloma Hyperuricemia Thrombocytosis reactive Lower extremity pain with hyperalgesia and chronic skin changes rule out peripheral arterial disease in a patient with smoking Chronic cough without a known history of COPD but would get pulmonary function tests in a patient who has history of smoking Dyslipidemia Prediabetes Plan It is good to note that he is responding. CRP levels much reduced in comparison to the outside reading. 1) He has not received lenalidomide and will not use it as he is enrolling on clinical trial, the IDEAL study. 2) He has received 2 doses of Nettie bortezomib and dexamethasone; assuming he is eligible for this study this ongoing cycle of DVd would be integrated with cycle 1 of Nettie-Iberdomide, Vd. To that end,he will receive 7 additional doses of daratumumab to complete 9 up front weekly doses of daratumumab, followed by every other week with a skip in the Day 15 dose of Cycle 6 to synchronize the individual components of the regimen for each cycle. Although he has kappa free light chains and minimally elevated troponin and NT proBNP in the setting of renal dysfunction there are no EKG changes and theEKG AI-dashboard shows low probability of amyloidosis. Furthermore bone marrow biopsy was not suggestive. I do not see the need to check fat aspirate at this time. 3) Start allopurinol in the setting of hyperuricemia; advised to drink plenty of fluids. 4) Needs comprehensive dental evaluation prior to starting bisphosphonates 5) Aortic aneurysm and suspicion of peripheral arterial disease given his history of claudication and hyperesthesias with weak dorsalis pedis pulse; check ankle-brachial index plus schedule an appointment with the Vascular Medicine team. Checking fasting lipid profile. Give a trial of ketamine lidocaine trip amitriptyline cream 6) He will need aspirin DVT prophylaxis 7) Monitor glucose levels in the setting of dexamethasone use. 8) Currently on pentamidine. Return per protocol documented in this encounter Plan of Treatment Upcoming Encounters Date Type Department Care Team (Latest Contact Info) Description 03/08/2025 8:00 AM CDT Appointment Department of Laboratory Medicine and Pathology, [facility], in [place], [place] [address] [place] [phone] Constantin López M.D. [address] [place] [phone] 03/08/2025 8:45 AM CDT Infusion Department of Oncology in [place], [place] [address] [place] [address] Constantin López M.D. [address] [place] [phone] 03/08/2025 10:30 AM CDT Comprehensive Visit Department of Vascular Medicine in [place], [place] [address] [place] [phone] Vic Flores M.D. [address] [place] [phone] 03/11/2025 12:30 PM CDT Diagnostic Division of Pulmonary Medicine in [place], [place] [address] [place] [phone] Constantin López M.D. [address] [place] [phone] 03/11/2025 2:00 PM CDT Appointment Department of Vascular Medicine in [place], [place] [address] [place] [phone] Constantin López M.D. [address] [place] [phone] Discharge Disposition: Home or Self Care 03/15/2025 9:00 AM CDT Comprehensive Visit Department of Spine in [place], [place] [address] [place] [phone] Hebert Francis APRN, C.N.P., M.S.N. [address] [place] [phone] 03/15/2025 12:30 PM CDT Appointment Department of Laboratory Medicine and Pathology, [facility] in [place], [place] [address] [place] [phone] Harshad Perez M.D. [address] [place] [phone] 03/15/2025 2:30 PM CDT Office Visit Division of Hematology in [place], [place] [address] [place] [phone] Mely Hayden, ANY, C.N.P., D.N.P., M.S. [address] [place] [phone] 03/15/2025 4:00 PM CDT Infusion Department of Oncology in [place], [place] [address] [place] [phone] Harshad Perez M.D. [address] [place] [phone] 03/16/2025 1:30 PM CDT Comprehensive Visit Division of Pulmonary Medicine in [place], [place] [address] [place] [phone] Morgan Peck M.D. [address] [place] [phone] 03/22/2025 11:10 AM CDT Appointment Department of Laboratory Medicine and Pathology, [facility] in [place], [place] [address] [place] [phone] Harshad Perez M.D. [address] [place] [phone] 03/22/2025 1:00 PM CDT Infusion Department of Oncology in [place], [place] [address] [place] [phone] Harshad Perez M.D. [address] [place] [phone] 03/29/2025 9:15 AM CDT Appointment Division of Pulmonary Medicine in [address] [phone] Harshad Perez M.D. [address] [place] [phone] Discharge Disposition: Home or Self Care 03/29/2025 10:30 AM CDT Appointment Department of Laboratory Medicine and Pathology, [facility] in [place], [place] [address] [place] [address] Harshad Perez M.D. [address] [place] [address] 03/29/2025 11:15 AM CDT Nurse Only Division of Hematology in [place], [place] [address] [place] [address] Harshad Perez M.D. [address] [place] [phone] 03/29/2025 1:30 PM CDT Infusion Department of Oncology in [place], [place] [address] [place] [address] Harshad Perez M.D. [address] [place] [phone] 04/05/2025 10:10 AM CDT Appointment Department of Laboratory Medicine and Pathology, [facility] in [place], [place] [address] [place] [address] Harshad Perez M.D. [address] [place] [phone] 04/05/2025 12:00 PM CDT Infusion Department of Oncology in [place], [place] [address] [place] [address] Harshad Perez M.D. [address] [place] [phone] 04/12/2025 11:40 AM CDT Appointment Department of Laboratory Medicine and Pathology, [facility], in [place], [place] [address] [place] [address] Harshad Perez M.D. [address] [place] [phone] 04/12/2025 1:30 PM CDT Office Visit Division of Hematology in [place], [place] [address] [place] [phone] Tr Hernandez M.D. [address] [place] [phone] 04/12/2025 3:30 PM CDT Infusion Department of Oncology in [place], [place] [address] [place] [address] Harshad Perez M.D. [address] [place] [phone] 04/19/2025 10:15 AM CDT Infusion Department of Oncology in [place], [place] [address] [place] [address] Harshad Perez M.D. [address] [place] [phone] 04/26/2025 10:10 AM CDT Appointment Department of Laboratory Medicine and Pathology, [facility], in [place], [place] [address] [place] [address] Harshad Perez M.D. [address] [place] [phone] 04/26/2025 11:00 AM CDT Nurse Only Division of Hematology in [place], [place] [address] [place] [phone] Harshad Perez M.D. [address] [place] [phone] 04/26/2025 12:00 PM CDT Infusion Department of Oncology in [place], [place] [address] [place] [phone] Harshad Perez M.D. [address] [place] [phone] 04/26/2025 1:30 PM CDT Appointment Division of Pulmonary Medicine in [place], [place] [address] [place] [phone] Harshad Perez M.D. [address] [place] [phone] Discharge Disposition: Home or Self Care 05/03/2025 10:15 AM CDT Infusion Department of Oncology in [address] [phone] Harshad Perez M.D. [address] [place] [phone] 05/10/2025 9:40 AM COST SPECIALIST Appointment Department of Laboratory Medicine and Pathology, [facility] in [address] [phone] Constantin López M.D. [address] [place] [phone] 05/10/2025 11:30 AM COST SPECIALIST Office Visit Division of Hematology in [address] [phone] Mely Hayden APRN, C.N.P., D.N.P., M.S. [address] [place] [phone] 05/10/2025 1:00 PM COST SPECIALIST Infusion Department of Oncology in [address] [phone] Constantin López M.D. [address] [place] [phone] 05/17/2025 10:15 AM COST SPECIALIST Infusion Department of Oncology in [place], [place] [address] [place] [phone] Constantin López M.D. [address] [place] [phone] 05/24/2025 10:00 AM COST SPECIALIST Appointment Department of Laboratory Medicine and Pathology, [facility] in [place], [place] [address] [place] [phone] Constantin López M.D. [address] [place] [phone] 05/24/2025 10:45 AM COST SPECIALIST Appointment Division of Pulmonary Medicine in [place], [place] [address] [place] [phone] Harshad Perez M.D. [address] [place] [phone] Discharge Disposition: Home or Self Care 05/24/2025 12:00 PM COST SPECIALIST Infusion Department of Oncology in [address] [phone] Constantin López M.D. [address] [place] [phone] 05/31/2025 10:00 AM COST SPECIALIST Infusion Department of Oncology in [address] [phone] Constantin López M.D. [address] [place] [phone] Scheduled Orders Name Type Priority Associated Diagnoses Order Schedule Lower Extremity Arterial (JOSE) - Exercise (Claudication) Vascular Ultrasound Routine Pain Joint Foot Bilateral Expected: 02/11/2025, Expires: 05/14/2026 CBC with Differential, Blood Lab Routine Multiple Myeloma Not Having Achieved Remission (HCC) Expected: 03/08/2025, Expires: 03/08/2026 CBC with Differential, Blood Lab Routine Multiple Myeloma Not Having Achieved Remission (HCC) Expected: 03/15/2025, Expires: 03/15/2026 Sodium Lab Routine Multiple Myeloma Not Having Achieved Remission (HCC) Expected: 03/15/2025, Expires: 03/15/2026 Potassium Lab Routine Multiple Myeloma Not Having Achieved Remission (HCC) Expected: 03/15/2025, Expires: 03/15/2026 Glucose, Fasting Lab Routine Multiple Myeloma Not Having Achieved Remission (HCC) Expected: 03/15/2025, Expires: 03/15/2026 Alkaline Phosphatase Lab Routine Multiple Myeloma Not Having Achieved Remission (HCC) Expected: 03/15/2025, Expires: 03/15/2026 Bilirubin, Total Lab Routine Multiple Myeloma Not Having Achieved Remission (HCC) Expected: 03/15/2025, Expires: 03/15/2026 Bilirubin, Direct Lab Routine Multiple Myeloma Not Having Achieved Remission (HCC) Expected: 03/15/2025, Expires: 03/15/2026 AST (Aspartate Aminotransferase) Lab Routine Multiple Myeloma Not Having Achieved Remission (HCC) Expected: 03/15/2025, Expires: 03/15/2026 ALT (Alanine Aminotransferase) Lab Routine Multiple Myeloma Not Having Achieved Remission (HCC) Expected: 03/15/2025, Expires: 03/15/2026 Creatinine with Estimated GFR Lab Routine Multiple Myeloma Not Having Achieved Remission (HCC) Expected: 03/15/2025, Expires: 03/15/2026 Calcium, Total Lab Routine Multiple Myeloma Not Having Achieved Remission (HCC) Expected: 03/15/2025, Expires: 03/15/2026 Albumin Lab Routine Multiple Myeloma Not Having Achieved Remission (HCC) Expected: 03/15/2025, Expires: 03/15/2026 Quantitative M-protein Study Lab Routine Multiple Myeloma Not Having Achieved Remission (HCC) Expected: 03/15/2025, Expires: 06/15/2026 Immunoglobulin Free Light Chains Lab Routine Multiple Myeloma Not Having Achieved Remission (HCC) Expected: 03/15/2025, Expires: 03/15/2026 CBC with Differential, Blood Lab Routine Multiple Myeloma Not Having Achieved Remission (HCC) Expected: 03/22/2025, Expires: 03/22/2026 CBC with Differential, Blood Lab Routine Multiple Myeloma Not Having Achieved Remission (HCC) Expected: 03/29/2025, Expires: 03/29/2026 Sodium Lab Routine Multiple Myeloma Not Having Achieved Remission (HCC) Expected: 03/29/2025, Expires: 03/29/2026 Potassium Lab Routine Multiple Myeloma Not Having Achieved Remission (HCC) Expected: 03/29/2025, Expires: 03/29/2026 Glucose, Fasting Lab Routine Multiple Myeloma Not Having Achieved Remission (HCC) Expected: 03/29/2025, Expires: 03/29/2026 Alkaline Phosphatase Lab Routine Multiple Myeloma Not Having Achieved Remission (HCC) Expected: 03/29/2025, Expires: 03/29/2026 Bilirubin, Total Lab Routine Multiple Myeloma Not Having Achieved Remission (HCC) Expected: 03/29/2025, Expires: 03/29/2026 Bilirubin, Direct Lab Routine Multiple Myeloma Not Having Achieved Remission (HCC) Expected: 03/29/2025, Expires: 03/29/2026 AST (Aspartate Aminotransferase) Lab Routine Multiple Myeloma Not Having Achieved Remission (HCC) Expected: 03/29/2025, Expires: 03/29/2026 ALT (Alanine Aminotransferase) Lab Routine Multiple Myeloma Not Having Achieved Remission (HCC) Expected: 03/29/2025, Expires: 03/29/2026 Creatinine with Estimated GFR Lab Routine Multiple Myeloma Not Having Achieved Remission (HCC) Expected: 03/29/2025, Expires: 03/29/2026 Calcium, Total Lab Routine Multiple Myeloma Not Having Achieved Remission (HCC) Expected: 03/29/2025, Expires: 03/29/2026 Albumin Lab Routine Multiple Myeloma Not Having Achieved Remission (HCC) Expected: 03/29/2025, Expires: 03/29/2026 CBC with Differential, Blood Lab Routine Multiple Myeloma Not Having Achieved Remission (HCC) Expected: 04/05/2025, Expires: 04/05/2026 CBC with Differential, Blood Lab Routine Multiple Myeloma Not Having Achieved Remission (HCC) Expected: 04/12/2025, Expires: 04/12/2026 Sodium Lab Routine Multiple Myeloma Not Having Achieved Remission (HCC) Expected: 04/12/2025, Expires: 04/12/2026 Potassium Lab Routine Multiple Myeloma Not Having Achieved Remission (HCC) Expected: 04/12/2025, Expires: 04/12/2026 Glucose, Fasting Lab Routine Multiple Myeloma Not Having Achieved Remission (HCC) Expected: 04/12/2025, Expires: 04/12/2026 Alkaline Phosphatase Lab Routine Multiple Myeloma Not Having Achieved Remission (HCC) Expected: 04/12/2025, Expires: 04/12/2026 Bilirubin, Total Lab Routine Multiple Myeloma Not Having Achieved Remission (HCC) Expected: 04/12/2025, Expires: 04/12/2026 Bilirubin, Direct Lab Routine Multiple Myeloma Not Having Achieved Remission (HCC) Expected: 04/12/2025, Expires: 04/12/2026 AST (Aspartate Aminotransferase) Lab Routine Multiple Myeloma Not Having Achieved Remission (HCC) Expected: 04/12/2025, Expires: 04/12/2026 ALT (Alanine Aminotransferase) Lab Routine Multiple Myeloma Not Having Achieved Remission (HCC) Expected: 04/12/2025, Expires: 04/12/2026 Creatinine with Estimated GFR Lab Routine Multiple Myeloma Not Having Achieved Remission (HCC) Expected: 04/12/2025, Expires: 04/12/2026 Calcium, Total Lab Routine Multiple Myeloma Not Having Achieved Remission (HCC) Expected: 04/12/2025, Expires: 04/12/2026 Albumin Lab Routine Multiple Myeloma Not Having Achieved Remission (HCC) Expected: 04/12/2025, Expires: 04/12/2026 Quantitative M-protein Study Lab Routine Multiple Myeloma Not Having Achieved Remission (HCC) Expected: 04/12/2025, Expires: 07/13/2026 Immunoglobulin Free Light Chains Lab Routine Multiple Myeloma Not Having Achieved Remission (HCC) Expected: 04/12/2025, Expires: 04/12/2026 CBC with Differential, Blood Lab Routine Multiple Myeloma Not Having Achieved Remission (HCC) Expected: 04/26/2025, Expires: 04/26/2026 Sodium Lab Routine Multiple Myeloma Not Having Achieved Remission (HCC) Expected: 04/26/2025, Expires: 04/26/2026 Potassium Lab Routine Multiple Myeloma Not Having Achieved Remission (HCC) Expected: 04/26/2025, Expires: 04/26/2026 Glucose, Fasting Lab Routine Multiple Myeloma Not Having Achieved Remission (HCC) Expected: 04/26/2025, Expires: 04/26/2026 Alkaline Phosphatase Lab Routine Multiple Myeloma Not Having Achieved Remission (HCC) Expected: 04/26/2025, Expires: 04/26/2026 Bilirubin, Total Lab Routine Multiple Myeloma Not Having Achieved Remission (HCC) Expected: 04/26/2025, Expires: 04/26/2026 Bilirubin, Direct Lab Routine Multiple Myeloma Not Having Achieved Remission (HCC) Expected: 04/26/2025, Expires: 04/26/2026 AST (Aspartate Aminotransferase) Lab Routine Multiple Myeloma Not Having Achieved Remission (HCC) Expected: 04/26/2025, Expires: 04/26/2026 ALT (Alanine Aminotransferase) Lab Routine Multiple Myeloma Not Having Achieved Remission (HCC) Expected: 04/26/2025, Expires: 04/26/2026 Creatinine with Estimated GFR Lab Routine Multiple Myeloma Not Having Achieved Remission (HCC) Expected: 04/26/2025, Expires: 04/26/2026 Calcium, Total Lab Routine Multiple Myeloma Not Having Achieved Remission (HCC) Expected: 04/26/2025, Expires: 04/26/2026 Albumin Lab Routine Multiple Myeloma Not Having Achieved Remission (HCC) Expected: 04/26/2025, Expires: 04/26/2026 Scheduled Referrals Name Type Priority Associated Diagnoses Order Schedule Vascular Medicine - PAD / claudication / ischemia consult (clinic) Outpatient Referral Routine Pain Joint Foot Bilateral Expected: 02/11/2025 (Approximate), Expires: 05/14/2026 Hematology office visit (clinic) [place] [facility]; Myeloma; General Outpatient Referral Routine Multiple Myeloma Not Having Achieved Remission (HCC) Expected: 02/15/2025, Expires: 05/18/2026 Hematology nurse visit (clinic) Outpatient Referral Routine Multiple Myeloma Not Having Achieved Remission (HCC) Expected: 03/01/2025, Expires: 06/01/2026 Hematology office visit (clinic) [facility]; Myeloma; General Outpatient Referral Routine Multiple Myeloma Not Having Achieved Remission (HCC) Expected: 03/15/2025, Expires: 06/15/2026 Hematology office visit (clinic) [facility]; Myeloma; General Outpatient Referral Routine Multiple Myeloma Not Having Achieved Remission (HCC) Expected: 04/12/2025, Expires: 07/13/2026 Hematology nurse visit (clinic) Outpatient Referral Routine Multiple Myeloma Not Having Achieved Remission (HCC) Expected: 03/29/2025, Expires: 06/29/2026 Hematology nurse visit (clinic) Outpatient Referral Routine Multiple Myeloma Not Having Achieved Remission (HCC) Expected: 04/26/2025, Expires: 07/27/2026 documented as of this encounter Results * Albumin (03/01/2025 8:59 AM CDT) Albumin, S 3.5 3.5 - 5.0 g/dL 03/01/2025 9:44 AM CDT DTL Blood (Blood, Venous) 03/01/2025 8:59 AM CDT 03/01/2025 9:06 AM CDT Constantin López M.D. LAB [place]LOOD [place] [address], [facility] [place] [address] * (ABNORMAL) Calcium, Total (03/01/2025 8:59 AM CDT) Pathologist [facility] Calcium, Total, P 8.6(L) 8.8 - 10.2 mg/dL 03/01/2025 9:34 AM CDT [facility] Blood (Blood, Venous) 03/01/2025 8:59 AM CDT 03/01/2025 9:11 AM CDT Constantin López M.D. LAB BLOOD [place] [address], [facility] [place] [address] * Creatinine with Estimated GFR (03/01/2025 8:59 AM CDT) Creatinine 1.11 0.74 - 1.35 mg/dL 03/01/2025 9:34 AM CDT [facility] Estimated GFR (eGFR) 75 >=60 mL/min/BSA 03/01/2025 9:34 AM CDT [facility]ETH Comment: Estimated GFR calculated using the 2020 CKD_EPI creatinine equation. Blood (Blood, Venous) 03/01/2025 8:59 AM CDT 03/01/2025 9:11 AM CDT Constantin López M.D. LAB BLOOD ADD-ON Final Resu lt [facility] [address] [place] [address], [facility] METH [facility] [address] [place] [address] * ALT (Alanine Aminotransferase) (03/01/2025 8:59 AM CDT) Alanine Aminotransferase (ALT), S 14 7 - 55 U/L 03/01/2025 9:44 AM CDT DTL Blood (Blood, Venous) 03/01/2025 8:59 AM CDT 03/01/2025 9:06 AM CDT Constantin López M.D. LAB BLOOD ADD-ON Final Resu lt Performing Organization Address City/[facility]/ZIP Co de Phone Number [facility] [address] [place] [address], [facility] DTL [facility] [address] [place] [address] * AST (Aspartate Aminotransferase) (03/01/2025 8:59 AM CDT) Aspartate Aminotransferase (AST), P 17 8 - 48 U/L 03/01/2025 9:34 AM CDT [facility] Blood (Blood, Venous) 03/01/2025 8:59 AM CDT 03/01/2025 9:11 AM CDT Constantin López M.D. LAB BLOOD ADD-ON Final Resu lt [facility] [address] [place] [address], [facility] METH [facility] [address] [place] [address] * Bilirubin, Direct (03/01/2025 8:59 AM CDT) Bilirubin, Direct, S 0.2 0.0 - 0.3 mg/dL 03/01/2025 9:44 AM CDT DTL Blood (Blood, Venous) 03/01/2025 8:59 AM CDT 03/01/2025 9:06 AM CDT Constantin López M.D. LAB BLOOD ADD-ON Final Resu lt [facility] [address] [place] [address], [facility] DTL [facility] [address] [place] [address] * Bilirubin, Total (03/01/2025 8:59 AM CDT) Bilirubin, Total, P 0.5 0.0 - 1.2 mg/dL 03/01/2025 9:34 AM CDT [facility] Blood (Blood, Venous) 03/01/2025 8:59 AM CDT 03/01/2025 9:11 AM CDT Constantin López M.D. LAB BLOOD ADD-ON Final Resu lt [facility] [address] [place] [address], [facility] METH [facility] [address] [place] [address] * Alkaline Phosphatase (03/01/2025 8:59 AM CDT) Alkaline Phosphatase, S 86 40 - 129 U/L 03/01/2025 9:44 AM CDT DTL Blood (Blood, Venous) 03/01/2025 8:59 AM CDT 03/01/2025 9:06 AM CDT us Constantin López M.D. LAB BLOOD ADD-ON Final Resu lt Performing Organization Address City/[facility]/ZIP Co de Phone Number [facility] [address] [place] [address] * Glucose, Fasting (03/01/2025 8:59 AM CDT) Glucose, P 95 70 - 100 mg/dL 03/01/2025 9:42 AM CDT DTL Last Intake 9 hr 03/01/2025 9:06 AM CDT DTL Blood (Blood, Venous) 03/01/2025 8:59 AM CDT 03/01/2025 9:06 AM CDT Constantin López M.D. LAB BLOOD NON ADD-ON Final Result Performing Organization Address City/[facility]/ZIP Co de Phone Number [facility] [address] [place] [address] * Potassium (03/01/2025 8:59 AM CDT) Potassium, P 4.5 3.6 - 5.2 mmol/L 03/01/2025 9:34 AM CDT [facility] Blood (Blood, Venous) 03/01/2025 8:59 AM CDT 03/01/2025 9:11 AM CDT Constantin López M.D. LAB BLOOD ADD-ON Final Resu lt Performing Organization Address City/[facility]/ZIP Co de Phone Number [facility] [address] M[facility] [address] [place] [address] * (ABNORMAL) Sodium (03/01/2025 8:59 AM CDT) Sodium, P 132(L) 135 - 145 mmol/L 03/01/2025 9:34 AM CDT [facility] Blood (Blood, Venous) 03/01/2025 8:59 AM CDT 03/01/2025 9:11 AM CDT us Constantin López M.D. LAB BLOOD ADD-ON Final Resu lt [facility] [address] [place] [address], [facility] METH [facility] [address] [place] [address] * (ABNORMAL) CBC with Differential, Blood (03/01/2025 8:59 AM CDT) Pathologist [facility] Hemoglobin 12.4(L) 13.2 - 16.6 g/dL 03/01/2025 9:39 AM CDT DTL Hematocrit 37.6(L) 38.3 - 48.6 % 03/01/2025 9:39 AM CDT DTL Erythrocytes 4.15(L) 4.35 - 5.65 x10(12)/L 03/01/2025 9:39 AM CDT DTL MCV 90.6 78.2 - 97.9 fL 03/01/2025 9:39 AM CDT DTL RBC Distrib Width 15.0(H) 11.8 - 14.5 % 03/01/2025 9:39 AM CDT DTL Platelet Count 218 135 - 317 x10(9)/L 03/01/2025 9:39 AM CDT DTL Leukocytes 5.5 3.4 - 9.6 x10(9)/L 03/01/2025 9:39 AM CDT DTL Neutrophils 2.49 1.56 - 6.45 x10(9)/L 03/01/2025 9:39 AM CDT [facility] Lymphocytes 2.23 0.95 - 3.07 x10(9)/L 03/01/2025 9:39 AM CDT DTL Monocytes 0.61 0.26 - 0.81 x10(9)/L 03/01/2025 9:39 AM CDT DTL Eosinophils 0.18 0.03 - 0.48 x10(9)/L 03/01/2025 9:39 AM CDT DTL Basophils <0.03 0.01 - 0.08 x10(9)/L 03/01/2025 9:39 AM CDT DTL Blood (Blood, Venous) 03/01/2025 8:59 AM CDT 03/01/2025 9:11 AM CDT us Constantin López M.D. LAB BLOOD ADD-ON Final Resu lt [facility] [address] [place] [address], [facility] DTL [facility] [address] [place] [address] [facility] [address] [place] [address] * (ABNORMAL) CBC with Differential, Blood (02/22/2025 7:38 AM CDT) Pathologist [facility] Hemoglobin 12.0(L) 13.2 - 16.6 g/dL 02/22/2025 8:29 AM CDT DTL Hematocrit 39.0 38.3 - 48.6 % 02/22/2025 8:29 AM CDT DTL Erythrocytes 4.12(L) 4.35 - 5.65 x10(12)/L 02/22/2025 8:29 AM CDT DTL MCV 94.7 78.2 - 97.9 fL 02/22/2025 8:29 AM CDT DTL RBC Distrib Width 15.1(H) 11.8 - 14.5 % 02/22/2025 8:29 AM CDT DTL Platelet Count 312 135 - 317 x10(9)/L 02/22/2025 8:29 AM CDT DTL Leukocytes 6.4 3.4 - 9.6 x10(9)/L 02/22/2025 8:29 AM CDT DTL Neutrophils 2.87 1.56 - 6.45 x10(9)/L 02/22/2025 8:29 AM CDT [facility] Lymphocytes 2.92 0.95 - 3.07 x10(9)/L 02/22/2025 8:29 AM CDT DTL Monocytes 0.41 0.26 - 0.81 x10(9)/L 02/22/2025 8:29 AM CDT DTL Eosinophils 0.17 0.03 - 0.48 x10(9)/L 02/22/2025 8:29 AM CDT DTL Basophils <0.03 0.01 - 0.08 x10(9)/L 02/22/2025 8:29 AM CDT DTL Blood (Blood, Venous) 02/22/2025 7:38 AM CDT 02/22/2025 7:56 AM CDT Constantin López M.D. LAB BLOOD ADD-ON Final Resu lt Performing Organization Address City/[facility]/ZIP Co de Phone Number [facility] [address] [place] [address], [facility] DTL [facility] [address] [place] [address] [facility] [address] [place] [address] * (ABNORMAL) Immunoglobulin Free Light Chains (02/15/2025 11:51 AM CDT) [place] Free Light Chain, S 146(H) 0.3300 - 1.94 mg/dL 02/15/2025 5:13 PM CDT [facility] Lambda Free Light Chain, S 0.1700(L) 0.5700 - 2.63 mg/dL 02/15/2025 4:59 PM CDT [facility] [place]/Lambda FLC Ratio 859(H) 0.2600 - 1.65 02/15/2025 5:13 PM CDT [facility] Blood (Blood, Venous) 02/15/2025 11:51 AM CDT 02/15/2025 3:58 PM CDT us Constantin López M.D. LAB BLOOD ADD-ON Final Resu lt [facility] [address] [place] [address] [place] [address] * (ABNORMAL) Quantitative M-protein Study (02/15/2025 11:51 AM CDT) Immunoglobulin A (IgA), S 11(L) 61 - 356 mg/dL 02/16/2025 7:17 AM CDT [facility] Immunoglobulin M (IgM), S 8(L) 37 - 286 mg/dL 02/15/2025 5:37 PM CDT [facility] Immunoglobulin G (IgG), S 3930(H) 767 - 1590 mg/dL 02/15/2025 3:58 PM CDT [facility] Therapeutic Antibody Administered? Unspecified 02/15/2025 3:04 PM CDT [facility] M-protein GK 3.769(H) g/dL 02/16/2025 1:49 PM CDT [facility] Glycosylation Yes(A) 02/16/2025 1:49 PM CDT [facility] Flag, M-protein Isotype Positive(A) Negative 02/16/2025 1:49 PM CDT [facility] QMPTS Interpretation IgG kappa 3.769 g/dL Glycosylated. Patients with glycosylated light chains are at higher risk for AL amyloidosis. 02/16/2025 1:49 PM CDT [facility] Comment: ----ADDITIONAL INFORMATION---- The submitted sample was assayed by five separate immunopurifications for IgG, IgA, IgM, kappa and lambda. The result reflects the findings of either no monoclonal protein detected or those monoclonal immunoglobulins that were detected. This test was developed and its performance characteristics determined by [facility] in a manner consistent with CLIA requirements. This test has not been cleared or approved by the [place].S. Food and Drug Administration. Blood (Blood, Venous) 02/15/2025 11:51 AM CDT 02/15/2025 3:04 PM CDT Narrative [facility] - 02/16/2025 1:49 PM CDT Specimen Information: Specimen ID: [id number] Specimen Type: Blood Specimen Collection Start Date: 02/15/2025 11:51 AM Specimen Received Date: 02/15/2025 3:04 PM Specimen ID: [id number] Specimen Type: Blood Specimen Collection Start Date: 02/15/2025 11:51 AM Specimen Received Date: 02/15/2025 3:04 PM us Constantin López M.D. LAB BLOOD ADD-ON Final Resu lt [facility] [address] [place] [address] [facility] [address] [place] [place] [address] [facility] [address] [place] [address] [place] [address] * (ABNORMAL) Albumin (02/15/2025 11:51 AM CDT) Albumin, S 3.3(L) 3.5 - 5.0 g/dL 02/15/2025 12:49 PM CDT DTL Blood (Blood, Venous) 02/15/2025 11:51 AM CDT 02/15/2025 12:09 PM CDT us Constantin López M.D. LAB BLOOD ADD-ON Final Resu lt Performing Organization Address City/[facility]/ZIP Co de Phone Number [facility] [address] [place] [address] * (ABNORMAL) Calcium, Total (02/15/2025 11:51 AM CDT) Calcium, Total, S 8.6(L) 8.8 - 10.2 mg/dL 02/15/2025 12:49 PM CDT DTL Blood (Blood, Venous) 02/15/2025 11:51 AM CDT 02/15/2025 12:09 PM CDT us Constantin López M.D. LAB BLOOD ADD-ON Final Resu lt [facility] [address] [place] [address] * Creatinine with Estimated GFR (02/15/2025 11:51 AM CDT) Creatinine 1.27 0.74 - 1.35 mg/dL 02/15/2025 12:49 PM CDT DTL Estimated GFR (eGFR) 64 >=60 mL/min/BSA 02/15/2025 12:49 PM CDT DTL Comment: Estimated GFR calculated using the 2020 CKD_EPI creatinine equation. Blood (Blood, Venous) 02/15/2025 11:51 AM CDT 02/15/2025 12:09 PM CDT Constantin López M.D. LAB BLOOD ADD-ON Final Resu lt Performing Organization Address City/[facility]/ZIP Co de Phone Number [facility] [address] [address] * ALT (Alanine Aminotransferase) (02/15/2025 11:51 AM CDT) Alanine Aminotransferase (ALT), S 21 7 - 55 U/L 02/15/2025 12:49 PM CDT DTL Blood (Blood, Venous) 02/15/2025 11:51 AM CDT 02/15/2025 12:09 PM CDT Constantin López M.D. LAB BLOOD ADD-ON Final Resu lt [facility] [address] [place] [address], [place] [address] * AST (Aspartate Aminotransferase) (02/15/2025 11:51 AM CDT) Aspartate Aminotransferase (AST), S 27 8 - 48 U/L 02/15/2025 12:49 PM CDT DTL Blood (Blood, Venous) 02/15/2025 11:51 AM CDT 02/15/2025 12:09 PM CDT us Constantin López M.D. LAB BLOOD ADD-ON Final Resu lt [facility] [address] [place] [address] * Bilirubin, Direct (02/15/2025 11:51 AM CDT) Bilirubin, Direct, S <0.1 0.0 - 0.3 mg/dL 02/15/2025 12:49 PM CDT DTL Blood (Blood, Venous) 02/15/2025 11:51 AM CDT 02/15/2025 12:09 PM CDT Constantin López M.D. LAB BLOOD ADD-ON Final Resu lt [facility] [address] [place] [address], [facility] [address] [place] [address] * Bilirubin, Total (02/15/2025 11:51 AM CDT) Bilirubin, Total, S 0.5 0.0 - 1.2 mg/dL 02/15/2025 12:49 PM CDT DTL Blood (Blood, Venous) 02/15/2025 11:51 AM CDT 02/15/2025 12:09 PM CDT us Constantin López M.D. LAB BLOOD ADD-ON Final Resu lt [facility] [address] [place] [address] [place] [address] [address] [place] [address] * Alkaline Phosphatase (02/15/2025 11:51 AM CDT) Alkaline Phosphatase, S 82 40 - 129 U/L 02/15/2025 12:49 PM CDT DTL Blood (Blood, Venous) 02/15/2025 11:51 AM CDT 02/15/2025 12:09 PM CDT Constantin López M.D. LAB BLOOD ADD-ON Final Resu lt Performing Organization Address City/[facility] Co de Phone Number [facility] [address] [place] [address], [facility] [address] [place] [address] * Glucose, Fasting (02/15/2025 11:51 AM CDT) Glucose, P 92 70 - 100 mg/dL 02/15/2025 12:54 PM CDT DTL Last Intake 4 hr 02/15/2025 12:10 PM CDT DTL Blood (Blood, Venous) 02/15/2025 11:51 AM CDT 02/15/2025 12:10 PM CDT Result Cristy López M.D. LAB BLOOD NON ADD-ON Final Result Performing Organization Address [facility] Co de Phone Number [facility] [address] [place] [address], [facility] [address] [place] [address] * Potassium (02/15/2025 11:51 AM CDT) Potassium, S 4.4 3.6 - 5.2 mmol/L 02/15/2025 12:49 PM CDT DTL Blood (Blood, Venous) 02/15/2025 11:51 AM CDT 02/15/2025 12:09 PM CDT us Constantin López M.D. LAB BLOOD ADD-ON Final Resu lt [facility] [address] [place] [address] [address] [place] [address] * (ABNORMAL) Sodium (02/15/2025 11:51 AM CDT) Pathologist [facility] Sodium, S 132(L) 135 - 145 mmol/L 02/15/2025 12:49 PM CDT DTL Blood (Blood, Venous) 02/15/2025 11:51 AM CDT 02/15/2025 12:09 PM CDT us Constantin López M.D. LAB BLOOD ADD-ON Final Resu lt [facility] [address], [place] [address] [address] [place] [address] * (ABNORMAL) CBC with Differential, Blood (02/15/2025 11:51 AM CDT) [facility] Hemoglobin 11.3(L) 13.2 - 16.6 g/dL 02/15/2025 12:39 PM CDT DTL Hematocrit 35.8(L) 38.3 - 48.6 % 02/15/2025 12:39 PM CDT DTL Erythrocytes 3.80(L) 4.35 - 5.65 x10(12)/L 02/15/2025 12:39 PM CDT DTL MCV 94.2 78.2 - 97.9 fL 02/15/2025 12:39 PM CDT DTL RBC Distrib Width 15.6(H) 11.8 - 14.5 % 02/15/2025 12:39 PM CDT DTL Platelet Count 312 135 - 317 x10(9)/L 02/15/2025 12:39 PM CDT DTL Leukocytes 6.0 3.4 - 9.6 x10(9)/L 02/15/2025 12:39 PM CDT DTL Neutrophils 2.66 1.56 - 6.45 x10(9)/L 02/15/2025 12:39 PM CDT [facility] Lymphocytes 2.95 0.95 - 3.07 x10(9)/L 02/15/2025 12:39 PM CDT DTL Monocytes 0.33 0.26 - 0.81 x10(9)/L 02/15/2025 12:39 PM CDT DTL Eosinophils 0.03 0.03 - 0.48 x10(9)/L 02/15/2025 12:39 PM CDT DTL Basophils <0.03 0.01 - 0.08 x10(9)/L 02/15/2025 12:39 PM CDT DTL Blood (Blood, Venous) 02/15/2025 11:51 AM CDT 02/15/2025 12:18 PM CDT us Constantin López M.D. LAB BLOOD ADD-ON Final Resu lt [facility] [address] [place] [address], [facility] DTL [facility] [address] [place] [address] DH[facility] [address] [place] [address] * DX Foot Bilateral 3+ Views (02/11/2025 10:46 AM CDT) Anatomical Region Laterality Modality Lower Extremity, Foot, Muscu loskeletal RST LOS, Musculoskeletal ARZ LOS, Muskuloskeletal FLA LOS Bilateral Digit al Radiography Impressions 02/11/2025 11:32 AM CDT No acute fracture or dislocation. No osseous lytic or sclerotic lesions. 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 Calcaneal plantar spurs. Narrative 02/11/2025 11:32 AM CDT EXAM: DX FOOT BILATERAL 3+ VIEWS Procedure Note Ruth Watts M.D. - 02/11/2025 EXAM: DX FOOT BILATERAL 3+ VIEWS IMPRESSION: No acute fracture or dislocation. No osseous lytic or sclerotic lesions.Mild scattered degenerative arthritis, more pronounced at the 1st MCPjoints. Calcaneal plantar spurs. Constantin López M.D. IM DIAGNOSTIC IMAGING PROC EDURES Final Result documented in this encounter Visit Diagnoses Diagnosis Pain Joint Foot Bilateral- Primary Multiple Myeloma Not Having Achieved Remission (HCC) Pain Joint Foot Bilateral Multiple Myeloma Not Having Achieved Remission (HCC) Thoracic Aortic Aneurysm Without Rupture Unspecified documented in this encounter Additional Health Concerns Infection Onset Date Last Indicated Resolved Time Protective Environment 01/27/2025 01/27/2025 documented as of this encounter
--- OUTSIDE RECORDS SUMMARY | 2025-02-11 10:23 | XMS_ITS | Encounter Summary ---
Author Organization [facility] Address [address] [place] [address] Care Team Providers Care Shaper And Presser Name Role Phone Unavailable Primary Care Provider Unavailabl e Reason for Referral * Outpatient (Routine) - Closed Specialty Diagnoses / Procedures Referred By Teresa carvalho Referred To Contact Diagnoses Pain Joint Foot Bilateral Procedures DX Foot Bilateral 3+ Views Constantin López M.D. [address] [place] [address] Phone: tel: fax: [facility] Referral ID Status Reason Start Date Expiration Date Visits Re quested Visits Authorized [id number] Closed 02/11/2025 05/14/2026 1 1 Reason for Visit * Outpatient (Routine) - Closed Specialty Diagnoses / Procedures Referred By Teresa carvalho Referred To Contact Diagnoses Pain Joint Foot Bilateral Procedures DX Foot Bilateral 3+ Views Constantin López M.D. [address] [place] [address] Phone: tel: fax: [facility] Referral ID Status Reason Start Date Expiration Date Visits Re quested Visits Authorized [id number] Closed 02/11/2025 05/14/2026 1 1 Encounter Details Date Type Department Care Team (Latest Contact Info) Description 02/11/2025 10:23 AM CDT - 02/11/2025 11:59 PM CDT Hospital Encounter Department of Radiology, [facility], in [place], [place] [address] [place] [phone] Constantin López M.D. [address] [place] [address] Pain Joint Foot Bilateral Discharge Disposition: Home or Self Care Social [...] things needed for daily living? No 01/27/2025 [facility] Utilities Answer Date Recorded In the past 12 months has e [employer], gas, oil, or water [employer] threatened to shut off services in your home? No 01/27/2025 Housing Stability Answer Date Recorded What is your living situation today? I have a [facility] place to live 01/27/2025 Sex and Gender Information Value Date Recorded Sex Assigned at Male 01/27/2025 2:34 PM CDT Legal Sex Male 6:33 AM TECHNOLOGIST INFECTIOUS DISEASE Gender Identity Male 01/27/2025 2:34 PM CDT Sexual Orientation Straight 01/27/2025 2: 34 PM CDT documented as of this encounter Medications at Time of Discharge allopurinoL (Zyloprim) 100 mg tablet Take 3 tablets (300 mg) orally as the initial dose. Then take 1 tablet (100 mg) orally once daily. 33 tablet 02/11/2025 amitriptyline 2%-ketamine 5%-lidocaine 5% in vanicream Apply topically 4 (four) times a day. Apply to both feet 30 g 1 03/01/2025 9:06 AM CDT 02/11/[address] tabletIndication s:Multiple Myeloma Not Having Achieved Remission (HCC) Take 1 tablet (325 mg total) by mouth daily. 100 tablet 3 01/27/2025 calcium carbonate-vitami n D3 1,500 mg (600 mg calcium)-10 mcg (400 Unit) per tablet Take 1 tablet by mouth 2 (two) times a day with meals. 90 tablet 02/11/2025 lenalidomide (Revlimid) 10 mg capsuleIndicatio ns:Multiple Myeloma [...] Appointment Department of Laboratory Medicine and Pathology, [facility] in [place], [place] [address] [place] [address] Constantin López M.D. [address] [place] [phone] 03/08/2025 8:45 AM CDT Infusion Department of Oncology in [place], [place] [address] [place] [address] Constantin López M.D. [address] [place] [address] 03/08/2025 10:30 AM CDT Comprehensive Visit Department of Vascular Medicine in [place], [place] [address] [place] [address] Vic Flores M.D. [address] [place] [phone] 03/11/2025 12:30 PM CDT Diagnostic Division of Pulmonary Medicine in [place], [place] [address] [place] [phone] Constantin López M.D. [address] [place] [phone] 03/11/2025 2:00 PM CDT Appointment Department of Vascular Medicine in [place], [place] [address] [place] [phone] Constantin López M.D. [address] [place] [phone] Discharge Disposition: Home or Self Care 03/15/2025 9:00 AM CDT Comprehensive Visit Department of Spine in [place], [place] [address] [place] [address] Hebert Francis APRN, C.N.P., M.S.N. [address] [place] [phone] 03/15/2025 12:30 PM CDT Appointment Department of Laboratory Medicine and Pathology, [facility] in [place], [place] [address] [place] [phone] Harshad Perez M.D. [address] [place] [phone] 03/15/2025 2:30 PM CDT Office Visit Division of Hematology in [place], [place] [address] [place] [phone] Mely Hayden APRN, C.N.P., D.N.P., M.S. [address] [place] [phone] 03/15/2025 4:00 PM CDT Infusion Department of Oncology in [place], [place] [address] [place] [phone] Harshad Perez M.D. [address] [place] [phone] 03/16/2025 1:30 PM CDT Comprehensive Visit Division of Pulmonary Medicine in [place], [place] [address] [place] [phone] Morgan Peck M.D. [address] [place] [phone] 03/22/2025 11:10 AM CDT Appointment Department of Laboratory Medicine and Pathology, [facility] in [place], [place] [address] [place] [phone] Harshad Perez M.D. [address] [place] [phone] 03/22/2025 1:00 PM CDT Infusion Department of Oncology in [place], [place] [address] [place] [phone] Harshad Perez M.D. [address] [place] [phone] 03/29/2025 9:15 AM CDT Appointment Division of Pulmonary Medicine in [place], [place] [address] [place] [phone] Harshad Perez M.D. [address] [place] [phone] Discharge Disposition: Home or Self Care 03/29/2025 10:30 AM CDT Appointment Department of Laboratory Medicine and Pathology, [facility] in [place], [place] [address] [place] [address] Harshad Perez M.D. [address] [place] [phone] 03/29/2025 11:15 AM CDT Nurse Only Division of Hematology in [place], [place] [address] [place] [address] Harshad Perez M.D. [address] [place] [phone] 03/29/2025 1:30 PM CDT Infusion Department of Oncology in [place], [place] [address] [place] [address] Harshad Perez M.D. [address] [place] [phone] 04/05/2025 10:10 AM CDT Appointment Department of Laboratory Medicine and Pathology, [facility], in [place], [place] [address] [place] [address] Harshad Perez M.D. [address] [place] [phone] 04/05/2025 12:00 PM CDT Infusion Department of Oncology in [place], [place] [address] [place] [address] Harshad Perez M.D. [address] [place] [phone] 04/12/2025 11:40 AM CDT Appointment Department of Laboratory Medicine and Pathology, [facility], in [place], [place] [address] [place] [address] Harshad Perez M.D. [address] [place] [phone] 04/12/2025 1:30 PM CDT Office Visit Division of Hematology in [place], [place] [address] [place] [phone] Tr Hernandez M.D. [address] [place] [phone] 04/12/2025 3:30 PM CDT Infusion Department of Oncology in [place], [place] [address] [place] [phone] Harshad Perez M.D. [address] [place] [phone] 04/19/2025 10:15 AM CDT Infusion Department of Oncology in [place], [place] [address] [place] [phone] Harshad Perez M.D. [address] [place] [phone] 04/26/2025 10:10 AM CDT Appointment Department of Laboratory Medicine and Pathology, [facility], in [place], [place] [address] [place] [phone] Harshad Perez M.D. [address] [place] [phone] 04/26/2025 11:00 AM CDT Nurse Only Division of Hematology in [place], [place] [address] [place] [phone] Harsahd Perez M.D. [address] [place] [phone] 04/26/2025 12:00 PM CDT Infusion Department of Oncology in [place], [place] [address] [place] [phone] Harshad Perez M.D. [address] [place] [phone] 04/26/2025 1:30 PM CDT Appointment Division of Pulmonary Medicine in [place], [place] [address] [place] [phone] Harshad Perez M.D. [address] [place] [phone] Discharge Disposition: Home or Self Care 05/03/2025 10:15 AM CDT Infusion Department of Oncology in [place], [place] [address] [place] [phone] Harshad Perez M.D. [address] [place] [phone] 05/10/2025 9:40 AM TECHNOLOGIST INFECTIOUS DISEASE Appointment Department of Laboratory Medicine and Pathology, [facility] in [place], [place] [address] [place] [phone] Constantin López M.D. [address] [place] [phone] 05/10/2025 11:30 AM TECHNOLOGIST INFECTIOUS DISEASE Office Visit Division of Hematology in [address] [phone] Mely Hayden, ANY, C.N.P., D.N.P., M.S. [address] [place] [phone] 05/10/2025 1:00 PM TECHNOLOGIST INFECTIOUS DISEASE Infusion Department of Oncology in [place], [place] [address] [place] [phone] Constantin López M.D. [address] [place] [phone] 05/17/2025 10:15 AM TECHNOLOGIST INFECTIOUS DISEASE Infusion Department of Oncology in [place], [place] [address] [place] [phone] Constantin López M.D. [address] [place] [phone] 05/24/2025 10:00 AM TECHNOLOGIST INFECTIOUS DISEASE Appointment Department of Laboratory Medicine and Pathology, [facility], in [place], [place] [address] [place] [phone] Constantin López M.D. [address] [place] [phone] 05/24/2025 10:45 AM TECHNOLOGIST INFECTIOUS DISEASE Appointment Division of Pulmonary Medicine in [address] [phone] Harshad Perez M.D. [address] [place] [phone] Discharge Disposition: Home or Self Care 05/24/2025 12:00 PM TECHNOLOGIST INFECTIOUS DISEASE Infusion Department of Oncology in [address] [address] Constantin López M.D. [address] [place] [phone] 05/31/2025 10:00 AM TECHNOLOGIST INFECTIOUS DISEASE Infusion Department of Oncology in [address] [phone] Constantin López M.D. [address] [place] [phone] documented as of this encounter Procedures Procedure Name Priority Date/Time Associated Diagnosis Comments DX FOOT BILATERAL 3+ VIEWS RAD - Routine (most inpatients and all outpatients) 02/11/2025 10:46 AM CDT Pain Joint Foot Bilateral documented in this encounter Results * DX Foot Bilateral 3+ Views (02/11/2025 [...] encounter Visit Diagnoses Diagnosis Pain Joint Foot Bilateral documented in this encounter Additional Health Concerns Infection Onset Date Last Indicated Resolved Time Protective Environment 01/27/2025 01/27/2025 documented as of this encounter
--- OUTSIDE RECORDS SUMMARY | 2025-02-15 11:28 | XMS_ITS | Encounter Summary ---
Author Organization [facility] Address [address] [place] [address] Care Team Providers Care Help Desk Intern Name Role Phone Unavailable Primary Care Provider Unavailabl e Reason for Visit * Episode Based Medications (Routine) - Authorized Specialty Diagnoses / Procedures Referred By Teresa carvalho Referred To Contact Diagnoses Multiple Myeloma Not Having Achieved Remission (HCC) Procedures AK ONDANSETRON HCL INJECTION AK DARATUMUMAB, HYALURONIDASE AK BORTEZOMIB INJECTION Constantin López M.D. 200 [place] [address] Phone: tel: fax: Constantin López M.D. 200 [place] [address] Phone: tel: fax: Referral ID Status Reason Start Date Expiration Date V isits Requested Visits Authorized [id number] Authorized 02/15/2025 05/18/2026 99 99 Encounter Details Date Type Department Care Team (Latest Contact Info) Description 02/15/2025 11:28 AM CDT - 02/15/2025 11:59 PM CDT Hospital Encounter Department of Laboratory Medicine and Pathology, [facility], in [place], [place] [address] [place] [phone] Constantin López M.D. [address] [place] [phone] Multiple Myeloma Not Having Achieved Remission (HCC); Thoracic Aortic Aneurysm Without Rupture Unspecified Discharge Disposition: Home or Self Care [...] things needed for daily living? No 01/27/2025 [facility] Utilities Answer Date Recorded In the past 12 months has th e electric, gas, oil, or water company threatened to shut off services in your home? No 01/27/2025 Housing Stability Answer Date Recorded What is your living situation today? 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 90 tablet 02/11/2025 dexAMETHasone (Decadron) 4 mg tabletIndication s:Multiple Myeloma Not Having Achieved Remission (HCC) Take 10 tablets (40 mg total) by mouth once a week for 4 doses. Take on days 1, 8, 15, and 22. If it is a day you are receiving daratumumab, take dexAMETHasone with you to infusion appointment. 40 tablet 02/15/2025 lenalidomide (Revlimid) 10 mg capsuleIndicatio ns:Multiple Myeloma [...] tablet 3 01/28/2025 12:05 PM CDT 01/27/2025 Research IRB [id number] iberdomide (CC-220) 0.75 mg capsuleIndicatio ns:Multiple Myeloma Not Having Achieved Remission (HCC) Take 1 capsule (0.75 mg total) by mouth daily for 21 days. Take with or without food, at approximately the same time each day on days 1-21. 1 Bottle 02/15/2025 5 dexAMETHasone (Decadron) 4 mg tabletIndication s:Multiple Myeloma [...] Appointment Department of Laboratory Medicine and Pathology, [facility] in [place], [place] [address] [place] [address] Constantin López M.D. [address] [place] [address] 03/08/2025 8:45 AM CDT Infusion Department of Oncology in [place], [place] [address] [place] [phone] Constantin López M.D. [address] [place] [phone] 03/08/2025 10:30 AM CDT Comprehensive Visit Department of Vascular Medicine in [place], [place] [address] [place] [phone] Vic Flores M.D. [address] [place] [phone] 03/11/2025 12:30 PM CDT Diagnostic Division of Pulmonary Medicine in [place], [place] [address] [place] [phone] Constantin López M.D. [address] [place] [phone] 03/11/2025 2:00 PM CDT Appointment Department of Vascular Medicine in [place], [place] [address] [place] [phone] Constantin López M.D. [address] [place] [phone] Discharge Disposition: Home or Self Care 03/15/2025 9:00 AM CDT Comprehensive Visit Department of Spine in [place], [place] [address] [place] [phone] Hebert Francis APRN, C.N.P., M.S.N. [address] [place] [phone] 03/15/2025 12:30 PM CDT Appointment Department of Laboratory Medicine and Pathology, [facility], in [place], [place] [address] [place] [phone] Harshad Perez M.D. [address] [place] [phone] 03/15/2025 2:30 PM CDT Office Visit Division of Hematology in [place], [place] [address] [place] [phone] Mely Hayden APRN, C.N.P., D.N.P., M.S. [address] [place] [phone] 03/15/2025 4:00 PM CDT Infusion Department of Oncology in [place], [place] [address] [place] [phone] Harshad Perez M.D. [address] [place] [phone] 03/16/2025 1:30 PM CDT Comprehensive Visit Division of Pulmonary Medicine in [place], [place] [address] [place] [phone] Morgan Peck M.D. [address] [place] [phone] 03/22/2025 11:10 AM CDT Appointment Department of Laboratory Medicine and Pathology, [facility] in [place], [place] [address] [place] [phone] Harshad Perez M.D. [address] [place] [phone] 03/22/2025 1:00 PM CDT Infusion Department of Oncology in [place], [place] [address] [place] [phone] Harshad Perez M.D. [address] [place] [phone] 03/29/2025 9:15 AM CDT Appointment Division of Pulmonary Medicine in [place], [place] [address] [place] [address] Harshad Perez M.D. [address] [place] [phone] Discharge Disposition: Home or Self Care 03/29/2025 10:30 AM CDT Appointment Department of Laboratory Medicine and Pathology, [facility] in [place], [place] [address] [place] [address] Harshad Perez M.D. [address] [place] [phone] 03/29/2025 11:15 AM CDT Nurse Only Division of Hematology in [place], [place] [address] [place] [address] Harshad Perez M.D. [address] [place] [phone] 03/29/2025 1:30 PM CDT Infusion Department of Oncology in [place], [place] [address] [place] [address] Harshad Perez M.D. [address] [place] [phone] 04/05/2025 10:10 AM CDT Appointment Department of Laboratory Medicine and Pathology, [facility], in [place], [place] [address] [place] [address] Harshad Perez M.D. [address] [place] [phone] 04/05/2025 12:00 PM CDT Infusion Department of Oncology in [place], [place] [address] [place] [address] Harshad Perez M.D. [address] [place] [phone] 04/12/2025 11:40 AM CDT Appointment Department of Laboratory Medicine and Pathology, [facility] in [place], [place] [address] [place] [address] Harshad Perez M.D. [address] [place] [phone] 04/12/2025 1:30 PM CDT Office Visit Division of Hematology in [place], [place] [address] [place] [phone] Tr Hernandez M.D. [address] [place] [phone] 04/12/2025 3:30 PM CDT Infusion Department of Oncology in [place], [place] [address] [place] [address] Harshad Perez M.D. [address] [place] [phone] 04/19/2025 10:15 AM CDT Infusion Department of Oncology in [place], [place] [address] [place] [address] Harshad Perez M.D. [address] [place] [phone] 04/26/2025 10:10 AM CDT Appointment Department of Laboratory Medicine and Pathology, [facility], in [place], [place] [address] [place] [address] Harshad Perez M.D. [address] [place] [phone] 04/26/2025 11:00 AM CDT Nurse Only Division of Hematology in [place], [place] [address] [place] [phone] Harshad Perez M.D. [address] [place] [phone] 04/26/2025 12:00 PM CDT Infusion Department of Oncology in [place], [place] [address] [place] [phone] Harshad Perez M.D. [address] [place] [phone] 04/26/2025 1:30 PM CDT Appointment Division of Pulmonary Medicine in [place], [place] [address] [place] [phone] Harshad Perez M.D. [address] [place] [phone] Discharge Disposition: Home or Self Care 05/03/2025 10:15 AM CDT Infusion Department of Oncology in [place], [place] [address] [place] [phone] Harshad Perez M.D. 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 [address] [place] [phone] 05/10/2025 11:30 AM OIL DERRICK OPERATOR Office Visit Division of Hematology in [address] [phone] Mely Hayden APRN, C.N.P., D.N.P., M.S. [address] [place] [phone] 05/10/2025 1:00 PM OIL DERRICK OPERATOR Infusion Department of Oncology in [place], [place] [address] [place] [phone] Constantin López M.D. [address] [place] [phone] 05/17/2025 10:15 AM OIL DERRICK OPERATOR Infusion Department of Oncology in [place], [place] [address] [place] [phone] Constantin López M.D. [address] [place] [phone] 05/24/2025 10:00 AM OIL DERRICK OPERATOR Appointment Department of Laboratory Medicine and Pathology, [facility] in [place], [place] [address] [place] [phone] Constantin López M.D. [address] [place] [phone] 05/24/2025 10:45 AM OIL DERRICK OPERATOR Appointment Division of Pulmonary Medicine in [address] [phone] Harshad Perez M.D. [address] [place] [phone] Discharge Disposition: Home or Self Care 05/24/2025 12:00 PM OIL DERRICK OPERATOR Infusion Department of Oncology in [place], [place] [address] [place] [phone] Constantin López M.D. [address] [place] [phone] 05/31/2025 10:00 AM OIL DERRICK OPERATOR Infusion Department of Oncology in [place], [place] [address] [place] [phone] Constantin López M.D. [address] [place] [phone] documented as of this encounter Procedures Procedure Name Priority Date/Time Associated Diagnosis Comments QUANTITATIVE M-PROTEIN STUDY, S Routine 02/15/2025 11:51 AM CDT Multiple Myeloma Not Having Achieved Remission (HCC) LIPID PANEL, S Routine 02/15/2025 11:51 AM CDT Thoracic Aortic Aneurysm Without Rupture Unspecified IMMUNOGLOBULIN FREE LIGHT CHAINS, S Routine 02/15/2025 11:51 AM CDT Multiple Myeloma Not Having Achieved Remission (HCC) CBC WITH DIFFERENTIAL, B Routine 025 11:51 AM CDT Multiple Myeloma Not Having Achieved Remission (HCC) ALANINE AMINOTRANSFERASE (ALT), S/P Routine 02/15/2025 11:51 AM CDT Multiple Myeloma Not Having Achieved Remission (HCC) ASPARTATE AMINOTRANSFERASE (AST), S/P Routine 02/15/2025 11:51 AM CDT Multiple Myeloma Not Having Achieved Remission (HCC) SODIUM, S/P Routine 02/15/2025 11:51 AM CDT Multiple Myeloma Not Having Achieved Remission (HCC) POTASSIUM, S/P Routine 02/15/2025 11:51 AM CDT Multiple Myeloma Not Having Achieved Remission (HCC) ALKALINE PHOSPHATASE, S/P Routine 02/15/2025 11:51 AM CDT Multiple Myeloma Not Having Achieved Remission (HCC) GLUCOSE, FASTING, S/P Routine 02/15/2025 11:51 AM CDT Multiple Myeloma Not Having Achieved Remission (HCC) CREATININE WITH EGFR, S/P Routine 02/15/2025 11:51 AM CDT Multiple Myeloma Not Having Achieved Remission (HCC) CALCIUM, TOT, S/P Routine 02/15/2025 11: 51 AM CDT Multiple Myeloma Not Having Achieved Remission (HCC) BILIRUBIN DIRECT, S/P Routine 02/15/2025 11:51 AM CDT Multiple Myeloma Not Having Achieved Remission (HCC) BILIRUBIN, TOT, S/P Routine 02/15/2025 1 1:51 AM CDT Multiple Myeloma Not Having Achieved Remission (HCC) ALBUMIN, S/P Routine 02/15/2025 11:51 AM CDT Multiple Myeloma Not Having Achieved Remission (HCC) documented in this encounter Results * (ABNORMAL) Lipid Panel (02/15/2025 11:51 AM CDT) Triglycerides 351(H) mg/dL 02/15/2025 12:49 PM CDT DTL Comment: ----REFERENCE VALUE---- Normal: <150 mg/dL Borderline High: 150-199 mg/dL High: 200-499 mg/dL Very High: > or =500 mg/dL Cholesterol, Total 198 mg/dL 2024 12:49 PM CDT DTL Comment: ----REFERENCE VALUE---- Desirable: < 200 mg/dL Borderline High: 200 - 239 mg/dL High: > or = 240 mg/dL Cholesterol, LDL, Calculated 108 mg/dL 02/15/2025 12:49 PM CDT DTL Comment: ----REFERENCE VALUE---- Desirable: <100 mg/dL Above Desirable: 100-129 mg/dL Borderline High: 130-159 mg/dL High: 160-189 mg/dL Very High: >=190 mg/dL ----ADDITIONAL INFORMATION---- LDL cholesterol calculated using the Conway/NIH equation. Cholesterol, HDL, S 29(L) >=40 mg/dL 02/15/2025 12:49 PM CDT DTL Cholesterol, Non-HDL, Calculated 169(H) mg/dL 02/15/2025 12:49 PM CDT DTL Comment: ----REFERENCE VALUE---- Desirable: <130 mg/dL Above Desirable: 130-159 mg/dL Borderline High: 160-189 mg/dL High: 190-219 mg/dL Very High: > or =220 mg/dL Fasting (8 HR or more) No 02/15/2025 11:51 AM CDT DTL Blood (Blood, Venous) 02/15/2025 11:51 AM CDT 02/15/2025 12:09 PM CDT Constantin López M.D. LAB BLOOD ADD-ON Final Resu lt Performing Organization Address City/[facility]/ZIP Co de Phone Number [facility] [place] [address] [place] [address], [facility] DTL [facility] [address] [place] [address] * (ABNORMAL) Immunoglobulin Free Light Chains (02/15/2025 11:51 AM CDT) [place] Free Light Chain, S 146(H) 0.3300 - 1.94 mg/dL 02/15/2025 5:13 PM CDT [facility] Lambda Free Light Chain, S 0.1700(L) 0.5700 - 2.63 mg/dL 02/15/2025 4:59 PM CDT [facility] [place]/Lambda FLC Ratio 859(H) 0.2600 - 1.65 02/15/2025 5:13 PM CDT [facility] Blood (Blood, Venous) 02/15/2025 11:51 AM CDT 02/15/2025 3:58 PM CDT Constantin López M.D. LAB BLOOD ADD-ON Final Resu lt Performing Organization Address City/[facility]/ZIP Co de Phone Number [facility] [address] [place] [address] [facility] [address] [place] [address] * (ABNORMAL) Quantitative M-protein Study (02/15/2025 11:51 [...] developed and its performance characteristics determined by [facility] in a manner consistent with CLIA requirements. This test has not been cleared or approved by the U.S. Food and Drug Administration. Blood (Blood, Venous) 02/15/2025 11:51 AM CDT 02/15/2025 3:04 PM CDT Narrative [facility] - 02/16/2025 1:49 PM CDT Specimen Information: Specimen ID: [id number] Specimen Type: Blood Specimen Collection Start Date: 02/15/2025 11:51 AM Specimen Received Date: 02/15/2025 3:04 PM Specimen ID: [id number] Specimen Type: Blood Specimen Collection Start Date: 02/15/2025 11:51 AM Specimen Received Date: 02/15/2025 3:04 PM us Constantin López M.D. LAB BLOOD ADD-ON Final Resu lt [facility] [address] [place] [address] [facility] [address] [place] [address] [facility] [address] [place] [address] [place] [address] * (ABNORMAL) Albumin (02/15/2025 11:51 AM CDT) Albumin, S 3.3(L) 3.5 - 5.0 g/dL 02/15/2025 12:49 PM CDT DTL Blood (Blood, Venous) 02/15/2025 11:51 AM CDT 02/15/2025 12:09 PM CDT Constantin López M.D. LAB BLOOD ADD-ON Final Resu lt [facility] [place] [address] [place] [address], [facility] [address] [place] [address] * (ABNORMAL) Calcium, Total (02/15/2025 11:51 AM CDT) Calcium, Total, S 8.6(L) 8.8 - 10.2 mg/dL 02/15/2025 12:49 PM CDT DTL Blood (Blood, Venous) 02/15/2025 11:51 AM CDT 02/15/2025 12:09 PM CDT Constantin López M.D. LAB BLOOD ADD-ON Final Resu lt [facility] [place] [address] [place] [address], [facility] [address] [place] [address] * Creatinine with Estimated GFR (02/15/2025 11:51 [...] ADD-ON Final Resu lt Performing Organization Address City/[facility]/ZIP Co de Phone Number [facility] [place] [address] [place] [address], [facility] 200 [place] [address] * ALT (Alanine Aminotransferase) (02/15/2025 11:51 AM CDT) Alanine Aminotransferase (ALT), S 21 7 - 55 U/L 02/15/2025 12:49 PM CDT DTL Blood (Blood, Venous) 02/15/2025 11:51 AM CDT 02/15/2025 12:09 PM CDT us Constantin López M.D. LAB BLOOD ADD-ON Final Resu lt Performing Organization Address City/[facility]/ZIP Co de Phone Number [facility] [place] [address] [place] [address], [facility] [address] [place] [id number] * AST (Aspartate Aminotransferase) (02/15/2025 11:51 AM CDT) Aspartate Aminotransferase (AST), S 27 8 - 48 U/L 02/15/2025 12:49 PM CDT DTL Blood (Blood, Venous) 02/15/2025 11:51 AM CDT 02/15/2025 12:09 PM CDT us Constantin López M.D. LAB BLOOD ADD-ON Final Resu lt Performing Organization Address City/[facility]/ZIP Co de Phone Number [facility] [place] [address] [place] [address], [facility] [address] [place] [address] * Bilirubin, Direct (02/15/2025 11:51 AM CDT) Bilirubin, Direct, S <0.1 0.0 - 0.3 mg/dL 02/15/2025 12:49 PM CDT DTL Blood (Blood, Venous) 02/15/2025 11:51 AM CDT 02/15/2025 12:09 PM CDT Constantin López M.D. LAB BLOOD ADD-ON Final Resu lt [facility] [place] [address] [place] [address], [facility] [address] [place] [address] * Bilirubin, Total (02/15/2025 11:51 AM CDT) Bilirubin, Total, S 0.5 0.0 - 1.2 mg/dL 02/15/2025 12:49 PM CDT DTL Blood (Blood, Venous) 02/15/2025 11:51 AM CDT 02/15/2025 12:09 PM CDT us Constantin López M.D. LAB BLOOD ADD-ON Final Resu lt [facility] [place] [address] [place] [address], [facility] [address] [place] [address] * Alkaline Phosphatase (02/15/2025 11:51 AM CDT) Alkaline Phosphatase, S 82 40 - 129 U/L 02/15/2025 12:49 PM CDT DTL Blood (Blood, Venous) 02/15/2025 11:51 AM CDT 02/15/2025 12:09 PM CDT us Constantin López M.D. LAB BLOOD ADD-ON Final Resu lt Performing Organization Address City/[facility]/ZIP Co de Phone Number [facility] [place] [address] [place] [address] * Glucose, Fasting (02/15/2025 11:51 AM CDT) Glucose, P 92 70 - 100 mg/dL 02/15/2025 12:54 PM CDT DTL Last Intake 4 hr 02/15/2025 12:10 PM CDT DTL Blood (Blood, Venous) 02/15/2025 11:51 AM CDT 02/15/2025 12:10 PM CDT us Constantin López M.D. LAB BLOOD NON ADD-ON Final Result Performing Organization Address City/[facility]/ZIP Co de Phone Number [facility] [place] [address] [place] [address] * Potassium (02/15/2025 11:51 AM CDT) Potassium, S 4.4 3.6 - 5.2 mmol/L 02/15/2025 12:49 PM CDT DTL Blood (Blood, Venous) 02/15/2025 11:51 AM CDT 02/15/2025 12:09 PM CDT us Constantin López M.D. LAB BLOOD ADD-ON Final Resu lt Performing Organization Address City/[facility]/ZIP Co de Phone Number [facility] [place] 200 [place] [address] * (ABNORMAL) Sodium (02/15/2025 11:51 AM CDT) Sodium, S 132(L) 135 - 145 mmol/L 02/15/2025 12:49 PM CDT DTL Blood (Blood, Venous) 02/15/2025 11:51 AM CDT 02/15/2025 12:09 PM CDT us Constantin López M.D. LAB BLOOD ADD-ON Final Resu lt [facility] [place] [address] [place] [address], [facility] DTL [facility] [address] [place] [address] * (ABNORMAL) CBC with Differential, Blood (02/15/2025 11:51 AM CDT) Hemoglobin 11.3(L) 13.2 - 16.6 g/dL 02/15/2025 [...] M.D. LAB BLOOD ADD-ON Final Resu lt [facility] [place] [address] [place] [address], [facility] DTL [facility] [address] [place] [address] DHPM [facility] [address] [place] [address] documented in this encounter Visit Diagnoses Diagnosis Multiple Myeloma Not Having Achieved Remission (HCC) Thoracic Aortic Aneurysm Without Rupture Unspecified documented in this encounter Additional Health Concerns Infection Onset Date Last Indicated Resolved Time Protective Environment 01/27/2025 01/27/2025 documented as of this encounter
--- OUTSIDE RECORDS SUMMARY | 2025-02-15 13:30 | XMS_ITS | Encounter Summary ---
Author Organization [facility] Address [address] [place] [id number] Care Team Providers Care Gold Charmer Name Role Phone Unavailable Primary Care Provider Unavailabl e Reason for Visit * Outpatient (Routine) - Closed Specialty Diagnoses / Procedures Referred By Teresa t Referred To Contact Hematology Oncology Diagnoses Multiple Myeloma Not Having Achieved Remission (HCC) Tr Hernandez M.D. [address] [place] [phone] Phone: tel: fax: [facility] Referral ID Status Reason Start Date Expiration Date Visits Re quested Visits Authorized [id number] Closed 02/14/2025 08/16/2026 1 1 Encounter Details Date Type Department Care Team (Late st Contact Info) Description 02/15/2025 1:30 PM CDT Nurse Only Division of Hematology in [place], [place] [address] [place] [phone] Tr Hernandez M.D. [address] [place] [phone] Rula Oquendo, Kj., O.C.N. Social History Tobacco Use Types Packs/Day Years [...] things needed for daily living? No 01/27/2025 [facility] Utilities Answer Date Recorded In the past 12 months has [facility] [employer], gas, oil, or water [employer] threatened to shut off services in your home? No 01/27/2025 Housing Stability Answer Date Recorded What is your living situation today? 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 - 02/15/2025 1:30 PM CDT SUBJECTIVE CHIEF COMPLAINT/REASON FOR VISIT Joey Laird is a 60 y.o. year old male, here for ongoing assessment and review for treatment of Multiple Myeloma C90.00. OBJECTIVE There were no vitals taken for this visit. Recent Results (from the past 72 hours) CBC with Differential, Blood Collection Time: 02/15/25 11:51 AM Result Value Hemoglobin 11.3 (L) Hematocrit 35.8 (L) Erythrocytes 3.80 (L) MCV 94.2 RBC Distrib Width 15.6 (H) Platelet Count 312 Leukocytes 6.0 Neutrophils 2.66 Lymphocytes 2.95 Monocytes 0.33 Eosinophils 0.03 Basophils <0.03 Sodium Collection Time: 02/15/25 11:51 AM Result Value Sodium, S 132 (L) Potassium Collection Time: 02/15/25 11:51 AM Result Value Potassium, S 4.4 Glucose, Fasting Collection Time: 02/15/25 11:51 AM Result Value Glucose, P 92 Last Intake 4 Alkaline Phosphatase Collection Time: 02/15/25 11:51 AM Result Value Alkaline Phosphatase, S 82 Bilirubin, Total Collection Time: 02/15/25 11:51 AM Result Value Bilirubin, Total, S 0.5 Bilirubin, Direct Collection Time: 02/15/25 11:51 AM Result Value Bilirubin, Direct, S <0.1 AST (Aspartate Aminotransferase) Collection Time: 02/15/25 11:51 AM Result Value Aspartate Aminotransferase (AST), S 27 ALT (Alanine Aminotransferase) Collection Time: 02/15/25 11:51 AM Result Value Alanine Aminotransferase (ALT), S 21 Creatinine with Estimated GFR Collection Time: 02/15/25 11:51 AM Result Value Creatinine 1.27 Estimated GFR (eGFR) 64 Calcium, Total Collection Time: 02/15/25 11:51 AM Result Value Calcium, Total, S 8.6 (L) Albumin Collection Time: 02/15/25 11:51 AM Result Value Albumin, S 3.3 (L) Lipid Panel Collection Time: 02/15/25 11:51 AM Result Value Triglycerides 351 (H) Cholesterol, Total 198 Cholesterol, LDL, Calculated 108 Cholesterol, HDL, S 29 (L) Cholesterol, Non-HDL, Calculated 169 (H) Fasting (8 HR or more) No ASSESSMENT / PLAN The patient was seen in collaboration with Dr. Hernandez. Please see their full evaluation for complete assessment and plan. The following were discussed with the patient and education provided: #1 Clinical Trial Treatment Patient continues to consent to receive treatment on clinical trial. Patient will proceed with treatment on clinical trial IDEAL, cycle 1 day 1. Trial therapy: Administered in 28 days cycle Iberdomide 0.75 mg days 1-21 of the cycle Bortezomib 1.3 mg/m2 weekly on days 1, 8, 15 and 22 Daratumumab weekly for cycle 1--2; every other week for cycle 3-6; once a month for cycle 7+ Dexamethasone 40 mg weekly on days 1, 8, 15, and 22 Iberdomide is a novel IMiD and is a pill that you will take daily for three weeks then have a week off (days 1-21 of your cycle). It carries the risk for blood clots (DVT and PE), rash, fatigue, muscle cramping, diarrhea, and low blood counts. We will monitor cell counts frequently to make sure they are not too low for patients to receive therapy. DVT (deep vein thrombosis) symptoms include swelling in one extremity that comes on suddenly. There may be pain or redness in that extremity. PE (pulmonary embolism) is a clot in the lungs that presents with shortness of breath, chest pain, and fever. Bortezomib (Velcade) Side Effects - diarrhea or constipation, peripheral neuropathy, thrombocytopenia, increased risk for herpes zoster reactivation, and cardiomyopathy (extremely rare). Immediately notify your healthcare team if you notice any changes in your hands or feet The patient will be taking Acyclovir every day and for at least 3 months after you finish bortezomib to prevent herpes zoster reactivation. Administration - Administered as a subcutaneous injection under the skin Drug interactions - Vitamin C and green tea may decrease the efficacy of bortezomib; do not take vitamin C, multivitamins, or consume food containing vitamin C or green tea on day of treatment Daratumumab and Hyaluronidase (Darzalex Faspro): Side Effects - Hypersensitivity reaction (preventative measures - pre- medications acetaminophen, dexamethasone, diphenhydramine; Lower risk than IV formulation), fatigue, increased risk for herpes zoster reactivation, injection site reactions and skin irritation Reviewed symptoms of an infusion reaction including shortness of breath, fever, chills, hypotension, flushing, and itching The patient will be taking Acyclovir and for at least 3 months after you finish daratumumab to prevent herpes zoster reactivation Administration - Subcutaneous injection given over 3-5 minutes into the abdomen. Dexamethasone (Decadron): Side Effects - hyperglycemia, hypertension, mood changes, insomnia, stomach upset Patients with diabetes should monitor their blood sugars more frequently the day of and day after taking steroids. Take with food to reduce risk of stomach upset #2 Patient Education No apparent learning barriers were identified. Test results and medication changes were reviewed with the patient. Plan of care as outlined by the provider was reinforced. Additional questions were answered, and patient expressed understanding of the content/plan and had no additional questions by the end of the visit. Patient was encouraged to contact us with interim concerns or additional questions/concerns. documented in this encounter Plan of Treatment Upcoming Encounters Date Type Department Care Team (Latest Contact Info) Description 03/08/2025 8:00 AM CDT Appointment Department of Laboratory Medicine and Pathology, [facility] in [place], [place] [address] [place] [phone] Constantin López M.D. [address] [place] [phone] 03/08/2025 8:45 AM CDT Infusion Department of Oncology in [place], [place] [address] [place] [phone] Constantin López M.D. [address] [place] [phone] 03/08/2025 10:30 AM CDT Comprehensive Visit Department of Vascular Medicine in [place], [place] [address] [place] [phone] Vic Flores M.D. [address] [place] [phone] 03/11/2025 12:30 PM CDT Diagnostic Division of Pulmonary Medicine in [place], [place] [address] [place] [phone] Constantin López M.D. [address] [place] [phone] 03/11/2025 2:00 PM CDT Appointment Department of Vascular Medicine in [place], [place] [address] [place] [phone] Constantin López M.D. [address] [place] [phone] Discharge Disposition: Home or Self Care 03/15/2025 9:00 AM CDT Comprehensive Visit Department of Spine in [place], [place] [address] [place] [phone] Hebert Francis APRN, C.N.P., M.S.N. [address] [place] [phone] 03/15/2025 12:30 PM CDT Appointment Department of Laboratory Medicine and Pathology, [facility] in [place], [place] [address] [place] [phone] Harshad Perez M.D. [address] [place] [phone] 03/15/2025 2:30 PM CDT Office Visit Division of Hematology in [place], [place] [address] [place] [phone] Mely Hayden APRN, C.N.P., D.N.P., M.S. [address] [place] [phone] 03/15/2025 4:00 PM CDT Infusion Department of Oncology in [place], [place] [address] [place] [phone] Harshad Perez M.D. [address] [place] [phone] 03/16/2025 1:30 PM CDT Comprehensive Visit Division of Pulmonary Medicine in [place], [place] [address] [place] [phone] Morgan Peck M.D. [address] [place] [phone] 03/22/2025 11:10 AM CDT Appointment Department of Laboratory Medicine and Pathology, [facility] in [place], [place] [address] [place] [phone] Harshad Perez M.D. [address] [place] [phone] 03/22/2025 1:00 PM CDT Infusion Department of Oncology in [place], [place] [address] [place] [phone] Harshad Perez M.D. [address] [place] [phone] 03/29/2025 9:15 AM CDT Appointment Division of Pulmonary Medicine in [place], [place] [address] [place] [phone] Harshad Perez M.D. [address] [place] [phone] Discharge Disposition: Home or Self Care 03/29/2025 10:30 AM CDT Appointment Department of Laboratory Medicine and Pathology, [facility], in [place], [place] [address] [place] [phone] Harshad Perez M.D. [address] [place] [phone] 03/29/2025 11:15 AM CDT Nurse Only Division of Hematology in [place], [place] [address] [place] [phone] Harshad Perez M.D. [address] [place] [phone] 03/29/2025 1:30 PM CDT Infusion Department of Oncology in [place], [place] [address] [place] [phone] Harshad Perez M.D. [address] [place] [phone] 04/05/2025 10:10 AM CDT Appointment Department of Laboratory Medicine and Pathology, [facility] in [place], [place] [address] [place] [phone] Harshad Perez M.D. [address] [place] [phone] 04/05/2025 12:00 PM CDT Infusion Department of Oncology in [place], [place] [address] [place] [phone] Harshad Perez M.D. [address] [place] [phone] 04/12/2025 11:40 AM CDT Appointment Department of Laboratory Medicine and Pathology, [facility] in [place], [place] [address] [place] [phone] Harshad Perez M.D. [address] [place] [phone] 04/12/2025 1:30 PM CDT Office Visit Division of Hematology in [address] [phone] Tr Hernandez M.D. [address] [place] [phone] 04/12/2025 3:30 PM CDT Infusion Department of Oncology in [place], [place] [address] [place] [phone] Harshad Perez M.D. [address] [place] [phone] 04/19/2025 10:15 AM CDT Infusion Department of Oncology in [place], [place] [address] [place] [phone] Harshad Perez M.D. [address] [place] [phone] 04/26/2025 10:10 AM CDT Appointment Department of Laboratory Medicine and Pathology, [facility] in [place], [place] [address] [place] [phone] Harshad Perez M.D. [address] [place] [phone] 04/26/2025 11:00 AM CDT Nurse Only Division of Hematology in [place], [place] [address] [place] [address] Harshad Perez M.D. [address] [place] [phone] 04/26/2025 12:00 PM CDT Infusion Department of Oncology in [place], [place] [address] [place] [address] Harshad Perez M.D. [address] [place] [phone] 04/26/2025 1:30 PM CDT Appointment Division of Pulmonary Medicine in [place], [place] [address] [place] [phone] Harshad Perez M.D. [address] [place] [phone] Discharge Disposition: Home or Self Care 05/03/2025 10:15 AM CDT Infusion Department of Oncology in [place], [place] [address] [place] [address] Harshad Perez M.D. 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 [address] [place] [phone] 05/10/2025 11:30 AM WATER TAXI FERRY OPERATOR Office Visit Division of Hematology in [place], [place] [address] [place] [phone] Mely Hayden APRN, C.N.P., D.N.P., M.S. [address] [place] [phone] 05/10/2025 1:00 PM WATER TAXI FERRY OPERATOR Infusion Department of Oncology in [place], [place] [address] [place] [phone] Constantin López M.D. [address] [place] [phone] 05/17/2025 10:15 AM WATER TAXI FERRY OPERATOR Infusion Department of Oncology in [place], [place] [address] [place] [phone] Constantin López M.D. [address] [place] [phone] 05/24/2025 10:00 AM WATER TAXI FERRY OPERATOR Appointment Department of Laboratory Medicine and Pathology, [facility], in [place], [place] [address] [place] [phone] Constantin López M.D. [address] [place] [phone] 05/24/2025 10:45 AM WATER TAXI FERRY OPERATOR Appointment Division of Pulmonary Medicine in [place], [place] [address] [place] [phone] Harshad Perez M.D. [address] [place] [phone] Discharge Disposition: Home or Self Care 05/24/2025 12:00 PM WATER TAXI FERRY OPERATOR Infusion Department of Oncology in [place], [place] [address] [place] [address] Constantin López M.D. [address] [place] [phone] 05/31/2025 10:00 AM WATER TAXI FERRY OPERATOR Infusion Department of Oncology in [place], [place] [address] [place] [phone] Constantin López M.D. [address] [place] [phone] documented as of this encounter Visit Diagnoses Not on filedocumented in this encounter Additional Health Concerns Infection Onset Date Last Indicated Resolved Time Protective Environment 01/27/2025 01/27/2025 documented as of this encounter
--- OUTSIDE RECORDS SUMMARY | 2025-02-15 14:00 | XMS_ITS | Encounter Summary ---
Author Organization [facility] Address [address] [place] [address] Care Team Providers Care Distribution Specialist Name Role Phone Unavailable Primary Care Provider Unavailabl e Reason for Referral * Outpatient (Routine) Specialty Diagnoses / Procedures Referred By Teresa carvalho Referred To Contact Hematology Oncology Diagnoses Multiple Myeloma Not Having Achieved Remission (HCC) Tr Hernandez M.D. [address] [place] [address] Phone: tel: fax: [facility] Referral ID Status Reason Start Date Expiration Date Visits Re quested Visits Authorized Scheduling Instructions Mandy Godfrey [phone] Mely 11:30am * Specialty Diagnoses / Procedures Referred By Teresa carvalho Referred To Contact Diagnoses Multiple Myeloma Not Having Achieved Remission (HCC) Tr Hernandez M.D. [address] [place] [address] Phone: tel: fax: [facility] Referral ID Status Reason Start Date Expiration Date Visits Re quested Visits Authorized * Specialty Diagnoses / Procedures Referred By Teresa carvalho Referred To Contact Diagnoses Multiple Myeloma Not Having Achieved Remission (HCC) Tr Hernandez M.D. [address] [place] [address] Phone: tel: fax: [facility] Referral ID Status Reason Start Date Expiration Date Visits Re quested Visits Authorized * Specialty Diagnoses / Procedures Referred By Teresa carvalho Referred To Contact Diagnoses Multiple Myeloma Not Having Achieved Remission (HCC) Tr Hernandez M.D. [address] [place] [address] Phone: tel: fax: [facility] Referral ID Status Reason Start Date Expiration Date Visits Re quested Visits Authorized * Specialty Diagnoses / Procedures Referred By Teresa carvalho Referred To Contact Diagnoses Multiple Myeloma Not Having Achieved Remission (HCC) Tr Hernandez M.D. [address] [place] [address] Phone: tel: fax: [facility] Referral ID Status Reason Start Date Expiration Date Visits Re quested Visits Authorized Reason for Visit * Episode Based Medications (Routine) - Authorized Specialty Diagnoses / Procedures Referred By Teresa carvalho Referred To Contact Diagnoses Multiple Myeloma Not Having Achieved Remission (HCC) Procedures GA ONDANSETRON HCL INJECTION GA DARATUMUMAB, HYALURONIDASE GA BORTEZOMIB INJECTION Constantin López M.D. [address] [place] [address] Phone: tel: fax: Constantin López M.D. [address] [place] [address] Phone: tel: fax: Referral ID Status Reason Start Date Expiration Date V isits Requested Visits Authorized [id number] Authorized 02/15/2025 05/18/2026 99 99 Encounter Details Date Type Department Care Team (Late st Contact Info) Description 02/15/2025 2:00 PM CDT Office Visit Division of Hematology in [place], [place] [address] [place] [address] Tr Hernandez M.D. [address] [place] [address] Multiple Myeloma Not Having Achieved Remission (HCC) [...] for daily living? No 01/27/2025 [facility] Utilities Answer Date Recorded In the past 12 months has [facility] electric, gas, oil, or water company threatened to shut off services in your home? No 01/27/2025 Housing Stability Answer Date Recorded What is your living situation today? I have a [facility] place to live 01/27/2025 Sex and Gender Information Value Date Recorded Sex Assigned at Male 01/27/2025 2:34 PM CDT Legal Sex Male 6:33 AM ACQUISITION SPECIALIST Gender Identity Male 01/27/2025 2:34 PM CDT Sexual Orientation Straight 01/27/2025 2: 34 PM CDT documented as of this encounter Last Filed Vital Signs Vital Sign Reading Time Taken Comments Blood Pressure 103/69 02/15/2025 12:57 PM CDT Pulse 89 02/15/2025 12:57 PM CDT Temperature - - Respiratory Rate - - Oxygen Saturation - - Inhaled Oxygen Concentration - - Weight 75.6 kg (166 lb 10.7 oz) 025 12:57 PM CDT Height 173.2 cm (5' 8.19) 02/15/2025 1 2:57 PM CDT Body Mass Index 25.2 02/15/2025 12:57 PM CDT documented in this encounter Progress Notes * Tr Hernandez M.D. - 02/15/2025 2:00 PM CDT [facility]: Presenting symptoms: Symptoms started near July 2024 of epistaxis, weight loss, foamy urine, hip/leg pain, LE swelling with redness and hypersensitivity. Labs: Date: January 2025 Hgb: 11.8 g/dL Plts: 364K Creatinine: 1.46 mg/dL Calcium: 8.8 mg/dL Total Protein: 9.4 Albumin: 3.3 g/dL CRP 53.5 LDH: 179 B2M: 8.55 SPEP: M-spike: 1.95 g/dL Immunofixation: IgG Odem Immunoglobulins: Ig.86 mg/dL; IgA: 33.8 mg/dL; IgM: 10.21 mg/dL Free light chains (mg/dL): kappa: ; lambda: ; Odem:Lambda Ratio: UPEP: Urine Random: total protein: 12 mg/dL; urine M-spike: 1.11 mg, Immunofixation: Monoclonal protein detected in beta-gamma region, confirmed by immunofixation. IgG kappa with probable free kappa light chains. Pathology: Bone Marrow: 90% FISH: Myc separation Imagin01/20/2025 PET/CT, Impression: 1. Diffuse intense FDG [...] response to systemic inflammatory process INTERVAL HISTORY He started on DVd therapy with plans to add Revlimid for the first cycle. He then signed consent and proceeded to get treated on the IDEAL study. He is here to start Cycle 1, day 1. OBJECTIVE Gen: AOX3, NAD ENT: Moist mucous membranes RESP: CTAB CVS: Regular rhythm EXT: Trace edema, left foot concerning for ongoing pain IMPRESSION/PLAN # IgG Odem Multiple myeloma, Standard risk, Myc He got two weeks of DVd therapy. He will start the IDEAL study with daratumumab, bortezomib, iberdomie and dex. His blood counts are satisfactory. Per Dr. López's plan: To account for the fact that he has received 2 doses of Nettie bortezomib and dexamethasone; these two prior weeks of treatment would be integrated with cycle 1 of Nettie-Iberdomide, Vd. To that end, he will receive 7 additional doses of daratumumab to complete 9 up front weekly doses of daratumumab, followed by every other week with a skip in the Day 15 dose of Cycle 6 to synchronize the individual components of the regimen for each cycle. # Supportive care -Full dose aspirin or blood thinner due to Revlimid -On acyclovir to prevent shingles due to Darzalex and Velcade -He is on levofloxacin. After that month, he can switch to Bactrim. -Zometa monthly until July 2025 and then q 3 months. - Prilosec for acid supression # Foot pain EMG shows no signs of neuropathy. He is planned to get an MRI in case this is some spinal radiculopathy. Arterial Dopplers are also scheduled to ensure this is not a vascular issue. On gabapentin and has capsaicin cream. documented in this encounter Miscellaneous Notes * Addendum Note - Mandy Godfrey - 02/15/2025 2:00 PM CDTAddended by: MANDY GODFREY on: 02/22/2025 08:40 AM Modules accepted: Orders * Addendum Note - Mandy Godfrey - 02/15/2025 2:00 PM CDTAddended by: MANDY GODFREY on: 02/22/2025 01:26 PM Modules accepted: Orders documented in this encounter Plan of Treatment Upcoming Encounters Date Type Department Care Team (Latest Contact Info) Description 03/08/2025 8:00 AM CDT Appointment Department of Laboratory Medicine and Pathology, [facility], in [place], [place] [address] [place] [phone] Constantin López M.D. [address] [place] [phone] 03/08/2025 8:45 AM CDT Infusion Department of Oncology in [place], [place] [address] [place] [phone] Constantin López M.D. [address] [place] [phone] 03/08/2025 10:30 AM CDT Comprehensive Visit Department of Vascular Medicine in [place], [place] [address] [place] [phone] Vic Flores M.D. [address] [place] [phone] 03/11/2025 12:30 PM CDT Diagnostic Division of Pulmonary Medicine in [place], [place] [address] [place] [phone] Constantin López M.D. [address] [place] [phone] 03/11/2025 2:00 PM CDT Appointment Department of Vascular Medicine in [place], [place] [address] [place] [phone] Constantin López M.D. [address] [place] [phone] Discharge Disposition: Home or Self Care 03/15/2025 9:00 AM CDT Comprehensive Visit Department of Spine in [place], [place] [address] [place] [phone] Hebert Francis APRN, C.N.P., M.S.N. [address] [place] [phone] 03/15/2025 12:30 PM CDT Appointment Department of Laboratory Medicine and Pathology, [facility] in [place], [place] [address] [place] [phone] Harshad Perez M.D. [address] [place] [phone] 03/15/2025 2:30 PM CDT Office Visit Division of Hematology in [place], [place] [address] [place] [phone] Mely Hayden, ANY, C.N.P., D.N.P., M.S. [address] [place] [phone] 03/15/2025 4:00 PM CDT Infusion Department of Oncology in [place], [place] [address] [place] [phone] Harshad Perez M.D. [address] [place] [phone] 03/16/2025 1:30 PM CDT Comprehensive Visit Division of Pulmonary Medicine in [place], [place] [address] [place] [phone] Morgan Peck M.D. [address] [place] [phone] 03/22/2025 11:10 AM CDT Appointment Department of Laboratory Medicine and Pathology, [facility], in [place], [place] [address] [place] [phone] Harshad Perez M.D. [address] [place] [phone] 03/22/2025 1:00 PM CDT Infusion Department of Oncology in [place], [place] [address] [place] [phone] Harshad Perez M.D. [address] [place] [phone] 03/29/2025 9:15 AM CDT Appointment Division of Pulmonary Medicine in [place], [place] [address] [place] [phone] Harshad Perez M.D. [address] [place] [phone] Discharge Disposition: Home or Self Care 03/29/2025 10:30 AM CDT Appointment Department of Laboratory Medicine and Pathology, [facility], in [place], [place] [address] [place] [address] Harshad Perez M.D. [address] [place] [phone] 03/29/2025 11:15 AM CDT Nurse Only Division of Hematology in [place], [place] [address] [place] [phone] Harshad Perez M.D. [address] [place] [phone] 03/29/2025 1:30 PM CDT Infusion Department of Oncology in [place], [place] [address] [place] [phone] Harshad Perez M.D. [address] [place] [phone] 04/05/2025 10:10 AM CDT Appointment Department of Laboratory Medicine and Pathology, [facility] in [place], [place] [address] [place] [address] Harshad Perez M.D. [address] [place] [phone] 04/05/2025 12:00 PM CDT Infusion Department of Oncology in [place], [place] [address] [place] [address] Harshad Perez M.D. [address] [place] [phone] 04/12/2025 11:40 AM CDT Appointment Department of Laboratory Medicine and Pathology, [facility] in [place], [place] [address] [place] [address] Harshad Perez M.D. [address] [place] [phone] 04/12/2025 1:30 PM CDT Office Visit Division of Hematology in [place], [place] [address] [place] [phone] Tr Hernandez M.D. [address] [place] [phone] 04/12/2025 3:30 PM CDT Infusion Department of Oncology in [place], [place] [address] [place] [address] Harshad Perez M.D. [address] [place] [phone] 04/19/2025 10:15 AM CDT Infusion Department of Oncology in [place], [place] [address] [place] [phone] Harshad Perez M.D. [address] [place] [phone] 04/26/2025 10:10 AM CDT Appointment Department of Laboratory Medicine and Pathology, [facility] in [place], [place] [address] [place] [address] Harshad Perez M.D. [address] [place] [phone] 04/26/2025 11:00 AM CDT Nurse Only Division of Hematology in [place], [place] [address] [place] [phone] Harshad Perez M.D. [address] [place] [phone] 04/26/2025 12:00 PM CDT Infusion Department of Oncology in [place], [place] [address] [place] [phone] Harshad Perez M.D. [address] [place] [phone] 04/26/2025 1:30 PM CDT Appointment Division of Pulmonary Medicine in [place], [place] [address] [place] [phone] Harshad Perez M.D. [address] [place] [phone] Discharge Disposition: Home or Self Care 05/03/2025 10:15 AM CDT Infusion Department of Oncology in [place], [place] [address] [place] [address] Harshad Perez M.D. [address] [place] [phone] 05/10/2025 9:40 AM ACQUISITION SPECIALIST Appointment Department of Laboratory Medicine and Pathology, [facility], in [place], [place] [address] [place] [phone] Constantin López M.D. [address] [place] [phone] 05/10/2025 11:30 AM ACQUISITION SPECIALIST Office Visit Division of Hematology in [place], [place] [address] [place] [phone] Mely Hayden APRN, C.N.P., D.N.P., M.S. [address] [place] [phone] 05/10/2025 1:00 PM ACQUISITION SPECIALIST Infusion Department of Oncology in [address] [phone] Constantin López M.D. [address] [place] [phone] 05/17/2025 10:15 AM ACQUISITION SPECIALIST Infusion Department of Oncology in [address] [phone] Constantin López M.D. [address] [place] [phone] 05/24/2025 10:00 AM ACQUISITION SPECIALIST Appointment Department of Laboratory Medicine and Pathology, [facility], in [place], [place] [address] [place] [phone] Constantin López M.D. [address] [place] [phone] 05/24/2025 10:45 AM ACQUISITION SPECIALIST Appointment Division of Pulmonary Medicine in [address] [phone] Harshad Perez M.D. [address] [place] [address] Discharge Disposition: Home or Self Care 05/24/2025 12:00 PM ACQUISITION SPECIALIST Infusion Department of Oncology in [place], [place] [address] [place] [address] Constantin López M.D. [address] [place] [phone] 05/31/2025 10:00 AM ACQUISITION SPECIALIST Infusion Department of Oncology in [place], [place] [address] [place] [address] Constantin López M.D. [address] [place] [phone] Scheduled Orders Name Type Priority Associated Diagnoses Orde r Schedule CBC with Differential, Blood Lab Routine Multiple Myeloma Not Having Achieved Remission (HCC) Expected: 05/10/2025, Expires: 05/10/2026 Sodium Lab Routine Multiple Myeloma Not Having Achieved Remission (HCC) Expected: 05/10/2025, Expires: 05/10/2026 Potassium Lab Routine Multiple Myeloma Not Having Achieved Remission (HCC) Expected: 05/10/2025, Expires: 05/10/2026 Glucose, Fasting Lab Routine Multiple Myeloma Not Having Achieved Remission (HCC) Expected: 05/10/2025, Expires: 05/10/2026 Alkaline Phosphatase Lab Routine Multiple Myeloma Not Having Achieved Remission (HCC) Expected: 05/10/2025, Expires: 05/10/2026 Bilirubin, Total Lab Routine Multiple Myeloma Not Having Achieved Remission (HCC) Expected: 05/10/2025, Expires: 05/10/2026 Bilirubin, Direct Lab Routine Multiple Myeloma Not Having Achieved Remission (HCC) Expected: 05/10/2025, Expires: 05/10/2026 AST (Aspartate Aminotransferase) Lab Routine Multiple Myeloma Not Having Achieved Remission (HCC) Expected: 05/10/2025, Expires: 05/10/2026 ALT (Alanine Aminotransferase) Lab Routine Multiple Myeloma Not Having Achieved Remission (HCC) Expected: 05/10/2025, Expires: 05/10/2026 Creatinine with Estimated GFR Lab Routine Multiple Myeloma Not Having Achieved Remission (HCC) Expected: 05/10/2025, Expires: 05/10/2026 Calcium, Total Lab Routine Multiple Myeloma Not Having Achieved Remission (HCC) Expected: 05/10/2025, Expires: 05/10/2026 Albumin Lab Routine Multiple Myeloma Not Having Achieved Remission (HCC) Expected: 05/10/2025, Expires: 05/10/2026 Quantitative M-protein Study Lab Routine Multiple Myeloma Not Having Achieved Remission (HCC) Expected: 05/10/2025, Expires: 08/10/2026 Immunoglobulin Free Light Chains Lab Routine Multiple Myeloma Not Having Achieved Remission (HCC) Expected: 05/10/2025, Expires: 05/10/2026 CBC with Differential, Blood Lab Routine Multiple Myeloma Not Having Achieved Remission (HCC) Expected: 05/24/2025, Expires: 05/24/2026 Scheduled Referrals Name Type Priority Associated Diagnoses Order Schedule Pharmacy - RX prep pick-up education visit (clinic) Outpatient Referral Routine Multiple Myeloma Not Having Achieved Remission (HCC) Expected: 02/15/2025, Expires: 05/18/2026 Pharmacy - RX prep pick-up education visit (clinic) Outpatient Referral Routine Multiple Myeloma Not Having Achieved Remission (HCC) Expected: 03/15/2025, Expires: 06/15/2026 Pharmacy - RX prep pick-up education visit (clinic) Outpatient Referral Routine Multiple Myeloma Not Having Achieved Remission (HCC) Expected: 04/12/2025, Expires: 07/13/2026 Pharmacy - RX prep pick-up education visit (clinic) Outpatient Referral Routine Multiple Myeloma Not Having Achieved Remission (HCC) Expected: 05/10/2025, Expires: 08/10/2026 Hematology office visit (clinic) [facility]; Myeloma; General Outpatient Referral Routine Multiple Myeloma Not Having Achieved Remission (HCC) Expected: 05/10/2025, Expires: 08/10/2026 documented as of this encounter Visit Diagnoses Diagnosis Multiple Myeloma Not Having Achieved Remission (HCC)- Primary documented in this encounter Additional Health Concerns Infection Onset Date Last Indicated Resolved Time Protective Environment 01/27/2025 01/27/2025 documented as of this encounter
--- OUTSIDE RECORDS SUMMARY | 2025-02-15 16:00 | XMS_ITS | Encounter Summary ---
Author Organization [facility] Address [address] [place] [address] Care Team Providers Care Aeronautical Project Engineer Name Role Phone Unavailable Primary Care Provider Unavailabl e Reason for Visit * Episode Based Medications (Routine) - Authorized Specialty Diagnoses / Procedures Referred By Teresa carvalho Referred To Contact Diagnoses Multiple Myeloma Not Having Achieved Remission (HCC) Procedures FL ONDANSETRON HCL INJECTION FL DARATUMUMAB, HYALURONIDASE [place] BORTEZOMIB INJECTION Consatntin López M.D. [address] [place] [phone] Phone: tel: fax: Constantin López M.D. [address] [place] [phone] Phone: tel: fax: Referral ID Status Reason Start Date Expiration Date V isits Requested Visits Authorized [id number] Authorized 02/15/2025 05/18/2026 99 99 Encounter Details Date Type Department Care Team (Late st Contact Info) Description 02/15/2025 4:00 PM CDT Infusion Department of Oncology in [place], [place] [address] [place] [phone] Constantin López M.D. [address] [place] [phone] Multiple Myeloma Not Having Achieved Remission (HCC) [...] Recorded In the past 12 months has [employer] electric, gas, oil, or water company threatened to shut off services in your home? No 01/27/2025 Housing Stability Answer Date Recorded What is your living situation today? I have a 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 200 [place] [address] 03/08/2025 8:45 AM CDT Infusion Department of Oncology in [place], [place] [address] [place] [phone] Constantin López M.D. [address] [place] [phone] 03/08/2025 10:30 AM CDT Comprehensive Visit Department of Vascular Medicine in [place], [place] [address] [place] [phone] Vic Flores M.D. [address] [place] [phone] 03/11/2025 12:30 PM CDT Diagnostic Division of Pulmonary Medicine in [place], [place] [address] [place] [phone] Constantin López M.D. [address] [place] [phone] 03/11/2025 2:00 PM CDT Appointment Department of Vascular Medicine in [place], [place] [address] [place] [phone] Constantin López M.D. [address] [place] [phone] Discharge Disposition: Home or Self Care 03/15/2025 9:00 AM CDT Comprehensive Visit Department of Spine in [place], [place] [address] [place] [phone] Hebert Francis APRN, C.N.P., M.S.N. [address] [place] [phone] 03/15/2025 12:30 PM CDT Appointment Department of Laboratory Medicine and Pathology, [facility], in [place], [place] [address] [place] [phone] Harshad Perez M.D. [address] [place] [phone] 03/15/2025 2:30 PM CDT Office Visit Division of Hematology in [place], [place] [address] [place] [phone] Mely Hayden APRN, C.N.P., D.N.P., M.S. [address] [place] [phone] 03/15/2025 4:00 PM CDT Infusion Department of Oncology in [place], [place] [address] [place] [phone] Harshad Perez M.D. [address] [place] [phone] 03/16/2025 1:30 PM CDT Comprehensive Visit Division of Pulmonary Medicine in [place], [place] [address] [place] [phone] Morgan Peck M.D. [address] [place] [phone] 03/22/2025 11:10 AM CDT Appointment Department of Laboratory Medicine and Pathology, [facility], in [place], [place] [address] [place] [phone] Harshad Perez M.D. [address] [place] [phone] 03/22/2025 1:00 PM CDT Infusion Department of Oncology in [place], [place] [address] [place] [phone] Harshad Perez M.D. [address] [place] [phone] 03/29/2025 9:15 AM CDT Appointment Division of Pulmonary Medicine in [address] [place] [address] Harshad Perez M.D. [address] [place] [phone] Discharge Disposition: Home or Self Care 03/29/2025 10:30 AM CDT Appointment Department of Laboratory Medicine and Pathology, [facility] in [place], [place] [address] [place] [address] Harshad Perez M.D. [address] [place] [phone] 03/29/2025 11:15 AM CDT Nurse Only Division of Hematology in [place], [place] [address] [place] [phone] Harshad Perez M.D. [address] [place] [phone] 03/29/2025 1:30 PM CDT Infusion Department of Oncology in [place], [place] [address] [place] [phone] Harshad Perez M.D. [address] [place] [phone] 04/05/2025 10:10 AM CDT Appointment Department of Laboratory Medicine and Pathology, [facility], in [place], [place] [address] [place] [address] Harshad Perez M.D. [address] [place] [phone] 04/05/2025 12:00 PM CDT Infusion Department of Oncology in [place], [place] [address] [place] [address] Harshad Perez M.D. [address] [place] [phone] 04/12/2025 11:40 AM CDT Appointment Department of Laboratory Medicine and Pathology, [facility], in [place], [place] [address] [place] [address] Harshad Perez M.D. [address] [place] [phone] 04/12/2025 1:30 PM CDT Office Visit Division of Hematology in [place], [place] [address] [place] [phone] Tr Hernandez M.D. [address] [place] [phone] 04/12/2025 3:30 PM CDT Infusion Department of Oncology in [place], [place] [address] [place] [address] Harshad Perez M.D. [address] [place] [phone] 04/19/2025 10:15 AM CDT Infusion Department of Oncology in [place], [place] [address] [place] [address] Harshad Perez M.D. [address] [place] [phone] 04/26/2025 10:10 AM CDT Appointment Department of Laboratory Medicine and Pathology, [facility], in [place], [place] [address] [place] [address] Harshad Perez M.D. [address] [place] [phone] 04/26/2025 11:00 AM CDT Nurse Only Division of Hematology in [place], [place] [address] [place] [address] Harshad Perez M.D. [address] [place] [phone] 04/26/2025 12:00 PM CDT Infusion Department of Oncology in [place], [place] [address] [place] [phone] Harshad Perez M.D. [address] [place] [phone] 04/26/2025 1:30 PM CDT Appointment Division of Pulmonary Medicine in [place], [place] [address] [place] [phone] Harshad Perez M.D. [address] [place] [phone] Discharge Disposition: Home or Self Care 05/03/2025 10:15 AM CDT Infusion Department of Oncology in [address] [address] Harshad Perez M.D. [address] [place] [phone] 05/10/2025 9:40 AM HEALTHCARE ADMINISTRATOR Appointment Department of Laboratory Medicine and Pathology, [facility], in [place], [place] [address] [place] [phone] Constantin López M.D. [address] [place] [phone] 05/10/2025 11:30 AM HEALTHCARE ADMINISTRATOR Office Visit Division of Hematology in [address] [phone] Mely Hayden, ANY, C.N.P., D.N.P., M.S. [address] [place] [phone] 05/10/2025 1:00 PM HEALTHCARE ADMINISTRATOR Infusion Department of Oncology in [place], [place] [address] [place] [phone] Constantin López M.D. [address] [place] [phone] 05/17/2025 10:15 AM HEALTHCARE ADMINISTRATOR Infusion Department of Oncology in [place], [place] [address] [place] [phone] Constantin López M.D. [address] [place] [phone] 05/24/2025 10:00 AM HEALTHCARE ADMINISTRATOR Appointment Department of Laboratory Medicine and Pathology, [facility] in [place], [place] [address] [place] [phone] Constantin López M.D. [address] [place] [phone] 05/24/2025 10:45 AM HEALTHCARE ADMINISTRATOR Appointment Division of Pulmonary Medicine in [address] [phone] Harshad Perez M.D. [address] [place] [phone] Discharge Disposition: Home or Self Care 05/24/2025 12:00 PM HEALTHCARE ADMINISTRATOR Infusion Department of Oncology in [place], [place] [address] [place] [phone] Constantin López M.D. [address] [place] [phone] 05/31/2025 10:00 AM HEALTHCARE ADMINISTRATOR Infusion Department of Oncology in [place], [place] [address] [place] [phone] Constantin López M.D. [address] [place] [phone] documented as of this encounter Visit Diagnoses Diagnosis Multiple Myeloma Not Having Achieved Remission (HCC)- Primary documented in this encounter Administered Medications Inactive Administered Medications - up to 3 most recent administrations Medication Order MAR Action Action Date Dose Rate Site acetaminophen tablet 650 mg (TylenoL) 650 mg, oral, Once, On Fri02/15/25 at 1545, For 1 dose, Administer 30 minutes prior to monoclonal antibody.Indications:Mult iple Myeloma Not Having Achieved Remission (HCC) Given 02/15/2025 3:38 PM CDT 650 mg bortezomib injection 2.5 mg (Velcade) 2.5 mg (rounded from 2.457 mg = 1.3 mg/m2 1.89 m2 Treatment Plan BSA from Measured weight), subcutaneous, Once, On Fri02/15/25 at 1615, For 1 dose, Rotate injection site.Indications:Multiple Myeloma Not Having Achieved Remission (HCC) Given 02/15/2025 4:04 PM CDT 2.5 mg Right Lower Abdomen daratumumab-hyaluronidase -fihj injection 1,800 mg (Darzalex Faspro) 1,800 mg, subcutaneous, Administer over 5 Minutes, Once, On Fri02/15/25 at 1615, For 1 dose, Administer by SC injection by manual push over approximately 3 - 5 minutes in the abdominal subcutaneous tissues in the left/right locations, alternating between individual doses.Indications:Multipl e Myeloma Not Having Achieved Remission (HCC) Given 02/15/2025 4:09 PM CDT 1,800 mg Left Lower Abdomen dexAMETHasone tablet 40 mg (Decadron) 40 mg, oral, Once as needed, for missed oral dose, Starting on Fri02/15/25 at 1534, For 1 dose, Use only if patient did not take dexAMETHasone orally, as prescribed. Give prior to daratumumab.Indications:M ultiple Myeloma Not Having Achieved Remission (HCC) Given 02/15/2025 3:39 PM CDT 40 mg diphenhydrAMINE capsule 50 mg (BenadryL) 50 mg, oral, Once, On Fri02/15/25 at 1545, For 1 dose, Administer 30 minutes prior to monoclonal antibodyIndications:Multi ple Myeloma Not Having Achieved Remission (HCC) Given 02/15/2025 3:38 PM CDT 50 mg montelukast tablet 10 mg (Singulair) 10 mg, oral, Once, On Fri02/15/25 at 1545, For 1 dose, Administer 30 minutes prior to monoclonal antibody.Indications:Mult iple Myeloma Not Having Achieved Remission (HCC) Given 02/15/2025 3:38 PM CDT 10 mg ondansetron tablet 8 mg (Zofran) 8 mg, oral, Once, On Fri02/15/25 at 1545, For 1 doseIndications:Multiple Myeloma Not Having Achieved Remission (HCC) Given 02/15/2025 3:38 PM CDT 8 mg documented in this encounter Additional Health Concerns Infection Onset Date Last Indicated Resolved Time Protective Environment 01/27/2025 01/27/2025 documented as of this encounter
--- OUTSIDE RECORDS SUMMARY | 2025-02-15 16:30 | XMS_ITS | Encounter Summary ---
Author Organization [facility] Address [address] [place] [address] Care Team Providers Care Senior Power Plant Operator Name Role Phone Unavailable Primary Care Provider Unavailabl e Reason for Visit * Episode Based Medications (Routine) - Authorized Specialty Diagnoses / Procedures Referred By Teresa t Referred To Contact Diagnoses Multiple Myeloma Not Having Achieved Remission (HCC) Procedures LA ONDANSETRON HCL INJECTION LA DARATUMUMAB, HYALURONIDASE LA BORTEZOMIB INJECTION Constantin López M.D. [address] [place] [phone] Phone: tel: fax: Constantin López M.D. [address] [place] [phone] Phone: tel: fax: Referral ID Status Reason Start Date Expiration Date V isits Requested Visits Authorized [id number] Authorized 02/15/2025 05/18/2026 99 99 Encounter Details Date Type Department Care Team (Late st Contact Info) Description 02/15/2025 4:30 PM CDT Admin Visit Department of Oncology in [place], [place] [address] [place] [phone] Tr Hernandez M.D. [address] [place] [phone] Social History Tobacco Use Types Packs/Day Years [...] things needed for daily living? No 01/27/2025 [facility] Utilities Answer Date Recorded In the past 12 months has th [employer] electric, gas, oil, or water company threatened to shut off services in your home? No 01/27/2025 Housing Stability Answer Date Recorded What is your living situation today? 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 in [place], [place] 200 [place] [address] Constantin López M.D. 200 [place] [address] 03/08/2025 8:45 AM CDT Infusion Department of Oncology in [place], [place] [address] [place] [phone] Constantin López M.D. [address] [place] [phone] 03/08/2025 10:30 AM CDT Comprehensive Visit Department of Vascular Medicine in [place], [place] [address] [place] [phone] Vic Flores M.D. [address] [place] [phone] 03/11/2025 12:30 PM CDT Diagnostic Division of Pulmonary Medicine in [place], [place] [address] [place] [phone] Constantin López M.D. [address] [place] [phone] 03/11/2025 2:00 PM CDT Appointment Department of Vascular Medicine in [place], [place] [address] [place] [phone] Constantin López M.D. [address] [place] [phone] Discharge Disposition: Home or Self Care 03/15/2025 9:00 AM CDT Comprehensive Visit Department of Spine in [place], [place] [address] [place] [phone] Hebert Francis APRN, C.N.P., M.S.N. [address] [place] [phone] 03/15/2025 12:30 PM CDT Appointment Department of Laboratory Medicine and Pathology, [facility], in [place], [place] [address] [place] [phone] Harshad Perez M.D. [address] [place] [phone] 03/15/2025 2:30 PM CDT Office Visit Division of Hematology in [place], [place] [address] [place] [phone] Mely Hayden APRN, C.N.P., D.N.P., M.S. [address] [place] [phone] 03/15/2025 4:00 PM CDT Infusion Department of Oncology in [place], [place] [address] [place] [phone] Harshad Perez M.D. [address] [place] [phone] 03/16/2025 1:30 PM CDT Comprehensive Visit Division of Pulmonary Medicine in [place], [place] [address] [place] [phone] Morgan Peck M.D. [address] [place] [phone] 03/22/2025 11:10 AM CDT Appointment Department of Laboratory Medicine and Pathology, [facility], in [place], [place] [address] [place] [phone] Harshad Perez M.D. [address] [place] [phone] 03/22/2025 1:00 PM CDT Infusion Department of Oncology in [place], [place] [address] [place] [phone] Harshad Perez M.D. [address] [place] [phone] 03/29/2025 9:15 AM CDT Appointment Division of Pulmonary Medicine in [place], [place] [address] [place] [phone] Harshad Perez M.D. [address] [place] [phone] Discharge Disposition: Home or Self Care 03/29/2025 10:30 AM CDT Appointment Department of Laboratory Medicine and Pathology, [facility] in [place], [place] [address] [place] [address] Harshad Perez M.D. [address] [place] [phone] 03/29/2025 11:15 AM CDT Nurse Only Division of Hematology in [place], [place] [address] [place] [phone] Harshad Perez M.D. [address] [place] [phone] 03/29/2025 1:30 PM CDT Infusion Department of Oncology in [place], [place] [address] [place] [address] Harshad Perez M.D. [address] [place] [phone] 04/05/2025 10:10 AM CDT Appointment Department of Laboratory Medicine and Pathology, [facility], in [place], [place] [address] [place] [phone] Harshad Perez M.D. [address] [place] [phone] 04/05/2025 12:00 PM CDT Infusion Department of Oncology in [place], [place] [address] [place] [address] Harshad Perez M.D. [address] [place] [phone] 04/12/2025 11:40 AM CDT Appointment Department of Laboratory Medicine and Pathology, [facility], in [place], [place] [address] [place] [phone] Harshad Perez M.D. [address] [place] [phone] 04/12/2025 1:30 PM CDT Office Visit Division of Hematology in [place], [place] [address] [place] [phone] Tr Hernandez M.D. [address] [place] [phone] 04/12/2025 3:30 PM CDT Infusion Department of Oncology in [place], [place] [address] [place] [phone] Harshad Perez M.D. [address] [place] [phone] 04/19/2025 10:15 AM CDT Infusion Department of Oncology in [place], [place] [address] [place] [phone] Harshad Perez M.D. [address] [place] [address] 04/26/2025 10:10 AM CDT Appointment Department of Laboratory Medicine and Pathology, [facility], in [place], [place] [address] [place] [phone] Harshad Perez M.D. [address] [place] [phone] 04/26/2025 11:00 AM CDT Nurse Only Division of Hematology in [place], [place] [address] [place] [phone] Harshad Perez M.D. [address] [place] [phone] 04/26/2025 12:00 PM CDT Infusion Department of Oncology in [place], [place] [address] [place] [address] Harshad Perez M.D. [address] [place] [phone] 04/26/2025 1:30 PM CDT Appointment Division of Pulmonary Medicine in [place], [place] [address] [place] [address] Harshad Perez M.D. [address] [place] [phone] Discharge Disposition: Home or Self Care 05/03/2025 10:15 AM CDT Infusion Department of Oncology in [place], [place] [address] [place] [address] Harshad Perez M.D. [address] [place] [phone] 05/10/2025 9:40 AM AGRICULTURAL EDUCATION TEACHER Appointment Department of Laboratory Medicine and Pathology, [facility] in [place], [place] [address] [place] [address] Constantin López M.D. [address] [place] [phone] 05/10/2025 11:30 AM AGRICULTURAL EDUCATION TEACHER Office Visit Division of Hematology in [place], [place] [address] [place] [phone] Mely Hayden APRN, C.N.P., D.N.P., M.S. [address] [place] [phone] 05/10/2025 1:00 PM AGRICULTURAL EDUCATION TEACHER Infusion Department of Oncology in [place], [place] [address] [place] [phone] Constantin López M.D. [address] [place] [phone] 05/17/2025 10:15 AM AGRICULTURAL EDUCATION TEACHER Infusion Department of Oncology in [place], [place] [address] [place] [phone] Constantin López M.D. [address] [place] [phone] 05/24/2025 10:00 AM AGRICULTURAL EDUCATION TEACHER Appointment Department of Laboratory Medicine and Pathology, [facility] in [place], [place] [address] [place] [phone] Constantin López M.D. [address] [place] [phone] 05/24/2025 10:45 AM AGRICULTURAL EDUCATION TEACHER Appointment Division of Pulmonary Medicine in [address] [phone] Harshad Perez M.D. [address] [place] [phone] Discharge Disposition: Home or Self Care 05/24/2025 12:00 PM AGRICULTURAL EDUCATION TEACHER Infusion Department of Oncology in [address] [phone] Constantin López M.D. [address] [place] [phone] 05/31/2025 10:00 AM AGRICULTURAL EDUCATION TEACHER Infusion Department of Oncology in [place], [place] [address] [place] [phone] Constantin López M.D. [address] [place] [phone] documented as of this encounter Visit Diagnoses Not on filedocumented in this encounter Additional Health Concerns Infection Onset Date Last Indicated Resolved Time Protective Environment 01/27/2025 01/27/2025 documented as of this encounter
--- OUTSIDE RECORDS SUMMARY | 2025-02-22 09:00 | XMS_ITS | Encounter Summary ---
Author Organization [facility] Address [address] [place] [address] Care Team Providers Care Register Repairer Name Role Phone Unavailable Primary Care Provider Unavailabl e Reason for Visit * Episode Based Medications (Routine) - Authorized Specialty Diagnoses / Procedures Referred By Teresa carvalho Referred To Contact Diagnoses Multiple Myeloma Not Having Achieved Remission (HCC) Procedures OR ONDANSETRON HCL INJECTION OR DARATUMUMAB, HYALURONIDASE OR BORTEZOMIB INJECTION Constantin López M.D. [address] [place] [phone] Phone: tel: fax: Constantin López M.D. [address] [place] [phone] Phone: tel: fax: Referral ID Status Reason Start Date Expiration Date V isits Requested Visits Authorized [id number] Authorized 02/15/2025 05/18/2026 99 99 Encounter Details Date Type Department Care Team (Late st Contact Info) Description 02/22/2025 9:00 AM CDT Infusion Department of Oncology in [place], [place] [address] [place] [phone] Constantin López M.D. [address] [place] [phone] Multiple Myeloma Not Having Achieved Remission (HCC) [...] Recorded In the past 12 months has [employer] electric, gas, oil, or water company threatened to shut off services in your home? No 01/27/2025 Housing Stability Answer Date Recorded What is your living situation today? 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 Gender Identity Male 01/27/2025 2:34 PM CDT Sexual Orientation Straight 01/27/2025 2: 34 PM CDT documented as of this encounter Last Filed Vital Signs Vital Sign Reading Time Taken Comments Blood Pressure 105/60 02/22/2025 9:00 AM CDT Pulse 88 02/22/2025 9:00 AM CDT Temperature 36.7 C (98.1 F) 02/22/2025 9:00 AM CDT Respiratory Rate - - Oxygen Saturation - - Inhaled Oxygen Concentration - - Weight 73.9 kg (162 lb 14.7 oz) 02/22/2025 9:00 AM CDT Height - - Body Mass Index 24.63 02/15/2025 12:57 PM CDT documented in this encounter Plan of Treatment Upcoming Encounters Date Type Department Care Team (Latest Contact Info) Description 03/08/2025 8:00 AM CDT Appointment Department of Laboratory Medicine and Pathology, [facility], in [place], [place] [address] [place] [phone] Constantin López M.D. [address] [place] [phone] 03/08/2025 8:45 AM CDT Infusion Department of Oncology in [place], [place] [address] [place] [phone] Constantin López M.D. [address] [place] [phone] 03/08/2025 10:30 AM CDT Comprehensive Visit Department of Vascular Medicine in [place], [place] [address] [place] [phone] Vic Flores M.D. [address] [place] [phone] 03/11/2025 12:30 PM CDT Diagnostic Division of Pulmonary Medicine in [place], [place] [address] [place] [phone] Constantin López M.D. [address] [place] [phone] 03/11/2025 2:00 PM CDT Appointment Department of Vascular Medicine in [place], [place] [address] [place] [phone] Constantin López M.D. [address] [place] [phone] Discharge Disposition: Home or Self Care 03/15/2025 9:00 AM CDT Comprehensive Visit Department of Spine in [place], [place] [address] [place] [phone] Hebert Francis APRN, C.N.P., M.S.N. [address] [place] [phone] 03/15/2025 12:30 PM CDT Appointment Department of Laboratory Medicine and Pathology, [facility] in [place], [place] [address] [place] [phone] Harshad Perez M.D. [address] [place] [phone] 03/15/2025 2:30 PM CDT Office Visit Division of Hematology in [place], [place] [address] [place] [phone] Mely Hayden APRN, Mavis.N.P., D.N.P., M.S. [address] [place] [phone] 03/15/2025 4:00 PM CDT Infusion Department of Oncology in [place], [place] [address] [place] [phone] Harshad Perez M.D. [address] [place] [phone] 03/16/2025 1:30 PM CDT Comprehensive Visit Division of Pulmonary Medicine in [place], [place] [address] [place] [phone] Morgan Peck M.D. [address] [place] [phone] 03/22/2025 11:10 AM CDT Appointment Department of Laboratory Medicine and Pathology, [facility], in [place], [place] [address] [place] [phone] Harshad Perez M.D. [address] [place] [phone] 03/22/2025 1:00 PM CDT Infusion Department of Oncology in [place], [place] [address] [place] [address] Harshad Perez M.D. [address] [place] [phone] 03/29/2025 9:15 AM CDT Appointment Division of Pulmonary Medicine in [place], [place] [address] [place] [address] Harshad Perez M.D. [address] [place] [phone] Discharge Disposition: Home or Self Care 03/29/2025 10:30 AM CDT Appointment Department of Laboratory Medicine and Pathology, [facility] in [place], [place] [address] [place] [address] Harshad Perez M.D. [address] [place] [phone] 03/29/2025 11:15 AM CDT Nurse Only Division of Hematology in [place], [place] [address] [place] [address] Harshad Perez M.D. [address] [place] [phone] 03/29/2025 1:30 PM CDT Infusion Department of Oncology in [place], [place] [address] [place] [address] Hasrhad Perez M.D. [address] [place] [phone] 04/05/2025 10:10 AM CDT Appointment Department of Laboratory Medicine and Pathology, [facility] in [place], [place] [address] [place] [address] Harshad Perez M.D. [address] [place] [phone] 04/05/2025 12:00 PM CDT Infusion Department of Oncology in [place], [place] [address] [place] [phone] Harshad Perez M.D. [address] [place] [phone] 04/12/2025 11:40 AM CDT Appointment Department of Laboratory Medicine and Pathology, [facility] in [place], [place] [address] [place] [phone] Harshad Perez M.D. [address] [place] [phone] 04/12/2025 1:30 PM CDT Office Visit Division of Hematology in [place], [place] [address] [place] [phone] Tr Hernandez M.D. [address] [place] [phone] 04/12/2025 3:30 PM CDT Infusion Department of Oncology in [place], [place] [address] [place] [phone] Harshad Perez M.D. [address] [place] [phone] 04/19/2025 10:15 AM CDT Infusion Department of Oncology in [place], [place] [address] [place] [phone] Harshad Perez M.D. [address] [place] [phone] 04/26/2025 10:10 AM CDT Appointment Department of Laboratory Medicine and Pathology, [facility], in [place], [place] [address] [place] [phone] Harshad Perez M.D. [address] [place] [phone] 04/26/2025 11:00 AM CDT Nurse Only Division of Hematology in [place], [place] [address] [place] [phone] Harshad Perez M.D. [address] [place] [phone] 04/26/2025 12:00 PM CDT Infusion Department of Oncology in [place], [place] [address] [place] [phone] Harshad Perez M.D. [address] [place] [phone] 04/26/2025 1:30 PM CDT Appointment Division of Pulmonary Medicine in [place], [place] [address] [place] [phone] Harshad Perez M.D. [address] [place] [phone] Discharge Disposition: Home or Self Care 05/03/2025 10:15 AM CDT Infusion Department of Oncology in [place], [place] [address] [place] [phone] Harshad Perez M.D. [address] [place] [phone] 05/10/2025 9:40 AM HELP DESK TECHNICIAN Appointment Department of Laboratory Medicine and Pathology, [facility], in [place], [place] [address] [place] [phone] Constantin López M.D. [address] [place] [phone] 05/10/2025 11:30 AM HELP DESK TECHNICIAN Office Visit Division of Hematology in [place], [place] [address] [place] [phone] Mely Hayden APRN, C.N.P., D.N.P., M.S. [address] [place] [phone] 05/10/2025 1:00 PM HELP DESK TECHNICIAN Infusion Department of Oncology in [place], [place] [address] [place] [phone] Constantin López M.D. [address] [place] [phone] 05/17/2025 10:15 AM HELP DESK TECHNICIAN Infusion Department of Oncology in [place], [place] [address] [place] [phone] Constantin López M.D. [address] [place] [phone] 05/24/2025 10:00 AM HELP DESK TECHNICIAN Appointment Department of Laboratory Medicine and Pathology, [facility] in [address] [phone] Constantin López M.D. [address] [place] [phone] 05/24/2025 10:45 AM HELP DESK TECHNICIAN Appointment Division of Pulmonary Medicine in [place], [place] [address] [place] [phone] Harshad Perez M.D. [address] [place] [phone] Discharge Disposition: Home or Self Care 05/24/2025 12:00 PM HELP DESK TECHNICIAN Infusion Department of Oncology in [place], [place] [address] [place] [phone] Constantin López M.D. [address] [place] [address] 05/31/2025 10:00 AM HELP DESK TECHNICIAN Infusion Department of Oncology in [place], [place] [address] [place] [address] Constantin López M.D. [address] [place] [address] documented as of this encounter Visit Diagnoses Diagnosis Multiple Myeloma Not Having Achieved Remission (HCC)- Primary documented in this encounter Administered Medications Inactive Administered Medications - up to 3 most recent administrations Medication Order MAR Action Action Date Dose Rate Site acetaminophen tablet 650 mg (TylenoL) 650 mg, oral, Once, On Fri02/22/25 at 0915, For 1 dose, Administer 30 minutes prior to monoclonal antibody.Indications:Mult iple Myeloma Not Having Achieved Remission (HCC) Given 02/22/2025 9:06 AM CDT 650 mg bortezomib injection 2.5 mg (Velcade) 2.5 mg (rounded from 2.457 mg = 1.3 mg/m2 1.89 m2 Treatment Plan BSA from Measured weight), subcutaneous, Once, On Fri02/22/25 at 0945, For 1 dose, Rotate injection site.Indications:Multiple Myeloma Not Having Achieved Remission (HCC) Given 02/22/2025 9:45 AM CDT 2.5 mg Left Lower Abdomen daratumumab-hyaluronidase -fihj injection 1,800 mg (Darzalex Faspro) 1,800 mg, subcutaneous, Administer over 5 Minutes, Once, On Fri02/22/25 at 0945, For 1 dose, Administer by SC injection by manual push over approximately 3 - 5 minutes in the abdominal subcutaneous tissues in the left/right locations, alternating between individual doses.Indications:Multipl e Myeloma Not Having Achieved Remission (HCC) Given 02/22/2025 9:46 AM CDT 1,800 mg Right Lower Abdomen diphenhydrAMINE capsule 50 mg (BenadryL) 50 mg, oral, Once, On Fri02/22/25 at 0915, For 1 dose, Administer 30 minutes prior to monoclonal antibodyIndications:Multi ple Myeloma Not Having Achieved Remission (HCC) Given 02/22/2025 9:07 AM CDT 50 mg ondansetron tablet 8 mg (Zofran) 8 mg, oral, Once, On Fri02/22/25 at 0915, For 1 doseIndications:Multiple Myeloma Not Having Achieved Remission (HCC) Given 02/22/2025 9:07 AM CDT 8 mg documented in this encounter Additional Health Concerns Infection Onset Date Last Indicated Resolved Time Protective Environment 01/27/2025 01/27/2025 documented as of this encounter
--- OUTSIDE RECORDS SUMMARY | 2025-02-22 13:08 | XMS_ITS | Encounter Summary ---
Author Organization [facility] Address [address] [place] [address] Care Team Providers Care Scheduling Clerk Name Role Phone Unavailable Primary Care Provider Unavailabl e Reason for Referral * MRI/CAT/PET Scan (Routine) - Closed Specialty Diagnoses / Procedures Referred By Teresa carvalho Referred To Contact Radiology Diagnoses Pain Low Back Unspecified Procedures MR Lumbar Spine without IV Contrast Harshad Perez M.D. [address] [place] [address] Phone: tel:[phone] fax: [facility] Referral ID Status Reason Start Date Expiration Date Visits Re quested Visits Authorized [id number] Closed 02/03/2025 05/06/2026 1 1 Reason for Visit * MRI/CAT/PET Scan (Routine) - Closed Specialty Diagnoses / Procedures Referred By Teresa carvalho Referred To Contact Radiology Diagnoses Pain Low Back Unspecified Procedures MR Lumbar Spine without IV Contrast Harshad Perez M.D. [address] [place] [address] Phone: tel:[phone] fax: [facility] Referral ID Status Reason Start Date Expiration Date Visits Re quested Visits Authorized [id number] Closed 02/03/2025 05/06/2026 1 1 Encounter Details Date Type Department Care Team (Latest Contact Info) Description 02/22/2025 1:08 PM CDT - 02/22/2025 11:59 PM CDT Hospital Encounter Department of Radiology, [facility] in [place], [place] [address] [place] [address] Harshad Perez M.D. [address] [place] [address] Pain Low Back Unspecified Discharge Disposition: Home [...] things needed for daily living? No 01/27/2025 [facility] Utilities Answer Date Recorded In the past 12 months has e electric, gas, oil, or water company threatened to shut off services in your home? No 01/27/2025 Housing Stability Answer Date Recorded What is your living situation today? I have a [facility] place to live 01/27/2025 Sex and Gender Information Value Date Recorded Sex Assigned at Male 01/27/2025 2:34 PM CDT Legal Sex Male 6:33 AM LIME KILN TENDER Gender Identity Male 01/27/2025 2:34 PM CDT [...] you to infusion appointment. 40 tablet 02/15/2025 5 lenalidomide (Revlimid) 10 mg capsuleIndicatio ns:Multiple Myeloma [...] 3 01/28/2025 12:05 PM CDT 01/27/2025 6 Research IRB [id number] iberdomide (CC-220) 0.75 mg capsuleIndicatio ns:Multiple Myeloma [...] 6 01/28/2025 12:05 PM CDT 01/27/2025 5 amitriptyline 2%-ketamine 5%-lidocaine 5% in vanicream Apply topically 4 (four) times a day. Apply to both feet 30 g 1 02/22/2025 5 gabapentin (Neurontin) 300 mg capsule Take [...] capsule 3 01/28/2025 12:05 PM CDT 01/28/2025 documented as of this encounter Plan of Treatment Upcoming Encounters Date Type Department Care Team (Latest Contact Info) Description 03/08/2025 8:00 AM CDT Appointment Department of Laboratory Medicine and Pathology, [facility], in [place], [place] [address] [place] [phone] Constantin López M.D. [address] [place] [phone] 03/08/2025 8:45 AM CDT Infusion Department of Oncology in [place], [place] [address] [place] [phone] Constantin López M.D. [address] [place] [phone] 03/08/2025 10:30 AM CDT Comprehensive Visit Department of Vascular Medicine in [place], [place] [address] [place] [phone] Vic Flores M.D. [address] [place] [phone] 03/11/2025 12:30 PM CDT Diagnostic Division of Pulmonary Medicine in [place], [place] [address] [place] [phone] Constantin López M.D. [address] [place] [phone] 03/11/2025 2:00 PM CDT Appointment Department of Vascular Medicine in [place], [place] [address] [place] [phone] Constantin López M.D. [address] [place] [phone] Discharge Disposition: Home or Self Care 03/15/2025 9:00 AM CDT Comprehensive Visit Department of Spine in [place], [place] [address] [place] [address] Hebert Francis APRN, C.N.P., M.S.N. [address] [place] [phone] 03/15/2025 12:30 PM CDT Appointment Department of Laboratory Medicine and Pathology, [facility] in [place], [place] [address] [place] [address] Harshad Perez M.D. [address] [place] [phone] 03/15/2025 2:30 PM CDT Office Visit Division of Hematology in [place], [place] [address] [place] [phone] Mely Hayden APRN, Mavis.N.P., D.N.P., M.S. [address] [place] [phone] 03/15/2025 4:00 PM CDT Infusion Department of Oncology in [place], [place] [address] [place] [phone] Harshad Perez M.D. [address] [place] [phone] 03/16/2025 1:30 PM CDT Comprehensive Visit Division of Pulmonary Medicine in [place], [place] [address] [place] [phone] Morgan Peck M.D. [address] [place] [phone] 03/22/2025 11:10 AM CDT Appointment Department of Laboratory Medicine and Pathology, [facility] in [place], [place] [address] [place] [address] Harshad Perez M.D. [address] [place] [phone] 03/22/2025 1:00 PM CDT Infusion Department of Oncology in [place], [place] [address] [place] [phone] Harshad Perez M.D. [address] [place] [phone] 03/29/2025 9:15 AM CDT Appointment Division of Pulmonary Medicine in [place], [place] [address] [place] [phone] Harshad Perez M.D. [address] [place] [phone] Discharge Disposition: Home or Self Care 03/29/2025 10:30 AM CDT Appointment Department of Laboratory Medicine and Pathology, [facility] in [place], [place] [address] [place] [phone] Harshad Perez M.D. [address] [place] [phone] 03/29/2025 11:15 AM CDT Nurse Only Division of Hematology in [place], [place] [address] [place] [phone] Harshad Perez M.D. [address] [place] [phone] 03/29/2025 1:30 PM CDT Infusion Department of Oncology in [place], [place] [address] [place] [phone] Harshad Perez M.D. [address] [place] [phone] 04/05/2025 10:10 AM CDT Appointment Department of Laboratory Medicine and Pathology, [facility] in [place], [place] [address] [place] [phone] Harshad Perez M.D. [address] [place] [phone] 04/05/2025 12:00 PM CDT Infusion Department of Oncology in [place], [place] [address] [place] [phone] Harshad Perez M.D. [address] [place] [phone] 04/12/2025 11:40 AM CDT Appointment Department of Laboratory Medicine and Pathology, [facility] in [place], [place] [address] [place] [address] Harshad Perez M.D. [address] [place] [phone] 04/12/2025 1:30 PM CDT Office Visit Division of Hematology in [place], [place] [address] [place] [phone] Tr Hernandez M.D. [address] [place] [phone] 04/12/2025 3:30 PM CDT Infusion Department of Oncology in [place], [place] [address] [place] [phone] Harshad Perez M.D. [address] [place] [phone] 04/19/2025 10:15 AM CDT Infusion Department of Oncology in [place], [place] [address] [place] [phone] Harshad Perez M.D. [address] [place] [phone] 04/26/2025 10:10 AM CDT Appointment Department of Laboratory Medicine and Pathology, [facility], in [place], [place] [address] [place] [phone] Harshad Perez M.D. [address] [place] [phone] 04/26/2025 11:00 AM CDT Nurse Only Division of Hematology in [place], [place] [address] [place] [phone] Harshad Perez M.D. [address] [place] [phone] 04/26/2025 12:00 PM CDT Infusion Department of Oncology in [place], [place] [address] [place] [phone] Harshad Perez M.D. [address] [place] [phone] 04/26/2025 1:30 PM CDT Appointment Division of Pulmonary Medicine in [place], [place] [address] [place] [phone] Harshad Perez M.D. [address] [place] [phone] Discharge Disposition: Home or Self Care 05/03/2025 10:15 AM CDT Infusion Department of Oncology in [place], [place] [address] [place] [phone] Harshad Perez M.D. [address] [place] [phone] 05/10/2025 9:40 AM LIME KILN TENDER Appointment Department of Laboratory Medicine and Pathology, [facility], in [place], [place] [address] [place] [address] Constantin López M.D. [address] [place] [phone] 05/10/2025 11:30 AM LIME KILN TENDER Office Visit Division of Hematology in [address] [phone] Mely Hayden APRN, C.N.P., D.N.P., M.S. [address] [place] [phone] 05/10/2025 1:00 PM LIME KILN TENDER Infusion Department of Oncology in [place], [place] [address] [place] [phone] Constantin López M.D. [address] [place] [phone] 05/17/2025 10:15 AM LIME KILN TENDER Infusion Department of Oncology in [place], [place] [address] [place] [phone] Constantin López M.D. [address] [place] [phone] 05/24/2025 10:00 AM LIME KILN TENDER Appointment Department of Laboratory Medicine and Pathology, [facility], in [address] [phone] Constantin López M.D. [address] [place] [phone] 05/24/2025 10:45 AM LIME KILN TENDER Appointment Division of Pulmonary Medicine in [address] [phone] Harshad Perez M.D. [address] [place] [phone] Discharge Disposition: Home or Self Care 05/24/2025 12:00 PM LIME KILN TENDER Infusion Department of Oncology in [place], [place] [address] [place] [address] Constantin López M.D. [address] [place] [address] 05/31/2025 10:00 AM LIME KILN TENDER Infusion Department of Oncology in [place], [place] [address] [place] [address] Constantin López M.D. [address] [place] [address] documented as of this encounter Procedures Procedure Name Priority Date/Time Associated Diagnosis Comments MR LUMBAR SPINE WITHOUT IV CONTRAST RAD - Routine (most inpatients and all outpatients) 02/22/2025 2:33 PM CDT Pain Low Back Unspecified documented in this encounter Results * MR Lumbar Spine without IV Contrast (02/22/2025 2:33 PM CDT) Anatomical Region Laterality Modality Lumbar Spine, Neuroradiology RST LOS, Neuroradiology ARZ LOS, Neuroradiology FLA LOS N/A Magnetic Resonance Impressions 02/23/2025 10:07 AM [...] without focal disc protrusion or spinal stenosis. Harshad JUAREZ MRI PROCEDURES Nadia l Result documented in this encounter Visit Diagnoses Diagnosis Pain Low Back Unspecified documented in this encounter Additional Health Concerns Infection Onset Date Last Indicated Resolved Time Protective Environment 01/27/2025 01/27/2025 documented as of this encounter
--- OUTSIDE RECORDS SUMMARY | 2025-03-01 09:12 | XMS_ITS | Encounter Summary ---
Author Organization [facility] Address [address] [place] [address] Care Team Providers Care Ham Rolling Machine Operator Name Role Phone Unavailable Primary Care Provider Unavailabl e Encounter Details Date Type Department Care Team (Latest Contact Info) Description 03/01/2025 9:12 AM CDT - 03/01/2025 11:59 PM CDT Hospital Encounter Division of Pulmonary Medicine in [place], [place] [address] [place] [address] Harshad Perez M.D. [address] [place] [address] Multiple Myeloma Not Having Achieved Remission (HCC) [...] Recorded In the past 12 months has [employer], gas, oil, or water Appear threatened to shut off services in your home? No 01/27/2025 Housing Stability Answer Date Recorded What is your living situation today? 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 Apply to both feet 30 g 1 02/23/2025 acyclovir (Zovirax) 400 mg tabletIndication s:Multiple Myeloma Not Having Achieved Remission (HCC) Take 1 tablet (400 mg total) by mouth 2 (two) times a day. 60 tablet 6 02/23/2025 allopurinoL (Zyloprim) 100 mg tablet Take 3 [...] to infusion appointment. 40 tablet 02/15/2025 5 gabapentin (Neurontin) 300 mg capsule Take 1 capsule (300 mg total) by mouth 2 (two) times a day. 30 capsule 02/23/2025 levoFLOXacin (Levaquin) 250 mg tabletIndication s:Multiple Myeloma Not Having Achieved Remission (HCC) Take 1 tablet (250 mg total) by mouth daily for 30 days. 30 tablet 02/23/2025 5 omeprazole (PriLOSEC) [address] capsule Take 1 capsule (20 mg total) by mouth daily. 90 capsule 3 02/23/2025 ondansetron (Zofran) 8 mg tabletIndication s:Multiple Myeloma [...] 12:05 PM CDT 01/27/2025 6 Research IRB [id number] iberdomide (CC-220) 0.75 mg capsuleIndicatio ns:Multiple Myeloma Not Having Achieved Remission (HCC) Take 1 capsule (0.75 mg total) by mouth daily for 21 days. Take with or without food, at approximately the same time each day on days 1-21. 1 Bottle 02/15/2025 documented as of this encounter Progress Notes * Oswaldo Allen R.R.T., ShelleyRDick. - 03/01/2025 9:30 AM CDT 03/01/25 0924 Respiratory Charges $Pentamidine Administration Yes Mr. Joey Laird arrived in [facility] for out-patient Pentamidine treatment. Pre-treated with albuterol nebulizer, patient tolerated well. Aerosol generating procedure done wearing N95 mask. Electronically signed by: Oswaldo Allen R.R.T., [place] 03/01/25 9:30 AM CDT documented in this encounter Plan of Treatment Upcoming Encounters Date Type Department Care Team (Latest Contact Info) Description 03/08/2025 8:00 AM CDT Appointment Department of Laboratory Medicine and Pathology, [facility] in [place], [place] [address] [place] [phone] Constantin López M.D. [address] [place] [phone] 03/08/2025 8:45 AM CDT Infusion Department of Oncology in [place], [place] [address] [place] [phone] Constantin López M.D. [address] [place] [phone] 03/08/2025 10:30 AM CDT Comprehensive Visit Department of Vascular Medicine in [place], [place] [address] [place] [phone] Vic Flores M.D. [address] [place] [phone] 03/11/2025 12:30 PM CDT Diagnostic Division of Pulmonary Medicine in [place], [place] [address] [place] [address] Constantin López M.D. [address] [place] [phone] 03/11/2025 2:00 PM CDT Appointment Department of Vascular Medicine in [place], [place] [address] [place] [address] Constantin López M.D. [address] [place] [phone] Discharge Disposition: Home or Self Care 03/15/2025 9:00 AM CDT Comprehensive Visit Department of Spine in [place], [place] [address] [place] [address] Hebert Francis APRN, C.N.P., M.S.N. [address] [place] [phone] 03/15/2025 12:30 PM CDT Appointment Department of Laboratory Medicine and Pathology, [facility] in [place], [place] [address] [place] [address] Harshad Perez M.D. [address] [place] [phone] 03/15/2025 2:30 PM CDT Office Visit Division of Hematology in [place], [place] [address] [place] [address] Mely Hayden APRN, C.N.P., D.N.P., M.S. [address] [place] [phone] 03/15/2025 4:00 PM CDT Infusion Department of Oncology in [place], [place] [address] [place] [address] Harshad Perez M.D. [address] [place] [phone] 03/16/2025 1:30 PM CDT Comprehensive Visit Division of Pulmonary Medicine in [place], [place] [address] [place] [phone] Morgan Peck M.D. [address] [place] [phone] 03/22/2025 11:10 AM CDT Appointment Department of Laboratory Medicine and Pathology, [facility] in [place], [place] [address] [place] [phone] Harshad Perez M.D. [address] [place] [phone] 03/22/2025 1:00 PM CDT Infusion Department of Oncology in [place], [place] [address] [place] [address] Harshad Perez M.D. [address] [place] [phone] 03/29/2025 9:15 AM CDT Appointment Division of Pulmonary Medicine in [place], [place] [address] [place] [phone] Harshad Perez M.D. [address] [place] [phone] Discharge Disposition: Home or Self Care 03/29/2025 10:30 AM CDT Appointment Department of Laboratory Medicine and Pathology, [facility] in [place], [place] [address] [place] [address] Harshad Perez M.D. [address] [place] [phone] 03/29/2025 11:15 AM CDT Nurse Only Division of Hematology in [place], [place] [address] [place] [address] Harshad Perez M.D. [address] [place] [phone] 03/29/2025 1:30 PM CDT Infusion Department of Oncology in [place], [place] [address] [place] [phone] Harshad Perez M.D. [address] [place] [phone] 04/05/2025 10:10 AM CDT Appointment Department of Laboratory Medicine and Pathology, [facility] in [place], [place] [address] [place] [address] Harshad Perez M.D. [address] [place] [phone] 04/05/2025 12:00 PM CDT Infusion Department of Oncology in [place], [place] [address] [place] [address] Harshad Perez M.D. [address] [place] [phone] 04/12/2025 11:40 AM CDT Appointment Department of Laboratory Medicine and Pathology, [facility], in [place], [place] [address] [place] [address] Harshad Perez M.D. [address] [place] [phone] 04/12/2025 1:30 PM CDT Office Visit Division of Hematology in [place], [place] [address] [place] [address] Tr Hernandez M.D. [address] [place] [address] 04/12/2025 3:30 PM CDT Infusion Department of Oncology in [place], [place] [address] [place] [address] Harshad Perez M.D. [address] [place] [phone] 04/19/2025 10:15 AM CDT Infusion Department of Oncology in [place], [place] [address] [place] [address] Harshad Perez M.D. [address] [place] [phone] 04/26/2025 10:10 AM CDT Appointment Department of Laboratory Medicine and Pathology, [facility] in [place], [place] [address] [place] [address] Harshad Perez M.D. [address] [place] [phone] 04/26/2025 11:00 AM CDT Nurse Only Division of Hematology in [place], [place] [address] [place] [address] Harshad Perez M.D. [address] [place] [phone] 04/26/2025 12:00 PM CDT Infusion Department of Oncology in [place], [place] [address] [place] [address] Harshad Perez M.D. [address] [place] [phone] 04/26/2025 1:30 PM CDT Appointment Division of Pulmonary Medicine in [place], [place] [address] [place] [phone] Harshad Perez M.D. [address] [place] [phone] Discharge Disposition: Home or Self Care 05/03/2025 10:15 AM CDT Infusion Department of Oncology in [place], [place] [address] [place] [phone] Harshad Perez M.D. [address] [place] [phone] 05/10/2025 9:40 AM JOURNEYMAN LEVEL ACOUSTIC ANALYST Appointment Department of Laboratory Medicine and Pathology, [facility] in [place], [place] [address] [place] [phone] Constantin López M.D. [address] [place] [phone] 05/10/2025 11:30 AM JOURNEYMAN LEVEL ACOUSTIC ANALYST Office Visit Division of Hematology in [address] [phone] Mely Hayden APRN, C.N.P., D.N.P., M.S. [address] [place] [phone] 05/10/2025 1:00 PM JOURNEYMAN LEVEL ACOUSTIC ANALYST Infusion Department of Oncology in [address] [phone] Constantin López M.D. [address] [place] [phone] 05/17/2025 10:15 AM JOURNEYMAN LEVEL ACOUSTIC ANALYST Infusion Department of Oncology in [place], [place] [address] [place] [phone] Constantin López M.D. [address] [place] [phone] 05/24/2025 10:00 AM JOURNEYMAN LEVEL ACOUSTIC ANALYST Appointment Department of Laboratory Medicine and Pathology, [facility], in [place], [place] [address] [place] [phone] Constantin López M.D. [address] [place] [phone] 05/24/2025 10:45 AM JOURNEYMAN LEVEL ACOUSTIC ANALYST Appointment Division of Pulmonary Medicine in [place], [place] [address] [place] [phone] Harshad Perez M.D. [address] [place] [phone] Discharge Disposition: Home or Self Care 05/24/2025 12:00 PM JOURNEYMAN LEVEL ACOUSTIC ANALYST Infusion Department of Oncology in [place], [place] [address] [place] [phone] Constantin López M.D. [address] [place] [phone] 05/31/2025 10:00 AM JOURNEYMAN LEVEL ACOUSTIC ANALYST Infusion Department of Oncology in [place], [place] [address] [place] [phone] Constantin López M.D. [address] [place] [phone] Scheduled Orders Name Type Priority Associated Diagnoses Orde r Schedule Nebulized Pentamidine PFT Routine Multiple Myeloma Not Having Achieved Remission (HCC) Once for 1 Occurrences starting 03/01/2025 until 03/01/2025 documented as of this encounter Visit Diagnoses Diagnosis Multiple Myeloma Not Having Achieved Remission (HCC)- Primary documented in this encounter Administered Medications Inactive Administered Medications - up to 3 most recent administrations Medication Order MAR Action Action Date Dose Rate Site albuterol nebulizer solution 2.5 mg 2.5 mg, nebulization, Once, On Fri03/01/25 at 0945, For 1 doseIndications:Multiple Myeloma Not Having Achieved Remission (HCC) Given 03/01/2025 9:22 AM CDT 2.5 mg pentamidine nebulizer solution (Nebupent) 300 mg (Nebupent) 300 mg, inhalation, Once, On Fri03/01/25 at 0945, For 1 dose, Requires Respirgard II nebulizer If dispensed as powder vial, reconstitute each 300 mg vial with 6 mL SWFI to a final concentration of 50 mg/mL, using an 18 gauge needle. For INHALATION only. Protect from light, Indications: Prophylaxis, medicalIndications:Prophylaxis, medical Given 03/01/2025 9:24 AM CDT 300 mg documented in this encounter Additional Health Concerns Infection Onset Date Last Indicated Resolved Time Protective Environment 01/27/2025 01/27/2025 documented as of this encounter
--- OUTSIDE RECORDS SUMMARY | 2025-03-01 11:15 | XMS_ITS | Encounter Summary ---
Author Organization [facility] Address [address] [place] [address] Care Team Providers Care Power Operator Name Role Phone Unavailable Primary Care Provider Unavailabl e Reason for Visit * Episode Based Medications (Routine) - Authorized Specialty Diagnoses / Procedures Referred By Teresa carvalho Referred To Contact Diagnoses Multiple Myeloma Not Having Achieved Remission (HCC) Procedures HI ONDANSETRON HCL INJECTION HI DARATUMUMAB, HYALURONIDASE HI BORTEZOMIB INJECTION Constantin López M.D. [address] [place] [phone] Phone: tel: fax: Constantin López M.D. [address] [place] [address] Phone: tel: fax: Referral ID Status Reason Start Date Expiration Date V isits Requested Visits Authorized [id number] Authorized 02/15/2025 05/18/2026 99 99 Encounter Details Date Type Department Care Team (Late st Contact Info) Description 03/01/2025 11:15 AM CDT Nurse Only Division of Hematology in [place], [place] [address] [place] [phone] Constantin López M.D. [address] [place] [phone] Rula Oquendo R.N., O.C.N. Social History Tobacco Use Types Packs/Day [...] things needed for daily living? No 01/27/2025 [facility] Utilities Answer Date Recorded In the past 12 months has [employer], gas, oil, or water company threatened to shut off services in your home? No 01/27/2025 Housing Stability Answer Date Recorded What is your living situation today? 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 Gender Identity Male 01/27/2025 2:34 PM CDT Sexual Orientation Straight 01/27/2025 2: 34 PM CDT documented as of this encounter Last Filed Vital Signs Vital Sign Reading Time Taken Comments Blood Pressure 99/62 03/01/2025 11:17 AM CDT Pulse 89 03/01/2025 11:17 AM CDT Temperature - - Respiratory Rate - - Oxygen Saturation - - Inhaled Oxygen Concentration - - Weight 73.3 kg (161 lb 9.6 oz) 03/01/2025 11:17 AM CDT Height 173.2 cm (5' 8.19) 03/01/2025 11:17 AM C DT Body Mass Index 24.43 03/01/2025 11:17 AM CDT documented in this encounter Plan of Treatment Upcoming Encounters Date Type Department Care Team (Latest Contact Info) Description 03/08/2025 8:00 AM CDT Appointment Department of Laboratory Medicine and Pathology, [facility], in [place], [place] [address] [place] [phone] Constantin López M.D. [address] [place] [phone] 03/08/2025 8:45 AM CDT Infusion Department of Oncology in [place], [place] [address] [place] [phone] Constantin López M.D. [address] [place] [phone] 03/08/2025 10:30 AM CDT Comprehensive Visit Department of Vascular Medicine in [place], [place] [address] [place] [phone] Vic Flores M.D. [address] [place] [phone] 03/11/2025 12:30 PM CDT Diagnostic Division of Pulmonary Medicine in [place], [place] [address] [place] [phone] Constantin López M.D. [address] [place] [phone] 03/11/2025 2:00 PM CDT Appointment Department of Vascular Medicine in [place], [place] [address] [place] [phone] Constantin López M.D. [address] [place] [phone] Discharge Disposition: Home or Self Care 03/15/2025 9:00 AM CDT Comprehensive Visit Department of Spine in [place], [place] [address] [place] [address] Hebert Francis APRN, C.N.P., M.S.N. [address] [place] [phone] 03/15/2025 12:30 PM CDT Appointment Department of Laboratory Medicine and Pathology, [facility] in [place], [place] [address] [place] [address] Harshad Perez M.D. [address] [place] [phone] 03/15/2025 2:30 PM CDT Office Visit Division of Hematology in [place], [place] [address] [place] [phone] Mely Hayden APRN, C.N.P., D.N.P., M.S. [address] [place] [phone] 03/15/2025 4:00 PM CDT Infusion Department of Oncology in [place], [place] [address] [place] [address] Harshad Perez M.D. [address] [place] [phone] 03/16/2025 1:30 PM CDT Comprehensive Visit Division of Pulmonary Medicine in [place], [place] [address] [place] [phone] Morgan Peck M.D. [address] [place] [phone] 03/22/2025 11:10 AM CDT Appointment Department of Laboratory Medicine and Pathology, [facility] in [place], [place] [address] [place] [address] Harshad Perez M.D. [address] [place] [phone] 03/22/2025 1:00 PM CDT Infusion Department of Oncology in [place], [place] [address] [place] [phone] Harshad Perez M.D. [address] [place] [phone] 03/29/2025 9:15 AM CDT Appointment Division of Pulmonary Medicine in [place], [place] [address] [place] [phone] Harshad Perez M.D. [address] [place] [phone] Discharge Disposition: Home or Self Care 03/29/2025 10:30 AM CDT Appointment Department of Laboratory Medicine and Pathology, [facility] in [place], [place] [address] [place] [phone] Harshad Perez M.D. [address] [place] [phone] 03/29/2025 11:15 AM CDT Nurse Only Division of Hematology in [place], [place] [address] [place] [phone] Harshad Perez M.D. [address] [place] [phone] 03/29/2025 1:30 PM CDT Infusion Department of Oncology in [place], [place] [address] [place] [phone] Harshad Perez M.D. [address] [place] [phone] 04/05/2025 10:10 AM CDT Appointment Department of Laboratory Medicine and Pathology, [facility] in [place], [place] [address] [place] [phone] Harshad Perez M.D. [address] [place] [phone] 04/05/2025 12:00 PM CDT Infusion Department of Oncology in [place], [place] [address] [place] [phone] Harshad Perez M.D. [address] [place] [phone] 04/12/2025 11:40 AM CDT Appointment Department of Laboratory Medicine and Pathology, [facility] in [place], [place] [address] [place] [address] Harshad Perez M.D. [address] [place] [phone] 04/12/2025 1:30 PM CDT Office Visit Division of Hematology in [place], [place] [address] [place] [phone] Tr Hernandez M.D. [address] [place] [phone] 04/12/2025 3:30 PM CDT Infusion Department of Oncology in [place], [place] [address] [place] [phone] Harshad Perez M.D. [address] [place] [phone] 04/19/2025 10:15 AM CDT Infusion Department of Oncology in [place], [place] [address] [place] [phone] Harshad Perez M.D. [address] [place] [phone] 04/26/2025 10:10 AM CDT Appointment Department of Laboratory Medicine and Pathology, [facility], in [place], [place] [address] [place] [phone] Harshad Perez M.D. [address] [place] [phone] 04/26/2025 11:00 AM CDT Nurse Only Division of Hematology in [place], [place] [address] [place] [phone] Harshad Perez M.D. [address] [place] [phone] 04/26/2025 12:00 PM CDT Infusion Department of Oncology in [place], [place] [address] [place] [phone] Harshad Perez M.D. [address] [place] [phone] 04/26/2025 1:30 PM CDT Appointment Division of Pulmonary Medicine in [place], [place] [address] [place] [phone] Harshad Perez M.D. [address] [place] [phone] Discharge Disposition: Home or Self Care 05/03/2025 10:15 AM CDT Infusion Department of Oncology in [place], [place] [address] [place] [phone] Harshad Perez M.D. [address] [place] [phone] 05/10/2025 9:40 AM DRYING OVEN ATTENDANT Appointment Department of Laboratory Medicine and Pathology, [facility], in [place], [place] [address] [place] [address] Constantin López M.D. [address] [place] [phone] 05/10/2025 11:30 AM DRYING OVEN ATTENDANT Office Visit Division of Hematology in [address] [phone] Mely Hayden APRN, C.N.P., D.N.P., M.S. [address] [place] [phone] 05/10/2025 1:00 PM DRYING OVEN ATTENDANT Infusion Department of Oncology in [address] [phone] Constantin López M.D. [address] [place] [phone] 05/17/2025 10:15 AM DRYING OVEN ATTENDANT Infusion Department of Oncology in [address] [address] Constantin López M.D. [address] [place] [phone] 05/24/2025 10:00 AM DRYING OVEN ATTENDANT Appointment Department of Laboratory Medicine and Pathology, [facility], in [address] [phone] Constantin López M.D. [address] [place] [phone] 05/24/2025 10:45 AM DRYING OVEN ATTENDANT Appointment Division of Pulmonary Medicine in [address] [phone] Harshad Perez M.D. [address] [place] [phone] Discharge Disposition: Home or Self Care 05/24/2025 12:00 PM DRYING OVEN ATTENDANT Infusion Department of Oncology in [place], [place] [address] [place] [address] Constantin López M.D. [address] [place] [phone] 05/31/2025 10:00 AM DRYING OVEN ATTENDANT Infusion Department of Oncology in [place], [place] [address] [place] [address] Constantin López M.D. [address] [place] [address] documented as of this encounter Visit Diagnoses Diagnosis Multiple Myeloma Not Having Achieved Remission (HCC)- Primary documented in this encounter Additional Health Concerns Infection Onset Date Last Indicated Resolved Time Protective Environment 01/27/2025 01/27/2025 documented as of this encounter
--- OUTSIDE RECORDS SUMMARY | 2025-03-01 13:30 | XMS_ITS | Encounter Summary ---
Author Organization [facility] Address [address] [place] [id number] Care Team Providers Care Machine Set Up Operator Paper Goods Name Role Phone Unavailable Primary Care Provider Unavailabl e Reason for Visit * Episode Based Medications (Routine) - Authorized Specialty Diagnoses / Procedures Referred By Teresa carvalho Referred To Contact Diagnoses Multiple Myeloma Not Having Achieved Remission (HCC) Procedures MS ONDANSETRON HCL INJECTION MS DARATUMUMAB, HYALURONIDASE MS BORTEZOMIB INJECTION Constantin López M.D. [address] [place] [phone] Phone: tel: fax: Constantin López M.D. [address] [place] [phone] Phone: tel: fax: Referral ID Status Reason Start Date Expiration Date V isits Requested Visits Authorized [id number] Authorized 02/15/2025 05/18/2026 99 99 Encounter Details Date Type Department Care Team (Late st Contact Info) Description 03/01/2025 1:30 PM CDT Infusion Department of Oncology in [place], [place] [address] [place] [phone] Constantin López M.D. [address] [place] [phone] Multiple Myeloma Not Having Achieved Remission (HCC) [...] things needed for daily living? No 01/27/2025 [facility] Utilities Answer Date Recorded In the past 12 months has [employer], gas, oil, or water company threatened to shut off services in your home? No 01/27/2025 Housing Stability Answer Date Recorded What is your living situation today? I have a [facility] place to live 01/27/2025 Sex and Gender Information Value Date Recorded Sex Assigned at Male 01/27/2025 2:34 PM CDT Legal Sex Male 6:33 AM [employer] Gender Identity Male 01/27/2025 2:34 PM CDT Sexual Orientation Straight 01/27/2025 2: 34 PM CDT documented as of this encounter Plan of Treatment Upcoming Encounters Date Type Department Care Team (Latest Contact Info) Description 03/08/2025 8:00 AM CDT Appointment Department of Laboratory Medicine and Pathology, [facility], in [place], [place] 200 [place] [address] Constantin López M.D. 200 [place] [phone] 03/08/2025 8:45 AM CDT Infusion Department of Oncology in [place], [place] [address] [place] [phone] Constantin López M.D. [address] [place] [phone] 03/08/2025 10:30 AM CDT Comprehensive Visit Department of Vascular Medicine in [place], [place] [address] [place] [phone] Vic Flores M.D. [address] [place] [phone] 03/11/2025 12:30 PM CDT Diagnostic Division of Pulmonary Medicine in [place], [place] [address] [place] [phone] Constantin López M.D. [address] [place] [phone] 03/11/2025 2:00 PM CDT Appointment Department of Vascular Medicine in [place], [place] [address] [place] [phone] Constantin López M.D. [address] [place] [phone] Discharge Disposition: Home or Self Care 03/15/2025 9:00 AM CDT Comprehensive Visit Department of Spine in [place], [place] [address] [place] [phone] Hebert Francis APRN, C.N.P., M.S.N. [address] [place] [phone] 03/15/2025 12:30 PM CDT Appointment Department of Laboratory Medicine and Pathology, [facility], in [place], [place] [address] [place] [phone] Harshad Perez M.D. [address] [place] [phone] 03/15/2025 2:30 PM CDT Office Visit Division of Hematology in [place], [place] [address] [place] [phone] Mely Hayden APRN, C.N.P., D.N.P., M.S. [address] [place] [phone] 03/15/2025 4:00 PM CDT Infusion Department of Oncology in [place], [place] [address] [place] [phone] Harshad Perez M.D. [address] [place] [phone] 03/16/2025 1:30 PM CDT Comprehensive Visit Division of Pulmonary Medicine in [place], [place] [address] [place] [phone] Morgan Peck M.D. [address] [place] [phone] 03/22/2025 11:10 AM CDT Appointment Department of Laboratory Medicine and Pathology, [facility], in [place], [place] [address] [place] [phone] Harshad Perez M.D. [address] [place] [phone] 03/22/2025 1:00 PM CDT Infusion Department of Oncology in [place], [place] [address] [place] [phone] Harshad Perez M.D. [address] [place] [phone] 03/29/2025 9:15 AM CDT Appointment Division of Pulmonary Medicine in [address] [place] [phone] Harshad Perez M.D. [address] [place] [phone] Discharge Disposition: Home or Self Care 03/29/2025 10:30 AM CDT Appointment Department of Laboratory Medicine and Pathology, [facility] in [place], [place] [address] [place] [phone] Harshad Perez M.D. [address] [place] [phone] 03/29/2025 11:15 AM CDT Nurse Only Division of Hematology in [place], [place] [address] [place] [phone] Harshad Perez M.D. [address] [place] [phone] 03/29/2025 1:30 PM CDT Infusion Department of Oncology in [place], [place] [address] [place] [phone] Harshad Perez M.D. [address] [place] [phone] 04/05/2025 10:10 AM CDT Appointment Department of Laboratory Medicine and Pathology, [facility], in [place], [place] [address] [place] [address] Harshad Perez M.D. [address] [place] [phone] 04/05/2025 12:00 PM CDT Infusion Department of Oncology in [place], [place] [address] [place] [address] Harshad Perez M.D. [address] [place] [phone] 04/12/2025 11:40 AM CDT Appointment Department of Laboratory Medicine and Pathology, [facility], in [place], [place] [address] [place] [address] Harshad Perez M.D. [address] [place] [phone] 04/12/2025 1:30 PM CDT Office Visit Division of Hematology in [place], [place] [address] [place] [phone] Tr Hernandez M.D. [address] [place] [phone] 04/12/2025 3:30 PM CDT Infusion Department of Oncology in [place], [place] [address] [place] [address] Harshad Perez M.D. [address] [place] [phone] 04/19/2025 10:15 AM CDT Infusion Department of Oncology in [place], [place] [address] [place] [address] Harshad Perez M.D. [address] [place] [phone] 04/26/2025 10:10 AM CDT Appointment Department of Laboratory Medicine and Pathology, [facility], in [place], [place] [address] [place] [address] Harshad Perez M.D. [address] [place] [phone] 04/26/2025 11:00 AM CDT Nurse Only Division of Hematology in [place], [place] [address] [place] [address] Harshad Perez M.D. [address] [place] [phone] 04/26/2025 12:00 PM CDT Infusion Department of Oncology in [place], [place] [address] [place] [phone] Harshad Perez M.D. [address] [place] [phone] 04/26/2025 1:30 PM CDT Appointment Division of Pulmonary Medicine in [place], [place] [address] [place] [phone] Harshad Perez M.D. [address] [place] [phone] Discharge Disposition: Home or Self Care 05/03/2025 10:15 AM CDT Infusion Department of Oncology in [address] [phone] Harshad Perez M.D. [address] [place] [phone] 05/10/2025 9:40 AM [employer] Appointment Department of Laboratory Medicine and Pathology, [facility], in [place], [place] [address] [place] [phone] Constantin López M.D. [address] [place] [phone] 05/10/2025 11:30 AM [employer] Office Visit Division of Hematology in [address] [phone] Mely Hayden, ANY, C.N.P., D.N.P., M.S. [address] [place] [phone] 05/10/2025 1:00 PM [employer] Infusion Department of Oncology in [place], [place] [address] [place] [phone] Constantin López M.D. [address] [place] [phone] 05/17/2025 10:15 AM [employer] Infusion Department of Oncology in [place], [place] [address] [place] [phone] Constantin Lpóez M.D. [address] [place] [phone] 05/24/2025 10:00 AM [employer] Appointment Department of Laboratory Medicine and Pathology, [facility] in [place], [place] [address] [place] [phone] Constantin López M.D. [address] [place] [phone] 05/24/2025 10:45 AM [employer] Appointment Division of Pulmonary Medicine in [address] [phone] Harshad Perez M.D. [address] [place] [phone] Discharge Disposition: Home or Self Care 05/24/2025 12:00 PM [employer] Infusion Department of Oncology in [place], [place] [address] [place] [phone] Constantin López M.D. [address] [place] [phone] 05/31/2025 10:00 AM [employer] Infusion Department of Oncology in [place], [place] [address] [place] [phone] Constantin López M.D. [address] [place] [phone] documented as of this encounter Visit Diagnoses Diagnosis Multiple Myeloma Not Having Achieved Remission (HCC)- Primary documented in this encounter Administered Medications Inactive Administered Medications - up to 3 most recent administrations Medication Order MAR Action Action Date Dose Rate Site bortezomib injection 2.5 mg (Velcade) 2.5 mg (rounded from 2.457 mg = 1.3 mg/m2 1.89 m2 Treatment Plan BSA from Measured weight), subcutaneous, Once, On Fri03/01/25 at 1345, For 1 dose, Rotate injection site.Indications:Multipl e Myeloma Not Having Achieved Remission (HCC) Given 03/01/2025 1:38 PM CDT 2.5 mg Right Lower Abdomen daratumumab-hyaluronidas e-fihj injection 1,800 mg (Darzalex Faspro) 1,800 mg, subcutaneous, Administer over 5 Minutes, Once, On Fri03/01/25 at 1345, For 1 dose, Administer by SC injection by manual push over approximately 3 - 5 minutes in the abdominal subcutaneous tissues in the left/right locations, alternating between individual doses.Indications:Multip le Myeloma Not Having Achieved Remission (HCC) Given 03/01/2025 1:39 PM CDT 1,800 mg Left Lower Abdomen ondansetron tablet 8 mg (Zofran) 8 mg, oral, Once, On Fri03/01/25 at 1315, For 1 doseIndications:Multiple Myeloma Not Having Achieved Remission (HCC) Given 03/01/2025 1:24 PM CDT 8 mg sodium chloride 0.9 % injection 10 mL 10 mL, intravenous, As needed, line care, Starting on Fri03/01/25 at 1317, Prior to blood sampling, post blood transfusion, or post blood sampling.Indications:Mul tiple Myeloma Not Having Achieved Remission (HCC) Given 03/01/2025 1:46 PM CDT 20 mL sodium chloride 0.9 % injection 3 mL 3 mL, intravenous, As needed, line care, Starting on Fri03/01/25 at 1317, Prior to and following infusion and between multiple consecutive infusions.Indications:Mu ltiple Myeloma Not Having Achieved Remission (HCC) Given 03/01/2025 1:30 PM CDT 3 mL zoledronic usnb-[id number]-pmiqd IVPB 4 mg (Zometa) 4 mg, intravenous, at 400 mL/hr, Administer over 15 Minutes, Once, On Fri03/01/25 at 1345, For 1 dose, - Check serum creatinine prior to administration of zoledronic acid. Dose is based on creatinine clearance calculated by the Cockcroft-Gault equation. - If creatinine clearance is greater than 60 mL/min administer 4 mg dose. - If creatinine clearance is between 50 and 60 mL/min administer 3.5 mg dose. - If creatinine clearance is between 40 and 49 mL/min administer 3.3 mg dose. - If creatinine clearance is between 30 and 39 mL/min administer 3 mg dose. - HOLD if creatinine clearance is less than 30 mL/min and notify provider. - Pharmacist is authorized to adjust zoledronic acid dose based on creatinine clearance with every administration, as directed.Indications:Mul tiple Myeloma Not Having Achieved Remission (HCC) New Bag 03/01/2025 1:34 PM CDT 4 mg 400 mL/hr documented in this encounter Additional Health Concerns Infection Onset Date Last Indicated Resolved Time Protective Environment 01/27/2025 01/27/2025 documented as of this encounter
--- OUTSIDE RECORDS SUMMARY | 2025-03-02 17:39 | XMS_ITS | Encounter Summary ---
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 200 [place] [address] Phone: tel: fax: [facility] Referral ID Status Reason Start Date Expiration Date Visits Re quested Visits Authorized [id number] Closed 01/26/2025 04/28/2026 1 1 Encounter Details Date Type Department Care Team (Late st Contact Info) Description 01/26/2025 Orders Only Division of Hematology in [place], [place] [address] [place] [phone] Harshad Perez M.D. 200 [place] [address] Multiple Myeloma Not Having Achieved Remission (HCC) [...] things needed for daily living? No 01/27/2025 [facility] Utilities Answer Date Recorded In the past 12 months has [employer] electric, gas, oil, or water [employer] threatened to shut off services in your home? No 01/27/2025 Housing Stability Answer Date Recorded What is your living situation today? I have a [facility] place to live 01/27/2025 Sex and Gender Information Value Date Recorded Sex Assigned at Male 01/27/2025 2:34 PM CDT Legal Sex Male 6:33 AM [employer] Gender Identity Male 01/27/2025 2:34 PM CDT Sexual Orientation Straight 01/27/2025 2: 34 PM CDT documented as of this encounter Plan of Treatment Upcoming Encounters Date Type Department Care Team (Latest Contact Info) Description 03/08/2025 8:00 AM CDT Appointment Department of Laboratory Medicine and Pathology, [facility], in [place], [place] [address] [place] [address] Constantin López M.D. [address] [place] [phone] 03/08/2025 8:45 AM CDT Infusion Department of Oncology in [place], [place] [address] [place] [phone] Constantin López M.D. [address] [place] [phone] 03/08/2025 10:30 AM CDT Comprehensive Visit Department of Vascular Medicine in [place], [place] [address] [place] [address] Vic Flores M.D. [address] [place] [phone] 03/11/2025 12:30 PM CDT Diagnostic Division of Pulmonary Medicine in [place], [place] [address] [place] [phone] Constantin López M.D. [address] [place] [phone] 03/11/2025 2:00 PM CDT Appointment Department of Vascular Medicine in [place], [place] [address] [place] [phone] Constantin López M.D. [address] [place] [phone] Discharge Disposition: Home or Self Care 03/15/2025 9:00 AM CDT Comprehensive Visit Department of Spine in [place], [place] [address] [place] [phone] Hebert Francis APRN, C.N.P., M.S.N. [address] [place] [phone] 03/15/2025 12:30 PM CDT Appointment Department of Laboratory Medicine and Pathology, [facility] in [place], [place] [address] [place] [phone] Harshad Perez M.D. [address] [place] [phone] 03/15/2025 2:30 PM CDT Office Visit Division of Hematology in [place], [place] [address] [place] [phone] Mely Hayden APRN, C.N.P., D.N.P., M.S. [address] [place] [phone] 03/15/2025 4:00 PM CDT Infusion Department of Oncology in [place], [place] [address] [place] [phone] Harshad Perez M.D. [address] [place] [phone] 03/16/2025 1:30 PM CDT Comprehensive Visit Division of Pulmonary Medicine in [place], [place] [address] [place] [phone] Morgan Peck M.D. [address] [place] [phone] 03/22/2025 11:10 AM CDT Appointment Department of Laboratory Medicine and Pathology, [facility] in [place], [place] [address] [place] [address] Harshad Perez M.D. [address] [place] [phone] 03/22/2025 1:00 PM CDT Infusion Department of Oncology in [place], [place] [address] [place] [phone] Harshad Perez M.D. [address] [place] [phone] 03/29/2025 9:15 AM CDT Appointment Division of Pulmonary Medicine in [place], [place] [address] [place] [phone] Harshad Perez M.D. [address] [place] [phone] Discharge Disposition: Home or Self Care 03/29/2025 10:30 AM CDT Appointment Department of Laboratory Medicine and Pathology, [facility] in [place], [place] [address] [place] [address] Harshad Perez M.D. [address] [place] [phone] 03/29/2025 11:15 AM CDT Nurse Only Division of Hematology in [place], [place] [address] [place] [address] Harshad Perez M.D. [address] [place] [phone] 03/29/2025 1:30 PM CDT Infusion Department of Oncology in [place], [place] [address] [place] [address] Harshad Perez M.D. [address] [place] [phone] 04/05/2025 10:10 AM CDT Appointment Department of Laboratory Medicine and Pathology, [facility] in [place], [place] [address] [place] [address] Harshad Perez M.D. [address] [place] [phone] 04/05/2025 12:00 PM CDT Infusion Department of Oncology in [place], [place] [address] [place] [address] Harshad Perez M.D. [address] [place] [phone] 04/12/2025 11:40 AM CDT Appointment Department of Laboratory Medicine and Pathology, [facility], in [place], [place] [address] [place] [address] Harshad Perez M.D. [address] [place] [phone] 04/12/2025 1:30 PM CDT Office Visit Division of Hematology in [place], [place] [address] [place] [address] Tr Hernandez M.D. [address] [place] [phone] 04/12/2025 3:30 PM CDT Infusion Department of Oncology in [place], [place] [address] [place] [address] Harshad Perez M.D. [address] [place] [phone] 04/19/2025 10:15 AM CDT Infusion Department of Oncology in [place], [place] [address] [place] [address] Harshad Perez M.D. [address] [place] [phone] 04/26/2025 10:10 AM CDT Appointment Department of Laboratory Medicine and Pathology, [facility] in [place], [place] [address] [place] [address] Harshad Perez M.D. [address] [place] [phone] 04/26/2025 11:00 AM CDT Nurse Only Division of Hematology in [place], [place] [address] [place] [phone] Harshad Perez M.D. [address] [place] [phone] 04/26/2025 12:00 PM CDT Infusion Department of Oncology in [place], [place] [address] [place] [address] Harshad Perez M.D. [address] [place] [phone] 04/26/2025 1:30 PM CDT Appointment Division of Pulmonary Medicine in [place], [place] [address] [place] [phone] Harshad Perez M.D. [address] [place] [phone] Discharge Disposition: Home or Self Care 05/03/2025 10:15 AM CDT Infusion Department of Oncology in [place], [place] [address] [place] [phone] Harshad Perez M.D. [address] [place] [phone] 05/10/2025 9:40 AM [employer] Appointment Department of Laboratory Medicine and Pathology, [facility] in [place], [place] [address] [place] [phone] Constantin López M.D. [address] [place] [phone] 05/10/2025 11:30 AM [employer] Office Visit Division of Hematology in [address] [phone] Mely Hayden, ANY, C.N.P., D.N.P., M.S. [address] [place] [phone] 05/10/2025 1:00 PM [employer] Infusion Department of Oncology in [place], [place] [address] [place] [phone] Constantin López M.D. [address] [place] [phone] 05/17/2025 10:15 AM [employer] Infusion Department of Oncology in [place], [place] [address] [place] [phone] Constantin López M.D. [address] [place] [phone] 05/24/2025 10:00 AM [employer] B[employer]ER Appointment Department of Laboratory Medicine and Pathology, [facility], in [place], [place] [address] [place] [phone] Constantin López M.D. [address] [place] [phone] 05/24/2025 10:45 AM [employer] Appointment Division of Pulmonary Medicine in [place], [place] [address] [place] [phone] Harshad Perez M.D. [address] [place] [phone] Discharge Disposition: Home or Self Care 05/24/2025 12:00 PM [employer] Infusion Department of Oncology in [place], [place] [address] [place] [phone] Constantin López M.D. [address] [place] [phone] 05/31/2025 10:00 AM [employer]IVE B[employer]ER Infusion Department of Oncology in [place], [place] [address] [place] [phone] Constantin López M.D. [address] [place] [phone] documented as of this encounter Results * (ABNORMAL) Monoclonal Protein [...] SDSC M-protein Isotype MS, 24 HR, U [place], monoclonal. ~The M-protein light chain is glycosylated. [...] developed and its performance characteristics determined by [facility] in a manner consistent with [...] M.D. LAB URINE ORDERABLES Fi nal Result [facility] [address] [place] [address] [facility] [address] [place] [address] [facility] [address] [place] [address] [place] [address] * ECG 12 Lead (01/27/2025 12:01 PM CDT) Ventricular Rate ECG/Min 84 BPM MUSE ME Interval 148 ms MUSE QRSD Interval 74 ms MUSE QT Interval 374 ms MUSE QTC Interval 441 ms MUSE P [place] 28 degrees MUSE R [place] -13 degrees MUSE T Wave [place] 30 degrees MUSE 01/27/2025 12:0 1 PM CDT 01/27/2025 12:15 PM CDT Impressions MUSE - 01/27/2025 12:15 PM CDT Normal sinus rhythm Normal ECG No previous ECGs available Reviewed by ROBYN Esquivel Narrative Procedure Note Harpal London Jr., M.D. - 01/27/2025 IMPRESSION: Normal sinus rhythm Normal ECG No previous ECGs available Reviewed by ROBYN Esquivel Harshad Perez M.D. ECG ORDERABLES Final R esult Performing Organization Address City/[facility]/ZIP Co de Phone Number MUSE NA * (ABNORMAL) Uric Acid (01/27/2025 11:20 AM CDT) Uric Acid, S 9.1(H) 3.7 - 8.0 mg/dL 01/27/2025 12:34 PM CDT DT Blood (Blood, Venous) 01/27/2025 11:20 AM CDT 01/27/2025 11:42 AM CDT Harshad Perez M.D. LAB BLOOD ADD-ON Final Result [facility] [address] [place] [address], [facility] [address] [place] [address] * HBc Total Ab, Serum (01/27/2025 11:20 AM CDT) HBc Total Ab, S Negative Negative 01/27/2025 4:02 PM CDT [facility] Blood (Blood, Venous) 01/27/2025 11:20 AM CDT 01/27/2025 3:02 PM CDT us Harshad Perez M.D. LAB MICROBIOLOGY - BLOO D ORDERABLES Final Result [facility] [address] [place] [address] [facility] [address] [place] [address] * HBs Antibody, Serum (01/27/2025 11:20 AM CDT) HBs Antibody, S Positive 4:02 PM CDT [facility] Comment: Patient is considered to have been exposed to HBV or immune from HBV vaccination. ----REFERENCE VALUE---- Unvaccinated: Negative Vaccinated: Positive HBs Antibody, Quantitative, S 201 mIU/mL 01/27/2025 4:02 PM CDT [facility] Comment: ----REFERENCE VALUE---- Unvaccinated: <8.5 mIU/mL Vaccinated: >=11.5 mIU/mL Blood (Blood, Venous) 01/27/2025 11:20 AM CDT 01/27/2025 3:02 PM CDT us Harshad Perez M.D. LAB MICROBIOLOGY - BLOO D ORDERABLES Final Result Performing Organization Address City/[facility]/ZIP Co de Phone Number [facility] [address] [place] [address] [facility] [address] [place] [address] * Hepatitis B Surface Antigen (01/27/2025 11:20 AM CDT) HBs Antigen, S Negative Negative 01/27/2025 4:02 PM CDT [facility] Blood (Blood, Venous) 01/27/2025 11:20 AM CDT 01/27/2025 3:02 PM CDT us Harshad Perez M.D. LAB MICROBIOLOGY - BLOO D ORDERABLES Final Result [facility] [address] [place] [address] [facility] [address] [place] [place] [address] * HIV-1/-2 Ag and Ab Screen, Plasma (01/27/2025 11:20 AM CDT) [facility] [address] HIV-1/-2 Ag and Ab Screen, P Negative Negative 01/27/2025 3:18 PM CDT [facility] Comment: Negative result does not rule out HIV infection. If exposure to HIV infection occurred <14 days ago, contact the laboratory to request addition of HIV-1/HIV-2 RNA detection, Plasma (HIP12). Blood (Blood, Venous) 01/27/2025 11:20 AM CDT 01/27/2025 2:05 PM CDT us Harshad Perez M.D. LAB MICROBIOLOGY - BLOO D ORDERABLES Final Result Performing Organization Address City/[facility] Co de Phone Number [facility] [address] [place] [address] [facility] [address] [place] [address] * Calcium, Total (01/27/2025 11:20 AM CDT) [facility] [address] Calcium, Total, S 8.8 8.8 - 10.2 mg/dL 01/27/2025 12:34 PM CDT DTL Blood (Blood, Venous) 01/27/2025 11:20 AM CDT 01/27/2025 11:42 AM CDT us Harshad Perez M.D. LAB BLOOD ADD-ON Final Result [facility] [address] [place] [address], [place] [facility] [facility] [address] [place] [address] * (ABNORMAL) Immunoglobulin Free Light Chains (01/27/2025 11:20 AM CDT) [place] Free Light Chain, S 452(H) 0.3300 - 1.94 mg/dL 01/27/2025 3:45 PM CDT [facility] Lambda Free Light Chain, S 0.2800(L) 0.5700 - 2.63 mg/dL 01/27/2025 3:29 PM CDT [facility] [place]/Lambda FLC Ratio >1000(H) 0.2600 - 1.65 01/27/2025 3:45 PM CDT [facility] Blood (Blood, Venous) 01/27/2025 11:20 AM CDT 01/27/2025 2:34 PM CDT Harshad Perez M.D. LAB BLOOD ADD-ON Final Result [facility] [address] [place] [address] [facility] [address] [place] [address] * Albumin (01/27/2025 11:20 AM CDT) Pathologist [facility] Albumin, S 3.5 3.5 - 5.0 g/dL 01/27/2025 12:34 PM CDT DT Blood (Blood, Venous) 01/27/2025 11:20 AM CDT 01/27/2025 11:42 AM CDT Harshad Perez M.D. LAB BLOOD ADD-ON Final Result [facility] [address] [place] [address], [place] [facility] [address] [place] [address] * (ABNORMAL) Quantitative M-protein Study (01/27/2025 11:20 AM CDT) Pathologist [facility] Immunoglobulin A (IgA), S 27(L) 61 - 356 mg/dL 01/27/2025 4:48 PM CDT SDS Immunoglobulin M (IgM), S <5(L) 37 - 286 mg/dL 01/27/2025 5:41 PM CDT [facility] Immunoglobulin G (IgG), S 3810(H) 767 - 1590 mg/dL 01/27/2025 4:48 PM CDT [facility] Therapeutic Antibody Administered? Unspecified 01/27/2025 3:58 PM CDT [facility] M-protein GK 3.423(H) g/dL 01/28/2025 12:42 PM CDT [facility] Glycosylation Yes(A) 01/28/2025 12:42 PM CDT [facility] Flag, M-protein Isotype Positive(A) Negative 01/28/2025 12:42 PM CDT [facility] QMPTS Interpretation IgG kappa 3.423 g/dL Glycosylated. Patients with glycosylated light chains are at higher risk for AL amyloidosis. C/W myeloma, smoldering myeloma. Suggest Monoclonal Protein Studies, 24 Hour, Urine. 01/28/2025 12:42 PM CDT [facility] Comment: ----ADDITIONAL INFORMATION---- The submitted sample was assayed by five separate immunopurifications for IgG, IgA, IgM, kappa and lambda. The result reflects the findings of either no monoclonal protein detected or those monoclonal immunoglobulins that were detected. This test was developed and its performance characteristics determined by [facility] in a manner consistent with CLIA requirements. This test has not been cleared or approved by the U.S. Food and Drug Administration. Blood (Blood, Venous) 01/27/2025 11:20 AM CDT 01/27/2025 3:08 PM CDT Narrative [facility] - 01/28/2025 12:42 PM CDT Specimen Information: Specimen ID: [id number] Specimen Type: Blood Specimen Collection Start Date: 01/27/2025 11:20 AM Specimen Received Date: 01/27/2025 3:08 PM Specimen ID: [id number] Specimen Type: Blood Specimen Collection Start Date: 01/27/2025 11:20 AM Specimen Received Date: 01/27/2025 3:58 PM us Harshad Perez M.D. LAB BLOOD ADD-ON Final Result [facility] [address] [place] [address] [facility] [address] [place] [address] [facility] [address] [place] [address] [place] [address] * ALT (Alanine Aminotransferase) (01/27/2025 11:20 AM CDT) Alanine Aminotransferase (ALT), S 30 7 - 55 U/L 01/27/2025 12:34 PM CDT DTL Blood (Blood, Venous) 01/27/2025 11:20 AM CDT 01/27/2025 11:42 AM CDT us Harshad Perez M.D. LAB BLOOD ADD-ON Final Result [facility] [address] [place] [address] * AST (Aspartate Aminotransferase) (01/27/2025 11:20 AM CDT) Aspartate Aminotransferase (AST), S 34 8 - 48 U/L 01/27/2025 12:34 PM CDT DTL Blood (Blood, Venous) 01/27/2025 11:20 AM CDT 01/27/2025 11:42 AM CDT us Harshad Perez M.D. LAB BLOOD ADD-ON Final Result [facility] [address] [place] [address], [place] [address] * Alkaline Phosphatase (01/27/2025 11:20 AM CDT) Alkaline Phosphatase, S 73 40 - 129 U/L 01/27/2025 12:34 PM CDT DTL Blood (Blood, Venous) 01/27/2025 11:20 AM CDT 01/27/2025 11:42 AM CDT Harshad Perez M.D. LAB BLOOD ADD-ON Final Result Performing Organization Address [facility] Co de Phone Number [facility] [address] [place] [address], [facility] [address] * Plasma Cell Assessment (01/27/2025 11:20 AM CDT) Blood Plasma Cell Light Chain Monotypic kappa plasma cells 01/28/2025 10:38 AM CDT DTL # Monotypic PCs per 150,000 events 257 events 01/28/2025 10:38 AM CDT DTL PC Event Interpretation High number of circulating monotypic plasma cells. Reviewed by: Craig Barrow D.O., M.S. 01/28/2025 10:38 AM CDT DT Comment: ----ADDITIONAL INFORMATION---- Plasma cell analysis was performed with antibodies to the following antigens: CD19, CD38, CD45, CD138 and kappa and lambda cytoplasmic immunoglobulin light chains. This test was developed using an analyte specific reagent. Its performance characteristics were determined by [facility] in a manner consistent with CLIA requirements. This test has not been cleared or approved by the U.S. Food and Drug Administration. Blood (Blood, Venous) 01/27/2025 11:20 AM CDT 01/27/2025 11:46 AM CDT us Harshad Perez M.D. LAB BLOOD NON ADD-ON Fi nal Result Performing Organization Address City/[facility]/ZIP Co de Phone Number [id number] [place] [address] [address] * Bilirubin, Total (01/27/2025 11:20 AM CDT) Bilirubin, Total, S 0.7 0.0 - 1.2 mg/dL 01/27/2025 12:34 PM CDT DTL Blood (Blood, Venous) 01/27/2025 11:20 AM CDT 01/27/2025 11:42 AM CDT us Harshad Perez M.D. LAB BLOOD ADD-ON Final Result [facility] 200 [place] [address], [facility] [address] [place] [address] * Potassium (01/27/2025 11:20 AM CDT) Potassium, S 4.5 3.6 - 5.2 mmol/L 01/27/2025 12:34 PM CDT DTL Blood (Blood, Venous) 01/27/2025 11:20 AM CDT 01/27/2025 11:42 AM CDT Harshad Perez M.D. LAB BLOOD ADD-ON Final Result [facility] [address] [place] [address], [facility] [address] [place] [address] * (ABNORMAL) Creatinine with Estimated GFR (01/27/2025 11:20 AM CDT) Creatinine 1.44(H) 0.74 - 1.35 mg/dL 01/27/2025 12:34 PM CDT DTL Estimated GFR (eGFR) 55(L) >=60 mL/min/BSA 01/27/2025 12:34 PM CDT DTL Comment: Estimated GFR calculated using the 2020 CKD_EPI creatinine equation. Blood (Blood, Venous) 01/27/2025 11:20 AM CDT 01/27/2025 11:42 AM CDT Harshad Perez M.D. LAB BLOOD ADD-ON Final Result [facility] [address] [place] [address], [facility] DTL [facility] [address] [place] [address] * (ABNORMAL) CBC with Differential, Blood (01/27/2025 [...] 11:20 AM CDT 01/27/2025 11:45 AM CDT Harshad Perez M.D. LAB BLOOD ADD-ON Final Result Performing Organization Address [facility] de Phone Number [facility] [address] [place] [address], [facility] [address] [place] [address] [facility] [address] [place] [address] * (ABNORMAL) NT-Pro B-Type Natriuretic Peptide (BNP) [...] BLOOD ADD-ON Final Result Performing Organization Address [facility] Co de Phone Number [facility] [address] [place] [address], [facility] [address] [place] [address] * (ABNORMAL) Troponin T, 5th Generation (01/27/2025 11:20 AM CDT) Troponin T, 5th gen 17(H) <=15 ng/L 01/27/2025 12:52 PM CDT DTL Blood (Blood, Venous) 01/27/2025 11:20 AM CDT 01/27/2025 11:42 AM CDT Harshad Perez M.D. LAB BLOOD ADD-ON Final Result [facility] [address] [place] [address], [facility] [address] [place] [address] documented in this encounter Visit Diagnoses Diagnosis Multiple Myeloma Not Having Achieved Remission (HCC)- Primary Multiple Myeloma Not Having Achieved Remission (HCC) Multiple Myeloma Not Having Achieved Remission (HCC) documented in this encounter Additional Health Concerns Infection Onset Date Last Indicated Resolved Time Protective Environment 01/27/2025 01/27/2025 documented as of this encounter
--- OUTSIDE RECORDS SUMMARY | 2025-03-02 17:40 | XMS_ITS | Encounter Summary ---
Author Organization [facility] Address [address] [place] [address] Care Team Providers Care Furniture Finisher Helper Name Role Phone Unavailable Primary Care Provider Unavailabl e Reason for Visit * Reason Onset Date Comments OSM - Outside Materials 01/25/2025 Encounter Details Date Type Department Care Team (Latest Contact Info) Description 01/25/2025 Clinical Communication Antony kunz [facility] Clinical Regeneration in [place], [place] [address] [place] [address] Harshad Perez M.D. [address] [place] [address] OSM - Outside Materials Social History Tobacco Use Types Packs/Day Years [...] things needed for daily living? No 01/27/2025 [facility] Utilities Answer Date Recorded In the past 12 months has th e electric, gas, oil, or water company threatened to shut off services in your home? No 01/27/2025 Housing Stability Answer Date Recorded What is your living situation today? 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 [address] [place] [phone] 03/08/2025 8:45 AM CDT Infusion Department of Oncology in [place], [place] [address] [place] [address] Constantin López M.D. [address] [place] [phone] 03/08/2025 10:30 AM CDT Comprehensive Visit Department of Vascular Medicine in [place], [place] [address] [place] [address] Vic Flores M.D. [address] [place] [address] 03/11/2025 12:30 PM CDT Diagnostic Division of Pulmonary Medicine in [place], [place] [address] [place] [phone] Constantin López M.D. [address] [place] [address] 03/11/2025 2:00 PM CDT Appointment Department of Vascular Medicine in [place], [place] [address] [place] [address] Constantin López M.D. [address] [place] [address] Discharge Disposition: Home or Self Care 03/15/2025 9:00 AM CDT Comprehensive Visit Department of Spine in [place], [place] [address] [place] [phone] Hebert Francis APRN, C.N.P., M.S.N. [address] [place] [phone] 03/15/2025 12:30 PM CDT Appointment Department of Laboratory Medicine and Pathology, [facility], in [place], [place] [address] [place] [phone] Harshad Perez M.D. [address] [place] [address] 03/15/2025 2:30 PM CDT Office Visit Division of Hematology in [address] [address] Mely Hayden, ANY, C.N.P., D.N.P., M.S. [address] [place] [address] 03/15/2025 4:00 PM CDT Infusion Department of Oncology in [place], [place] [address] [place] [phone] Harshad Perez M.D. [address] [place] [address] 03/16/2025 1:30 PM CDT Comprehensive Visit Division of Pulmonary Medicine in [place], [place] [address] [place] [phone] Morgan Peck M.D. [address] [place] [address] 03/22/2025 11:10 AM CDT Appointment Department of Laboratory Medicine and Pathology, [facility] in [place], [place] [address] [place] [address] Harshad Perez M.D. [address] [place] [address] 03/22/2025 1:00 PM CDT Infusion Department of Oncology in [place], [place] [address] [place] [address] Harshad Perez M.D. [address] [place] [address] 03/29/2025 9:15 AM CDT Appointment Division of Pulmonary Medicine in [place], [place] [address] [place] [address] Harshad Perez M.D. [address] [place] [phone] Discharge Disposition: Home or Self Care 03/29/2025 10:30 AM CDT Appointment Department of Laboratory Medicine and Pathology, [facility], in [place], [place] [address] [place] [address] Harshad Perez M.D. [address] [place] [address] 03/29/2025 11:15 AM CDT Nurse Only Division of Hematology in [place], [place] [address] [place] [address] Harshad Perez M.D. [address] [place] [address] 03/29/2025 1:30 PM CDT Infusion Department of Oncology in [place], [place] [address] [place] [address] Harshad Perez M.D. [address] [place] [address] 04/05/2025 10:10 AM CDT Appointment Department of Laboratory Medicine and Pathology, [facility] in [place], [place] [address] [place] [phone] Harshad Perez M.D. [address] [place] [address] 04/05/2025 12:00 PM CDT Infusion Department of Oncology in [place], [place] [address] [place] [phone] Harshad Perez M.D. [address] [place] [address] 04/12/2025 11:40 AM CDT Appointment Department of Laboratory Medicine and Pathology, [facility] in [place], [place] [address] [place] [phone] Harshad Perez M.D. [address] [place] [address] 04/12/2025 1:30 PM CDT Office Visit Division of Hematology in [address] [address] Tr Hernandez M.D. [address] [place] [address] 04/12/2025 3:30 PM CDT Infusion Department of Oncology in [place], [place] [address] [place] [address] Harshad Perez M.D. [address] [place] [address] 04/19/2025 10:15 AM CDT Infusion Department of Oncology in [place], [place] [address] [place] [phone] Harshad Perez M.D. [address] [place] [address] 04/26/2025 10:10 AM CDT Appointment Department of Laboratory Medicine and Pathology, [facility] in [place], [place] [address] [place] [address] Harshad Perez M.D. [address] [place] [address] 04/26/2025 11:00 AM CDT Nurse Only Division of Hematology in [place], [place] [address] [place] [address] Harshad Perez M.D. [address] [place] [address] 04/26/2025 12:00 PM CDT Infusion Department of Oncology in [place], [place] [address] [place] [address] Harshad Perez M.D. [address] [place] [address] 04/26/2025 1:30 PM CDT Appointment Division of Pulmonary Medicine in [place], [place] [address] [place] [phone] Harshad Perez M.D. [address] [place] [address] Discharge Disposition: Home or Self Care 05/03/2025 10:15 AM CDT Infusion Department of Oncology in [place], [place] [address] [place] [address] Harshad Perez M.D. 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 [address] [place] [address] 05/10/2025 11:30 AM HIGH SCHOOL SCIENCE TEACHER Office Visit Division of Hematology in [place], [place] [address] [place] [phone] Mely Hayden, ANY, C.N.P., D.N.P., M.S. [address] [place] [address] 05/10/2025 1:00 PM HIGH SCHOOL SCIENCE TEACHER Infusion Department of Oncology in [place], [place] [address] [place] [phone] Constantin López M.D. [address] [place] [address] 05/17/2025 10:15 AM HIGH SCHOOL SCIENCE TEACHER Infusion Department of Oncology in [place], [place] [address] [place] [address] Constantin López M.D. [address] [place] [address] 05/24/2025 10:00 AM HIGH SCHOOL SCIENCE TEACHER Appointment Department of Laboratory Medicine and Pathology, [facility], in [place], [place] [address] [place] [phone] Constantin López M.D. [address] [place] [phone] 05/24/2025 10:45 AM HIGH SCHOOL SCIENCE TEACHER Appointment Division of Pulmonary Medicine in [place], [place] [address] [place] [phone] Harshad Perez M.D. [address] [place] [address] Discharge Disposition: Home or Self Care 05/24/2025 12:00 PM HIGH SCHOOL SCIENCE TEACHER Infusion Department of Oncology in [place], [place] [address] [place] [phone] Constantin López M.D. [address] [place] [address] 05/31/2025 10:00 AM HIGH SCHOOL SCIENCE TEACHER Infusion Department of Oncology in [place], [place] [address] [place] [address] Constantin López M.D. [address] [place] [address] documented as of this encounter Visit Diagnoses Not on filedocumented in this encounter Additional Health Concerns Infection Onset Date Last Indicated Resolved Time Protective Environment 01/27/2025 01/27/2025 documented as of this encounter
--- OUTSIDE RECORDS SUMMARY | 2025-03-02 17:40 | XMS_ITS | Encounter Summary ---
Author Organization [facility] Address [address] [place] [address] Care Team Providers Care Slot Floor Person Name Role Phone Unavailable Primary Care Provider Unavailabl e Encounter Details Date Type Department Care Team (Late st Contact Info) Description 01/26/2025 Orders Only Division of Hematology in [place], [place] [address] [place] [address] Harshad Perez M.D. [address] [place] [phone] Multiple Myeloma Not Having Achieved Remission (HCC) [...] things needed for daily living? No 01/27/2025 [facility] Utilities Answer Date Recorded In the past 12 months has [facility] electric, gas, oil, or water company threatened to shut off services in your home? No 01/27/2025 Housing Stability Answer Date Recorded What is your living situation today? 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 [address] [place] [address] 03/08/2025 8:45 AM CDT Infusion Department of Oncology in [place], [place] [address] [place] [phone] Constantin López M.D. [address] [place] [address] 03/08/2025 10:30 AM CDT Comprehensive Visit Department of Vascular Medicine in [place], [place] [address] [place] [phone] Vic Flores M.D. [address] [place] [address] 03/11/2025 12:30 PM CDT Diagnostic Division of Pulmonary Medicine in [place], [place] [address] [place] [phone] Constantin López M.D. [address] [place] [phone] 03/11/2025 2:00 PM CDT Appointment Department of Vascular Medicine in [place], [place] [address] [place] [phone] Constantin López M.D. [address] [place] [phone] Discharge Disposition: Home or Self Care 03/15/2025 9:00 AM CDT Comprehensive Visit Department of Spine in [place], [place] [address] [place] [address] Hebert Francis APRN, C.N.P., M.S.N. [address] [place] [phone] 03/15/2025 12:30 PM CDT Appointment Department of Laboratory Medicine and Pathology, [facility] in [place], [place] [address] [place] [address] Harshad Perez M.D. [address] [place] [address] 03/15/2025 2:30 PM CDT Office Visit Division of Hematology in [place], [place] [address] [place] [phone] Mely Hayden APRN, C.N.P., D.N.P., M.S. [address] [place] [address] 03/15/2025 4:00 PM CDT Infusion Department of Oncology in [place], [place] [address] [place] [address] Harshad Perez M.D. [address] [place] [address] 03/16/2025 1:30 PM CDT Comprehensive Visit Division of Pulmonary Medicine in [place], [place] [address] [place] [phone] Morgan Peck M.D. [address] [place] [address] 03/22/2025 11:10 AM CDT Appointment Department of Laboratory Medicine and Pathology, [facility] in [place], [place] [address] [place] [address] Harshad Perez M.D. [address] [place] [address] 03/22/2025 1:00 PM CDT Infusion Department of Oncology in [place], [place] [address] [place] [address] Harshad Perez M.D. [address] [place] [address] 03/29/2025 9:15 AM CDT Appointment Division of Pulmonary Medicine in [place], [place] [address] [place] [phone] Harshad Perez M.D. [address] [place] [address] Discharge Disposition: Home or Self Care 03/29/2025 10:30 AM CDT Appointment Department of Laboratory Medicine and Pathology, [facility], in [place], [place] [address] [place] [address] Harshad Perez M.D. [address] [place] [address] 03/29/2025 11:15 AM CDT Nurse Only Division of Hematology in [place], [place] [address] [place] [phone] Harshad Perez M.D. [address] [place] [address] 03/29/2025 1:30 PM CDT Infusion Department of Oncology in [place], [place] [address] [place] [phone] Harshad Perez M.D. [address] [place] [address] 04/05/2025 10:10 AM CDT Appointment Department of Laboratory Medicine and Pathology, [facility] in [place], [place] [address] [place] [address] Harshad Perez M.D. [address] [place] [address] 04/05/2025 12:00 PM CDT Infusion Department of Oncology in [place], [place] [address] [place] [phone] Harshad Perez M.D. [address] [place] [address] 04/12/2025 11:40 AM CDT Appointment Department of Laboratory Medicine and Pathology, [facility] in [place], [place] [address] [place] [phone] Harshad Perez M.D. [address] [place] [phone] 04/12/2025 1:30 PM CDT Office Visit Division of Hematology in [address] [address] Tr Hernandez M.D. [address] [place] [address] 04/12/2025 3:30 PM CDT Infusion Department of Oncology in [place], [place] [address] [place] [address] Harshad Perez M.D. [address] [place] [address] 04/19/2025 10:15 AM CDT Infusion Department of Oncology in [place], [place] [address] [place] [phone] Harshad Perez M.D. [address] [place] [address] 04/26/2025 10:10 AM CDT Appointment Department of Laboratory Medicine and Pathology, [facility] in [place], [place] [address] [place] [address] Harshad Perez M.D. [address] [place] [address] 04/26/2025 11:00 AM CDT Nurse Only Division of Hematology in [place], [place] [address] [place] [phone] Harshad Perez M.D. [address] [place] [address] 04/26/2025 12:00 PM CDT Infusion Department of Oncology in [place], [place] [address] [place] [address] Harshad Perez M.D. [address] [place] [address] 04/26/2025 1:30 PM CDT Appointment Division of Pulmonary Medicine in [place], [place] [address] [place] [phone] Harshad Perez M.D. [address] [place] [phone] Discharge Disposition: Home or Self Care 05/03/2025 10:15 AM CDT Infusion Department of Oncology in [place], [place] [address] [place] [phone] Harshad Perez M.D. [address] [place] [address] 05/10/2025 9:40 AM CHIEF ELECTRICIAN Appointment Department of Laboratory Medicine and Pathology, [facility] in [place], [place] [address] [place] [address] Constantin López M.D. [address] [place] [phone] 05/10/2025 11:30 AM CHIEF ELECTRICIAN Office Visit Division of Hematology in [place], [place] [address] [place] [address] Mely Haydne, ANY, C.N.P., D.N.P., M.S. [address] [place] [address] 05/10/2025 1:00 PM CHIEF ELECTRICIAN Infusion Department of Oncology in [place], [place] [address] [place] [address] Constantin López M.D. [address] [place] [address] 05/17/2025 10:15 AM CHIEF ELECTRICIAN Infusion Department of Oncology in [place], [place] [address] [place] [address] Constantin López M.D. [address] [place] [address] 05/24/2025 10:00 AM CHIEF ELECTRICIAN Appointment Department of Laboratory Medicine and Pathology, [facility], in [place], [place] [address] [place] [address] Constantin López M.D. [address] [place] [phone] 05/24/2025 10:45 AM CHIEF ELECTRICIAN Appointment Division of Pulmonary Medicine in [place], [place] [address] [place] [address] Harshad Perez M.D. [address] [place] [phone] Discharge Disposition: Home or Self Care 05/24/2025 12:00 PM CHIEF ELECTRICIAN Infusion Department of Oncology in [place], [place] [address] [place] [phone] Constantin López M.D. [address] [place] [address] 05/31/2025 10:00 AM CHIEF ELECTRICIAN Infusion Department of Oncology in [place], [place] [address] [place] [address] Constantin López M.D. [address] [place] [phone] documented as of this encounter Results * Interpretation of Outside [...] nodes may bereactive. * Deauville score: 5 Harshad Perez M.D. [facility] PROCEDURES Edite d Result - Final documented in this encounter Visit Diagnoses Diagnosis Multiple Myeloma Not Having Achieved Remission (HCC)- Primary Multiple Myeloma Not Having Achieved Remission (HCC) documented in this encounter
--- OUTSIDE RECORDS SUMMARY | 2025-03-02 17:40 | XMS_ITS | Encounter Summary ---
Author Organization [facility] Address [address] [place] [address] Care Team Providers Care Data Processing Clerk Name Role Phone Unavailable Primary Care Provider Unavailabl e Reason for Visit * Reason Onset Date Comments New Patient 01/26/2025 Multiple Myeloma 01/26/2025 Encounter Details Date Type Department Care Team (Latest Contact Info) Description 01/26/2025 Clinical Communication Division of Hematology in [place], [place] [address] [place] [address] Claudia Morton, R.N. [address] [place] [address] New Patient; Multiple Myeloma Social History Tobacco Use Types Packs/Day Years [...] your living situation today? 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 - 01/26/2025 11:38 AM CDT Summary created 01/26/2025. Additional information may be available subsequent to this summary. Information Source: Summary compiled from review of Care Everywhere. Pertinent documents have been bookmarked. Oncology history has not been created/updated. Med AA was not contacted to acquire additional OSM. The patient has not been contacted. All pending MD evaluation. Joey Laird is a 60 y.o. male who is scheduled to meet with Dr. Perez on 01/28/2025 for consultation regarding possible Multiple Myeloma, additional testing is needed. Goals of meeting: - Review of diagnostic testing and recommendations for additional testing, if needed - Recommendations for a plan of care, including supportive care medications and clinical trial participation - Arrange to discuss future treatment options, including auto stem cell transplant and alternativesto transplant Referral source: Self: PET CT Skull to mid thigh, innumerable tiny and some large lytic and osseous lesions. I have other symptoms of multiple myeloma. Most troublesome is a sensitive and very sore left foot. My right foot has been ok but is now showing signs similar to left foot. UGASHIK: Date of Diagnosis: pending MD evaluation and additional testing Presenting symptoms: Symptoms started near July 2024 of epistaxis, weight loss, foamy urine, hip/leg pain, LE swelling with redness and hypersensitivity. Labs: Date: January 2025 Hgb: 11.8 g/dL Plts: 364K Creatinine: 1.46 mg/dL Calcium: 8.8 mg/dL Total Protein: 9.4 Albumin: 3.3 g/dL CRP 53.5 LDH: B2M: HBV: SPEP: M-spike: 1.95 g/dL Immunofixation: IgG Van Immunoglobulins: Ig.86 mg/dL; IgA: 33.8 mg/dL; IgM: 10.21 mg/dL Free light chains (mg/dL): kappa: ; lambda: ; Van:Lambda Ratio: UPEP: Urine Random: total protein: 12 mg/dL; urine M-spike: 1.11 mg, Immunofixation: Monoclonal protein detected in beta-gamma region, confirmed by immunofixation. IgG kappa with probable free kappa light chains. Pathology: Bone Marrow: FISH: Imagin01/04/2025 US, LE, Impression: No deep venous thrombosis detected in the left lower extremity. 01/17/2025 CT Chest/abd/pelvis, Impression: Diffusely abnormal osseous structures with innumerable lytic lesions present, new from CT 2012. Pathologic fracture and centrally involving the superior endplate of L3. No adenopathy in the chest, abdomen or pelvis. Intrahepatic cysts are present measuring up to 1.4 cm. 01/20/2025 PET/CT, Impression: 1. Diffuse intense FDG uptake [...] versus a response to systemic inflammatory process Clinical trial consideration - Myeloma Trials: NDMM - SmartPhrase: newlydiagnosed Pragmatic Trial: Eligible within cycle 1-3 if induction with DRD, VRD or D-VRD Post-Transplant Maintenance Trials SmartPhrase: Maintenance Promise Study for relatives - The goal of the PROMISE Study is to test at-risk individuals for early warning signs of multiple myeloma. Who can enroll: 1. Americans, and/or 2. People of Any Race Who Have a Parent, Sibling, or Child with: Multiple myeloma, another blood cancer, OR one of these related conditions: Monoclonal Gammopathy of Undetermined Significance (MGUS) Smoldering Multiple Myeloma Waldenstr??m Macroglobulinemia Enrolling individuals who are 18 years of age or older and have a strong family history of blood cancer (2 or more first- and second-degree relatives). For any questions about this research study please contact the PROMISE study team Email: [email or web address]. Website: [email or web address] Claudia Morton RN BSN [facility] Hematology Nurse Navigator documented in this encounter Plan of Treatment Upcoming Encounters Date Type Department Care Team (Latest Contact Info) Description 03/08/2025 8:00 AM CDT Appointment Department of Laboratory Medicine and Pathology, [facility] in [place], [place] [address] [place] [phone] Constantin López M.D. [address] [place] [phone] 03/08/2025 8:45 AM CDT Infusion Department of Oncology in [place], [place] [address] [place] [phone] Constantin López M.D. [address] [place] [phone] 03/08/2025 10:30 AM CDT Comprehensive Visit Department of Vascular Medicine in [address] [address] Vic Flores M.D. [address] [place] [phone] 03/11/2025 12:30 PM CDT Diagnostic Division of Pulmonary Medicine in [address] [phone] Constantin López M.D. [address] [place] [phone] 03/11/2025 2:00 PM CDT Appointment Department of Vascular Medicine in [place], [place] [address] [place] [phone] Constantin López M.D. [address] [place] [phone] Discharge Disposition: Home or Self Care 03/15/2025 9:00 AM CDT Comprehensive Visit Department of Spine in [place], [place] [address] [place] [phone] Hebert Francis APRN, C.N.P., M.S.N. [address] [place] [phone] 03/15/2025 12:30 PM CDT Appointment Department of Laboratory Medicine and Pathology, [facility] in [place], [place] [address] [place] [phone] Harshad Perez M.D. [address] [place] [phone] 03/15/2025 2:30 PM CDT Office Visit Division of Hematology in [place], [place] [address] [place] [phone] Mely Hayden APRN, C.N.P., D.N.P., M.S. [address] [place] [phone] 03/15/2025 4:00 PM CDT Infusion Department of Oncology in [place], [place] [address] [place] [phone] Harshad Perez M.D. [address] [place] [phone] 03/16/2025 1:30 PM CDT Comprehensive Visit Division of Pulmonary Medicine in [place], [place] [address] [place] [address] Morgan Peck M.D. [address] [place] [phone] 03/22/2025 11:10 AM CDT Appointment Department of Laboratory Medicine and Pathology, [facility] in [place], [place] [address] [place] [address] Harshad Perez M.D. [address] [place] [phone] 03/22/2025 1:00 PM CDT Infusion Department of Oncology in [place], [place] [address] [place] [address] Harshad Perez M.D. [address] [place] [phone] 03/29/2025 9:15 AM CDT Appointment Division of Pulmonary Medicine in [place], [place] [address] [place] [phone] Harshad Perez M.D. [address] [place] [phone] Discharge Disposition: Home or Self Care 03/29/2025 10:30 AM CDT Appointment Department of Laboratory Medicine and Pathology, [facility], in [place], [place] [address] [place] [address] Harshad Perez M.D. [address] [place] [phone] 03/29/2025 11:15 AM CDT Nurse Only Division of Hematology in [place], [place] [address] [place] [phone] Harshad Perez M.D. [address] [place] [phone] 03/29/2025 1:30 PM CDT Infusion Department of Oncology in [place], [place] [address] [place] [address] Harshad Perez M.D. [address] [place] [phone] 04/05/2025 10:10 AM CDT Appointment Department of Laboratory Medicine and Pathology, [facility] in [place], [place] [address] [place] [address] Harshad Perez M.D. [address] [place] [phone] 04/05/2025 12:00 PM CDT Infusion Department of Oncology in [place], [place] [address] [place] [address] Harshad Perez M.D. [address] [place] [phone] 04/12/2025 11:40 AM CDT Appointment Department of Laboratory Medicine and Pathology, [facility] in [place], [place] [address] [place] [address] Harshad Perez M.D. [address] [place] [phone] 04/12/2025 1:30 PM CDT Office Visit Division of Hematology in [place], [place] [address] [place] [phone] Tr Hernandez M.D. [address] [place] [phone] 04/12/2025 3:30 PM CDT Infusion Department of Oncology in [place], [place] [address] [place] [address] Harshad Perez M.D. [address] [place] [phone] 04/19/2025 10:15 AM CDT Infusion Department of Oncology in [place], [place] [address] [place] [phone] Harshad Perez M.D. [address] [place] [phone] 04/26/2025 10:10 AM CDT Appointment Department of Laboratory Medicine and Pathology, [facility] in [place], [place] [address] [place] [phone] Harshad Perez M.D. [address] [place] [phone] 04/26/2025 11:00 AM CDT Nurse Only Division of Hematology in [place], [place] [address] [place] [phone] Harshad Perez M.D. [address] [place] [phone] 04/26/2025 12:00 PM CDT Infusion Department of Oncology in [place], [place] [address] [place] [phone] Harshad Perez M.D. [address] [place] [phone] 04/26/2025 1:30 PM CDT Appointment Division of Pulmonary Medicine in [place], [place] [address] [place] [phone] Harshad Perez M.D. [address] [place] [phone] Discharge Disposition: Home or Self Care 05/03/2025 10:15 AM CDT Infusion Department of Oncology in [place], [place] [address] [place] [phone] Harshad Perez M.D. [address] [place] [phone] 05/10/2025 9:40 AM WATER QUALITY TECHNICIAN Appointment Department of Laboratory Medicine and Pathology, [facility] in [place], [place] [address] [place] [address] Constantin López M.D. [address] [place] [phone] 05/10/2025 11:30 AM WATER QUALITY TECHNICIAN Office Visit Division of Hematology in [place], [place] [address] [place] [address] Mely Hayden, ANY, C.N.P., D.N.P., M.S. [address] [place] [phone] 05/10/2025 1:00 PM WATER QUALITY TECHNICIAN Infusion Department of Oncology in [place], [place] [address] [place] [address] Constantin López M.D. [address] [place] [phone] 05/17/2025 10:15 AM WATER QUALITY TECHNICIAN Infusion Department of Oncology in [place], [place] [address] [place] [address] Constantin López M.D. [address] [place] [phone] 05/24/2025 10:00 AM WATER QUALITY TECHNICIAN Appointment Department of Laboratory Medicine and Pathology, [facility], in [place], [place] [address] [place] [address] Constantin López M.D. [address] [place] [phone] 05/24/2025 10:45 AM WATER QUALITY TECHNICIAN Appointment Division of Pulmonary Medicine in [place], [place] [address] [place] [phone] Harshad Perez M.D. [address] [place] [phone] Discharge Disposition: Home or Self Care 05/24/2025 12:00 PM WATER QUALITY TECHNICIAN Infusion Department of Oncology in [place], [place] [address] [place] [phone] Constantin López M.D. [address] [place] [phone] 05/31/2025 10:00 AM WATER QUALITY TECHNICIAN Infusion Department of Oncology in [place], [place] [address] [place] [phone] Constantin López M.D. [address] [place] [phone] documented as of this encounter Visit Diagnoses Not on filedocumented in this encounter Additional Health Concerns Infection Onset Date Last Indicated Resolved Time Protective Environment 01/27/2025 01/27/2025 documented as of this encounter
--- OUTSIDE RECORDS SUMMARY | 2025-03-02 17:40 | XMS_ITS | Encounter Summary ---
Author Organization [facility] Address [address] [place] [address] Care Team Providers Care Acid Cutter Name Role Phone Unavailable Primary Care Provider Unavailabl e Encounter Details Date Type Department Care Team (Late st Contact Info) Description 02/11/2025 Orders Only Division of Hematology in [place], [place] [address] [place] [address] Constantin óLpez M.D. [address] [place] [address] Thoracic Aortic Aneurysm Without Rupture Unspecified (Primary Dx); Multiple Myeloma Not Having Achieved Remission (HCC); Fracture Vertebra Compress Malignant Initial Social History Tobacco Use Types Packs/Day Years [...] No 01/27/2025 [facility] Utilities Answer Date Recorded In the past 12 months has th e electric, gas, oil, or water company threatened to shut off services in your home? No 01/27/2025 Housing Stability Answer Date Recorded What is your living situation today? 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 [address] [place] [phone] 03/08/2025 8:45 AM CDT Infusion Department of Oncology in [place], [place] [address] [place] [address] Constantin López M.D. [address] [place] [phone] 03/08/2025 10:30 AM CDT Comprehensive Visit Department of Vascular Medicine in [place], [place] [address] [place] [address] Vic Flores M.D. [address] [place] [address] 03/11/2025 12:30 PM CDT Diagnostic Division of Pulmonary Medicine in [place], [place] [address] [place] [phone] Constantin López M.D. [address] [place] [address] 03/11/2025 2:00 PM CDT Appointment Department of Vascular Medicine in [place], [place] [address] [place] [phone] Constantin López M.D. [address] [place] [phone] Discharge Disposition: Home or Self Care 03/15/2025 9:00 AM CDT Comprehensive Visit Department of Spine in [place], [place] [address] [place] [phone] Hebert Francis APRN, C.N.P., M.S.N. [address] [place] [phone] 03/15/2025 12:30 PM CDT Appointment Department of Laboratory Medicine and Pathology, [facility] in [place], [place] [address] [place] [phone] Harshad Perez M.D. [address] [place] [address] 03/15/2025 2:30 PM CDT Office Visit Division of Hematology in [place], [place] [address] [place] [phone] Mely Hayden APRN, C.N.P., D.N.P., M.S. [address] [place] [address] 03/15/2025 4:00 PM CDT Infusion Department of Oncology in [place], [place] [address] [place] [address] Harshad Perez M.D. [address] [place] [address] 03/16/2025 1:30 PM CDT Comprehensive Visit Division of Pulmonary Medicine in [place], [place] [address] [place] [address] Morgan Peck M.D. [address] [place] [address] 03/22/2025 11:10 AM CDT Appointment Department of Laboratory Medicine and Pathology, [facility] in [place], [place] [address] [place] [address] Harshad Perez M.D. [address] [place] [address] 03/22/2025 1:00 PM CDT Infusion Department of Oncology in [place], [place] [address] [place] [phone] Harshad Perez M.D. [address] [place] [phone] 03/29/2025 9:15 AM CDT Appointment Division of Pulmonary Medicine in [place], [place] [address] [place] [phone] Harshad Perez M.D. [address] [place] [address] Discharge Disposition: Home or Self Care 03/29/2025 10:30 AM CDT Appointment Department of Laboratory Medicine and Pathology, [facility], in [place], [place] [address] [place] [address] Harshad Perez M.D. [address] [place] [address] 03/29/2025 11:15 AM CDT Nurse Only Division of Hematology in [place], [place] [address] [place] [address] Harshad Perez M.D. [address] [place] [address] 03/29/2025 1:30 PM CDT Infusion Department of Oncology in [place], [place] [address] [place] [address] Harshad Perez M.D. [address] [place] [address] 04/05/2025 10:10 AM CDT Appointment Department of Laboratory Medicine and Pathology, [facility] in [place], [place] [address] [place] [address] Harshad Perez M.D. [address] [place] [address] 04/05/2025 12:00 PM CDT Infusion Department of Oncology in [place], [place] [address] [place] [address] Harshad Perez M.D. [address] [place] [address] 04/12/2025 11:40 AM CDT Appointment Department of Laboratory Medicine and Pathology, [facility] in [place], [place] [address] [place] [address] Harshad Perez M.D. [address] [place] [address] 04/12/2025 1:30 PM CDT Office Visit Division of Hematology in [place], [place] [address] [place] [address] Tr Hernandez M.D. [address] [place] [phone] 04/12/2025 3:30 PM CDT Infusion Department of Oncology in [place], [place] [address] [place] [address] Harshad Perez M.D. [address] [place] [address] 04/19/2025 10:15 AM CDT Infusion Department of Oncology in [place], [place] [address] [place] [address] Harshad Perez M.D. [address] [place] [address] 04/26/2025 10:10 AM CDT Appointment Department of Laboratory Medicine and Pathology, [facility] in [place], [place] [address] [place] [address] Harshad Perez M.D. [address] [place] [address] 04/26/2025 11:00 AM CDT Nurse Only Division of Hematology in [place], [place] [address] [place] [phone] Harshad Perez M.D. [address] [place] [address] 04/26/2025 12:00 PM CDT Infusion Department of Oncology in [place], [place] [address] [place] [address] Harshad Perez M.D. [address] [place] [address] 04/26/2025 1:30 PM CDT Appointment Division of Pulmonary Medicine in [place], [place] [address] [place] [address] Harshad Perez M.D. [address] [place] [phone] Discharge Disposition: Home or Self Care 05/03/2025 10:15 AM CDT Infusion Department of Oncology in [place], [place] [address] [place] [phone] Harshad Perez M.D. [address] [place] [address] 05/10/2025 9:40 AM AUDIOVISUAL LEAD TECHNICIAN Appointment Department of Laboratory Medicine and Pathology, [facility] in [place], [place] [address] [place] [phone] Constantin López M.D. [address] [place] [address] 05/10/2025 11:30 AM AUDIOVISUAL LEAD TECHNICIAN Office Visit Division of Hematology in [address] [address] Mely Hayden, ANY, C.N.P., D.N.P., M.S. [address] [place] [address] 05/10/2025 1:00 PM AUDIOVISUAL LEAD TECHNICIAN Infusion Department of Oncology in [address] [address] Constantin López M.D. [address] [place] [address] 05/17/2025 10:15 AM AUDIOVISUAL LEAD TECHNICIAN Infusion Department of Oncology in [address] [address] Constantin López M.D. [address] [place] [address] 05/24/2025 10:00 AM AUDIOVISUAL LEAD TECHNICIAN Appointment Department of Laboratory Medicine and Pathology, [facility], in [place], [place] [address] [place] [address] Constantin López M.D. [address] [place] [phone] 05/24/2025 10:45 AM AUDIOVISUAL LEAD TECHNICIAN Appointment Division of Pulmonary Medicine in [place], [place] [address] [place] [phone] Harshad Perez M.D. [address] [place] [phone] Discharge Disposition: Home or Self Care 05/24/2025 12:00 PM AUDIOVISUAL LEAD TECHNICIAN Infusion Department of Oncology in [place], [place] [address] [place] [phone] Constantin López M.D. [address] [place] [address] 05/31/2025 10:00 AM AUDIOVISUAL LEAD TECHNICIAN Infusion Department of Oncology in [place], [place] [address] [place] [phone] Constantin López M.D. [address] [place] [phone] documented as of this encounter Results * (ABNORMAL) Lipid Panel [...] M.D. LAB BLOOD ADD-ON Final Resu lt [facility] [address] [place] [address], [facility] [address] [place] [address] * (ABNORMAL) 25-Hydroxyvitamin D2 and D3 (02/11/2025 8:41 AM CDT) 25-Hydroxy D2 <4.0 ng/mL 02/16/2025 11:09 AM CDT [facility] 25-Hydroxy D3 19 ng/mL 02/16/2025 11:09 AM CDT [facility] 25-Hydroxy D Total 19(L) ng/mL 2024 11:09 AM CDT [facility] Comment: Interpretation: 10-19 ng/mL (mild to moderate deficiency) ----REFERENCE VALUE---- 25-HYDROXY D TOTAL (D2+D3) Optimum levels in the healthy population are 20-50. ----ADDITIONAL INFORMATION---- This test was developed and its performance characteristics determined by [facility] in a manner consistent with CLIA requirements. This test has not been cleared or approved by the U.S. Food and Drug Administration. Blood (Blood, Venous) 02/11/2025 8:41 AM CDT 02/15/2025 7:51 AM CDT us Constantin López M.D. LAB BLOOD ADD-ON Final Resu lt [facility] [address] [place] [address] [facility] [address] [place] [address] [place] [address] documented in this encounter Visit Diagnoses Diagnosis Thoracic Aortic Aneurysm Without Rupture Unspecified- Primary Multiple Myeloma Not Having Achieved Remission (HCC) Fracture Vertebra Compress Malignant Initial documented in this encounter Additional Health Concerns Infection Onset Date Last Indicated Resolved Time Protective Environment 01/27/2025 01/27/2025 documented as of this encounter
--- OUTSIDE RECORDS SUMMARY | 2025-03-02 17:40 | XMS_ITS | Encounter Summary ---
Author Organization [facility] Address [address] [place] [address] Care Team Providers Care Automation Developer Name Role Phone Unavailable Primary Care Provider Unavailabl e Reason for Referral * Outpatient (Routine) - Closed Specialty Diagnoses / Procedures Referred By Teresa carvalho Referred To Contact Hematology Oncology Diagnoses Multiple Myeloma Not Having Achieved Remission (HCC) Tr Hernandez M.D. [address] [place] [phone] Phone: tel: fax: [facility] Referral ID Status Reason Start Date Expiration Date Visits Re quested Visits Authorized [id number] Closed 02/14/2025 08/16/2026 1 1 Encounter Details Date Type Department Care Team (Late st Contact Info) Description 02/14/2025 Orders Only Division of Hematology in [place], [place] [address] [place] [phone] Joey Majano [address] [place] [phone] Multiple Myeloma Not Having Achieved Remission (HCC) [...] things needed for daily living? No 01/27/2025 [facility] Utilities Answer Date Recorded In the past 12 months has [employer] electric, gas, oil, or water company threatened to shut off services in your home? No 01/27/2025 Housing Stability Answer Date Recorded What is your living situation today? 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 [address] [place] [phone] 03/08/2025 8:45 AM CDT Infusion Department of Oncology in [place], [place] [address] [place] [address] Constantin López M.D. [address] [place] [phone] 03/08/2025 10:30 AM CDT Comprehensive Visit Department of Vascular Medicine in [place], [place] [address] [place] [phone] Vic Flores M.D. [address] [place] [phone] 03/11/2025 12:30 PM CDT Diagnostic Division of Pulmonary Medicine in [place], [place] [address] [place] [phone] Constantin López M.D. [address] [place] [phone] 03/11/2025 2:00 PM CDT Appointment Department of Vascular Medicine in [place], [place] [address] [place] [phone] Constantin López M.D. [address] [place] [phone] Discharge Disposition: Home or Self Care 03/15/2025 9:00 AM CDT Comprehensive Visit Department of Spine in [place], [place] [address] [place] [phone] Hebert Francis APRN, C.N.P., M.S.N. [address] [place] [phone] 03/15/2025 12:30 PM CDT Appointment Department of Laboratory Medicine and Pathology, [facility], in [place], [place] [address] [place] [phone] Harshad Perez M.D. [address] [place] [phone] 03/15/2025 2:30 PM CDT Office Visit Division of Hematology in [place], [place] [address] [place] [phone] Mely Hayden APRN, C.N.P., D.N.P., M.S. [address] [place] [phone] 03/15/2025 4:00 PM CDT Infusion Department of Oncology in [place], [place] [address] [place] [phone] Harshad Perez M.D. [address] [place] [phone] 03/16/2025 1:30 PM CDT Comprehensive Visit Division of Pulmonary Medicine in [place], [place] [address] [place] [phone] Morgan Peck M.D. [address] [place] [phone] 03/22/2025 11:10 AM CDT Appointment Department of Laboratory Medicine and Pathology, [facility], in [place], [place] [address] [place] [phone] Harshad Perez M.D. [address] [place] [phone] 03/22/2025 1:00 PM CDT Infusion Department of Oncology in [place], [place] [address] [place] [phone] Harshad Perez M.D. [address] [place] [phone] 03/29/2025 9:15 AM CDT Appointment Division of Pulmonary Medicine in [place], [place] [address] [place] [phone] Harshad Perez M.D. [address] [place] [phone] Discharge Disposition: Home or Self Care 03/29/2025 10:30 AM CDT Appointment Department of Laboratory Medicine and Pathology, [facility] in [place], [place] [address] [place] [phone] Harshad Perez M.D. [address] [place] [phone] 03/29/2025 11:15 AM CDT Nurse Only Division of Hematology in [place], [place] [address] [place] [phone] Harshad Perez M.D. [address] [place] [phone] 03/29/2025 1:30 PM CDT Infusion Department of Oncology in [place], [place] [address] [place] [phone] Harshad Perez M.D. [address] [place] [phone] 04/05/2025 10:10 AM CDT Appointment Department of Laboratory Medicine and Pathology, [facility] in [place], [place] [address] [place] [phone] Harshad Perez M.D. [address] [place] [phone] 04/05/2025 12:00 PM CDT Infusion Department of Oncology in [place], [place] [address] [place] [phone] Harshad Perez M.D. [address] [place] [phone] 04/12/2025 11:40 AM CDT Appointment Department of Laboratory Medicine and Pathology, [facility], in [place], [place] [address] [place] [phone] Harshad Perez M.D. [address] [place] [phone] 04/12/2025 1:30 PM CDT Office Visit Division of Hematology in [place], [place] [address] [place] [address] Tr Hernandez M.D. [address] [place] [phone] 04/12/2025 3:30 PM CDT Infusion Department of Oncology in [place], [place] [address] [place] [address] Harshad Perez M.D. [address] [place] [phone] 04/19/2025 10:15 AM CDT Infusion Department of Oncology in [place], [place] [address] [place] [address] Harshad Perez M.D. [address] [place] [phone] 04/26/2025 10:10 AM CDT Appointment Department of Laboratory Medicine and Pathology, [facility], in [place], [place] [address] [place] [address] Harshad Perez M.D. [address] [place] [phone] 04/26/2025 11:00 AM CDT Nurse Only Division of Hematology in [place], [place] [address] [place] [phone] Harshad Perez M.D. [address] [place] [phone] 04/26/2025 12:00 PM CDT Infusion Department of Oncology in [place], [place] [address] [place] [phone] Harshad Perez M.D. [address] [place] [phone] 04/26/2025 1:30 PM CDT Appointment Division of Pulmonary Medicine in [place], [place] [address] [place] [phone] Harshad Perez M.D. [address] [place] [phone] Discharge Disposition: Home or Self Care 05/03/2025 10:15 AM CDT Infusion Department of Oncology in [place], [place] [address] [place] [address] Harshad Perez M.D. [address] [place] [phone] 05/10/2025 9:40 AM MAINS AND SERVICE SUPERVISOR Appointment Department of Laboratory Medicine and Pathology, [facility] in [place], [place] [address] [place] [phone] Constantin López M.D. [address] [place] [phone] 05/10/2025 11:30 AM MAINS AND SERVICE SUPERVISOR Office Visit Division of Hematology in [place], [place] [address] [place] [phone] Mely Hayden APRN, C.N.P., D.N.P., M.S. [address] [place] [phone] 05/10/2025 1:00 PM MAINS AND SERVICE SUPERVISOR Infusion Department of Oncology in [place], [place] [address] [place] [address] Constantin López M.D. [address] [place] [phone] 05/17/2025 10:15 AM MAINS AND SERVICE SUPERVISOR Infusion Department of Oncology in [place], [place] [address] [place] [phone] Constantin López M.D. [address] [place] [phone] 05/24/2025 10:00 AM MAINS AND SERVICE SUPERVISOR Appointment Department of Laboratory Medicine and Pathology, [facility] in [place], [place] [address] [place] [phone] Constantin López M.D. [address] [place] [phone] 05/24/2025 10:45 AM MAINS AND SERVICE SUPERVISOR Appointment Division of Pulmonary Medicine in [address] [phone] Harshad Perez M.D. [address] [place] [phone] Discharge Disposition: Home or Self Care 05/24/2025 12:00 PM MAINS AND SERVICE SUPERVISOR Infusion Department of Oncology in [address] [phone] Constantin López M.D. [address] [place] [phone] 05/31/2025 10:00 AM MAINS AND SERVICE SUPERVISOR Infusion Department of Oncology in [address] [phone] Constantin López M.D. [address] [place] [phone] Scheduled Referrals Name Type Priority Associated Diagnoses Order Schedule Hematology nurse visit (clinic) Outpatient Referral Routine Multiple Myeloma Not Having Achieved Remission (HCC) Expected: 02/15/2025, Expires: 05/17/2026 documented as of this encounter Visit Diagnoses Diagnosis Multiple Myeloma Not Having Achieved Remission (HCC)- Primary documented in this encounter Additional Health Concerns Infection Onset Date Last Indicated Resolved Time Protective Environment 01/27/2025 01/27/2025 documented as of this encounter
--- NOTE | 2025-03-02 17:41 | ED_ITS ---
HPI - General Adult General Time Seen by Provider: 17:43 Date Seen: 03/02/25 Chief complaint: Back Injury/Pain Stated complaint: back pain Time Seen by Provider: 03/02/25 17:40 Source: patient Mode of arrival: ambulatory Limitations: no limitations History of Present Illness HPI narrative: 60-year-old male with multiple myeloma comes in today with back pain. Patient notes he had physical therapy 3 days ago and did exercise where he flexed his knees up toward his chest, the next day had some pain in the back buttock got better. [place] okay yesterday and then today was lifting and twisting to put a water jug on a water dispenser, subsequently developed back pain. This was gradual onset. Pain is on the sides of the back, worse with movement. No chest pain, shortness of breath, and pain is not worse with breathing. No numbness tingling in the arms or legs. Patient has been taking Tylenol for this. Related Data Home Medications ?Medication ?Instructions ?Recorded ?Confirmed acyclovir 400 mg tablet 400 mg PO BID 03/02/2503/02 allopurinol 100 mg tablet mg PO 03/02/25 bortezomib 3.5 mg injection powder 1.2 mg subcut QWEEK 03/02/25 03/02/25 for solution (Velcade) daratumumab 20 mg/mL intravenous IV 03/02/25 solution (Darzalex) dexamethasone 4 mg tablet mg PO 03/02/25 gabapentin 300 mg capsule 300 mg PO BID 03/02/2503/02 iberdomide 03/02/25 lenalidomide 10 mg capsule PO 03/02/25 levofloxacin 250 mg tablet 250 mg PO DAILY 03/02/25 olanzapine 2.5 mg tablet (Zyprexa) 2.5 mg PO QHS 03/0203/02/25 omeprazole 20 mg capsule,delayed 20 mg PO DAILY 03/02/25 release ondansetron HCl 8 mg tablet 8 mg PO 3XD 03/02/2503/02 prochlorperazine maleate 10 mg PO 03/02/25 tablet sulfamethoxazole 800 1 tab PO BID 03/02/25 mg-trimethoprim 160 mg tablet zoledronic acid 4 mg/5 mL IV 03/02/25 intravenous solution Allergies Allergy/AdvReac Type Severity Reaction Status Date / Time No Known Drug Allergies Allergy Verified 03/02/25 17:50 [facility] Medical History (Updated 03/02/25 @ 20:08 by Magno Smart MD) Prediabetes ?R73.03 - Prediabetes (ICD-10) Multiple myeloma ?C90.00 - Multiple myeloma not having achieved remission (ICD-10) Dyslipidemia ?E78.5 - Hyperlipidemia, unspecified (ICD-10) Tear of meniscus of left knee ?S83.207A - Unspecified tear of unspecified meniscus, current injury, left knee, initial encounter (ICD-10) Surgical History (Updated 03/02/25 @ 19:34 by Macario López RN) History of colonoscopy ?Z98.890 - Other specified postprocedural states (ICD-10) History of appendectomy ?Z90.49 - Acquired absence of other specified parts of digestive tract (ICD-10) Social History Smoking Status: Former smoker How often do you have a drink containing alcohol: never AUDIT-C Alcohol total score: 0 Non-prescribed substance use: denies use Exam Narrative: Exam Narrative: General: well nourished , appears anxious, pacing in the room Head: Atraumatic and normocephalic ENT: External ears and external nose are normal Eyes: Conjunctiva clear, pupils are equal reactive, external ocular motions are intact Neck: Full spontaneous range of motion of the neck Lungs: No respiratory distress Musculoskeletal: Bilateral low thoracic/upper lumbar tenderness, no midline tenderness Neurologic: No gross focal neurologic deficits Skin: No rashes Psych: Psychomotor agitation Const: Vital Signs, click to edit/add: Vital Signs - 24 hr 03/02/25 17:46 03/02/25 20:05 Temperature 96.9 F L Pulse Rate [Pulse Oximeter] 81 Respiratory Rate 20 Blood Pressure [Ri ght Upper Arm] 119/76 Pulse Oximetry 98 97 Oxygen Delivery Me thod Room Air Course Course ED Course: Reviewed prior records from [facility], patient had an MRI at [place] on February 22 for low back pain, found to have myelomatous changes of the axial skeleton with no soft tissue extension. Patient received chemotherapy yesterday. Patient seen examined, presents today with bilateral low thoracic paraspinous tenderness and pain gradual onset after lifting and twisting earlier today. No neurologic symptoms, no midline tenderness, no red flag symptoms to suggest need for advanced imaging including CT scan of the spine or MRI. Patient will be given Toradol IM, lidocaine patches, and plan for discharge. Consider muscle re laxant at time of discharge. Patient is already on gabapentin twice a day and should continue this. Reevaluation(s) Time of Reevaluation #1: 18:53 Reevaluation #1: Patient is up and down walking around the room, has taken off his shoes and his left sock, goes from chair to pacing to laying on the bed and back. Patient recheck, now is complaining of sharp abdominal pain that started since his arrival in the emergency department. No nausea vomiting. On exam he, initially has no abdominal tenderness, but on further exam complains of right-sided and epigastric tenderness. Labs are ordered along with CT abdomen and pelvis. Time of Reevaluation #2: 19:37 Reevaluation #2: CT abdomen pelvis independently interpreted by me without acute intra-abdominal findings. Time of Reevaluation #3: 19:55 Reevaluation #3: Labs independently interpreted by me with normal cell CBC, normal hepatic panel, mild hyponatremia, creatinine 1.4, urinalysis concentrated. IV fluids are ordered anticipate discharge. Patient was rechecked and still complaining of some abdominal pain, we discussed findings of moderate volume stool on his CT scan which may be contributing to his symptoms but no other intra-abdominal findings. Patient will be given morphine, fluids and plan for discharge. Additional Reevaluation(s): 20:[address] scan which agrees with my initial interpretation, no acute findings. Patient will be discharged with follow-up with oncology. IMPRESSION: 1. Multiple lucent bony lesions throughout axial and appendicular skeleton. Findings can be seen with diffuse demineralization/osteoporosis, multiple myeloma or less likely lytic bony metastasis in the appropriate clinical setting. Clinical and lab value correlation is recommended. 2. Scattered hypoattenuating liver lesions, too small to characterize, largest in the left hepatic lobe is likely a cyst. Further assessment with liver ultrasound would be of help. Vital Signs Vital signs: Initial Vital Signs Temperature 96.9 F L 03/02/25 17:46 Temperature Source Temporal Artery Scan 03/02/25 17:46 Pulse Rate 81 03/02/25 17:46 Respiratory Rate 20 03/02/25 17:46 Blood Pressure 119/76 03/02/25 17:46 Blood Pressure Mean 90 03/02/25 17:46 Blood Pressure Position Sitting 03/02/25 17:46 Pulse Oximetry 98 03/02/25 17:46 Oxygen Delivery Method Room Air 03/02/25 17:46 Vital Signs Temperature 96.9 F L 03/02/25 17:46 Pulse Rate 81 03/02/25 17:46 Respiratory Rate 20 03/02/25 17:46 Blood Pressure 119/76 03/02/25 17:46 Pulse Oximetry 98 03/02/25 17:46 Oxygen Delivery Method Room Air 03/02/25 17:46 Temperature 96.9 F L 03/02/25 17:46 Pulse Rate 81 03/02/25 17:46 Respiratory Rate 20 03/02/25 17:46 Blood Pressure 119/76 03/02/25 17:46 Pulse Oximetry 97 03/02/25 20:05 Oxygen Delivery Method Room Air 03/02/25 17:46 Medications Administered Medications: Generic Name Dose Route Start Last Admin Trade Name Freq PRN Reason Stop Dose Admin Sodium Chloride 1,000 mls @ 1,000 mls/hr 03/02/25 20:00 03/02/25 20:14 0.9 % Sodium Chloride 1000 Ml IV 03/02/25 20:59 1,000 mls/hr .Q1H DWAYNE Administration Morphine Sulfate 4 mg 03/02/25 20:04 03/02/25 20:14 Morphine 4 Mg/Ml Inj IVP 03/02/25 20:05 4 mg ONCE ONE Administration Discontinued Medications Generic Name Dose Route Start Last Admin Trade Name Freq PRN Reason Stop Dose Admin Famotidine 20 mg 03/02/25 18:55 03/02/25 19:09 Famotidine 10 Mg/Ml Inj IVP 03/02/25 18:56 20 mg ONCE ONE Administration Ketorolac Tromethamine 30 mg 03/02/25 18:00 03/02/25 18:09 Ketorolac 30 Mg/Ml Inj IM 03/02/25 18:01 30 mg ONCE ONE Administration Lidocaine 2 patch 03/02/25 18:00 03/02/25 18:09 Lidocaine 5% Patch TRANSDERMA 03/02/25 18:01 2 patch ONCE ONE Administration Protocol Medical Decision Making Lab Data Labs: Lab Results 03/02/25 03/02/25 03/02/25 Range/Units 18:55 19:00 19:04 WBC (4.50-11.00) K/uL RBC (4.30-5.90) m/uL Hgb (13.5-17.5) gm/dL Hct (37.0-53.0) % MCV (80-100) fL MCH (26-34) pg MCHC (32-36) gm/dL RDW Coeff of David (11.5-15.5) % Plt Count (140-440) K/uL Neut % (Auto) (42.0-72.0) % Lymph % (Auto) (20-44) % Jefferson % (Auto) (0.0-11.0) % Eos % (Auto) (0.0-7.0) % Baso % (Auto) (0.0-3.0) % Neut # (Auto) (1.7-7.0) K/uL Lymph # (Auto) (0.90-2.90) K/uL Jefferson # (Auto) (0.00-0.90) K/UL Eos # (Auto) (0.00-0.50) K/uL Baso # (Auto) (0.00-0.30) K/uL Abs Immat Gran (auto) (0.00-0.30) K/uL Imm/Tot Granulo (auto) % Sodium (135-149) mmol/L Potassium (3.6-5.1) mmol/L Chloride (96-114) mmol/L Carbon Dioxide (20-32) mmol/L Anion Gap (7-15) mEq/L BUN (7-30) mg/dL Creatinine (0.5-1.5) mg/dL Estimated Creat Clear Estimated GFR ml/min Glucose (60-115) mg/dL Calcium (8.4-10.6) mg/dL Magnesium (1.5-2.6) mg/dL Total Bilirubin (0.1-1.5) mg/dL Direct Bilirubin (0.0-0.5) mg/dL AST (12-35) U/L ALT (4-50) U/L Alkaline Phosphatase (40-150) U/L Total Protein (6.0-8.3) g/dL Albumin (3.3-5.0) g/dL Lipase (23-300) U/L Urine Color Dark yellow (Yellow) Urine Appearance Clear (Clear) Urine pH 5.0 (5.0-8.5) Ur Specific Brooks >= 1.030 (1.000-1.030) Urine Protein Negative (Negative) Urine Glucose (UA) Negative (Negative) Urine Ketones Negative (Negative) Urine Blood Trace-lysed A (Negative) Urine Nitrite Negative (Negative) Urine Bilirubin Negative (Negative) Urine Urobilinogen 0.2 (0.2-1.0) Ur Leukocyte Esterase Negative (Negative) Urine RBC 0-2 (0-2) Urine WBC 2-5 (0-5) Ur Squamous Epith Cells Few (None-Few) Urine Bacteria Few A (None) Fine Granular Casts Many A (None) Urine Opiates Screen Negative (Negative) Ur Oxycodone Screen Negative (Negative) Urine Methadone Screen Negative (Negative) Ur Barbiturates Screen Negative (Negative) U Tricyclic Antidepress Negative (Negative) Ur Phencyclidine Scrn Negative (Negative) Ur Amphetamines Screen Negative (Negative) U Methamphetamines Scrn Negative (Negative) U Benzodiazepines Scrn Negative (Negative) Urine Cocaine Screen Negative (Negative) U Marijuana (THC) Screen Negative (Negative) Ur Drug Screen Comment See Note Lab Acknowledgement POC Creatinine 1.6 H (0.6-1.3) mg/dl 03/02/25 03/02/25 Range/Units 19:12 19:48 WBC 6.03 (4.50-11.00) K/uL RBC 3.61 L (4.30-5.90) m/uL Hgb 10.7 L (13.5-17.5) gm/dL Hct 32.4 L (37.0-53.0) % MCV 90 (80-100) fL MCH 30 (26-34) pg MCHC 33 (32-36) gm/dL RDW Coeff of David 14.7 (11.5-15.5) % Plt Count 215 (140-440) K/uL Neut % (Auto) 51.3 (42.0-72.0) % Lymph % (Auto) 37.8 (20-44) % Jefferson % (Auto) 9.6 (0.0-11.0) % Eos % (Auto) 0.8 (0.0-7.0) % Baso % (Auto) 0.3 (0.0-3.0) % Neut # (Auto) 3.09 (1.7-7.0) K/uL Lymph # (Auto) 2.28 (0.90-2.90) K/uL Jefferson # (Auto) 0.60 (0.00-0.90) K/UL Eos # (Auto) 0.05 (0.00-0.50) K/uL Baso # (Auto) 0.02 (0.00-0.30) K/uL Abs Immat Gran (auto) 0.01 (0.00-0.30) K/uL Imm/Tot Granulo (auto) 0.2 % Sodium 128 L (135-149) mmol/L Potassium 4.0 (3.6-5.1) mmol/L Chloride 100 (96-114) mmol/L Carbon Dioxide 21 (20-32) mmol/L Anion Gap 7 (7-15) mEq/L BUN 34 H (7-30) mg/dL Creatinine 1.4 (0.5-1.5) mg/dL Estimated Creat Clear 52.93 Estimated GFR 57 ml/min Glucose 119 H (60-115) mg/dL Calcium 8.3 L (8.4-10.6) mg/dL Magnesium 2.0 (1.5-2.6) mg/dL Total Bilirubin 0.2 (0.1-1.5) mg/dL Direct Bilirubin 0.1 (0.0-0.5) mg/dL AST 22 (12-35) U/L ALT 15 (4-50) U/L Alkaline Phosphatase 72 (40-150) U/L Total Protein 7.0 (6.0-8.3) g/dL Albumin 3.3 (3.3-5.0) g/dL Lipase 181 (23-300) U/L Urine Color (Yellow) Urine Appearance (Clear) Urine pH (5.0-8.5) Ur Specific Brooks (1.000-1.030) Urine Protein (Negative) Urine Glucose (UA) (Negative) Urine Ketones (Negative) Urine Blood (Negative) Urine Nitrite (Negative) Urine Bilirubin (Negative) Urine Urobilinogen (0.2-1.0) Ur Leukocyte Esterase (Negative) Urine RBC (0-2) Urine WBC (0-5) Ur Squamous Epith Cells (None-Few) Urine Bacteria (None) Fine Granular Casts (None) Urine Opiates Screen (Negative) Ur Oxycodone Screen (Negative) Urine Methadone Screen (Negative) Ur Barbiturates Screen (Negative) U Tricyclic Antidepress (Negative) Ur Phencyclidine Scrn (Negative) Ur Amphetamines Screen (Negative) U Methamphetamines Scrn (Negative) U Benzodiazepines Scrn (Negative) Urine Cocaine Screen (Negative) U Marijuana (THC) Screen (Negative) Ur Drug Screen Comment Lab Acknowledgement Test Added POC Creatinine (0.6-1.3) mg/dl Discharge Plan Discharge Clinical Impression: Bilateral thoracic back pain, Constipation, Abdominal pain Patient Disposition: Home, Self-Care Condition: Stable Instructions: Abdominal Pain (ED), Thoracic Pain (ED) Additional Instructions: Contact your oncologist to discuss your symptoms, as abdominal pain and back pain as well as anxiety can be side effects of zoledronic acid Activity Level: Activity as Tolerated Discharge Diet: Regular Prescriptions: No Action ondansetron HCl 8 mg tablet 8 mg PO 3XD levofloxacin 250 mg tablet 250 mg PO DAILY prochlorperazine maleate 10 mg tablet PO acyclovir 400 mg tablet 400 mg PO BID allopurinol 100 mg tablet PO sulfamethoxazole-trimethoprim 800-160 mg tablet 1 tab PO BID dexamethasone 4 mg tablet PO gabapentin 300 mg capsule 300 mg PO BID omeprazole 20 mg capsule,delayed release(DR/EC) 20 mg PO DAILY lenalidomide 10 mg capsule PO bortezomib [Velcade] 3.5 mg recon soln 1.2 mg subcut QWEEK Rx Instructions: administer as 2.5 mg/mL final concentration iberdomide Darzalex 20 mg/mL solution IV olanzapine [Zyprexa] 2.5 mg tablet 2.5 mg PO QHS zoledronic acid 4 mg/5 mL solution IV Follow Up/Referrals: Provider,Not a Local [Primary Care Provider, Family Practice] Stand Alone Forms: [employer] Info Instructions
--- OUTSIDE RECORDS SUMMARY | 2025-03-02 17:41 | XMS_ITS | Encounter Summary ---
Author Organization [facility] Address [address] [place] [address] Care Team Providers Care Social Work Specialist Name Role Phone Unavailable Primary Care Provider Unavailabl e Reason for Visit * Reason Onset Date Comments 03/22+//myeloma//est 02/15/2025 Encounter Details Date Type Department Care Team (Latest Contact Info) Description 02/15/2025 Clinical Communication Division of Hematology in [place], [place] [address] [place] [address] Harshad Perez M.D. [address] [place] [address] 03/22+//myeloma//est Social History Tobacco Use Types Packs/Day Years [...] things needed for daily living? No 01/27/2025 [facility] Utilities Answer Date Recorded In the past 12 months has th e [employer], gas, oil, or water company threatened to shut off services in your home? No 01/27/2025 Housing Stability Answer Date Recorded What is your living situation today? 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 [address] [place] [phone] 03/08/2025 8:45 AM CDT Infusion Department of Oncology in [place], [place] [address] [place] [phone] Constantin López M.D. [address] [place] [phone] 03/08/2025 10:30 AM CDT Comprehensive Visit Department of Vascular Medicine in [place], [place] [address] [place] [address] Vic Flores M.D. [address] [place] [phone] 03/11/2025 12:30 PM CDT Diagnostic Division of Pulmonary Medicine in [place], [place] [address] [place] [phone] Constantin López M.D. [address] [place] [phone] 03/11/2025 2:00 PM CDT Appointment Department of Vascular Medicine in [place], [place] [address] [place] [phone] Constantin López M.D. [address] [place] [phone] Discharge Disposition: Home or Self Care 03/15/2025 9:00 AM CDT Comprehensive Visit Department of Spine in [place], [place] [address] [place] [phone] Hebert Francis APRN, C.N.P., M.S.N. [address] [place] [phone] 03/15/2025 12:30 PM CDT Appointment Department of Laboratory Medicine and Pathology, [facility] in [place], [place] [address] [place] [phone] Harshad Perez M.D. [address] [place] [phone] 03/15/2025 2:30 PM CDT Office Visit Division of Hematology in [place], [place] [address] [place] [phone] Mely Hayden, ANY, C.N.P., D.N.P., M.S. [address] [place] [phone] 03/15/2025 4:00 PM CDT Infusion Department of Oncology in [place], [place] [address] [place] [phone] Harshad Perez M.D. [address] [place] [phone] 03/16/2025 1:30 PM CDT Comprehensive Visit Division of Pulmonary Medicine in [place], [place] [address] [place] [address] Morgan Peck M.D. [address] [place] [phone] 03/22/2025 11:10 AM CDT Appointment Department of Laboratory Medicine and Pathology, [facility] in [place], [place] [address] [place] [phone] Harshad Perez M.D. [address] [place] [phone] 03/22/2025 1:00 PM CDT Infusion Department of Oncology in [place], [place] [address] [place] [address] Harshad Perez M.D. [address] [place] [phone] 03/29/2025 9:15 AM CDT Appointment Division of Pulmonary Medicine in [place], [place] [address] [place] [phone] Harshad Perez M.D. [address] [place] [phone] Discharge Disposition: Home or Self Care 03/29/2025 10:30 AM CDT Appointment Department of Laboratory Medicine and Pathology, [facility] in [place], [place] [address] [place] [address] Harshad Perez M.D. [address] [place] [phone] 03/29/2025 11:15 AM CDT Nurse Only Division of Hematology in [place], [place] [address] [place] [address] Harshad Perez M.D. [address] [place] [phone] 03/29/2025 1:30 PM CDT Infusion Department of Oncology in [place], [place] [address] [place] [address] Harshad Perez M.D. [address] [place] [phone] 04/05/2025 10:10 AM CDT Appointment Department of Laboratory Medicine and Pathology, [facility] in [place], [place] [address] [place] [address] Harshad Perez M.D. [address] [place] [phone] 04/05/2025 12:00 PM CDT Infusion Department of Oncology in [place], [place] [address] [place] [address] Harshad Perez M.D. [address] [place] [phone] 04/12/2025 11:40 AM CDT Appointment Department of Laboratory Medicine and Pathology, [facility] in [place], [place] [address] [place] [address] Harshad Perez M.D. [address] [place] [phone] 04/12/2025 1:30 PM CDT Office Visit Division of Hematology in [place], [place] [address] [place] [address] Tr Hernandez M.D. [address] [place] [phone] 04/12/2025 3:30 PM CDT Infusion Department of Oncology in [place], [place] [address] [place] [address] Harshad Perez M.D. [address] [place] [phone] 04/19/2025 10:15 AM CDT Infusion Department of Oncology in [place], [place] [address] [place] [phone] Harshad Perez M.D. [address] [place] [phone] 04/26/2025 10:10 AM CDT Appointment Department of Laboratory Medicine and Pathology, [facility] in [place], [place] [address] [place] [phone] Harshad Perez M.D. [address] [place] [phone] 04/26/2025 11:00 AM CDT Nurse Only Division of Hematology in [address] [phone] Harshad Perez M.D. [address] [place] [phone] 04/26/2025 12:00 PM CDT Infusion Department of Oncology in [place], [place] [address] [place] [address] Harshad Perez M.D. [address] [place] [phone] 04/26/2025 1:30 PM CDT Appointment Division of Pulmonary Medicine in [place], [place] [address] [place] [phone] Harshad Perez M.D. [address] [place] [phone] Discharge Disposition: Home or Self Care 05/03/2025 10:15 AM CDT Infusion Department of Oncology in [place], [place] [address] [place] [phone] Harshad Perez M.D. [address] [place] [phone] 05/10/2025 9:40 AM PERFORMANCE TEST ARCHITECT Appointment Department of Laboratory Medicine and Pathology, [facility] in [address] [phone] Constantin López M.D. [address] [place] [phone] 05/10/2025 11:30 AM PERFORMANCE TEST ARCHITECT Office Visit Division of Hematology in [address] [phone] Mely Hayden APRN, C.N.P., D.N.P., M.S. [address] [place] [phone] 05/10/2025 1:00 PM PERFORMANCE TEST ARCHITECT Infusion Department of Oncology in [address] [phone] Constantin López M.D. [address] [place] [phone] 05/17/2025 10:15 AM PERFORMANCE TEST ARCHITECT Infusion Department of Oncology in [address] [phone] Constantin López M.D. [address] [place] [phone] 05/24/2025 10:00 AM PERFORMANCE TEST ARCHITECT Appointment Department of Laboratory Medicine and Pathology, [facility], in [place], [place] [address] [place] [phone] Constantin López M.D. [address] [place] [phone] 05/24/2025 10:45 AM PERFORMANCE TEST ARCHITECT Appointment Division of Pulmonary Medicine in [place], [place] [address] [place] [phone] Harshad Perez M.D. [address] [place] [phone] Discharge Disposition: Home or Self Care 05/24/2025 12:00 PM PERFORMANCE TEST ARCHITECT Infusion Department of Oncology in [place], [place] [address] [place] [phone] Constantin López M.D. [address] [place] [phone] 05/31/2025 10:00 AM PERFORMANCE TEST ARCHITECT Infusion Department of Oncology in [place], [place] [address] [place] [phone] Cosntantin López M.D. [address] [place] [phone] documented as of this encounter Visit Diagnoses Not on filedocumented in this encounter Additional Health Concerns Infection Onset Date Last Indicated Resolved Time Protective Environment 01/27/2025 01/27/2025 documented as of this encounter
--- OUTSIDE RECORDS SUMMARY | 2025-03-02 17:41 | XMS_ITS | Encounter Summary ---
Author Organization [facility] Address [address] [place] [id number] Care Team Providers Care Home Comfort Advisor Name Role Phone Unavailable Primary Care Provider Unavailabl e Reason for Visit * Reason Onset Date Comments 01/28//Daratumumab//NEW 01/27/2025 Encounter Details Date Type Department Care Team (Latest Contact Info) Description 01/27/2025 Clinical Communication Division of Hematology in [place], [place] [address] [place] [address] Harshad Perez M.D. [address] [place] [address] 01/28//Daratumumab// NEW Social History Tobacco Use Types Packs/Day Years [...] things needed for daily living? No 01/27/2025 [facility] Utilities Answer Date Recorded In the past 12 months has [facility] [employer], gas, oil, or water company threatened to shut off services in your home? No 01/27/2025 Housing Stability Answer Date Recorded What is your living situation today? I have a [facility] place to live 01/27/2025 Sex and Gender Information Value Date Recorded Sex Assigned at Male 01/27/2025 2:34 PM CDT Legal Sex Male 6:33 AM PUBLIC HEALTH REGISTRAR Gender Identity Male 01/27/2025 2:34 PM CDT Sexual Orientation Straight 01/27/2025 2: 34 PM CDT documented as of this encounter Plan of Treatment Upcoming Encounters Date Type Department Care Team (Latest Contact Info) Description 03/08/2025 8:00 AM CDT Appointment Department of Laboratory Medicine and Pathology, [facility], in [place], [place] [address] [place] [address] Constantin López M.D. [address] [place] [phone] 03/08/2025 8:45 AM CDT Infusion Department of Oncology in [place], [place] [address] [place] [address] Constantin López M.D. [address] [place] [phone] 03/08/2025 10:30 AM CDT Comprehensive Visit Department of Vascular Medicine in [place], [place] [address] [place] [address] Vic Flores M.D. [address] [place] [phone] 03/11/2025 12:30 PM CDT Diagnostic Division of Pulmonary Medicine in [place], [place] [address] [place] [phone] Constantin López M.D. [address] [place] [phone] 03/11/2025 2:00 PM CDT Appointment Department of Vascular Medicine in [place], [place] [address] [place] [phone] Constantin López M.D. [address] [place] [phone] Discharge Disposition: Home or Self Care 03/15/2025 9:00 AM CDT Comprehensive Visit Department of Spine in [place], [place] [address] [place] [phone] Hebert Francis APRN, C.N.P., M.S.N. [address] [place] [phone] 03/15/2025 12:30 PM CDT Appointment Department of Laboratory Medicine and Pathology, [facility] in [place], [place] [address] [place] [phone] Harshad Perez M.D. [address] [place] [phone] 03/15/2025 2:30 PM CDT Office Visit Division of Hematology in [place], [place] [address] [place] [phone] Mely Hayden, ANY, C.N.P., D.N.P., M.S. [address] [place] [phone] 03/15/2025 4:00 PM CDT Infusion Department of Oncology in [place], [place] [address] [place] [phone] Harshad Perez M.D. [address] [place] [phone] 03/16/2025 1:30 PM CDT Comprehensive Visit Division of Pulmonary Medicine in [place], [place] [address] [place] [address] Morgan Peck M.D. [address] [place] [phone] 03/22/2025 11:10 AM CDT Appointment Department of Laboratory Medicine and Pathology, [facility] in [place], [place] [address] [place] [phone] Harshad Perez M.D. [address] [place] [phone] 03/22/2025 1:00 PM CDT Infusion Department of Oncology in [place], [place] [address] [place] [phone] Harshad Perez M.D. [address] [place] [phone] 03/29/2025 9:15 AM CDT Appointment Division of Pulmonary Medicine in [place], [place] [address] [place] [phone] Harshad Perez M.D. [address] [place] [phone] Discharge Disposition: Home or Self Care 03/29/2025 10:30 AM CDT Appointment Department of Laboratory Medicine and Pathology, [facility] in [place], [place] [address] [place] [address] Harshad Perez M.D. [address] [place] [phone] 03/29/2025 11:15 AM CDT Nurse Only Division of Hematology in [place], [place] [address] [place] [address] Harshad Perez M.D. [address] [place] [phone] 03/29/2025 1:30 PM CDT Infusion Department of Oncology in [place], [place] [address] [place] [phone] Harshad Perez M.D. [address] [place] [phone] 04/05/2025 10:10 AM CDT Appointment Department of Laboratory Medicine and Pathology, [facility] in [place], [place] [address] [place] [address] Harshad Perez M.D. [address] [place] [phone] 04/05/2025 12:00 PM CDT Infusion Department of Oncology in [place], [place] [address] [place] [phone] Harshad Perez M.D. [address] [place] [phone] 04/12/2025 11:40 AM CDT Appointment Department of Laboratory Medicine and Pathology, [facility] in [place], [place] [address] [place] [address] Harshad Perez M.D. [address] [place] [phone] 04/12/2025 1:30 PM CDT Office Visit Division of Hematology in [place], [place] [address] [place] [address] Tr Hernandez M.D. [address] [place] [phone] 04/12/2025 3:30 PM CDT Infusion Department of Oncology in [place], [place] [address] [place] [address] Harshad Perez M.D. [address] [place] [phone] 04/19/2025 10:15 AM CDT Infusion Department of Oncology in [place], [place] [address] [place] [phone] Harshad Perez M.D. [address] [place] [phone] 04/26/2025 10:10 AM CDT Appointment Department of Laboratory Medicine and Pathology, [facility] in [place], [place] [address] [place] [phone] Harshad Perez M.D. [address] [place] [phone] 04/26/2025 11:00 AM CDT Nurse Only Division of Hematology in [place], [place] [address] [place] [phone] Harshad Perez M.D. [address] [place] [phone] 04/26/2025 12:00 PM CDT Infusion Department of Oncology in [place], [place] [address] [place] [address] Harshad Perez M.D. [address] [place] [phone] 04/26/2025 1:30 PM CDT Appointment Division of Pulmonary Medicine in [place], [place] [address] [place] [phone] Harshad Perez M.D. [address] [place] [phone] Discharge Disposition: Home or Self Care 05/03/2025 10:15 AM CDT Infusion Department of Oncology in [place], [place] [address] [place] [phone] Harshad Perez M.D. [address] [place] [phone] 05/10/2025 9:40 AM PUBLIC HEALTH REGISTRAR Appointment Department of Laboratory Medicine and Pathology, [facility] in [place], [place] [address] [place] [phone] Constantin López M.D. [address] [place] [phone] 05/10/2025 11:30 AM PUBLIC HEALTH REGISTRAR Office Visit Division of Hematology in [address] [phone] Mely Hayden, ANY, C.N.P., D.N.P., M.S. [address] [place] [phone] 05/10/2025 1:00 PM PUBLIC HEALTH REGISTRAR Infusion Department of Oncology in [address] [phone] Constantin López M.D. [address] [place] [phone] 05/17/2025 10:15 AM PUBLIC HEALTH REGISTRAR Infusion Department of Oncology in [address] [phone] Constantin López M.D. [address] [place] [phone] 05/24/2025 10:00 AM PUBLIC HEALTH REGISTRAR Appointment Department of Laboratory Medicine and Pathology, [facility], in [place], [place] [address] [place] [address] Constantin López M.D. [address] [place] [phone] 05/24/2025 10:45 AM PUBLIC HEALTH REGISTRAR Appointment Division of Pulmonary Medicine in [place], [place] [address] [place] [phone] Harshad Perez M.D. [address] [place] [phone] Discharge Disposition: Home or Self Care 05/24/2025 12:00 PM PUBLIC HEALTH REGISTRAR Infusion Department of Oncology in [place], [place] [address] [place] [phone] Constantin López M.D. [address] [place] [phone] 05/31/2025 10:00 AM PUBLIC HEALTH REGISTRAR Infusion Department of Oncology in [place], [place] [address] [place] [phone] Constantin López M.D. [address] [place] [phone] documented as of this encounter Visit Diagnoses Not on filedocumented in this encounter Additional Health Concerns Infection Onset Date Last Indicated Resolved Time Protective Environment 01/27/2025 01/27/2025 documented as of this encounter
--- OUTSIDE RECORDS SUMMARY | 2025-03-02 17:41 | XMS_ITS | Encounter Summary ---
[facility] Address [address] [place] [address] Care Team Providers Care Care Provider Name Role Phone Unavailable Primary Care Provider Unavailabl e Reason for Visit * Reason Onset Date Comments Results 01/27/2025 Encounter Details Date Type Department Care Team (Late st Contact Info) Description 01/27/2025 Clinical Communication Division of Hematology in [place], [place] [address] [place] [address] Cyndee Mak, RLevyNLevy Results Social History Tobacco Use Types Packs/Day Years [...] No 01/27/2025 [facility] Utilities Answer Date Recorded In the past 12 months has th e electric, gas, oil, or water company threatened to shut off services in your home? No 01/27/2025 Housing Stability Answer Date Recorded What is your living situation today? I have a [facility] place to live 01/27/2025 Sex and Gender Information Value Date Recorded Sex Assigned at Male 01/27/2025 2:34 PM CDT Legal Sex Male 6:33 AM ECONOMIC SPECIALIST Gender Identity Male 01/27/2025 2:34 PM CDT Sexual Orientation Straight 01/27/2025 2: 34 PM CDT documented as of this encounter Plan of Treatment Upcoming Encounters Date Type Department Care Team (Latest Contact Info) Description 03/08/2025 8:00 AM CDT Appointment Department of Laboratory Medicine and Pathology, [facility] in [place], [place] [address] [place] [address] Constantin López M.D. [address] [place] [phone] 03/08/2025 8:45 AM CDT Infusion Department of Oncology in [place], [place] [address] [place] [address] Constantin López M.D. [address] [place] [phone] 03/08/2025 10:30 AM CDT Comprehensive Visit Department of Vascular Medicine in [place], [place] [address] [place] [address] Vic Flores M.D. [address] [place] [phone] 03/11/2025 12:30 PM CDT Diagnostic Division of Pulmonary Medicine in [place], [place] [address] [place] [address] Constantin López M.D. [address] [place] [phone] 03/11/2025 2:00 PM CDT Appointment Department of Vascular Medicine in [place], [place] [address] [place] [phone] Constantin López M.D. [address] [place] [phone] Discharge Disposition: Home or Self Care 03/15/2025 9:00 AM CDT Comprehensive Visit Department of Spine in [place], [place] [address] [place] [phone] Hebert Francis APRN, C.N.P., M.S.N. [address] [place] [phone] 03/15/2025 12:30 PM CDT Appointment Department of Laboratory Medicine and Pathology, [facility] in [place], [place] [address] [place] [phone] Harshad Perez M.D. [address] [place] [phone] 03/15/2025 2:30 PM CDT Office Visit Division of Hematology in [place], [place] [address] [place] [phone] Mely Hayden APRN, C.N.P., D.N.P., M.S. [address] [place] [phone] 03/15/2025 4:00 PM CDT Infusion Department of Oncology in [place], [place] [address] [place] [phone] Harshad Perez M.D. [address] [place] [phone] 03/16/2025 1:30 PM CDT Comprehensive Visit Division of Pulmonary Medicine in [place], [place] [address] [place] [phone] Morgan Peck M.D. [address] [place] [phone] 03/22/2025 11:10 AM CDT Appointment Department of Laboratory Medicine and Pathology, [facility] in [place], [place] [address] [place] [phone] Harshad Perez M.D. [address] [place] [phone] 03/22/2025 1:00 PM CDT Infusion Department of Oncology in [place], [place] [address] [place] [address] Harshad Perez M.D. [address] [place] [phone] 03/29/2025 9:15 AM CDT Appointment Division of Pulmonary Medicine in [place], [place] [address] [place] [phone] Harshad Perez M.D. [address] [place] [phone] Discharge Disposition: Home or Self Care 03/29/2025 10:30 AM CDT Appointment Department of Laboratory Medicine and Pathology, [facility], in [place], [place] [address] [place] [address] Harshad Perez M.D. [address] [place] [phone] 03/29/2025 11:15 AM CDT Nurse Only Division of Hematology in [place], [place] [address] [place] [address] Harshad Perez M.D. [address] [place] [phone] 03/29/2025 1:30 PM CDT Infusion Department of Oncology in [place], [place] [address] [place] [phone] Harshad Perez M.D. [address] [place] [phone] 04/05/2025 10:10 AM CDT Appointment Department of Laboratory Medicine and Pathology, [facility] in [place], [place] [address] [place] [phone] Harshad Perez M.D. [address] [place] [phone] 04/05/2025 12:00 PM CDT Infusion Department of Oncology in [place], [place] [address] [place] [phone] Harshad Perez M.D. [address] [place] [phone] 04/12/2025 11:40 AM CDT Appointment Department of Laboratory Medicine and Pathology, [facility] in [place], [place] [address] [place] [address] Harshad Perez M.D. [address] [place] [phone] 04/12/2025 1:30 PM CDT Office Visit Division of Hematology in [place], [place] [address] [place] [phone] Tr Hernandez M.D. [address] [place] [phone] 04/12/2025 3:30 PM CDT Infusion Department of Oncology in [place], [place] [address] [place] [phone] Harshad Perez M.D. [address] [place] [phone] 04/19/2025 10:15 AM CDT Infusion Department of Oncology in [place], [place] [address] [place] [phone] Harshad Perez M.D. [address] [place] [phone] 04/26/2025 10:10 AM CDT Appointment Department of Laboratory Medicine and Pathology, [facility] in [place], [place] [address] [place] [phone] Harshad Perez M.D. [address] [place] [phone] 04/26/2025 11:00 AM CDT Nurse Only Division of Hematology in [place], [place] [address] [place] [phone] Harshad Perez M.D. [address] [place] [phone] 04/26/2025 12:00 PM CDT Infusion Department of Oncology in [place], [place] [address] [place] [phone] Harshad Perez M.D. [address] [place] [phone] 04/26/2025 1:30 PM CDT Appointment Division of Pulmonary Medicine in [place], [place] [address] [place] [phone] Harshad Perez M.D. [address] [place] [phone] Discharge Disposition: Home or Self Care 05/03/2025 10:15 AM CDT Infusion Department of Oncology in [place], [place] [address] [place] [phone] Harshad Perez M.D. [address] [place] [phone] 05/10/2025 9:40 AM ECONOMIC SPECIALIST Appointment Department of Laboratory Medicine and Pathology, [place], [place] [address] [place] [phone] Constantin López M.D. [address] [place] [phone] 05/10/2025 11:30 AM ECONOMIC SPECIALIST Office Visit Division of Hematology in [place], [place] [address] [place] [phone] Mely Hayden APRN, C.N.P., D.N.P., M.S. [address] [place] [phone] 05/10/2025 1:00 PM ECONOMIC SPECIALIST Infusion Department of Oncology in [place], [place] [address] [place] [phone] Constantin López M.D. [address] [place] [phone] 05/17/2025 10:15 AM ECONOMIC SPECIALIST Infusion Department of Oncology in [place], [place] [address] [place] [phone] Constantin López M.D. [address] [place] [phone] 05/24/2025 10:00 AM ECONOMIC SPECIALIST Appointment Department of Laboratory Medicine and Pathology, [facility] in [place], [place] [address] [place] [phone] Constantin López M.D. [address] [place] [phone] 05/24/2025 10:45 AM ECONOMIC SPECIALIST Appointment Division of Pulmonary Medicine in [place], [place] [address] [place] [phone] Harshad Perez M.D. [address] [place] [phone] Discharge Disposition: Home or Self Care 05/24/2025 12:00 PM ECONOMIC SPECIALIST Infusion Department of Oncology in [place], [place] [address] [place] [phone] Constantin López M.D. [address] [place] [phone] 05/31/2025 10:00 AM ECONOMIC SPECIALIST Infusion Department of Oncology in [place], [place] [address] [place] [phone] Constantin López M.D. [address] [place] [phone] documented as of this encounter Visit Diagnoses Not on filedocumented in this encounter Additional Health Concerns Infection Onset Date Last Indicated Resolved Time Protective Environment 01/27/2025 01/27/2025 documented as of this encounter
--- OUTSIDE RECORDS SUMMARY | 2025-03-02 17:41 | XMS_ITS | Encounter Summary ---
Author Organization [facility] Address [address] [place] [id number] Care Team Providers Care Legal Job Titles Name Role Phone Unavailable Primary Care Provider Unavailabl e Encounter Details Date Type Department Care Team (Late Contact Info) Description 02/15/2025 Orders Only Division of Hematology in [place], [place] [address] [place] [address] Constantin López M.D. [address] [place] [address] Social History Tobacco Use Types Packs/Day Years [...] things needed for daily living? No 01/27/2025 [facility] Utilities Answer Date Recorded In the past 12 months has th e electric, gas, oil, or water company threatened to shut off services in your home? No 01/27/2025 Housing Stability Answer Date Recorded What is your living situation today? 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 [address] [place] [phone] 03/08/2025 8:45 AM CDT Infusion Department of Oncology in [place], [place] [address] [place] [phone] Constantin López M.D. [address] [place] [phone] 03/08/2025 10:30 AM CDT Comprehensive Visit Department of Vascular Medicine in [place], [place] [address] [place] [phone] Vic Flores M.D. [address] [place] [phone] 03/11/2025 12:30 PM CDT Diagnostic Division of Pulmonary Medicine in [place], [place] [address] [place] [phone] Constantin López M.D. [address] [place] [phone] 03/11/2025 2:00 PM CDT Appointment Department of Vascular Medicine in [place], [place] [address] [place] [address] Constantin López M.D. [address] [place] [phone] Discharge Disposition: Home or Self Care 03/15/2025 9:00 AM CDT Comprehensive Visit Department of Spine in [place], [place] [address] [place] [phone] Hebert Francis APRN, C.N.P., M.S.N. [address] [place] [phone] 03/15/2025 12:30 PM CDT Appointment Department of Laboratory Medicine and Pathology, [facility] in [place], [place] [address] [place] [address] Harshad Perez M.D. [address] [place] [phone] 03/15/2025 2:30 PM CDT Office Visit Division of Hematology in [place], [place] [address] [place] [phone] Mely Hayden APRN, C.N.P., D.N.P., M.S. [address] [place] [phone] 03/15/2025 4:00 PM CDT Infusion Department of Oncology in [place], [place] [address] [place] [phone] Harshad Perez M.D. [address] [place] [phone] 03/16/2025 1:30 PM CDT Comprehensive Visit Division of Pulmonary Medicine in [place], [place] [address] [place] [phone] Morgan Peck M.D. [address] [place] [phone] 03/22/2025 11:10 AM CDT Appointment Department of Laboratory Medicine and Pathology, [facility], in [place], [place] [address] [place] [address] Harshad Perez M.D. [address] [place] [phone] 03/22/2025 1:00 PM CDT Infusion Department of Oncology in [place], [place] [address] [place] [phone] Harshad Perez M.D. [address] [place] [phone] 03/29/2025 9:15 AM CDT Appointment Division of Pulmonary Medicine in [place], [place] [address] [place] [phone] Harshad Perez M.D. [address] [place] [phone] Discharge Disposition: Home or Self Care 03/29/2025 10:30 AM CDT Appointment Department of Laboratory Medicine and Pathology, [facility], in [place], [place] [address] [place] [address] Harshad Perez M.D. [address] [place] [phone] 03/29/2025 11:15 AM CDT Nurse Only Division of Hematology in [place], [place] [address] [place] [address] Harshad Perez M.D. [address] [place] [phone] 03/29/2025 1:30 PM CDT Infusion Department of Oncology in [place], [place] [address] [place] [address] Harshad Perez M.D. [address] [place] [phone] 04/05/2025 10:10 AM CDT Appointment Department of Laboratory Medicine and Pathology, [facility] in [place], [place] [address] [place] [phone] Harshad Perez M.D. [address] [place] [phone] 04/05/2025 12:00 PM CDT Infusion Department of Oncology in [place], [place] [address] [place] [address] Harshad Perez M.D. [address] [place] [phone] 04/12/2025 11:40 AM CDT Appointment Department of Laboratory Medicine and Pathology, [facility] in [place], [place] [address] [place] [address] Harshad Perez M.D. [address] [place] [phone] 04/12/2025 1:30 PM CDT Office Visit Division of Hematology in [place], [place] [address] [place] [phone] Tr Hernandez M.D. [address] [place] [phone] 04/12/2025 3:30 PM CDT Infusion Department of Oncology in [place], [place] [address] [place] [address] Harshad Perez M.D. [address] [place] [phone] 04/19/2025 10:15 AM CDT Infusion Department of Oncology in [place], [place] [address] [place] [address] Harshad Perez M.D. [address] [place] [phone] 04/26/2025 10:10 AM CDT Appointment Department of Laboratory Medicine and Pathology, [facility] in [place], [place] [address] [place] [address] Harshad Perez M.D. [address] [place] [phone] 04/26/2025 11:00 AM CDT Nurse Only Division of Hematology in [place], [place] [address] [place] [phone] Harshad Perez M.D. [address] [place] [phone] 04/26/2025 12:00 PM CDT Infusion Department of Oncology in [place], [place] [address] [place] [address] Harshad Perez M.D. [address] [place] [phone] 04/26/2025 1:30 PM CDT Appointment Division of Pulmonary Medicine in [place], [place] [address] [place] [address] Harshad Perez M.D. [address] [place] [phone] Discharge Disposition: Home or Self Care 05/03/2025 10:15 AM CDT Infusion Department of Oncology in [place], [place] [address] [place] [phone] Harshad Perez M.D. [address] [place] [phone] 05/10/2025 9:40 AM PAPER SEALER Appointment Department of Laboratory Medicine and Pathology, [place], [place] [address] [place] [phone] Constantin López M.D. [address] [place] [phone] 05/10/2025 11:30 AM PAPER SEALER Office Visit Division of Hematology in [place], [place] [address] [place] [phone] Mely Hayden, ANY, C.N.P., D.N.P., M.S. [address] [place] [phone] 05/10/2025 1:00 PM PAPER SEALER Infusion Department of Oncology in [place], [place] [address] [place] [phone] Constantin López M.D. [address] [place] [phone] 05/17/2025 10:15 AM PAPER SEALER Infusion Department of Oncology in [address] [phone] Constantin López M.D. [address] [place] [phone] 05/24/2025 10:00 AM PAPER SEALER Appointment Department of Laboratory Medicine and Pathology, [facility] in [place], [place] [address] [place] [phone] Constantin López M.D. [address] [place] [phone] 05/24/2025 10:45 AM PAPER SEALER Appointment Division of Pulmonary Medicine in [place], [place] [address] [place] [phone] Harshad Perez M.D. [address] [place] [phone] Discharge Disposition: Home or Self Care 05/24/2025 12:00 PM PAPER SEALER Infusion Department of Oncology in [place], [place] [address] [place] [phone] Constantin López M.D. [address] [place] [phone] 05/31/2025 10:00 AM PAPER SEALER Infusion Department of Oncology in [place], [place] [address] [place] [phone] Constantin López M.D. [address] [place] [phone] documented as of this encounter Visit Diagnoses Not on filedocumented in this encounter Additional Health Concerns Infection Onset Date Last Indicated Resolved Time Protective Environment 01/27/2025 01/27/2025 documented as of this encounter
--- OUTSIDE RECORDS SUMMARY | 2025-03-02 17:41 | XMS_ITS | Encounter Summary ---
Author Organization [facility] Address [address] [place] [address] Care Team Providers Care Synthetic Chemist Name Role Phone Unavailable Primary Care Provider Unavailabl e Reason for Referral * Medication Prior Authorization - Authorized Specialty Diagnoses / Procedures Referred By Teresa carvalho Referred To Contact Diagnoses Multiple Myeloma Not Having Achieved Remission (HCC) Harshad Perez M.D. [address] [place] [address] Phone: tel:[phone] fax: Referral ID Status Reason Start Date Expiration Date V isits Requested Visits Authorized [id number] Authorized 01/09/2025 01/31/2026 1 1 * Outpatient (Routine) - Closed Specialty Diagnoses / Procedures Referred By Teresa carvalho Referred To Contact Diagnoses Multiple Myeloma Not Having Achieved Remission (HCC) Procedures Biopsy Bone Marrow, Unsedated IA DX BONE MARROW BX & ASPIR Harshad Perez M.D. [address] [place] [address] Phone: tel:[phone] fax: [facility] Referral ID Status Reason Start Date Expiration Date Visits Re quested Visits Authorized [id number] Closed 01/27/2025 04/29/2026 1 1 Encounter Details Date Type Department Care Team (Late st Contact Info) Description 01/27/2025 Orders Only Division of Hematology in [place], [place] [address] [place] [address] Harshad Perez M.D. [address] [place] [address] Multiple Myeloma Not Having Achieved Remission (HCC) [...] needed for daily living? No 01/27/2025 [facility] Utilities Answer Date Recorded In the past 12 months has e electric, gas, oil, or water company threatened to shut off services in your home? No 01/27/2025 Housing Stability Answer Date Recorded What is your living situation today? 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 [address] [place] [phone] 03/08/2025 8:45 AM CDT Infusion Department of Oncology in [place], [place] [address] [place] [phone] Constantin López M.D. [address] [place] [phone] 03/08/2025 10:30 AM CDT Comprehensive Visit Department of Vascular Medicine in [place], [place] [address] [place] [address] Vic Flores M.D. [address] [place] [phone] 03/11/2025 12:30 PM CDT Diagnostic Division of Pulmonary Medicine in [place], [place] [address] [place] [phone] Constantin López M.D. [address] [place] [phone] 03/11/2025 2:00 PM CDT Appointment Department of Vascular Medicine in [place], [place] [address] [place] [phone] Constantin López M.D. [address] [place] [phone] Discharge Disposition: Home or Self Care 03/15/2025 9:00 AM CDT Comprehensive Visit Department of Spine in [place], [place] [address] [place] [address] Hebert Francis APRN, C.N.P., M.S.N. [address] [place] [phone] 03/15/2025 12:30 PM CDT Appointment Department of Laboratory Medicine and Pathology, [facility] in [place], [place] [address] [place] [phone] Harshad Perez M.D. [address] [place] [phone] 03/15/2025 2:30 PM CDT Office Visit Division of Hematology in [place], [place] [address] [place] [phone] Mely Hayden APRN, Mavis.N.P., D.N.P., M.S. [address] [place] [phone] 03/15/2025 4:00 PM CDT Infusion Department of Oncology in [place], [place] [address] [place] [phone] Harshad Perez M.D. [address] [place] [phone] 03/16/2025 1:30 PM CDT Comprehensive Visit Division of Pulmonary Medicine in [place], [place] [address] [place] [phone] Morgan Peck M.D. [address] [place] [phone] 03/22/2025 11:10 AM CDT Appointment Department of Laboratory Medicine and Pathology, [facility], in [place], [place] [address] [place] [address] Harshad Perez M.D. [address] [place] [phone] 03/22/2025 1:00 PM CDT Infusion Department of Oncology in [place], [place] [address] [place] [phone] Harshad Perez M.D. [address] [place] [phone] 03/29/2025 9:15 AM CDT Appointment Division of Pulmonary Medicine in [place], [place] [address] [place] [address] Harshad Perez M.D. [address] [place] [phone] Discharge Disposition: Home or Self Care 03/29/2025 10:30 AM CDT Appointment Department of Laboratory Medicine and Pathology, [facility] in [place], [place] [address] [place] [phone] Harshad Perez M.D. [address] [place] [phone] 03/29/2025 11:15 AM CDT Nurse Only Division of Hematology in [place], [place] [address] [place] [address] Harshad Perez M.D. [address] [place] [phone] 03/29/2025 1:30 PM CDT Infusion Department of Oncology in [place], [place] [address] [place] [phone] Harshad Perez M.D. [address] [place] [phone] 04/05/2025 10:10 AM CDT Appointment Department of Laboratory Medicine and Pathology, [facility] in [place], [place] [address] [place] [phone] Harshad Perez M.D. [address] [place] [phone] 04/05/2025 12:00 PM CDT Infusion Department of Oncology in [place], [place] [address] [place] [address] Harshad Perez M.D. [address] [place] [phone] 04/12/2025 11:40 AM CDT Appointment Department of Laboratory Medicine and Pathology, [facility] in [place], [place] [address] [place] [address] Harshad Perez M.D. [address] [place] [phone] 04/12/2025 1:30 PM CDT Office Visit Division of Hematology in [place], [place] [address] [place] [address] Tr Hernandez M.D. [address] [place] [phone] 04/12/2025 3:30 PM CDT Infusion Department of Oncology in [place], [place] [address] [place] [address] Harshad Perez M.D. [address] [place] [phone] 04/19/2025 10:15 AM CDT Infusion Department of Oncology in [place], [place] [address] [place] [address] Harshad Perez M.D. [address] [place] [phone] 04/26/2025 10:10 AM CDT Appointment Department of Laboratory Medicine and Pathology, [facility], in [place], [place] [address] [place] [phone] Harshad Perez M.D. [address] [place] [phone] 04/26/2025 11:00 AM CDT Nurse Only Division of Hematology in [place], [place] [address] [place] [phone] Harshad Perez M.D. [address] [place] [phone] 04/26/2025 12:00 PM CDT Infusion Department of Oncology in [place], [place] [address] [place] [address] Harshad Perez M.D. [address] [place] [phone] 04/26/2025 1:30 PM CDT Appointment Division of Pulmonary Medicine in [place], [place] [address] [place] [phone] Harshad Perez M.D. [address] [place] [phone] Discharge Disposition: Home or Self Care 05/03/2025 10:15 AM CDT Infusion Department of Oncology in [place], [place] [address] [place] [phone] Harshad Perez M.D. [address] [place] [phone] 05/10/2025 9:40 AM DRY GOODS CLERK Appointment Department of Laboratory Medicine and Pathology, [facility], in [place], [place] [address] [place] [address] Constantin López M.D. [address] [place] [phone] 05/10/2025 11:30 AM DRY GOODS CLERK Office Visit Division of Hematology in [place], [place] [address] [place] [phone] Mely Hayden APRN, C.N.P., D.N.P., M.S. [address] [place] [phone] 05/10/2025 1:00 PM DRY GOODS CLERK Infusion Department of Oncology in [place], [place] [address] [place] [phone] Constantin López M.D. [address] [place] [phone] 05/17/2025 10:15 AM DRY GOODS CLERK Infusion Department of Oncology in [place], [place] [address] [place] [phone] Constantin López M.D. [address] [place] [phone] 05/24/2025 10:00 AM DRY GOODS CLERK Appointment Department of Laboratory Medicine and Pathology, [facility] in [place], [place] [address] [place] [phone] Constantin López M.D. [address] [place] [address] 05/24/2025 10:45 AM DRY GOODS CLERK Appointment Division of Pulmonary Medicine in [address] [phone] Harshad Perez M.D. [address] [place] [phone] Discharge Disposition: Home or Self Care 05/24/2025 12:00 PM DRY GOODS CLERK Infusion Department of Oncology in [address] [phone] Constantin López M.D. [address] [place] [address] 05/31/2025 10:00 AM DRY GOODS CLERK Infusion Department of Oncology in [place], [place] [address] [place] [address] Constantin López M.D. [address] [place] [address] documented as of this encounter Results * (ABNORMAL) CBC, Chemotherapy, No Alerts (02/08/2025 3:02 PM CDT) Hemoglobin 10.3(L) 13.2 - 16.6 g/dL 02/08/2025 3:11 PM CDT [facility] Platelet Count 255 135 - 317 x10(9)/L 02/08/2025 3:11 PM CDT [facility] Leukocytes 5.6 3.4 - 9.6 x10(9)/L 02/08/2025 3:11 PM CDT [facility] Neutrophils 2.68 1.56 - 6.45 x10(9)/L 02/08/2025 3:11 PM CDT [facility] Blood (Blood, Venous) 02/08/2025 3:02 PM CDT 02/08/2025 3:09 PM CDT Harshad Perez M.D. LAB BLOOD ADD-ON Final Result [facility] [address] [place] [address], [facility] METH [facility] [address] [place] [address] DHPM [facility] [address] [place] [address] * IA DX BONE MARROW BX & ASPIR (01/28/2025 1:00 PM CDT) Bone Marrow Narrative [facility] - 01/28/2025 1:00 PM CDT Jd Hester R.N. 01/28/2025 1:27 PM Biopsy Bone Marrow, Unsedated Performed by: Jd Hester R.N. Authorized by: Harshad Perez M.D. Care team members present 1. Jd Hester R.N. 2. Trupti Abrams PROCEDURE DETAILS Procedure: Bone Marrow biopsy and [...] L ORDERABLES Final Result [facility]AL NA * Type and Screen (with Reflex Antibody ID) (01/28/2025 11:56 AM CDT) ABORh O Pos Not applicable 01/28/2025 12:58 PM CDT ETRM Antibody Screen Negative Negative 01/28/2025 1:09 PM CDT ETRM Type & Screen Expiration 01/31/2025 23:59 01/28/2025 12:58 PM CDT ETRM Testing Location [place] DEFAULT 01/28/2025 12:28 PM CDT [facility] Blood (Blood, Venous) 01/28/2025 11:56 AM CDT 01/28/2025 12:28 PM CDT Harshad Perez M.D. LAB BLOOD BANK TEST ORD ERABLES Final Result [facility] [address] [place] [address], [facility] ETRM [facility] [address] [place] [address] documented in this encounter Visit Diagnoses Diagnosis Multiple Myeloma Not Having Achieved Remission (HCC)- Primary Multiple Myeloma Not Having Achieved Remission (HCC) Clinical Research Exam documented in this encounter Additional Health Concerns Infection Onset Date Last Indicated Resolved Time Protective Environment 01/27/2025 01/27/2025 documented as of this encounter
--- OUTSIDE RECORDS SUMMARY | 2025-03-02 17:41 | XMS_ITS | Encounter Summary ---
Author Organization [facility] Address [address] [place] [address] Care Team Providers Care Branch Officer Name Role Phone Unavailable Primary Care Provider Unavailabl e Encounter Details Date Type Department Care Team (Latest Contact Info) Description 01/27/2025 Clinical Communication Antony kunz [facility] in [place], [place] [address] [place] [address] Harshad Perez M.D. [address] [place] [address] Social History Tobacco Use Types Packs/Day Years [...] for daily living? No 01/27/2025 [facility] Utilities Answer Date Recorded In the past 12 months has th e electric, gas, oil, or water company threatened to shut off services in your home? No 01/27/2025 Housing Stability Answer Date Recorded What is your living situation today? 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 [address] [place] [phone] 03/08/2025 8:45 AM CDT Infusion Department of Oncology in [place], [place] [address] [place] [phone] Constantin López M.D. [address] [place] [phone] 03/08/2025 10:30 AM CDT Comprehensive Visit Department of Vascular Medicine in [place], [place] [address] [place] [phone] Vic Flores M.D. [address] [place] [phone] 03/11/2025 12:30 PM CDT Diagnostic Division of Pulmonary Medicine in [place], [place] [address] [place] [phone] Constantin López M.D. [address] [place] [phone] 03/11/2025 2:00 PM CDT Appointment Department of Vascular Medicine in [place], [place] [address] [place] [phone] Constantin López M.D. [address] [place] [phone] Discharge Disposition: Home or Self Care 03/15/2025 9:00 AM CDT Comprehensive Visit Department of Spine in [place], [place] [address] [place] [phone] Hebert Francis APRN, C.N.P., M.S.N. [address] [place] [phone] 03/15/2025 12:30 PM CDT Appointment Department of Laboratory Medicine and Pathology, [facility] in [place], [place] [address] [place] [phone] Harshad Perez M.D. [address] [place] [phone] 03/15/2025 2:30 PM CDT Office Visit Division of Hematology in [place], [place] [address] [place] [phone] Mely Hayden APRN, C.N.P., D.N.P., M.S. [address] [place] [phone] 03/15/2025 4:00 PM CDT Infusion Department of Oncology in [place], [place] [address] [place] [phone] Harshad Perez M.D. [address] [place] [phone] 03/16/2025 1:30 PM CDT Comprehensive Visit Division of Pulmonary Medicine in [place], [place] [address] [place] [address] Morgan Peck M.D. [address] [place] [phone] 03/22/2025 11:10 AM CDT Appointment Department of Laboratory Medicine and Pathology, [facility] in [place], [place] [address] [place] [address] Harshad Perez M.D. [address] [place] [phone] 03/22/2025 1:00 PM CDT Infusion Department of Oncology in [place], [place] [address] [place] [address] Harshad Perez M.D. [address] [place] [phone] 03/29/2025 9:15 AM CDT Appointment Division of Pulmonary Medicine in [place], [place] [address] [place] [address] Harshad Perez M.D. [address] [place] [phone] Discharge Disposition: Home or Self Care 03/29/2025 10:30 AM CDT Appointment Department of Laboratory Medicine and Pathology, [facility], in [place], [place] [address] [place] [address] Harshad Perez M.D. [address] [place] [phone] 03/29/2025 11:15 AM CDT Nurse Only Division of Hematology in [place], [place] [address] [place] [phone] Harshad Perez M.D. [address] [place] [phone] 03/29/2025 1:30 PM CDT Infusion Department of Oncology in [place], [place] [address] [place] [address] Harshad Perez M.D. [address] [place] [phone] 04/05/2025 10:10 AM CDT Appointment Department of Laboratory Medicine and Pathology, [facility] in [place], [place] [address] [place] [address] Harshad Perez M.D. [address] [place] [phone] 04/05/2025 12:00 PM CDT Infusion Department of Oncology in [place], [place] [address] [place] [address] Harshad Perez M.D. [address] [place] [phone] 04/12/2025 11:40 AM CDT Appointment Department of Laboratory Medicine and Pathology, [facility] in [place], [place] [address] [place] [address] Harshad Perez M.D. [address] [place] [phone] 04/12/2025 1:30 PM CDT Office Visit Division of Hematology in [place], [place] [address] [place] [phone] Tr Hernandez M.D. [address] [place] [phone] 04/12/2025 3:30 PM CDT Infusion Department of Oncology in [place], [place] [address] [place] [address] Harshad Perez M.D. [address] [place] [phone] 04/19/2025 10:15 AM CDT Infusion Department of Oncology in [place], [place] [address] [place] [phone] Harshad Perez M.D. [address] [place] [phone] 04/26/2025 10:10 AM CDT Appointment Department of Laboratory Medicine and Pathology, [facility] in [place], [place] [address] [place] [address] Harshad Perez M.D. [address] [place] [phone] 04/26/2025 11:00 AM CDT Nurse Only Division of Hematology in [place], [place] [address] [place] [phone] Harshad Perez M.D. [address] [place] [phone] 04/26/2025 12:00 PM CDT Infusion Department of Oncology in [place], [place] [address] [place] [address] Harshad Perez M.D. [address] [place] [phone] 04/26/2025 1:30 PM CDT Appointment Division of Pulmonary Medicine in [place], [place] [address] [place] [phone] Harshad Perez M.D. [address] [place] [phone] Discharge Disposition: Home or Self Care 05/03/2025 10:15 AM CDT Infusion Department of Oncology in [place], [place] [address] [place] [phone] Harshad Perez M.D. [address] [place] [phone] 05/10/2025 9:40 AM ICT TEACHER Appointment Department of Laboratory Medicine and Pathology, [place], [place] [address] [place] [phone] Constantin López M.D. [address] [place] [phone] 05/10/2025 11:30 AM ICT TEACHER Office Visit Division of Hematology in [place], [place] [address] [place] [phone] Mely Hayden APRN, C.N.P., D.N.P., M.S. [address] [place] [phone] 05/10/2025 1:00 PM ICT TEACHER Infusion Department of Oncology in [address] [phone] Constantin López M.D. [address] [place] [phone] 05/17/2025 10:15 AM ICT TEACHER Infusion Department of Oncology in [place], [place] [address] [place] [phone] Constantin López M.D. [address] [place] [phone] 05/24/2025 10:00 AM ICT TEACHER Appointment Department of Laboratory Medicine and Pathology, [facility] in [place], [place] [address] [place] [phone] Constantin López M.D. [address] [place] [phone] 05/24/2025 10:45 AM ICT TEACHER Appointment Division of Pulmonary Medicine in [place], [place] [address] [place] [phone] Harshad Perez M.D. [address] [place] [phone] Discharge Disposition: Home or Self Care 05/24/2025 12:00 PM ICT TEACHER Infusion Department of Oncology in [place], [place] [address] [place] [address] Constantin López M.D. [address] [place] [phone] 05/31/2025 10:00 AM ICT TEACHER Infusion Department of Oncology in [place], [place] [address] [place] [phone] Constantin López M.D. [address] [place] [phone] documented as of this encounter Visit Diagnoses Diagnosis Multiple Myeloma Not Having Achieved Remission (HCC)- Primary documented in this encounter Additional Health Concerns Infection Onset Date Last Indicated Resolved Time Protective Environment 01/27/2025 01/27/2025 documented as of this encounter
--- OUTSIDE RECORDS SUMMARY | 2025-03-02 17:43 | XMS_ITS ---
Author Organization [facility] Address [address] [place] [id number] Care Team Providers Care Transfer Car Operator Name Role Phone Unavailable Primary Care Provider Unavailabl e Active Problems * This document contains information received from the source organization and may not represent a complete record from that organization. Problem Noted Date Diagnosed Date Multiple Myeloma Not Having Achieved Remission 0 01/27/2025 Current Treatment and Therapy Plans pentamidine (Nebupent) Inhalation Every 4 Weeks at Least 28 Days Apart* Plan Start Date:02/03/2025 Plan Provider:Harshad Perez M.D. Linked Problems Multiple Myeloma Not Having Achieved Remission (HCC) Treatment Medications No medications scheduled. [facility] [id number] Induction ( Daratumumab (Subcutaneous) / Bortezomib / Iberdomide / dexAMETHasone )* Plan Start Date:02/14/2025 Plan Provider:Constantin López M.D. Linked Problems Multiple Myeloma Not Having Achieved Remission (HCC) Treatment Medications Current Day (Day 2 2, Cycle 1 - Planned for 03/08/2025) Next Day (Day 1, Cycle 2 - Planned for 03/15/2025) bortezomib (Velcade)daratumumab-hyaluron idase-fihj (Darzalex Faspro)Research IRB [id number] iberdomide (CC-220) bortezomib injection 2.5 mg (Velcade)daratumumab-hyaluro nidase-fihj injection 1,800 mg (Darzalex Faspro) bortezomib injection 2.5 mg (Velcade)daratumumab-hyaluro nidase-fihj injection 1,800 mg (Darzalex Faspro)Research IRB [id number] iberdomide (CC-220) 0.75 mg capsule Vascular Access Patency - Peripheral Intravenous Catheter and Rapid Infusion Catheter* Plan Start Date:02/08/2025 Linked Problems Multiple Myeloma Not Having Achieved Remission (HCC) Treatment Medications No medications scheduled. Zoledronic Acid ( ZOMETA ) Monthly - for Bone Metastasis* Plan Start Date: 03/01/2025 Plan Provider:Harshad Perez M.D. Linked Problems Multiple Myeloma Not Having Achieved Remission (HCC) Treatment Medications No medications scheduled. Past Treatment and Therapy Plans Hematology / Oncology Treatment 1 Plan Name Start Date Discontinue Date Treatment Medications Discontinue Reason Plan Provider Cycles [facility] [id number] Induction ( Daratumumab (Subcutaneous) / Bortezomib / Iberdomide / dexAMETHasone ) 02/16/20 25 02/10/2025 bortezomib (Velcade)myra tumumab-hyalu ronidase-fihj (Darzalex Faspro)Resear IRB [id number] iberdomide (CC-220) Investigational Study Reason Constantin López M.D. Treatment not started Daratumumab (Subcutaneous) RVD (Lenalidomide / Bortezomib / dexAMETHasone) (28 day cycles) 01/29/20 25 02/10/2025 bortezomib (Velcade)myra tumumab-hyalu ronidase-fihj (Darzalex Faspro)lenali domide (Revlimid) Investigational Study Reason Harshad Perez M.D. 1 of 7 cycles started
--- OUTSIDE RECORDS SUMMARY | 2025-03-02 17:44 | XMS_ITS | Encounter Summary ---
Author Organization [facility] Address [address] [place] [address] Care Team Providers Care Veterinary Nurse Name Role Phone Unavailable Primary Care Provider Unavailabl e Encounter Details Date Type Department Care Team (Late Contact Info) Description 01/28/2025 Orders Only Division of Hematology in [place], [place] [address] [place] [address] Harshad Perez M.D. [address] [place] [phone] Social History Tobacco Use Types Packs/Day Years [...] things needed for daily living? No 01/27/2025 [facility] Utilities Answer Date Recorded In the past 12 months has th e electric, gas, oil, or water company threatened to shut off services in your home? No 01/27/2025 Housing Stability Answer Date Recorded What is your living situation today? I have a [facility] place to live 01/27/2025 Sex and Gender Information Value Date Recorded Sex Assigned at Male 01/27/2025 2:34 PM CDT Legal Sex Male 6:33 AM ASSURANCE MANAGER INSURANCE Gender Identity Male 01/27/2025 2:34 PM CDT Sexual Orientation Straight 01/27/2025 2: 34 PM CDT documented as of this encounter Plan of Treatment Upcoming Encounters Date Type Department Care Team (Latest Contact Info) Description 03/08/2025 8:00 AM CDT Appointment Department of Laboratory Medicine and Pathology, [facility] in [place], [place] [address] [place] [address] Constantin López M.D. [address] [place] [phone] 03/08/2025 8:45 AM CDT Infusion Department of Oncology in [place], [place] [address] [place] [address] Constantin López M.D. [address] [place] [phone] 03/08/2025 10:30 AM CDT Comprehensive Visit Department of Vascular Medicine in [place], [place] [address] [place] [address] Vic Flores M.D. [address] [place] [phone] 03/11/2025 12:30 PM CDT Diagnostic Division of Pulmonary Medicine in [place], [place] [address] [place] [phone] Constantin López M.D. [address] [place] [phone] 03/11/2025 2:00 PM CDT Appointment Department of Vascular Medicine in [place], [place] [address] [place] [address] Constantin López M.D. [address] [place] [phone] Discharge Disposition: Home or Self Care 03/15/2025 9:00 AM CDT Comprehensive Visit Department of Spine in [place], [place] [address] [place] [phone] Hebert Francis APRN, C.N.P., M.S.N. [address] [place] [phone] 03/15/2025 12:30 PM CDT Appointment Department of Laboratory Medicine and Pathology, [facility] in [place], [place] [address] [place] [phone] Harshad Perez M.D. [address] [place] [phone] 03/15/2025 2:30 PM CDT Office Visit Division of Hematology in [place], [place] [address] [place] [phone] Mely Hayden APRN, C.N.P., D.N.P., M.S. [address] [place] [phone] 03/15/2025 4:00 PM CDT Infusion Department of Oncology in [place], [place] [address] [place] [phone] Harshad Perez M.D. [address] [place] [phone] 03/16/2025 1:30 PM CDT Comprehensive Visit Division of Pulmonary Medicine in [place], [place] [address] [place] [phone] Morgan Peck M.D. [address] [place] [phone] 03/22/2025 11:10 AM CDT Appointment Department of Laboratory Medicine and Pathology, [facility] in [place], [place] [address] [place] [address] Harshad Perez M.D. [address] [place] [phone] 03/22/2025 1:00 PM CDT Infusion Department of Oncology in [place], [place] [address] [place] [address] Harshad Perez M.D. [address] [place] [phone] 03/29/2025 9:15 AM CDT Appointment Division of Pulmonary Medicine in [place], [place] [address] [place] [phone] Harshad Perez M.D. [address] [place] [phone] Discharge Disposition: Home or Self Care 03/29/2025 10:30 AM CDT Appointment Department of Laboratory Medicine and Pathology, [facility], in [place], [place] [address] [place] [address] Harshad Perez M.D. [address] [place] [phone] 03/29/2025 11:15 AM CDT Nurse Only Division of Hematology in [place], [place] [address] [place] [address] Harshad Perez M.D. [address] [place] [phone] 03/29/2025 1:30 PM CDT Infusion Department of Oncology in [place], [place] [address] [place] [address] Harshad Perez M.D. [address] [place] [phone] 04/05/2025 10:10 AM CDT Appointment Department of Laboratory Medicine and Pathology, [facility] in [place], [place] [address] [place] [address] Harshad Perez M.D. [address] [place] [phone] 04/05/2025 12:00 PM CDT Infusion Department of Oncology in [place], [place] [address] [place] [address] Harshad Perez M.D. [address] [place] [phone] 04/12/2025 11:40 AM CDT Appointment Department of Laboratory Medicine and Pathology, [facility] in [place], [place] [address] [place] [address] Harshad Perez M.D. [address] [place] [phone] 04/12/2025 1:30 PM CDT Office Visit Division of Hematology in [place], [place] [address] [place] [phone] Tr Hernandez M.D. [address] [place] [phone] 04/12/2025 3:30 PM CDT Infusion Department of Oncology in [place], [place] [address] [place] [address] Harshad Perez M.D. [address] [place] [phone] 04/19/2025 10:15 AM CDT Infusion Department of Oncology in [place], [place] [address] [place] [address] Harshad Perez M.D. [address] [place] [phone] 04/26/2025 10:10 AM CDT Appointment Department of Laboratory Medicine and Pathology, [facility] in [place], [place] [address] [place] [address] Harshad Perez M.D. [address] [place] [phone] 04/26/2025 11:00 AM CDT Nurse Only Division of Hematology in [place], [place] [address] [place] [phone] Harshad Perez M.D. [address] [place] [phone] 04/26/2025 12:00 PM CDT Infusion Department of Oncology in [place], [place] [address] [place] [address] Harshad Perez M.D. [address] [place] [phone] 04/26/2025 1:30 PM CDT Appointment Division of Pulmonary Medicine in [place], [place] [address] [place] [address] Harshad Perez M.D. [address] [place] [phone] Discharge Disposition: Home or Self Care 05/03/2025 10:15 AM CDT Infusion Department of Oncology in [place], [place] [address] [place] [phone] Harshad Perez M.D. [address] [place] [phone] 05/10/2025 9:40 AM ASSURANCE MANAGER INSURANCE Appointment Department of Laboratory Medicine and Pathology, [place], [place] [address] [place] [phone] Constantin López M.D. [address] [place] [phone] 05/10/2025 11:30 AM ASSURANCE MANAGER INSURANCE Office Visit Division of Hematology in [place], [place] [address] [place] [phone] Mely Hayden, ANY, C.N.P., D.N.P., M.S. [address] [place] [phone] 05/10/2025 1:00 PM ASSURANCE MANAGER INSURANCE Infusion Department of Oncology in [place], [place] [address] [place] [phone] Constantin López M.D. [address] [place] [phone] 05/17/2025 10:15 AM ASSURANCE MANAGER INSURANCE Infusion Department of Oncology in [place], [place] [address] [place] [phone] Constantin López M.D. [address] [place] [phone] 05/24/2025 10:00 AM ASSURANCE MANAGER INSURANCE Appointment Department of Laboratory Medicine and Pathology, [facility] in [place], [place] [address] [place] [phone] Constantin López M.D. [address] [place] [phone] 05/24/2025 10:45 AM ASSURANCE MANAGER INSURANCE Appointment Division of Pulmonary Medicine in [place], [place] [address] [place] [phone] Harshad Perez M.D. [address] [place] [phone] Discharge Disposition: Home or Self Care 05/24/2025 12:00 PM ASSURANCE MANAGER INSURANCE Infusion Department of Oncology in [place], [place] [address] [place] [phone] Constantin López M.D. [address] [place] [phone] 05/31/2025 10:00 AM ASSURANCE MANAGER INSURANCE Infusion Department of Oncology in [place], [place] [address] [place] [phone] Constantin López M.D. [address] [place] [phone] documented as of this encounter Visit Diagnoses Not on filedocumented in this encounter Additional Health Concerns Infection Onset Date Last Indicated Resolved Time Protective Environment 01/27/2025 01/27/2025 documented as of this encounter
--- OUTSIDE RECORDS SUMMARY | 2025-03-02 17:44 | XMS_ITS | Encounter Summary ---
Author Organization [facility] Address [address] [place] [address] Care Team Providers Care Medical Assembler Name Role Phone Unavailable Primary Care Provider Unavailabl e Encounter Details Date Type Department Care Team (Late Contact Info) Description 01/28/2025 Clinical Communication Division of Hematology in [place], [place] [address] [place] [address] Harshad Perez M.D. [address] [place] [address] [phone] Social History Tobacco Use Types Packs/Day Years [...] for daily living? No 01/27/2025 [facility] Utilities Answer Date Recorded In the past 12 months has th e electric, gas, oil, or water company threatened to shut off services in your home? No 01/27/2025 Housing Stability Answer Date Recorded What is your living situation today? I have a [facility] place to live 01/27/2025 Sex and Gender Information Value Date Recorded Sex Assigned at Male 01/27/2025 2:34 PM CDT Legal Sex Male 6:33 AM EDUCATION PROGRAM SPECIALIST Gender Identity Male 01/27/2025 2:34 PM CDT Sexual Orientation Straight 01/27/2025 2: 34 PM CDT documented as of this encounter Plan of Treatment Upcoming Encounters Date Type Department Care Team (Latest Contact Info) Description 03/08/2025 8:00 AM CDT Appointment Department of Laboratory Medicine and Pathology, [facility] in [place], [place] [address] [place] [address] Constantin López M.D. [address] [place] [phone] 03/08/2025 8:45 AM CDT Infusion Department of Oncology in [place], [place] [address] [place] [address] Constantin López M.D. [address] [place] [phone] 03/08/2025 10:30 AM CDT Comprehensive Visit Department of Vascular Medicine in [place], [place] [address] [place] [address] Vic Flores M.D. [address] [place] [phone] 03/11/2025 12:30 PM CDT Diagnostic Division of Pulmonary Medicine in [place], [place] [address] [place] [phone] Constantin López M.D. [address] [place] [phone] 03/11/2025 2:00 PM CDT Appointment Department of Vascular Medicine in [place], [place] [address] [place] [address] Constantin López M.D. [address] [place] [phone] Discharge Disposition: Home or Self Care 03/15/2025 9:00 AM CDT Comprehensive Visit Department of Spine in [place], [place] [address] [place] [phone] Hebert Francis APRN, C.N.P., M.S.N. [address] [place] [phone] 03/15/2025 12:30 PM CDT Appointment Department of Laboratory Medicine and Pathology, [facility] in [place], [place] [address] [place] [phone] Harshad Perez M.D. [address] [place] [phone] 03/15/2025 2:30 PM CDT Office Visit Division of Hematology in [place], [place] [address] [place] [phone] Mely Hayden APRN, C.N.P., D.N.P., M.S. [address] [place] [phone] 03/15/2025 4:00 PM CDT Infusion Department of Oncology in [place], [place] [address] [place] [phone] Harshad Perez M.D. [address] [place] [phone] 03/16/2025 1:30 PM CDT Comprehensive Visit Division of Pulmonary Medicine in [place], [place] [address] [place] [phone] Morgan Peck M.D. [address] [place] [phone] 03/22/2025 11:10 AM CDT Appointment Department of Laboratory Medicine and Pathology, [facility] in [place], [place] [address] [place] [address] Harshad Perez M.D. [address] [place] [phone] 03/22/2025 1:00 PM CDT Infusion Department of Oncology in [place], [place] [address] [place] [address] Harshad Perez M.D. [address] [place] [phone] 03/29/2025 9:15 AM CDT Appointment Division of Pulmonary Medicine in [place], [place] [address] [place] [phone] Harshad Perez M.D. [address] [place] [phone] Discharge Disposition: Home or Self Care 03/29/2025 10:30 AM CDT Appointment Department of Laboratory Medicine and Pathology, [facility], in [place], [place] [address] [place] [address] Harshad Perez M.D. [address] [place] [phone] 03/29/2025 11:15 AM CDT Nurse Only Division of Hematology in [place], [place] [address] [place] [address] Harshad Perez M.D. [address] [place] [phone] 03/29/2025 1:30 PM CDT Infusion Department of Oncology in [place], [place] [address] [place] [address] Harshad Perez M.D. [address] [place] [phone] 04/05/2025 10:10 AM CDT Appointment Department of Laboratory Medicine and Pathology, [facility] in [place], [place] [address] [place] [address] Harshad Perez M.D. [address] [place] [phone] 04/05/2025 12:00 PM CDT Infusion Department of Oncology in [place], [place] [address] [place] [address] Harshad Perez M.D. [address] [place] [phone] 04/12/2025 11:40 AM CDT Appointment Department of Laboratory Medicine and Pathology, [facility] in [place], [place] [address] [place] [address] Harshad Perez M.D. [address] [place] [phone] 04/12/2025 1:30 PM CDT Office Visit Division of Hematology in [place], [place] [address] [place] [phone] Tr Hernandez M.D. [address] [place] [phone] 04/12/2025 3:30 PM CDT Infusion Department of Oncology in [place], [place] [address] [place] [address] Harshad Perez M.D. [address] [place] [phone] 04/19/2025 10:15 AM CDT Infusion Department of Oncology in [place], [place] [address] [place] [address] Harshad Perez M.D. [address] [place] [phone] 04/26/2025 10:10 AM CDT Appointment Department of Laboratory Medicine and Pathology, [facility] in [place], [place] [address] [place] [address] Harshad Perez M.D. [address] [place] [phone] 04/26/2025 11:00 AM CDT Nurse Only Division of Hematology in [place], [place] [address] [place] [phone] Harshad Perez M.D. [address] [place] [phone] 04/26/2025 12:00 PM CDT Infusion Department of Oncology in [place], [place] [address] [place] [address] Harshad Perez M.D. [address] [place] [phone] 04/26/2025 1:30 PM CDT Appointment Division of Pulmonary Medicine in [place], [place] [address] [place] [address] Harshad Perez M.D. [address] [place] [phone] Discharge Disposition: Home or Self Care 05/03/2025 10:15 AM CDT Infusion Department of Oncology in [place], [place] [address] [place] [phone] Harshad Perez M.D. [address] [place] [phone] 05/10/2025 9:40 AM EDUCATION PROGRAM SPECIALIST Appointment Department of Laboratory Medicine and Pathology, [place], [place] [address] [place] [phone] Constantin López M.D. [address] [place] [phone] 05/10/2025 11:30 AM EDUCATION PROGRAM SPECIALIST Office Visit Division of Hematology in [place], [place] [address] [place] [phone] Mely Hayden, ANY, C.N.P., D.N.P., M.S. [address] [place] [phone] 05/10/2025 1:00 PM EDUCATION PROGRAM SPECIALIST Infusion Department of Oncology in [place], [place] [address] [place] [phone] Constantin López M.D. [address] [place] [phone] 05/17/2025 10:15 AM EDUCATION PROGRAM SPECIALIST Infusion Department of Oncology in [place], [place] [address] [place] [phone] Constantin López M.D. [address] [place] [phone] 05/24/2025 10:00 AM EDUCATION PROGRAM SPECIALIST Appointment Department of Laboratory Medicine and Pathology, [facility] in [place], [place] [address] [place] [phone] Constantin López M.D. [address] [place] [phone] 05/24/2025 10:45 AM EDUCATION PROGRAM SPECIALIST Appointment Division of Pulmonary Medicine in [place], [place] [address] [place] [phone] Harshad Perez M.D. [address] [place] [phone] Discharge Disposition: Home or Self Care 05/24/2025 12:00 PM EDUCATION PROGRAM SPECIALIST Infusion Department of Oncology in [place], [place] [address] [place] [phone] Constantin López M.D. [address] [place] [phone] 05/31/2025 10:00 AM EDUCATION PROGRAM SPECIALIST Infusion Department of Oncology in [place], [place] [address] [place] [phone] Constantin López M.D. [address] [place] [phone] documented as of this encounter Visit Diagnoses Not on filedocumented in this encounter Additional Health Concerns Infection Onset Date Last Indicated Resolved Time Protective Environment 01/27/2025 01/27/2025 documented as of this encounter
--- OUTSIDE RECORDS SUMMARY | 2025-03-02 17:44 | XMS_ITS | Encounter Summary ---
Author Organization [facility] Address [address] [place] [address] Care Team Providers Care Project Management Professional Name Role Phone Unavailable Primary Care Provider Unavailabl e Encounter Details Date Type Department Care Team (Late Contact Info) Description 01/31/2025 Orders Only Division of Hematology in [place], [place] [address] [place] [phone] Harshad Perez M.D. [address] [place] [phone] Multiple Myeloma Not Having Achieved Remission (HCC) [...] needed for daily living? No 01/27/2025 [facility] Utilities Answer Date Recorded In the past 12 months has th e electric, gas, oil, or water company threatened to shut off services in your home? No 01/27/2025 Housing Stability Answer Date Recorded What is your living situation today? I have a [facility] place to live 01/27/2025 Sex and Gender Information Value Date Recorded Sex Assigned at Male 01/27/2025 2:34 PM CDT Legal Sex Male 6:33 AM SINK CUTTER Gender Identity Male 01/27/2025 2:34 PM CDT Sexual Orientation Straight 01/27/2025 2: 34 PM CDT documented as of this encounter Plan of Treatment Upcoming Encounters Date Type Department Care Team (Latest Contact Info) Description 03/08/2025 8:00 AM CDT Appointment Department of Laboratory Medicine and Pathology, [facility] in [place], [place] [address] [place] [address] Constantin López M.D. [address] [place] [phone] 03/08/2025 8:45 AM CDT Infusion Department of Oncology in [place], [place] [address] [place] [address] Constantin López M.D. [address] [place] [phone] 03/08/2025 10:30 AM CDT Comprehensive Visit Department of Vascular Medicine in [place], [place] [address] [place] [address] Vic Flores M.D. [address] [place] [phone] 03/11/2025 12:30 PM CDT Diagnostic Division of Pulmonary Medicine in [place], [place] [address] [place] [phone] Constantin López M.D. [address] [place] [phone] 03/11/2025 2:00 PM CDT Appointment Department of Vascular Medicine in [place], [place] [address] [place] [phone] Constantin López M.D. [address] [place] [phone] Discharge Disposition: Home or Self Care 03/15/2025 9:00 AM CDT Comprehensive Visit Department of Spine in [place], [place] [address] [place] [phone] Hebert Francis APRN, C.N.P., M.S.N. [address] [place] [phone] 03/15/2025 12:30 PM CDT Appointment Department of Laboratory Medicine and Pathology, [facility] in [place], [place] [address] [place] [address] Harshad Perez M.D. [address] [place] [phone] 03/15/2025 2:30 PM CDT Office Visit Division of Hematology in [address] [phone] Mely Hayden APRN, C.N.P., D.N.P., M.S. [address] [place] [phone] 03/15/2025 4:00 PM CDT Infusion Department of Oncology in [place], [place] [address] [place] [address] Harshad Perez M.D. [address] [place] [phone] 03/16/2025 1:30 PM CDT Comprehensive Visit Division of Pulmonary Medicine in [place], [place] [address] [place] [phone] Morgan Peck M.D. [address] [place] [phone] 03/22/2025 11:10 AM CDT Appointment Department of Laboratory Medicine and Pathology, [facility] in [place], [place] [address] [place] [address] Harshad Perez M.D. [address] [place] [phone] 03/22/2025 1:00 PM CDT Infusion Department of Oncology in [place], [place] [address] [place] [address] Harshad Perez M.D. [address] [place] [phone] 03/29/2025 9:15 AM CDT Appointment Division of Pulmonary Medicine in [place], [place] [address] [place] [address] Harshad Perez M.D. [address] [place] [phone] Discharge Disposition: Home or Self Care 03/29/2025 10:30 AM CDT Appointment Department of Laboratory Medicine and Pathology, [facility], in [place], [place] [address] [place] [phone] Harshad Perez M.D. [address] [place] [phone] 03/29/2025 11:15 AM CDT Nurse Only Division of Hematology in [place], [place] [address] [place] [address] [place] [address] Harshad Perez M.D. [address] [place] [phone] 03/29/2025 1:30 PM CDT Infusion Department of Oncology in [place], [place] [address] [place] [address] Harshad Perez M.D. [address] [place] [phone] 04/05/2025 10:10 AM CDT Appointment Department of Laboratory Medicine and Pathology, [facility] in [place], [place] [address] [place] [address] Harshad Perez M.D. [address] [place] [phone] 04/05/2025 12:00 PM CDT Infusion Department of Oncology in [place], [place] [address] [place] [address] Harshad Perez M.D. [address] [place] [phone] 04/12/2025 11:40 AM CDT Appointment Department of Laboratory Medicine and Pathology, [facility] in [place], [place] [address] [place] [address] Harshad Perez M.D. [address] [place] [phone] 04/12/2025 1:30 PM CDT Office Visit Division of Hematology in [place], [place] [address] [place] [address] Tr Hernandez M.D. [address] [place] [phone] 04/12/2025 3:30 PM CDT Infusion Department of Oncology in [place], [place] [address] [place] [address] Harshad Perez M.D. [address] [place] [phone] 04/19/2025 10:15 AM CDT Infusion Department of Oncology in [place], [place] [address] [place] [address] Harshad Perez M.D. [address] [place] [phone] 04/26/2025 10:10 AM CDT Appointment Department of Laboratory Medicine and Pathology, [facility] in [place], [place] [address] [place] [phone] Harshad Perez M.D. [address] [place] [phone] 04/26/2025 11:00 AM CDT Nurse Only Division of Hematology in [place], [place] [address] [place] [address] Harshad Perez M.D. [address] [place] [phone] 04/26/2025 12:00 PM CDT Infusion Department of Oncology in [place], [place] [address] [place] [phone] Harshad Perez M.D. [address] [place] [phone] 04/26/2025 1:30 PM CDT Appointment Division of Pulmonary Medicine in [place], [place] [address] [place] [phone] Harshad Perez M.D. [address] [place] [phone] Discharge Disposition: Home or Self Care 05/03/2025 10:15 AM CDT Infusion Department of Oncology in [place], [place] [address] [place] [phone] Harshad Perez M.D. [address] [place] [phone] 05/10/2025 9:40 AM SINK CUTTER Appointment Department of Laboratory Medicine and Pathology, [place], [place] [address] [place] [phone] Constantin López M.D. [address] [place] [phone] 05/10/2025 11:30 AM SINK CUTTER Office Visit Division of Hematology in [place], [place] [address] [place] [phone] Mely Hayden APRN, C.N.P., D.N.P., M.S. [address] [place] [phone] 05/10/2025 1:00 PM SINK CUTTER Infusion Department of Oncology in [place], [place] [address] [place] [phone] Constantin López M.D. [address] [place] [phone] 05/17/2025 10:15 AM SINK CUTTER Infusion Department of Oncology in [place], [place] [address] [place] [phone] Constantin López M.D. [address] [place] [phone] 05/24/2025 10:00 AM SINK CUTTER Appointment Department of Laboratory Medicine and Pathology, [facility] in [place], [place] [address] [place] [phone] Constantin López M.D. [address] [place] [phone] 05/24/2025 10:45 AM SINK CUTTER Appointment Division of Pulmonary Medicine in [place], [place] [address] [place] [address] Harshad Perez M.D. [address] [place] [phone] Discharge Disposition: Home or Self Care 05/24/2025 12:00 PM SINK CUTTER Infusion Department of Oncology in [place], [place] [address] [place] [address] Constantin López M.D. [address] [place] [phone] 05/31/2025 10:00 AM SINK CUTTER Infusion Department of Oncology in [place], [place] [address] [place] [address] Constantin López M.D. [address] [place] [phone] documented as of this encounter Visit Diagnoses Diagnosis Multiple Myeloma Not Having Achieved Remission (HCC)- Primary documented in this encounter Additional Health Concerns Infection Onset Date Last Indicated Resolved Time Protective Environment 01/27/2025 01/27/2025 documented as of this encounter
--- OUTSIDE RECORDS SUMMARY | 2025-03-02 17:44 | XMS_ITS | Encounter Summary ---
Author Organization [facility] Address [address] [place] [address] Care Team Providers Care Rn Endocrinology Name Role Phone Unavailable Primary Care Provider Unavailabl e Encounter Details Date Type Department Care Team (Late st Contact Info) Description 01/31/2025 Orders Only Pharmacy Prior Auth DONNA [phone] Mely Heller [address] [place] [address] Social History Tobacco Use Types Packs/Day Years [...] needed for daily living? No 01/27/2025 [facility] Utilities Answer Date Recorded In the past 12 months has th e electric, gas, oil, or water company threatened to shut off services in your home? No 01/27/2025 Housing Stability Answer Date Recorded What is your living situation today? 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, in [place], [place] [address] [place] [phone] Constantin López M.D. [address] [place] [phone] 03/08/2025 8:45 AM CDT Infusion Department of Oncology in [place], [place] [address] [place] [phone] Constantin López M.D. [address] [place] [phone] 03/08/2025 10:30 AM CDT Comprehensive Visit Department of Vascular Medicine in [place], [place] [address] [place] [phone] Vic Flores M.D. [address] [place] [phone] 03/11/2025 12:30 PM CDT Diagnostic Division of Pulmonary Medicine in [place], [place] [address] [place] [phone] Constantin López M.D. [address] [place] [phone] 03/11/2025 2:00 PM CDT Appointment Department of Vascular Medicine in [place], [place] [address] [place] [address] Constantin López M.D. [address] [place] [phone] Discharge Disposition: Home or Self Care 03/15/2025 9:00 AM CDT Comprehensive Visit Department of Spine in [place], [place] [address] [place] [address] Hebert Francsi APRN, C.N.P., M.S.N. [address] [place] [phone] 03/15/2025 12:30 PM CDT Appointment Department of Laboratory Medicine and Pathology, [facility] in [place], [place] [address] [place] [phone] Harshad Perez M.D. [address] [place] [phone] 03/15/2025 2:30 PM CDT Office Visit Division of Hematology in [place], [place] [address] [place] [phone] Mely Hayden APRN, C.N.P., D.N.P., M.S. [address] [place] [phone] 03/15/2025 4:00 PM CDT Infusion Department of Oncology in [place], [place] [address] [place] [phone] Harshad Perez M.D. [address] [place] [phone] 03/16/2025 1:30 PM CDT Comprehensive Visit Division of Pulmonary Medicine in [place], [place] [address] [place] [phone] Morgan Peck M.D. [address] [place] [phone] 03/22/2025 11:10 AM CDT Appointment Department of Laboratory Medicine and Pathology, [facility] in [place], [place] [address] [place] [phone] Harshad Perez M.D. [address] [place] [phone] 03/22/2025 1:00 PM CDT Infusion Department of Oncology in [place], [place] [address] [place] [phone] Harshad Perez M.D. [address] [place] [phone] 03/29/2025 9:15 AM CDT Appointment Division of Pulmonary Medicine in [place], [place] [address] [place] [phone] Harshad Perez M.D. [address] [place] [phone] Discharge Disposition: Home or Self Care 03/29/2025 10:30 AM CDT Appointment Department of Laboratory Medicine and Pathology, [facility], in [place], [place] [address] [place] [address] Harshad Perez M.D. [address] [place] [phone] 03/29/2025 11:15 AM CDT Nurse Only Division of Hematology in [place], [place] [address] [place] [phone] Harshad Perez M.D. [address] [place] [phone] 03/29/2025 1:30 PM CDT Infusion Department of Oncology in [place], [place] [address] [place] [address] Harshad Perez M.D. [address] [place] [phone] 04/05/2025 10:10 AM CDT Appointment Department of Laboratory Medicine and Pathology, [facility] in [place], [place] [address] [place] [address] Harshad Perez M.D. [address] [place] [phone] 04/05/2025 12:00 PM CDT Infusion Department of Oncology in [place], [place] [address] [place] [address] Harshad Perez M.D. [address] [place] [phone] 04/12/2025 11:40 AM CDT Appointment Department of Laboratory Medicine and Pathology, [facility] in [place], [place] [address] [place] [address] Harshad Perez M.D. [address] [place] [phone] 04/12/2025 1:30 PM CDT Office Visit Division of Hematology in [place], [place] [address] [place] [phone] Tr Hernandez M.D. [address] [place] [phone] 04/12/2025 3:30 PM CDT Infusion Department of Oncology in [place], [place] [address] [place] [phone] Harshad Perez M.D. [address] [place] [phone] 04/19/2025 10:15 AM CDT Infusion Department of Oncology in [place], [place] [address] [place] [phone] Harshad Perez M.D. [address] [place] [phone] 04/26/2025 10:10 AM CDT Appointment Department of Laboratory Medicine and Pathology, [facility] in [place], [place] [address] [place] [phone] Harshad Perez M.D. [address] [place] [phone] 04/26/2025 11:00 AM CDT Nurse Only Division of Hematology in [address] [phone] Harshad Perze M.D. [address] [place] [phone] 04/26/2025 12:00 PM CDT Infusion Department of Oncology in [address] [phone] Harshad Perez M.D. [address] [place] [phone] 04/26/2025 1:30 PM CDT Appointment Division of Pulmonary Medicine in [address] [address] Harshad Perez M.D. [address] [place] [phone] Discharge Disposition: Home or Self Care 05/03/2025 10:15 AM CDT Infusion Department of Oncology in [place], [place] [address] [place] [phone] Harshad Perez M.D. [address] [place] [phone] 05/10/2025 9:40 AM UNDERGROUND ELECTRICIAN Appointment Department of Laboratory Medicine and Pathology, [facility] in [place], [place] [address] [place] [phone] Constantin López M.D. [address] [place] [phone] 05/10/2025 11:30 AM UNDERGROUND ELECTRICIAN Office Visit Division of Hematology in [address] [phone] Mely Hayden APRN, C.N.P., D.N.P., M.S. [address] [place] [phone] 05/10/2025 1:00 PM UNDERGROUND ELECTRICIAN Infusion Department of Oncology in [place], [place] [address] [place] [phone] Constantin López M.D. [address] [place] [phone] 05/17/2025 10:15 AM UNDERGROUND ELECTRICIAN Infusion Department of Oncology in [place], [place] [address] [place] [phone] Constantin López M.D. [address] [place] [address] 05/24/2025 10:00 AM UNDERGROUND ELECTRICIAN Appointment Department of Laboratory Medicine and Pathology, [facility] in [place], [place] [address] [place] [phone] Constantin López M.D. [address] [place] [phone] 05/24/2025 10:45 AM UNDERGROUND ELECTRICIAN Appointment Division of Pulmonary Medicine in [place], [place] [address] [place] [phone] Harshad Perez M.D. [address] [place] [phone] Discharge Disposition: Home or Self Care 05/24/2025 12:00 PM UNDERGROUND ELECTRICIAN Infusion Department of Oncology in [place], [place] [address] [place] [phone] Constantin López M.D. [address] [place] [phone] 05/31/2025 10:00 AM UNDERGROUND ELECTRICIAN Infusion Department of Oncology in [place], [place] [address] [place] [phone] Constantin López M.D. [address] [place] [phone] documented as of this encounter Visit Diagnoses Not on filedocumented in this encounter Additional Health Concerns Infection Onset Date Last Indicated Resolved Time Protective Environment 01/27/2025 01/27/2025 documented as of this encounter
--- OUTSIDE RECORDS SUMMARY | 2025-03-02 17:44 | XMS_ITS | Encounter Summary ---
Author Organization [facility] Address [address] [place] [address] Care Team Providers [facility] Orderly Name Role Phone Unavailable Primary Care Provider Unavailabl e Reason for Visit * Reason Onset Date Comments revlimid 01/31/2025 Encounter Details Date Type Department Care Team (Late st Contact Info) Description 01/31/2025 Clinical Communication Division of Hematology in [place], [place] [address] [place] [address] Cyndee Mak, RMaylin revlimid Social History Tobacco Use Types Packs/Day Years [...] things needed for daily living? No 01/27/2025 [facility] Utilities Answer Date Recorded In the past 12 months has th e electric, gas, oil, or water company threatened to shut off services in your home? No 01/27/2025 Housing Stability Answer Date Recorded What is your living situation today? [facility] 01/27/2025 Sex and Gender Information Value Date Recorded Sex Assigned at Male 01/27/2025 2:34 PM CDT Legal Sex Male 6:33 AM [employer] Gender Identity Male 01/27/2025 2:34 PM CDT Sexual Orientation Straight 01/27/2025 2: 34 PM CDT documented as of this encounter Plan of Treatment Upcoming Encounters Date Type Department Care Team (Latest Contact Info) Description 03/08/2025 8:00 AM CDT Appointment Department of Laboratory Medicine and Pathology, [facility] in [place], [place] [address] [place] [address] Constantin López M.D. [address] [place] [phone] 03/08/2025 8:45 AM CDT Infusion Department of Oncology in [place], [place] [address] [place] [address] Constantin López M.D. [address] [place] [phone] 03/08/2025 10:30 AM CDT Comprehensive Visit Department of Vascular Medicine in [place], [place] [address] [place] [phone] Vic Flores M.D. [address] [place] [phone] 03/11/2025 12:30 PM CDT Diagnostic Division of Pulmonary Medicine in [place], [place] [address] [place] [address] Constantin López M.D. [address] [place] [phone] 03/11/2025 2:00 PM CDT Appointment Department of Vascular Medicine in [place], [place] [address] [place] [address] Constantin López M.D. [address] [place] [phone] Discharge Disposition: Home or Self Care 03/15/2025 9:00 AM CDT Comprehensive Visit Department of Spine in [place], [place] [address] [place] [phone] Hebert Francis APRN, C.N.P., M.S.N. [address] [place] [phone] 03/15/2025 12:30 PM CDT Appointment Department of Laboratory Medicine and Pathology, [facility] in [place], [place] [address] [place] [phone] Harshad Perez M.D. [address] [place] [phone] 03/15/2025 2:30 PM CDT Office Visit Division of Hematology in [place], [place] [address] [place] [phone] Mely Hayden APRN, C.N.P., D.N.P., M.S. [address] [place] [phone] 03/15/2025 4:00 PM CDT Infusion Department of Oncology in [place], [place] [address] [place] [phone] Harshad Perez M.D. [address] [place] [phone] 03/16/2025 1:30 PM CDT Comprehensive Visit Division of Pulmonary Medicine in [place], [place] [address] [place] [phone] Morgan Peck M.D. [address] [place] [phone] 03/22/2025 11:10 AM CDT Appointment Department of Laboratory Medicine and Pathology, [facility], in [place], [place] [address] [place] [phone] Harshad Perez M.D. [address] [place] [phone] 03/22/2025 1:00 PM CDT Infusion Department of Oncology in [place], [place] [address] [place] [phone] Harshad Perez M.D. [address] [place] [phone] 03/29/2025 9:15 AM CDT Appointment Division of Pulmonary Medicine in [place], [place] [address] [place] [phone] Harshad Perez M.D. [address] [place] [phone] Discharge Disposition: Home or Self Care 03/29/2025 10:30 AM CDT Appointment Department of Laboratory Medicine and Pathology, [facility], in [place], [place] [address] [place] [address] Harshad Perez M.D. [address] [place] [phone] 03/29/2025 11:15 AM CDT Nurse Only Division of Hematology in [place], [place] [address] [place] [phone] Harshad Perez M.D. [address] [place] [phone] 03/29/2025 1:30 PM CDT Infusion Department of Oncology in [place], [place] [address] [place] [phone] Harshad Perez M.D. [address] [place] [phone] 04/05/2025 10:10 AM CDT Appointment Department of Laboratory Medicine and Pathology, [facility] in [place], [place] [address] [place] [phone] Harshad Perez M.D. [address] [place] [phone] 04/05/2025 12:00 PM CDT Infusion Department of Oncology in [place], [place] [address] [place] [phone] Harshad Perez M.D. [address] [place] [phone] 04/12/2025 11:40 AM CDT Appointment Department of Laboratory Medicine and Pathology, [facility] in [place], [place] [address] [place] [address] Harshad Perez M.D. [address] [place] [phone] 04/12/2025 1:30 PM CDT Office Visit Division of Hematology in [place], [place] [address] [place] [phone] Tr Hernandez M.D. [address] [place] [phone] 04/12/2025 3:30 PM CDT Infusion Department of Oncology in [place], [place] [address] [place] [address] Harshad Perez M.D. [address] [place] [phone] 04/19/2025 10:15 AM CDT Infusion Department of Oncology in [place], [place] [address] [place] [phone] Harshad Perez M.D. [address] [place] [phone] 04/26/2025 10:10 AM CDT Appointment Department of Laboratory Medicine and Pathology, [facility] in [place], [place] [address] [place] [address] Harshad Perez M.D. [address] [place] [phone] 04/26/2025 11:00 AM CDT Nurse Only Division of Hematology in [place], [place] [address] [place] [phone] Harshad Perez M.D. [address] [place] [phone] 04/26/2025 12:00 PM CDT Infusion Department of Oncology in [place], [place] [address] [place] [phone] Harshad Perez M.D. [address] [place] [phone] 04/26/2025 1:30 PM CDT Appointment Division of Pulmonary Medicine in [place], [place] [address] [place] [phone] Harshad Perez M.D. [address] [place] [phone] Discharge Disposition: Home or Self Care 05/03/2025 10:15 AM CDT Infusion Department of Oncology in [place], [place] [address] [place] [phone] Harshad Perez M.D. [address] [place] [phone] 05/10/2025 9:40 AM [employer] Appointment Department of Laboratory Medicine and Pathology, [place], [place] [address] [place] [phone] Constantin López M.D. [address] [place] [phone] 05/10/2025 11:30 AM [employer] Office Visit Division of Hematology in [place], [place] [address] [place] [phone] Mely Hayden APRN, C.N.P., D.N.P., M.S. [address] [place] [phone] 05/10/2025 1:00 PM [employer] Infusion Department of Oncology in [address] [phone] Constantin López M.D. [address] [place] [phone] 05/17/2025 10:15 AM [employer]MAN Infusion Department of Oncology in [place], [place] [address] [place] [phone] Constantin López M.D. [address] [place] [phone] 05/24/2025 10:00 AM [employer]IVE CHAIRMAN Appointment Department of Laboratory Medicine and Pathology, [facility] in [place], [place] [address] [place] [phone] Constantin López M.D. [address] [place] [phone] 05/24/2025 10:45 AM [employer]ATIVE CHAIRMAN Appointment Division of Pulmonary Medicine in [place], [place] [address] [place] [phone] Harshad Perez M.D. [address] [place] [phone] Discharge Disposition: Home or Self Care 05/24/2025 12:00 PM [employer] Infusion Department of Oncology in [place], [place] [address] [place] [phone] Constantin López M.D. [address] [place] [phone] 05/31/2025 10:00 AM [employer] Infusion Department of Oncology in [place], [place] [address] [place] [phone] Constantin López M.D. [address] [place] [phone] documented as of this encounter Visit Diagnoses Not on filedocumented in this encounter Additional Health Concerns Infection Onset Date Last Indicated Resolved Time Protective Environment 01/27/2025 01/27/2025 documented as of this encounter
--- OUTSIDE RECORDS SUMMARY | 2025-03-02 17:44 | XMS_ITS | Clinical Summary ---
Author Organization [facility] Address [address] [place] [address] Care Team Providers Care Auto Body Man Name Role Phone Unavailable Primary Care Provider Unavailabl e Source Comments Patient records contain information from all sites at [facility]. For routine questions regarding patient records, call [phone] during business hours, M-F 8:00 AM - 5:00 PM Central Time. Record requests for emergency care only can be directed to [phone] at any time.[facility] Allergies No known active allergies Medications * This document contains information received from the source organization and may not represent a complete record from that organization. prochlorperaz ine (Compazine) 10 mg tabletIndicat ions:Multiple Myeloma Not Having Achieved Remission (HCC) Take 1 tablet (10 mg total) by mouth every 6 (six) hours as needed for nausea or vomiting. 30 tablet 3 5 12:05 PM CDT 01/28/20 25 2025 Active ondansetron (Zofran) 8 mg tabletIndicat ions:Multiple Myeloma Not Having Achieved Remission (HCC) Take 1 tablet (8 mg total) by mouth every 8 (eight) hours as needed for nausea or vomiting (unrelieved by prochlorperazine ). 30 tablet 3 5 12:05 PM CDT 01/28/20 25 20[address] Active [address] tabletIndicat ions:Multiple Myeloma Not Having Achieved Remission (HCC) Take 1 tablet (325 mg total) by mouth daily. 100 tablet 3 01/28/20 Active Additional Information Patient not taking.Reported on 02/03/2025 lenalidomide (Revlimid) 10 mg capsuleIndica tions:Multipl e Myeloma Not Having Achieved Remission (HCC) Take 1 capsule (10 mg total) by mouth daily. Take on days 1 through 21 of cycle 21 capsule 01/29/20 Active Additional Information Patient not taking.Reported on 02/03/2025 lenalidomide (Revlimid) 10 mg capsuleIndica tions:Multipl e Myeloma Not Having Achieved Remission (HCC) Take 1 capsule (10 mg total) by mouth daily. Take on days 1 through 21 of cycle 21 capsule 02/01/20 25 Active Additional Information Patient not taking.Reported on 02/03/2025 amitriptyline 2%-ketamine 5%-lidocaine 5% in vanicream Apply topically 4 (four) times a day. Apply to both feet 30 g 1 5 9:06 AM CDT 02/12/20 25 Active allopurinoL (Zyloprim) 100 mg tablet Take 3 tablets (300 mg) orally as the initial dose. Then take 1 tablet (100 mg) orally once daily. 33 tablet 02/12/20 25 Active calcium carbonate-vit gale D3 1,500 mg (600 mg calcium)-10 mcg (400 Unit) per tablet Take 1 tablet by mouth 2 (two) times a day with meals. 90 tablet 02/12/20 25 Active dexAMETHasone (Decadron) 4 mg tabletIndicat ions:Multiple Myeloma Not Having Achieved Remission (HCC) Take 10 tablets (40 mg total) by mouth once a week for 4 doses. Take on days 1, 8, 15, and 22. If it is a day you are receiving daratumumab, take dexAMETHasone with you to infusion appointment. 40 tablet 02/16/20 25 2024 Active Research IRB [id number] iberdomide (CC-220) 0.75 mg capsuleIndica tions:Multipl e Myeloma Not Having Achieved Remission (HCC) Take 1 capsule (0.75 mg total) by mouth daily for 21 days. Take with or without food, at approximately the same time each day on days 1-21. 1 Bottle 02/16/20 25 2024 Active amitriptyline 2%-ketamine 5%-lidocaine 5% in vanicream Apply topically 4 (four) times a day. Apply to both feet 30 g 1 02/24/20 25 Active gabapentin (Neurontin) 300 mg capsule Take 1 capsule (300 mg total) by mouth 2 (two) times a day. 30 capsule 02/24/20 25 Active omeprazole (PriLOSEC) [address] capsule Take 1 capsule (20 mg total) by mouth daily. 90 capsule 3 02/24/20 25 Active levoFLOXacin (Levaquin) 250 mg tabletIndicat ions:Multiple Myeloma Not Having Achieved Remission (HCC) Take 1 tablet (250 mg total) by mouth daily for 30 days. 30 tablet 02/24/20 25 2024 Active acyclovir (Zovirax) 400 mg tabletIndicat ions:Multiple Myeloma Not Having Achieved Remission (HCC) Take 1 tablet (400 mg total) by mouth 2 (two) times a day. 60 tablet 6 02/24/20 25 Active levoFLOXacin (Levaquin) 250 mg tabletIndicat ions:Multiple Myeloma Not Having Achieved Remission (HCC) Take 1 tablet (250 mg total) by mouth daily. 30 tablet 2 5 12:05 PM CDT 01/28/20 25 2024 Discontinued(R eorder) acyclovir (Zovirax) 400 mg tabletIndicat ions:Multiple Myeloma Not Having Achieved Remission (HCC) Take 1 tablet (400 mg total) by mouth 2 (two) times a day. 60 tablet 6 5 12:05 PM CDT 01/28/20 25 2024 Discontinued(R eorder) dexAMETHasone (Decadron) 4 mg tabletIndicat ions:Multiple Myeloma Not Having Achieved Remission (HCC) Take 10 tablets (40 mg total) by mouth once a week for 4 doses. Take on days 1, 8, 15, and 22. If it is a day you are receiving daratumumab, take dexAMETHasone prior to infusion appointment. 40 tablet 5 12:05 PM CDT 01/29/20 25 2024 omeprazole (PriLOSEC) [address] capsule Take 1 capsule (20 mg total) by mouth daily. 90 capsule 3 5 12:05 PM CDT 01/29/20 25 2024 Discontinued(R eorder) gabapentin (Neurontin) 300 mg capsule Take 1 capsule (300 mg total) by mouth at bedtime. 30 capsule 8:57 AM CDT 01/29/20 25 2024 Discontinued(R eorder) gabapentin (Neurontin) 300 mg capsule Take 1 capsule (300 mg total) by mouth 2 (two) times a day. 30 capsule 4:52 PM CDT 02/04/20 25 2024 Discontinued(R eorder) amitriptyline 2%-ketamine 5%-lidocaine 5% in vanicream Apply topically 4 (four) times a day. Apply to both feet 30 g 1 02/23/20 25 2024 Discontinued amitriptyline 2%-ketamine 5%-lidocaine 5% in vanicream Apply topically 4 (four) times a day. Apply to both feet 30 g 1 02/23/20 25 2024 Discontinued Active Problems Problem Noted Date Diagnosed Date Multiple Myeloma Not Having Achieved Remission 0 01/27/2025 Encounters * This document contains information received from the source organization and may not represent a complete record from that organization. Date Type Department Care Team Description 03/01/2025 1:30 PM CDT Infusion Department of Oncology in [place], [place] [address] [place] [address] Constantin López M.D. Multiple Myeloma Not Having Achieved Remission (HCC) (Primary Dx) 03/01/2025 11:15 AM CDT Nurse Only Division of Hematology in [place], [place] [address] [place] [address] Constantin López M.D. Hussein, Zahra, R.N., O.C.N. 03/01/2025 9:12 AM CDT - 03/01/2025 11:59 PM CDT Hospital Encounter Division of Pulmonary Medicine in [place], [place] [address] [place] [address] Harshad Conti M.D. Multiple Myeloma Not Having Achieved Remission (HCC) (Primary Dx) Discharge Disposition: Home or Self Care 02/23/2025 Clinical Communication Division of Hematology in [place], [place] [address] [place] [address] Harshad Conti M.D. Med Refill (amitriptyline 2%-ketamine 5%-lidocaine 5% in vanicream) 02/22/2025 1:08 PM CDT - 02/22/2025 11:59 PM CDT Hospital Encounter Department of Radiology, [facility] in [place], [place] [address] [place] [address] Harshad Conti M.D. Pain Low Back Unspecified Discharge Disposition: Home or Self Care 02/22/2025 9:00 AM CDT Infusion Department of Oncology in [place], [place] [address] [place] [phone] Cnostantin López M.D. Multiple Myeloma Not Having Achieved Remission (HCC) (Primary Dx) 02/16/2025 Orders Only Division of Hematology in [place], [place] [address] [place] [phone] Constantin López M.D. 02/15/2025 4:30 PM CDT Admin Visit Department of Oncology in [place], [place] [address] [place] [phone] Tr Hernandez M.D. 02/15/2025 4:00 PM CDT Infusion Department of Oncology in [place], [place] [address] [place] [phone] Constantin López M.D. Multiple Myeloma Not Having Achieved Remission (HCC) (Primary Dx) 02/15/2025 2:00 PM CDT Office Visit Division of Hematology in [address] [phone] Tr Hernandez M.D. Multiple Myeloma Not Having Achieved Remission (HCC) (Primary Dx) 02/15/2025 1:30 PM CDT Nurse Only Division of Hematology in [address] [address] Tr Hernandez M.D. Hussein, Zahra, R.N., O.C.N. 02/15/2025 11:28 AM CDT - 02/15/2025 11:59 PM CDT Hospital Encounter Department of Laboratory Medicine and Pathology, [facility] in [place], [place] [address] [place] [address] Constantin López M.D. Multiple Myeloma Not Having Achieved Remission (HCC); Thoracic Aortic Aneurysm Without Rupture Unspecified Discharge Disposition: Home or Self Care 02/15/2025 Orders Only Division of Hematology in [place], [place] [address] [place] [phone] Constantin Lóepz M.D. 02/15/2025 Clinical Communication Division of Hematology in [place], [place] [address] [place] [phone] Harshad Conti M.D. 03/22+//myeloma//es t 02/14/2025 Orders Only Division of Hematology in [place], [place] [address] [place] [phone] Joey Majano Multiple Myeloma Not Having Achieved Remission (HCC) (Primary Dx) 02/11/2025 10:23 AM CDT - 02/11/2025 11:59 PM CDT Hospital Encounter Department of Radiology, [facility] in [place], [place] [address] [place] [address] Constantin López M.D. Pain Joint Foot Bilateral Discharge Disposition: Home or Self Care 02/11/2025 10:00 AM CDT Office Visit Division of Hematology in [place], [place] [address] [place] [address] Constantin López M.D. Pain Joint Foot Bilateral (Primary Dx); Multiple Myeloma Not Having Achieved Remission (HCC) 02/11/2025 8:26 AM CDT - 02/11/2025 10:22 AM CDT Hospital Encounter Department of Laboratory Medicine and Pathology, [facility], in [place], [place] [address] [place] [address] Constantin López M.D. Multiple Myeloma Not Having Achieved Remission (HCC) Discharge Disposition: Home or Self Care 02/11/2025 Orders Only Division of Hematology in [place], [place] [address] [place] [address] Constantin López M.D. Thoracic Aortic Aneurysm Without Rupture Unspecified (Primary Dx); Multiple Myeloma Not Having Achieved Remission (HCC); Fracture Vertebra Compress Malignant Initial 02/10/2025 10:20 AM CDT Ancillary Procedure Department of Radiology in [place], [place] [address] [place] [phone] Constantin López M.D. Multiple Myeloma Not Having Achieved Remission (HCC) 02/10/2025 10:00 AM CDT - 02/10/2025 11:59 PM CDT Hospital Encounter Department of Laboratory Medicine and Pathology, [facility] in [place], [place] [address] [place] [phone] Constantin López M.D. Multiple Myeloma Not Having Achieved Remission (HCC) Discharge Disposition: Home or Self Care 02/10/2025 9:30 AM CDT Telemedicine Division of Hematology in [place], [place] [address] [place] [phone] Constantin López M.D. Chronic Cough (Primary Dx); Multiple Myeloma Not Having Achieved Remission (HCC) 02/10/2025 Orders Only Division of Hematology in [place], [place] [address] [place] [phone] Mandy Godfrey Multiple Myeloma Not Having Achieved Remission (HCC) (Primary Dx) 02/09/2025 Orders Only Division of Hematology in [address] [address] Constantin López M.D. 02/08/2025 3:30 PM CDT Infusion Department of Oncology in [place], [place] [address] [place] [phone] Harshad Conti M.D. Multiple Myeloma Not Having Achieved Remission (HCC) (Primary Dx) 02/08/2025 11:42 AM CDT - 02/08/2025 11:59 PM CDT Hospital Encounter Department of Neurology in [place], [place] [address] [place] [phone] Harshad Conti M.D. Multiple Myeloma Not Having Achieved Remission (HCC); Pain Low Back Unspecified Discharge Disposition: Home or Self Care 02/05/2025 Orders Only Division of Hematology in [place], [place] [address] [place] [address] Harshad Conti M.D. Multiple Myeloma Not Having Achieved Remission (HCC) (Primary Dx) 02/04/2025 Clinical Communication Division of Hematology in [place], [place] [address] [place] [address] Harshad Conti M.D. Triage Denied 02/03/2025 12:24 PM CDT - 02/03/2025 11:59 PM CDT Hospital Encounter Division of Pulmonary Medicine in [place], [place] [address] [place] [address] Harshad Conti M.D. Multiple Myeloma Not Having Achieved Remission (HCC) (Primary Dx) Discharge Disposition: Home or Self Care 02/03/2025 10:33 AM CDT - 02/03/2025 12:23 PM CDT Hospital Encounter Department of Radiology, [facility] in [place], [place] [address] [place] [address] Harshad Conti M.D. Multiple Myeloma Not Having Achieved Remission (HCC); Pain Low Back Unspecified Discharge Disposition: Home or Self Care 02/03/2025 9:45 AM CDT Office Visit Division of Hematology in [place], [place] [address] [place] [address] Harshad Conti M.D. Multiple Myeloma Not Having Achieved Remission (HCC) (Primary Dx); Pain Low Back Unspecified 02/03/2025 8:56 AM CDT - 02/03/2025 10:32 AM CDT Hospital Encounter Department of Laboratory Medicine and Pathology, [facility] in [place], [place] [address] [place] [address] Harshad Conti M.D. Multiple Myeloma Not Having Achieved Remission (HCC) Discharge Disposition: Home or Self Care 01/31/2025 9:20 AM CDT Admin Visit Department of Oncology in [place], [place] [address] [place] [address] 01/31/2025 Orders Only Division of Hematology in [place], [place] [address] [place] [address] Harshad Conti M.D. Multiple Myeloma Not Having Achieved Remission (HCC) (Primary Dx) 01/31/2025 Clinical Communication Division of Hematology in [place], [place] [address] [place] [address] Cyndee Mak R.N. revlimid 01/31/2025 Orders Only Pharmacy Prior Auth RO [phone] Mely Heller 01/28/2025 1:30 PM CDT Infusion Department of Oncology in [place], [place] [address] [place] [address] Harshad Conti M.D. Multiple Myeloma Not Having Achieved Remission (HCC) (Primary Dx) 01/28/2025 1:00 PM CDT Procedure visit Department of Infusion Therapy in [place], [place] [address] [place] [address] Harshad Conti M.D. Haack, Joseph J, R.NLevy Multiple Myeloma Not Having Achieved Remission (HCC); Clinical Research Exam 01/28/2025 11:42 AM CDT - 01/28/2025 11:59 PM CDT Hospital Encounter Department of Laboratory Medicine and Pathology, [facility], in [place], [place] [address] [place] [address] Harshad Conti M.D. Multiple Myeloma Not Having Achieved Remission (HCC) (Primary Dx); Clinical Research Exam Discharge Disposition: Home or Self Care 01/28/2025 10:45 AM CDT Education Division of Hematology in [place], [place] [address] [place] [address] Harshad Conti M.D. Stahman, Jessica K RMaylin Multiple Myeloma Not Having Achieved Remission (HCC) (Primary Dx) 01/28/2025 10:00 AM CDT Clinical Support - [facility] Division of Hematology in [place], [place] [address] [place] [address] Katie Laureano Clinical Research Exam (Primary Dx) 01/28/2025 8:45 AM CDT Virtual Visit Division of Hematology in [place], [place] [address] [place] [address] Harshad Conti M.D. Multiple Myeloma Not Having Achieved Remission (HCC) (Primary Dx) 01/28/2025 Orders Only Division of Hematology in [place], [place] [address] [place] [address] Harshad Conti M.D. 01/28/2025 Orders Only Division of Hematology in [place], [place] [address] [place] [phone] Harshad Conti M.D. Multiple Myeloma Not Having Achieved Remission (HCC) (Primary Dx) 01/28/2025 Clinical Communication Division of Hematology in [place], [place] [address] [place] [address] Harshad Conti M.D. 01/28/2025 Clinical Communication Division of Hematology in [place], [place] [address] [place] [phone] Harshad Conti M.D. 01/27/2025 11:20 AM CDT Ancillary Procedure Department of Cardiovascular Medicine in [place], [place] [address] [place] [address] Harshad Conti M.D. Multiple Myeloma Not Having Achieved Remission (HCC) 01/27/2025 10:44 AM CDT - 01/27/2025 11:59 PM CDT Hospital Encounter Department of Laboratory Medicine and Pathology, [place], [place] [address] [place] [address] Harshad Conti M.D. Multiple Myeloma Not Having Achieved Remission (HCC) Discharge Disposition: Home or Self Care 01/27/2025 10:44 AM CDT - 01/27/2025 11:59 PM CDT Hospital Encounter Department of Laboratory Medicine and Pathology, [facility] in [place], [place] [address] [place] [address] Harshad Conti M.D. Multiple Myeloma Not Having Achieved Remission (HCC) Discharge Disposition: Home or Self Care 01/27/2025 Clinical Communication Antony kunz [facility] Transplantation and Clinical Regeneration in [place], [place] [address] [place] [phone] Harshad Conti M.D. 01/27/2025 Clinical Communication Division of Hematology in [place], [place] [address] [place] [phone] Harshad Conti M.D. 01/28//Daratumumab/ /NEW 01/27/2025 Orders Only Division of Hematology in [place], [place] [address] [place] [phone] Harshad Conti M.D. Multiple Myeloma Not Having Achieved Remission (HCC) (Primary Dx) 01/27/2025 Clinical Communication Division of Hematology in [place], [place] [address] [place] [phone] Cyndee Mak, RLevyN. Results 01/26/2025 12:20 PM CDT Ancillary Procedure Department of Radiology in [place], [place] [address] [place] [address] Harshad Conti M.D. Multiple Myeloma Not Having Achieved Remission (HCC) 01/26/2025 Orders Only Division of Hematology in [place], [place] [address] [place] [phone] Harshad Conti M.D. Multiple Myeloma Not Having Achieved Remission (HCC) (Primary Dx) 01/26/2025 Orders Only Division of Hematology in [place], [place] [address] [place] [address] Harshad Conti M.D. Multiple Myeloma Not Having Achieved Remission (HCC) (Primary Dx) 01/26/2025 Clinical Communication Division of Hematology in [place], [place] [address] [place] [phone] Claudia Morton, RLevyN. New Patient; Multiple Myeloma 01/25/2025 Clinical Communication Antony kunz [facility] Transplantation and Clinical Regeneration in [place], [place] [address] [place] [address] Harshad Conti M.D. [facility] - Outside Materials from Last 3 Months Immunizations Immunization Administration Dates Next Due DTaP ([employer], [employer]) 01/10/2009 HepA / HepB 01/10/2009 Family History Medical History Relation Name Comments Prostate cancer Father Surya Laird He also had multiple myeloma Ovarian cancer Mother Fely Laird Relation Name Status Comments Father Surya Laird Mother Fely Laird Social History Tobacco Use Types Packs/Day Years [...] for daily living? No 01/27/2025 [facility] Utilities Answer Date Recorded In the past 12 months has th e electric, gas, oil, or water company threatened to shut off services in your home? No 01/27/2025 Housing Stability Answer Date Recorded What is your living situation today? I have a [facility] place to live 01/27/2025 Sex and Gender Information Value Date Recorded Sex Assigned at Male 01/27/2025 2:34 PM CDT Legal Sex Male 6:33 AM [employer] Gender Identity Male 01/27/2025 2:34 PM CDT Sexual Orientation Straight 01/27/2025 2: 34 PM CDT Last Filed Vital Signs Vital Sign Reading Time Taken Comments Blood Pressure 99/62 03/01/2025 11:17 AM CDT Pulse 89 03/01/2025 11:17 AM CDT Temperature 36.7 C (98.1 F) 02/22/2025 9:00 AM CDT Respiratory Rate 16 03/01/2025 9:39 AM CDT Oxygen Saturation 97% 03/01/2025 9:39 AM CDT Inhaled Oxygen Concentration - - Weight 73.3 kg (161 lb 9.6 oz) 03/01/2025 11:17 AM CDT Height 173.2 cm (5' 8.19) 03/01/2025 11:17 AM C DT Body Mass Index 24.43 03/01/2025 11:17 AM CDT Plan of Treatment Upcoming Encounters Date Type Department Care Team (Latest Contact Info) Description 03/08/2025 8:00 AM CDT Appointment Department of Laboratory Medicine and Pathology, [facility], in [place], [place] [address] [place] [phone] Constantin López M.D. [address] [place] [phone] 03/08/2025 8:45 AM CDT Infusion Department of Oncology in [place], [place] [address] [place] [phone] Constantin López M.D. [address] [place] [phone] 03/08/2025 10:30 AM CDT Comprehensive Visit Department of Vascular Medicine in [place], [place] [address] [place] [phone] Vic Flores M.D. [address] [place] [phone] 03/11/2025 12:30 PM CDT Diagnostic Division of Pulmonary Medicine in [place], [place] [address] [place] [phone] Constantin López M.D. [address] [place] [phone] 03/11/2025 2:00 PM CDT Appointment Department of Vascular Medicine in [place], [place] [address] [place] [phone] Constantin López M.D. [address] [place] [phone] Discharge Disposition: Home or Self Care 03/15/2025 9:00 AM CDT Comprehensive Visit Department of Spine in [place], [place] [address] [place] [phone] Hebert Francis APRN, C.N.P., M.S.N. [address] [place] [phone] 03/15/2025 12:30 PM CDT Appointment Department of Laboratory Medicine and Pathology, [facility] in [place], [place] [address] [place] [phone] Harshad Conti M.D. [address] [place] [phone] 03/15/2025 2:30 PM CDT Office Visit Division of Hematology in [place], [place] [address] [place] [phone] Mely Hayden APRN, C.N.P., D.N.P., M.S. [address] [place] [phone] 03/15/2025 4:00 PM CDT Infusion Department of Oncology in [place], [place] [address] [place] [phone] Harshad Conti M.D. [address] [place] [phone] 03/16/2025 1:30 PM CDT Comprehensive Visit Division of Pulmonary Medicine in [place], [place] [address] [place] [address] Morgan Peck M.D. [address] [place] [phone] 03/22/2025 11:10 AM CDT Appointment Department of Laboratory Medicine and Pathology, [facility] in [place], [place] [address] [place] [phone] Harshad Conti M.D. [address] [place] [phone] 03/22/2025 1:00 PM CDT Infusion Department of Oncology in [place], [place] [address] [place] [phone] Harshad Conti M.D. [address] [place] [phone] 03/29/2025 9:15 AM CDT Appointment Division of Pulmonary Medicine in [place], [place] [address] [place] [phone] Harshad Conti M.D. [address] [place] [phone] Discharge Disposition: Home or Self Care 03/29/2025 10:30 AM CDT Appointment Department of Laboratory Medicine and Pathology, [facility] in [place], [place] [address] [place] [address] Harshad Conti M.D. [address] [place] [phone] 03/29/2025 11:15 AM CDT Nurse Only Division of Hematology in [place], [place] [address] [place] [address] Harshad Conti M.D. [address] [place] [phone] 03/29/2025 1:30 PM CDT Infusion Department of Oncology in [place], [place] [address] [place] [address] Harshad Conti M.D. [address] [place] [phone] 04/05/2025 10:10 AM CDT Appointment Department of Laboratory Medicine and Pathology, [facility] in [place], [place] [address] [place] [address] Harshad Conti M.D. [address] [place] [phone] 04/05/2025 12:00 PM CDT Infusion Department of Oncology in [place], [place] [address] [place] [address] Harshad Conti M.D. [address] [place] [phone] 04/12/2025 11:40 AM CDT Appointment Department of Laboratory Medicine and Pathology, [facility], in [place], [place] [address] [place] [address] Harshad Conti M.D. [address] [place] [phone] 04/12/2025 1:30 PM CDT Office Visit Division of Hematology in [place], [place] [address] [place] [address] Tr Hernandez M.D. [address] [place] [phone] 04/12/2025 3:30 PM CDT Infusion Department of Oncology in [place], [place] [address] [place] [address] Harshad Conti M.D. [address] [place] [phone] 04/19/2025 10:15 AM CDT Infusion Department of Oncology in [place], [place] [address] [place] [phone] Harshad Conti M.D. [address] [place] [phone] 04/26/2025 10:10 AM CDT Appointment Department of Laboratory Medicine and Pathology, [facility] in [place], [place] [address] [place] [phone] Harshad Conti M.D. [address] [place] [phone] 04/26/2025 11:00 AM CDT Nurse Only Division of Hematology in [place], [place] [address] [place] [phone] Harshad Conti M.D. [address] [place] [phone] 04/26/2025 12:00 PM CDT Infusion Department of Oncology in [place], [place] [address] [place] [address] Harshad Conti M.D. [address] [place] [phone] 04/26/2025 1:30 PM CDT Appointment Division of Pulmonary Medicine in [place], [place] [address] [place] [phone] KoHarshad high M.D. [address] [place] [phone] Discharge Disposition: Home or Self Care 05/03/2025 10:15 AM CDT Infusion Department of Oncology in [place], [place] [address] [place] [phone] Harshad Conti M.D. [address] [place] [phone] 05/10/2025 9:40 AM FRYER LINE HELPER Appointment Department of Laboratory Medicine and Pathology, [facility] in [place], [place] [address] [place] [phone] Constantin López M.D. [address] [place] [phone] 05/10/2025 11:30 AM FRYER LINE HELPER Office Visit Division of Hematology in [address] [phone] Mely Hayden APRN, C.N.P., D.N.P., M.S. [address] [place] [phone] 05/10/2025 1:00 PM FRYER LINE HELPER Infusion Department of Oncology in [address] [phone] Constantin López M.D. [address] [place] [phone] 05/17/2025 10:15 AM FRYER LINE HELPER Infusion Department of Oncology in [address] [phone] Constantin López M.D. [address] [place] [phone] 05/24/2025 10:00 AM FRYER LINE HELPER Appointment Department of Laboratory Medicine and Pathology, [facility], in [place], [place] [address] [place] [address] Constantin López M.D. [address] [place] [phone] 05/24/2025 10:45 AM FRYER LINE HELPER Appointment Division of Pulmonary Medicine in [place], [place] [address] [place] [phone] Harshad Conti M.D. [address] [place] [phone] Discharge Disposition: Home or Self Care 05/24/2025 12:00 PM FRYER LINE HELPER Infusion Department of Oncology in [place], [place] [address] [place] [address] Constantin López M.D. [address] [place] [phone] 05/31/2025 10:00 AM FRYER LINE HELPER Infusion Department of Oncology in [place], [place] [address] [place] [address] Constantin López M.D. [address] [place] [phone] Health Maintenance Due Date Last Done Comments CT Colonography 1963 Cologuard 1965 FIT 1965 Hepatitis C Screening 1963 Lung Cancer Screening 1963 Pneumococcal vaccine (50+ years) (1 of 2 - PCV) 1982 Hepatitis A Vaccines (3 of 3 - Hep A Twinrix risk 3-dose series) 09/28/2011 04/29/2011, 01/10/2009 COVID-19 Vaccine (3 - Pfizer risk series) 03/15/2021 02/15/2021, 01/25/2021 RSV vaccine - (32-36 weeks) or 60+ years (1 - Risk 60-74 years 1-dose series) 2023 Depression Screening (Annual PHQ-2) 07/07/2024 Influenza Vaccine (#1) 2025 9, 04/13/2018, 04/29/2011 Fasting Glucose for Diabetes Screening 03/01/2028 03/01/2025, 02/15/2025, 02/11/2025, Additional history exists Colonoscopy 04/08/2028 04/08/2018 Colorectal Cancer Screening 04/08/2028 DTaP,Tdap,and Td Vaccines (3 - Tdap) 04/14/2029 04/14/2019, 01/10/2009, 01/10/2009 Lipid (Cholesterol) Screening 02/15/2030 02/15/2025, 06/04/2023, 04/14/2019, Additional history exists Zoster Vaccines Completed 06/04/2023, 04/14/2019 HPV Vaccines Aged Out No longer eligi ble based on patient's age to complete this topic IPV Vaccines Aged Out No longer eligi ble based on patient's age to complete this topic Medical Devices Implanted Type Area Consumer Loan Underwriter Device Identifier Shelf Expiration Date Model / Serial / Lot Hardware E.G. Pins/Screws/R ods Hardware e.g. pins/screws/ rods Midline: Mouth Procedures Procedure Name Priority Date/Time Associated Diagnosis Comments ALBUMIN, S/P Routine 03/01/2025 8:59 AM CDT Multiple Myeloma Not Having Achieved Remission (HCC) CALCIUM, TOT, S/P Routine 03/01/2025 8:5 9 AM CDT Multiple Myeloma Not Having Achieved Remission (HCC) CREATININE WITH EGFR, S/P Routine 03/01/2025 8:59 AM CDT Multiple Myeloma Not Having Achieved Remission (HCC) ALANINE AMINOTRANSFERASE (ALT), S/P Routine 03/01/2025 8:59 AM CDT Multiple Myeloma Not Having Achieved Remission (HCC) ASPARTATE AMINOTRANSFERASE (AST), S/P Routine 03/01/2025 8:59 AM CDT Multiple Myeloma Not Having Achieved Remission (HCC) BILIRUBIN DIRECT, S/P Routine 03/01/2025 8:59 AM CDT Multiple Myeloma Not Having Achieved Remission (HCC) BILIRUBIN, TOT, S/P Routine 03/01/2025 8 :59 AM CDT Multiple Myeloma Not Having Achieved Remission (HCC) ALKALINE PHOSPHATASE, S/P Routine 03/01/2025 8:59 AM CDT Multiple Myeloma Not Having Achieved Remission (HCC) GLUCOSE, FASTING, S/P Routine 03/01/2025 8:59 AM CDT Multiple Myeloma Not Having Achieved Remission (HCC) POTASSIUM, S/P Routine 03/01/2025 8:59 AM CDT Multiple Myeloma Not Having Achieved Remission (HCC) SODIUM, S/P Routine 03/01/2025 8:59 AM CDT Multiple Myeloma Not Having Achieved Remission (HCC) CBC WITH DIFFERENTIAL, B Routine 03/01/2025 8:59 AM CDT Multiple Myeloma Not Having Achieved Remission (HCC) MR LUMBAR SPINE WITHOUT IV CONTRAST RAD - Routine (most inpatients and all outpatients) 02/22/2025 2:33 PM CDT Pain Low Back Unspecified CBC WITH DIFFERENTIAL, B Routine 02/22/2025 7:38 AM CDT Multiple Myeloma Not Having Achieved Remission (HCC) LIPID PANEL, S Routine 02/15/2025 11:51 AM CDT Thoracic Aortic Aneurysm Without Rupture Unspecified IMMUNOGLOBULIN FREE LIGHT CHAINS, S Routine 02/15/2025 11:51 AM CDT Multiple Myeloma Not Having Achieved Remission (HCC) QUANTITATIVE M-PROTEIN STUDY, S Routine 02/15/2025 11:51 AM CDT Multiple Myeloma Not Having Achieved Remission (HCC) ALBUMIN, S/P Routine 02/15/2025 11:51 AM CDT Multiple Myeloma Not Having Achieved Remission (HCC) CALCIUM, TOT, S/P Routine 02/15/2025 11:51 AM CDT Multiple [...] Remission (HCC) BILIRUBIN, TOT, S/P Routine 02/15/2025 11:51 AM CDT Multiple [...] Remission (HCC) CBC WITH DIFFERENTIAL, B Routine 02/15/2025 11:51 AM CDT Multiple Myeloma Not Having Achieved Remission (HCC) MONOCLONAL PROTEIN STUDY, RANDOM, U Routine 02/12/2025 11:20 AM CDT DX FOOT BILATERAL 3+ VIEWS RAD - Routine (most inpatients and all outpatients) 02/11/2025 10:46 AM CDT Pain Joint Foot Bilateral ALBUMIN, S/P Routine 02/11/2025 8:46 AM CDT [...] Remission (HCC) CBC WITH DIFFERENTIAL, B Routine 02/11/2025 8:46 AM CDT Multiple Myeloma Not Having Achieved Remission (HCC) THYROID FUNCTION CASCADE, S Routine 02/11/2025 8:46 AM CDT Multiple Myeloma Not Having Achieved Remission (HCC) C-REACTIVE PROTEIN (CRP), S/P Routine 02/11/2025 8:46 AM CDT Multiple Myeloma Not Having Achieved Remission (HCC) ACTIVATED PARTIAL THROMBOPLASTIN TIME (APTT), P Routine 02/11/2025 8:46 AM CDT Multiple Myeloma Not Having Achieved Remission (HCC) PROTHROMBIN TIME (PT), P Routine 02/11/2025 8:46 AM CDT Multiple Myeloma Not Having Achieved Remission (HCC) HBV DNA DETECT/QUANT, PCR, S Routine 02/11/2025 8:46 AM CDT Multiple Myeloma Not Having Achieved Remission (HCC) 25-HYDROXYVITAMIN D2 AND D3, S Routine 02/11/2025 8:41 AM CDT Multiple Myeloma Not Having Achieved Remission (HCC) Fracture Vertebra Compress Malignant Initial CBC CHEMO - NO ALERTS Routine 02/08/2025 3:02 PM CDT Multiple Myeloma Not Having Achieved Remission (HCC) EMG Routine 02/08/2025 11:42 AM CDT Multiple Myeloma Not Having Achieved Remission (HCC) Pain Low Back Unspecified DX LUMBAR SPINE 2-3 VIEWS RAD - Routine (most inpatients and all outpatients) 02/03/2025 10:45 AM CDT Multiple Myeloma Not Having Achieved Remission (HCC) Pain Low Back Unspecified IMMUNOGLOBULIN FREE LIGHT CHAINS, S Routine 02/03/2025 9:13 AM CDT Multiple Myeloma Not Having Achieved Remission (HCC) BASIC METABOLIC PANEL, S/P Routine 02/03/2025 9:13 AM CDT Multiple Myeloma Not Having Achieved Remission (HCC) LACTATE DEHYDROGENASE (LD), S Routine 02/03/2025 9:13 AM CDT Multiple Myeloma Not Having Achieved Remission (HCC) MYELOMA STRATIFICATION AND RISK-ADAPTED THERAPY WITH REFLEX TO MINIMAL RESIDUAL DISEASE, BONE MARROW Routine 01/28/2025 1:25 PM CDT MSMART EVAL, PCPD, FISH Routine 01/28/2025 1:25 PM CDT MPCDS PRE-ANALYSIS CELL SORTING, BM Routine 01/28/2025 1:25 PM CDT DNA/RNA EXTRACT AND HOLD, B Routine 01/28/2025 1:04 PM CDT BONE MARROW RESEARCH ASPIRATE ADD ON COLLECTION Routine 01/28/2025 1:00 PM CDT Clinical Research Exam VA DX BONE MARROW BX & ASPIR Routine 01/28/2025 1:00 PM CDT Multiple Myeloma Not Having Achieved Remission (HCC) SPECIAL RED CELL AG TYPING, B Routine 01/28/2025 11:56 AM CDT MISC RESEARCH ORDER, B Routine 11:56 AM CDT Clinical Research Exam KATIE GARCIA MYELOMA STUDY Routine 01/28/2025 11:56 AM CDT Clinical Research Exam CALCIUM, TOT, S/P Routine 01/28/2025 11:56 AM CDT Multiple Myeloma Not Having Achieved Remission (HCC) CREATININE WITH EGFR, S/P Routine 01/28/2025 11:56 AM CDT Multiple Myeloma Not Having Achieved Remission (HCC) TYPE AND SCREEN Routine 01/28/2025 11:56 AM CDT Multiple Myeloma Not Having Achieved Remission (HCC) [id number] (BETA-2-M), S Routine 01/28/2025 11:56 AM CDT Multiple Myeloma Not Having Achieved Remission (HCC) LACTATE DEHYDROGENASE (LD), S Routine 01/28/2025 11:56 AM CDT Multiple Myeloma Not Having Achieved Remission (HCC) CBC W DIFF AND CITRATED PLTC, B Routine 01/28/2025 11:55 AM CDT Multiple Myeloma Not Having Achieved Remission (HCC) MONOCLONAL PROTEIN STUDY, 24 HR, U Routine 01/28/2025 11:42 AM CDT Multiple Myeloma Not Having Achieved Remission (HCC) HEMATOPATHOLOGY Routine 01/28/2025 12:00 AM CDT ECG Routine 01/27/2025 12:01 PM CDT Multiple Myeloma Not Having Achieved Remission (HCC) URIC ACID, S/P Routine 01/27/2025 11:20 AM CDT Multiple Myeloma Not Having Achieved Remission (HCC) CALCIUM, TOT, S/P Routine 01/27/2025 11:20 AM CDT Multiple Myeloma Not Having Achieved Remission (HCC) IMMUNOGLOBULIN FREE LIGHT CHAINS, S Routine 01/27/2025 11:20 AM CDT Multiple Myeloma Not Having Achieved Remission (HCC) ALBUMIN, S/P Routine 01/27/2025 11:20 AM CDT Multiple Myeloma Not Having Achieved Remission (HCC) QUANTITATIVE M-PROTEIN STUDY, S Routine 01/27/2025 11:20 [...] Remission (HCC) BILIRUBIN, TOT, S/P Routine 01/27/2025 11:20 AM CDT Multiple Myeloma Not Having Achieved Remission (HCC) POTASSIUM, S/P Routine 01/27/2025 11:20 AM CDT Multiple Myeloma Not Having Achieved Remission (HCC) CREATININE WITH EGFR, S/P Routine 01/27/2025 11:20 AM CDT Multiple Myeloma Not Having Achieved Remission (HCC) CBC WITH DIFFERENTIAL, B Routine 01/27/2025 11:20 AM CDT Multiple Myeloma Not Having Achieved Remission (HCC) NT-PRO B-TYPE NATRIURETIC PEPTIDE (BNP), S Routine 01/27/2025 11:20 AM CDT Multiple Myeloma Not Having Achieved Remission (HCC) TROPONIN T, 5TH GEN, P Routine 11:20 AM CDT Multiple Myeloma Not Having Achieved Remission (HCC) HBC TOTAL AB, SERUM Routine 01/27/2025 11:20 AM CDT Multiple Myeloma Not Having Achieved Remission (HCC) HBS ANTIBODY, SERUM Routine 01/27/2025 11:20 AM CDT Multiple Myeloma Not Having Achieved Remission (HCC) HEPATITIS B SURFACE ANTIGEN Routine 01/27/2025 11:20 AM CDT Multiple Myeloma Not Having Achieved Remission (HCC) HIV-1/-2 AG AND AB SCREEN, PLASMA Routine 01/27/2025 11:20 AM CDT Multiple Myeloma Not Having Achieved Remission (HCC) INTERPRETATION OF OUTSIDE NM PET SCAN RAD - Routine (most inpatients and all outpatients) 01/26/2025 12:21 PM CDT Multiple Myeloma Not Having Achieved Remission (HCC) OUTSIDE NM PET Routine 01/20/2025 12:[address] BODY Routine 01/17/2025 9:50 AM CDT from Last 3 Months Results * (ABNORMAL) CBC with Differential, Blood (03/01/2025 8:59 AM CDT) Only the most recent of5 resultswithin the time period is included. Hemoglobin 12.4(L) 13.2 - 16.6 g/dL 03/01/2025 [...] M.D. LAB BLOOD ADD-ON Final Resu lt [facility] 200 [place] [address], [facility] [address] 200 [place] [address] * ALT (Alanine Aminotransferase) (03/01/2025 8:59 AM CDT) Only the most recent of4 resultswithin the time period is included. Alanine Aminotransferase (ALT), S 14 7 - 55 U/L 03/01/2025 9:44 AM CDT DTL Blood (Blood, Venous) 03/01/2025 8:59 AM CDT 03/01/2025 9:06 AM CDT Constantin López M.D. LAB BLOOD ADD-[facility] 200 [place] [address], [facility] 200 [place] [address] * AST (Aspartate Aminotransferase) (03/01/2025 8:59 AM CDT) Only the most recent of4 resultswithin the time period is included. Aspartate Aminotransferase (AST), P 17 8 - 48 U/L 03/01/2025 9:34 AM CDT METH Blood (Blood, Venous) 03/01/2025 8:59 AM CDT 03/01/2025 9:11 AM CDT Constantin López M.D. LAB BLOOD ADD-ON Final Resu lt [facility] 200 [place] [address], [facility] 200 [place] [address] * (ABNORMAL) Sodium (03/01/2025 8:59 AM CDT) Only the most recent of3 resultswithin the time period is included. Sodium, P 132(L) 135 - 145 mmol/L 03/01/2025 9:34 AM CDT METH Blood (Blood, Venous) 03/01/2025 8:59 AM CDT 03/01/2025 9:11 AM CDT Constantin López M.D. LAB BLOOD ADD-ON Final Resu lt Performing Organization Address [facility] Co de Phone Number [facility] [address] [place] [address], [facility] 200 [place] [address] * Potassium (03/01/2025 8:59 AM CDT) Only the most recent of4 resultswithin the time period is included. Potassium, P 4.5 3.6 - 5.2 mmol/L 03/01/2025 9:34 AM CDT METH Blood (Blood, Venous) 03/01/2025 8:59 AM CDT 03/01/2025 9:11 AM CDT us Constantin López M.D. LAB BLOOD ADD-ON Final Resu lt Performing Organization Address City/[facility]/ZIP Co de Phone Number [facility] 200 [place] [address], [facility] 200 [place] [address] * Alkaline Phosphatase (03/01/2025 8:59 AM CDT) Only the most recent of4 resultswithin the time period is included. Alkaline Phosphatase, S 86 40 - 129 U/L 03/01/2025 9:44 AM CDT DTL Blood (Blood, Venous) 03/01/2025 8:59 AM CDT 03/01/2025 9:06 AM CDT Constantin López M.D. LAB BLOOD ADD-ON Final Resu lt Performing Organization Address City/[facility] Co de Phone Number [facility] 200 [place] [address] * Glucose, Fasting (03/01/2025 8:59 AM CDT) Only the most recent of3 resultswithin the time period is included. Glucose, P 95 70 - 100 mg/dL 03/01/2025 9:42 AM CDT DTL Last Intake 9 hr 03/01/2025 9:06 AM CDT DT Blood (Blood, Venous) 03/01/2025 8:59 AM CDT 03/01/2025 9:06 AM CDT us Constantin López M.D. LAB BLOOD NON ADD-ON Final Result Performing Organization Address [facility] de Phone Number [facility] 200 [place] [address], [place] [address] * Creatinine with Estimated GFR (03/01/2025 8:59 AM CDT) Only the most recent of5 resultswithin the time period is included. Creatinine 1.11 0.74 - 1.35 mg/dL 03/01/2025 9:34 AM CDT METH Estimated GFR (eGFR) 75 >=60 mL/min/BSA 03/01/2025 9:34 AM CDT METH Comment: Estimated GFR calculated using the 2020 CKD_EPI creatinine equation. Blood (Blood, Venous) 03/01/2025 8:59 AM CDT 03/01/2025 9:11 AM CDT Constantin López M.D. LAB BLOOD ADD-ON Final Resu lt [facility] [address] METH [facility] 200 [place] [address] * (ABNORMAL) Calcium, Total (03/01/2025 8:59 AM CDT) Only the most recent of5 resultswithin the time period is included. Calcium, Total, P 8.6(L) 8.8 - 10.2 mg/dL 03/01/2025 9:34 AM CDT METH Blood (Blood, Venous) 03/01/2025 8:59 AM CDT 03/01/2025 9:11 AM CDT Constantin López M.D. LAB BLOOD ADD-ON Final Resu lt Performing Organization Address City/[facility]/ZIP Co de Phone Number [facility] [address] METH [facility] 200 [place] [address] * Bilirubin, Direct (03/01/2025 8:59 AM CDT) Only the most recent of3 resultswithin the time period is included. Bilirubin, Direct, S 0.2 0.0 - 0.3 mg/dL 03/01/2025 9:44 AM CDT DTL Blood (Blood, Venous) 03/01/2025 8:59 AM CDT 03/01/2025 9:06 AM CDT Constantin López M.D. LAB BLOOD ADD-ON Final Resu lt [facility] 200 [place] [address], [facility] DTL [facility] 200 [place] [address] * Bilirubin, Total (03/01/2025 8:59 AM CDT) Only the most recent of4 resultswithin the time period is included. Bilirubin, Total, P 0.5 0.0 - 1.2 mg/dL 03/01/2025 9:34 AM CDT METH Blood (Blood, Venous) 03/01/2025 8:59 AM CDT 03/01/2025 9:11 AM CDT Constantin López M.D. LAB BLOOD ADD-ON Final Resu lt [facility] 200 [place] [address], [facility] METH [facility] 200 [place] [address] * Albumin (03/01/2025 8:59 AM CDT) Only the most recent of4 resultswithin the time period is included. Albumin, S 3.5 3.5 - 5.0 g/dL 03/01/2025 9:44 AM CDT DTL Blood (Blood, Venous) 03/01/2025 8:59 AM CDT 03/01/2025 9:06 AM CDT Constantin López M.D. LAB BLOOD ADD-ON Final Resu lt Performing Organization Address City/[facility]/ZIP Co de Phone Number [facility] 200 [place] [address], [facility] DTL [facility] 200 [place] [address] * MR Lumbar Spine without IV Contrast [...] focal disc protrusion or spinal stenosis. us Taxiarchis Kourelis M.D. IMG MRI PROCEDURES Nadia l Result * (ABNORMAL) Quantitative M-protein Study (02/15/2025 11:51 AM CDT) Only the most recent of2 resultswithin the time period is included. Immunoglobulin A (IgA), S 11(L) 61 - [...] developed and its performance characteristics determined by [facility] in a manner consistent with CLIA requirements. This test has not been cleared or approved by the U.S. Food and Drug Administration. Blood (Blood, Venous) 02/15/2025 11:51 AM CDT 02/15/2025 3:04 PM CDT Narrative [facility] - 02/16/2025 1:49 PM CDT Specimen Information: Specimen ID: [id number] Specimen Type: Blood Specimen Collection Start Date: 02/15/2025 11:51 AM Specimen Received Date: 02/15/2025 3:04 PM Specimen ID: [id number] Specimen Type: Blood Specimen Collection Start Date: 02/15/2025 11:51 AM Specimen Received Date: 02/15/2025 3:04 PM Constantin López M.D. LAB BLOOD ADD-ON Final Resu lt [facility] [address] [address] [facility] [address] [place] [address] [facility] [address] [place] [address] [place] [address] * (ABNORMAL) Lipid Panel (02/15/2025 11:51 AM [...] M.D. LAB BLOOD ADD-ON Final Resu lt [facility] [address] [place] [address], [facility] [address] [place] [address] * (ABNORMAL) Immunoglobulin Free Light Chains (02/15/2025 11:51 AM CDT) Only the most recent of3 resultswithin the time period is included. [place] Free Light Chain, S 146(H) 0.3300 - 1.94 mg/dL 02/15/2025 5:13 PM CDT SDSC Lambda Free Light Chain, S 0.1700(L) 0.5700 - 2.63 mg/dL 02/15/2025 4:59 PM CDT SDS [place]/Lambda FLC Ratio 859(H) 0.2600 - 1.65 02/15/2025 5:13 PM CDT [facility] Blood (Blood, Venous) 02/15/2025 11:51 AM CDT 02/15/2025 3:58 PM CDT Constantin López M.D. LAB BLOOD ADD-ON Final Resu lt [facility] [address] [place] [address] [facility] [address] [place] [address] * (ABNORMAL) Monoclonal Protein Study, Random, Urine [...] CDT SDSC M-protein Isotype MS, Random, U [place], monoclonal. ~The M-protein light chain is glycosylated. [...] developed and its performance characteristics determined by [facility] in a manner consistent with [...] López M.D. LAB URINE ORDERABLES Final Result [facility] [place] [address] [place] [address] DTL [facility] [address] [place] [address] [facility] [address] [place] [address] [place] [address] * DX Foot Bilateral 3+ Views (02/11/2025 [...] at the 1st MCPjoints. Calcaneal plantar spurs. us Constantin López M.D. IMG DIAGNOSTIC IMAGING PROC EDURES Final Result * Thyroid Function [place] (02/11/2025 8:46 AM CDT) Pathologist [facility] TSH, Sensitive 3.2 0.3 - 4.2 mIU/L 02/11/2025 9:55 AM CDT DTL Blood (Blood, Venous) 02/11/2025 8:46 AM CDT 02/11/2025 9:06 AM CDT Constantin López M.D. LAB BLOOD ADD-ON Final Resu lt [facility] [address] [place] [address], [facility] [address] [place] [address] * HBV DNA Detect/Quant, Serum (02/11/2025 8:46 AM CDT) Pathologist [facility] HBV DNA Detect/Quant, S Undetected Undetected IU/mL 02/12/2025 6:37 PM CDT [facility] Comment: Result in log IU/mL is Undetected. ----ADDITIONAL INFORMATION---- The quantification range of this assay is 10 to 1,000,000,000 IU/mL (1.00 log to 9.00 log IU/mL). Testing was performed using the riaz HBV test ([employer] Blood (Blood, Venous) 02/11/2025 8:46 AM CDT 02/11/2025 11:31 AM CDT Constantin López M.D. LAB MICROBIOLOGY - BLOOD OR DERABLES Final Result Performing Organization Address [facility]/ZIP Co de Phone Number [facility] [address] [place] [address] [facility] [address] [place] [address] [place] [address] * APTT (Activated Partial Thromboplastin Time) (02/11/2025 8:46 AM CDT) Activated Partial Thrombopl Time, P 25 25 - 37 sec 02/11/2025 9:38 AM CDT DTL Blood (Blood, Venous) 02/11/2025 8:46 AM CDT 02/11/2025 9:18 AM CDT Constantin López M.D. LAB BLOOD ADD-ON Final Resu lt Performing Organization Address [facility]/ZIP Co de Phone Number [address] [address], [facility] DTL [facility] 200 [place] [address] * Prothrombin Time (PT) (02/11/2025 8:46 AM CDT) Prothrombin Time, P 11.9 9.4 - 12.5 sec 02/11/2025 9:38 AM CDT DTL INR 1.1 0.9 - 1.1 02/11/2025 9:38 AM CDT DTL Comment: ----ADDITIONAL INFORMATION---- Standard intensity warfarin therapeutic range: 2.0 to 3.0 High intensity warfarin therapeutic range: 2.5 to 3.5 Blood (Blood, Venous) 02/11/2025 8:46 AM CDT 02/11/2025 9:18 AM CDT Constantin López M.D. LAB BLOOD ADD-ON Final Resu lt [facility] [address] 200 [place] [address] * (ABNORMAL) CRP (C-Reactive Protein) (02/11/2025 8:46 AM CDT) C-Reactive Protein (CRP), S 10.7(H) <5.0 mg/L 02/11/2025 9:55 AM CDT DT Blood (Blood, Venous) 02/11/2025 8:46 AM CDT 02/11/2025 9:06 AM CDT Constantin López M.D. LAB BLOOD ADD-ON Final Resu Performing Organization Address [facility]/ZIP Co de Phone Number [facility] 200 [place] [address] * (ABNORMAL) 25-Hydroxyvitamin D2 and D3 (02/11/2025 8:41 AM CDT) 25-Hydroxy D2 <4.0 ng/mL 02/16/2025 11:09 AM CDT [facility] 25-Hydroxy D3 19 ng/mL 02/16/2025 11:09 AM CDT [facility] 25-Hydroxy D Total 19(L) ng/mL 2024 11:09 AM CDT [facility] Comment: Interpretation: 10-19 ng/mL (mild to moderate deficiency) ----REFERENCE VALUE---- 25-HYDROXY D TOTAL (D2+D3) Optimum levels in the healthy population are 20-50. ----ADDITIONAL INFORMATION---- This test was developed and its performance characteristics determined by [facility] in a manner consistent with CLIA requirements. This test has not been cleared or approved by the U.S. Food and Drug Administration. Blood (Blood, Venous) 02/11/2025 8:41 AM CDT 02/15/2025 7:51 AM CDT Constantin López M.D. LAB BLOOD ADD-ON Final Resu lt Performing Organization Address City/[facility]/ZIP Co de Phone Number [facility] [address] [place] [address] [facility] [address] [place] [address] [place] [address] * (ABNORMAL) CBC, Chemotherapy, No Alerts (02/08/2025 3:02 PM CDT) [facility] Hemoglobin 10.3(L) 13.2 - 16.6 g/dL 02/08/2025 3:11 PM CDT [facility] Platelet Count 255 135 - 317 x10(9)/L 02/08/2025 3:11 PM CDT [facility] Leukocytes 5.6 3.4 - 9.6 x10(9)/L 02/08/2025 3:11 PM CDT [facility] Neutrophils 2.68 1.56 - 6.45 x10(9)/L 02/08/2025 3:11 PM CDT [facility] Blood (Blood, Venous) 02/08/2025 3:02 PM CDT 02/08/2025 3:09 PM CDT Harshad Conti M.D. LAB BLOOD ADD-ON Final Result Performing Organization Address City/[facility]/ZIP Co de Phone Number [facility] [address] [place] [address], [place] METH [facility] [address] [place] [address] DHPM [facility] [address] [place] [address] * EMG (02/08/2025 11:42 AM CDT) 02/08/2025 12:3 0 PM CDT Narrative [facility] EMG - 02/08/2025 2:41 PM CDT Table formatting from the original result was not included. 08-Feb-2025 Electromyography Final Report Study Number: 1 EMG Infection Control Specialist: Duran Allan [phone] or [phone] Referred by: HARSHAD CONTI ([phone] or [phone]) Referred for: Back pain, Sciatica Referral Code: [...] the interpretation. Hanane Lewis/Hanane Allan (127 or [phone])/SMB NERVE CONDUCTIONS Record Rep Normal Normal Distal [...] Electromyography Final Report Study Number: 1 EMG Infection Control Specialist: Duran Allan [phone] or [phone] Referred by: HARSHAD CONTI (127 or [phone]) Referred for: Back pain, Sciatica Referral Code: [...] with theinterpretation. Hanane Lewis/Hanane Allan (127 or [phone])/SMB NERVE CONDUCTIONS Record Rep Normal Normal Distal [...] and hip joints. us Harshad Conti M.D. [facility] DIAGNOSTIC IMAGING PROCEDURES Final Result * LD (Lactate Dehydrogenase) (02/03/2025 9:13 AM CDT) Only the most recent of2 resultswithin the time period is included. Lactate Dehydrogenase (LD), S 141 122 - 222 U/L 02/03/2025 10:17 AM CDT DTL Blood (Blood, Venous) 02/03/2025 9:13 AM CDT 02/03/2025 9:34 AM CDT Harshad Conti M.D. LAB BLOOD NON ADD-ON Fi nal Result [facility] [address] [place] [address], [facility] [address] [place] [address] * (ABNORMAL) Basic Metabolic Panel (02/03/2025 9:13 AM CDT) Pathologist [facility] Potassium, S 4.1 3.6 - 5.2 mmol/L [...] 9:13 AM CDT 02/03/2025 9:34 AM CDT Harshad Conti M.D. LAB BLOOD ADD-ON Final Result [facility] [address] [place] [address], [facility] DTL [facility] [address] [place] [address] * Myeloma Stratification and Risk-Adapted Therapy with [...] developed and its performance characteristics determined by [facility] in a manner consistent with CLIA requirements. This test has not been cleared or approved by the U.S. Food and Drug Administration. Bone Marrow 01/28/2025 1:25 PM CDT 01/28/2025 2:49 PM CDT us Harshad Conti M.D. LAB PATHOLOGY/CYTOLOGY ORDERABLES Final Result [facility] [address] [place] [address], [facility] DT [address] [place] [address] * mSMART Plasma Cell Proliferative Disorder Pre-Analysis Cell Sorting (01/28/2025 1:25 PM CDT) Pathologist [facility] MPCDS Pre-Analysis Cell Sort Performed 01/29/2025 6:24 PM [...] developed and its performance characteristics determined by [facility] in a manner consistent with CLIA requirements. This test has not been cleared or approved by the U.S. Food and Drug Administration. Bone Marrow 01/28/2025 1:25 PM CDT 01/28/2025 9:36 PM CDT Harshad Cnoti M.D. LAB GENETIC TESTING Fin al Result [facility] [address] [place] [address], [facility] DT [address] [facility] [address] [place] [address] * mSMART, Plasma Cell Proliferative Disorder, FISH (01/28/2025 1:25 PM CDT) [facility] Summary Standard-Risk 02/07/2025 3:18 PM CDT DTL mSMART Evaluation Based on the mSMART algorithm, this patient is in the STANDARD RISK category. 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 The [facility] Stratification for Myeloma and Risk Adapted Therapy [...] developed and its performance characteristics determined by [facility] in a manner consistent with [...] Method: Manual Probe vendors include: LDT = [facility] Developed AM = [employer] ([place], [place]) 02/07/2025 3:18 PM CDT DTL Interpretation The result is abnormal and indicates a hyperdiploid plasma cell clone based on DNA ploidy results (reported separately). 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 In plasma cell myeloma, hyperdiploidy represents a standard risk cytogenetic abnormality (Chandrakant Boo et al., Nature Reviews Clinical Oncology 15:409-421, 2018). In smoldering myeloma and monoclonal gammopathy of undetermined significance (MGUS), hyperdiploidy represents an intermediate risk cytogenetic abnormality (Lennox, et al., Blood 125:2439-9685, 2015; Joe, et al., Leukemia 32:5837-8714, 2018). In amyloidosis, the prognostic significance is less well defined. In plasma cell myeloma and smoldering myeloma, a MYC rearrangement has been associated with a significant risk of disease progression (Misund, et al. ,Leukemia 34:322-326, 2020 and Neha, et al., Clin Cancer Res 15:1257-8155, 2020). The overall risk assessment should be done in the context of other risk factors. This test was ordered in the context of a [facility] pathology consultation/case (#[id number]), and this result should be interpreted within the context of the pathology consultation/repor t. 02/07/2025 3:18 PM CDT DTL Bone Marrow 01/28/2025 1:25 PM CDT 01/28/2025 9:36 PM CDT us Harshad Conti M.D. LAB GENETIC TESTING Fin al Result [facility] [address] [place], [place] [address] [place] [address] [address] [facility] [address] [place] [address] * Hematologic Disorders, DNA and RNA Extract [...] Molecular Hematopathology Laboratory's test catalog, please contact [facility] at [phone]. Method summary: DNA and RNA were extracted from the received specimen and stored at -80 C. This test was developed and its performance characteristics determined by [facility] in a manner consistent with CLIA requirements. This test has not been cleared or approved by the U.S. Food and Drug Administration. 01/28/2025 1:04 PM CDT 01/31/2025 7:46 AM CDT Harshad Conti M.D. LAB GENETIC TESTING Fin al Result [facility] [address] [place] [address], [facility] DT [address] [place] [address] * [place] NO CHARGE VISIT (01/28/2025 1:00 PM CDT) Bone Marrow Narrative Jd Hester R.N. - 01/28/2025 1:00 PM CDT Jd Hester R.N. 01/28/2025 1:27 PM Bone Marrow Research Aspirate Add On Collection Performed by: Jd Hester R.N. Authorized by: Natalie Ann M.D. POST-PROCEDURE DETAILS Procedure completed successfully: yes Complications: no apparent complications Natalie Ann M.D. PROCEDURE/MINOR SURGICAL ORDERABLES Final Result * VA DX BONE MARROW BX & ASPIR (01/28/2025 1:00 PM CDT) Bone Marrow Narrative MMODAL - 01/28/2025 1:00 PM CDT Jd Hester R.N. 01/28/2025 1:27 PM Biopsy Bone Marrow, Unsedated Performed by: Jd Hester R.N. Authorized by: Harshad Conti M.D. Care team members present 1. Jd [...] COMMENTS Lidocaine 1% 200 mg. Two attempts/biopsy. us Harshad Conti M.D. PROCEDURE/MINOR SURGICA L ORDERABLES Final Result MMODAL NA * [facility] [id number] Ahmann Myeloma (01/28/2025 11:56 AM CDT) Research 3x6 mL ACD Collected DEFAULT 01/28/2025 11:56 AM CDT HSS Research 1x10 mL Red Collected DEFAULT 01/28/2025 11:56 AM CDT HSS Blood (Blood, Venous) 01/28/2025 11:56 AM CDT 01/28/2025 11:56 AM CDT Narrative [facility] - 01/28/2025 11:56 AM CDT Specimen Information: Specimen ID: [id number] Specimen Type: Blood Specimen Collection Start Date: 01/28/2025 11:56 AM Specimen Received Date: 01/28/2025 11:56 AM Specimen ID: [id number] Specimen Type: Blood Specimen Collection Start Date: 01/28/2025 11:56 AM Specimen Received Date: 01/28/2025 11:56 AM Specimen ID: [id number] Specimen Type: Blood Specimen Collection Start Date: 01/28/2025 11:56 AM Specimen Received Date: 01/28/2025 11:56 AM Specimen ID: [id number] Specimen Type: Blood Specimen Collection Start Date: 01/28/2025 11:56 AM Specimen Received Date: 01/28/2025 11:56 AM Specimen ID: [id number] Specimen Collection Start Date: 01/28/2025 11:43 AM Specimen Received Date: 01/28/2025 11:43 AM Specimen ID: [id number] Specimen Collection Start Date: 01/28/2025 11:43 AM Specimen Received Date: 01/28/2025 11:43 AM us Natalie Ann M.D. LAB BLOOD ADD-ON Final R esult Performing Organization Address City/[facility]/ZIP Co de Phone Number [facility] [address] [place] [address] * [facility] Research, Blood (01/28/2025 11:56 AM CDT) Number of Specimens 1 01/28/2025 11:56 AM CDT [facility] Blood (Blood, Venous) 01/28/2025 11:56 AM CDT 01/28/2025 11:56 AM CDT us Natalie Ann M.D. LAB RESEARCH NO RESULT R OUTING Final Result [facility] [address] [place] [address] * Special Red Cell Antigen Typing (01/28/2025 11:56 AM CDT) Special Red Cell Antigen * 01/28/2025 12:43 PM CDT DTL Comment:K- Blood 01/28/2025 11:5 6 AM CDT 01/28/2025 12:24 PM CDT us Harshad Conti M.D. LAB BLOOD BANK TEST ORD ERABLES Final Result Performing Organization Address City/[facility] Co de Phone Number [facility] [address] [place] [address], [facility] DTL [facility] [address] [place] [address] * Type and Screen (with Reflex Antibody ID) (01/28/2025 11:56 AM CDT) ABORh O Pos Not applicable 01/28/2025 12:58 PM CDT ETRM Antibody Screen Negative Negative 01/28/2025 1:09 PM CDT ETRM Type & Screen Expiration 01/31/2025 23:59 01/28/2025 12:58 PM CDT ETRM Testing Location [place] DEFAULT 01/28/2025 12:28 PM CDT ETRM Blood (Blood, Venous) 01/28/2025 11:56 AM CDT 01/28/2025 12:28 PM CDT us Harshad Conti M.D. LAB BLOOD BANK TEST ORD ERABLES Final Result Performing Organization Address [facility] Co de Phone Number [facility] [address] [place] [address], [facility] ETRM [facility] [address] [place] [address] * (ABNORMAL) Xynq-5-Zdlosrseggezh (Beta-2-M) (01/28/2025 11:56 AM CDT) Mlwk-2-Pxtemmo obulin, S 8.55(H) 1.21 - 2.70 mcg/mL 01/28/2025 5:49 PM CDT [facility] Blood (Blood, Venous) 01/28/2025 11:56 AM CDT 01/28/2025 4:19 PM CDT us Harshad Conti M.D. LAB BLOOD ADD-ON Final Result [facility] [address] [place] [address] [facility] [address] [place] [address] * (ABNORMAL) CBC with Differential and Citrated Platelet Count, Blood (01/28/2025 11:55 AM CDT) Hemoglobin 10.5(L) 13.2 - 16.6 g/dL 01/28/2025 [...] AM CDT 01/28/2025 12:15 PM CDT Narrative [facility] - 01/28/2025 3:08 PM CDT Specimen Information: Specimen ID: [id number] Specimen Type: Blood Specimen Collection Start Date: 01/28/2025 11:55 AM Specimen Received Date: 01/28/2025 12:15 PM Specimen ID: [id number] Specimen Type: Blood Specimen Collection Start Date: 01/28/2025 11:55 AM Specimen Received Date: 01/28/2025 12:15 PM Harshad Conti M.D. LAB BLOOD NON ADD-ON Fi nal Result [facility] [address] [place] [address], [facility] [address] [place] [address] * (ABNORMAL) Monoclonal Protein Study, 24 hour, [...] SDSC M-protein Isotype MS, 24 HR, U [place], monoclonal. ~The M-protein light chain is glycosylated. [...] developed and its performance characteristics determined by [facility] in a manner consistent with [...] 11:42 AM CDT 01/28/2025 2:53 PM CDT Harshad Conti M.D. LAB URINE ORDERABLES nal Result [facility] [place] [address] [place] [address] [facility] [address] [place] [address] [facility] [address] [place] [address] [place] [address] * Hematopathology (01/28/2025 12:00 AM CDT) 01/31/2025 6:06 PM CDT [facility] Report electronically signed by Tammy Funk M.D., Ph.D. I verify that I have examined all relevant slides/materials for the specimen(s) and rendered or confirmed the diagnosis. 01/31/2025 6:06 PM CDT [facility] Gross Description B: Core biopsy specimens were received in B5 and were subsequently placed in formalin. Received in formalin labeled with the patient's name, medical record number, and bone marrow biopsy are two dqvtk-[id number] bone marrow cores and two fragments, 0.3 [...] C1. Grossed by QUINN. 01/31/2025 6:06 PM T [facility] Interpretation FINAL DIAGNOSIS Peripheral blood, bone marrow [...] stain, bone marrow biopsy: Amyloid is absent. [facility] flow cytometric immunophenotyping, bone marrow: 1. Plasma [...] date of extraction. 01/31/2025 6:06 PM CDT [facility] 01/28/2025 01/28/2025 2:0 9 PM CDT Harshad Conti M.D. LAB SURG PATH ORDERABLE S Final Result Performing Organization Address [facility] Co de Phone Number [facility] [address] [place] [address], [facility] [address] [facility] [address] [place] [address] * ECG 12 Lead (01/27/2025 12:01 PM CDT) Pathologist [facility] Ventricular Rate ECG/Min 84 BPM MUSE VA Interval 148 ms MUSE QRSD Interval 74 ms MUSE QT Interval 374 ms MUSE QTC Interval 441 ms MUSE P [place] 28 degrees MUSE R [place] -13 degrees MUSE T Wave [place] 30 degrees MUSE 01/27/2025 12:0 1 PM CDT 01/27/2025 12:15 PM CDT Impressions MUSE - 01/27/2025 12:15 PM CDT Normal sinus rhythm Normal ECG No previous ECGs available Reviewed by ROBYN Esquivel Narrative Procedure Note Harpal London Jr., M.D. - 01/27/2025 IMPRESSION: Normal sinus rhythm Normal ECG No previous ECGs available Reviewed by ROBYN Esquivel Harshad Conti M.D. ECG ORDERABLES Final R esult Performing Organization Address City/[facility]/ZIP Co de Phone Number MUSE NA * HIV-1/-2 Ag and Ab Screen, Plasma (01/27/2025 11:20 AM CDT) Pathologist [facility] HIV-1/-2 Ag and Ab Screen, P Negative Negative 01/27/2025 3:18 PM CDT [facility] Comment: Negative result does not rule out HIV infection. If exposure to HIV infection occurred <14 days ago, contact the laboratory to request addition of HIV-1/HIV-2 RNA detection, Plasma (HIP12). Blood (Blood, Venous) 01/27/2025 11:20 AM CDT 01/27/2025 2:05 PM CDT Harshad Conti M.D. LAB MICROBIOLOGY - BLOO D ORDERABLES Final Result Performing Organization Address [facility] Co de Phone Number [facility] [address] [place] [address] [facility] [address] [place] [address] * Plasma Cell Assessment (01/27/2025 11:20 AM CDT) [facility] Blood Plasma Cell Light Chain Monotypic kappa [...] reagent. Its performance characteristics were determined by [facility] in a manner consistent with CLIA requirements. This test has not been cleared or approved by the U.S. Food and Drug Administration. Blood (Blood, Venous) 01/27/2025 11:20 AM CDT 01/27/2025 11:46 AM CDT us Harshad Cotni M.D. LAB BLOOD NON ADD-ON Fi nal Result Performing Organization Address [facility]/ZIP Co de Phone Number [facility] [address] [place] [address], [place] DTL [address] [place] [address] * (ABNORMAL) NT-Pro B-Type Natriuretic Peptide (BNP) (01/27/2025 11:20 AM CDT) Pathologist [facility] NT-Pro BNP 685(H) <=88 pg/mL 01/27/2025 12:34 PM CDT [facility] Comment: NT-proBNP values less than 300 pg/mL [...] AM CDT 01/27/2025 11:42 AM CDT Harshad Conti M.D. LAB BLOOD ADD-ON Final Result Performing Organization Address City/[facility]/ZIP Co de Phone Number [facility] [address] [place] [address], [facility] [address] [place] [address] * HBc Total Ab, Serum (01/27/2025 11:20 AM CDT) [facility] HBc Total Ab, S Negative Negative 01/27/2025 4:02 PM CDT [facility] Blood (Blood, Venous) 01/27/2025 11:20 AM CDT 01/27/2025 3:02 PM CDT Harshad Conti M.D. LAB MICROBIOLOGY - BLOO D ORDERABLES Final Result [facility] [address] [place] [address] [facility] [address] [place] [address] * HBs Antibody, Serum (01/27/2025 11:20 AM CDT) [facility] HBs Antibody, S Positive 4:02 PM CDT [facility] Comment: Patient is considered to have been exposed to HBV or immune from HBV vaccination. ----REFERENCE VALUE---- Unvaccinated: Negative Vaccinated: Positive HBs Antibody, Quantitative, S 201 mIU/mL 01/27/2025 4:02 PM CDT [facility] Comment: ----REFERENCE VALUE---- Unvaccinated: <8.5 mIU/mL Vaccinated: >=11.5 mIU/mL Blood (Blood, Venous) 01/27/2025 11:20 AM CDT 01/27/2025 3:02 PM CDT Harshad Conti M.D. LAB MICROBIOLOGY - BLOO D ORDERABLES Final Result Performing Organization Address City/[facility]/ZIP Co de Phone Number [facility] [address] [place] [address] [facility] [address] [place] [address] * Hepatitis B Surface Antigen (01/27/2025 11:20 AM CDT) HBs Antigen, S Negative Negative 01/27/2025 4:02 PM CDT [facility] Blood (Blood, Venous) 01/27/2025 11:20 AM CDT 01/27/2025 3:02 PM CDT Harshad Conti M.D. LAB MICROBIOLOGY - BLOO D ORDERABLES Final Result Performing Organization Address City/[facility]/ZIP Co de Phone Number [facility] [address] [place] [address] [facility] [address] [place] [address] * (ABNORMAL) Uric Acid (01/27/2025 11:20 AM CDT) Uric Acid, S 9.1(H) 3.7 - 8.0 mg/dL 01/27/2025 12:34 PM CDT DTL Blood (Blood, Venous) 01/27/2025 11:20 AM CDT 01/27/2025 11:42 AM CDT Harshad Conti M.D. LAB BLOOD ADD-ON Final Result [facility] [address] [place] [address], [facility] [address] [place] [address] * (ABNORMAL) Troponin T, 5th Generation (01/27/2025 11:20 AM CDT) Troponin T, 5th gen 17(H) <=15 ng/L 01/27/2025 12:52 PM CDT DTL Blood (Blood, Venous) 01/27/2025 11:20 AM CDT 01/27/2025 11:42 AM CDT Harshad Conti M.D. LAB BLOOD ADD-ON Final Result Performing Organization Address City/[facility]/ZIP Co de Phone Number [facility] [address] [place] [address], [facility] [address] [place] [address] * Interpretation of Outside NM PET Scan [...] may bereactive. * Deauville score: 5 Harshad Conti M.D. [facility] PROCEDURES Edite d Result - Final * Outside RI Pet (01/20/2025 12:00 AM CDT) 01/20/2025 8:12 PM CDT Addenda Addendum by Carista App, Outside on 01/20/2025 8:12 PM CDT BELOW REPORT RECEIVED BY [facility] ON 01/25/2025 15:05:49 [id number] For Patients: As a result of the 21st Century Cures Act, medical imaging exams and procedure reports are released immediately into your electronic medical record. You may view this report before your referring provider. If you have questions, please contact your health care provider. EXAM: FDG PET-CT Skull Base to Thighs CLINICAL INFORMATION: 60-year-old man with history of lytic osseous lesions. PET CT ordered for additional characterization. TECHNIQUE: Radiopharmaceutical: 18F-fluorodeoxyglucose (18F-FDG) Dose: 40.0 milliCurie. Blood glucose: 92 mg/dL. Image acquisition: At approximately 60 minutes following IV tracer administration via a right antecubital vein, positron emission tomography was performed from the skull base through the mid thigh. Non-contrast low-dose helical CT imaging was performed over the same range without breath-hold for attenuation correction of PET images and anatomic correlation; it is neither sufficient, nor should it be substituted for diagnostic purposes. COMPARISON: CT chest abdomen pelvis 01/17/2025. FINDINGS: Mediastinal blood pool FDG uptake: SUVMax 2.1 (Image 83) Liver background parenchymal FDG uptake: SUVMax 3.2 (image 123) PET Findings: No abnormal FDG avid lymphadenopathy. Diffuse intense FDG uptake in the axial [...] fracture in L3 demonstrates SUV max 15.4. Diffusely increased splenic uptake. Tracer uptake elsewhere is physiologic. Non-PET findings: Upper lung predominant emphysema. Coronary artery calcifications. Atherosclerotic calcifications of the thoracic and abdominal aorta. 4.1 x 4.1 cm ascending thoracic aortic aneurysm. Prostatomegaly. Subcentimeter hypodensities in the liver, too small to characterize but statistically likely cysts. Multilevel degenerative changes in the spine. Impression: 1. Diffuse intense FDG uptake in [...] versus a response to systemic inflammatory process Dictated by Alban Benitez MD @ 01/20/2025 8:12:06 PM (Electronically Signed) READ BY Alban Benitez RELEASED BY WALE Addendum by Carista App, Outside on 01/20/2025 8:12 PM CDT BELOW REPORT RECEIVED BY [facility] ON 01/25/2025 14:59:59 [id number] For Patients: As a result of the Century Cures Act, medical imaging exams and procedure reports are released immediately into your electronic medical record. You may view this report before your referring provider. If you have questions, please contact your health care provider. EXAM: FDG PET-CT Skull Base to Thighs CLINICAL INFORMATION: 60-year-old man with history of lytic osseous lesions. PET CT ordered for additional characterization. TECHNIQUE: Radiopharmaceutical: 18F-fluorodeoxyglucose (18F-FDG) Dose: 40.0 milliCurie. Blood glucose: 92 mg/dL. Image acquisition: At approximately 60 minutes following IV tracer administration via a right antecubital vein, positron emission tomography was performed from the skull base through the mid thigh. Non-contrast low-dose helical CT imaging was performed over the same range without breath-hold for attenuation correction of PET images and anatomic correlation; it is neither sufficient, nor should it be substituted for diagnostic purposes. COMPARISON: CT chest abdomen pelvis 01/17/2025. FINDINGS: Mediastinal blood pool FDG uptake: SUVMax 2.1 (Image 83) Liver background parenchymal FDG uptake: SUVMax 3.2 (image 123) PET Findings: No abnormal FDG avid lymphadenopathy. Diffuse intense FDG uptake in the axial [...] fracture in L3 demonstrates SUV max 15.4. Diffusely increased splenic uptake. Tracer uptake elsewhere is physiologic. Non-PET findings: Upper lung predominant emphysema. Coronary artery calcifications. Atherosclerotic calcifications of the thoracic and abdominal aorta. 4.1 x 4.1 cm ascending thoracic aortic aneurysm. Prostatomegaly. Subcentimeter hypodensities in the liver, too small to characterize but statistically likely cysts. Multilevel degenerative changes in the spine. Impression: 1. Diffuse intense FDG uptake in [...] versus a response to systemic inflammatory process Dictated by Alban Benitez MD @ 01/20/2025 8:12:06 PM (Electronically Signed) READ BY Alban Benitez RELEASED BY WALE Addendum by Carista App, Outside on 01/20/2025 8:12 PM CDT BELOW REPORT RECEIVED BY [facility] ON 01/25/2025 14:58:24 [id number] For Patients: As a result of the Century Cures Act, medical imaging exams and procedure reports are released immediately into your electronic medical record. You may view this report before your referring provider. If you have questions, please contact your health care provider. EXAM: FDG PET-CT Skull Base to Thighs CLINICAL INFORMATION: 60-year-old man with history of lytic osseous lesions. PET CT ordered for additional characterization. TECHNIQUE: Radiopharmaceutical: 18F-fluorodeoxyglucose (18F-FDG) Dose: 40.0 milliCurie. Blood glucose: 92 mg/dL. Image acquisition: At approximately 60 minutes following IV tracer administration via a right antecubital vein, positron emission tomography was performed from the skull base through the mid thigh. Non-contrast low-dose helical CT imaging was performed over the same range without breath-hold for attenuation correction of PET images and anatomic correlation; it is neither sufficient, nor should it be substituted for diagnostic purposes. COMPARISON: CT chest abdomen pelvis 01/17/2025. FINDINGS: Mediastinal blood pool FDG uptake: SUVMax 2.1 (Image 83) Liver background parenchymal FDG uptake: SUVMax 3.2 (image 123) PET Findings: No abnormal FDG avid lymphadenopathy. Diffuse intense FDG uptake in the axial [...] fracture in L3 demonstrates SUV max 15.4. Diffusely increased splenic uptake. Tracer uptake elsewhere is physiologic. Non-PET findings: Upper lung predominant emphysema. Coronary artery calcifications. Atherosclerotic calcifications of the thoracic and abdominal aorta. 4.1 x 4.1 cm ascending thoracic aortic aneurysm. Prostatomegaly. Subcentimeter hypodensities in the liver, too small to characterize but statistically likely cysts. Multilevel degenerative changes in the spine. Impression: 1. Diffuse intense FDG uptake in [...] versus a response to systemic inflammatory process Dictated by Alban Benitez MD @ 01/20/2025 8:12:06 PM (Electronically Signed) READ BY Alban Benitez RELEASED BY WALE Narrative IMAGING - 01/25/2025 3:38 PM CDT This order has been created and auto-finalized to support the import of outside images. If available, original interpretation can be found on the Media Tab in Chart Review, in Document Viewer, as an image in InfinityView or as an Addendum. If a re-interpretation or overread is required please follow defined workflow. Procedure Note Digital Media, Outside - 01/25/2025 This order has been created and auto-finalized to support the import ofoutside images. If available, original interpretation can be found on theMedia Tab in Chart Review, in Document Viewer, as an image in InfinityViewor as an Addendum. If a re-interpretation or overread is required please follow definedworkflow. us Provider Not In System IMG NM PROCEDURES Edited Result - Final IMAGING NA * Outside CT Body (01/17/2025 9:50 AM CDT) 01/17/2025 12:0 7 PM CDT Addenda Addendum by Carista App, Outside on 01/17/2025 12:06 PM CDT BELOW REPORT RECEIVED BY [facility] ON 01/25/2025 15:11:21 [id number] For Patients: As a result of the Century Cures Act, medical imaging exams and procedure reports are released immediately into your electronic medical record. You may view this report before your referring provider. If you have questions, please contact your health care provider. Indication: weight loss former smoker Technique: CT CHEST/ABD/PELVIS W Omnipaque 350 100 ML intravenous contrast Please note that all CT scans at this facility use dose modulation, iterative reconstruction, and/or weight-based dosing when appropriate to reduce radiation dose to as low as reasonably achievable. Comparison: 08/03/2012 Findings: In the chest, innumerable lucencies throughout the osseous structures noted measure up to 1.5 cm. No pathologic fracture. No mediastinal, hilar or axillary adenopathy. No pleural or pericardial effusion. No infiltrate or edema. No fibrosis. No suspicious pulmonary nodule. In the abdomen, low-density structures in the liver are present which measure up to 1.4 cm appear to represent cysts. Gallbladder normal. Spleen unremarkable. Incidental spleen. Normal adrenal glands. Pancreas normal. Kidneys are normal. Normal patency of the portal vein. No retroperitoneal or mesenteric adenopathy. In the pelvis, no pelvic or inguinal adenopathy. The bladder is normal. Normal ureters. A few prostate calcifications are present. No bowel obstruction, free air, free fluid or abscess. Normal appendix. Innumerable osseous lucencies are present throughout the lumbar spine and pelvis, including a large lucency involving nearly the entirety of the L3 vertebral body with associated central compression. Impression: Diffusely abnormal osseous structures with innumerable lytic lesions present, new from CT 2012. Pathologic fracture and centrally involving the superior endplate of L3. No adenopathy in the chest, abdomen or pelvis. Intrahepatic cysts are present measuring up to 1.4 cm. Further evaluation with CT PET is recommended as the source of metastatic disease is not identified. Also, a liver MRI should be considered to confirm intrahepatic cysts. Please note that all CT scans at this facility use dose modulation, iterative reconstruction, and/or weight-based dosing when appropriate to reduce radiation dose to as low as reasonably achievable. Dictated by Joey Lopez MD @ 01/17/2025 12:06:55 PM (Electronically Signed) READ BY Joey Lopez RELEASED BY YUNIER Addendum by Carista App, Outside on 01/17/2025 12:06 PM CDT BELOW REPORT RECEIVED BY [facility] ON 01/25/2025 15:07:49 [id number] For Patients: As a result of the Century Cures Act, medical imaging exams and procedure reports are released immediately into your electronic medical record. You may view this report before your referring provider. If you have questions, please contact your health care provider. Indication: weight loss former smoker Technique: CT CHEST/ABD/PELVIS W Omnipaque 350 100 ML intravenous contrast Please note that all CT scans at this facility use dose modulation, iterative reconstruction, and/or weight-based dosing when appropriate to reduce radiation dose to as low as reasonably achievable. Comparison: 08/03/2012 Findings: In the chest, innumerable lucencies throughout the osseous structures noted measure up to 1.5 cm. No pathologic fracture. No mediastinal, hilar or axillary adenopathy. No pleural or pericardial effusion. No infiltrate or edema. No fibrosis. No suspicious pulmonary nodule. In the abdomen, low-density structures in the liver are present which measure up to 1.4 cm appear to represent cysts. Gallbladder normal. Spleen unremarkable. Incidental spleen. Normal adrenal glands. Pancreas normal. Kidneys are normal. Normal patency of the portal vein. No retroperitoneal or mesenteric adenopathy. In the pelvis, no pelvic or inguinal adenopathy. The bladder is normal. Normal ureters. A few prostate calcifications are present. No bowel obstruction, free air, free fluid or abscess. Normal appendix. Innumerable osseous lucencies are present throughout the lumbar spine and pelvis, including a large lucency involving nearly the entirety of the L3 vertebral body with associated central compression. Impression: Diffusely abnormal osseous structures with innumerable lytic lesions present, new from CT 2013. Pathologic fracture and centrally involving the superior endplate of L3. No adenopathy in the chest, abdomen or pelvis. Intrahepatic cysts are present measuring up to 1.4 cm. Further evaluation with CT PET is recommended as the source of metastatic disease is not identified. Also, a liver MRI should be considered to confirm intrahepatic cysts. Please note that all CT scans at this facility use dose modulation, iterative reconstruction, and/or weight-based dosing when appropriate to reduce radiation dose to as low as reasonably achievable. Dictated by Joey Lopez MD @ 01/17/2025 12:06:55 PM (Electronically Signed) READ BY Joey Lopez RELEASED BY YUNIER Addendum by Carista App, Outside on 01/17/2025 12:06 PM CDT BELOW REPORT RECEIVED BY [facility] ON 01/25/2025 15:06:39 [id number] For Patients: As a result of the Century Cures Act, medical imaging exams and procedure reports are released immediately into your electronic medical record. You may view this report before your referring provider. If you have questions, please contact your health care provider. Indication: weight loss former smoker Technique: CT CHEST/ABD/PELVIS W Omnipaque 350 100 ML intravenous contrast Please note that all CT scans at this facility use dose modulation, iterative reconstruction, and/or weight-based dosing when appropriate to reduce radiation dose to as low as reasonably achievable. Comparison: 08/03/2012 Findings: In the chest, innumerable lucencies throughout the osseous structures noted measure up to 1.5 cm. No pathologic fracture. No mediastinal, hilar or axillary adenopathy. No pleural or pericardial effusion. No infiltrate or edema. No fibrosis. No suspicious pulmonary nodule. In the abdomen, low-density structures in the liver are present which measure up to 1.4 cm appear to represent cysts. Gallbladder normal. Spleen unremarkable. Incidental spleen. Normal adrenal glands. Pancreas normal. Kidneys are normal. Normal patency of the portal vein. No retroperitoneal or mesenteric adenopathy. In the pelvis, no pelvic or inguinal adenopathy. The bladder is normal. Normal ureters. A few prostate calcifications are present. No bowel obstruction, free air, free fluid or abscess. Normal appendix. Innumerable osseous lucencies are present throughout the lumbar spine and pelvis, including a large lucency involving nearly the entirety of the L3 vertebral body with associated central compression. Impression: Diffusely abnormal osseous structures with innumerable lytic lesions present, new from CT 2013. Pathologic fracture and centrally involving the superior endplate of L3. No adenopathy in the chest, abdomen or pelvis. Intrahepatic cysts are present measuring up to 1.4 cm. Further evaluation with CT PET is recommended as the source of metastatic disease is not identified. Also, a liver MRI should be considered to confirm intrahepatic cysts. Please note that all CT scans at this facility use dose modulation, iterative reconstruction, and/or weight-based dosing when appropriate to reduce radiation dose to as low as reasonably achievable. Dictated by Joey Lopez MD @ 01/17/2025 12:06:55 PM (Electronically Signed) READ BY Joey Lopez RELEASED BY YUNIER Narrative IMAGING - 01/25/2025 3:47 PM CDT This order has been created and auto-finalized to support the import of outside images. If available, original interpretation can be found on the Media Tab in Chart Review, in Document Viewer, as an image in InfinityView or as an Addendum. If a re-interpretation or overread is required please follow defined workflow. Procedure Note Digital Media, Outside - 01/25/2025 This order has been created and auto-finalized to support the import ofoutside images. If available, original interpretation can be found on theMedia Tab in Chart Review, in Document Viewer, as an image in InfinityViewor as an Addendum. If a re-interpretation or overread is required please follow definedworkflow. us Provider Not In System IMG CT PROCEDURES Edited Result - Final IMAGING NA from Last 3 Months Additional Health Concerns Infection Onset Date Last Indicated Protective Environment 01/27/2025 Insurance [facility]
--- OUTSIDE RECORDS SUMMARY | 2025-03-02 17:44 | XMS_ITS | Encounter Summary ---
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 [address] [place] [address] Phone: tel: fax: Referral ID Status Reason Start Date Expiration Date V isits Requested Visits Authorized [id number] Pending Review 1 1 Encounter Details Date Type Department Care Team (Late st Contact Info) Description 01/28/2025 Orders Only Division of Hematology in [place], [place] [address] [place] [phone] Harshad Perez M.D. [address] [place] [address] Multiple Myeloma Not Having Achieved Remission (HCC) [...] Recorded In the past 12 months has Home Team Therapy, gas, oil, or water [employer] threatened to shut off services in your home? No 01/27/2025 Housing Stability Answer Date Recorded What is your living situation today? I have a 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 200 [place] [phone] 03/08/2025 8:45 AM CDT Infusion Department of Oncology in [place], [place] [address] [place] [phone] Constantin López M.D. [address] [place] [phone] 03/08/2025 10:30 AM CDT Comprehensive Visit Department of Vascular Medicine in [place], [place] [address] [place] [phone] Vic Flores M.D. [address] [place] [phone] 03/11/2025 12:30 PM CDT Diagnostic Division of Pulmonary Medicine in [place], [place] [address] [place] [phone] Constantin López M.D. [address] [place] [phone] 03/11/2025 2:00 PM CDT Appointment Department of Vascular Medicine in [place], [place] [address] [place] [phone] Constantin López M.D. [address] [place] [phone] Discharge Disposition: Home or Self Care 03/15/2025 9:00 AM CDT Comprehensive Visit Department of Spine in [place], [place] [address] [place] [phone] Hebert Francis APRN, C.N.P., M.S.N. [address] [place] [phone] 03/15/2025 12:30 PM CDT Appointment Department of Laboratory Medicine and Pathology, [facility], in [place], [place] [address] [place] [phone] Harshad Perez M.D. [address] [place] [phone] 03/15/2025 2:30 PM CDT Office Visit Division of Hematology in [place], [place] [address] [place] [phone] Mely Hayden, ANY, C.N.P., D.N.P., M.S. [address] [place] [phone] 03/15/2025 4:00 PM CDT Infusion Department of Oncology in [place], [place] [address] [place] [phone] Harshad Perez M.D. [address] [place] [phone] 03/16/2025 1:30 PM CDT Comprehensive Visit Division of Pulmonary Medicine in [place], [place] [address] [place] [phone] Morgan Peck M.D. [address] [place] [phone] 03/22/2025 11:10 AM CDT Appointment Department of Laboratory Medicine and Pathology, [facility], in [place], [place] [address] [place] [phone] Harshad Perez M.D. [address] [place] [phone] 03/22/2025 1:00 PM CDT Infusion Department of Oncology in [place], [place] [address] [place] [phone] Harshad Perez M.D. [address] [place] [phone] 03/29/2025 9:15 AM CDT Appointment Division of Pulmonary Medicine in [place], [place] [address] [place] [phone] Harshad Perez M.D. [address] [place] [phone] Discharge Disposition: Home or Self Care 03/29/2025 10:30 AM CDT Appointment Department of Laboratory Medicine and Pathology, [facility] in [place], [place] [address] [place] [address] Harshad Perez M.D. [address] [place] [phone] 03/29/2025 11:15 AM CDT Nurse Only Division of Hematology in [place], [place] [address] [place] [address] Harshad Perez M.D. [address] [place] [phone] 03/29/2025 1:30 PM CDT Infusion Department of Oncology in [place], [place] [address] [place] [address] Harshad Perez M.D. [address] [place] [phone] 04/05/2025 10:10 AM CDT Appointment Department of Laboratory Medicine and Pathology, [facility] in [place], [place] [address] [place] [address] Harshad Perez M.D. [address] [place] [phone] 04/05/2025 12:00 PM CDT Infusion Department of Oncology in [place], [place] [address] [place] [phone] Harshad Perez M.D. [address] [place] [phone] 04/12/2025 11:40 AM CDT Appointment Department of Laboratory Medicine and Pathology, [facility], in [place], [place] [address] [place] [phone] Harshad Perez M.D. [address] [place] [phone] 04/12/2025 1:30 PM CDT Office Visit Division of Hematology in [place], [place] [address] [place] [phone] Tr Hernandez M.D. [address] [place] [phone] 04/12/2025 3:30 PM CDT Infusion Department of Oncology in [place], [place] [address] [place] [phone] Harshad Perez M.D. [address] [place] [phone] 04/19/2025 10:15 AM CDT Infusion Department of Oncology in [place], [place] [address] [place] [phone] Harshad Perez M.D. [address] [place] [phone] 04/26/2025 10:10 AM CDT Appointment Department of Laboratory Medicine and Pathology, [facility], in [place], [place] [address] [place] [phone] Harshad Perez M.D. [address] [place] [phone] 04/26/2025 11:00 AM CDT Nurse Only Division of Hematology in [place], [place] [address] [place] [phone] Harshad Perez M.D. [address] [place] [phone] 04/26/2025 12:00 PM CDT Infusion Department of Oncology in [place], [place] [address] [place] [phone] Harshad Perez M.D. [address] [place] [phone] 04/26/2025 1:30 PM CDT Appointment Division of Pulmonary Medicine in [place], [place] [address] [place] [phone] Harshad Perez M.D. [address] [place] [phone] Discharge Disposition: Home or Self Care 05/03/2025 10:15 AM CDT Infusion Department of Oncology in [place], [place] [address] [place] [phone] Harshad Perez M.D. 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 [address] [place] [phone] 05/10/2025 11:30 AM BENZENE STILL UTILITY OPERATOR Office Visit Division of Hematology in [address] [phone] Mely Hayden, ANY, C.N.P., D.N.P., M.S. [address] [place] [phone] 05/10/2025 1:00 PM BENZENE STILL UTILITY OPERATOR Infusion Department of Oncology in [address] [phone] Constantin López M.D. [address] [place] [phone] 05/17/2025 10:15 AM BENZENE STILL UTILITY OPERATOR Infusion Department of Oncology in [place], [place] [address] [place] [phone] Constantin López M.D. [address] [place] [phone] 05/24/2025 10:00 AM BENZENE STILL UTILITY OPERATOR Appointment Department of Laboratory Medicine and Pathology, [facility] in [place], [place] [address] [place] [phone] Constantin López M.D. [address] [place] [phone] 05/24/2025 10:45 AM BENZENE STILL UTILITY OPERATOR Appointment Division of Pulmonary Medicine in [place], [place] [address] [place] [phone] Harshad Perez M.D. [address] [place] [phone] Discharge Disposition: Home or Self Care 05/24/2025 12:00 PM BENZENE STILL UTILITY OPERATOR Infusion Department of Oncology in [place], [place] [address] [place] [phone] Constantin López M.D. [address] [place] [phone] 05/31/2025 10:00 AM BENZENE STILL UTILITY OPERATOR Infusion Department of Oncology in [place], [place] [address] [place] [phone] Constantin López M.D. [address] [place] [phone] documented as of this encounter Visit Diagnoses Diagnosis Multiple Myeloma Not Having Achieved Remission (HCC)- Primary documented in this encounter Additional Health Concerns Infection Onset Date Last Indicated Resolved Time Protective Environment 01/27/2025 01/27/2025 documented as of this encounter
--- OUTSIDE RECORDS SUMMARY | 2025-03-02 17:44 | XMS_ITS | Encounter Summary ---
Author Organization [facility] Address [address] [place] [address] Care Team Providers Care Advice Nurse Name Role Phone Unavailable Primary Care Provider Unavailabl e Encounter Details Date Type Department Care Team (Late Contact Info) Description 01/28/2025 Clinical Communication Division of Hematology in [place], [place] [address] [place] [address] Harshad Perez M.D. [address] [place] [phone] Social History Tobacco Use Types Packs/Day Years [...] your living situation today? 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 in [place], [place] [address] [place] [address] Constantin López M.D. [address] [place] [phone] 03/08/2025 8:45 AM CDT Infusion Department of Oncology in [place], [place] [address] [place] [address] Constantin López M.D. [address] [place] [phone] 03/08/2025 10:30 AM CDT Comprehensive Visit Department of Vascular Medicine in [place], [place] [address] [place] [address] Vic Flores M.D. [address] [place] [phone] 03/11/2025 12:30 PM CDT Diagnostic Division of Pulmonary Medicine in [place], [place] [address] [place] [phone] Constantin López M.D. [address] [place] [phone] 03/11/2025 2:00 PM CDT Appointment Department of Vascular Medicine in [place], [place] [address] [place] [address] Constantin López M.D. [address] [place] [phone] Discharge Disposition: Home or Self Care 03/15/2025 9:00 AM CDT Comprehensive Visit Department of Spine in [place], [place] [address] [place] [phone] Hebert Francis APRN, C.N.P., M.S.N. [address] [place] [phone] 03/15/2025 12:30 PM CDT Appointment Department of Laboratory Medicine and Pathology, [facility] in [place], [place] [address] [place] [phone] Harshad Perez M.D. [address] [place] [phone] 03/15/2025 2:30 PM CDT Office Visit Division of Hematology in [place], [place] [address] [place] [phone] Mely Hayden APRN, C.N.P., D.N.P., M.S. [address] [place] [phone] 03/15/2025 4:00 PM CDT Infusion Department of Oncology in [place], [place] [address] [place] [phone] Harshad Perez M.D. [address] [place] [phone] 03/16/2025 1:30 PM CDT Comprehensive Visit Division of Pulmonary Medicine in [place], [place] [address] [place] [phone] Morgan Peck M.D. [address] [place] [phone] 03/22/2025 11:10 AM CDT Appointment Department of Laboratory Medicine and Pathology, [facility] in [place], [place] [address] [place] [address] Harshad Perez M.D. [address] [place] [phone] 03/22/2025 1:00 PM CDT Infusion Department of Oncology in [place], [place] [address] [place] [address] Harshad Perez M.D. [address] [place] [phone] 03/29/2025 9:15 AM CDT Appointment Division of Pulmonary Medicine in [place], [place] [address] [place] [phone] Harshad Perez M.D. [address] [place] [phone] Discharge Disposition: Home or Self Care 03/29/2025 10:30 AM CDT Appointment Department of Laboratory Medicine and Pathology, [facility], in [place], [place] [address] [place] [address] Harshad Perez M.D. [address] [place] [phone] 03/29/2025 11:15 AM CDT Nurse Only Division of Hematology in [place], [place] [address] [place] [address] Harshad Perez M.D. [address] [place] [phone] 03/29/2025 1:30 PM CDT Infusion Department of Oncology in [place], [place] [address] [place] [address] Harshad Perez M.D. [address] [place] [phone] 04/05/2025 10:10 AM CDT Appointment Department of Laboratory Medicine and Pathology, [facility] in [place], [place] [address] [place] [address] Harshad Perez M.D. [address] [place] [phone] 04/05/2025 12:00 PM CDT Infusion Department of Oncology in [place], [place] [address] [place] [address] Harshad Perez M.D. [address] [place] [phone] 04/12/2025 11:40 AM CDT Appointment Department of Laboratory Medicine and Pathology, [facility] in [place], [place] [address] [place] [address] Harshad Perez M.D. [address] [place] [phone] 04/12/2025 1:30 PM CDT Office Visit Division of Hematology in [place], [place] [address] [place] [phone] Tr Hernandez M.D. [address] [place] [phone] 04/12/2025 3:30 PM CDT Infusion Department of Oncology in [place], [place] [address] [place] [address] Harshad Perez M.D. [address] [place] [phone] 04/19/2025 10:15 AM CDT Infusion Department of Oncology in [place], [place] [address] [place] [address] Harshad Perez M.D. [address] [place] [phone] 04/26/2025 10:10 AM CDT Appointment Department of Laboratory Medicine and Pathology, [facility] in [place], [place] [address] [place] [address] Harshad Perez M.D. [address] [place] [phone] 04/26/2025 11:00 AM CDT Nurse Only Division of Hematology in [place], [place] [address] [place] [phone] Harshad Perez M.D. [address] [place] [phone] 04/26/2025 12:00 PM CDT Infusion Department of Oncology in [place], [place] [address] [place] [address] Harshad Perez M.D. [address] [place] [phone] 04/26/2025 1:30 PM CDT Appointment Division of Pulmonary Medicine in [place], [place] [address] [place] [address] Harshad Perez M.D. [address] [place] [phone] Discharge Disposition: Home or Self Care 05/03/2025 10:15 AM CDT Infusion Department of Oncology in [place], [place] [address] [place] [phone] Harshad Perez M.D. [address] [place] [phone] 05/10/2025 9:40 AM INSTRUMENT TECHNICIAN APPRENTICE Appointment Department of Laboratory Medicine and Pathology, [place], [place] [address] [place] [phone] Constantin López M.D. [address] [place] [phone] 05/10/2025 11:30 AM INSTRUMENT TECHNICIAN APPRENTICE Office Visit Division of Hematology in [place], [place] [address] [place] [phone] Mely Hayden, ANY, C.N.P., D.N.P., M.S. [address] [place] [phone] 05/10/2025 1:00 PM INSTRUMENT TECHNICIAN APPRENTICE Infusion Department of Oncology in [place], [place] [address] [place] [phone] Constantin López M.D. [address] [place] [phone] 05/17/2025 10:15 AM INSTRUMENT TECHNICIAN APPRENTICE Infusion Department of Oncology in [place], [place] [address] [place] [phone] Constantin López M.D. [address] [place] [phone] 05/24/2025 10:00 AM INSTRUMENT TECHNICIAN APPRENTICE Appointment Department of Laboratory Medicine and Pathology, [facility] in [place], [place] [address] [place] [phone] Constantin López M.D. [address] [place] [phone] 05/24/2025 10:45 AM INSTRUMENT TECHNICIAN APPRENTICE Appointment Division of Pulmonary Medicine in [place], [place] [address] [place] [phone] Harshad Perez M.D. [address] [place] [phone] Discharge Disposition: Home or Self Care 05/24/2025 12:00 PM INSTRUMENT TECHNICIAN APPRENTICE Infusion Department of Oncology in [place], [place] [address] [place] [phone] Constantin López M.D. [address] [place] [phone] 05/31/2025 10:00 AM INSTRUMENT TECHNICIAN APPRENTICE Infusion Department of Oncology in [place], [place] [address] [place] [phone] Constantin López M.D. [address] [place] [phone] documented as of this encounter Visit Diagnoses Not on filedocumented in this encounter Additional Health Concerns Infection Onset Date Last Indicated Resolved Time Protective Environment 01/27/2025 01/27/2025 documented as of this encounter
--- OUTSIDE RECORDS SUMMARY | 2025-03-02 17:45 | XMS_ITS | Clinical Summary ---
Author Organization [facility] Address [address] [place] [id number] Care Team Providers Care Senior Business Intelligence Analyst Name Role Phone Randy Mc MD [facility] Provider [facility] Un[facility] Allergies No known active allergies Medications mupirocin 2% ointmentIndicat ions:Nasal crusting,Epista xis Put the bactroban twice daily in the nostrils. Do not use qtips to apply. Use a pea sized amount, place in the nasal passages and pinch the lower soft part of your nose to spread it on the inside. This will melt in 10 mins and coat your nose. 30 g 5 Active methylPREDNISol one 4 mg tabletIndicatio ns:Pain and swelling of left lower leg,Left sided sciatica,Foot pain, left Take by mouth as instructed per packaging: take all tablets together with breakfast. 21 Tablet 5 Active tiZANidine 4 mg tabletIndicatio ns:Pain and swelling of left lower leg,Left sided sciatica,Foot pain, left Take 1 Tablet (4 mg) by mouth every 6 hours if needed for Muscle Spasm. 10 Tablet 5 Active Active Problems Problem Noted Date Diagnosed Date Dyslipidemia 05/06/2024 Tear of medial meniscus of left knee, current Multiple myeloma Overview (02/08/2025): 01/2025 Prediabetes Resolved Problems Problem Noted Date Diagnosed Date Resolved Date Tendinitis of right knee 05/26/2018 Chronic pain of right knee 05/26/2018 1 Left knee pain 05/08/2015 05/06/2024 Encounters Date Type Department Care Team Description 01/31/2025 Telephone [facility] [address] [place] [address] [place], [facility] Cancer Appointment 01/27/2025 Telephone [facility] [address] [place] [address] [place], [facility] Cancer Appointment 01/26/2025 Telephone [facility] [address] [place] [address] Karla Ashton PA 01/25/2025 3:15 PM CDT - 01/25/2025 11:59 PM CDT Hospital Encounter [facility] [address] [place] [address] GIRISH (acute kidney injury); Abnormal positron emission tomography (PET) scan 01/25/2025 Travel 01/24/2025 Telephone [facility] [address] [place] [address] Randy Mc MD Lab 01/21/2025 Telephone [facility] [address] [place] [address] Randy Mc MD Procedure 01/21/2025 Telephone [facility] [address] [place] [address] Randy Mc MD 01/21/2025 Orders Only [facility] [address] [place] [address] Randy Mc MD <No scans attached> 01/20/2025 9:18 AM CDT - 01/20/2025 11:59 PM CDT Hospital Encounter [facility] [address] [place] [address] Randy Mc MD Lytic bone lesions on xray; Abnormal CT scan 01/20/2025 Telephone [facility] [address] [place] [address] Randy Mc MD Prior Authorization (PET SCAN denied- Will be a claims appeal) 01/20/2025 Travel 01/17/2025 9:30 AM CDT Ancillary Procedure [facility] [address] [place] [address] 01/17/2025 Telephone [facility] [address] [place] [address] [place], [facility] Cancer Referral (/Lytic bone lesions on xray [M89.8X9]/Abnormal CT scan [R93.89]//) 01/17/2025 Telephone [facility] [address] [facility] [address] Randy Mc MD Results 01/17/2025 Orders Only [facility] [address] [facility] [place] [address] Randy Mc MD <No scans attached> 01/17/2025 Travel 01/14/2025 2:45 PM CDT Orders Only [facility] [address] [facility] [place] [address] Lab, [place] [facility] 01/13/2025 Travel 01/13/2025 Telephone [facility] [address] [place] [address] Joseph Guidry MD Need Meds (prep) 01/12/2025 Telephone [facility] [address] [facility] [place] [address] Randy Mc MD Follow Up 01/12/2025 Telephone [facility] [address] [facility] [place] [address] Randy Mc MD Results 01/12/2025 Travel 01/12/2025 Orders Only [facility] [address] [facility] [place] [address] Randy Mc MD <No scans attached> 01/11/2025 1:40 PM CDT Office Visit [facility] [address] [place] [address] Randy Mc MD Follow Up (Patient states follow up from [facility] for left leg pain patient states pain has not improved. Patient states with elevation swelling has decreased.) 01/10/2025 Travel 01/04/2025 11:15 AM CDT Ancillary Procedure [facility] [address] [place] [address] 01/04/2025 10:20 AM CDT Office Visit [facility] [address] [place] [address] Leigh Verma PA Foot Problem 01/04/2025 Travel 01/03/2025 9:00 AM CDT Office Visit [facility] [address] [facility] [address] [place] [address] Erna Arauz PA Consult (Nasal septal ulcer x6 months) 01/03/2025 Telephone [facility] [address] [place] [address] Karina Marin MD Referral (PT) 01/03/2025 Travel 12/29/2024 Travel 12/27/2024 4:00 PM CDT Ancillary Procedure [facility] [address] [place] [address] 12/27/2024 3:05 PM CDT Office Visit [facility] [address] [place] [address] Karina Marin MD Follow Up (All symptoms have improved ); Musculoskeletal Problem (left back pain /left foot pain /left elbow ); Cough (Chest cold for 3 months. ); Nose Problem (Will blow blood clots out of left nostril ); Lab (recheck iron ) 12/27/2024 Travel 12/23/2024 Travel 12/02/2024 Orders Only [facility] [address] [place] [address] Randy Mc MD <No scans attached> 12/01/2024 Orders Only [facility] [address] [place] [address] Randy Mc MD <No scans attached> 11/30/2024 3:45 PM CDT Office Visit [facility] [address] [place] [address] Randy Mc MD Leg Pain/problem (Tightness in bilateral leg, bilateral foot swelling); Fatigue; Urinary Problem (Change in urine, odor) from Last 3 Months Immunizations Immunization Administration Dates Next Due HepA-HepB (Twinrix) 04/29/2011,01/10/2009 Hepatitis B (Adult) 01/25/2014 Influenza, IIV3 (Age >=3 years) 04/29/2011 Influenza, IIV4 04/14/2019,04/13/2018 Td (Age >=7 Years) 04/14/2019,02/25/1994 Tdap 01/10/2009 Tuberculin (PPD) 01/10/2009 Zoster (Shingrix-RZV, recombinant) 06/04/2023, Family History Medical History Relation Name Comments Asthma Brother 1 Testicular cancer Brother 2 Cancer Father mult myeloma Cancer-prostate Father age 72 Cancer-ovarian Mother 94 Hyperlipidemia Mother Diabetes No Family History Relation Name Status Comments Brother 1 Brother 2 Alive Father Alive Mother Alive Social History Tobacco Use Types Packs/Day Years Used Date Smoking Tobacco: Former Cigarettes Q uit: 01/11/2011 Passive Smoke Exposure: Never Smokeless Tobacco: Never Tobacco Cessation:Counseling Given: Not Answered Alcohol Use Standard Drinks/Week Comments Yes 0 (1 standard drink = 0.6 oz pur e alcohol) 4-5 per year PHQ-2 Answer Date Recorded PHQ-2 TOTAL SCORE 0 05/06/2024 Social Connections Answer Date Recorded Do you often feel lonely or isolated from those around you? 0 05/04/2024 Financial Resource Strain Answer Date R ecorded Difficulty of Paying Living Expenses 3 05/04/2024 Difficulty of Paying Living Expenses Not on file 05/04/2024 Food Insecurity Answer Date Recorded Do you worry your food will run out before you are able to buy more? 1 05/04/2024 Transportation Needs Answer Date Record ed Does lack of transportation keep you from medica l appointments? 1 05/04/2024 Does lack of transportation keep you from work, meetings or getting things that you need? 1 05/04/2024 Housing Stability Answer Date Recorded What is your housing situation today? 1 05/04/2024 Utilities Answer Date Recorded Do you have trouble paying f or utilities (for example, heat, electricity, water, phone)? 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 Not on file Not on file Not on file Obstetrics History Last Filed Vital Signs Vital Sign Reading Time Taken Comments Blood Pressure 111/77 01/11/2025 1:39 PM CDT Pulse 84 01/11/2025 1:39 PM CDT Temperature 35.8 C (96.5 F) 05/06/2024 3:42 PM CDT Respiratory Rate 20 10/21/2022 9:20 AM CDT Oxygen Saturation 97% 01/11/2025 1:39 PM CDT Inhaled Oxygen Concentration - - Weight 76.4 kg (168 lb 6.4 oz) 01/11/2025 1:39 P M CDT Height 173.5 cm (5' 8.31) 05/06/2024 3:42 PM CD T Body Mass Index 25.38 05/06/2024 3:42 PM CDT Plan of Treatment Upcoming Encounters Date Type Department Care Team (Late st Contact Info) Description 03/11/2025 9:00 AM CDT Office Visit [facility] [address] [facility] [address] [address] [address] [place] [address] Erna Arauz PA [address] [facility] [address] [address] [address] [place], [place] [id number] Health Maintenance Due Date Last Done Comments Pneumococcal series for age 50+ (1 of 2 - PCV) 1982 COVID-19 vaccine series (3 - Pfizer risk series) 03/15/2021 02/15/2021, 01/25/2021 RSV vaccine for adults or (1 - Risk 60-74 years 1-dose series) 2023 Influenza Vaccine (#1) 2025 9, 04/13/2018, 04/29/2011 BMI (ht and wt on same day) for age 18+ 05/06/2025 05/06/2024, 10/21/2022, 09/25/2021, Additional history exists Depression screening for age 12+ 05/06/2025 05/06/2024, 10/23/2020, 10/16/2020, Additional history exists Colonoscopy through age 75 04/08/2028 04/08/2018 Tetanus booster 04/14/2029 04/14/2019, 01/2009, 02/25/1994 Lipids for age 45-75 05/06/2029 05/06/2024, 06/04/2023, 04/14/2019, Additional history exists Hepatitis B series for 19+ Completed 01/25, 04/29/2011, 01/10/2009 HIV for age 15-65 Completed 06/04/2023 Hepatitis C screening for ag e 18-79 Completed 06/04/2023 Zoster (shingles) series for age 50+ Completed 06/04/2023, 04/14/2019 Procedures Procedure Name Priority Date/Time Associated Diagnosis Comments CBC WITH AUTO DIFFERENTIAL Timed 01/25/2025 3:18 PM CDT Abnormal positron emission tomography (PET) scan RETICULOCYTES Today 01/25/2025 3:18 PM CDT Abnormal positron emission tomography (PET) scan CBC WITH AUTO DIFFERENTIAL Today 01/25/2025 3:18 PM CDT Abnormal positron emission tomography (PET) scan BASIC METABOLIC PANEL Today 01/25/2025 3:18 PM CDT GIRISH (acute kidney injury) PET CT SKULL BASE TO MID THIGH SUBSEQUENT TREAT JUWAN 01/20/2025 11:15 AM CDT Lytic bone lesions on xray Abnormal CT scan CT CHEST ABDOMEN PELVIS W Routine 01/17/2025 10:09 AM CDT Weight loss TISSUE TRANSGLUTAMINE IGG Routine 01/14/2025 3:01 PM CDT CELIAC CASCADE PANEL Routine 01/14/2025 3:01 PM CDT Iron deficiency anemia, unspecified iron deficiency anemia type IMMUNOFIXATION ELP, URINE Routine 01/14/2025 2:50 PM CDT Hypergammaglobulinemi a IMMUNOFIXATION,SERUM Routine 01/14/2025 2:50 PM CDT Hypergammaglobulinemi a PROTEIN ELP,URINE RANDOM Routine 01/14/2025 2:50 PM CDT Hypergammaglobulinemi a PROTEIN ELP SERUM W REFLEX Routine 01/14/2025 2:50 PM CDT Hypergammaglobulinemi a TISSUE TRANSGLUTAMINE IGG Routine 01/11/2025 2:26 PM CDT CELIAC CASCADE PANEL Add On 01/11/2025 2:26 PM CDT Weight loss Iron deficiency anemia, unspecified iron deficiency anemia type FERRITIN Routine 01/11/2025 2:26 PM CDT Iron deficiency anemia, unspecified iron deficiency anemia type IRON PLUS IRON BINDING CAP Routine 01/11/2025 2:26 PM CDT Iron deficiency anemia, unspecified iron deficiency anemia type URIC ACID Routine 01/11/2025 2:26 PM CDT Arthralgia, unspecified joint CBC WITH AUTO DIFFERENTIAL Routine 01/11/2025 2:26 PM CDT Iron deficiency anemia, unspecified iron deficiency anemia type C-REACTIVE PROTEIN Routine 01/11/2025 2: 26 PM CDT Arthralgia, unspecified joint BASIC METABOLIC PANEL Routine 01/11/2025 2:26 PM CDT Weight loss HEPATIC FUNCTION PANEL Routine 2:26 PM CDT Weight loss ANCA PANEL FOR VASCULITIS Routine 01/11/2025 2:26 PM CDT Arthralgia, unspecified joint US VENOUS LOWER EXTREMITY LEFT STAT 01/04/2025 11:53 AM CDT Pain and swelling of left lower leg XR SPINE LUMBAR 3 VIEWS Routine 12/27/2024 3:49 PM CDT Acute left lumbar radiculopathy URINALYSIS MACROSCOPIC - [facility] ONLY POC DIP ([facility]) Routine 11/30/2024 4:31 PM CDT Malodorous urine URINALYSIS MICROSCOPIC Routine 4:30 PM CDT Malodorous urine PROTEIN/CREAT RATIO,URINE Routine 11/30/2024 4:30 PM CDT Proteinuria, unspecified type FERRITIN Add On 11/30/2024 4:17 PM CDT Anemia of unknown etiology IRON PLUS IRON BINDING CAP Add On 11/30/2024 4:17 PM CDT Anemia of unknown etiology HEMOGLOBIN A1C Routine 11/30/2024 4:17 PM CDT Prediabetes CBC WITH AUTO DIFFERENTIAL Routine 11/30/2024 4:17 PM CDT Fatigue, unspecified type BASIC METABOLIC PANEL Routine 11/30/2024 4:17 PM CDT Prediabetes HEPATIC FUNCTION PANEL Routine 4:17 PM CDT Prediabetes TSH WITH REFLEX Routine 11/30/2024 4:17 PM CDT Fatigue, unspecified type LIPID PANEL W REFLEX MEASURED LDL Routine 05/06/2024 4:14 PM CDT Hyperlipidemia, unspecified hyperlipidemia type ANTI HIV 1/2 Routine 06/04/2023 9:46 AM 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 Encounter for screening for HIV ANTI HCV Routine 06/04/2023 9:46 AM 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 Need for hepatitis C screening test COLONOSCOPY SCREENING Routine 04/08/2018 1:42 PM CDT Screening procedure from Last 3 Months or Most Recently Relevant to Health Maintenance Results * (ABNORMAL) CBC WITH AUTO DIFFERENTIAL (01/25/2025 3:18 PM CDT) WHITE BLOOD COUNT 6.6 4.5 - 11.0 thou/cu mm 01/27/2025 1:13 PM T [facility] Comment:Canceled- Per Provid er RED BLOOD COUNT 3.37(L) 4.30 - 5.90 mil/cu mm 01/27/2025 1:13 PM [facility] Comment:Canceled- Per Provid er HEMOGLOBIN 10.2(L) 13.5 - 17.5 g/dL 01/27/2025 1:13 PM [facility] Comment:Canceled- Per Provid er HEMATOCRIT 32.5(L) 37.0 - 53.0 % 01/27/2025 1:13 PM [facility] Comment:Canceled- Per Provid er MCV 96 80 - 100 fL 01/27/2025 1:13 PM [facility] Comment:Canceled- Per Provid er MCH 30.3 26.0 - 34.0 pg 01/27/2025 1:13 PM [facility] Comment:Canceled- Per Provid er MCHC 31.4(L) 32.0 - 36.0 g/dL 01/27/2025 1:13 PM [facility] Comment:Canceled- Per Provid er RDW 15.2 11.5 - 15.5 % 01/27/2025 1:13 PM [facility] Comment:Canceled- Per Provid er PLATELET COUNT 257 140 - 440 thou/cu mm 01/27/2025 1:13 PM T [facility] Comment:Canceled- Per Provid er MPV 8.5 6.5 - 11.0 fL 01/27/2025 1:13 PM [facility] Comment:Canceled- Per Provid er % NEUT 36.7 % 01/27/2025 1:13 PM [facility] Comment:Canceled- Per Provid er % LYMPH 54.9 % 01/27/2025 1:13 PM [facility] Comment:Canceled- Per Provid er % MONO 7.6 % 01/27/2025 1:13 PM [facility] Comment:Canceled- Per Provid er % EOS 0.5 % 01/27/2025 1:13 PM [facility] Comment:Canceled- Per Provid er % BASO 0.3 % 01/27/2025 1:13 PM [facility] Comment:Canceled- Per Provid er ABSOLUTE NEUTROPHILS 2.4 1.7 - 7.0 thou/cu mm 01/27/2025 1:13 PM [facility] Comment:Canceled- Per Provid er ABSOLUTE LYMPHOCYTES 3.6(H) 0.9 - 2.9 thou/cu mm 01/27/2025 1:13 PM [facility] Comment:Canceled- Per Provid er ABSOLUTE MONOCYTES 0.5 <0.9 thou/cu mm 01/27/2025 1:13 PM [facility] Comment:Canceled- Per Provid er ABSOLUTE EOSINOPHILS 0.0 <0.5 thou/cu mm 01/27/2025 1:13 PM [facility] Comment:Canceled- Per Provid er ABSOLUTE BASOPHILS 0.0 <0.3 thou/cu mm 01/27/2025 1:13 PM [facility] Comment:Canceled- Per Provid er Blood BLOOD SPECIMEN / Unknown Venipuncture / Unknown 01/25/2025 3:18 PM CDT 01/25/2025 3:22 PM CDT Narrative [facility] - 01/27/2025 1:13 PM CDT Canceled- Per Provider Labs were meant to be collected with bone marrow biopsy Randy Mc MD HEMATOLOGY Edited Result - Final [facility] [address] [place] [address] * (ABNORMAL) RETICULOCYTES (01/25/2025 3:18 PM CDT) Pathologist [facility] RETIC% 1.8(H) 0.5 - 1.5 % 01/27/2025 1:14 PM CDT [facility] RETIC (ABSOLUTE) 0.06 0.03 - 0.08 mil/cu mm 01/27/2025 1:14 PM CDT [facility] Blood BLOOD SPECIMEN / Unknown Venipuncture / Unknown 01/25/2025 3:18 PM CDT 01/25/2025 3:22 PM CDT Narrative [facility] - 01/27/2025 1:14 PM CDT Canceled- Per Provider Randy Mc MD HEMATOLOGY Edited Result - Final [facility] [address] [place] [address], [place] * (ABNORMAL) BASIC METABOLIC PANEL (01/25/2025 3:18 PM CDT) Only the most recent of3 resultswithin the time period is included. SODIUM 132(L) 136 - 145 mmol/L 01/25/2025 5:36 PM CDT [facility] POTASSIUM 4.1 3.5 - 5.1 mmol/L 01/25/2025 5:36 PM CDT [facility] CHLORIDE 100 98 - 107 mmol/L 01/25/2025 5:36 PM CDT [facility] CO2,TOTAL 01/25/2025 5:36 PM CDT [facility] Comment: Canceled- Invalid Result(s) Outside linearity of instrument. ANION GAP Unable to calculate. 01/25/2025 5:36 PM CDT [facility] GLUCOSE 83 70 - 99 mg/dL 01/25/2025 5:36 PM CDT [facility] CALCIUM 8.7(L) 8.8 - 10.4 mg/dL 01/25/2025 5:36 PM CDT [facility] Comment: Reference ranges for this test were updated on 05/11/2024 to reflect our healthy population more accurately. Reference range changes are not retroactively applied to results, but previous results using the same methodology can be interpreted in the context of the new reference range. BUN 16 8 - 23 mg/dL 01/25/2025 5:36 PM T [facility] CREATININE 1.23(H) 0.70 - 1.20 mg/dL 01/25/2025 5:36 PM T [facility] BUN/CREAT RATIO 13 10 - 20 5:36 PM [facility] eGFR 66(L) >90 mL/min/1. 73m2 01/25/2025 5:36 PM T [facility] Comment:As of 2021, eG FR is calculated by the CKD-EPI creatinine equation without race adjustment. eGFR can be influenced by muscle mass, exercise, and diet. The reported eGFR is an estimation only and is only applicable if the renal function is stable. Blood BLOOD SPECIMEN / Unknown Venipuncture / Unknown 01/25/2025 3:18 PM CDT 01/25/2025 3:22 PM CDT us Randy Mc MD CHEMISTRY Final Result [facility] [address] [place] [address] * PET CT SKULL BASE TO MID THIGH SUBSEQUENT TREAT (01/20/2025 11:15 AM CDT) Anatomical Region Laterality Modality Positron Emissio n Tomography (PET) 01/20/2025 8:12 PM CDT Impressions 01/20/2025 8:12 PM CDT 1. Diffuse intense FDG uptake in the [...] MD @ 01/20/2025 8:12:06 PM (Electronically Signed) Narrative 01/20/2025 8:12 PM CDT For Patients: As a result of the Cures Act, medical imaging exams and procedure [...] cysts. Multilevel degenerative changes in the spine. Procedure Note Alban Benitez MD - 01/20/2025 For Patients: As a result of the Cures Act, medical imagingexams and procedure reports are released immediately into your electronicmedical record. You may view this report before your referring provider.If you have questions, please contact your health care provider. EXAM: FDG PET-CT Skull Base to Thighs CLINICAL INFORMATION: 60-year-old man with history of lytic osseous lesions. PET CT ordered foradditional characterization. TECHNIQUE: Radiopharmaceutical: 18F-fluorodeoxyglucose (18F-FDG) Dose: 40.0 milliCurie. Blood glucose: 92 mg/dL. Image acquisition: At approximately 60 minutes following IV traceradministration via a right antecubital vein, positron emission tomographywas performed from the skull base through the mid thigh. Tkt-[id number] helical CT imaging was performed over the same range withoutbreath-hold for attenuation correction of PET images and anatomiccorrelation; it is neither sufficient, nor should it be substituted fordiagnostic purposes. COMPARISON: CT chest abdomen pelvis 01/17/2025. FINDINGS: Mediastinal blood pool FDG uptake: SUVMax 2.1 (Image 83) Liver background parenchymal FDG uptake: SUVMax 3.2 (image 123) PET Findings: No abnormal FDG avid lymphadenopathy. Diffuse intense FDG uptake in the axial and appendicular skeleton, forexample with SUVMax 15.2 in the right posterior iliac bone (image 211),with innumerable tiny lytic osseous lesions and several larger lyticlesions. As another example, a 2.0 x 1.6 cm lytic lesion in the leftsuperior pubic ramus demonstrates SUVMax 15.4 (image 236). An additionalexample, FDG uptake at lytic lesion in the L3 vertebral body withpathologic compression fracture in L3 demonstrates SUV max 15.4. Diffusely increased splenic uptake. Tracer uptake elsewhere is physiologic. Non-PET findings: Upper lung predominant emphysema. Coronary artery calcifications.Atherosclerotic calcifications of the thoracic and abdominal aorta. 4.1 x4.1 cm ascending thoracic aortic aneurysm. Prostatomegaly. Subcentimeterhypodensities in the liver, too small to characterize but statisticallylikely cysts. Multilevel degenerative changes in the spine. IMPRESSION: 1. Diffuse intense FDG uptake in the axial and appendicular skeleton, withinnumerable tiny lytic osseous lesions and several larger lytic osseouslesions including a L3 vertebral body lesion with pathologic fracture,raises concern for a metabolically active intramedullary neoplasm, likelya lymphoproliferative process such as multiple myeloma. Correlate withbone marrow tissue sampling. 2. Diffusely increased splenic FDG uptake likely represents activation ofthe reticuloendothelial system, with nonspecific etiology that includes anadditional site of lymphoproliferative neoplasm, versus a response tosystemic inflammatory process Dictated by Alban Benitez MD @ 01/20/2025 8:12:06 PM (Electronically Signed) Randy Mc MD PET Final Result * CT CHEST ABDOMEN PELVIS W (01/17/2025 10:09 AM CDT) Anatomical Region Laterality Modality Abdomen, Pelvis, AORTA, LIVER, SPLEEN, CHEST Computed Tomography 01/17/2025 12:0 6 PM CDT Narrative 01/17/2025 12:06 PM CDT For Patients: As a result of the [...] MD @ 01/17/2025 12:06:55 PM (Electronically Signed) Procedure Note Joey Lopez MD - 01/17/2025 For Patients: As a result of the Cures Act, medical imagingexams and procedure reports are released immediately into your electronicmedical record. You may view this report before your referring provider.If you have questions, please contact your health care provider. Indication: weight loss former smoker Technique: CT CHEST/ABD/PELVIS W Omnipaque 350 100 ML intravenous contrast Please note that all CT scans at this facility use dose modulation,iterative reconstruction, and/or weight-based dosing when appropriate toreduce radiation dose to as low as reasonably achievable. Comparison: 08/03/2012 Findings: In the chest, innumerable lucencies throughout the osseous structuresnoted measure up to 1.5 cm. No pathologic fracture. No mediastinal, hilaror axillary adenopathy. No pleural or pericardial effusion. No infiltrateor edema. No fibrosis. No suspicious pulmonary nodule. In the abdomen, low-density structures in the liver are present whichmeasure up to 1.4 cm appear to represent cysts. Gallbladder normal. Spleenunremarkable. Incidental spleen. Normal adrenal glands. Pancreas normal.Kidneys are normal. Normal patency of the portal vein. No retroperitonealor mesenteric adenopathy. In the pelvis, no pelvic or inguinal adenopathy. The bladder is normal.Normal ureters. A few prostate calcifications are present. No bowelobstruction, free air, free fluid or abscess. Normal appendix. Innumerableosseous lucencies are present throughout the lumbar spine and pelvis,including a large lucency involving nearly the entirety of the N6apedlatde body with associated central compression. Impression: Diffusely abnormal osseous structures with innumerable lytic lesionspresent, new from CT 2013. Pathologic fracture and centrally involving thesuperior endplate of L3. No adenopathy in the chest, abdomen or pelvis. Intrahepatic cysts are present measuring up to 1.4 cm. Further evaluation with CT PET is recommended as the source of metastaticdisease is not identified. Also, a liver MRI should be considered toconfirm intrahepatic cysts. Please note that all CT scans at this facility use dose modulation,iterative reconstruction, and/or weight-based dosing when appropriate toreduce radiation dose to as low as reasonably achievable. Dictated by Joey Lopez MD @ 01/17/2025 12:06:55 PM (Electronically Signed) Randy Mc MD CT Final Result * (ABNORMAL) CELIAC CASCADE PANEL (01/14/2025 3:01 PM CDT) Only the most recent of2 resultswithin the time period is included. CELIAC DISEASE COMPREHENSIVE PANEL INTERPRETATION [employer] [facility] [place] Comment: No serological evidence for celiac disease is present. Consider IgA deficiency. TISSUE TRANSGLUTAMINASE AB, IGA <1.0 U/mL [employer] [facility] [place] Comment: Value Interpretation ----- <15.0 Antibody not detected > or = 15.0 Antibody detected IMMUNOGLOBULIN A 27(L) 70 - 320 mg/dL [employer] [facility] [place] Blood BLOOD SPECIMEN / Unknown 01/14/2025 3:01 PM CDT 01/14/2025 3:01 PM CDT us Randy Mc MD SEND OUTS Final Result Performing Organization Address [facility] Co de Phone Number [employer] [facility] [address] [place] [address], [place] [phone] [facility] [place] [address] [place] [phone] * TISSUE TRANSGLUTAMINE IGG (01/14/2025 3:01 PM CDT) Only the most recent of2 resultswithin the time period is included. TISSUE TRANSGLUTAMINASE AB, IGG 1.0 U/mL [facility] christ[facility]ray [place] Comment: Value Interpretation ----- <15.0 Antibody not detected > or = 15.0 Antibody detected 01/14/2025 3:01 PM CDT 01/14/2025 3:01 PM CDT us Randy Mc MD SEND OUTS Final Result Performing Organization Address [facility] Co de Phone Number [employer] [address] [address], [facility] [place] [address] [place] [phone] * (ABNORMAL) PROTEIN ELP SERUM W REFLEX (01/14/2025 2:50 PM CDT) ELP,ALBUMIN 3.35 3.31 - 5.31 g/dL 01/17/2025 4:07 PM CDT [facility] ELP,ALPHA 1 0.37 0.19 - 0.42 g/dL 01/17/2025 4:07 PM CDT [facility] ELP,ALPHA 2 0.93 0.44 - 1.03 g/dL 01/17/2025 4:07 PM CDT [facility] ELP,GAMMA 2.01(H) 0.59 - 1.46 g/dL 01/17/2025 4:07 PM CDT [facility] ELP,BETA 0.74 0.52 - 1.05 g/dL 01/17/2025 4:07 PM CDT [facility] MONOCLONAL PEAK 1 1.95 <=0.00 g/dL 01/17/2025 4:07 PM CDT [facility] ELP INTERP,SERUM Monoclonal protein detected in gamma region, confirmed by immunofixation. Interpreted and electronically signed by: Renae Perry MD 01/17/2025 4:07 PM CDT [facility] PROTEIN,TOTAL 7.4 6.0 - 8.0 g/dL 01/17/2025 4:07 PM CDT [facility] Blood BLOOD SPECIMEN / Unknown [facility] / Unknown 01/14/2025 2:50 PM CDT 01/14/2025 2:50 PM CDT us Randy Mc MD CHEMISTRY Final Result [facility] 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 Interpreted and electronically signed by: Lukas Sethi MD 01/19/2025 4:07 PM CDT [facility] PROTEIN QUANT,RAND URINE 12 1 - 14 mg/dL 01/19/2025 4:07 PM CDT [facility] Urine URINE SPECIMEN / Unknown Non-Blood / Unknown 01/14/2025 2:50 PM CDT 01/14/2025 2:50 PM CDT us Randy Mc MD URINE Final Result Performing Organization Address City/State/[facility] Co de Phone Number [facility] [address] [address], [place] * (ABNORMAL) IMMUNOFIXATION,SERUM (01/14/2025 2:50 PM CDT) IGG 2,173.86(H) 610.30 - 1,616.00 mg/dL 01/17/2025 4:07 PM CDT [facility] IGA 33.80(L) 84.50 - 499.00 mg/dL 01/17/2025 4:07 PM CDT [facility] IGM 10.21(L) 35.00 - 242.00 mg/dL 01/17/2025 4:07 PM CDT [facility] IFIX INTERP,SERUM Immunotyping on serum shows IgG [place] specificity monoclonal protein. The finding of a monoclonal protein may be associated with a lymphoproliferative or plasma cell disorder. Consider serum free light chains, urine protein electrophoresis and urine immunofixation to further evaluate, if not already performed. Interpreted and electronically signed by: Renae Perry MD 01/17/2025 4:07 PM CDT [facility] Blood BLOOD SPECIMEN / Unknown [facility] / Unknown 01/14/2025 2:50 PM CDT 01/14/2025 2:50 PM CDT Randy Mc MD CHEMISTRY Final Result Performing Organization Address City/[facility]/ZIP Co de Phone Number [facility] [address] [address], [place] * (ABNORMAL) PROTEIN ELP,URINE RANDOM (01/14/2025 2:50 PM CDT) URINE,MONOCLO NAL #1(%) 7.7 <=0.0 % 01/19/2025 4:11 PM CDT [facility] URINE,MONOCLO NAL #1 0.92 <=0.00 mg/dL 01/19/2025 4:11 PM CDT [facility] URINE,MONOCLO NAL #2(%) 1.6 <=0.0 % 01/19/2025 4:11 PM CDT [facility] URINE,MONOCLO NAL #2 0.19 <=0.00 mg/dL 01/19/2025 4:11 PM CDT [facility] ELP INTERP, URINE Monoclonal protein detected in beta-gamma region, confirmed by immunofixation. Interpreted and electronically signed by: Lukas Sethi MD 01/19/2025 4:11 PM CDT [facility] PROTEIN QUANT,RAND URINE 12 1 - 14 mg/dL 01/19/2025 4:11 PM CDT [facility] Urine URINE SPECIMEN / Unknown Non-Blood / Unknown 01/14/2025 2:50 PM CDT 01/14/2025 2:50 PM CDT us Randy Mc MD URINE Final Result [facility] [address] [place] [address], * ANCA PANEL FOR VASCULITIS (01/11/2025 2:26 PM CDT) ANCA SCREEN NEGATIVE NEGATIVE [facility] Comment: ANCA screen uses indirect immunofluorescence to detect antibodies to neutrophil cytoplasmic antigens. A positive screen reflexes to titer and pattern. Patterns include cytoplasmic (c-ANCA) and perinuclear (p-ANCA) both of which are associated with vasculitis, and atypical p-ANCA which is associated with inflammatory bowel disease and other disorders. Blood BLOOD SPECIMEN / Unknown 01/11/2025 2:26 PM CDT 01/11/2025 2:27 PM CDT us Randy Mc MD SEND OUTS Final Result [employer] [facility] [address] [place] [address], [place] [phone] [facility] [place] [address] [place] [address] * (ABNORMAL) IRON PLUS IRON BINDING CAP (01/11/2025 2:26 PM CDT) Only the most recent of2 resultswithin the time period is included. [facility] IRON, TOTAL 40(L) 50 - 180 mcg/dL [facility] [place] IRON BINDING CAPACITY 308 250 - 425 mcg/dL (calc) [facility] [place] % SATURATION 13(L) 20 - 48 % (calc) [facility] [employer] [facility]- ray [place] Blood BLOOD SPECIMEN / Unknown 01/11/2025 2:26 PM CDT 01/11/2025 2:27 PM CDT Randy Mc MD CHEMISTRY Final Result Performing Organization Address [facility]/ZIP Co de Phone Number [employer] [address] [address], [place] [phone] [facility] [place] [address] [place] [address] * (ABNORMAL) C-REACTIVE PROTEIN (01/11/2025 2:26 PM CDT) [facility] C-REACTIVE PROTEIN (MG/L) 53.5(H) <8.0 mg/L [facility] Cool[facility] CoolerAlireza [place] Blood BLOOD SPECIMEN / Unknown 01/11/2025 2:26 PM CDT 01/11/2025 2:27 PM CDT Randy Mc MD CHEMISTRY Final Result Performing Organization Address [facility]/ZIP Co de Phone Number [employer] [address] [address], [place] [phone] [facility] [place] [address] [place] [address] * (ABNORMAL) CBC AND DIFFERENTIAL (01/11/2025 2:26 PM CDT) Only the most recent of2 resultswithin the time period is included. [facility] WHITE BLOOD CELL COUNT 6.1 3.8 - 10.8 Thousand/u L [facility] [place] RED BLOOD CELL COUNT 4.00(L) 4.20 - 5.80 Million/uL [facility] [place] HEMOGLOBIN 11.8(L) 13.2 - 17.1 g/dL [facility] [place] HEMATOCRIT 37.2(L) 38.5 - 50.0 % [facility] MCV 93.0 80.0 - 100.0 fL [facility] MCH 29.5 27.0 - 33.0 pg [facility] MCHC 31.7(L) 32.0 - 36.0 g/dL [facility] [place] Comment: For adults, a slight decrease in the calculated MCHC value (in the range of 30 to 32 g/dL) is most likely not clinically significant; however, it should be interpreted with caution in correlation with other red cell parameters and the patient's clinical condition. RDW 15.4(H) 11.0 - 15.0 % [facility] PLATELET COUNT 364 140 - 400 Thousand/u L [facility] MPV 11.8 7.5 - 12.5 fL [facility] [place] ABSOLUTE NEUTROPHILS 2,971 1,500 - 7,800 cells/uL [facility] [place] ABSOLUTE LYMPHOCYTES 2,611 850 - 3,900 cells/uL [facility] [place] ABSOLUTE MONOCYTES 470 200 - 950 cells/uL [facility] [place] ABSOLUTE EOSINOPHILS 18 15 - 500 cells/uL [facility] [place] ABSOLUTE BASOPHILS 31 0 - 200 cells/uL [facility] [place] NEUTROPHILS 48.7 % [facility] LYMPHOCYTES 42.8 % [facility] MONOCYTES 7.7 % [facility] [place] EOSINOPHILS 0.3 % [facility] BASOPHILS 0.5 % [facility] [place] CBC (INCLUDES DIFF/PLT) COMMENTS [facility] [place] Comment: Hypochromasia 1 + Anisocytosis 1 + Schistocytes 2 + Blood BLOOD SPECIMEN / Unknown 01/11/2025 2:26 PM CDT 01/11/2025 2:27 PM CDT Randy Mc MD HEMATOLOGY Final Result [facility] [address] [place] [address], [place] [phone] [facility] [address] [place] [address] * (ABNORMAL) URIC ACID (01/11/2025 2:26 PM CDT) URIC ACID 11.1(H) 4.0 - 8.0 mg/dL [facility] [place] Comment: Therapeutic target for gout patients: <6.0 mg/dL Blood BLOOD SPECIMEN / Unknown 01/11/2025 2:26 PM CDT 01/11/2025 2:27 PM CDT us Randy Mc MD CHEMISTRY Final Result Performing Organization Address [facility]/ZIP Co de Phone Number [facility] [address] [place] [address], [place] [phone] [facility] [address] [place] [address] * FERRITIN (01/11/2025 2:26 PM CDT) Only the most recent of2 resultswithin the time period is included. FERRITIN 212 24 - 380 ng/mL [facility] [place] Blood BLOOD SPECIMEN / Unknown 01/11/2025 2:26 PM CDT 01/11/2025 2:27 PM CDT Randy Mc MD CHEMISTRY Final Result [facility] [address] [place] [address], [place] [phone] [facility] [address] [place] [address] * (ABNORMAL) HEPATIC FUNCTION PANEL (01/11/2025 2:26 PM CDT) Only the most recent of2 resultswithin the time period is included. PROTEIN, TOTAL 9.4(H) 6.1 - 8.1 g/dL [facility] ALBUMIN 3.3(L) 3.6 - 5.1 g/dL [facility] [place] GLOBULIN 6.1(H) 1.9 - 3.7 g/dL (calc) [facility] [place] ALBUMIN/GLOBULIN RATIO 0.5(L) 1.0 - 2.5 (calc) [facility] [place] BILIRUBIN, TOTAL 0.5 0.2 - 1.2 mg/dL [facility] [place] BILIRUBIN, DIRECT 0.1 < OR = 0.2 mg/dL [facility] [place] BILIRUBIN, INDIRECT 0.4 0.2 - 1.2 mg/dL (calc) [facility] [place] ALKALINE PHOSPHATASE 75 35 - 144 U/L [facility] AST 19 10 - 35 U/L [facility] ALT 15 9 - 46 U/L [facility] [place] Blood BLOOD SPECIMEN / Unknown 01/11/2025 2:26 PM CDT 01/11/2025 2:27 PM CDT us Randy Mc MD CHEMISTRY Final Result [facility] [address] [place] [address], [place] [phone] [facility] [address] [place] [address] * US VENOUS LOWER EXTREMITY LEFT (01/04/2025 11:53 AM CDT) Anatomical Region Laterality Modality LEGS, LEG L, Abdomen Ultrasound 01/04/2025 12:0 7 PM CDT Impressions 01/04/2025 12:07 PM CDT No deep venous thrombosis detected in the left lower extremity. Dictated by Ortiz Mcclellan MD @ 01/04/2025 12:07:46 PM (Electronically Signed) Narrative 01/04/2025 12:07 PM CDT For Patients: As a result of the Cures Act, medical imaging exams and procedure reports are released immediately into your electronic medical record. You may view this report before your referring provider. If you have questions, please contact your health care provider. INDICATION: lower extremity pain and/or swelling. TECHNIQUE: Ultrasound venous duplex left lower extremity. Compression venous exam was performed using juarez-scale, color Doppler, and spectral Doppler analysis. COMPARISON: None. FINDINGS: Patent left common femoral vein, femoral vein, popliteal vein, and visualized calf veins. Procedure Note Ortiz Mcclellan MD - 01/04/2025 For Patients: As a result of the Cures Act, medical imagingexams and procedure reports are released immediately into your electronicmedical record. You may view this report before your referring provider.If you have questions, please contact your health care provider. INDICATION: lower extremity pain and/or swelling. TECHNIQUE: Ultrasound venous duplex left lower extremity. Compression venous exam wasperformed using juarez-scale, color Doppler, and spectral Doppleranalysis. COMPARISON: None. FINDINGS: Patent left common femoral vein, femoral vein, popliteal vein, andvisualized calf veins. IMPRESSION: No deep venous thrombosis detected in the left lower extremity. Dictated by Ortiz Mcclellan MD @ 01/04/2025 12:07:46 PM (Electronically Signed) Leigh LOVE US Final Result * XR SPINE LUMBAR 3 VIEWS (12/27/2024 3:49 PM CDT) Anatomical Region Laterality Modality LUMBAR SPINE Computed Radiogr aphy 12/28/2024 1:05 PM CDT Impressions 12/28/2024 1:05 PM CDT Mild degenerative disc disease L3-4. No significant facet degeneration. Dictated by Joey Lopez MD @ 12/28/2024 1:05:36 PM (Electronically Signed) Narrative 12/28/2024 1:05 PM CDT For Patients: As a result of the Cures Act, medical imaging exams and procedure reports are released immediately into your electronic medical record. You may view this report before your referring provider. If you have questions, please contact your health care provider. INDICATION: Acute left lumbar radiculopathy TECHNIQUE: 3-view lumbar spine. COMPARISON: none FINDINGS: Mild discogenic spurring L3-4. No fracture. No spondylolisthesis. Sacroiliac joints maintained. Degenerative changes of both hips. Procedure Note Joey Lopez MD - 12/28/2024 For Patients: As a result of the Cures Act, medical imagingexams and procedure reports are released immediately into your electronicmedical record. You may view this report before your referring provider.If you have questions, please contact your health care provider. INDICATION: Acute left lumbar radiculopathy TECHNIQUE: 3-view lumbar spine. COMPARISON: none FINDINGS: Mild discogenic spurring L3-4. No fracture. No spondylolisthesis.Sacroiliac joints maintained. Degenerative changes of both hips. IMPRESSION: Mild degenerative disc disease L3-4. No significant facet degeneration. Dictated by Joey Lopez MD @ 12/28/2024 1:05:36 PM (Electronically Signed) Karina Marin MD GENERAL IMAGING Fi nal Result * (ABNORMAL) POCT Urinalysis Dipstick Only [[id number]] (11/30/2024 4:31 PM CDT) PH 5.5 5.0 - 8.0 [facility] SPECIFIC GRAVITY 1.010 1.001 - 1.035 [facility] GLUCOSE NEGATIVE NEGATIVE [facility] BILIRUBIN NEGATIVE NEGATIVE [facility] KETONES 1+(A) NEGATIVE [facility] OCCULT BLOOD TRACE(A) NEGATIVE [facility] PROTEIN NEGATIVE NEGATIVE [facility] NITRITE NEGATIVE NEGATIVE [facility] LEUKOCYTE ESTERASE NEGATIVE NEGATIVE [facility] Urine URINE SPECIMEN / Unknown 11/30/2024 4:31 PM CDT 11/30/2024 4:31 PM CDT us Randy Mc MD URINE Final Result Performing Organization Address City/[facility]/ZIP Co de Phone Number [facility] [address] [place] [address], [facility] [address] [place] [address] * URINALYSIS MICROSCOPIC [17696.1] - routine (11/30/2024 4:30 PM CDT) RBC 0-2 0-2, None Seen /HPF 11/30/2024 10:35 PM CDT [facility] WBC 0-2 0-2, 3-5, None Seen /HPF 11/30/2024 10:35 PM CDT [facility] BACTERIA None Seen None Seen, Rare, Few Bacteria/ HPF 11/30/2024 10:35 PM CDT [facility] EPITHELIAL CELLS None Seen None Seen, Few Epi/HPF 11/30/2024 10:35 PM CDT [facility] HYALINE CASTS 0-2 0-2, 3-5 /LPF 11/30/2024 10:35 PM CDT [facility] Urine URINE SPECIMEN / Unknown Non-Blood / Unknown 11/30/2024 4:30 PM CDT 11/30/2024 4:30 PM CDT us Randy Mc MD URINE Final Result [facility] [address] [place] [address], * PROTEIN/CREAT RATIO,URINE (11/30/2024 4:30 PM CDT) PROTEIN QUANT,RAND URINE 7 1 - 14 mg/dL 12/01/2024 1:06 AM CDT [facility] CREAT,RANDOM URINE 122.0 39.0 - 259.0 mg/dL 12/01/2024 1:06 AM CDT [facility] PROT/CREAT RATIO,UR 0.1 <0.2 12/01/2024 1:06 AM CDT [facility] Urine URINE SPECIMEN / Unknown Non-Blood / Unknown 11/30/2024 4:30 PM CDT 11/30/2024 4:30 PM CDT Randy Mc MD URINE Final Result [facility] [address] [place] [address], * (ABNORMAL) HEMOGLOBIN A1C (11/30/2024 4:17 PM CDT) HEMOGLOBIN A1C 5.7(H) <5.7 % [facility] [place] Comment: For someone without known diabetes, a hemoglobin A1c value between 5.7% and 6.4% is consistent with prediabetes and should be confirmed with a follow-up test. For someone with known diabetes, a value <7% indicates that their diabetes is well controlled. A1c targets should be individualized based on duration of diabetes, age, comorbid conditions, and other considerations. This assay result is consistent with an increased risk of diabetes. Currently, no consensus exists regarding use of hemoglobin A1c for diagnosis of diabetes for children. Blood BLOOD SPECIMEN / Unknown 11/30/2024 4:17 PM CDT 11/30/2024 4:17 PM CDT Narrative [facility] - 12/01/2024 4:40 AM CDT FASTING:NO FASTING: NO Randy Mc MD CHEMISTRY Final Result [facility] [address] [place] [address], [place] [phone] [employer] [facility] [place] [address] [place] [address] * TSH WITH REFLEX (11/30/2024 4:17 PM CDT) TSH W/REFLEX TO FT4 2.84 0.40 - 4.50 mIU/L [facility] [place] Blood BLOOD SPECIMEN / Unknown 11/30/2024 4:17 PM CDT 11/30/2024 4:17 PM CDT Narrative [facility] - 12/01/2024 6:06 AM CDT FASTING:NO FASTING: NO Randy Mc MD CHEMISTRY Final Result [facility] [address] [place] [address], [facility] [address] [place] [address] * (ABNORMAL) LIPID PANEL W REFLEX MEASURED LDL (05/06/2024 4:14 PM CDT) Pathologist [facility] CHOLESTEROL, TOTAL 182 <200 mg/dL [facility] HDL CHOLESTEROL 34(L) > OR = 40 mg/dL [facility] [place] TRIGLYCERIDES 223(H) <150 mg/dL [facility] [place] Comment: If a non-fasting specimen was collected, consider repeat triglyceride testing on a fasting specimen if clinically indicated. Laura et al. J. of Clin. Lipidol. 2015;9:129-169. LDL-CHOLESTEROL 114(H) mg/dL (calc) [facility] [place] Comment: Reference range: <100 Desirable range <100 mg/dL for primary prevention; <70 mg/dL for patients with CHD or diabetic patients with > or = 2 CHD risk factors. LDL-C is now calculated using the Josué calculation, which is a validated novel method providing better accuracy than the Friedewald equation in the estimation of LDL-C. Frank BOYCE et al. RUTHY. 2013;310(19): 5469-6603 (http://education.[employer]/faq/LZQ557) CHOL/HDLC RATIO 5.4(H) <5.0 (calc) [facility] NON HDL CHOLESTEROL 148(H) <130 mg/dL (calc) [facility] [place] Comment: For patients with diabetes plus 1 major ASCVD risk factor, treating to a non-HDL-C goal of <100 mg/dL (LDL-C of <70 mg/dL) is considered a therapeutic option. Blood BLOOD SPECIMEN / Unknown 05/06/2024 4:14 PM CDT 05/06/2024 4:14 PM CDT Randy Mc MD CHEMISTRY Final Result Performing Organization Address City/[facility]/ZIP Co de Phone Number [facility] [address] [place] [address], [facility] [place] [address] [place] [address] * ANTI HCV (06/04/2023 9:46 AM 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) Pathologist [facility] HEPATITIS C ANTIBODY Non-Reacti ve Non-React rodríguez 06/04/2023 5:33 PM 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 [facility] Comment:Please note, per www .CDC.gov: If a patient is known to be at high risk of HCV infection, or is symptomatic, and the physician's suspicion of HCV infection is high, HCV RNA testing is often employed and is of diagnostic value, even after an initial negative anti-HCV test result. Blood BLOOD SPECIMEN / Unknown Venipuncture / Unknown 06/04/2023 9:46 AM 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 06/04/2023 9:48 AM 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 us Randy Mc MD SEND OUTS Final Result [facility] [address] [place] [address], * ANTI HIV 1/2 (06/04/2023 9:46 AM 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) Pathologist [facility] HIV-1/HIV-2 SCREEN Non-Reacti ve Non-Reacti ve 06/05/2023 6:09 AM 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 [facility] Comment:HIV-1 p24 and HIV-1/ HIV-2 Ab Not Detected. Blood BLOOD SPECIMEN / Unknown Venipuncture / Unknown 06/04/2023 9:46 AM 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 06/04/2023 9:48 AM 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 us Randy Mc MD SEND OUTS Final Result [facility] [address] [place] [address], * COLONOSCOPY SCREENING (04/08/2018 1:42 PM CDT) us Gael Paulino MD GI PROCEDURE ORD Final Resu lt from Last 3 Months or Most Recently Relevant to Health Maintenance Insurance [facility] Care Teams Senior Business Intelligence Analyst Relationship Specialty Start Date End Date Randy Mc MD [address] [place] [id number] PCP - General Family Practice 06/04/23 Erna Pendleton, DARIEN [address] [place] [address] [id number] Nurse Navigator - Oncology Registered Nurse 01/18/25
--- OUTSIDE RECORDS SUMMARY | 2025-03-02 17:45 | XMS_ITS | Encounter Summary ---
Author Organization [facility] Address [address] [place] [address] Care Team Providers Care Knot Borer Name Role Phone Unavailable Primary Care Provider Unavailabl e Reason for Referral * Outpatient (Routine) - Closed Specialty Diagnoses / Procedures Referred By Teresa carvalho Referred To Contact Hematology Oncology Diagnoses Multiple Myeloma Not Having Achieved Remission (HCC) Constantin López M.D. [address] [place] [address] Phone: tel: fax: [facility] Referral ID Status Reason Start Date Expiration Date Visits Re quested Visits Authorized [id number] Closed 02/10/2025 08/12/2026 1 1 Scheduling Instructions Rene 10am override per phone call instruction Encounter Details Date Type Department Care Team (Late st Contact Info) Description 02/10/2025 Orders Only Division of Hematology in [place], [place] [address] [place] [phone] Mandy Godfrey Multiple Myeloma Not Having Achieved [...] things needed for daily living? No 01/27/2025 [facility] Utilities Answer Date Recorded In the past 12 months has [employer] electric, gas, oil, or water company threatened to shut off services in your home? No 01/27/2025 Housing Stability Answer Date Recorded What is your living situation today? 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 [address] [place] [phone] 03/08/2025 8:45 AM CDT Infusion Department of Oncology in [place], [place] [address] [place] [phone] Constantin López M.D. [address] [place] [phone] 03/08/2025 10:30 AM CDT Comprehensive Visit Department of Vascular Medicine in [place], [place] [address] [place] [phone] Vic Flores M.D. [address] [place] [phone] 03/11/2025 12:30 PM CDT Diagnostic Division of Pulmonary Medicine in [place], [place] [address] [place] [phone] Constantin López M.D. [address] [place] [phone] 03/11/2025 2:00 PM CDT Appointment Department of Vascular Medicine in [place], [place] [address] [place] [address] Constantin López M.D. [address] [place] [phone] Discharge Disposition: Home or Self Care 03/15/2025 9:00 AM CDT Comprehensive Visit Department of Spine in [place], [place] [address] [place] [phone] Hebert Francis APRN, C.N.P., M.S.N. [address] [place] [phone] 03/15/2025 12:30 PM CDT Appointment Department of Laboratory Medicine and Pathology, [facility], in [place], [place] [address] [place] [phone] Harshad Perez M.D. [address] [place] [phone] 03/15/2025 2:30 PM CDT Office Visit Division of Hematology in [place], [place] [address] [place] [phone] Mely Hayden APRN, C.N.P., D.N.P., M.S. [address] [place] [phone] 03/15/2025 4:00 PM CDT Infusion Department of Oncology in [place], [place] [address] [place] [phone] Harshad Perez M.D. [address] [place] [phone] 03/16/2025 1:30 PM CDT Comprehensive Visit Division of Pulmonary Medicine in [place], [place] [address] [place] [phone] Morgan Peck M.D. [address] [place] [phone] 03/22/2025 11:10 AM CDT Appointment Department of Laboratory Medicine and Pathology, [facility], in [place], [place] [address] [place] [phone] Harshad Perez M.D. [address] [place] [phone] 03/22/2025 1:00 PM CDT Infusion Department of Oncology in [place], [place] [address] [place] [phone] Harshad Perez M.D. [address] [place] [phone] 03/29/2025 9:15 AM CDT Appointment Division of Pulmonary Medicine in [place], [place] [address] [place] [phone] Harshad Perez M.D. [address] [place] [phone] Discharge Disposition: Home or Self Care 03/29/2025 10:30 AM CDT Appointment Department of Laboratory Medicine and Pathology, [facility] in [place], [place] [address] [place] [phone] Harshad Perez M.D. [address] [place] [phone] 03/29/2025 11:15 AM CDT Nurse Only Division of Hematology in [place], [place] [address] [place] [phone] Harshad Perez M.D. [address] [place] [phone] 03/29/2025 1:30 PM CDT Infusion Department of Oncology in [place], [place] [address] [place] [phone] Harshad Perez M.D. [address] [place] [phone] 04/05/2025 10:10 AM CDT Appointment Department of Laboratory Medicine and Pathology, [facility] in [place], [place] [address] [place] [phone] Harshad Perez M.D. [address] [place] [phone] 04/05/2025 12:00 PM CDT Infusion Department of Oncology in [place], [place] [address] [place] [phone] Harshad Perez M.D. [address] [place] [phone] 04/12/2025 11:40 AM CDT Appointment Department of Laboratory Medicine and Pathology, [facility], in [place], [place] [address] [place] [phone] Harshad Perez M.D. [address] [place] [phone] 04/12/2025 1:30 PM CDT Office Visit Division of Hematology in [place], [place] [address] [place] [address] Tr Hernandez M.D. [address] [place] [phone] 04/12/2025 3:30 PM CDT Infusion Department of Oncology in [place], [place] [address] [place] [phone] Harshad Perez M.D. [address] [place] [phone] 04/19/2025 10:15 AM CDT Infusion Department of Oncology in [place], [place] [address] [place] [phone] Harshad Perez M.D. [address] [place] [phone] 04/26/2025 10:10 AM CDT Appointment Department of Laboratory Medicine and Pathology, [facility], in [place], [place] [address] [place] [phone] Harshad Perez M.D. [address] [place] [phone] 04/26/2025 11:00 AM CDT Nurse Only Division of Hematology in [place], [place] [address] [place] [phone] Harshad Perez M.D. [address] [place] [phone] 04/26/2025 12:00 PM CDT Infusion Department of Oncology in [place], [place] [address] [place] [phone] Harshad Perez M.D. [address] [place] [phone] 04/26/2025 1:30 PM CDT Appointment Division of Pulmonary Medicine in [place], [place] [address] [place] [phone] Harshad Perez M.D. [address] [place] [phone] Discharge Disposition: Home or Self Care 05/03/2025 10:15 AM CDT Infusion Department of Oncology in [place], [place] [address] [place] [address] Harshad Perez M.D. [address] [place] [phone] 05/10/2025 9:40 AM BOAT OFFICER Appointment Department of Laboratory Medicine and Pathology, [facility] in [place], [place] [address] [place] [phone] Constantin López M.D. [address] [place] [phone] 05/10/2025 11:30 AM BOAT OFFICER Office Visit Division of Hematology in [place], [place] [address] [place] [phone] Mely Hayden APRN, C.N.P., D.N.P., M.S. [address] [place] [phone] 05/10/2025 1:00 PM BOAT OFFICER Infusion Department of Oncology in [place], [place] [address] [place] [phone] Constantin López M.D. [address] [place] [phone] 05/17/2025 10:15 AM BOAT OFFICER Infusion Department of Oncology in [place], [place] [address] [place] [phone] Constantin López M.D. [address] [place] [phone] 05/24/2025 10:00 AM BOAT OFFICER Appointment Department of Laboratory Medicine and Pathology, [facility] in [place], [place] [address] [place] [phone] Constantin López M.D. [address] [place] [phone] 05/24/2025 10:45 AM BOAT OFFICER Appointment Division of Pulmonary Medicine in [address] [phone] Harshad Perez M.D. [address] [place] [phone] Discharge Disposition: Home or Self Care 05/24/2025 12:00 PM BOAT OFFICER Infusion Department of Oncology in [place], [place] [address] [place] [phone] Constantin López M.D. [address] [place] [phone] 05/31/2025 10:00 AM BOAT OFFICER Infusion Department of Oncology in [address] [phone] Constantin López M.D. [address] [place] [phone] Scheduled Referrals Name Type Priority Associated Diagnoses Order Schedule Hematology office visit (clinic) [place]; Myeloma; General Outpatient Referral Routine Multiple Myeloma Not Having Achieved Remission (HCC) Expected: 02/11/2025, Expires: 05/13/2026 documented as of this encounter Results * (ABNORMAL) Albumin (02/11/2025 8:46 AM CDT) Albumin, S 3.3(L) 3.5 - 5.0 g/dL 02/11/2025 9:55 AM CDT DTL Blood (Blood, Venous) 02/11/2025 8:46 AM CDT 02/11/2025 9:06 AM CDT Constantin López M.D. LAB BLOOD ADD-ON Final Resu lt [facility] 200 [place] [address] * (ABNORMAL) Calcium, Total (02/11/2025 8:46 AM CDT) Calcium, Total, S 8.4(L) 8.8 - 10.2 mg/dL 02/11/2025 9:55 AM CDT DT Blood (Blood, Venous) 02/11/2025 8:46 AM CDT 02/11/2025 9:06 AM CDT Constantin López M.D. LAB BLOOD ADD-ON Final Resu lt [facility] [address] [place] [address], [place] [address] * Creatinine with Estimated GFR (02/11/2025 8:46 AM CDT) Creatinine 1.21 0.74 - 1.35 mg/dL 02/11/2025 9:55 AM CDT DT Estimated GFR (eGFR) 68 >=60 mL/min/BSA 02/11/2025 9:55 AM CDT DTL Comment: Estimated GFR calculated using the 2020 CKD_EPI creatinine equation. Blood (Blood, Venous) 02/11/2025 8:46 AM CDT 02/11/2025 9:06 AM CDT Constantin López M.D. LAB BLOOD ADD-ON Final Resu lt Performing Organization Address City/[facility]/ZIP Co de Phone Number [facility] [address] [place] [address] * ALT (Alanine Aminotransferase) (02/11/2025 8:46 AM CDT) Alanine Aminotransferase (ALT), S 15 7 - 55 U/L 02/11/2025 9:55 AM CDT DTL Blood (Blood, Venous) 02/11/2025 8:46 AM CDT 02/11/2025 9:06 AM CDT Constantin López M.D. LAB BLOOD ADD-ON Final Resu lt Performing Organization Address [facility]/ZIP Co de Phone Number [facility] [address] [place] [address], [facility] 200 [place] [address] * AST (Aspartate Aminotransferase) (02/11/2025 8:46 AM CDT) Aspartate Aminotransferase (AST), S 18 8 - 48 U/L 02/11/2025 9:55 AM CDT DTL Blood (Blood, Venous) 02/11/2025 8:46 AM CDT 02/11/2025 9:06 AM CDT us Constantin López M.D. LAB BLOOD ADD-ON Final Resu lt [facility] [address] [place] [address], [facility] [address] [place] [address] * Bilirubin, Direct (02/11/2025 8:46 AM CDT) Bilirubin, Direct, S <0.1 0.0 - 0.3 mg/dL 02/11/2025 9:55 AM CDT DTL Blood (Blood, Venous) 02/11/2025 8:46 AM CDT 02/11/2025 9:06 AM CDT us Constantin López M.D. LAB BLOOD ADD-ON Final Resu lt [facility] [address] [place] [address] * Bilirubin, Total (02/11/2025 8:46 AM CDT) Bilirubin, Total, S 0.4 0.0 - 1.2 mg/dL 02/11/2025 9:55 AM CDT DT Blood (Blood, Venous) 02/11/2025 8:46 AM CDT 02/11/2025 9:06 AM CDT Result Cristy López M.D. LAB BLOOD ADD-ON Final Resu lt Performing Organization Address [facility]/ZIP Co de Phone Number [facility] [address] [place] [address], [facility] [address] [place] [address] * Alkaline Phosphatase (02/11/2025 8:46 AM CDT) Alkaline Phosphatase, S 68 40 - 129 U/L 02/11/2025 9:55 AM CDT DT Blood (Blood, Venous) 02/11/2025 8:46 AM CDT 02/11/2025 9:06 AM CDT us Constantin López M.D. LAB BLOOD ADD-ON Final Resu lt [facility] [address] [place] [address], [facility] [address] [place] [address] * Glucose, Fasting (02/11/2025 8:46 AM CDT) Glucose, P 87 70 - 100 mg/dL 02/11/2025 9:36 AM CDT DTL Last Intake 16 hr 02/11/2025 9:06 AM CDT DTL Blood (Blood, Venous) 02/11/2025 8:46 AM CDT 02/11/2025 9:06 AM CDT Constantin López M.D. LAB BLOOD NON ADD-ON Final Result [facility] [address] [place], [place] [address] 200 [place] [address] * Potassium (02/11/2025 8:46 AM CDT) Potassium, S 4.3 3.6 - 5.2 mmol/L 02/11/2025 9:55 AM CDT DTL Blood (Blood, Venous) 02/11/2025 8:46 AM CDT 02/11/2025 9:06 AM CDT Constantin López M.D. LAB BLOOD ADD-ON Final Resu lt [facility] [address] [place] [address], [facility] [address] [place] [address] * Sodium (02/11/2025 8:46 AM CDT) Sodium, S 135 135 - 145 mmol/L 02/11/2025 9:55 AM CDT DTL Blood (Blood, Venous) 02/11/2025 8:46 AM CDT 02/11/2025 9:06 AM CDT us Constantin López M.D. LAB BLOOD ADD-ON Final Resu lt [facility] [address] [place] [address], [place] DTL [facility] [address] [place] [address] * (ABNORMAL) CBC with Differential, Blood (02/11/2025 [...] - 0.08 x10(9)/L 02/11/2025 9:56 AM CDT DT Blood (Blood, Venous) 02/11/2025 8:46 AM CDT 02/11/2025 9:18 AM CDT us Constantin López M.D. LAB BLOOD ADD-ON Final Resu lt [facility] [address] [place] [address], [facility] [address] [place] [address] * Thyroid Function [place] (02/11/2025 8:46 AM CDT) Pathologist [facility] TSH, Sensitive 3.2 0.3 - 4.2 mIU/L 02/11/2025 9:55 AM CDT DT Blood (Blood, Venous) 02/11/2025 8:46 AM CDT 02/11/2025 9:06 AM CDT Constantin López M.D. LAB BLOOD ADD-ON Final Resu lt Performing Organization Address City/[facility]/ZIP Co de Phone Number [facility] [address] [place] [address] * (ABNORMAL) CRP (C-Reactive Protein) (02/11/2025 8:46 AM CDT) C-Reactive Protein (CRP), S 10.7(H) <5.0 mg/L 02/11/2025 9:55 AM CDT DTL Blood (Blood, Venous) 02/11/2025 8:46 AM CDT 02/11/2025 9:06 AM CDT us Constantin López M.D. LAB BLOOD ADD-ON Final Resu lt [facility] [address] [place] [address], [facility] [address] [place] [address] * APTT (Activated Partial Thromboplastin Time) (02/11/2025 8:46 AM CDT) Activated Partial Thrombopl Time, P 25 25 - 37 sec 02/11/2025 9:38 AM CDT DTL Blood (Blood, Venous) 02/11/2025 8:46 AM CDT 02/11/2025 9:18 AM CDT Constantin López M.D. LAB BLOOD ADD-ON Final Resu lt [facility] [address] [place] [address], [facility] [address] [place] [address] * Prothrombin Time (PT) (02/11/2025 8:46 AM [...] M.D. LAB BLOOD ADD-ON Final Resu lt [facility] [address] [place] [address], [facility] [address] [place] [address] * HBV DNA Detect/Quant, Serum (02/11/2025 8:46 AM CDT) [facility] HBV DNA Detect/Quant, S Undetected Undetected IU/mL 02/12/2025 6:37 PM CDT [facility] Comment: Result in log IU/mL is Undetected. ----ADDITIONAL INFORMATION---- The quantification range of this assay is 10 to 1,000,000,000 IU/mL (1.00 log to 9.00 log IU/mL). Testing was performed using the riaz HBV test ([employer] Blood (Blood, Venous) 02/11/2025 8:46 AM CDT 02/11/2025 11:31 AM CDT Constantin López M.D. LAB MICROBIOLOGY - BLOOD OR DERABLES Final Result [facility] [address] [place] [address] [facility] [address] [place] [address] [place] [address] documented in this encounter Visit Diagnoses Diagnosis Multiple Myeloma Not Having Achieved Remission (HCC)- Primary documented in this encounter Additional Health Concerns Infection Onset Date Last Indicated Resolved Time Protective Environment 01/27/2025 01/27/2025 documented as of this encounter
--- OUTSIDE RECORDS SUMMARY | 2025-03-02 17:45 | XMS_ITS | Encounter Summary ---
Author Organization [facility] Address [address] [place] [address] Care Team Providers Care Classer Name Role Phone Unavailable Primary Care Provider Unavailabl e Reason for Visit * Reason Onset Date Comments Med Refill 02/23/2025 amitriptyline 2% -ketamine 5%-lidocaine 5% in vanicream Encounter Details Date Type Department Care Team (Latest Contact Info) Description 02/23/2025 Clinical Communication Division of Hematology in [place], [place] [address] [place] [address] Harshad Perez M.D. [address] [place] [address] Med Refill (amitriptyline 2%-ketamine 5%-lidocaine 5% in vanicream) Social History Tobacco Use Types Packs/Day Years [...] things needed for daily living? No 01/27/2025 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 [address] [place] [phone] 03/08/2025 8:45 AM CDT Infusion Department of Oncology in [place], [place] [address] [place] [phone] Constantin López M.D. [address] [place] [phone] 03/08/2025 10:30 AM CDT Comprehensive Visit Department of Vascular Medicine in [place], [place] [address] [place] [phone] Vic Flores M.D. [address] [place] [phone] 03/11/2025 12:30 PM CDT Diagnostic Division of Pulmonary Medicine in [place], [place] [address] [place] [phone] Constantin López M.D. [address] [place] [phone] 03/11/2025 2:00 PM CDT Appointment Department of Vascular Medicine in [place], [place] [address] [place] [phone] Constantin López M.D. [address] [place] [phone] Discharge Disposition: Home or Self Care 03/15/2025 9:00 AM CDT Comprehensive Visit Department of Spine in [place], [place] [address] [place] [phone] Hebert Francis APRN, C.N.P., M.S.N. [address] [place] [phone] 03/15/2025 12:30 PM CDT Appointment Department of Laboratory Medicine and Pathology, [facility] in [place], [place] [address] [place] [phone] Harshad Perez M.D. [address] [place] [phone] 03/15/2025 2:30 PM CDT Office Visit Division of Hematology in [place], [place] [address] [place] [phone] Mely Hayden APRN, C.N.P., D.N.P., M.S. [address] [place] [phone] 03/15/2025 4:00 PM CDT Infusion Department of Oncology in [place], [place] [address] [place] [address] Harshad Perez M.D. [address] [place] [phone] 03/16/2025 1:30 PM CDT Comprehensive Visit Division of Pulmonary Medicine in [place], [place] [address] [place] [phone] Morgan Peck M.D. [address] [place] [phone] 03/22/2025 11:10 AM CDT Appointment Department of Laboratory Medicine and Pathology, [facility] in [place], [place] [address] [place] [phone] Harshad Perez M.D. [address] [place] [phone] 03/22/2025 1:00 PM CDT Infusion Department of Oncology in [place], [place] [address] [place] [address] Harshad Perez M.D. [address] [place] [phone] 03/29/2025 9:15 AM CDT Appointment Division of Pulmonary Medicine in [place], [place] [address] [place] [phone] Harshad Perez M.D. [address] [place] [phone] Discharge Disposition: Home or Self Care 03/29/2025 10:30 AM CDT Appointment Department of Laboratory Medicine and Pathology, [facility] in [place], [place] [address] [place] [address] Harshad Perez M.D. [address] [place] [phone] 03/29/2025 11:15 AM CDT Nurse Only Division of Hematology in [place], [place] [address] [place] [address] Harshad Perez M.D. [address] [place] [phone] 03/29/2025 1:30 PM CDT Infusion Department of Oncology in [place], [place] [address] [place] [phone] Harshad Perez M.D. [address] [place] [phone] 04/05/2025 10:10 AM CDT Appointment Department of Laboratory Medicine and Pathology, [facility] in [place], [place] [address] [place] [address] Harshad Perez M.D. [address] [place] [phone] 04/05/2025 12:00 PM CDT Infusion Department of Oncology in [place], [place] [address] [place] [address] Harshad Perez M.D. [address] [place] [phone] 04/12/2025 11:40 AM CDT Appointment Department of Laboratory Medicine and Pathology, [facility] in [place], [place] [address] [place] [address] Harshad Perez M.D. [address] [place] [phone] 04/12/2025 1:30 PM CDT Office Visit Division of Hematology in [place], [place] [address] [place] [phone] Tr Hernandez M.D. [address] [place] [phone] 04/12/2025 3:30 PM CDT Infusion Department of Oncology in [place], [place] [address] [place] [address] Harshad Perez M.D. [address] [place] [phone] 04/19/2025 10:15 AM CDT Infusion Department of Oncology in [place], [place] [address] [place] [address] Harshad Perez M.D. [address] [place] [phone] 04/26/2025 10:10 AM CDT Appointment Department of Laboratory Medicine and Pathology, [facility] in [place], [place] [address] [place] [address] Harshad Perez M.D. [address] [place] [phone] 04/26/2025 11:00 AM CDT Nurse Only Division of Hematology in [place], [place] [address] [place] [phone] Harshad Perez M.D. [address] [place] [phone] 04/26/2025 12:00 PM CDT Infusion Department of Oncology in [place], [place] [address] [place] [phone] Harshad Perez M.D. [address] [place] [phone] 04/26/2025 1:30 PM CDT Appointment Division of Pulmonary Medicine in [place], [place] [address] [place] [phone] Harshad Perez M.D. [address] [place] [phone] Discharge Disposition: Home or Self Care 05/03/2025 10:15 AM CDT Infusion Department of Oncology in [place], [place] [address] [place] [phone] Harshad Perez M.D. [address] [place] [phone] 05/10/2025 9:40 AM COORDINATE MEASURING EQUIPMENT OPERATOR Appointment Department of Laboratory Medicine and Pathology, [facility] in [place], [place] [address] [place] [phone] Constantin López M.D. [address] [place] [phone] 05/10/2025 11:30 AM COORDINATE MEASURING EQUIPMENT OPERATOR Office Visit Division of Hematology in [place], [place] [address] [place] [phone] Mely Hayden, ANY, C.N.P., D.N.P., M.S. [address] [place] [phone] 05/10/2025 1:00 PM COORDINATE MEASURING EQUIPMENT OPERATOR Infusion Department of Oncology in [place], [place] [address] [place] [phone] Constantin López M.D. [address] [place] [phone] 05/17/2025 10:15 AM COORDINATE MEASURING EQUIPMENT OPERATOR Infusion Department of Oncology in [place], [place] [address] [place] [phone] Constantin López M.D. [address] [place] [phone] 05/24/2025 10:00 AM COORDINATE MEASURING EQUIPMENT OPERATOR Appointment Department of Laboratory Medicine and Pathology, [facility], in [place], [place] [address] [place] [phone] Constantin López M.D. [address] [place] [phone] 05/24/2025 10:45 AM COORDINATE MEASURING EQUIPMENT OPERATOR Appointment Division of Pulmonary Medicine in [place], [place] [address] [place] [phone] Harshad Perez M.D. [address] [place] [phone] Discharge Disposition: Home or Self Care 05/24/2025 12:00 PM COORDINATE MEASURING EQUIPMENT OPERATOR Infusion Department of Oncology in [place], [place] [address] [place] [phone] Constantin López M.D. [address] [place] [phone] 05/31/2025 10:00 AM COORDINATE MEASURING EQUIPMENT OPERATOR Infusion Department of Oncology in [place], [place] [address] [place] [phone] Constantin López M.D. [address] [place] [phone] documented as of this encounter Visit Diagnoses Not on filedocumented in this encounter Additional Health Concerns Infection Onset Date Last Indicated Resolved Time Protective Environment 01/27/2025 01/27/2025 documented as of this encounter
--- OUTSIDE RECORDS SUMMARY | 2025-03-02 17:45 | XMS_ITS | Encounter Summary ---
Author Organization [facility] Address [address] [place] [address] Care Team Providers Care Meat Slicer Name Role Phone Unavailable Primary Care Provider Unavailabl e Reason for Referral * Outpatient (Routine) - Closed Specialty Diagnoses / Procedures Referred By Teresa carvalho Referred To Contact Hematology Oncology Constantin López M.D. [address] [place] [phone] Phone: tel: fax: [facility] Referral ID Status Reason Start Date Expiration Date Visits Re quested Visits Authorized [id number] Closed 02/09/2025 08/11/2026 1 1 Encounter Details Date Type Department Care Team (Late st Contact Info) Description 02/09/2025 Orders Only Division of Hematology in [place], [place] [address] [place] [phone] Constantin López M.D. [address] [place] [phone] Social History Tobacco Use Types Packs/Day Years [...] things needed for daily living? No 01/27/2025 [facility] Utilities Answer Date Recorded In the past 12 months has [employer], gas, oil, or water company threatened to shut off services in your home? No 01/27/2025 Housing Stability Answer Date Recorded What is your living situation today? 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, in [place], [place] [address] [place] [phone] Constantin López M.D. 200 [place] [phone] 03/08/2025 8:45 AM CDT Infusion Department of Oncology in [place], [place] [address] [place] [address] Constantin López M.D. 200 [place] [phone] 03/08/2025 10:30 AM CDT Comprehensive Visit Department of Vascular Medicine in [place], [place] [address] [place] [phone] Vic Flores M.D. [address] [place] [phone] 03/11/2025 12:30 PM CDT Diagnostic Division of Pulmonary Medicine in [place], [place] [address] [place] [phone] Constantin López M.D. [address] [place] [phone] 03/11/2025 2:00 PM CDT Appointment Department of Vascular Medicine in [place], [place] [address] [place] [phone] Constantin López M.D. [address] [place] [phone] Discharge Disposition: Home or Self Care 03/15/2025 9:00 AM CDT Comprehensive Visit Department of Spine in [place], [place] [address] [place] [phone] Hebert Francis APRN, C.N.P., M.S.N. [address] [place] [phone] 03/15/2025 12:30 PM CDT Appointment Department of Laboratory Medicine and Pathology, [facility], in [place], [place] [address] [place] [phone] Harshad Perez M.D. [address] [place] [phone] 03/15/2025 2:30 PM CDT Office Visit Division of Hematology in [place], [place] [address] [place] [phone] Mely Hayden, ANY, C.N.P., D.N.P., M.S. [address] [place] [phone] 03/15/2025 4:00 PM CDT Infusion Department of Oncology in [place], [place] [address] [place] [address] Harshad Perez M.D. [address] [place] [phone] 03/16/2025 1:30 PM CDT Comprehensive Visit Division of Pulmonary Medicine in [place], [place] [address] [place] [phone] Morgan Peck M.D. [address] [place] [phone] 03/22/2025 11:10 AM CDT Appointment Department of Laboratory Medicine and Pathology, [facility], in [place], [place] [address] [place] [address] Harshad Perez M.D. [address] [place] [phone] 03/22/2025 1:00 PM CDT Infusion Department of Oncology in [place], [place] [address] [place] [phone] Harshad Perez M.D. [address] [place] [phone] 03/29/2025 9:15 AM CDT Appointment Division of Pulmonary Medicine in [place], [place] [address] [place] [phone] Harshad Perez M.D. [address] [place] [phone] Discharge Disposition: Home or Self Care 03/29/2025 10:30 AM CDT Appointment Department of Laboratory Medicine and Pathology, [facility] in [place], [place] [address] [place] [phone] Harshad Perez M.D. [address] [place] [phone] 03/29/2025 11:15 AM CDT Nurse Only Division of Hematology in [place], [place] [address] [place] [address] Harshad Perez M.D. [address] [place] [phone] 03/29/2025 1:30 PM CDT Infusion Department of Oncology in [place], [place] [address] [place] [address] Harshad Perez M.D. [address] [place] [phone] 04/05/2025 10:10 AM CDT Appointment Department of Laboratory Medicine and Pathology, [facility] in [place], [place] [address] [place] [address] Harshad Perez M.D. [address] [place] [phone] 04/05/2025 12:00 PM CDT Infusion Department of Oncology in [place], [place] [address] [place] [phone] Harshad Perez M.D. [address] [place] [phone] 04/12/2025 11:40 AM CDT Appointment Department of Laboratory Medicine and Pathology, [facility] in [place], [place] [address] [place] [address] Harshad Perez M.D. [address] [place] [phone] 04/12/2025 1:30 PM CDT Office Visit Division of Hematology in [place], [place] [address] [place] [phone] Tr Hernandez M.D. [address] [place] [address] 04/12/2025 3:30 PM CDT Infusion Department of Oncology in [place], [place] [address] [place] [address] Harshad Perez M.D. [address] [place] [phone] 04/19/2025 10:15 AM CDT Infusion Department of Oncology in [place], [place] [address] [place] [address] Harshad Perez M.D. [address] [place] [phone] 04/26/2025 10:10 AM CDT Appointment Department of Laboratory Medicine and Pathology, [facility], in [place], [place] [address] [place] [phone] Harshad Perez M.D. [address] [place] [phone] 04/26/2025 11:00 AM CDT Nurse Only Division of Hematology in [place], [place] [address] [place] [phone] Harshad Perez M.D. [address] [place] [phone] 04/26/2025 12:00 PM CDT Infusion Department of Oncology in [place], [place] [address] [place] [phone] Harshad Perez M.D. [address] [place] [phone] 04/26/2025 1:30 PM CDT Appointment Division of Pulmonary Medicine in [place], [place] [address] [place] [phone] Harshad Perez M.D. [address] [place] [phone] Discharge Disposition: Home or Self Care 05/03/2025 10:15 AM CDT Infusion Department of Oncology in [place], [place] [address] [place] [address] Harshad Perez M.D. [address] [place] [phone] 05/10/2025 9:40 AM ELECTRICAL TECHNICIAN Appointment Department of Laboratory Medicine and Pathology, [facility], in [place], [place] [address] [place] [phone] Constantin López M.D. [address] [place] [phone] 05/10/2025 11:30 AM ELECTRICAL TECHNICIAN Office Visit Division of Hematology in [place], [place] [address] [place] [phone] Mely Hayden APRN, C.N.P., D.N.P., M.S. [address] [place] [phone] 05/10/2025 1:00 PM ELECTRICAL TECHNICIAN Infusion Department of Oncology in [place], [place] [address] [place] [address] Constantin López M.D. [address] [place] [phone] 05/17/2025 10:15 AM ELECTRICAL TECHNICIAN Infusion Department of Oncology in [place], [place] [address] [place] [phone] Constantin López M.D. [address] [place] [phone] 05/24/2025 10:00 AM ELECTRICAL TECHNICIAN Appointment Department of Laboratory Medicine and Pathology, [facility] in [place], [place] [address] [place] [phone] Constantin López M.D. [address] [place] [phone] 05/24/2025 10:45 AM ELECTRICAL TECHNICIAN Appointment Division of Pulmonary Medicine in [address] [phone] Harshad Perez M.D. [address] [place] [phone] Discharge Disposition: Home or Self Care 05/24/2025 12:00 PM ELECTRICAL TECHNICIAN Infusion Department of Oncology in [address] [address] Constantin López M.D. [address] [place] [phone] 05/31/2025 10:00 AM ELECTRICAL TECHNICIAN Infusion Department of Oncology in [address] [phone] Constantin López M.D. [address] [place] [phone] Scheduled Referrals Name Type Priority Associated Diagnoses Order Schedule Hematology office visit (clinic) [place]; Myeloma; General Outpatient Referral Routine Expected: 02/10/2025, Expires: 05/12/2026 documented as of this encounter Visit Diagnoses Not on filedocumented in this encounter Additional Health Concerns Infection Onset Date Last Indicated Resolved Time Protective Environment 01/27/2025 01/27/2025 documented as of this encounter
--- OUTSIDE RECORDS SUMMARY | 2025-03-02 17:45 | XMS_ITS | Encounter Summary ---
Author Organization [facility] Address [address] [place] [address] Care Team Providers Care Medical Dermatologist Name Role Phone Unavailable Primary Care Provider Unavailabl e Encounter Details Date Type Department Care Team (Late Contact Info) Description 02/16/2025 Orders Only Division of Hematology in [place], [place] [address] [place] [address] Constantin López M.D. [address] [place] [address] Social History Tobacco Use Types Packs/Day Years [...] things needed for daily living? No 01/27/2025 [facility] Utilities Answer Date Recorded In the past 12 months has th e electric, gas, oil, or water company threatened to shut off services in your home? No 01/27/2025 Housing Stability Answer Date Recorded What is your living situation today? 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 [address] [place] [phone] 03/08/2025 8:45 AM CDT Infusion Department of Oncology in [place], [place] [address] [place] [phone] Constantin López M.D. [address] [place] [phone] 03/08/2025 10:30 AM CDT Comprehensive Visit Department of Vascular Medicine in [place], [place] [address] [place] [phone] Vic Flores M.D. [address] [place] [phone] 03/11/2025 12:30 PM CDT Diagnostic Division of Pulmonary Medicine in [place], [place] [address] [place] [phone] Constantin López M.D. [address] [place] [phone] 03/11/2025 2:00 PM CDT Appointment Department of Vascular Medicine in [place], [place] [address] [place] [address] Constantin López M.D. [address] [place] [phone] Discharge Disposition: Home or Self Care 03/15/2025 9:00 AM CDT Comprehensive Visit Department of Spine in [place], [place] [address] [place] [phone] Hebert Francis APRN, C.N.P., M.S.N. [address] [place] [phone] 03/15/2025 12:30 PM CDT Appointment Department of Laboratory Medicine and Pathology, [facility] in [place], [place] [address] [place] [address] Harshad Perez M.D. [address] [place] [phone] 03/15/2025 2:30 PM CDT Office Visit Division of Hematology in [place], [place] [address] [place] [phone] Mely Hayden APRN, C.N.P., D.N.P., M.S. [address] [place] [phone] 03/15/2025 4:00 PM CDT Infusion Department of Oncology in [place], [place] [address] [place] [phone] Harshad Perez M.D. [address] [place] [phone] 03/16/2025 1:30 PM CDT Comprehensive Visit Division of Pulmonary Medicine in [place], [place] [address] [place] [phone] Morgan Peck M.D. [address] [place] [phone] 03/22/2025 11:10 AM CDT Appointment Department of Laboratory Medicine and Pathology, [facility], in [place], [place] [address] [place] [address] Harshad Perez M.D. [address] [place] [phone] 03/22/2025 1:00 PM CDT Infusion Department of Oncology in [place], [place] [address] [place] [phone] Harshad Perez M.D. [address] [place] [phone] 03/29/2025 9:15 AM CDT Appointment Division of Pulmonary Medicine in [place], [place] [address] [place] [phone] Harshad Perez M.D. [address] [place] [phone] Discharge Disposition: Home or Self Care 03/29/2025 10:30 AM CDT Appointment Department of Laboratory Medicine and Pathology, [facility], in [place], [place] [address] [place] [address] Harshad Perez M.D. [address] [place] [phone] 03/29/2025 11:15 AM CDT Nurse Only Division of Hematology in [place], [place] [address] [place] [address] Harshad Perez M.D. [address] [place] [phone] 03/29/2025 1:30 PM CDT Infusion Department of Oncology in [place], [place] [address] [place] [address] Harshad Perez M.D. [address] [place] [phone] 04/05/2025 10:10 AM CDT Appointment Department of Laboratory Medicine and Pathology, [facility] in [place], [place] [address] [place] [phone] Harshad Perez M.D. [address] [place] [phone] 04/05/2025 12:00 PM CDT Infusion Department of Oncology in [place], [place] [address] [place] [address] Harshad Perez M.D. [address] [place] [phone] 04/12/2025 11:40 AM CDT Appointment Department of Laboratory Medicine and Pathology, [facility] in [place], [place] [address] [place] [address] Harshad Perez M.D. [address] [place] [phone] 04/12/2025 1:30 PM CDT Office Visit Division of Hematology in [place], [place] [address] [place] [phone] Tr Hernandez M.D. [address] [place] [phone] 04/12/2025 3:30 PM CDT Infusion Department of Oncology in [place], [place] [address] [place] [address] Harshad Perez M.D. [address] [place] [phone] 04/19/2025 10:15 AM CDT Infusion Department of Oncology in [place], [place] [address] [place] [address] Harshad Perez M.D. [address] [place] [phone] 04/26/2025 10:10 AM CDT Appointment Department of Laboratory Medicine and Pathology, [facility] in [place], [place] [address] [place] [address] Harshad Perez M.D. [address] [place] [phone] 04/26/2025 11:00 AM CDT Nurse Only Division of Hematology in [place], [place] [address] [place] [phone] Harshad Perez M.D. [address] [place] [phone] 04/26/2025 12:00 PM CDT Infusion Department of Oncology in [place], [place] [address] [place] [address] Harshad Perez M.D. [address] [place] [phone] 04/26/2025 1:30 PM CDT Appointment Division of Pulmonary Medicine in [place], [place] [address] [place] [address] Harshad Perez M.D. [address] [place] [phone] Discharge Disposition: Home or Self Care 05/03/2025 10:15 AM CDT Infusion Department of Oncology in [place], [place] [address] [place] [phone] Harshad Perez M.D. [address] [place] [phone] 05/10/2025 9:40 AM SKI PRODUCTION SUPERVISOR Appointment Department of Laboratory Medicine and Pathology, [place], [place] [address] [place] [phone] Constantin López M.D. [address] [place] [phone] 05/10/2025 11:30 AM SKI PRODUCTION SUPERVISOR Office Visit Division of Hematology in [place], [place] [address] [place] [phone] Mely Hayden, ANY, C.N.P., D.N.P., M.S. [address] [place] [phone] 05/10/2025 1:00 PM SKI PRODUCTION SUPERVISOR Infusion Department of Oncology in [place], [place] [address] [place] [phone] Constantin López M.D. [address] [place] [phone] 05/17/2025 10:15 AM SKI PRODUCTION SUPERVISOR Infusion Department of Oncology in [address] [phone] Constantin López M.D. [address] [place] [phone] 05/24/2025 10:00 AM SKI PRODUCTION SUPERVISOR Appointment Department of Laboratory Medicine and Pathology, [facility] in [place], [place] [address] [place] [phone] Constantin López M.D. [address] [place] [phone] 05/24/2025 10:45 AM SKI PRODUCTION SUPERVISOR Appointment Division of Pulmonary Medicine in [place], [place] [address] [place] [phone] Harshad Perez M.D. [address] [place] [phone] Discharge Disposition: Home or Self Care 05/24/2025 12:00 PM SKI PRODUCTION SUPERVISOR Infusion Department of Oncology in [place], [place] [address] [place] [phone] Constantin López M.D. [address] [place] [phone] 05/31/2025 10:00 AM SKI PRODUCTION SUPERVISOR Infusion Department of Oncology in [place], [place] [address] [place] [phone] Constantin López M.D. [address] [place] [phone] documented as of this encounter Visit Diagnoses Not on filedocumented in this encounter Additional Health Concerns Infection Onset Date Last Indicated Resolved Time Protective Environment 01/27/2025 01/27/2025 documented as of this encounter
[2025-03-02 17:46] VITALS: BP 119/76; PULSE 81; RESP 20; TEMP 36.1; O2SAT 98; BMI 25.1
--- OUTSIDE RECORDS SUMMARY | 2025-03-02 17:46 | XMS_ITS | Encounter Summary ---
Author Organization [facility] Address [address] [place] [address] Care Team Providers Care Optical Engineering Technician Name Role Phone Unavailable Primary Care Provider Unavailabl e Reason for Visit * Reason Onset Date Comments Triage Denied 02/04/2025 Encounter Details Date Type Department Care Team (Late st Contact Info) Description 02/04/2025 Clinical Communication Division of Hematology in [place], [place] [address] [place] [address] Harshad Perez M.D. [address] [place] [address] Triage Denied Social History Tobacco Use Types Packs/Day Years [...] things needed for daily living? 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 [address] [place] [phone] 03/08/2025 8:45 AM CDT Infusion Department of Oncology in [place], [place] [address] [place] [address] Constantin López M.D. [address] [place] [phone] 03/08/2025 10:30 AM CDT Comprehensive Visit Department of Vascular Medicine in [place], [place] [address] [place] [address] Vic Flores M.D. [address] [place] [phone] 03/11/2025 12:30 PM CDT Diagnostic Division of Pulmonary Medicine in [place], [place] [address] [place] [phone] Constantin López M.D. [address] [place] [phone] 03/11/2025 2:00 PM CDT Appointment Department of Vascular Medicine in [place], [place] [address] [place] [phone] Constantin López M.D. [address] [place] [phone] Discharge Disposition: Home or Self Care 03/15/2025 9:00 AM CDT Comprehensive Visit Department of Spine in [place], [place] [address] [place] [phone] Hebert Francis APRN, C.N.P., M.S.N. [address] [place] [phone] 03/15/2025 12:30 PM CDT Appointment Department of Laboratory Medicine and Pathology, [facility], in [place], [place] [address] [place] [phone] Harshad Perez M.D. [address] [place] [phone] 03/15/2025 2:30 PM CDT Office Visit Division of Hematology in [place], [place] [address] [place] [phone] Mely Hayden APRN, C.N.P., D.N.P., M.S. [address] [place] [phone] 03/15/2025 4:00 PM CDT Infusion Department of Oncology in [place], [place] [address] [place] [phone] Harshad Perez M.D. [address] [place] [address] 03/16/2025 1:30 PM CDT Comprehensive Visit Division of Pulmonary Medicine in [place], [place] [address] [place] [address] Morgan Peck M.D. [address] [place] [phone] 03/22/2025 11:10 AM CDT Appointment Department of Laboratory Medicine and Pathology, [facility], in [place], [place] [address] [place] [address] Harshad Perez M.D. [address] [place] [phone] 03/22/2025 1:00 PM CDT Infusion Department of Oncology in [place], [place] [address] [place] [address] Hrashad Perez M.D. [address] [place] [phone] 03/29/2025 9:15 AM CDT Appointment Division of Pulmonary Medicine in [place], [place] [address] [place] [address] Harshad Perez M.D. [address] [place] [phone] Discharge Disposition: Home or Self Care 03/29/2025 10:30 AM CDT Appointment Department of Laboratory Medicine and Pathology, [facility], in [place], [place] [address] [place] [address] Harshad Perez M.D. [address] [place] [phone] 03/29/2025 11:15 AM CDT Nurse Only Division of Hematology in [place], [place] [address] [place] [phone] Harshad Perez M.D. [address] [place] [phone] 03/29/2025 1:30 PM CDT Infusion Department of Oncology in [place], [place] [address] [place] [phone] Harshad Perez M.D. [address] [place] [phone] 04/05/2025 10:10 AM CDT Appointment Department of Laboratory Medicine and Pathology, [facility] in [place], [place] [address] [place] [phone] Harshad Perez M.D. [address] [place] [phone] 04/05/2025 12:00 PM CDT Infusion Department of Oncology in [place], [place] [address] [place] [phone] Harshad Perez M.D. [address] [place] [phone] 04/12/2025 11:40 AM CDT Appointment Department of Laboratory Medicine and Pathology, [facility] in [place], [place] [address] [place] [phone] Harshad Perez M.D. [address] [place] [phone] 04/12/2025 1:30 PM CDT Office Visit Division of Hematology in [place], [place] [address] [place] [phone] Tr Hernandez M.D. [address] [place] [phone] 04/12/2025 3:30 PM CDT Infusion Department of Oncology in [place], [place] [address] [place] [address] Harshad Perez M.D. [address] [place] [phone] 04/19/2025 10:15 AM CDT Infusion Department of Oncology in [place], [place] [address] [place] [address] Harshad Perez M.D. [address] [place] [phone] 04/26/2025 10:10 AM CDT Appointment Department of Laboratory Medicine and Pathology, [facility], in [place], [place] [address] [place] [address] Harshad Perez M.D. [address] [place] [phone] 04/26/2025 11:00 AM CDT Nurse Only Division of Hematology in [place], [place] [address] [place] [phone] Harshad Perez M.D. [address] [place] [phone] 04/26/2025 12:00 PM CDT Infusion Department of Oncology in [place], [place] [address] [place] [address] Harshad Perez M.D. [address] [place] [phone] 04/26/2025 1:30 PM CDT Appointment Division of Pulmonary Medicine in [place], [place] [address] [place] [address] Harshad Perez M.D. [address] [place] [phone] Discharge Disposition: Home or Self Care 05/03/2025 10:15 AM CDT Infusion Department of Oncology in [place], [place] [address] [place] [phone] Harshad Perez M.D. [address] [place] [phone] 05/10/2025 9:40 AM ORNAMENTAL PLASTER STICKER Appointment Department of Laboratory Medicine and Pathology, [facility] in [place], [place] [address] [place] [phone] Constantin López M.D. [address] [place] [phone] 05/10/2025 11:30 AM ORNAMENTAL PLASTER STICKER Office Visit Division of Hematology in [place], [place] [address] [place] [phone] Mely Hayden, ANY, C.N.P., D.N.P., M.S. [address] [place] [phone] 05/10/2025 1:00 PM ORNAMENTAL PLASTER STICKER Infusion Department of Oncology in [place], [place] [address] [place] [phone] Constantin López M.D. [address] [place] [phone] 05/17/2025 10:15 AM ORNAMENTAL PLASTER STICKER Infusion Department of Oncology in [place], [place] [address] [place] [phone] Constantin López M.D. [address] [place] [phone] 05/24/2025 10:00 AM ORNAMENTAL PLASTER STICKER Appointment Department of Laboratory Medicine and Pathology, [facility] in [place], [place] [address] [place] [phone] Constantin López M.D. [address] [place] [phone] 05/24/2025 10:45 AM ORNAMENTAL PLASTER STICKER Appointment Division of Pulmonary Medicine in [place], [place] [address] [place] [phone] Harshad Perez M.D. [address] [place] [phone] Discharge Disposition: Home or Self Care 05/24/2025 12:00 PM ORNAMENTAL PLASTER STICKER Infusion Department of Oncology in [place], [place] [address] [place] [phone] Constantin López M.D. [address] [place] [phone] 05/31/2025 10:00 AM ORNAMENTAL PLASTER STICKER Infusion Department of Oncology in [place], [place] [address] [place] [phone] Constantin López M.D. [address] [place] [phone] documented as of this encounter Visit Diagnoses Not on filedocumented in this encounter Additional Health Concerns Infection Onset Date Last Indicated Resolved Time Protective Environment 01/27/2025 01/27/2025 documented as of this encounter
--- OUTSIDE RECORDS SUMMARY | 2025-03-02 17:46 | XMS_ITS | Encounter Summary ---
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 [address] [place] [address] Phone: tel:[phone] fax: [facility] Referral ID Status Reason Start Date Expiration Date V isits Requested Visits Authorized [id number] Authorized 02/05/2025 08/07/2026 1 1 Scheduling Instructions after my BMT visit, same day ideally or with a fuure chemo visit or video * Outpatient (Routine) - Authorized Specialty Diagnoses / Procedures Referred By Teresa carvalho Referred To Contact Hematology Oncology Harshad Perez M.D. [address] [place] [address] Phone: tel:[phone] fax: [facility] Referral ID Status Reason Start Date Expiration Date V isits Requested Visits Authorized [id number] Authorized 02/05/2025 08/07/2026 1 1 Scheduling Instructions BMT consult with one of his future chemo visits Encounter Details Date Type Department Care Team (Late st Contact Info) Description 02/05/2025 Orders Only Division of Hematology in [place], [place] [address] [place] [address] Harshad Perez M.D. [address] [place] [address] Multiple Myeloma Not Having Achieved Remission (HCC) [...] needed for daily living? No 01/27/2025 [facility] Utilities Answer Date Recorded In the [...] PM CDT Legal Sex Male 6:33 AM REJECTED ITEMS CLERK Gender Identity Male 01/27/2025 2:34 PM CDT Sexual Orientation Straight 01/27/2025 2: 34 PM CDT documented as of this encounter Plan of Treatment Upcoming Encounters Date Type Department Care Team (Latest Contact Info) Description 03/08/2025 8:00 AM CDT Appointment Department of Laboratory Medicine and Pathology, [facility], in [place], [place] [address] [place] [phone] Constantin López M.D. [address] [place] [phone] 03/08/2025 8:45 AM CDT Infusion Department of Oncology in [place], [place] [address] [place] [phone] Constantin López M.D. [address] [place] [phone] 03/08/2025 10:30 AM CDT Comprehensive Visit Department of Vascular Medicine in [place], [place] [address] [place] [phone] Vic Flores M.D. [address] [place] [phone] 03/11/2025 12:30 PM CDT Diagnostic Division of Pulmonary Medicine in [place], [place] [address] [place] [phone] Constantin López M.D. [address] [place] [phone] 03/11/2025 2:00 PM CDT Appointment Department of Vascular Medicine in [place], [place] [address] [place] [phone] Constantin López M.D. [address] [place] [phone] Discharge Disposition: Home or Self Care 03/15/2025 9:00 AM CDT Comprehensive Visit Department of Spine in [place], [place] [address] [place] [phone] Hebert Francis APRN, Mavis.N.P., M.S.N. [address] [place] [phone] 03/15/2025 12:30 PM CDT Appointment Department of Laboratory Medicine and Pathology, [facility] in [place], [place] [address] [place] [phone] Harshad Perez M.D. [address] [place] [phone] 03/15/2025 2:30 PM CDT Office Visit Division of Hematology in [place], [place] [address] [place] [phone] Mely Hayden APRN, Mavis.N.P., D.N.P., M.S. [address] [place] [phone] 03/15/2025 4:00 PM CDT Infusion Department of Oncology in [place], [place] [address] [place] [phone] Harshad Perez M.D. [address] [place] [phone] 03/16/2025 1:30 PM CDT Comprehensive Visit Division of Pulmonary Medicine in [place], [place] [address] [place] [phone] Morgan Peck M.D. [address] [place] [phone] 03/22/2025 11:10 AM CDT Appointment Department of Laboratory Medicine and Pathology, [facility], in [place], [place] [address] [place] [address] Harshad Perez M.D. [address] [place] [phone] 03/22/2025 1:00 PM CDT Infusion Department of Oncology in [place], [place] [address] [place] [address] Harshad Perez M.D. [address] [place] [phone] 03/29/2025 9:15 AM CDT Appointment Division of Pulmonary Medicine in [place], [place] [address] [place] [address] Harshad Perez M.D. [address] [place] [phone] Discharge Disposition: Home or Self Care 03/29/2025 10:30 AM CDT Appointment Department of Laboratory Medicine and Pathology, [facility] in [place], [place] [address] [place] [address] Harshad Perez M.D. [address] [place] [phone] 03/29/2025 11:15 AM CDT Nurse Only Division of Hematology in [place], [place] [address] [place] [address] Harshad Perez M.D. [address] [place] [phone] 03/29/2025 1:30 PM CDT Infusion Department of Oncology in [place], [place] [address] [place] [address] Harshad Perez M.D. [address] [place] [phone] 04/05/2025 10:10 AM CDT Appointment Department of Laboratory Medicine and Pathology, [facility] in [place], [place] [address] [place] [address] Harshad Perez M.D. [address] [place] [phone] 04/05/2025 12:00 PM CDT Infusion Department of Oncology in [place], [place] [address] [place] [address] Harshad Perez M.D. [address] [place] [phone] 04/12/2025 11:40 AM CDT Appointment Department of Laboratory Medicine and Pathology, [facility] in [place], [place] [address] [place] [address] Harshad Perez M.D. [address] [place] [phone] 04/12/2025 1:30 PM CDT Office Visit Division of Hematology in [place], [place] [address] [place] [phone] Tr Hernandez M.D. [address] [place] [phone] 04/12/2025 3:30 PM CDT Infusion Department of Oncology in [place], [place] [address] [place] [address] Harshad Perez M.D. [address] [place] [phone] 04/19/2025 10:15 AM CDT Infusion Department of Oncology in [place], [place] [address] [place] [address] Harshad Perez M.D. [address] [place] [phone] 04/26/2025 10:10 AM CDT Appointment Department of Laboratory Medicine and Pathology, [facility], in [place], [place] [address] [place] [phone] Harshad Perez M.D. [address] [place] [phone] 04/26/2025 11:00 AM CDT Nurse Only Division of Hematology in [place], [place] [address] [place] [phone] Harshad Perez M.D. [address] [place] [phone] 04/26/2025 12:00 PM CDT Infusion Department of Oncology in [place], [place] [address] [place] [phone] Harshad Perez M.D. [address] [place] [phone] 04/26/2025 1:30 PM CDT Appointment Division of Pulmonary Medicine in [place], [place] [address] [place] [phone] Harshad Perez M.D. [address] [place] [phone] Discharge Disposition: Home or Self Care 05/03/2025 10:15 AM CDT Infusion Department of Oncology in [place], [place] [address] [place] [phone] Harshad Perez M.D. [address] [place] [phone] 05/10/2025 9:40 AM REJECTED ITEMS CLERK Appointment Department of Laboratory Medicine and Pathology, [facility], in [place], [place] [address] [place] [address] Constantin López M.D. [address] [place] [phone] 05/10/2025 11:30 AM REJECTED ITEMS CLERK Office Visit Division of Hematology in [place], [place] [address] [place] [phone] Mely Hayden, ANY, C.N.P., D.N.P., M.S. [address] [place] [phone] 05/10/2025 1:00 PM REJECTED ITEMS CLERK Infusion Department of Oncology in [place], [place] [address] [place] [phone] Constantin López M.D. [address] [place] [phone] 05/17/2025 10:15 AM REJECTED ITEMS CLERK Infusion Department of Oncology in [place], [place] [address] [place] [phone] Constantin López M.D. [address] [place] [phone] 05/24/2025 10:00 AM REJECTED ITEMS CLERK Appointment Department of Laboratory Medicine and Pathology, [facility], in [place], [place] [address] [place] [phone] Constantin López M.D. [address] [place] [phone] 05/24/2025 10:45 AM REJECTED ITEMS CLERK Appointment Division of Pulmonary Medicine in [place], [place] [address] [place] [phone] Harshad Perez M.D. [address] [place] [phone] Discharge Disposition: Home or Self Care 05/24/2025 12:00 PM REJECTED ITEMS CLERK Infusion Department of Oncology in [place], [place] [address] [place] [phone] Constantin López M.D. [address] [place] [address] 05/31/2025 10:00 AM REJECTED ITEMS CLERK Infusion Department of Oncology in [place], [place] [address] [place] [address] Constantin López M.D. [address] [place] [address] Scheduled Referrals Name Type Priority Associated Diagnoses Order Schedule Hematology office visit (clinic) [place]; BMT; General Outpatient Referral Routine Expected: 08/08/2025, Expires: 05/08/2026 Transplant - Social work consult (clinic) Outpatient Referral Routine Multiple Myeloma Not Having Achieved Remission (HCC) Expected: 02/05/2025, Expires: 05/08/2026 documented as of this encounter Visit Diagnoses Diagnosis Multiple Myeloma Not Having Achieved Remission (HCC)- Primary documented in this encounter Additional Health Concerns Infection Onset Date Last Indicated Resolved Time Protective Environment 01/27/2025 01/27/2025 documented as of this encounter
[2025-03-02] MEDS: LIDOCAINE 5% PATCH 2 PATCH TRANSDERMA (18:09)
--- NOTE | 2025-03-02 18:54 | CRLHL7_ITS ---
For Patients: As a result of the 21st Century Cures Act, medical imaging exams and procedure reports are released immediately into your electronic medical record. You may view this report before your referring provider. If you have questions, please contact your health care provider. INDICATION: Upper abdomen and back pain. TECHNIQUE: CT abdomen and pelvis acquired with 81 cc Omnipaque 350 IV contrast. COMPARISON: None. FINDINGS: Lower chest: Unremarkable. Liver: Normal in size and attenuation. Small hypodense lesion in the left hepatic lobe measuring 14 x 11 mm, likely cyst. Too small to characterize few hypoattenuating foci in the right hepatic lobe. Gallbladder and bile ducts: No stones or inflammation. No biliary dilatation. Pancreas: No mass or inflammation. Spleen: Normal in size. No masses. Adrenal glands: No suspicious mass. Kidneys: Bilateral kidneys are normal in size with symmetric enhancement. No nephrolithiasis or hydronephrosis. Small hypodense focus at the lower pole of right kidney, too small to characterize. GI tract: No findings of bowel obstruction. Normal appendix. Vasculature: Abdominal aorta is normal in caliber. Lymph nodes: No lymphadenopathy. Peritoneum/Abdominal Wall: No free air or significant free fluid. Hernia. Small fat containing umbilical. Nonspecific hernia air foci mid anterior abdominal wall, correlate clinically for any subcutaneous injections. Pelvis: Prostatomegaly with intra prostatic calcification. Bones: Multiple lucent bony lesions throughout the axial and appendicular skeleton,. Large Schmorl`s node along superior endplate of L3. Of a vertebral body hemangioma suggestion at L3 level with coarse trabecular pattern. IMPRESSION: 1. Multiple lucent bony lesions throughout axial and appendicular skeleton. Findings can be seen with diffuse demineralization/osteoporosis, multiple myeloma or less likely lytic bony metastasis in the appropriate clinical setting. Clinical and lab value correlation is recommended. 2. Scattered hypoattenuating liver lesions, too small to characterize, largest in the left hepatic lobe is likely a cyst. Further assessment with liver ultrasound would be of help. Please note that all CT scans at this facility use dose modulation, iterative reconstruction, and/or weight-based dosing when appropriate to reduce radiation dose to as low as reasonably achievable. Dictated by Alesia Reddy MD @ 03/02/2025 8:22:23 PM (Electronically Signed)
[2025-03-02] MEDS: FAMOTIDINE 10 MG/ML inj 20 MG IVP (19:09)
[2025-03-02 19:11] LABS: Appearance Urine Clear (Clear)
[2025-03-02 19:28] LABS: Hematocrit 32.4 % (37.0-53.0); Hemoglobin* 10.7 gm/dL (13.5-17.5); Immature Granulocytes Abs Auto 0.01 K/uL (0.00-0.30); Immature Granulocytes Pct Auto 0.2 %; Lymphocytes Absolute Auto 2.28 K/uL (0.90-2.90); Mean Corpuscular HGB Conc 33 gm/dL (32-36); Mean Corpuscular Hemoglobin 30 pg (26-34); Mean Corpuscular Volume 90 fL (80-100); RDW Coefficient of Variation % 14.7 % (11.5-15.5); Red Blood Count 3.61 m/uL (4.30-5.90); White Blood Count* 6.03 K/uL (4.50-11.00)
[2025-03-02 19:33] LABS: Creatinine, Point-of-Care* 1.6 mg/dl (0.6-1.3)
[2025-03-02 19:34] LABS: Slide Review Reflex No
[2025-03-02 19:44] LABS: Albumin* 3.3 g/dL (3.3-5.0); Chloride* 100 mmol/L (96-114); Potassium* 4.0 mmol/L (3.6-5.1); Sodium* 128 mmol/L (135-149)
[2025-03-02 19:46] LABS: Blood Urea Nitrogen* 34 mg/dL (7-30); Creatinine* 1.4 mg/dL (0.5-1.5); Est. Creatinine Clearance* 52.93; Estimated Glomerular Filt Rate 57 ml/min
[2025-03-02 19:47] LABS: Alanine Aminotransferase* 15 U/L (4-50); Alkaline Phosphatase* 72 U/L (40-150); Anion Gap 7 mEq/L (7-15); Aspartate Amino Transferase* 22 U/L (12-35); Bilirubin Direct* 0.1 mg/dL (0.0-0.5); Bilirubin Total* 0.2 mg/dL (0.1-1.5); Calcium* 8.3 mg/dL (8.4-10.6); Carbon Dioxide* 21 mmol/L (20-32); Glucose* 119 mg/dL (60-115); Total Protein* 7.0 g/dL (6.0-8.3)
[2025-03-02 19:52] LABS: Cannabinoid Screen Urine Negative (Negative); Methamphetamines Screen Urine Negative (Negative); Tricyclic Antidepressant Urine Negative (Negative)
[2025-03-02 20:05] VITALS: O2SAT 97
[2025-03-02] MEDS: MORPHINE 4 MG/ML INJ IVP (20:14)
== END 2025-03-02 21:32 | disposition home or self-care (01) ==
PROVIDERS: Emergency Provider Family Medicine
DX: M54.6 Pain in thoracic spine (principal); K59.00 Constipation, unspecified; R10.9 Unspecified abdominal pain
CPT/HCPCS: 36415; 74177; 80048; 80076; 80306; 81001; 82565; 83690; 83735; 85025; 87086; 94761; 96372; 96374; 96375; 99284; 99285; A9270; J1308; J1885; J2270; J7030; Q9967